=== PATIENT | male | born 1940 | race African-American/Black ===

== ENCOUNTER 2017-03-13 18:26 | Emergency (ER) | payer BC ==
[2017-03-13 18:35] VITALS: BP 121/57
--- NOTE | 2017-03-13 20:03 | UC ---
General HPI - HPI Summary HPI Summary: ONSET OF PROGRESSIVE FATIGUE OVER THE PAST 2 DAYS. ALSO HAS SOB, CHILLS AND "I JUST FEEL TERRIBLE". APPETITE HAS BEEN SIGNIFICANTLY DECREASED. IS C/O INTERMITTENT RIGHT SIDED ABDOMINAL PAIN. DENIES ANY CHANGE IN WEIGHT. NO ORTHOPNEA. - History of Current Complaint Chief Complaint: UCGeneralIllness Stated Complaint: TIRED,SOB,FINGERS CRAMPING Time Seen by Provider: 03/13/17 19:41 Hx Obtained From: Patient Onset/Duration: Gradual Onset, Lasting Days, Still Present Timing: Constant Onset Severity: Moderate Current Severity: Moderate Pain Intensity: 0 - Allergy/Home Medications Allergies/Adverse Reactions: Allergies Allergy/AdvReac Type Severity Reaction Status Date / Time Cephalexin [From Keflex] AdvReac Severe Nausea And Verified 03/13/17 18:35 Vomiting Home Medications: Home Medications Doxercalciferol CAP(NF) [Hectorol CAP(NF)] 0.5 mcg PO DAILY 03/13/17 [History Confirmed 03/13/17] Tamsulosin CAP* [Flomax CAP*] 0.4 mg PO DAILY 03/13/17 [History Confirmed ] Tizanidine HCl [Zanaflex] 2 mg PO BID PRN 03/13/17 [History Confirmed 03/13/17] PMH/Surg Hx/FS Hx/Imm Hx - Additional Past Medical History Additional PMH: ANEMIA Endocrine History: Diabetes Cardiovascular History: Hypertension, Congestive Heart Failure Respiratory History: COPD, Asthma Other History Of: Anticoagulant Therapy - Surgical History Surgical History: Yes Surgery Procedure, Year, and Place: ABDOMINAL HERNIA REPAIR, skull fracture in the . Aortic valve replacement September 2014 - Family History Known Family History: Positive: Cardiac Disease, Hypertension - Social History Alcohol Use: None Alcohol Amount: SOCIAL Substance Use Type: None, Other Substance Use Comment - Amount & Last Used: pt confused; current substance use is unknown, but no known history Smoking Status (MU): Light Every Day Tobacco Smoker Type: Cigars Amount Used/How Often: 1-2 cigarillos per day Length of Time of Smoking/Using Tobacco: 57 years Have You Smoked in the Last Year: Yes When Did the Patient Quit Smoking/Using Tobacco: 2014 Household Exposure Type: Cigarettes - Immunization History Most Recent Influenza Vaccination: 2014 Most Recent Tetanus Shot: 2013 Most Recent Pneumonia Vaccination: 2013 Review of Systems Constitutional: Chills, Fatigue Respiratory: Shortness Of Breath, Cough Cardiovascular: Negative Gastrointestinal: Abdominal Pain Genitourinary: Negative Musculoskeletal: Negative All Other Systems Reviewed And Are Negative: Yes Physical Exam Triage Information Reviewed: Yes Appearance: No Pain Distress, Well-Nourished, Other: - SEEMS FATIGUED Vital Signs: Initial Vital Signs Temp 98.9 F 03/13/17 18:32 Pulse 72 03/13/17 18:32 Resp 18 03/13/17 18:32 BP 121/57 03/13/17 18:32 Pulse Ox 97 03/13/17 18:32 Vital Signs Reviewed: Yes Eyes: Positive: Conjunctiva Clear ENT: Positive: Hearing grossly normal Neck: Positive: Supple Respiratory Exam: Normal Cardiovascular: Positive: Pulses Normal, Murmur:Sys:Grade _?_/ - 2/6 SYSTOLIC MURMUR Abdomen Description: Positive: Nontender, Soft. Negative: Guarding Musculoskeletal: Positive: No Edema Neurological: Positive: Alert Psychological: Positive: Age Appropriate Behavior Skin: Negative: rashes Diagnostics - EKG Cardiac Rate: NL - 61BPM Cardiac Rhythm: Sinus: Normal Ectopy: None ST Segment: Normal Course/Dx - Differential Dx - Multi-Symptom Provider Diagnoses: FATIGUE/SOB Discharge - Discharge Plan Condition: Stable Disposition: OTHER Discharge Disposition Comment: [place] [facility] [place] [place] Patient Education Materials: Dyspnea (ED), Fatigue (ED) Referrals: Romina Bolden MD [Primary Care Provider] - If Needed Additional Instructions: GO DIRECTLY TO THE ER FROM HERE FOR FURTHER EVALUATION.
== END 2017-03-13 20:26 ==
LOC: UCEAST 18:26
DX: R53.83 Other fatigue (principal); R06.02 Shortness of breath; E11.9 Type 2 diabetes mellitus without complications; I50.9 Heart failure, unspecified; I10 Essential (primary) hypertension; Z95.2 Presence of prosthetic heart valve; Z79.01 Long term (current) use of anticoagulants; J44.9 Chronic obstructive pulmonary disease, unspecified; Z88.1 Allergy status to other antibiotic agents; F17.210 Nicotine dependence, cigarettes, uncomplicated
CPT/HCPCS: 93005; 99212; G0463

== ENCOUNTER 2017-03-21 07:35 | Emergency (ER) | payer BC ==
[2017-03-21 08:11] VITALS: BP 134/66
--- NOTE | 2017-03-21 09:27 | UC ---
Rosemarie Núñez Rebecca, scribed for Noemí Avendaño MD on 03/21/17 at 0814 . Upper Extremity HPI - HPI Summary HPI Summary: Pt is a 76 y/o M who presents to [facility] unaccompanied with a CC of sudden onset R 2nd finger swelling. Sx began yesterday morning upon waking up, citing a possible spider bite. Reports he is having difficulty moving the finger secondary to swelling and pain which is currently ranked 9/10. Yesterday afternoon he soaked the finger in Epsom salt which improved sx, though the swelling returned this morning upon waking up. Additionally c/o chills. Denies CP, SOB, abdominal pain, N/V and dysuria. No problems with Sulfa medication. Pt reports he is right-handed. - History of Current Complaint Chief Complaint: UCUpperExtremity Stated Complaint: SWOLLEN FINGER Time Seen by Provider: 03/21/17 07:44 Hx Obtained From: Patient Onset/Duration: Lasting Days - Yesterday, Still Present Severity Currently: Severe Pain Intensity: 9 Pain Scale Used: 0-10 Numeric Location Of Pain: Is Discrete @ - Right 2nd finger Aggravating Factor(s): Nothing Alleviating Factor(s): Other: - Epsom salt soak Associated Signs And Symptoms: Positive: Swelling Related History: Dominant Hand Right - Allergies/Home Medications Allergies/Adverse Reactions: Allergies Allergy/AdvReac Type Severity Reaction Status Date / Time Cephalexin [From Keflex] AdvReac Severe Nausea And Verified 03/21/17 08:05 Vomiting PMH/Surg Hx/FS Hx/Imm Hx Endocrine History: Diabetes Cardiovascular History: Hypertension Respiratory History: COPD Other History Of: Anticoagulant Therapy - Surgical History Surgical History: Yes Surgery Procedure, Year, and Place: ABDOMINAL HERNIA REPAIR, skull fracture in the . Aortic valve replacement September 2014 - Family History Known Family History: Positive: Cardiac Disease, Hypertension Negative: Diabetes - Social History Alcohol Use: None Alcohol Amount: SOCIAL Substance Use Type: None, Other Substance Use Comment - Amount & Last Used: pt confused; current substance use is unknown, but no known history Smoking Status (MU): Light Every Day Tobacco Smoker Type: Cigars Amount Used/How Often: 1-2 cigarillos per day Length of Time of Smoking/Using Tobacco: 57 years Have You Smoked in the Last Year: Yes When Did the Patient Quit Smoking/Using Tobacco: 2014 Household Exposure Type: Cigarettes - Immunization History Most Recent Influenza Vaccination: 2014 Most Recent Tetanus Shot: 2013 Most Recent Pneumonia Vaccination: 2013 Review of Systems Constitutional: Chills Skin: Other - Right 2nd finger swelling and pain Eyes: Negative ENT: Negative Respiratory: Negative Cardiovascular: Negative Gastrointestinal: Negative Genitourinary: Negative Motor: Negative Neurovascular: Negative Musculoskeletal: Other: - Difficulty moving R 2nd finger secondary to swelling and pain Neurological: Negative Psychological: Negative All Other Systems Reviewed And Are Negative: Yes - Comments Additional Review of Systems Comments: NEGATIVE: CP, SOB, abdominal pain, N/V and dysuria Physical Exam Triage Information Reviewed: Yes Vital Signs: Initial Vital Signs Temp 98.4 F 03/21/17 08:08 Pulse 67 03/21/17 08:08 Resp 16 03/21/17 08:08 BP 134/66 03/21/17 08:08 Pulse Ox 99 03/21/17 08:08 Vital Signs Reviewed: Yes - Additional Comments Appearance: Well-appearing Eyes: Normal, Conjunctiva clear ENT: Normal ENT inspection. Dental: Normal Neck: Supple, non-tender, no lymphadenoatphy Lungs: Lungs clear, normal breath sounds, no respiratory distress, no accessory muscle use. Heart: RRR, murmur which he has known of, pulses normal. Abdomen: Nontender, soft. Musculoskeletal: The right proximal finger is mildly to moderately swollen and very tender with a slight amount of erythema. The finger is slightly warm to touch and he is able to move the finger. Sensation is intact and capillary refill is brisk. Neurological: Normal Psychiatric: Normal Skin: No open wound, bite errol or discharge. Upper Extremity Course/Dx - Course Course Of Treatment: Pt is a 76 y/o M who presents to [facility] unaccompanied with a CC of sudden onset R 2nd finger swelling. Sx began yesterday morning upon waking up, citing a possible spider bite. Reports he is having difficulty moving the finger secondary to swelling and pain which is currently ranked 9/ 10. Yesterday afternoon he soaked the finger in Epsom salt which improved sx, though the swelling returned this morning upon waking up. Additionally c/o chills. Denies CP, SOB, abdominal pain, N/V and dysuria. No problems with Sulfa medication. Pt reports he is right-handed. Pt will be D/C to home with Dx of cellulitis with Rx for Bactrim and a follow up with his PCP. He understands and agrees. Allergies noted. Elevated BP noted. - Differential Dx/Diagnosis Provider Diagnoses: 1. Cellulitis Discharge - Discharge Plan Condition: Stable Disposition: HOME Prescriptions: Sulfamethox/Trimethoprim DS* [Bactrim DS 800/160 TAB*] 1 tab PO BID #20 tab Patient Education Materials: Cellulitis (ED) Referrals: Romina Bolden MD [Primary Care Provider] - 2 Days The documentation as recorded by the Rosemarie camargo Rebecca accurately reflects the service I personally performed and the decisions made by , Noemí Avendaño MD.
== END 2017-03-21 09:25 | disposition home or self-care (01) ==
LOC: UCEAST 07:35
DX: L03.011 Cellulitis of right finger (principal); R68.83 Chills (without fever); E11.9 Type 2 diabetes mellitus without complications; I10 Essential (primary) hypertension; J44.9 Chronic obstructive pulmonary disease, unspecified; Z95.2 Presence of prosthetic heart valve; Z79.01 Long term (current) use of anticoagulants; Z88.1 Allergy status to other antibiotic agents; Z72.0 Tobacco use
CPT/HCPCS: 99212; G0463

== ENCOUNTER 2017-03-31 12:58 | Emergency (ER) | payer BC ==
[2017-03-31 13:12] VITALS: BP 129/55
--- NOTE | 2017-03-31 14:57 | RAD ---
HISTORY: Right index finger swelling and pain COMPARISONS: None VIEWS: 3, Frontal, lateral, and oblique views of the second digit of the right hand FINDINGS: BONE DENSITY: Normal. BONES: There is no displaced fracture. There is no appreciable erosion or periosteal reaction. JOINTS: There is no arthropathy. ALIGNMENT: There is no dislocation. SOFT TISSUES: There is soft tissue swelling centered at the PIP joint. OTHER FINDINGS: None. IMPRESSION: SOFT TISSUE SWELLING. NO ACUTE OSSEOUS INJURY. IF SYMPTOMS PERSIST, RECOMMEND REPEAT IMAGING.
--- NOTE | 2017-03-31 15:25 | UC ---
Progress - Progress Note Progress Note: XRAY SHOWS SOFT TISSUE SWELLING BUT NO ACUTE OSSEOUS INJURY. D/C PLAN PER DR. LENNIE RENTERIA, PREDNISONE, BLOOD WORK - OMKAR MEADOWS MD
[2017-03-31 18:36] LABS: Hematocrit 36 % (42-52); Hemoglobin 11.9 g/dl (14.0-18.0); Mean Corpuscular HGB Conc 33 g/dl (31-36); Mean Corpuscular Hemoglobin 29 pg (27-31); Mean Corpuscular Volume 89 fL (80-94); Mean Platelet Volume 7 um3 (7.4-10.4); Red Cell Distribution Width 15 % (10.5-15); White Blood Count 6.5 10^3/ul (3.5-10.8)
[2017-03-31 18:48] LABS: BUN/Creatinine Ratio 14.1 (8-20); C Reactive Protein 3.82 mg/L (< 5.00); Calcium 8.8 mg/dL (8.6-10.3); EGFR African American 15.6 (>60); EGFR Non-African American 12.1 (>60)
[2017-03-31 18:51] LABS: Potassium 6.3 mmol/L (3.5-5.0)
--- NOTE | 2017-03-31 19:07 | UC ---
Progress - Progress Note Progress Note: XRAY SHOWS SOFT TISSUE SWELLING BUT NO ACUTE OSSEOUS INJURY. D/C PLAN PER DR. LENNIE RENTERIA, PREDNISONE, BLOOD WORK - OMKAR MEADOWS MD 03/31/17 7:06 PM notify pt of critical lab value (panic value for K+) he should go to the ER to have blood retested Wong Gibbs MD
[2017-03-31 19:45] LABS: Erythrocyte Sed Rate 34 mm/Hr (0-40)
--- NOTE | 2017-04-07 08:25 | UC ---
Tj Núñez Nilda, scribed for Monika Jackson MD on 03/31/17 at 1445 . Skin Complaint HPI - HPI Summary HPI Summary: This patient is a 76 y.o. M presenting to [facility] with a chief complaint of skin irritation to right 2nd finger since 02/28/17. On 03/21/17 the patient was seen for cellulitis and was treated with a full course of Bactrim that he finished last night. He states that his symptoms have not resolved. He reports pain and swelling to the right 2nd finger that radiates up right arm, but denies purulence from finger. He rates the pain 8/10 in severity. Patient is unsure how symptoms occurred but notes that 1 week before cellulitis onset, he had gotten stung by a wasp in the webbing between the thumb and finger on the right hand. PMHx includes DM and sepsis. - History of Current Complaint Chief Complaint: UCSkin Time Seen by Provider: 03/31/17 13:47 Stated Complaint: SKIN ISSUE Hx Obtained From: Patient Onset/Duration: Gradual Onset, Lasting Weeks, Still Present Current Severity: Moderate Pain Intensity: 8 Pain Scale Used: 0-10 Numeric Location: Hand (Right) Character: Swelling, Painful Alleviating Factor(s): Nothing - Allergy/Home Medications Allergies/Adverse Reactions: Allergies Allergy/AdvReac Type Severity Reaction Status Date / Time Cephalexin [From Keflex] AdvReac Severe Nausea And Verified 03/31/17 20:46 Vomiting Review of Systems Respiratory: Negative Musculoskeletal: Other: - right 2nd finger swelling and pain that radiates up right arm; negative purulence All Other Systems Reviewed And Are Negative: Yes PMH/Surg Hx/FS Hx/Imm Hx Other History Of: Anticoagulant Therapy - Surgical History Surgical History: Yes Surgery Procedure, Year, and Place: ABDOMINAL HERNIA REPAIR, skull fracture in the . Aortic valve replacement September 2014 - Family History Known Family History: Positive: Cardiac Disease, Hypertension Negative: Diabetes - Social History Alcohol Use: None Alcohol Amount: SOCIAL Substance Use Type: None, Other Substance Use Comment - Amount & Last Used: pt confused; current substance use is unknown, but no known history Smoking Status (MU): Light Every Day Tobacco Smoker Type: Cigars Amount Used/How Often: 1-2 cigarillos per day Length of Time of Smoking/Using Tobacco: 57 years Have You Smoked in the Last Year: Yes When Did the Patient Quit Smoking/Using Tobacco: 2014 Household Exposure Type: Cigarettes - Immunization History Most Recent Influenza Vaccination: 2014 Most Recent Tetanus Shot: 2013 Most Recent Pneumonia Vaccination: 2013 Physical Exam Triage Information Reviewed: Yes Appearance: Well-Nourished Vital Signs: Initial Vital Signs Temp 97.9 F 03/31/17 13:06 Pulse 72 03/31/17 13:06 Resp 18 03/31/17 13:06 BP 129/55 03/31/17 13:06 Pulse Ox 99 03/31/17 13:06 Vital Signs Reviewed: Yes Eye Exam: Normal ENT Exam: Normal Respiratory Exam: Normal Respiratory: Positive: Other: - no dyspnea, no tachypnea, normal respiratory rate Cardiovascular Exam: Normal Cardiovascular: Positive: Other: - Heart rate regular, good general skin color, good capillary refill Abdominal Exam: Normal Abdomen Description: Positive: Nontender, No Organomegaly, Soft Bowel Sounds: Positive: Present Musculoskeletal: Positive: Strength Intact, Other: - Swollen at right PIP, Palmar area swelling that extends to distal 2nd NTP, no stinger visible. Patient can move hand in all directions through all extension and retraction movements are limited. Distal sensation to light touch present. Small amount of hemosiderosis. Cap refill less than 2 seconds. Neurological Exam: Normal Neurological: Positive: Other: - nonfocal, grossly intact Psychological Exam: Normal Psychological: Positive: Other: - conversing easily and appropriately Skin Exam: Normal Skin: Positive: Other - no visible or reported rash Course/Dx - Course Course Of Treatment: Will follow up, pending XRAY of hand (right index finger). s/o Dr. Li 14:30 - Diagnoses Provider Diagnoses: cellulitis R hand Discharge - Discharge Plan Condition: Stable Disposition: HOME Patient Education Materials: Cellulitis (ED), Swollen Joint (ED) Forms: *Work Release Referrals: Romina Bolden MD [Primary Care Provider] - Additional Instructions: Follow up Dr. Bolden ([place]) in 2 days. Seek medical attention for worse or new problems in the meantime. Xray finger today Blood work: cbc bmp sed rate crp Watch blood sugar closely, jace next 6 days. Check tetanus immunization status at your primary care physician office. The documentation as recorded by the Tj camargo Nilda accurately reflects the service I personally performed and the decisions made by me, Monika Jackson MD.
== END 2017-03-31 14:55 | disposition home or self-care (01) ==
LOC: UCEAST 12:58
DX: L03.113 Cellulitis of right upper limb (principal); Z95.2 Presence of prosthetic heart valve; Z79.01 Long term (current) use of anticoagulants; Z88.1 Allergy status to other antibiotic agents; Z72.0 Tobacco use
CPT/HCPCS: 36415; 73140; 80048; 85025; 85652; 86140; 99212; G0463

== ENCOUNTER 2017-03-31 20:38 | Emergency (ER) | payer BC ==
[2017-03-31 23:13] LABS: Hematocrit 36 % (42-52); Hemoglobin 11.9 g/dl (14.0-18.0); Mean Corpuscular HGB Conc 33 g/dl (31-36); Mean Corpuscular Hemoglobin 30 pg (27-31); Mean Corpuscular Volume 88 fL (80-94); Mean Platelet Volume 7 um3 (7.4-10.4); Red Blood Count 4.03 10^6/ul (4.0-5.4); Red Cell Distribution Width 15 % (10.5-15); White Blood Count 6.4 10^3/ul (3.5-10.8)
[2017-03-31 23:28] LABS: Albumin 3.9 g/dL (3.2-5.2); BUN/Creatinine Ratio 15.8 (8-20); Calcium 8.7 mg/dL (8.6-10.3); EGFR African American 16.6 (>60); EGFR Non-African American 12.9 (>60); Globulin 3.3 g/dL (2-4); Total Bilirubin 0.3 mg/dL (0.2-1.0); Total Protein 7.2 g/dL (6.4-8.9)
[2017-03-31 23:55] LABS: Potassium 5.7 mmol/L (3.5-5.0)
[2017-04-01] MEDS ORDERED: Sodium Polystyrene ORAL.SOL* 15 GM/60 ML BTL PO ONE (01:18)
--- NOTE | 2017-04-01 01:24 | ED ---
Parish Núñez Benjamin, scribed for Brendan Pringle MD on 04/01/17 at 0027 . Complex/Multi-Sys Presentation - HPI Summary HPI Summary: 76yo male comes to ED after being advised by PA at . Pt recently had a right index finger cellulitis from a bug bite, which pt took abx course given from , but right index finger pain and funny sensation continued so pt returned this afternoon. Pt got a call from to come to ED for abnormal blood results: BUN of 67, creatinine of 4.75, and potassium of 6.3. Pt is diabetic and has hx of kidney issue from DM. - History Of Current Complaint Chief Complaint: EDGeneral Time Seen by Provider: 04/01/17 00:14 Hx Obtained From: Patient Onset/Duration: Gradual Onset, Lasting Weeks, Still Present Timing: Constant Severity Currently: Mild Severity Initially: Mild Location: Pain At: - right index finger - Allergies/Home Medications Allergies/Adverse Reactions: Allergies Allergy/AdvReac Type Severity Reaction Status Date / Time Cephalexin [From Keflex] AdvReac Severe Nausea And Verified 03/31/17 20:46 Vomiting PMH/Surg Hx/FS Hx/Imm Hx Endocrine/Hematology History: Reports: Hx Anticoagulant Therapy, Hx Blood Transfusions, Hx Diabetes - type 2 Denies: Hx Thyroid Disease, Hx Unexplained Bleeding Cardiovascular History: Reports: Hx Congestive Heart Failure, Hx Coronary Artery Disease, Hx Hypercholesterolemia, Hx Hypertension, Hx Valvular Heart Disease - aortic valve replaced Denies: Hx Auto Implanted Cardiovert Defib, Hx Congenital Heart Disease, Hx Myocardial Infarction, Hx Pacemaker/ICD, Hx Syncope Comment Only: Other Cardiovascular Problems/Disorders - AORTIC STENOSIS Respiratory History: Reports: Hx Asthma, Hx Chronic Obstructive Pulmonary Disease (COPD), Hx Sleep Apnea Comment Only: Other Respiratory Problems/Disorders - SOB GI History: Denies: Hx Ulcer Comment Only: Other GI Disorders - HERNIA REPAIR History: Reports: Hx Benign Prostatic Hyperplasia, Hx Chronic Renal Failure - CKD stage 3, Hx Renal Disease - RENAL FUNCTION DUE TO DIABETES, Other Problems/Disorders - chronic renal insufficiency Denies: Hx Dialysis Musculoskeletal History: Reports: Hx Back Problems, Hx Gout, Other Musculoskeletal History - leg and foot cramps Sensory History: Reports: Hx Contacts or Glasses Denies: Hx Eye Injury, Hx Glaucoma, Hx Hearing Aid, Hx Hearing Problem Opthamlomology History: Reports: Hx Contacts or Glasses Denies: Hx Eye Injury, Hx Glaucoma Neurological History: Reports: Hx Transient Ischemic Attacks (TIA) Denies: Hx Dementia, Hx Developmental Delay, Hx Migraine, Hx Seizures, Hx Spinal Cord Injury Psychiatric History: Reports: Hx Anxiety Denies: Hx Attention Deficit Hyperactivity Disorder, Hx Eating Disorder, Hx Depression, Hx Panic Disorder, Hx Post Traumatic Stress Disorder, Hx Inpatient Treatment, Hx Community Mental Health Tx, Hx Schizophrenia, Hx Bipolar Disorder , Hx Suicide Attempt, Hx of Violent Episodes Against Others, Hx Substance Abuse , Other Psychiatric Issues/Disorders - Surgical History Surgery Procedure, Year, and Place: ABDOMINAL HERNIA REPAIR, skull fracture in the . Aortic valve replacement September 2014 Hx Anesthesia Reactions: No - Immunization History Date of Tetanus Vaccine: unknown Date of Influenza Vaccine: None Infectious Disease History: No Infectious Disease History: Denies: Hx Clostridium Difficile, Hx Hepatitis, Hx Human Immunodeficiency Virus (HIV), Hx of Known/Suspected MRSA, Hx Shingles, Hx Tuberculosis, Hx Known/ Suspected VRE, Hx Known/Suspected VRSA, History Other Infectious Disease, Traveled Outside the [place] in Last 30 Days - Family History Known Family History: Positive: Cardiac Disease, Hypertension Negative: Diabetes - Social History Alcohol Use: None Alcohol Amount: SOCIAL Substance Use Type: Reports: None, Other Substance Use Comment - Amount & Last Used: pt confused; current substance use is unknown, but no known history Hx Tobacco Use: Yes Smoking Status (MU): Light Every Day Tobacco Smoker Type: Cigars Amount Used/How Often: 1-2 cigarillos per day Length of Time of Smoking/Using Tobacco: 57 years Have You Smoked in the Last Year: Yes Review of Systems Constitutional: Negative Eyes: Negative ENT: Negative Cardiovascular: Negative Respiratory: Negative Gastrointestinal: Negative Genitourinary: Negative Musculoskeletal: Negative Skin: Negative Neurological: Negative Psychological: Normal All Other Systems Reviewed And Are Negative: Yes Physical Exam Triage Information Reviewed: Yes Vital Signs On Initial Exam: Initial Vitals Temp Pulse Resp BP Pulse Ox 97.4 F 68 16 140/59 99 03/31/17 20:40 03/31/17 20:40 03/31/17 20:40 03/31/17 20:40 03/31/17 20:40 Vital Signs Reviewed: Yes Appearance: Positive: Well-Appearing, No Pain Distress, Well-Nourished Skin: Positive: Warm, Skin Color Reflects Adequate Perfusion, Dry Head/Face: Positive: Normal Head/Face Inspection Eyes: Positive: EOMI, WILLY ENT: Positive: Normal ENT inspection Neck: Positive: Supple, Nontender Respiratory/Lung Sounds: Positive: Clear to Auscultation, Breath Sounds Present Cardiovascular: Positive: RRR, Pulses are Symmetrical in both Upper and Lower Extremities Abdomen Description: Positive: Nontender, Soft Bowel Sounds: Positive: Present Musculoskeletal: Positive: Strength/ROM Intact, Other - right index PIP pain and swelling Neurological: Positive: Sensory/Motor Intact, Alert, Oriented to Person Place, Time Psychiatric: Positive: Affect/Mood Appropriate Diagnostics - Vital Signs Vital Signs Temp Pulse Resp BP Pulse Ox 03/31/17 22:25 97.1 F 64 16 150/60 99 03/31/17 20:40 97.4 F 68 16 140/59 99 - Laboratory Lab Results: Lab Results 03/31/17 03/31/17 Range/Units 22:58 22:58 WBC 6.4 (3.5-10.8) 10^3/ul RBC 4.03 (4.0-5.4) 10^6/ul Hgb 11.9 L (14.0-18.0) g/dl Hct 36 L (42-52) % MCV 88 (80-94) fL MCH 30 (27-31) pg MCHC 33 (31-36) g/dl RDW 15 (10.5-15) % Plt Count 392 (150-450) 10^3/ul MPV 7 L (7.4-10.4) um3 Neut % (Auto) 60.2 (38-83) % Lymph % (Auto) 21.8 L (25-47) % [place] % (Auto) 9.9 H (1-9) % Eos % (Auto) 6.4 H (0-6) % Baso % (Auto) 1.7 (0-2) % Absolute Neuts (auto) 3.9 (1.5-7.7) 10^3/ul Absolute Lymphs (auto) 1.4 (1.0-4.8) 10^3/ul Absolute Monos (auto) 0.6 (0-0.8) 10^3/ul Absolute Eos (auto) 0.4 (0-0.6) 10^3/ul Absolute Basos (auto) 0.1 (0-0.2) 10^3/ul Absolute Nucleated RBC 0 10^3/ul Nucleated RBC % 0 Sodium 133 (133-145) mmol/L Potassium 5.7 H (3.5-5.0) mmol/L Chloride 107 (101-111) mmol/L Carbon Dioxide 19 L (22-32) mmol/L Anion Gap 7 (2-11) mmol/L BUN 71 H (6-24) mg/dL Creatinine 4.49 H (0.67-1.17) mg/dL Est GFR ( Amer) 16.6 (>60) Est GFR (Non-Af Amer) 12.9 (>60) BUN/Creatinine Ratio 15.8 (8-20) Glucose 109 H (70-100) mg/dL Calcium 8.7 (8.6-10.3) mg/dL Total Bilirubin 0.30 (0.2-1.0) mg/dL AST 11 L (13-39) U/L ALT 11 (7-52) U/L Alkaline Phosphatase 55 (34-104) U/L Total Protein 7.2 (6.4-8.9) g/dL Albumin 3.9 (3.2-5.2) g/dL Globulin 3.3 (2-4) g/dL Albumin/Globulin Ratio 1.2 (1-3) Result Diagrams: 03/31/17 22:58 03/31/17 22:58 Lab Statement: Any lab studies that have been ordered have been reviewed, and results considered in the medical decision making process. - EKG 0046. Cardiac Rate: NL - 64bpm EKG Rhythm: Sinus Rhythm EKG Interpretation: left atrial enlargement, NH interval of 221 EKG Comparison: No Significant Change - compared to 03/13/17 Complex Multi-Symp Course/Dx Course Of Treatment: Reviewed pts medication and allergy lists. High blood pressure noted. DISCUSSED RESULTS WITH PATIENT. EKG HAS NO CHANGE FROM LAST EKG. GIVEN KAYEXALATE 15 GMS IN THE ED. F/U WITH HIS DOCTOR TODAY. - Diagnoses Provider Diagnoses: Hyperkalemia, Chronic renal insufficiency Discharge - Discharge Plan Condition: Stable Disposition: HOME Patient Education Materials: Hyperkalemia (ED), Chronic Kidney Disease (ED) Referrals: Romina Bolden MD [Primary Care Provider] - Additional Instructions: FOLLOW UP WITH YOUR DOCTOR TODAY FOR YOUR ELEVATED POTASSIUM OF 5.7. YOU WERE GIVEN KAYEXALATE 15 GMS IN THE EMERGENCY DEPARTMENT. RETURN TO THE EMERGENCY DEPARTMENT FOR ANY WORSENING OF YOUR CONDITION OR QUESTIONS OR CONCERNS. The documentation as recorded by the Parish camargo Benjamin accurately reflects the service I personally performed and the decisions made by me, Brendan Pringle MD.
[2017-04-01 02:35] VITALS: BP 160/76
== END 2017-04-01 02:15 | disposition home or self-care (01) ==
LOC: ED 20:38
DX: N18.9 Chronic kidney disease, unspecified (principal); E87.5 Hyperkalemia; F17.210 Nicotine dependence, cigarettes, uncomplicated; Z79.01 Long term (current) use of anticoagulants
CPT/HCPCS: 36415; 80053; 85025; 93005; 99282; A9270-GY

== ENCOUNTER 2017-04-03 12:24 | Observation (INO) | payer BC ==
[2017-04-03 13:38] LABS: Hematocrit 36 % (42-52); Mean Corpuscular HGB Conc 33 g/dl (31-36); Mean Corpuscular Hemoglobin 29 pg (27-31); Mean Corpuscular Volume 89 fL (80-94); Mean Platelet Volume 8 um3 (7.4-10.4); Red Blood Count 4.08 10^6/ul (4.0-5.4); Red Cell Distribution Width 15 % (10.5-15); White Blood Count 9.9 10^3/ul (3.5-10.8)
[2017-04-03 13:54] LABS: Albumin 3.8 g/dL (3.2-5.2); BUN/Creatinine Ratio 17.7 (8-20); EGFR African American 28.4 (>60); EGFR Non-African American 22.1 (>60); Globulin 3.3 g/dL (2-4); Total Bilirubin 0.3 mg/dL (0.2-1.0); Total Protein 7.1 g/dL (6.4-8.9)
[2017-04-03 13:55] LABS: Troponin I 0.01 ng/mL (<0.04)
--- NOTE | 2017-04-03 13:58 | RAD ---
INDICATION: Chest pain. COMPARISON: Comparison is made with a prior chest x-ray study from September 24, 2015. TECHNIQUE: A portable view of the chest was obtained. FINDINGS: The patient is status post sternotomy. The heart appears to be within normal limits in size. The lungs are clear. No pleural effusion is seen. IMPRESSION: POSTSURGICAL CHANGES, NO EVIDENCE FOR ACUTE FINDING.
[2017-04-03 14:06] LABS: Potassium 7.2 mmol/L (3.5-5.0)
[2017-04-03] MEDS ORDERED: Sodium Polystyrene ORAL.SOL* 15 GM/60 ML BTL PO ONE (14:13)
[2017-04-03] MEDS ORDERED: hydrOXYzine HCL TAB* 25 MG PO PRN (14:49)
--- NOTE | 2017-04-03 15:06 | ED ---
Elliott Núñez Alfonso, scribed for Randy Bishop MD on 04/03/17 at 1258 . HPI Chest Pain - HPI Summary HPI Summary: This patient is a 76 year old M presenting to [facility] with a chief complaint of chest pain since 729 today. The patient rates the pain 7/10 in severity. Symptoms aggravated by sitting up. Symptoms alleviated by nothing. Patient reports upper abdominal pain, coughing, urinary frequency, and right sided drooling from the mouth (for some time). Patient denies diaphoresis, SOB, calf swelling, and N/V. - History of Current Complaint Chief Complaint: EDGeneral Time Seen by Provider: 04/03/17 12:56 Hx Obtained From: Patient Onset/Duration: Started Hours Ago - 729 today, Still Present Timing: Constant Current Severity: Moderate Pain Intensity: 7 Pain Scale Used: 0-10 Numeric Aggravating Factor(s): Other: - Sitting up Alleviating Factor(s): Nothing Associated Signs and Symptoms: Positive: Other: - upper abdominal pain, coughing , urinary frequency, and right sided drooling from the mouth (for some time). Patient denies diaphoresis, SOB, calf swelling, and N/V. - Additional Pertinent History Primary Care Physician: [id number] - Allergy/Home Medications Allergies/Adverse Reactions: Allergies Allergy/AdvReac Type Severity Reaction Status Date / Time Cephalexin [From Keflex] AdvReac Severe Nausea And Verified 03/31/17 20:46 Vomiting Home Medications: Home Medications Darifenacin (NF) [Enablex (NF)] 15 mg PO DAILY 04/03/17 [History Confirmed 04/03] Metoprolol Tartrate TAB* [Lopressor TAB*] 12.5 mg PO BID 04/03/17 [History Confirmed 04/03/17] Pravastatin (NF) [Pravachol (NF)] 20 mg PO DAILY 04/03/17 [History Confirmed ] hydrOXYzine HCL TAB* [Atarax 25 MG TAB*] 25 mg PO BEDTIME PRN 04/03/17 [History Confirmed 04/03/17] tiZANidine TAB* [Zanaflex TAB*] 1 - 2 mg PO BID PRN 04/03/17 [History Confirmed 04/03/17] PMH/Surg Hx/FS Hx/Imm Hx Endocrine/Hematology History: Reports: Hx Anticoagulant Therapy, Hx Blood Transfusions, Hx Diabetes - type 2 Denies: Hx Thyroid Disease, Hx Unexplained Bleeding Cardiovascular History: Reports: Hx Congestive Heart Failure, Hx Coronary Artery Disease, Hx Hypercholesterolemia, Hx Hypertension, Hx Valvular Heart Disease - aortic valve replaced Denies: Hx Auto Implanted Cardiovert Defib, Hx Congenital Heart Disease, Hx Myocardial Infarction, Hx Pacemaker/ICD, Hx Syncope Comment Only: Other Cardiovascular Problems/Disorders - AORTIC STENOSIS Respiratory History: Reports: Hx Asthma, Hx Chronic Obstructive Pulmonary Disease (COPD), Hx Sleep Apnea Comment Only: Other Respiratory Problems/Disorders - SOB GI History: Denies: Hx Ulcer Comment Only: Other GI Disorders - HERNIA REPAIR History: Reports: Hx Benign Prostatic Hyperplasia, Hx Chronic Renal Failure - CKD stage 3, Hx Renal Disease - RENAL FUNCTION DUE TO DIABETES, Other Problems/Disorders - chronic renal insufficiency Denies: Hx Dialysis Musculoskeletal History: Reports: Hx Back Problems, Hx Gout, Other Musculoskeletal History - leg and foot cramps Sensory History: Reports: Hx Contacts or Glasses Denies: Hx Eye Injury, Hx Glaucoma, Hx Hearing Aid, Hx Hearing Problem Opthamlomology History: Reports: Hx Contacts or Glasses Denies: Hx Eye Injury, Hx Glaucoma Neurological History: Reports: Hx Transient Ischemic Attacks (TIA) Denies: Hx Dementia, Hx Developmental Delay, Hx Migraine, Hx Seizures, Hx Spinal Cord Injury Psychiatric History: Reports: Hx Anxiety Denies: Hx Attention Deficit Hyperactivity Disorder, Hx Eating Disorder, Hx Depression, Hx Panic Disorder, Hx Post Traumatic Stress Disorder, Hx Inpatient Treatment, Hx Community Mental Health Tx, Hx Schizophrenia, Hx Bipolar Disorder , Hx Suicide Attempt, Hx of Violent Episodes Against Others, Hx Substance Abuse , Other Psychiatric Issues/Disorders - Surgical History Surgery Procedure, Year, and Place: ABDOMINAL HERNIA REPAIR, skull fracture in the . Aortic valve replacement September 2014 Hx Anesthesia Reactions: No - Immunization History Date of Tetanus Vaccine: unknown Date of Influenza Vaccine: None Infectious Disease History: No Infectious Disease History: Denies: Hx Clostridium Difficile, Hx Hepatitis, Hx Human Immunodeficiency Virus (HIV), Hx of Known/Suspected MRSA, Hx Shingles, Hx Tuberculosis, Hx Known/ Suspected VRE, Hx Known/Suspected VRSA, History Other Infectious Disease, Traveled Outside the [place] in Last 30 Days - Family History Known Family History: Positive: Cardiac Disease, Hypertension Negative: Diabetes - Social History Alcohol Use: None Alcohol Amount: SOCIAL Substance Use Type: Reports: None, Other Substance Use Comment - Amount & Last Used: pt confused; current substance use is unknown, but no known history Hx Tobacco Use: Yes Smoking Status (MU): Light Every Day Tobacco Smoker Type: Cigars Amount Used/How Often: 1-2 cigarillos per day Length of Time of Smoking/Using Tobacco: 57 years Have You Smoked in the Last Year: Yes Review of Systems Negative: Skin Diaphoresis Positive: Other - right sided drooling from the mouth (for some time) Positive: Chest Pain Positive: Cough. Negative: Shortness Of Breath Positive: Abdominal Pain. Negative: Vomiting, Nausea Positive: frequency Negative: Edema All Other Systems Reviewed And Are Negative: Yes Physical Exam Triage Information Reviewed: Yes Vital Signs On Initial Exam: Initial Vitals Temp Pulse Resp BP Pulse Ox 96.5 F 59 20 171/75 99 04/03/17 12:25 04/03/17 12:25 04/03/17 12:25 04/03/17 12:25 04/03/17 12:25 Vital Signs Reviewed: Yes Appearance: Positive: Well-Appearing, No Pain Distress Skin: Positive: Warm, Skin Color Reflects Adequate Perfusion, Dry, Other - Healed sternotomy scar Head/Face: Positive: Normal Head/Face Inspection Eyes: Positive: Normal ENT: Positive: Normal ENT inspection Neck: Positive: Supple, Nontender Cardiovascular: Positive: RRR, Other - Systolic ejection murmur Abdomen Description: Positive: Soft, Other: - Epigastric tenderness. Bowel Sounds: Positive: Present Musculoskeletal: Positive: Other - Xiphoid tenderness. Neurological: Positive: Normal, Sensory/Motor Intact, Alert, Oriented to Person Place, Time, CN Intact II-III Psychiatric: Positive: Normal, Affect/Mood Appropriate Diagnostics - Vital Signs Vital Signs Temp Pulse Resp BP Pulse Ox 04/03/17 12:25 96.5 F 59 20 171/75 99 - Laboratory Lab Results: Lab Results 04/03/17 04/03/17 Range/Units 13:21 13:21 WBC 9.9 (3.5-10.8) 10^3/ul RBC 4.08 (4.0-5.4) 10^6/ul Hgb 12.0 L (14.0-18.0) g/dl Hct 36 L (42-52) % MCV 89 (80-94) fL MCH 29 (27-31) pg MCHC 33 (31-36) g/dl RDW 15 (10.5-15) % Plt Count 371 (150-450) 10^3/ul MPV 8 (7.4-10.4) um3 Neut % (Auto) 89.4 H (38-83) % Lymph % (Auto) 6.3 L (25-47) % Kleberg % (Auto) 3.3 (1-9) % Eos % (Auto) 0.4 (0-6) % Baso % (Auto) 0.6 (0-2) % Absolute Neuts (auto) 8.8 H (1.5-7.7) 10^3/ul Absolute Lymphs (auto) 0.6 L (1.0-4.8) 10^3/ul Absolute Monos (auto) 0.3 (0-0.8) 10^3/ul Absolute Eos (auto) 0 (0-0.6) 10^3/ul Absolute Basos (auto) 0.1 (0-0.2) 10^3/ul Absolute Nucleated RBC 0 10^3/ul Nucleated RBC % 0 Sodium 132 L (133-145) mmol/L Potassium 7.2 H* D (3.5-5.0) mmol/L Chloride 108 (101-111) mmol/L Carbon Dioxide 21 L (22-32) mmol/L Anion Gap 3 (2-11) mmol/L BUN 50 H (6-24) mg/dL Creatinine 2.82 H (0.67-1.17) mg/dL Est GFR ( Amer) 28.4 (>60) Est GFR (Non-Af Amer) 22.1 (>60) BUN/Creatinine Ratio 17.7 (8-20) Glucose 168 H (70-100) mg/dL Calcium 9.0 (8.6-10.3) mg/dL Total Bilirubin 0.30 (0.2-1.0) mg/dL AST 14 (13-39) U/L ALT 16 (7-52) U/L Alkaline Phosphatase 52 (34-104) U/L Troponin I 0.01 (<0.04) ng/mL Total Protein 7.1 (6.4-8.9) g/dL Albumin 3.8 (3.2-5.2) g/dL Globulin 3.3 (2-4) g/dL Albumin/Globulin Ratio 1.2 (1-3) Result Diagrams: 04/03/17 13:21 04/03/17 13:21 Lab Statement: Any lab studies that have been ordered have been reviewed, and results considered in the medical decision making process. - Radiology CXR Radiology Interpretation Completed By: Radiologist - POSTSURGICAL CHANGES, NO EVIDENCE FOR ACUTE FINDING. ED physician has reviewed this radiology report and agrees. - EKG 1232 Cardiac Rate: Bradycardia - BPM 54 EKG Rhythm: Sinus Bradycardia EKG Interpretation: Left atrial enlargement Chest Pain Course/Dx - Course Course Of Treatment: Mr. Segura presented with what seemed to be a chest wall pain. His K+ was found to be quite high at 7.2. His ecg was OK. He was given Ca++ and Kayexelate and admitted to the ICU. - Diagnoses Provider Diagnoses: Hyperkalemia, Renal insufficiency - Provider Notifications Discussed Care Of Patient With: Megan Kohli Time Discussed With Above Provider: 14:12 Instructed by Provider To: Other - Consulted Dr. Kohli (hospitalist) who agrees to admit. Discharge - Discharge Plan Condition: Stable Disposition: ADMITTED TO [facility] The documentation as recorded by the Elliott camargo Alfonso accurately reflects the service I personally performed and the decisions made by me, Randy Bishop MD.
--- NOTE | 2017-04-03 15:12 | ADMNOTE ---
Subjective Date of Service: 04/03/17 Interval History: ADMISSION HISTORY AND PHYSICAL EXAM: Allergies Allergy/AdvReac Type Severity Reaction Status Date / Time Cephalexin [From Keflex] AdvReac Severe Nausea And Verified 03/31/17 20:46 Vomiting Home Medications Medication Instructions Recorded Confirmed Type Docusate CAP* [Colace Cap*] 100 mg PO BID PRN 08/02/12 04/03/17 History Furosemide TAB* [Lasix TAB*] 40 mg PO DAILY 08/02/12 04/03/17 History Finasteride TAB* [Proscar TAB*] 5 mg PO DAILY 09/21/13 04/03/17 History Aspirin EC Low Dose* [Ecotrin EC 81 mg PO DAILY 09/07/15 04/03/17 History Low Dose 81 MG*] Pantoprazole TAB (NF) [Protonix 40 mg PO DAILY 09/07/15 04/03/17 History TAB (NF)] Doxercalciferol CAP(NF) [Hectorol 0.5 mcg PO DAILY 03/13/17 04/03/17 History CAP(NF)] Tamsulosin CAP* [Flomax CAP*] 0.4 mg PO DAILY 03/13/17 04/03/17 History Sulfamethox/Trimethoprim DS* 1 tab PO BID #20 tab 03/21/17 04/03/17 Rx [Bactrim DS 800/160 TAB*] DOXYcycline CAP(*) [DOXYcycline 100 mg PO BID #14 cap 03/31/17 04/03/17 Rx 100MG CAP(*)] Nicotine PATCH 14 MG/24 HR* 14 mg TRANSDERM DAILY 03/31/17 04/03/17 History predniSONE TAB* [Deltasone TAB*] 10 mg PO DAILY #9 tab 03/31/17 04/03/17 Rx Darifenacin (NF) [Enablex (NF)] 15 mg PO DAILY 04/03/17 04/03/17 History Metoprolol Tartrate TAB* 12.5 mg PO BID 04/03/17 04/03/17 History [Lopressor TAB*] Pravastatin (NF) [Pravachol (NF)] 20 mg PO DAILY 04/03/17 04/03/17 History hydrOXYzine HCL TAB* [Atarax 25 MG 25 mg PO BEDTIME PRN 04/03/17 04/03/17 History TAB*] tiZANidine TAB* [Zanaflex TAB*] 1 - 2 mg PO BID PRN 04/03/17 04/03/17 History HPI: The patient sought care at an urgent care center last week due to a swollen, painful R index finger. He was later called to go to the ED because of the results of his blood tests. His K+ was 6.3 on 03/31. He was given Kayexatalte and the K+ fell below 6 and he was discharged home. He was to see a director of online merchandising but hasn't done this yet. This AM he awoke at 6:30 AM, had his AM meds. At 7: 30 he developed mid-sternal chest pain, no radiation, no assoc sx's. It is still present, worse with cough. Social History: Findings - Smoker. No alcohol abuse. 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 Lives alone. SDM is his friend Vaishali Watson in [place], Past Medical History: Findings - Cardiac stents, CKD, AVR, DM, HL Review of Systems - Measurements Intake and Output: Intake and Output Last 24 Hours 04/01/17 04/02/17 04/03/17 04/04/17 06:59 06:59 06:59 06:59 Weight 169 lb - Review of Systems Constitutional Symptoms: Negative: Weight Gain, Weight Loss, Weakness, Fatigue, Fever, Night Sweats, Unexplained Falls, Other Dermatology: Positive: Normal HEENT: Positive: Normal Eyes: Positive: Normal Thyroid: Positive: Normal Pulmonary: Positive: Cough Cardiology: Positive: Chest Pain Gastroenterology: Positive: Normal Genital - Urinary: Positive: Normal Musculoskeletal: Negative: Joint Pain, Joint Stiffness, Arthritis, Osteoporosis, Low Back Pain , Sciatica, Joint Deformities, Kyphoscoliosis, Other Endocrinology: Positive: Obesity, Diabetes Mellitus Hematologic/Lymphatic: Positive: Anemia Neurology: Positive: Change in Memory Psychiatry: Positive: Normal Allergic/Immunologic: Negative: Hx Anaphylaxis, Hx Angioedema, Hx Environmental, Hx Seasonal, Athsma, Hx HIV, Immunocompromise, Swollen Glands LymphNodes, Other Objective Active Medications: Aspirin (Aspirin Ec Low Dose*) 81 mg PO DAILY [facility] Atorvastatin Calcium (Lipitor*) 80 mg PO 1700 [facility] Finasteride (Proscar Tab*) 5 mg PO DAILY [facility] Furosemide (Lasix Tab*) 40 mg PO DAILY [facility] Guaifenesin/Dextromethorphan (Robitussin Dm*) 10 ml PO QID [facility] Heparin Sodium (Porcine) (Heparin Vial(*)) 5,000 units SUBCUT Q8HR [facility] Hydroxyzine HCl (Atarax Tab*) 25 mg PO BEDTIME PRN PRN Reason: ANXIETY Calcium Gluconate 1 gm/ Sodium (Chloride) 110 mls @ 110 mls/hr IVPB ED ONCE ONE Stop: 04/03/17 15:12 Last Admin: 04/03/17 14:35 Dose: 110 mls/hr Metoprolol Tartrate (Lopressor Tab*) 12.5 mg PO BID [facility] Nicotine (Nicotine Patch 21 Mg/24 Hr*) 1 patch TRANSDERM DAILY@0800 [facility] Pantoprazole Sodium (Protonix Tab (Nf)) 40 mg PO DAILY [facility] Tamsulosin HCl (Flomax Cap*) 0.4 mg PO DAILY [facility] Vital Signs 04/03/17 04/03/17 04/03/17 12:25 12:47 13:00 Temperature 96.5 F Pulse Rate 59 72 58 Respiratory 20 23 24 Rate Blood Pressure 171/75 (mmHg) O2 Sat by Pulse 99 98 98 Oximetry 04/03/17 04/03/17 04/03/17 13:29 14:00 15:01 Temperature Pulse Rate 57 49 Respiratory 17 19 Rate Blood Pressure 182/85 (mmHg) O2 Sat by Pulse 99 100 100 Oximetry Oxygen Devices in Use Now: Nasal Cannula Appearance: Alert, partly up on ED stretcher. In good spirits. Looks comfortable. Eyes: No Scleral Icterus Ears/Nose/Mouth/Throat: Clear Oropharnyx, Mucous Membranes Moist Neck: NL Appearance and Movements; NL JVP, No Thyroid Enlargement, Masses Respiratory: Symmetrical Chest Expansion and Respiratory Effort, Clear to Auscultation, Clear to Percussion Cardiovascular: NL Sounds; No Murmurs; No JVD, RRR, No Edema, - - marked tenderness anterior chest reproduces his pain Abdominal: NL Sounds; No Tenderness; No Distention, No Hepatosplenomegaly, - Extremities: No Edema, No Clubbing, Cyanosis, - Skin: No Rash or Ulcers, No Nodules or Sclerosis, - Neurological: Alert and Oriented x 3, NL Sensation Result Diagrams: 04/03/17 13:21 04/03/17 13:21 Assess/Plan/Problems-Billing Assessment: - Patient Problems (1) Chest pain Current Visit: Yes Status: Acute Code(s): R07.9 - CHEST PAIN, UNSPECIFIED SNOMED Code(s): 34915623 Comment: Clinically chest wall pain. He had a strong coughing spell during my visit which caused the same pain. Guaifenesin/dex ordered QID. Echo, repeat troponin pending. (2) CKD (chronic kidney disease) Current Visit: Yes Status: Acute Code(s): N18.9 - CHRONIC KIDNEY DISEASE, UNSPECIFIED SNOMED Code(s): 602479975 Comment: With hyperkalemia. He drank 30 gm Kayexalate in the ED. BMP in a few hrs. ICU monitoring. Nutrition consult requested for renal diet. BMP . (3) CAD (coronary artery disease) Current Visit: No Status: Acute Code(s): I25.10 - ATHSCL HEART DISEASE OF [place] CORONARY ARTERY W/O ANG PCTRS SNOMED Code(s): 61520500 Comment: S/P AVR and CABG. Continue ASA, BB. Change to high-dose atorvastatin. (4) Tobacco abuse Current Visit: Yes Status: Acute Code(s): Z72.0 - TOBACCO USE SNOMED Code( s): 864804793 Comment: Pt advised to quit smoking and avoid second hand smoke. 21 mg nicotine patch ordered. (5) Diabetes Current Visit: No Status: Chronic Priority: Low Code(s): E11.9 - TYPE 2 DIABETES MELLITUS WITHOUT COMPLICATIONS SNOMED Code(s): 23308830 Comment: FS glucose tid with Lispro coverage ordered. Pt states he is planning on making an appt to see Dr. Mancera.
[2017-04-03] MEDS ORDERED: Dextrose 50% Syringe 50 ML* 25 GM/50 ML SYRINGE IV PUSH PRN (15:19)
[2017-04-03 15:26] LABS: Uric Acid 8.8 mg/dL (4.4-7.6)
[2017-04-03] MEDS: Nicotine PATCH 21 MG/24 HR* PATCH TRANSDERM SCH (16:18)
[2017-04-03] MEDS: GuaiFENesin DM* 5 ML UDC PO SCH ×2 (16:21→20:39)
[2017-04-03] MEDS ORDERED: Insulin LISPRO* 1 UNITS UNIT SUBCUT SCH (17:00)
[2017-04-03] MEDS ORDERED: Atorvastatin* 80 MG TAB PO SCH (17:00)
--- NOTE | 2017-04-03 17:51 | ECHO ---
Patient: BHAVNA MANSFIELD [facility] Rec#: [id number] : 1940 Date: 04/03/2017 Age: 76y Height: 170.18 cm / 67.0 in Weight: 76.66 kg / 169.0 lbs Sex: M BSA: 1.88 Room#: [facility] Admit Date#: 04/03/2017 Type: Inpatient Referring: Silverio Tello MD Reading: Emily Domínguez MD Twister Frame Tender: Danielle Martinez RDCS CC: Romina Bolden MD Transthoracic Echocardiogram Indication: CP/ hyperkalemia BP: 171/75 HR: 52 Rhythm: Bradycardia Findings History: S/P AV replacement(porcine) 2015,DM,HTN,CHF,CKD,TIA,frmer smoker. Technical Comments: The study quality is good. Completed at 1616. Left Ventricle: The left ventricular chamber size is normal. Mild to moderate concentric left ventricular hypertrophy is observed. The estimated ejection fraction is 55-60%. Post surgical hypokinesis of the interventricular septum is observed consistent with valve replacement. Abnormal left ventricular diastolic function is observed. Left Atrium: The left atrium is moderately dilated. Right Ventricle: The right ventricular cavity size is normal. The right ventricular global systolic function is normal. The septum has abnormal paradoxical motion consistent with post-operative pressure. Right Atrium: The right atrial cavity size is normal. Aortic Valve: The highest aortic valve velocity was obtained with the standard probe from the A5C view. A porcine bio-prosthetic aortic valve is present. The prosthetic aortic valve leaflets are normal. The bio-prosthetic aortic valve appears to be functioning normally. Mitral Valve: The mitral valve leaflets are mildly thickened. There is mild to moderate mitral regurgitation. There is no evidence of mitral stenosis. Tricuspid Valve: The tricuspid valve leaflets are normal. There is mild tricuspid regurgitation. There is evidence of moderate pulmonary hypertension. There is no tricuspid stenosis. Pericardium: The pericardium appears normal. Aorta: There is no dilatation of the ascending aorta. There is no dilatation of the aortic arch. There is no dilation of the aortic root. Pulmonary Artery: The main pulmonary artery appears normal. Venous: The inferior vena cava appears normal in size. There is a greater than 50% respiratory change in the inferior vena cava dimension. Summary: There are changes noted when compared to the previous study done on 09/09/2015, now there is moderate PHTN instead of unable to estimate.TR is mild instead of trace then. Conclusions The left ventricular chamber size is normal. Mild to moderate concentric left ventricular hypertrophy is observed. The estimated ejection fraction is 55-60%. Post surgical hypokinesis of the interventricular septum is observed consistent with valve replacement. The left atrium is moderately dilated. A porcine bio-prosthetic aortic valve is present. The bio-prosthetic aortic valve appears to be functioning normally. There is mild to moderate mitral regurgitation. There is mild tricuspid regurgitation. There is evidence of moderate pulmonary hypertension. There are changes noted when compared to the previous study done on 09/09/2015, now there is moderate PHTN instead of unable to estimate.TR is mild instead of trace then. Measurements Name Value Normal Range RVIDd (AP) 2D 2.8 cm (0.9 - 2.6) RVDdMajor (2D) 4 cm (2.2 - 4.4) RAd ISD 4CH 4.6 cm (3.4 - 4.9) RA (A4C)W 4.4 cm (2.9 - 4.6) IVSd (2D) 1.6 cm (0.6 - 1) LVPWd (2D) 1.1 cm (0.6 - 1) LVIDd (2D) 3.8 cm (3.6 - 5.4) LVIDs (2D) 2.1 cm - LV FS (2D) 45 % (25 - 45) Aortic Annulus 1.6 cm (1.4 - 2.6) Ao root diameter (2D) 3.1 cm (2.1 - 3.5) Ascending Ao 2.8 cm (2.1 - 3.4) Aortic arch 2.3 cm (1.8 - 3.4) Descending Ao 0.9 cm - LA dimension (AP) 2D 4.3 cm (2.3 - 3.8) LAd ISD 4CH 5.1 cm (2.9 - 5.3) LA ISD 4CH W 3.8 cm (2.5 - 4.5) Name Value Normal Range LA ESV SP 4CH (A/L) 68 ml - LA ESV SP 2CH (A/L) 50 ml - LA ESV BP (A/L) 63 ml - LA ESV BP (A/L) index 33.63 ml/m2 - LA ESV SP 4CH (MOD) 61 ml - LA ESV SP 2CH (MOD) 47 ml - Name Value Normal Range MV E-wave Vmax 1 m/sec - MV deceleration time 275 msec - MV A-wave Vmax 1.3 m/sec - MV E:A ratio 0.81 ratio - LV septal e' Vmax 0.05 m/sec - LV lateral e' Vmax 0.1 m/sec - LV E:e' septal ratio 20 ratio - LV E:e' lateral ratio 10 ratio - Name Value Normal Range AV Vmax 3.1 m/sec - AV VTI 69.4 cm - AV peak gradient 37.71 mmHg - AV mean gradient 16.76 mmHg - LVOT diameter 1.7 cm - LVOT Vmax 1.7 m/sec - LVOT VTI 47.15 cm - LVOT peak gradient 10.94 mmHg - LVOT mean gradient 4.5 mmHg - KENDALL (continuity Vmax) 1.2 cm2 - K[place]ALL (continuity VTI) 1.5 cm2 - Name Value Normal Range TR Vmax 3.4 m/sec - TR peak gradient 45 mmHg - RAP 3 mmHg - RVSP 48 mmHg - IVC diameter 1.9 cm - Name Value Normal Range PV Vmax 1 m/sec - PV peak gradient 4.28 mmHg -
[2017-04-03 18:07] LABS: BUN/Creatinine Ratio 15.8 (8-20); EGFR African American 28.9 (>60); EGFR Non-African American 22.4 (>60)
[2017-04-03 18:10] LABS: Troponin I 0.02 ng/mL (<0.04)
[2017-04-03 18:14] LABS: Potassium 6.5 mmol/L (3.5-5.0)
[2017-04-03] MEDS: Metoprolol Tartrate TAB* 25 MG PO SCH (20:40)
[2017-04-03] MEDS ORDERED: Nicotine Patch Removal NOTE PATCH OFF SCH (21:00)
[2017-04-03] MEDS ORDERED: Insulin LISPRO* 1 UNITS UNIT SUBCUT ONE (21:03)
[2017-04-03] MEDS: Insulin LISPRO* 1 UNITS UNIT SUBCUT SCH (21:04)
[2017-04-03] MEDS: Heparin VIAL(*) 5000 UNITS/ML VIAL (FIVE THOUSAND) SUBCUT SCH (22:16)
[2017-04-03 22:24] LABS: Potassium 5.6 mmol/L (3.5-5.0)
[2017-04-04 05:28] LABS: BUN/Creatinine Ratio 16.4 (8-20); Calcium 8.4 mg/dL (8.6-10.3); EGFR African American 28.6 (>60); EGFR Non-African American 22.3 (>60)
[2017-04-04 05:30] LABS: Potassium 5.7 mmol/L (3.5-5.0)
[2017-04-04] MEDS: Heparin VIAL(*) 5000 UNITS/ML VIAL (FIVE THOUSAND) SUBCUT SCH (05:59)
[2017-04-04] MEDS: Insulin LISPRO* 1 UNITS UNIT SUBCUT SCH (07:35)
[2017-04-04] MEDS ORDERED: Finasteride TAB* 5 MG PO SCH (09:00)
[2017-04-04] MEDS ORDERED: Omeprazole CAP* 20 MG PO SCH (09:00)
[2017-04-04] MEDS ORDERED: Furosemide TAB* 40 MG PO SCH (09:00)
[2017-04-04] MEDS ORDERED: Tamsulosin CAP* 0.4 MG PO SCH (09:00)
[2017-04-04] MEDS ORDERED: Aspirin EC Low Dose* 81 MG TAB.EC PO SCH (09:00)
[2017-04-04] MEDS: Nicotine PATCH 21 MG/24 HR* PATCH TRANSDERM SCH (09:19)
[2017-04-04] MEDS: Metoprolol Tartrate TAB* 25 MG PO SCH (09:20)
[2017-04-04] MEDS: GuaiFENesin DM* 5 ML UDC PO SCH (09:20)
[2017-04-04] MEDS ORDERED: Sodium Polystyrene ORAL.SOL* 15 GM/60 ML BTL PO ONE (11:34)
--- NOTE | 2017-04-04 11:51 | PN ---
Progress Note - Progress Note Date of Service: 04/04/17 Note: Time spent on discharge 55 minutes.
[2017-04-04] MEDS ORDERED: Furosemide TAB* 20 MG ONE (11:52)
[2017-04-04 12:31] VITALS: BP 127/62
--- NOTE | 2017-04-05 00:17 | DS ---
CC: Dr. Bolden DISCHARGE SUMMARY: DATE OF ADMISSION: 04/03/17 DATE OF DISCHARGE: 04/04/17 HISTORY OF PRESENT ILLNESS: This 76-year-old man came to the emergency room because of chest pain. He had been to the urgent care center because of swollen and painful index finger. They did blood test and later another day they called him to go to the emergency room because of his high potassium , I believe it was 6.3. He was given Kayexalate and the potassium fell below 6 and he was discharge d home. Today, he actually came in because of chest pain starting about 7:30 in the morning, it las jeannie all day. On examination in the emergency room, he had marked chest wall tenderness. He had mike n when he had a coughing spell. He clearly has chest wall pain. He had serial troponin levels and an echocardiogram which are really unremarkable. He does have a porcine aortic valve replacement. The patient was given 30 g of Kayexalate in the emergency room. His potassium level initially was 7 .2, it was 5.7 on the morning of discharge. Following that, he received another 15 g of Kayexalate. He was given supply to take home for a month's supply. He can come back to the hospital pharmacy for refills, as many of the chain pharmacies do not carry Kayexalate solution at all, but only have the powder. He will take Kayexalate 15 g every Thursday, Thursday and Thursday. He will have a BMP on Thursday. He was given instruction by the deli cutter slicer and a renal diet. FINAL DIAGNOSES: 1. Stage 4 kidney disease with hyperkalemia. 2. Chest wall pain. 3. Coronary artery disease. 4. Tobacco abuse. 5. Diabetes. DISCHARGE MEDICATIONS: 1. Atorvastatin 80 mg daily at 5 p.m. 2. Nicotine patch 21 mg daily. 3. Kayexalate oral solution 15 g every Thursday, Thursday, and Thursday. 4. Furosemide 20 mg daily. 5. Docusate 100 mg daily p.r.n. 6. Finasteride 5 mg daily. 7. Aspirin 81 mg daily. 8. Pantoprazole 40 mg daily. 9. Tamsulosin 0.4 mg daily. 10. Hectorol 0.5 mcg daily. 11. Hydroxyzine 25 mg h.s. p.r.n. 12. Enablex 15 mg daily. 13. Metoprolol tartrate 12.5 mg b.i.d. 14. Tizanidine as prescribed. [id number]/[facility] #: [id number]
[2017-04-05] MEDS ORDERED: Furosemide TAB* 20 MG PO SCH (09:00)
== END 2017-04-04 12:25 | disposition home or self-care (01) ==
LOC: ED 12:24 → ICU 14:19 → INTOOBSV 14:19
PROVIDERS: ADMIT Internal Medicine; ATTEND Internal Medicine
DX: E87.5 Hyperkalemia (principal); N18.4 Chronic kidney disease, stage 4 (severe); R07.89 Other chest pain; I25.10 Atherosclerotic heart disease of native coronary artery without angina pectoris; R00.1 Bradycardia, unspecified; E11.9 Type 2 diabetes mellitus without complications; Z79.84 Long term (current) use of oral hypoglycemic drugs; Z72.0 Tobacco use; Z95.2 Presence of prosthetic heart valve; R10.10 Upper abdominal pain, unspecified; R05 Cough; R35.0 Frequency of micturition
CPT/HCPCS: 36415; 71010; 80048; 80051; 80053; 84484; 84550; 85025; 87641; 93005; 93306; 99285; A9270-GY; G0378; J0610; J1644

== ENCOUNTER 2017-05-10 20:44 | Emergency (ER) | payer BC ==
[2017-05-10 20:52] VITALS: BP 131/59
--- NOTE | 2017-05-10 21:00 | UC ---
Lower Extremity/Ankle HPI - HPI Summary HPI Summary: Pt presents with right great toe pain. Pain started this morning. He does have a history of gout and cellulitis and is very worried that this is cellulitis. He is diabetic, but denies trouble with his kidneys or CKD. He denies injury to his toe. He has not taken anything for pain. - History of Current Complaint Chief Complaint: UCLowerExtremity Stated Complaint: INFLAMED TOE Time Seen by Provider: 05/10/17 21:00 Hx Obtained From: Patient Onset/Duration: Sudden Onset Severity Initially: Moderate Severity Currently: Severe Pain Intensity: 8 Pain Scale Used: 0-10 Numeric Aggravating Factor(s): Standing, Ambulation - Allergies/Home Medications Allergies/Adverse Reactions: Allergies Allergy/AdvReac Type Severity Reaction Status Date / Time Cephalexin [From Keflex] AdvReac Severe Nausea And Verified 03/31/17 20:46 Vomiting PMH/Surg Hx/FS Hx/Imm Hx Previously Healthy: Yes Endocrine History: Diabetes, Dyslipidemia Cardiovascular History: Cardiac Disease, Hypertension Respiratory History: COPD Other History Of: Anticoagulant Therapy - Surgical History Surgical History: Yes Surgery Procedure, Year, and Place: ABDOMINAL HERNIA REPAIR, skull fracture in the . Aortic valve replacement September 2014 - Family History Known Family History: Positive: Cardiac Disease, Hypertension Negative: Diabetes - Social History Occupation: Employed Full-time Lives: With Family Alcohol Use: Rare Alcohol Amount: SOCIAL Substance Use Type: None Smoking Status (MU): Light Every Day Tobacco Smoker Type: Cigars Amount Used/How Often: 1-2 cigarillos per day Length of Time of Smoking/Using Tobacco: 57 years Have You Smoked in the Last Year: Yes When Did the Patient Quit Smoking/Using Tobacco: 2014 Household Exposure Type: Cigarettes - Immunization History Most Recent Influenza Vaccination: 2014 Most Recent Tetanus Shot: 2013 Most Recent Pneumonia Vaccination: 2013 Review of Systems Constitutional: Negative Skin: Negative Respiratory: Negative Cardiovascular: Negative Gastrointestinal: Negative Musculoskeletal: Other: - TTP right great toe Neurological: Negative Psychological: Negative All Other Systems Reviewed And Are Negative: Yes Physical Exam Triage Information Reviewed: Yes Appearance: Well-Appearing, Well-Nourished Vital Signs: Initial Vital Signs Temp 97.5 F 05/10/17 20:48 Pulse 66 05/10/17 20:48 Resp 18 05/10/17 20:48 BP 131/59 05/10/17 20:48 Pulse Ox 100 05/10/17 20:48 Vital Signs Reviewed: Yes Respiratory: Positive: Chest non-tender, Lungs clear, Normal breath sounds, No respiratory distress, No accessory muscle use Cardiovascular: Positive: RRR, No Murmur, Pulses Normal Musculoskeletal: Positive: Strength Intact, ROM Intact, No Edema, Other: - TTP over right great toe PIP and MCP. Neurological: Positive: Alert Psychological: Positive: Age Appropriate Behavior Skin: Positive: Other - No erythema, edema, or open sores on right foot or toe. Lower Extremity Course/Dx - Course Course Of Treatment: XR today negative for gout, AGE-APPROPRIATE DEGENERATIVE CHANGES. Inj of toradol 30mg. Tylenol alternating with ibuprofen for pain - no longer than 5 days in total of ibuprofen. - Differential Dx/Diagnosis Differential Diagnosis/HQI/PQRI: Cellulitis, Contusion, Fracture (Closed), Gout , Sprain, Strain Provider Diagnoses: Right great toe pain Discharge - Discharge Plan Condition: Stable Disposition: HOME Patient Education Materials: Osteoarthritis (ED), Gout (ED) Forms: *Work Release Referrals: Romina Bolden MD [Primary Care Provider] - Additional Instructions: 1) May take Ibuprofen OTC a total of 600mg every 6-8 hours as needed for pain, but do not take longer than 5 times. Alternate with tylenol daily. 2) If your pain increases or you develop redness or increased swelling - please call your PCP or go to the ED. If you develop a fever, SOB, chest pain, new or worsening symptoms - please call your PCP or go to the ED.
--- NOTE | 2017-05-10 21:49 | RAD ---
INDICATION: Inflammation and pain to the right great toe COMPARISON: Similar x-ray obtained March 02, 2016 TECHNIQUE: 3 views of the right foot were obtained. FINDINGS: The adequately corticated bones are properly aligned. Age appropriate degenerative change includes narrowing of the interphalangeal joints and mild sclerotic change at the great toe metatarsophalangeal joint. There is no destructive arthropathy associated with gout. No fracture, dislocation or focal bony abnormality is seen. IMPRESSION: AGE-APPROPRIATE DEGENERATIVE CHANGES DESCRIBED ABOVE. If the patient's symptoms persist, follow-up imaging is recommended.
[2017-05-10] MEDS ORDERED: Ketorolac INJ* 30 MG/ML 1 ML VIAL IM ONE (22:06)
== END 2017-05-10 22:30 | disposition home or self-care (01) ==
LOC: UCEAST 20:44
DX: M19.071 Primary osteoarthritis, right ankle and foot (principal); D11.9 Benign neoplasm of major salivary gland, unspecified
CPT/HCPCS: 96372; 99211; G0463; J1885

== ENCOUNTER 2017-05-13 15:05 | Emergency (ER) | payer BC ==
--- NOTE | 2017-05-13 16:26 | RAD ---
INDICATION: Right great toe injury COMPARISON: May 10, 2017 TECHNIQUE: AP, lateral, and oblique views were obtained. FINDINGS: There is no acute bony change. There is a small erosive change about the distal aspect of the proximal phalanx which may reflect gouty arthritis. There is interphalangeal osteophyte change. There is injury to the nailbed. IMPRESSION: NO ACUTE FRACTURE. 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
[2017-05-13] MEDS ORDERED: Dexamethasone TAB* 4 MG PO ONE (17:19)
[2017-05-13 18:00] VITALS: BP 146/83
--- NOTE | 2017-05-13 18:35 | UC ---
Lupillo Núñez Tiffany, scribed for Brendan Pringle MD on 05/13/17 at 1550 . Lower Extremity/Ankle HPI - HPI Summary HPI Summary: This patient is a 77 year old F presenting to [facility] with a chief complaint of right toe pain s/p a water bottle falling on his right foot yesterday. The patient rates the pain 8/10 in severity. Symptoms aggravated by nothing. Symptoms alleviated by nothing. Patient reports difficulty walking. He denies fever. He was at [facility] two days ago for the same right toe pain and was given a Toroidal shot then. HE requests another Toroidal shot today. - History of Current Complaint Chief Complaint: UCLowerExtremity Stated Complaint: TOE PAIN Hx Obtained From: Patient Onset/Duration: Lasting Days - Yesterday, Still Present Aggravating Factor(s): Nothing Alleviating Factor(s): Nothing - Allergies/Home Medications Allergies/Adverse Reactions: Allergies Allergy/AdvReac Type Severity Reaction Status Date / Time Cephalexin [From Keflex] AdvReac Severe Nausea And Verified 05/13/17 15:15 Vomiting Home Medications: Home Medications Pravastatin Sodium [Pravachol] 20 mg PO DAILY 05/13/17 [History Confirmed ] PMH/Surg Hx/FS Hx/Imm Hx Previously Healthy: No Endocrine History: Diabetes Other History Of: Anticoagulant Therapy - Surgical History Surgical History: Yes Surgery Procedure, Year, and Place: ABDOMINAL HERNIA REPAIR, skull fracture in the . Aortic valve replacement September 2014 - Family History Known Family History: Positive: Cardiac Disease, Hypertension Negative: Diabetes - Social History Alcohol Use: None Alcohol Amount: SOCIAL Substance Use Type: None Substance Use Comment - Amount & Last Used: pt confused; current substance use is unknown, but no known history Smoking Status (MU): Light Every Day Tobacco Smoker Type: Cigars Amount Used/How Often: 1-2 cigarillos per day Length of Time of Smoking/Using Tobacco: 57 years Have You Smoked in the Last Year: Yes When Did the Patient Quit Smoking/Using Tobacco: 2014 Household Exposure Type: Cigarettes - Immunization History Most Recent Influenza Vaccination: fall 2016 Most Recent Tetanus Shot: 2013 Most Recent Pneumonia Vaccination: 2013 Review of Systems Constitutional: Negative - Fever Musculoskeletal: Other: - Right toe pain All Other Systems Reviewed And Are Negative: Yes Physical Exam Triage Information Reviewed: Yes Vital Signs: Initial Vital Signs Temp 96.7 F 05/13/17 15:10 Pulse 79 05/13/17 15:10 Resp 18 05/13/17 15:10 BP 142/65 05/13/17 15:10 Pulse Ox 100 05/13/17 15:10 Vital Signs Reviewed: Yes - Additional Comments General: well-appearing, no pain distress Skin: warm, color reflects adequate perfusion, dry Head: normal Eyes: EOMI, WILLY ENT: normal Neck: supple, nontender Respiratory: CTA, breath sounds present Cardiovascular: RRR Abdomen: soft, nontender Bowel: present Musculoskeletal: Tender at first MTP on right foot, first MTP on right foot is tender to palpation, mild ecchymosis on first MTP on right foot, no couleur on first MTP on right foot, first MTP on right foot does not feel hot to touch, no obvious skin break on first MTP on right foot, athlete's foot on right foot Neurological: normal, sensory/motor intact, A&O x3 Psychological: affect/mood appropriate Diagnostics - Radiology Toe XRay Radiology Interpretation Completed By: Radiologist - NO ACUTE FRACTURE. 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 ED physician has reviewed this report and agrees Lower Extremity Course/Dx - Course Course Of Treatment: BP noted and advised to follow up with PCP. Allergies noted. Medications reviewed. MOST PROBABLY GOUT THAT HAS BEEN EXACERBATED BY TRAUMA. NO EVIDENCE OF INFECTION AT THIS TIME. RX DECADRON 4MG PO QD FOR 4 MORE DAYS. DUE TO KIDNEY INSUFFICIENCY, NO NSAIDS OR COLCHICINE. PATIENT WILL NEED TO KEEP TRACK OF BLOOD SUGARS. DISCUSSED IF HIS CONDITION WORSENS, HE WILL NEED TO GET SEEN IN THE ED. BLOOD WORK DRAWN CBC, CRP, CMP, URIC ACID. - Differential Dx/Diagnosis Provider Diagnoses: RIGHT GREAT TOE AND FIRST MTP PAIN Discharge - Discharge Plan Condition: Stable Disposition: HOME Prescriptions: Dexamethasone TAB* [Decadron TAB*] 4 mg PO DAILY #4 tab Patient Education Materials: Swollen Joint (ED) Referrals: Romina Bolden MD [Primary Care Provider] - Additional Instructions: FOLLOW UP WITH YOUR DOCTOR. THE PAIN IN YOUR FOOT IS MOST PROBABLY GOUT THAT HAS BEEN EXACERBATED BY A CONTUSION FROM RECENT TRAUMA. THE DECADRON IS A STEROID. WILL INCREASE YOUR BLOOD SUGAR. CHECK YOUR BLOOD SUGAR. RETURN TO THE EMERGENCY DEPARTMENT FOR ANY WORSENING OF YOUR CONDITION; PAIN, FEVER, SIGNS OF INFECTION OR QUESTIONS OR CONCERNS. The documentation as recorded by the Lupillo camargo Tiffany accurately reflects the service I personally performed and the decisions made by me, Brendan Pringle MD.
[2017-05-13 18:41] LABS: Hematocrit 34 % (42-52); Hemoglobin 11.2 g/dl (14.0-18.0); Mean Corpuscular HGB Conc 33 g/dl (31-36); Mean Corpuscular Hemoglobin 30 pg (27-31); Mean Corpuscular Volume 91 fL (80-94); Mean Platelet Volume 8 um3 (7.4-10.4); Red Blood Count 3.71 10^6/ul (4.0-5.4); Red Cell Distribution Width 17 % (10.5-15); White Blood Count 7.4 10^3/ul (3.5-10.8)
[2017-05-13 18:56] LABS: Albumin 3.9 g/dL (3.2-5.2); BUN/Creatinine Ratio 17.3 (8-20); C Reactive Protein 5.89 mg/L (< 5.00); Calcium 8.3 mg/dL (8.6-10.3); EGFR African American 36.6 (>60); EGFR Non-African American 28.4 (>60); Globulin 2.5 g/dL (2-4); Potassium 4.4 mmol/L (3.5-5.0); Total Bilirubin 0.5 mg/dL (0.2-1.0); Total Protein 6.4 g/dL (6.4-8.9)
[2017-05-13 22:39] LABS: Uric Acid 9.5 mg/dL (4.4-7.6)
--- NOTE | 2017-05-14 15:03 | UC ---
Progress - Progress Note Progress Note: Please call patient and inform him that his uric acid level is high and most likely his pain is related to a gouty attack. Follow up with primary care provider.
== END 2017-05-13 17:40 | disposition home or self-care (01) ==
LOC: UCEAST 15:05
DX: M79.674 Pain in right toe(s) (principal); M25.571 Pain in right ankle and joints of right foot; Z72.0 Tobacco use
CPT/HCPCS: 36415; 80053; 84550; 85025; 86140; 99212; G0463; J8540

== ENCOUNTER 2017-11-13 19:06 | Emergency (ER) | payer BC ==
[2017-11-13 19:33] VITALS: BP 111/88
--- NOTE | 2017-11-13 20:30 | RAD ---
INDICATION: Shortness of breath, cough. Cardiac disease. COPD. COMPARISON: April 03, 2017 TECHNIQUE: Dual energy PA and routine lateral views of the chest were obtained. REPORT: Elevated lung volumes with mild prominence of interstitial markings and upper lung zone rarefaction. Airspace consolidation at the RIGHT lower lung zone without volume loss concerning for pneumonia. Negative for pleural effusion or pneumothorax. Prosthetic aortic valve. Median sternotomy wires. Mild cardiomegaly. Unremarkable central pulmonary vasculature. IMPRESSION: The constellation of findings is most consistent with RIGHT middle lobe pneumonia superimposed on chronic obstructive pulmonary disease.
--- NOTE | 2017-11-13 20:45 | UC ---
Respiratory Complaint HPI - HPI Summary HPI Summary: 77 yo BM h/o COPD, asthma p/w severe cough with sputum, and sneezing fits x 5 days, not getting better, denies f/c did not try any OTC meds - History of Current Complaint Chief Complaint: UCRespiratory Stated Complaint: FEVER,COLD,COUGH Time Seen by Provider: 11/13/17 19:54 Hx Obtained From: Patient Onset/Duration: Lasting Days Severity Initially: Moderate Severity Currently: Severe Pain Intensity: 7 Character: Cough: Productive Aggravating Factors: Nothing Alleviating Factors: Nothing Associated Signs And Symptoms: Positive: Dyspnea, Wheezing Related History: Seasonal Allergies - Allergies/Home Medications Allergies/Adverse Reactions: Allergies Allergy/AdvReac Type Severity Reaction Status Date / Time cephalexin [From Keflex] Allergy N/V Verified 11/13/17 19:33 Home Medications: Home Medications Albuterol HFA INHALER* [Ventolin HFA Inhaler*] 11/13/17 [History Confirmed ] Ascorbic Acid TAB* [Vitamin C TAB*] 1,000 mg PO DAILY 11/13/17 [History Confirmed 11/13/17] Atorvastatin* [Lipitor 80 MG*] 1 tab PO DAILY 11/13/17 [History Confirmed ] Darifenacin Hydrobromide [Darifenacin ER] 15 mg PO 11/13/17 [History] Mirabegron (NF) [Myrbetriq (NF)] 11/13/17 [History Confirmed 11/13/17] Nicotine PATCH 21 MG/24 HR* 11/13/17 [History] Sildenafil Citrate [Viagra] 11/13/17 [History] PMH/Surg Hx/FS Hx/Imm Hx Previously Healthy: No Cardiovascular History: Cardiac Disease, Hypertension Respiratory History: COPD, Asthma Other History Of: Anticoagulant Therapy - Surgical History Surgical History: Yes Surgery Procedure, Year, and Place: ABDOMINAL HERNIA REPAIR, skull fracture in the . Aortic valve replacement September 2014 - Family History Known Family History: Positive: Cardiac Disease, Hypertension Negative: Diabetes - Social History Alcohol Use: None Alcohol Amount: SOCIAL Substance Use Type: None Substance Use Comment - Amount & Last Used: pt confused; current substance use is unknown, but no known history Smoking Status (MU): Current Every Day Smoker Type: Cigars Amount Used/How Often: 2-3 CIGARS/DAY Length of Time of Smoking/Using Tobacco: 57 years Have You Smoked in the Last Year: Yes When Did the Patient Quit Smoking/Using Tobacco: June. 2014 Household Exposure Type: Cigarettes - Immunization History Most Recent Influenza Vaccination: fall 2016 Most Recent Tetanus Shot: 2013 Most Recent Pneumonia Vaccination: 2013 Review of Systems Constitutional: Negative Skin: Negative Eyes: Negative ENT: Negative Respiratory: Shortness Of Breath, Cough, Other - sneezing Cardiovascular: Negative Gastrointestinal: Negative Genitourinary: Negative Motor: Negative Neurovascular: Negative Musculoskeletal: Negative Neurological: Negative Psychological: Negative All Other Systems Reviewed And Are Negative: Yes Physical Exam Triage Information Reviewed: Yes Appearance: Ill-Appearing, Obese Vital Signs: Initial Vital Signs Temp 36.7 C 11/13/17 19:29 Pulse 68 11/13/17 19:29 Resp 20 11/13/17 19:29 BP 111/88 11/13/17 19:29 Pulse Ox 96 11/13/17 19:29 Eye Exam: Normal ENT Exam: Normal Dental Exam: Normal Neck exam: Normal Neck: Positive: 1 Respiratory: Positive: Decreased breath sounds, Crackles Cardiovascular Exam: Normal Abdominal Exam: Normal Musculoskeletal Exam: Normal Neurological Exam: Normal Psychological Exam: Normal Skin Exam: Normal UC Diagnostic Evaluation - Laboratory O2 Sat by Pulse Oximetry: 96 Respiratory Course/Dx - Course Course Of Treatment: CXR- RML PNA in setting of COPD- Tx with ceftin 500 BID x 7days - Differential Dx/Diagnosis Provider Diagnoses: RML PNA Discharge - Sign-Out/Discharge Documenting (check all that apply): Discharge/Admit/Transfer - Discharge Plan Condition: Stable Disposition: HOME Patient Education Materials: Community Acquired Pneumonia (ED) Referrals: Romina Bolden MD [Primary Care Provider] - - Billing Disposition and Condition Condition: STABLE Disposition: HOME
[2017-11-13] MEDS ORDERED: GuaiFENesin DM* 5 ML UDC PO ONE (20:59)
[2017-11-13] MEDS ORDERED: Levofloxacin TAB* 250 MG PO ONE (20:59)
== END 2017-11-13 21:17 | disposition home or self-care (01) ==
LOC: UCEAST 19:06
DX: J18.9 Pneumonia, unspecified organism (principal); I10 Essential (primary) hypertension; Z88.1 Allergy status to other antibiotic agents; Z79.82 Long term (current) use of aspirin; F17.210 Nicotine dependence, cigarettes, uncomplicated
CPT/HCPCS: 71046; 99212; A9270-GY; G0463

== ENCOUNTER 2017-11-16 11:48 | Emergency (ER) | payer BC ==
[2017-11-16 12:02] VITALS: BP 122/69
--- NOTE | 2017-11-16 12:45 | RAD ---
HISTORY: Worsening shortness of breath, pneumonia COMPARISONS: November 13, 2017 VIEWS: 4: Frontal dual-energy and lateral views of the chest. FINDINGS: CARDIOMEDIASTINAL SILHOUETTE: The cardiomediastinal silhouette is normal. AIDA: The aida are normal. PLEURA: The costophrenic angles are sharp. No pleural abnormalities are noted. A prosthetic heart valve is noted. LUNG PARENCHYMA: There is hyperinflation. There is patchy alveolar opacification of the right middle lobe, improved from the previous examination. ABDOMEN: The upper abdomen is clear. There is no subphrenic gas. BONES AND SOFT TISSUES: The patient is status post median sternotomy. OTHER: None. IMPRESSION: PERSISTENT, BUT IMPROVED, AIRSPACE DISEASE OF THE RIGHT MIDDLE LOBE. RECOMMEND FOLLOW-UP UNTIL RESOLUTION TO EXCLUDE UNDERLYING PULMONARY PARENCHYMAL PATHOLOGY.
--- NOTE | 2017-11-16 13:23 | UC ---
Mikal Núñez Gabriel, scribed for Brendan Pringle MD on 11/16/17 at 1208 . Respiratory Complaint HPI - HPI Summary HPI Summary: This patient is a 77 year old M presenting to [facility] c/o PNA exacerbation. Pt was seen 3 days ago dx with PNA and claims it has been getting worse with abx not better. He would like another X-ray to see if his lungs are still problematic. The patient rates the pain 0/10 in severity. Patient reports cough , fatigue, nasal congestion, decreased appetite, and dry mucus membranes. - History of Current Complaint Chief Complaint: UCRespiratory Stated Complaint: RESP COMPLAINT Time Seen by Provider: 11/16/17 12:05 Hx Obtained From: Patient Onset/Duration: Lasting Days, Still Present Severity Initially: Mild Severity Currently: Moderate Pain Intensity: 0 Pain Scale Used: 0-10 Numeric Character: Cough: Productive Associated Signs And Symptoms: Positive: Nasal Congestion - Allergies/Home Medications Allergies/Adverse Reactions: Allergies Allergy/AdvReac Type Severity Reaction Status Date / Time cephalexin [From Keflex] Allergy N/V Verified 11/16/17 11:52 Home Medications: Home Medications Levofloxacin TAB* [Levaquin 750 MG TAB*] 1 tab PO DAILY 11/16/17 [History Confirmed 11/16/17] PMH/Surg Hx/FS Hx/Imm Hx Cardiovascular History: Cardiac Disease, Hypertension Respiratory History: COPD, Asthma, Pneumonia Other History Of: Anticoagulant Therapy - Surgical History Surgical History: Yes Surgery Procedure, Year, and Place: ABDOMINAL HERNIA REPAIR, skull fracture in the . Aortic valve replacement September 2014 - Family History Known Family History: Positive: Cardiac Disease, Hypertension Negative: Diabetes - Social History Lives: Alone Alcohol Use: None Alcohol Amount: SOCIAL Substance Use Type: None Substance Use Comment - Amount & Last Used: pt confused; current substance use is unknown, but no known history Smoking Status (MU): Light Every Day Tobacco Smoker Type: Cigars Amount Used/How Often: 2-3 CIGARS/DAY Length of Time of Smoking/Using Tobacco: 57 years Have You Smoked in the Last Year: Yes When Did the Patient Quit Smoking/Using Tobacco: 2014 Household Exposure Type: Cigarettes - Immunization History Most Recent Influenza Vaccination: fall 2016 Most Recent Tetanus Shot: 2013 Most Recent Pneumonia Vaccination: 2013 Review of Systems Constitutional: Fatigue, Other - decreased appetite ENT: Sinus Congestion, Other - dry mucus membranes Respiratory: Cough All Other Systems Reviewed And Are Negative: Yes Physical Exam - Summary Physical Exam Summary: General: well-appearing, no pain distress Skin: warm, color reflects adequate perfusion, dry Head: normal Eyes: EOMI, WILLY ENT: normal Neck: supple, nontender Respiratory: Rhonchi bilaterally on expiration Cardiovascular: RRR Abdomen: soft, nontender Bowel: present Musculoskeletal: normal, strength/ROM intact Neurological: sensory/motor intact, A&O x3 Psychological: affect/mood appropriate Triage Information Reviewed: Yes Vital Signs: Initial Vital Signs Temp 98.2 F 11/16/17 11:51 Pulse 65 11/16/17 11:51 Resp 20 11/16/17 11:51 BP 122/69 11/16/17 11:51 Pulse Ox 98 11/16/17 11:51 Vital Signs Reviewed: Yes UC Diagnostic Evaluation - Laboratory O2 Sat by Pulse Oximetry: 98 - Radiology Radiology Interpretation Completed By: Radiologist - PERSISTENT, BUT IMPROVED, AIRSPACE DISEASE OF THE RIGHT MIDDLE LOBE. RECOMMEND FOLLOW-UP. Dr. Pringle has reviewed this report. Respiratory Course/Dx - Course Course Of Treatment: DISCUSSED RESULTS WITH THE PATIENT. VSS. O2 SAT 98%. DISCUSSED USING HIS INHALERS, F/U PMD; GO TO THE EMERGENCY DEPARTMENT FOR WORSENING OF CONDITION. - Differential Dx/Diagnosis Provider Diagnoses: PNEUMONIA Discharge - Sign-Out/Discharge Documenting (check all that apply): Discharge/Admit/Transfer - Discharge Plan Condition: Stable Disposition: HOME Patient Education Materials: Pneumonia (ED) Referrals: Romina Bolden MD [Primary Care Provider] - Additional Instructions: FOLLOW UP WITH YOUR DOCTOR. USE YOUR INHALERS DIRECTED. CONTINUE THE ANTIBIOTIC. NASAL SPRAYS WITH THE STEROID TRIAMCINOLONE, SUCH NASACORT, CAN BE HELPFUL WITH A STUFFED UP NOSE. AVOID NASAL SPRAYS WITH NEOSYNEPHRINE THEY CAN CAUSE THE NASAL CONGESTION TO WORSEN. GO TO THE EMERGENCY DEPARTMENT FOR ANY WORSENING OF YOUR CONDITION OR QUESTIONS OR CONCERNS. - Billing Disposition and Condition Condition: STABLE Disposition: HOME The documentation as recorded by the Mikal camargo Gabriel accurately reflects the service I personally performed and the decisions made by me, Brendan Pringle MD.
[2017-11-16 14:08] LABS: ABS Basophils 0 10^3/ul (0-0.2); ABS Eosinophils 0.2 10^3/ul (0-0.6); ABS Monocytes 0.6 10^3/ul (0-0.8); ABS Neutrophils 3.4 10^3/ul (1.5-7.7); ABS Nucleated RBC 0 10^3/ul; Hematocrit 39 % (42-52); Hemoglobin 12.8 g/dl (14.0-18.0); Lymphocyte % 18.4 % (25-47); Mean Corpuscular HGB Conc 32 g/dl (31-36); Mean Corpuscular Hemoglobin 29 pg (27-31); Mean Corpuscular Volume 90 fL (80-94); Mean Platelet Volume 7.4 um3 (7.4-10.4); Nucleated Red Blood Cells % 0.1; Platelet Count 203 10^3/ul (150-450); Red Blood Count 4.39 10^6/ul (4.0-5.4); Red Cell Distribution Width 17 % (10.5-15); White Blood Count 5.2 10^3/ul (3.5-10.8)
--- NOTE | 2017-11-17 09:03 | UC ---
- Progress Note Progress Note: Reviewed blood work from yesterday as available. K+ 5.1, crp 18.40. Reviewed notes from yesterday. Recommend f/u PCP office today, if not then ED. RN will call PCP and pt. Discharge - Sign-Out/Discharge Documenting (check all that apply): Discharge/Admit/Transfer - Discharge Plan Condition: Stable Disposition: HOME Patient Education Materials: Pneumonia (ED) Referrals: Romina Bolden MD [Primary Care Provider] - Additional Instructions: FOLLOW UP WITH YOUR DOCTOR. USE YOUR INHALERS DIRECTED. CONTINUE THE ANTIBIOTIC. NASAL SPRAYS WITH THE STEROID TRIAMCINOLONE, SUCH NASACORT, CAN BE HELPFUL WITH A STUFFED UP NOSE. AVOID NASAL SPRAYS WITH NEOSYNEPHRINE THEY CAN CAUSE THE NASAL CONGESTION TO WORSEN. GO TO THE EMERGENCY DEPARTMENT FOR ANY WORSENING OF YOUR CONDITION OR QUESTIONS OR CONCERNS. - Billing Disposition and Condition Condition: STABLE Disposition: HOME
== END 2017-11-16 13:24 | disposition home or self-care (01) ==
LOC: UCEAST 11:48
DX: J18.9 Pneumonia, unspecified organism (principal); R09.81 Nasal congestion; I11.9 Hypertensive heart disease without heart failure; J44.9 Chronic obstructive pulmonary disease, unspecified; Z95.2 Presence of prosthetic heart valve; Z79.01 Long term (current) use of anticoagulants; Z88.1 Allergy status to other antibiotic agents; F17.210 Nicotine dependence, cigarettes, uncomplicated
CPT/HCPCS: 36415; 71046; 80053; 85025; 86140; 99212; G0463

== ENCOUNTER 2017-11-17 17:27 | Inpatient (IN) | payer MEDICARE, BC ==
[2017-11-17] MEDS ORDERED: Albuterol/Ipratropium NEB.SOL* Albuterol 2.5 MG/Ipratropium 0.5 MG 3 ML INH ONE (18:26)
[2017-11-17] MEDS ORDERED: predniSONE TAB* 20 MG PO ONE (18:27)
[2017-11-17 19:40] LABS: ABS Basophils 0 10^3/ul (0-0.2); ABS Eosinophils 0.2 10^3/ul (0-0.6); ABS Lymphocytes 0.9 10^3/ul (1.0-4.8); ABS Monocytes 0.6 10^3/ul (0-0.8); ABS Neutrophils 3.7 10^3/ul (1.5-7.7); ABS Nucleated RBC 0 10^3/ul; Eosinophil % 3.3 % (0-6); Hematocrit 35 % (42-52); Hemoglobin 11.9 g/dl (14.0-18.0); Lymphocyte % 16.7 % (25-47); Mean Corpuscular HGB Conc 34 g/dl (31-36); Mean Corpuscular Hemoglobin 30 pg (27-31); Mean Corpuscular Volume 88 fL (80-94); Mean Platelet Volume 7.9 um3 (7.4-10.4); Nucleated Red Blood Cells % 0; Platelet Count 226 10^3/ul (150-450); Red Blood Count 4.03 10^6/ul (4.0-5.4); Red Cell Distribution Width 17 % (10.5-15); White Blood Count 5.3 10^3/ul (3.5-10.8)
[2017-11-17 19:57] LABS: EGFR Non-African American 17.6 (>60)
--- NOTE | 2017-11-17 19:58 | RAD ---
HISTORY: Pneumonia, pulmonary symptoms worsening COMPARISONS: November 16, 2014 VIEWS: 4: Frontal dual-energy and lateral views of the chest. FINDINGS: CARDIOMEDIASTINAL SILHOUETTE: The cardiomediastinal silhouette is normal. A prosthetic heart valve is noted. AIDA: The aida are normal. PLEURA: The costophrenic angles are sharp. No pleural abnormalities are noted. LUNG PARENCHYMA: There is persistent patchy alveolar opacification of the right middle lobe. ABDOMEN: The upper abdomen is clear. There is no subphrenic gas. BONES AND SOFT TISSUES: The patient is status post median sternotomy. OTHER: None. IMPRESSION: PERSISTENT PATCHY CONSOLIDATION OF THE RIGHT MIDDLE LOBE, STABLE FROM NOVEMBER 16, 2017. RECOMMEND FOLLOW-UP UNTIL RESOLUTION TO EXCLUDE UNDERLYING PULMONARY PARENCHYMAL PATHOLOGY.
--- NOTE | 2017-11-17 22:16 | ED ---
I, Cyrus Ren, scribed for Belle Viera MD on 11/17/17 at 1903 . Progress - Progress Note Progress Note: This patient was signed out from Dr. Graham, pending disposition, awaiting CXR. CXR reveals PERSISTENT PATCHY CONSOLIDATION OF THE RIGHT MIDDLE LOBE, STABLE FROM NOVEMBER 16, 2017. RECOMMEND FOLLOW-UP UNTIL RESOLUTION TO EXCLUDE UNDERLYING PULMONARY PARENCHYMAL PATHOLOGY. ED physician has reviewed this radiology report. The patient has an O2 sat of 92% on room air. His fever is under control. He has taken levaquin for the past three days with no improvement. The patient has bilateral rhonchi on exam. The patients condition is fair and he will be admitted for COPD and PNA to Dr. Nesbitt. Course/Dx - Course Course Of Treatment: This patient was signed out from Dr. Graham, pending disposition, awaiting CXR. CXR reveals PERSISTENT PATCHY CONSOLIDATION OF THE RIGHT MIDDLE LOBE, STABLE FROM NOVEMBER 16, 2017. RECOMMEND FOLLOW-UP UNTIL RESOLUTION TO EXCLUDE UNDERLYING PULMONARY PARENCHYMAL PATHOLOGY. ED physician has reviewed this radiology report. The patient has an O2 sat of 92% on room air. His fever is under control. He has taken levaquin for the past three days with no improvement. The patient has bilateral rhonchi on exam. The patients condition is fair and he will be admitted for COPD and PNA to Dr. Nesbitt. - Diagnoses Provider Diagnoses: Pneumonia, COPD (chronic obstructive pulmonary disease) - Provider Notifications Discussed Care Of Patient With: Pillo Nesbitt Time Discussed With Above Provider: 21:52 Instructed by Provider To: Admit As Inpatient Discharge - Sign-Out/Discharge Documenting (check all that apply): Discharge/Admit/Transfer, Receiving Sign-Out Receiving patient FROM: Ruiz Graham - Discharge Plan Condition: Fair Disposition: ADMITTED TO [facility] Referrals: Romina Bolden MD [Primary Care Provider] - The documentation as recorded by the Mikal camargo Gabriel accurately reflects the service I personally performed and the decisions made by me, Belle Viera MD.
[2017-11-17] MEDS ORDERED: Piperacillin/Tazobac ADVAN(*) 3.375 GM in NS 0.9% 100 ML* 100 ML IVPB ONE (22:32)
[2017-11-17] MEDS ORDERED: Azithromycin IV(*) 500 MG in NS 0.9% 250 ML* 250 ML IVPB STA (22:34)
[2017-11-17] MEDS ORDERED: Piperacillin/Tazobac (*) 3.375 GM BAG ONE (22:41)
[2017-11-17] MEDS ORDERED: Spiriva Inhaler DEVICE* 1 EACH DEVICE SCH (23:45)
[2017-11-17] MEDS ORDERED: Acetaminophen TAB* 325 MG PO PRN (23:55)
[2017-11-17] MEDS ORDERED: Albuterol 2.5 MG/3 ML NEB.SOL* (0.083%) INH PRN (23:55)
[2017-11-17] MEDS ORDERED: Melatonin 3 MG TAB PO PRN (23:56)
[2017-11-17] MEDS ORDERED: Ondansetron ODT TAB* 4 MG PO PRN (23:59)
--- NOTE | 2017-11-18 00:03 | HP ---
H&P (Free Text) History and Physical: PCP: Randi Bolden MD Date/Time: 11/17/2017 2300 CC: advised by PCP to come to ED for abnormal blood work HPI: Mr Segura is a 77YO male HX DM2, HTN, HLD, s/p porcine AVR, CKD 4, diastolic HF, TIA, & COPD who reports nasal discharge for the past week for which he was seen at urgent care, diagnosed with pneumonia and prescribed levofloxacin which he has taken as prescribed for 3 doses. As his PCP couldn't see him w/i an acceptable time he followed up at urgent care for recheck wherein labs were abnormal and he was referred to his PCP who referred him [place] [facility] [place]. He is unclear as to what labs were abnormal, but review of records finds mild hyperKalemia of 5.1 & a creatinine increased from his baseline of ~ 2.5 to 3.0. On exam, he has scant end-expiratory wheezing & cough producing white phlegm. CXR shows persistent RML infiltrate. He reports constipation with no BM for ~1 week, no abdominal pain. PMedHx DM2 s/p porcine AVR diastolic HF COPD TIA CKD 4 HTN HLD GERD BPH Ambulatory Orders Finasteride TAB* [Proscar TAB*] 5 mg PO DAILY 09/21/13 Aspirin EC TAB* [Ecotrin EC Low Dose 81 MG*] 81 mg PO DAILY 09/07/15 Pantoprazole TAB (NF) [Protonix TAB (NF)] 40 mg PO DAILY 09/07/15 Metoprolol Tartrate TAB* [Lopressor TAB*] 25 mg PO BID 04/03/17 Furosemide TAB* [Lasix TAB*] 20 mg PO DAILY tab 04/04/17 Atorvastatin* [Lipitor 80 MG*] 1 tab PO DAILY 11/13/17 Darifenacin Hydrobromide [Darifenacin ER] 15 mg PO DAILY 11/13/17 Sildenafil (NF) [Viagra (NF)] 25 mg PO DAILY PRN 11/17/17 Tamsulosin CAP* [Flomax CAP*] 0.4 mg PO DAILY 11/17/17 tiZANidine TAB* [Zanaflex TAB*] 2 mg PO BID 11/17/17 Allergies cephalexin [From Keflex] Allergy (Verified 11/16/17 11:52) N/V PSurgHx porcine AVR 2015 planned OU cataract extractions in December SocHx: 3 cigars daily, no alcohol, no recreational drugs; single, lives alone, 1 daughter who lives in [place]; full code status - needs follow up FamHx: reviewed, non-contributory ROS: as above, otherwise reviewed and all were negative vitals: Vital Signs Temp 37.1 C 11/17/17 17:50 Pulse 69 11/17/17 21:35 Resp 23 11/17/17 21:35 BP 114/65 11/17/17 21:35 Pulse Ox 93 11/17/17 21:35 Intake & Output 11/16/17 11/17/17 11/17/17 23:59 11:59 23:59 Intake Total 100 Balance 100 Weight 74.843 kg Intake: IV Fluids 100 Constitutional: NAD, normally developed, overweight male HEENM: atraumatic; sclera/conjunctiva: anicteric/clear; hearing: clinically intact; oropharynx: Neck: soft tissue: non-tender; thyroid: normal Pulmonary: diminished bilaterally w/ scant end-expiratory wheeze & prolonged expiratory phase, fair aeration, no accessory muscle use CV: RR/RR, normal S1S2, no carotid bruit, no jugular venous distention, 2+ B DP/ PT, no edema Abdominal: soft, non-distended, non-tender, no rebound/guarding/rigidity, normoactive bowel sounds, no hepatosplenomegaly or masses, no costovertebral angle tenderness Musculoskeletal: general: grossly intact, non-tender Integumental: normal appearance and texture of exposed skin Psychiatric orientation: AA&O to PPS affect: calm mood: cooperative eye contact: good content: reliable responses: timely insight: fair Testing: Lab Results 11/17/17 11/17/17 11/17/17 Range/Units 19:29 19:29 19:29 WBC 5.3 (3.5-10.8) 10^3/ul RBC 4.03 (4.0-5.4) 10^6/ul Hgb 11.9 L (14.0-18.0) g/dl Hct 35 L (42-52) % MCV 88 (80-94) fL MCH 30 (27-31) pg MCHC 34 (31-36) g/dl RDW 17 H (10.5-15) % Plt Count 226 (150-450) 10^3/ul MPV 7.9 (7.4-10.4) um3 Neut % (Auto) 68.9 (38-83) % Lymph % (Auto) 16.7 L (25-47) % [place] % (Auto) 10.4 H (0-7) % Eos % (Auto) 3.3 (0-6) % Baso % (Auto) 0.7 (0-2) % Absolute Neuts (auto) 3.7 (1.5-7.7) 10^3/ul Absolute Lymphs (auto) 0.9 L (1.0-4.8) 10^3/ul Absolute Monos (auto) 0.6 (0-0.8) 10^3/ul Absolute Eos (auto) 0.2 (0-0.6) 10^3/ul Absolute Basos (auto) 0 (0-0.2) 10^3/ul Absolute Nucleated RBC 0 10^3/ul Nucleated RBC % 0 Sodium 138 L (139-145) mmol/L Potassium 4.9 (3.5-5.0) mmol/L Chloride 109 (101-111) mmol/L Carbon Dioxide 22 (22-32) mmol/L Anion Gap 7 (2-11) mmol/L BUN 53 H (6-24) mg/dL Creatinine 3.42 H (0.67-1.17) mg/dL Est GFR ( Amer) 22.7 (>60) Est GFR (Non-Af Amer) 17.6 (>60) BUN/Creatinine Ratio 15.5 (8-20) Glucose 87 (70-100) mg/dL Lactic Acid 1.2 (0.5-2.0) mmol/L Calcium 8.7 (8.6-10.3) mg/dL Total Bilirubin 0.50 (0.2-1.0) mg/dL AST 16 (13-39) U/L ALT 16 (7-52) U/L Alkaline Phosphatase 76 (34-104) U/L Total Creatine Kinase 131 (10-223) U/L Troponin I 0.03 (<0.04) ng/mL C-Reactive Protein 10.09 H (< 5.00) mg/L Total Protein 6.7 (6.4-8.9) g/dL Albumin 3.6 (3.2-5.2) g/dL Globulin 3.1 (2-4) g/dL Albumin/Globulin Ratio 1.2 (1-3) ECG, personally reviewed: NSR rate 61, no ischemia CXR, personally reviewed: IMPRESSION: PERSISTENT PATCHY CONSOLIDATION OF THE RIGHT MIDDLE LOBE, STABLE FROM NOVEMBER 16, 2017. RECOMMEND FOLLOW-UP UNTIL RESOLUTION TO EXCLUDE UNDERLYING PULMONARY PARENCHYMAL PATHOLOGY. Impression: 77M HX DM2, HTN, HLD, s/p porcine AVR, CKD 4, diastolic HF, TIA, & COPD presenting with RML pneumonia and COPD exacerbation DIAGNOSIS & PLAN Primary COPD exacerbation : albuterol, mometasone/formoterol, tiotropium, & prednisone burst/taper : supplemental oxygen : smoking cessation encouraged, moderate motivation : supportive care RML CAP : IV azithromycin & piperacillin/tazobactam given in ED : will continue with azithromycin & ceftriaxone : blood & sputum CXs : IVFs : check S pneumo & Legionella urine antigens constipation : MOM 30cc Q4H x2 tonight : docusate Secondary DM2 : check A1c : consistent carb diet : ACHS glucometry w/ correctional insulin HX s/p porcine AVR : no acute issues HX diastolic HF : hold furosemide for now : strict I&Os : daily weights TIA : continue aspirin CKD 4 : periodic monitoring HTN : continue metoprolol HLD : continue atorvastatin BPH : continue finasteride, tamsulosin, & darifenacin GERD : continue pantoprazole Admission Rational: inpatient for IVFs & IV ABX in patient at risk of rapid deterioration, inappropriate for outpatient setting DVTp: SCDs & heparin SQ Code Status: full HCP: daughterLoy
[2017-11-18 01:02] LABS: ABS Basophils 0 10^3/ul (0-0.2); ABS Eosinophils 0 10^3/ul (0-0.6); ABS Lymphocytes 0.3 10^3/ul (1.0-4.8); ABS Monocytes 0.1 10^3/ul (0-0.8); ABS Neutrophils 4.5 10^3/ul (1.5-7.7); ABS Nucleated RBC 0 10^3/ul; Eosinophil % 0.5 % (0-6); Hematocrit 35 % (42-52); Hemoglobin 11.4 g/dl (14.0-18.0); Lymphocyte % 6.1 % (25-47); Mean Corpuscular HGB Conc 33 g/dl (31-36); Mean Corpuscular Hemoglobin 29 pg (27-31); Mean Corpuscular Volume 89 fL (80-94); Nucleated Red Blood Cells % 0; Platelet Count 213 10^3/ul (150-450); Red Blood Count 3.87 10^6/ul (4.0-5.4); Red Cell Distribution Width 17 % (10.5-15); White Blood Count 4.9 10^3/ul (3.5-10.8)
[2017-11-18 01:10] LABS: INR 1.07 (0.77-1.02)
[2017-11-18 01:20] LABS: EGFR Non-African American 17.7 (>60)
[2017-11-18] MEDS: Magnesium Hydroxide LIQ* 30 ML UDC PO SCH ×2 (01:26→05:34)
[2017-11-18] MEDS: NS 0.9% 1000 ML* 1,000 ML IV SCH ×2 (01:26→15:39)
[2017-11-18] MEDS: Nicotine PATCH 7 MG/24 HR* PATCH TRANSDERM SCH ×2 (01:26→09:05)
[2017-11-18] MEDS: Albuterol 2.5 MG/3 ML NEB.SOL* (0.083%) INH SCH ×4 (01:34→19:43)
[2017-11-18] MEDS: Heparin VIAL(*) 5000 UNITS/ML VIAL (FIVE THOUSAND) SUBCUT SCH ×3 (05:34→22:05)
[2017-11-18] MEDS ORDERED: cefTRIAXone VIAL(*) 1,000 MG in NS 0.9% 50 ML* 50 ML IVPB SCH (06:00)
[2017-11-18 07:04] LABS: ABS Basophils 0 10^3/ul (0-0.2); ABS Eosinophils 0 10^3/ul (0-0.6); ABS Lymphocytes 0.3 10^3/ul (1.0-4.8); ABS Monocytes 0.1 10^3/ul (0-0.8); ABS Neutrophils 3.5 10^3/ul (1.5-7.7); ABS Nucleated RBC 0 10^3/ul; Eosinophil % 0.2 % (0-6); Hematocrit 33 % (42-52); Hemoglobin 11.3 g/dl (14.0-18.0); Lymphocyte % 8.6 % (25-47); Mean Corpuscular HGB Conc 34 g/dl (31-36); Mean Corpuscular Hemoglobin 30 pg (27-31); Mean Corpuscular Volume 88 fL (80-94); Mean Platelet Volume 8.3 um3 (7.4-10.4); Nucleated Red Blood Cells % 0; Platelet Count 228 10^3/ul (150-450); Red Blood Count 3.81 10^6/ul (4.0-5.4); Red Cell Distribution Width 17 % (10.5-15)
[2017-11-18 07:25] LABS: EGFR Non-African American 18.1 (>60)
[2017-11-18] MEDS: Tiotropium CAP.INH* CAP.INH/18 MCG (USE ORDER SET !) INH SCH (07:58)
[2017-11-18] MEDS: Mometasone/Formoter 200/5 MDI INH SCH ×2 (07:58→19:43)
[2017-11-18] MEDS: tiZANidine TAB* 2 MG PO SCH ×2 (09:06→22:05)
[2017-11-18] MEDS: Docusate CAP* 100 MG PO SCH ×2 (09:06→23:25)
[2017-11-18] MEDS: Atorvastatin* 80 MG TAB PO SCH (09:06)
[2017-11-18] MEDS: Metoprolol Tartrate TAB* 25 MG PO SCH ×2 (09:07→22:05)
[2017-11-18] MEDS: Tamsulosin CAP* 0.4 MG PO SCH (09:08)
[2017-11-18] MEDS: Finasteride TAB* 5 MG PO SCH (09:08)
[2017-11-18] MEDS: Insulin LISPRO* 1 UNITS UNIT SUBCUT SCH ×4 (09:09→22:05)
[2017-11-18] MEDS: Aspirin EC TAB* 81 MG TAB.EC PO SCH (09:09)
[2017-11-18] MEDS: Omeprazole CAP* 20 MG PO SCH (09:09)
[2017-11-18 09:46] LABS: Urine Appearance Clear; Urine Blood Negative (Negative); Urine Color Yellow; Urine Ketones Negative (Negative); Urine Protein 2+(100 mg/dL) (Negative); Urine Specific Gravity 1.016 (1.010-1.030); Urine Urobilinogen Negative (Negative)
[2017-11-18] MEDS: DARIFENACIN 15 MG PO SCH (10:03)
[2017-11-18] MEDS ORDERED: predniSONE TAB* 20 MG PO SCH (18:00)
[2017-11-18] MEDS ORDERED: Levofloxacin 750 MG IVPREMIX(* 750 MG/150 ML BAG IVPB SCH (19:00)
--- NOTE | 2017-11-18 19:00 | PN ---
Hospitalist Progress Note Date of Service: 11/18/17 Pt seen and examined. Meds and labs reviewed. ROS: Denied BEY/dizziness, F/C, N/V, CP, SOB, increased cough, sputum production , abd pain, diarrhea, constipation, dysuria, myalgias, arthralgias, throat pain , and new skin lesions. The rest of the 14 point ROS are unremarkable. PHYSICAL EXAM: GEN APPEARANCE: Awake, not in acute distress HEENT: NC/AT, PERRLA, moist oral mucosa, (-) throat erythema NECK: Soft, supple, (-) cervical LAD, (-)JVD HEART: S1S2 WNL, RRR, No MRG CHEST: CTA, BL, GAE, No W/R/R ABD: Soft, ND/NT, NABS 4x Q EXT: No C/C/E SKIN: Warm to touch PSYCH: No active psychosis, hallucinations, depression, SI/HI ASSESSMENT AND PLAN: #COPD exacerbation likely due to CAP: -Received Zosyn x1 and currently on Azithromycin -Given lack of gram neg coverage, will change Azithromycin to Levaquinpt allergic to Cephalosporins but only nausea and vomiting as reaction #Constipation: -Continue Colace and will continue watchful waiting #DM: -Continue Insulin SS #DVTp: -Continue Heparin SQ #Dispo: -Will continue to follow cultures
[2017-11-18] MEDS ORDERED: Azithromycin IV(*) 250 MG in D5W 250 ML BAG* 250 ML IVPB SCH (22:00)
[2017-11-18] MEDS ORDERED: Azithromycin IV(*) 500 MG in NS 0.9% 250 ML* 250 ML IVPB SCH (22:00)
[2017-11-18] MEDS ORDERED: Azithromycin IV(*) 250 MG in NS 0.9% 250 ML* 250 ML IVPB SCH (22:10)
[2017-11-19] MEDS: Albuterol 2.5 MG/3 ML NEB.SOL* (0.083%) INH SCH ×3 (01:18→13:31)
[2017-11-19] MEDS: Heparin VIAL(*) 5000 UNITS/ML VIAL (FIVE THOUSAND) SUBCUT SCH ×2 (05:44→14:52)
[2017-11-19] MEDS ORDERED: cefTRIAXone(*) 1 GM in NS 0.9% 50 ML* 50 ML IVPB SCH (06:00)
[2017-11-19 06:07] LABS: ABS Basophils 0 10^3/ul (0-0.2); ABS Eosinophils 0 10^3/ul (0-0.6); ABS Lymphocytes 0.3 10^3/ul (1.0-4.8); ABS Monocytes 0.1 10^3/ul (0-0.8); ABS Neutrophils 5.9 10^3/ul (1.5-7.7); ABS Nucleated RBC 0 10^3/ul; Eosinophil % 0 % (0-6); Hematocrit 31 % (42-52); Hemoglobin 10.2 g/dl (14.0-18.0); Lymphocyte % 4.3 % (25-47); Mean Corpuscular HGB Conc 33 g/dl (31-36); Mean Corpuscular Hemoglobin 30 pg (27-31); Mean Corpuscular Volume 89 fL (80-94); Mean Platelet Volume 8.1 um3 (7.4-10.4); Nucleated Red Blood Cells % 0; Platelet Count 193 10^3/ul (150-450); Red Blood Count 3.46 10^6/ul (4.0-5.4); Red Cell Distribution Width 17 % (10.5-15); White Blood Count 6.4 10^3/ul (3.5-10.8)
[2017-11-19 06:30] LABS: EGFR Non-African American 25.8 (>60)
[2017-11-19] MEDS: Mometasone/Formoter 200/5 MDI INH SCH (07:36)
[2017-11-19] MEDS: NS 0.9% 1000 ML* 1,000 ML IV SCH (07:57)
[2017-11-19] MEDS: Tiotropium CAP.INH* CAP.INH/18 MCG (USE ORDER SET !) INH SCH (08:25)
--- NOTE | 2017-11-19 08:52 | ED ---
Lupillo Núñez Tiffany, scribed for Ruiz Graham on 11/17/17 at 1831 . Respiratory - HPI Summary HPI Summary: 77 y/o M referred to [facility] by PMD presents with pneumonia diagnosed 2 days ago. Symptoms aggravated and alleviated by nothing. Reports cough with phlegm. Denies weakness, shortness of breath, chest pain, abdominal pain, bilateral leg edema. Has been taking antibiotics. Pt's lab results from today showed elevated sodium and CRP. - History of Current Complaint Chief Complaint: EDGeneral Stated Complaint: ABN LABS Time Seen by Provider: 11/17/17 18:19 Hx Obtained From: Patient Onset/Duration: Lasting Days - 2 days, Still Present, Worse Since - today Aggravating Factor(s): Nothing Alleviating Factor(s): Nothing Associated Signs and Symptoms: Negative - weakness, shortness of breath, chest pain, abdominal pain, bilateral leg edema. - Allergy/Home Medications Allergies/Adverse Reactions: Allergies Allergy/AdvReac Type Severity Reaction Status Date / Time cephalexin [From Keflex] Allergy N/V Verified 11/16/17 11:52 PMH/Surg Hx/FS Hx/Imm Hx Previously Healthy: No Endocrine/Hematology History: Reports: Hx Anticoagulant Therapy, Hx Blood Transfusions, Hx Diabetes - type 2 dm Denies: Hx Thyroid Disease, Hx Unexplained Bleeding Cardiovascular History: Reports: Hx Congestive Heart Failure, Hx Coronary Artery Disease, Hx Hypercholesterolemia, Hx Hypertension, Hx Valvular Heart Disease - aortic valve replacement Denies: Hx Auto Implanted Cardiovert Defib, Hx Congenital Heart Disease, Hx Myocardial Infarction, Hx Pacemaker/ICD, Hx Syncope Comment Only: Other Cardiovascular Problems/Disorders - AORTIC STENOSIS Respiratory History: Reports: Hx Asthma, Hx Chronic Obstructive Pulmonary Disease (COPD), Hx Sleep Apnea Comment Only: Other Respiratory Problems/Disorders - SOB GI History: Denies: Hx Ulcer Comment Only: Other GI Disorders - HERNIA REPAIR History: Reports: Hx Benign Prostatic Hyperplasia, Hx Chronic Renal Failure - CKD stage 3, Hx Renal Disease - RENAL FUNCTION DUE TO DIABETES, Other Problems/Disorders - chronic renal insufficiency Denies: Hx Dialysis Musculoskeletal History: Reports: Hx Back Problems, Hx Gout, Other Musculoskeletal History - leg and foot cramps Denies: Hx Arthritis, Hx Osteoporosis Sensory History: Reports: Hx Contacts or Glasses Denies: Hx Eye Injury, Hx Glaucoma, Hx Hearing Aid, Hx Hearing Problem Opthamlomology History: Reports: Hx Contacts or Glasses Denies: Hx Eye Injury, Hx Glaucoma Neurological History: Reports: Hx Transient Ischemic Attacks (TIA) Denies: Hx Dementia, Hx Developmental Delay, Hx Migraine, Hx Seizures, Hx Spinal Cord Injury Psychiatric History: Reports: Hx Anxiety Denies: Hx Attention Deficit Hyperactivity Disorder, Hx Eating Disorder, Hx Depression, Hx Panic Disorder, Hx Post Traumatic Stress Disorder, Hx Inpatient Treatment, Hx Community Mental Health Tx, Hx Schizophrenia, Hx Bipolar Disorder , Hx Suicide Attempt, Hx of Violent Episodes Against Others, Hx Substance Abuse , Other Psychiatric Issues/Disorders - Surgical History Surgery Procedure, Year, and Place: ABDOMINAL HERNIA REPAIR, skull fracture in the . Aortic valve replacement September 2014 Hx Anesthesia Reactions: No - Immunization History Date of Tetanus Vaccine: unknown Date of Influenza Vaccine: None Infectious Disease History: No Infectious Disease History: Denies: Hx Clostridium Difficile, Hx Hepatitis, Hx Human Immunodeficiency Virus (HIV), Hx of Known/Suspected MRSA, Hx Shingles, Hx Tuberculosis, Hx Known/ Suspected VRE, Hx Known/Suspected VRSA, History Other Infectious Disease, Traveled Outside the [place] in Last 30 Days - Family History Known Family History: Positive: Cardiac Disease, Hypertension Negative: Diabetes - Social History Alcohol Amount: SOCIAL Hx Substance Use: No Substance Use Type: Reports: None Substance Use Comment - Amount & Last Used: pt confused; current substance use is unknown, but no known history Hx Tobacco Use: Yes Smoking Status (MU): Light Every Day Tobacco Smoker Type: Cigars Amount Used/How Often: 2-3 CIGARS/DAY Length of Time of Smoking/Using Tobacco: 57 years Have You Smoked in the Last Year: Yes Review of Systems Negative: Chest Pain Positive: Cough - with phlegm, Other - pneumonia diagnosed 2 days ago. Negative : Shortness Of Breath Negative: Abdominal Pain Negative: Edema - bilateral leg Negative: Weakness All Other Systems Reviewed And Are Negative: Yes Physical Exam - Summary Physical Exam Summary: Appearance: Well appearing, no pain distress Skin: warm, dry, reflects adequate perfusion Head/face: normal Eyes: EOMI, WILLY ENT: normal Neck: supple, non-tender Respiratory: occasional rhonchi Cardiovascular: RRR, pulses symmetrical Abdomen: non-tender, soft Bowel: present Musculoskeletal: normal, strength/ROM intact Neuro: normal, sensory motor intact, A&Ox3 Triage Information Reviewed: Yes Vital Signs On Initial Exam: Initial Vitals Temp Pulse Resp BP Pulse Ox 98.7 F 62 16 105/62 98 11/17/17 17:50 11/17/17 17:50 11/17/17 17:50 11/17/17 17:50 11/17/17 17:50 Vital Signs Reviewed: Yes Diagnostics - Vital Signs Vital Signs Temp Pulse Resp BP Pulse Ox 11/17/17 17:50 98.7 F 62 16 105/62 98 - Laboratory Lab Statement: Any lab studies that have been ordered have been reviewed, and results considered in the medical decision making process. - EKG 18:39 Cardiac Rate: NL - 61 BPM EKG Rhythm: Sinus Rhythm EKG Interpretation: No acute changes Disposition - Course Course Of Treatment: 77 y/o M referred to [facility] by PMD presents with pneumonia diagnosed 2 days ago. Pt will be signed out to Dr. Viera, awaiting imaging results. - Diagnoses Provider Diagnoses: Pneumonia, Weakness Discharge - Sign-Out/Discharge Documenting (check all that apply): Sign-Out Patient Signing out patient TO: Belle Viera - Discharge Plan Referrals: Romina Bolden MD [Primary Care Provider] - The documentation as recorded by the Lupillo camargo Tiffany accurately reflects the service I personally performed and the decisions made by , Ruiz Graham.
[2017-11-19] MEDS ORDERED: Dextrose 50% Syringe 50 ML* 25 GM/50 ML SYRINGE IV PUSH PRN ×3 (09:43→12:26)
[2017-11-19] MEDS ORDERED: Insulin LISPRO* 1 UNITS UNIT SUBCUT STA ×2 (10:18→12:26)
[2017-11-19] MEDS ORDERED: Insulin LISPRO* 1 UNITS UNIT SUBCUT ONE (10:22)
[2017-11-19] MEDS: Omeprazole CAP* 20 MG PO SCH (10:26)
[2017-11-19] MEDS: Atorvastatin* 80 MG TAB PO SCH (10:26)
[2017-11-19] MEDS: Metoprolol Tartrate TAB* 25 MG PO SCH (10:26)
[2017-11-19] MEDS: Aspirin EC TAB* 81 MG TAB.EC PO SCH (10:26)
[2017-11-19] MEDS: tiZANidine TAB* 2 MG PO SCH (10:26)
[2017-11-19] MEDS: Tamsulosin CAP* 0.4 MG PO SCH (10:27)
[2017-11-19] MEDS: Finasteride TAB* 5 MG PO SCH (10:27)
[2017-11-19] MEDS: Docusate CAP* 100 MG PO SCH (10:36)
[2017-11-19] MEDS: DARIFENACIN 15 MG PO SCH (10:41)
[2017-11-19] MEDS: Insulin LISPRO* 1 UNITS UNIT SUBCUT SCH (10:46)
[2017-11-19 11:23] VITALS: BP 185/77
[2017-11-19] MEDS ORDERED: Insulin ASPART (NF) 100 UNIT/ML VIAL SUBCUT SCH (11:30)
[2017-11-19] MEDS ORDERED: Insulin LISPRO* 1 UNITS UNIT SUBCUT SCH (11:30)
[2017-11-19] MEDS: Nicotine PATCH 7 MG/24 HR* PATCH TRANSDERM SCH (12:46)
--- NOTE | 2017-11-19 15:22 | PN ---
Work Excuse - Work Note Work Note: The above employee has been evaluated on 11/19/17. The physician has instructed the employee concerning further work as described below. Mr. Segura was admitted to our facility on 11/17/17 and has been seen and evaluated prior to his discharge on 11/19/17. He should be able to resume his responsibilities for work on 11/23/17. Work Status: [] Peng Gerber MD [id number]
--- NOTE | 2017-11-20 18:53 | DS ---
CC: Dr. Nesbitt; Dr. Ruiz Graham; Dr. Romina Bolden DISCHARGE SUMMARY: DATE OF ADMISSION: DATE OF DISCHARGE: 11/19/17 DISCHARGE DIAGNOSES: As follows: 1. Chronic obstructive pulmonary disease exacerbation likely secondary to community-acquired pneumonia. 2. Constipation. 3. Diabetes mellitus. DISCHARGE MEDICATIONS: As follows: 1. Doxycycline 100 mg p.o. b.i.d. for 7 more days. 2. Aspirin 81 mg p.o. daily. 3. Atorvastatin 80 mg p.o. daily. 4. Darifenacin hydrobromide 15 mg p.o. daily. 5. Finasteride 5 mg p.o. daily. 6. Melatonin 3 mg p.o. q.h.s. 7. Metoprolol 25 mg p.o. b.i.d. 8. Pantoprazole 40 mg p.o. daily. 9. Tamsulosin 0.4 mg p.o. daily. 10. Tizanidine 2 mg p.o. b.i.d. 11. Colace 200 mg p.o. daily. 12. Lasix 20 mg p.o. daily. 13. Melatonin 3 mg p.o. daily. 14. Mometasone/formoterol 2 puffs inhalation b.i.d. 15. Nicotine patch 1 patch transdermal daily. 16. Prednisone taper for 14 days. 17. Sildenafil 25 mg p.o. daily. 18. Spiriva 1 inhalation daily. HISTORY OF PRESENT ILLNESS/HOSPITAL COURSE: The patient is a 77-year-old - [place] gentleman with history of diabetes mellitus type 2, hypertension, aortic stenosis status post porcine AVR and CKD 4, who presented on 11/17/17 at the advice of his PCP to present to the ED for abnormal blood work. More specifically, he reported that he had some nasal discharge for the past week and was seen at the urgent care and diagnosed to have pneumonia and was prescribed Levaquin for 3 days. His PCP however could not see him at that time within an acceptable time and he followed up at urgent care to recheck laboratories and they were found to be abnormal and was referred back to his PCP , who referred him to [facility] [place] ED. In the ED, he was diagnosed with COPD exacerbation due to his pneumonia and the patient was placed on Rocephin and azithromycin and he was found to be negative for both Legionella as well as Strep pneumo antigen and 2 days of blood cultures were found to be negative and had been clinically improved. He was then transitioned to oral doxycycline for 7 more days to complete a ten day treatment therapy, as well as prednisone rapid taper. He had been advised to follow up with PCP within 3 days post discharge and to take medications as prescribed and to contact hospital for care connect if there are problems or issues that will need to be addressed prior to his scheduled visit with his PCP. He also was found to have mildly increased systolic blood pressure on discharge. However, it is not consistent with his previous data. He had been advised to follow up with his PCP to see if these medications will need to be adjusted if his blood pressure is consistently elevated from previous baseline. PHYSICAL EXAMINATION: Shows the most recent vital signs of records with blood pressure of 153/65, saturating at 100%, 69 beats per minute, 18 per minute respiratory rate. General Appearance: The patient is awake, not in acute distress. HEENT: Normocephalic, atraumatic. PERRLA. Extraocular muscles intact. Negative for icterus. Moist oral mucosa. Negative for throat erythema. Neck is soft, supple with no cervical lymphadenopathy. No JVD. Heart: S1, S2 within normal limits. Regular rate and rhythm. No murmurs, rubs , or gallops. Chest: Clear to auscultation bilaterally. Good air entry. No wheezes, rales, or rhonchi. Abdomen is soft, nondistended, nontender. Normoactive bowel sounds x4. Extremities: No cyanosis, clubbing, or edema. Psychiatric: No active psychosis, depression, suicidal or homicidal ideations. Skin: Warm to touch. TIME SPENT: The total time spent evaluating the patient, reviewing pertinent data and appropriate documentation is greater than 30 minutes. [id number]/[facility] #: [id number] [facility]
== END 2017-11-19 16:45 | disposition home or self-care (01) | DRG 140 ==
LOC: ED 17:27 → MEDTELE 23:09
PROVIDERS: ADMIT Hospitalist; ATTEND Student in an Organized Health Care Education/Training Program
DX: J44.1 Chronic obstructive pulmonary disease with (acute) exacerbation (principal); J18.9 Pneumonia, unspecified organism; I13.0 Hypertensive heart and chronic kidney disease with heart failure and stage 1 through stage 4 chronic kidney disease, or unspecified chronic kidney disease; I50.32 Chronic diastolic (congestive) heart failure; N18.4 Chronic kidney disease, stage 4 (severe); J44.0 Chronic obstructive pulmonary disease with (acute) lower respiratory infection; I25.10 Atherosclerotic heart disease of native coronary artery without angina pectoris; G47.30 Sleep apnea, unspecified; N40.0 Benign prostatic hyperplasia without lower urinary tract symptoms; N18.3 Chronic kidney disease, stage 3 (moderate); E11.22 Type 2 diabetes mellitus with diabetic chronic kidney disease; F41.9 Anxiety disorder, unspecified; F17.290 Nicotine dependence, other tobacco product, uncomplicated; K21.9 Gastro-esophageal reflux disease without esophagitis; E11.36 Type 2 diabetes mellitus with diabetic cataract; K59.00 Constipation, unspecified; M10.9 Gout, unspecified; E66.3 Overweight; Z88.1 Allergy status to other antibiotic agents; Z86.73 Personal history of transient ischemic attack (TIA), and cerebral infarction without residual deficits; Z82.49 Family history of ischemic heart disease and other diseases of the circulatory system; Z79.82 Long term (current) use of aspirin; Z95.3 Presence of xenogenic heart valve; Z68.25 Body mass index [BMI] 25.0-25.9, adult
CPT/HCPCS: 36415; 71046; 80048; 80053; 81003; 81015; 82550; 82565; 82947; 83605; 83735; 84484; 84520; 85025; 85610; 85730; 86140; 87040; 87086; 87899; 93005; 94640; 99285; 99406; A9270-GY; J0456; J0696; J1644; J2543; J7512

== ENCOUNTER 2018-01-31 17:15 | Emergency (ER) | payer BC, MEDICARE ==
[2018-01-31 17:36] VITALS: BP 155/81
--- NOTE | 2018-01-31 17:44 | UC ---
Lower Extremity/Ankle HPI - HPI Summary HPI Summary: 77 yo male presents with LEFT knee pain, swelling, and redness that began 2 weeks ago and is getting progressively worse. This morning he woke up b/l MTP pain. He has a hx of gout here. Denies injury, fever, or chills. He is ambulatory, but does have significant pain. He has not taken anything OTC for his pain. - History of Current Complaint Chief Complaint: UCLowerExtremity Stated Complaint: L KNEE, R TOE COMPLAINT Time Seen by Provider: 01/31/18 17:43 Hx Obtained From: Patient Onset/Duration: Sudden Onset Severity Initially: Severe Severity Currently: Severe Pain Intensity: 10 Pain Scale Used: 0-10 Numeric Aggravating Factor(s): Standing, Ambulation Able to Bear Weight: Yes - Allergies/Home Medications Allergies/Adverse Reactions: Allergies Allergy/AdvReac Type Severity Reaction Status Date / Time cephalexin [From Keflex] AdvReac N/V Verified 01/31/18 17:36 PMH/Surg Hx/FS Hx/Imm Hx - Additional Past Medical History Additional PMH: CKD Aortic valve replacement CHF BPH Endocrine History: Diabetes Cardiovascular History: Hypertension Other History Of: Anticoagulant Therapy - Surgical History Surgical History: Yes Surgery Procedure, Year, and Place: ABDOMINAL HERNIA REPAIR, skull fracture in the . Aortic valve replacement September 2014 - Family History Known Family History: Positive: Cardiac Disease, Hypertension Negative: Diabetes - Social History Occupation: Retired Lives: Alone Alcohol Use: None Alcohol Amount: SOCIAL Substance Use Type: None Substance Use Comment - Amount & Last Used: pt confused; current substance use is unknown, but no known history Smoking Status (MU): Light Every Day Tobacco Smoker Type: Cigars Amount Used/How Often: 2-3 CIGARS/DAY Length of Time of Smoking/Using Tobacco: 57 years Have You Smoked in the Last Year: Yes When Did the Patient Quit Smoking/Using Tobacco: 2014 Household Exposure Type: Cigarettes - Immunization History Most Recent Influenza Vaccination: fall 2016 Most Recent Tetanus Shot: 2013 Most Recent Pneumonia Vaccination: 2013 Review of Systems Constitutional: Negative Skin: Negative Respiratory: Negative Cardiovascular: Negative Neurovascular: Negative Musculoskeletal: Other: - Left knee pain. b/l MTP pain Neurological: Negative Psychological: Negative All Other Systems Reviewed And Are Negative: Yes Physical Exam - Summary Physical Exam Summary: GENERAL: NAD. WDWN. No pain distress. SKIN: No rashes, sores, lesions, or open wounds. NECK: Supple. Nontender. No lymphadenopathy. CHEST: No accessory muscle use. Breathing comfortably and in no distress. CV: Pulses intact PT and DP. Brisk cap refill. MSK: B/L First MTP severe TTP. Mild edema. No erythema or open wounds. LEFT KNEE : Mild edema and overlying erythema. Mildly TTP. FROM. Strength 5/5. NEURO: Alert. Sensations intact and symmetric B/L LEs PSYCH: Age appropriate behavior. Triage Information Reviewed: Yes Vital Signs: Initial Vital Signs Temp 98.6 F 01/31/18 17:32 Pulse 80 01/31/18 17:32 Resp 22 01/31/18 17:32 BP 155/81 01/31/18 17:32 Pulse Ox 99 01/31/18 17:32 Vital Signs Reviewed: Yes Lower Extremity Course/Dx - Course Course Of Treatment: XR: left knee: IMPRESSION: SOFT TISSUE SWELLING. Suspect gout. Rx for prednisone and advised to f/u with podiatry and his PCP regarding his toenails and left knee pain. - Differential Dx/Diagnosis Provider Diagnoses: Gout b/l first MTP. Left knee pain Discharge - Sign-Out/Discharge Documenting (check all that apply): Patient Departure - Discharge Plan Condition: Stable Disposition: HOME Prescriptions: predniSONE TAB* [Deltasone 20 MG TAB*] 20 mg PO BID #12 tab Patient Education Materials: Gout (ED) Referrals: Romina Bolden MD [Primary Care Provider] - Sam Ellison DPM [Doctor of Podiatric Medicine] - As Soon As Possible Additional Instructions: If you develop a fever, shortness of breath, chest pain, new or worsening symptoms - please call your PCP or go to the ED. Your blood pressure was high at todays visit. Please see your primary provider within 4 weeks for recheck and re-evaluation. 1) Please follow up with Podiatry as soon as possible 2) If your left knee pain worsens - please see your PCP as soon as possible - Billing Disposition and Condition Condition: STABLE Disposition: Home
--- NOTE | 2018-01-31 18:36 | RAD ---
INDICATION: Left knee pain, redness and swelling. TECHNIQUE: 4 views of the left knee were obtained. FINDINGS: There is anterior soft tissue swelling. The bones are in normal alignment. No joint effusion or fracture is seen. Joint spaces appear maintained. There are several surgical clips which project over the soft tissues along the posterior medial aspect of the knee. IMPRESSION: SOFT TISSUE SWELLING.
[2018-01-31] MEDS ORDERED: predniSONE TAB* 20 MG PO ONE (18:57)
== END 2018-01-31 19:23 | disposition home or self-care (01) ==
LOC: UCEAST 17:15
DX: M25.562 Pain in left knee (principal); M10.9 Gout, unspecified; F17.210 Nicotine dependence, cigarettes, uncomplicated; E11.9 Type 2 diabetes mellitus without complications; I10 Essential (primary) hypertension; Z79.01 Long term (current) use of anticoagulants
CPT/HCPCS: 99211; G0463; J7512

== ENCOUNTER 2018-03-03 12:15 | Emergency (ER) | payer BC ==
[2018-03-03 13:41] LABS: ABS Basophils 0.1 10^3/ul (0-0.2); ABS Eosinophils 0.1 10^3/ul (0-0.6); ABS Monocytes 0.9 10^3/ul (0-0.8); ABS Neutrophils 4.9 10^3/ul (1.5-7.7); ABS Nucleated RBC 0 10^3/ul; Eosinophil % 1.7 % (0-6); Hematocrit 34 % (42-52); Hemoglobin 11.4 g/dl (14.0-18.0); Lymphocyte % 14.6 % (25-47); Mean Corpuscular HGB Conc 34 g/dl (31-36); Mean Corpuscular Hemoglobin 29 pg (27-31); Mean Corpuscular Volume 86 fL (80-94); Nucleated Red Blood Cells % 0; Platelet Count 235 10^3/ul (150-450); Red Blood Count 3.89 10^6/ul (4.00-5.40); Red Cell Distribution Width 16 % (10.5-15); White Blood Count 7.1 10^3/ul (3.5-10.8)
[2018-03-03 14:06] LABS: EGFR Non-African American 26.3 (>60)
[2018-03-03 15:24] VITALS: BP 137/56
--- NOTE | 2018-03-03 17:14 | ED ---
Complex/Multi-Sys Presentation - HPI Summary HPI Summary: This patient is a 77 year old M presenting to [facility] with a chief complaint of lethargy since 02/18/18. He endorses severe frequency, urinating every 10 minutes , fatigue, intermittent pain with urination, chills, HTN, rhinorrhea, waxing and waning pedal edema, decreased appetite, and constipation. He denies abd pain , back pain, and chest congestion/pain. PMHx BPH, CHF, and DM. SHx umbilical hernia repair. - History Of Current Complaint Chief Complaint: EDUrogenitalProblems Time Seen by Provider: 03/03/18 16:28 Hx Obtained From: Patient Onset/Duration: Gradual Onset, Lasting Weeks, Still Present Timing: Constant, Weeks Severity Currently: Mild Severity Initially: Mild Location: Negative Associated Signs And Symptoms: Positive: Weakness, Edema, Dysuria, Decreased Oral Intake, Other - constipation, rhinorrhea, urgency, chills, and hypertension.. Negative: Chest Pain, Abdominal Pain, Back Pain, Fever - Allergies/Home Medications Allergies/Adverse Reactions: Allergies Allergy/AdvReac Type Severity Reaction Status Date / Time cephalexin [From Keflex] AdvReac N/V Verified 01/31/18 17:36 Home Medications: Home Medications Mirabegron (NF) [Myrbetriq (NF)] 25 mg PO DAILY 03/03/18 [History Confirmed 06/08] PMH/Surg Hx/FS Hx/Imm Hx Endocrine/Hematology History: Reports: Hx Anticoagulant Therapy, Hx Blood Transfusions, Hx Diabetes - type 2 dm Denies: Hx Thyroid Disease, Hx Unexplained Bleeding Cardiovascular History: Reports: Hx Congestive Heart Failure, Hx Coronary Artery Disease, Hx Hypercholesterolemia, Hx Hypertension, Hx Valvular Heart Disease - aortic valve replacement Denies: Hx Auto Implanted Cardiovert Defib, Hx Congenital Heart Disease, Hx Myocardial Infarction, Hx Pacemaker/ICD, Hx Syncope Comment Only: Other Cardiovascular Problems/Disorders - AORTIC STENOSIS Respiratory History: Reports: Hx Asthma, Hx Chronic Obstructive Pulmonary Disease (COPD), Hx Sleep Apnea Comment Only: Other Respiratory Problems/Disorders - SOB GI History: Denies: Hx Ulcer Comment Only: Other GI Disorders - HERNIA REPAIR History: Reports: Hx Benign Prostatic Hyperplasia, Hx Chronic Renal Failure - CKD stage 3, Hx Renal Disease - RENAL FUNCTION DUE TO DIABETES, Other Problems/Disorders - chronic renal insufficiency Denies: Hx Dialysis Musculoskeletal History: Reports: Hx Back Problems, Hx Gout, Other Musculoskeletal History - leg and foot cramps Denies: Hx Arthritis, Hx Osteoporosis Sensory History: Reports: Hx Contacts or Glasses Denies: Hx Eye Injury, Hx Glaucoma, Hx Deafness, Hx Hearing Aid, Hx Hearing Problem Opthamlomology History: Reports: Hx Contacts or Glasses Denies: Hx Eye Injury, Hx Glaucoma EENT History: Denies: Hx Deafness Neurological History: Reports: Hx Transient Ischemic Attacks (TIA) Denies: Hx Dementia, Hx Developmental Delay, Hx Migraine, Hx Seizures, Hx Spinal Cord Injury Psychiatric History: Reports: Hx Anxiety Denies: Hx Attention Deficit Hyperactivity Disorder, Hx Eating Disorder, Hx Depression, Hx Panic Disorder, Hx Post Traumatic Stress Disorder, Hx Inpatient Treatment, Hx Community Mental Health Tx, Hx Schizophrenia, Hx Bipolar Disorder , Hx Suicide Attempt, Hx of Violent Episodes Against Others, Hx Substance Abuse , Other Psychiatric Issues/Disorders - Surgical History Surgery Procedure, Year, and Place: ABDOMINAL HERNIA REPAIR, skull fracture in the . Aortic valve replacement September 2014 Hx Anesthesia Reactions: No - Immunization History Date of Tetanus Vaccine: unknown Date of Influenza Vaccine: None Infectious Disease History: No Infectious Disease History: Denies: Hx Clostridium Difficile, Hx Hepatitis, Hx Human Immunodeficiency Virus (HIV), Hx of Known/Suspected MRSA, Hx Shingles, Hx Tuberculosis, Hx Known/ Suspected VRE, Hx Known/Suspected VRSA, History Other Infectious Disease, Traveled Outside the [place] in Last 30 Days - Family History Known Family History: Positive: Cardiac Disease, Hypertension Negative: Diabetes - Social History Occupation: Employed Full-time Lives: Alone Alcohol Use: None Alcohol Amount: SOCIAL Hx Substance Use: No Substance Use Type: Reports: None Substance Use Comment - Amount & Last Used: pt confused; current substance use is unknown, but no known history Hx Tobacco Use: Yes Smoking Status (MU): Light Every Day Tobacco Smoker Type: Cigars Amount Used/How Often: 2-3 CIGARS/DAY Length of Time of Smoking/Using Tobacco: 57 years Have You Smoked in the Last Year: Yes Review of Systems Positive: Chills, Fatigue, Other - lethargy. Negative: Fever Positive: Nasal Discharge Negative: Chest Pain Positive: Other - constipation, decreased appetite.. Negative: Abdominal Pain Positive: dysuria, frequency, pain Positive: Edema. Negative: Myalgia - back pain Positive: Weakness All Other Systems Reviewed And Are Negative: Yes Physical Exam - Summary Physical Exam Summary: General: well-appearing, no pain distress Skin: warm, color reflects adequate perfusion, dry Head: normal Eyes: EOMI, WILLY ENT: normal Neck: supple, non-tender Respiratory: CTA, breath sounds present Cardiovascular: RRR Abdomen: soft, non-tender Bowel: present Musculoskeletal: normal, strength/ROM intact Neurological: sensory/motor intact, A&O x3 Psychological: affect/mood appropriate Triage Information Reviewed: Yes Vital Signs On Initial Exam: Initial Vitals Temp Pulse Resp BP Pulse Ox 99.4 F 73 12 157/74 98 03/03/18 12:17 03/03/18 12:17 03/03/18 12:17 03/03/18 12:17 03/03/18 12:17 Vital Signs Reviewed: Yes Diagnostics - Vital Signs Vital Signs Temp Pulse Resp BP Pulse Ox 03/03/18 15:23 97.9 F 69 19 137/56 03/03/18 12:17 99.4 F 73 12 157/74 98 - Laboratory Lab Results: Lab Results 03/03/18 03/03/18 03/03/18 Range/Units 13:24 13:24 13:24 WBC 7.1 (3.5-10.8) 10^3/ul RBC 3.89 L (4.00-5.40) 10^6/ul Hgb 11.4 L (14.0-18.0) g/dl Hct 34 L (42-52) % MCV 86 (80-94) fL MCH 29 (27-31) pg MCHC 34 (31-36) g/dl RDW 16 H (10.5-15) % Plt Count 235 (150-450) 10^3/ul MPV 8.0 (7.4-10.4) um3 Neut % (Auto) 69.7 (38-83) % Lymph % (Auto) 14.6 L (25-47) % [place] % (Auto) 13.1 H (0-7) % Eos % (Auto) 1.7 (0-6) % Baso % (Auto) 0.9 (0-2) % Absolute Neuts (auto) 4.9 (1.5-7.7) 10^3/ul Absolute Lymphs (auto) 1.0 (1.0-4.8) 10^3/ul Absolute Monos (auto) 0.9 H (0-0.8) 10^3/ul Absolute Eos (auto) 0.1 (0-0.6) 10^3/ul Absolute Basos (auto) 0.1 (0-0.2) 10^3/ul Absolute Nucleated RBC 0 10^3/ul Nucleated RBC % 0 Sodium 131 L (135-145) mmol/L Potassium 4.0 (3.5-5.0) mmol/L Chloride 104 (101-111) mmol/L Carbon Dioxide 21 L (22-32) mmol/L Anion Gap 6 (2-11) mmol/L BUN 36 H (6-24) mg/dL Creatinine 2.42 H (0.67-1.17) mg/dL Est GFR ( Amer) 31.8 (>60) Est GFR (Non-Af Amer) 26.3 (>60) BUN/Creatinine Ratio 14.9 (8-20) Glucose 187 H (70-100) mg/dL Lactic Acid 0.7 (0.5-2.0) mmol/L Calcium 8.0 L (8.6-10.3) mg/dL Magnesium 1.7 L (1.9-2.7) mg/dL Total Bilirubin 0.70 (0.2-1.0) mg/dL AST 12 L (13-39) U/L ALT 11 (7-52) U/L Alkaline Phosphatase 52 (34-104) U/L Troponin I 0.03 (<0.04) ng/mL Total Protein 6.3 L (6.4-8.9) g/dL Albumin 3.5 (3.2-5.2) g/dL Globulin 2.8 (2-4) g/dL Albumin/Globulin Ratio 1.3 (1-3) TSH 0.83 (0.34-5.60) mcIU/mL Result Diagrams: 03/03/18 13:24 03/03/18 13:24 Lab Statement: Any lab studies that have been ordered have been reviewed, and results considered in the medical decision making process. - Ultrasound No standard instances Ultrasound Interpretation: Positive (See Comments) Ultrasound Interpretation Completed By: Radiologist - 1. There is increased and abnormal enlargement of the prostate gland which is also irregular in contour currently measuring 68 cc and previously measuring 22 cc volume. There is increasing mass effect upon the base of the urinary bladder. 2. Prevoid urinary bladder volume is 195 cc and post void residual volume is [address] Pringle has reviewed this report. - EKG 1434 Cardiac Rate: NL - 69 EKG Rhythm: Sinus Rhythm Ectopy: None EKG Interpretation: Concave up ST elevation in anterior leads EKG Comparison: No Significant Change - from 11/17/17 Re-Evaluation - Re-Evaluation First Eval Re-Evaluation Time: 21:10 Change: Unchanged Comment: Discussed results, pt is doing well. Complex Multi-Symp Course/Dx Course Of Treatment: DISCUSSED RESULTS WITH THE PATIENT. DISCUSSED STARTING ABX FOR POSSIBLE PROSTATE INFECTION; THE PATIENT PREFERS TO NOT START ABX AT THIS TIME. THE PATIENT IS ON FLOMAX. THE PATIENT RECENTLY STOPPED TAKING PREDNISONE WHICH MAY BE THE CAUSE OF THE FATIGUE. F/U PMD; RECHECK SOONER IF WORSE. - Diagnoses Provider Diagnoses: Fatigue, Urinary frequency, BPH (benign prostatic hyperplasia) Discharge - Sign-Out/Discharge Documenting (check all that apply): Patient Departure - discharge - Discharge Plan Condition: Stable Disposition: HOME Patient Education Materials: Benign Prostatic Hypertrophy (ED), Fatigue (ED), Urinary Urgency and Frequency (DC) Forms: *Work Release Referrals: Romina Bolden MD [Primary Care Provider] - Additional Instructions: FOLLOW UP WITH YOUR DOCTOR. GET RECHECKED FOR ANY WORSENING OF YOUR CONDITION OR QUESTIONS OR CONCERNS. - Billing Disposition and Condition Condition: STABLE Disposition: Home - Attestation Statements Document Initiated by Clive: Yes Documenting Scribe: Pan Barber Provider For Whom Clive is Documenting (Include Credential): Dr. Brendan Pringle MD Scribe Attestation: I, Pan Barber scribed for Dr. Brendan Pringle MD on 03/03/18 at 2151. Scribe Documentation Reviewed: Yes Provider Attestation: The documentation as recorded by the Pan camargo accurately reflects the service I personally performed and the decisions made by me, Dr. Brendan Pringle MD
[2018-03-03 20:43] LABS: Urine Appearance Clear; Urine Blood Negative (Negative); Urine Color Yellow; Urine Ketones Negative (Negative); Urine Protein 2+(100 mg/dL) (Negative); Urine Red Blood Cell Trace(0-2/hpf) (Absent); Urine Specific Gravity 1.012 (1.010-1.030); Urine Urobilinogen Positive (Negative); Urine White Blood Cell Trace(0-5/hpf) (Absent)
--- NOTE | 2018-03-03 20:56 | RAD ---
EXAM: US Retroperitoneal Complete, Renal CLINICAL HISTORY: 77 years old, male; Signs and symptoms; Other: Urinary frequency; Additional info: Urinary difficulties, HX bph, eval for retention TECHNIQUE: Real-time ultrasound of the retroperitoneum (complete) with image documentation. COMPARISON: RENAL BLAD US RENAL AND BLADDER 09/11/2015 1:01 PM FINDINGS: Right kidney: There is increased size of simple appearing cyst of the right kidney currently measuring a maximum of 5.8 cm and previously measured a maximum of 4.9 cm. No right renal calculi or hydronephrosis. Left kidney: There appears to be a new simple cyst in the superior pole of the left kidney measuring maximum of 1.5 cm. No left hydronephrosis or visible calculi. Bladder: There is increased and abnormal enlargement of the prostate gland which is also irregular in contour currently measuring 68 cc and previously measuring 22 cc volume. There is increasing mass effect upon the base of the urinary bladder. Prevoid urinary bladder volume is 195 cc and post void residual volume is 130 cc. Bilateral ureteral jets were demonstrated. The urinary bladder appears otherwise unremarkable. IMPRESSION: 1. There is increased and abnormal enlargement of the prostate gland which is also irregular in contour currently measuring 68 cc and previously measuring 22 cc volume. There is increasing mass effect upon the base of the urinary bladder. 2. Prevoid urinary bladder volume is 195 cc and post void residual volume is 130 cc.
== END 2018-03-03 22:07 | disposition home or self-care (01) ==
LOC: ED 12:15
DX: R53.83 Other fatigue (principal); N40.1 Benign prostatic hyperplasia with lower urinary tract symptoms; R35.0 Frequency of micturition; Z95.2 Presence of prosthetic heart valve; Z79.01 Long term (current) use of anticoagulants; Z88.1 Allergy status to other antibiotic agents; F17.210 Nicotine dependence, cigarettes, uncomplicated
CPT/HCPCS: 36415; 76770; 80053; 81003; 81015; 83605; 83735; 84443; 84484; 85025; 87086; 93005; 99283

== ENCOUNTER 2018-03-27 12:52 | Emergency (ER) | payer SELFPAY ==
[2018-03-27 13:02] VITALS: BP 150/80
[2018-03-27] MEDS ORDERED: Acetaminophen TAB* 325 MG PO ONE (13:23)
--- NOTE | 2018-03-27 14:14 | UC ---
Lower Extremity/Ankle HPI - HPI Summary HPI Summary: 77 year old male presents stating he tripped over some boxes at work yesterday and fell landing directly on his left knee. Complains of pain, redness, and swelling over the left knee cap. Pain is worse with ambulating, weight bearing, or movement. Denies numbness or tingling. - History of Current Complaint Chief Complaint: UCLowerExtremity Stated Complaint: KNEE PAIN Time Seen by Provider: 03/27/18 13:55 Hx Obtained From: Patient Onset/Duration: Sudden Onset Severity Initially: Moderate Severity Currently: Moderate Pain Intensity: 9 Aggravating Factor(s): Standing, Ambulation Alleviating Factor(s): Rest Able to Bear Weight: Yes Related History: Occupational Injury Legs: 1 - Erythema, swelling, increased warmth, and tenderness over left knee cap. - Allergies/Home Medications Allergies/Adverse Reactions: Allergies Allergy/AdvReac Type Severity Reaction Status Date / Time cephalexin [From Keflex] AdvReac N/V Verified 01/31/18 17:36 PMH/Surg Hx/FS Hx/Imm Hx Endocrine History: Diabetes, Dyslipidemia Cardiovascular History: Cardiac Disease, Hypertension, Congestive Heart Failure Respiratory History: COPD Other Respiratory History: SATHISH GI/ History: Renal Disease Other GI/ History: Overactive bladder Psychological History: Depression Other History Of: Anticoagulant Therapy - Surgical History Surgical History: Yes Surgery Procedure, Year, and Place: ABDOMINAL HERNIA REPAIR, skull fracture in the . Aortic valve replacement September 2014 - Family History Known Family History: Positive: Cardiac Disease, Hypertension Negative: Diabetes - Social History Occupation: Employed Full-time Lives: Alone Alcohol Use: None Alcohol Amount: SOCIAL Substance Use Type: None Substance Use Comment - Amount & Last Used: pt confused; current substance use is unknown, but no known history Smoking Status (MU): Light Every Day Tobacco Smoker Type: Cigars Amount Used/How Often: 2-3 CIGARS/DAY Length of Time of Smoking/Using Tobacco: 57 years Have You Smoked in the Last Year: Yes When Did the Patient Quit Smoking/Using Tobacco: 2014 Household Exposure Type: Cigarettes - Immunization History Most Recent Influenza Vaccination: fall 2016 Most Recent Tetanus Shot: 2013 Most Recent Pneumonia Vaccination: 2013 Review of Systems Constitutional: Negative Skin: Other - Erythema over left knee cap Respiratory: Negative Cardiovascular: Negative Gastrointestinal: Negative Motor: Negative Neurovascular: Negative Musculoskeletal: Arthralgia - See HPI Is Patient Immunocompromised?: No All Other Systems Reviewed And Are Negative: Yes Physical Exam Triage Information Reviewed: Yes Appearance: Ill-Appearing - Chronically, Pain Distress - Appears to be in mild- moderate discomfort Vital Signs: Initial Vital Signs Temp 97.8 F 03/27/18 12:56 Pulse 83 03/27/18 12:56 Resp 18 03/27/18 12:56 BP 150/80 03/27/18 12:56 Pulse Ox 98 03/27/18 12:56 Vital Signs Reviewed: Yes Respiratory: Positive: No respiratory distress Cardiovascular: Positive: Pulses Normal, Brisk Capillary Refill Musculoskeletal: Positive: ROM Limited @ - Left knee d/t pain, Edema @ - Over left knee cap, Other: - Signicant tenderness left medial and over left patella Neurological: Positive: Alert Skin: Positive: Other - Area over left patella with significant erythema and swelling. Diagnostics - Radiology No standard instances Xray Interpretation: No Acute Changes Radiology Interpretation Completed By: Radiologist - Order Information: KNEE LEFT 4+ VWS Accession Number: [id number] CPT: 44839 Indication: LEFT knee pain post fall Comparison: January 31, 2018 Technique: LEFT knee: AP, tunnel, crosstable lateral, sunrise views. Report: Mild medial joint compartment joint space narrowing and mild irregularity at the subchondral bone at the medial facet of the undersurface of the patella. Negative for joint effusion, fracture , or malalignment. Moderately severe anterior soft tissue swelling. Superior popliteal fossa vascular clips. IMPRESSION: #. Negative for effusion or fracture. #. Mild osteoarthritis. #. Anterior soft tissue swelling. Lower Extremity Course/Dx - Course Course Of Treatment: 77 year old male with left knee pain s/p trip and fall at work. Exam remarkable for prepatellar eythema, swelling, and tenderness. X-ray negative for fracture. Patient lives alone and appeared to be in significant discomfort with ambulation. Will provide him a short course of narcotic pain medication and follow up with orthopedic surgery. Patient verbalizes understanding and agrees with POC. - Differential Dx/Diagnosis Differential Diagnosis/HQI/PQRI: Bursitis, Contusion, Fracture (Closed), Sprain Provider Diagnoses: Traumatic prepatellar burstits Discharge - Sign-Out/Discharge Documenting (check all that apply): Patient Departure All imaging exams completed and their final reports reviewed: Yes - Discharge Plan Condition: Stable Disposition: HOME Prescriptions: HYDROcodone/ACETAMIN 5-325 MG* [[place] 5-325 TAB*] 1 tab PO Q6H PRN #20 tab MDD 4 PRN Reason: Pain Patient Education Materials: Knee Bursitis (ED) Forms: *Work Release Referrals: Romina Bolden MD [Primary Care Provider] - Gabriela Mladonado MD [Medical Doctor] - 5 Days (Call for appointment.) Additional Instructions: Your Xray of the knee performed in the clinic today was negative for any fracture. I suspect that you have a condition called prepatellar bursitis, swelling of the fluid-filled sac that sits in front of your knee cap. Rest the knee as much as possible. You may walk and bear weight as tolerated. Apply ice to the effected area for 15-20 minutes 3-4 times a day. Keep the leg elevated while sitting to help reduce swelling. Use hydrocodone-acteaminophen 5 mg-325 mg 1 tablet every 6 hours as needed for pain. Follow up with orthopedic surgery within the next 5 days. Please call for appointment. Seek immediate medical attention in the emergency room if you develop fever greater than 100.5 F, have increased pain that is not managed with the pain medication, increased swelling, or you develop any numbness or tingling in the foot or toes. - Billing Disposition and Condition Condition: STABLE Disposition: Home - Attestation Statements Provider Attestation: Per institutional requirements, I have reviewed the chart, however, I was not consulted specifically or made aware of this patient by the midlevel provider. I did not personally evaluate, interact with , or disposition this patient.
--- NOTE | 2018-03-27 14:25 | RAD ---
Indication: LEFT knee pain post fall Comparison: January 31, 2018 Technique: LEFT knee: AP, tunnel, crosstable lateral, sunrise views. Report: Mild medial joint compartment joint space narrowing and mild irregularity at the subchondral bone at the medial facet of the undersurface of the patella. Negative for joint effusion, fracture, or malalignment. Moderately severe anterior soft tissue swelling. Superior popliteal fossa vascular clips. IMPRESSION: #. Negative for effusion or fracture. #. Mild osteoarthritis. #. Anterior soft tissue swelling.
== END 2018-03-27 14:56 | disposition home or self-care (01) ==
LOC: UCEAST 12:52
DX: M70.42 Prepatellar bursitis, left knee (principal); M70.41 Prepatellar bursitis, right knee
CPT/HCPCS: 99212; A9270-GY; G0463

== ENCOUNTER 2018-06-14 18:52 | Emergency (ER) | payer BC, MEDICARE ==
--- NOTE | 2018-06-14 19:21 | ED ---
Respiratory - HPI Summary HPI Summary: 78 yo BM with MMP, asthma p/w URI sx of nasal congestion, cough with white sputum, wheezing at night with mild SOB x 2 weeks, not improving. Denies f/c - History of Current Complaint Chief Complaint: UCRespiratory Stated Complaint: COUGH Time Seen by Provider: 06/14/18 18:56 Hx Obtained From: Patient Onset/Duration: Lasting Days Initial Severity: Moderate Current Severity: Moderate Pain Intensity: 0 Character: Wheezing Sputum Amount: Moderate Sputum Color: White Aggravating Factor(s): Nothing Alleviating Factor(s): Nothing Associated Signs and Symptoms: Negative - Allergy/Home Medications Allergies/Adverse Reactions: Allergies Allergy/AdvReac Type Severity Reaction Status Date / Time cephalexin [From Keflex] AdvReac N/V Verified 06/14/18 18:58 PMH/Surg Hx/FS Hx/Imm Hx Previously Healthy: Yes Endocrine/Hematology History: Reports: Hx Anticoagulant Therapy, Hx Blood Transfusions, Hx Diabetes - type 2 dm Denies: Hx Thyroid Disease, Hx Unexplained Bleeding Cardiovascular History: Reports: Hx Congestive Heart Failure, Hx Coronary Artery Disease, Hx Hypercholesterolemia, Hx Hypertension, Hx Valvular Heart Disease - aortic valve replacement Denies: Hx Auto Implanted Cardiovert Defib, Hx Congenital Heart Disease, Hx Myocardial Infarction, Hx Pacemaker/ICD, Hx Syncope Comment Only: Other Cardiovascular Problems/Disorders - AORTIC STENOSIS Respiratory History: Reports: Hx Asthma, Hx Chronic Obstructive Pulmonary Disease (COPD), Hx Sleep Apnea Comment Only: Other Respiratory Problems/Disorders - SOB GI History: Denies: Hx Ulcer Comment Only: Other GI Disorders - HERNIA REPAIR History: Reports: Hx Benign Prostatic Hyperplasia, Hx Chronic Renal Failure - CKD stage 3, Hx Renal Disease - RENAL FUNCTION DUE TO DIABETES, Other Problems/Disorders - chronic renal insufficiency Denies: Hx Dialysis Musculoskeletal History: Reports: Hx Back Problems, Hx Gout, Other Musculoskeletal History - leg and foot cramps Denies: Hx Arthritis, Hx Osteoporosis Sensory History: Reports: Hx Contacts or Glasses Denies: Hx Eye Injury, Hx Glaucoma, Hx Deafness, Hx Hearing Aid, Hx Hearing Problem Opthamlomology History: Reports: Hx Contacts or Glasses Denies: Hx Eye Injury, Hx Glaucoma Neurological History: Reports: Hx Transient Ischemic Attacks (TIA) Denies: Hx Dementia, Hx Developmental Delay, Hx Migraine, Hx Seizures, Hx Spinal Cord Injury Psychiatric History: Reports: Hx Anxiety Denies: Hx Attention Deficit Hyperactivity Disorder, Hx Eating Disorder, Hx Depression, Hx Panic Disorder, Hx Post Traumatic Stress Disorder, Hx Inpatient Treatment, Hx Community Mental Health Tx, Hx Schizophrenia, Hx Bipolar Disorder , Hx Suicide Attempt, Hx of Violent Episodes Against Others, Hx Substance Abuse , Other Psychiatric Issues/Disorders - Surgical History Surgery Procedure, Year, and Place: ABDOMINAL HERNIA REPAIR, skull fracture in the . Aortic valve replacement September 2014 Hx Anesthesia Reactions: No - Immunization History Date of Tetanus Vaccine: unknown Date of Influenza Vaccine: None Infectious Disease History: No Infectious Disease History: Denies: Hx Clostridium Difficile, Hx Hepatitis, Hx Human Immunodeficiency Virus (HIV), Hx of Known/Suspected MRSA, Hx Shingles, Hx Tuberculosis, Hx Known/ Suspected VRE, Hx Known/Suspected VRSA, History Other Infectious Disease, Traveled Outside the [place] in Last 30 Days - Family History Known Family History: Positive: Cardiac Disease, Hypertension Negative: Diabetes - Social History Alcohol Use: None Alcohol Amount: SOCIAL Hx Substance Use: No Substance Use Type: Reports: None Substance Use Comment - Amount & Last Used: pt confused; current substance use is unknown, but no known history Hx Tobacco Use: Yes Smoking Status (MU): Light Every Day Tobacco Smoker Type: Cigars Amount Used/How Often: 1 CIGARS/DAY Length of Time of Smoking/Using Tobacco: 57 years Have You Smoked in the Last Year: Yes Review of Systems Constitutional: Negative Eyes: Negative ENT: Negative Cardiovascular: Negative Positive: Shortness Of Breath, Cough Gastrointestinal: Negative Genitourinary: Negative Musculoskeletal: Negative Skin: Negative Neurological: Negative Psychological: Normal All Other Systems Reviewed And Are Negative: Yes Physical Exam - Summary Physical Exam Summary: Vital Signs Reviewed: Yes General: fatigue Skin: Positive: Warm Head/Face: Positive: Normal Head/Face Inspection Eyes: Positive: Normal ENT: Positive: Normal ENT inspection Neck: Positive: Supple Respiratory/Lung Sounds: Positive: Clear to Auscultation Cardiovascular: Positive: Normal, RRR, S1, S2 Abdomen Description: Positive: Nontender Musculoskeletal: Positive: Normal Neurological: Positive: Normal Psychiatric: Positive: Normal, Affect/Mood Appropriate Triage Information Reviewed: Yes Vital Signs On Initial Exam: Initial Vitals Temp Pulse Resp BP Pulse Ox 37.1 C 65 18 154/79 97 06/14/18 19:00 06/14/18 19:00 06/14/18 19:00 06/14/18 19:00 06/14/18 19:00 Vital Signs Reviewed: Yes Diagnostics - Vital Signs Vital Signs Temp Pulse Resp BP Pulse Ox 06/14/18 19:00 37.1 C 65 18 154/79 97 - Laboratory Lab Statement: Any lab studies that have been ordered have been reviewed, and results considered in the medical decision making process. Disposition - Course Assessment/Plan: URI with cough - CXR reveals increased density in RLL and right perihilar region. after coming back from XR pt c/o of increasing chills, SOB and fatigue. VS redone-SBP 160, O2 sat fluctuates fom high 80's to 94-96% when not inspiring deeply. When advised to go to ED given his current sx and co- morbidities having no one at home to take care of him but pt declines to go to ER. Administered duoneb, Prednisone 20mg and started on azithromycin 500mg in UC. Rest of prednisone to be finished- 20mg po qd x 4 more days and Azithromycin 250mg po qd x 4 more days. Albuterol 2 puffs q6hrs INH as needed. Advised to GO TO ED IF in spite of on meds pt feels worse. - Diagnoses Provider Diagnoses: URI (upper respiratory infection), Bronchitis, Bronchopneumonia Discharge - Sign-Out/Discharge Documenting (check all that apply): Patient Departure All imaging exams completed and their final reports reviewed: Yes - Discharge Plan Condition: Stable Disposition: HOME Patient Education Materials: Asthma (ED), Acute Bronchitis (ED), Wheezing (ED) Referrals: Romina Bolden MD [Primary Care Provider] - Additional Instructions: Take rest of medication as directed GO TO ED if symptoms worsen - Billing Disposition and Condition Condition: STABLE Disposition: Home
[2018-06-14] MEDS ORDERED: Albuterol/Ipratropium NEB.SOL* Albuterol 2.5 MG/Ipratropium 0.5 MG 3 ML ONE (20:05)
[2018-06-14] MEDS ORDERED: predniSONE TAB* 20 MG PO ONE ×2 (20:14→20:18)
[2018-06-14] MEDS ORDERED: Albuterol/Ipratropium NEB.SOL* Albuterol 2.5 MG/Ipratropium 0.5 MG 3 ML INH ONE (20:14)
[2018-06-14] MEDS ORDERED: Azithromycin TAB* 250 MG PO ONE ×2 (20:15)
[2018-06-14 20:55] VITALS: BP 160/86
[2018-06-14] MEDS ORDERED: guaiFENesin LIQ* 100 MG/5 ML UDC PO ONE ×2 (21:00→21:15)
[2018-06-14] MEDS ORDERED: Albuterol HFA INHALER* 8 gm MDI INH ONE (21:06)
== END 2018-06-14 21:40 | disposition home or self-care (01) ==
LOC: UCEAST 18:52
DX: J06.9 Acute upper respiratory infection, unspecified (principal); J40 Bronchitis, not specified as acute or chronic; J18.0 Bronchopneumonia, unspecified organism; E11.9 Type 2 diabetes mellitus without complications; I11.0 Hypertensive heart disease with heart failure; I50.9 Heart failure, unspecified; I25.10 Atherosclerotic heart disease of native coronary artery without angina pectoris; J44.9 Chronic obstructive pulmonary disease, unspecified; J45.909 Unspecified asthma, uncomplicated; F17.210 Nicotine dependence, cigarettes, uncomplicated; Z88.1 Allergy status to other antibiotic agents
CPT/HCPCS: 71046; 99213; A9270-GY; G0463; J7512

== ENCOUNTER 2018-08-24 08:12 | Emergency (ER) | payer BC, MEDICARE ==
[2018-08-24 08:29] VITALS: BP 161/66
--- NOTE | 2018-08-24 09:28 | UC ---
Throat Pain/Nasal [place] HPI - HPI Summary HPI Summary: 4 days progressive sinus pressure, drainage, fullness. Pt has used OTC vicks nasal spray yesterday with little improvement. ears popping +PND no fever, chills + fatigue mild sore throat medications reviewed this visit - History of Current Complaint Chief Complaint: UCGeneralIllness Stated Complaint: SINUS ISSUE Time Seen by Provider: 08/24/18 09:22 Hx Obtained From: Patient Pain Intensity: 5 - Allergies/Home Medications Allergies/Adverse Reactions: Allergies Allergy/AdvReac Type Severity Reaction Status Date / Time cephalexin [From Keflex] AdvReac N/V Verified 08/24/18 08:30 PMH/Surg Hx/FS Hx/Imm Hx Previously Healthy: Yes Cardiovascular History: Hypertension Other History Of: Anticoagulant Therapy - Surgical History Surgical History: Yes Surgery Procedure, Year, and Place: ABDOMINAL HERNIA REPAIR, skull fracture in the . Aortic valve replacement September 2014 - Family History Known Family History: Positive: Cardiac Disease, Hypertension Negative: Diabetes - Social History Occupation: Employed Part-time Lives: With Family Alcohol Use: None Alcohol Amount: SOCIAL Substance Use Type: None Substance Use Comment - Amount & Last Used: pt confused; current substance use is unknown, but no known history Smoking Status (MU): Light Every Day Tobacco Smoker Type: Cigars Amount Used/How Often: 1 CIGARS/DAY Length of Time of Smoking/Using Tobacco: 57 years Have You Smoked in the Last Year: Yes When Did the Patient Quit Smoking/Using Tobacco: June. 2014 Household Exposure Type: Cigarettes - Immunization History Most Recent Influenza Vaccination: fall 2016 Most Recent Tetanus Shot: 2013 Most Recent Pneumonia Vaccination: 2013 Review of Systems All Other Systems Reviewed And Are Negative: Yes Constitutional: Positive: Fatigue ENT: Positive: Ear Ache, Nasal Discharge, Sinus Congestion, Sinus Pain/ Tenderness Is Patient Immunocompromised?: No Physical Exam - Summary Physical Exam Summary: Vital Signs Reviewed: Yes A+Ox3, no distress Eyes: Conjunctiva Clear, WILLY. EOM intact and full ENT: Hearing grossly normal TM x 2 visualized - slight fluid right ear, turbinates inflammed and boggy, + PND, + TTP max sinuses L>Rmmoist, uvula midline, no exudate, no erythema Neck: Positive: Supple Respiratory: Positive: No respiratory distress, No accessory muscle use + CTA throughout no w/r Cardiovascular: RRR nl s1, s2 no m/r CBT <2 sec abd soft + BS nt/nd no guarding, no distension Musculoskeletal Exam: GARG x 4 without difficulty Strength Intact, ROM Intact Neurological: Positive: Alert, + sensation throughout Psychological: Positive: Normal Response To Family Skin: Positive: no rash, no ecchymosis Triage Information Reviewed: Yes Vital Signs: Initial Vital Signs Temp 97.6 F 08/24/18 08:25 Pulse 71 08/24/18 08:25 Resp 18 08/24/18 08:25 BP 161/66 08/24/18 08:25 Pulse Ox 97 08/24/18 08:25 Throat Pain/Nasal Course/Dx - Course Course Of Treatment: Pt with progressive sinus congestion, frontal headache. exam c/w rhinosinusitis. cautioned phenylepherine spray. flonase. abx. hydrate. humify air. work note - Differential Dx/Diagnosis Provider Diagnosis: Rhinosinusitis Discharge - Sign-Out/Discharge Documenting (check all that apply): Patient Departure All imaging exams completed and their final reports reviewed: No Studies - Discharge Plan Condition: Stable Disposition: HOME Prescriptions: DOXYcycline CAP(*) [DOXYcycline 100MG CAP(*)] 100 mg PO BID #14 cap Fluticasone NASAL SPRAY 50MCG* [Flonase NASAL SPRAY 50MCG*] 2 spray BOTH NARES DAILY #1 btl Patient Education Materials: Rhinosinusitis (ED) Forms: *Work Release Referrals: Romina Bolden MD [Primary Care Provider] - Additional Instructions: - Stay well hydrated. Drink plenty of non-alcoholic, non-caffinated beverages. Take Tylenol 6-8 hours for pain or fever. Take with food. Do NOT take for more than 4-5 days. - These infections are spread by secretions - do NOT share eating or drinking utensils - clean items you share with other people such as cell phones, computer mouse, TV remote, computer tablets,etc. Once you have been antibiotics for 2 days, change your toothbrush and your pillowcase. - get plenty of restful sleep - humidify the air in the room where you sleep - boil water, run a hot steam shower, vaporizer, cups of water by heat register - okay to take over the counter decongestant and cough medication - use prescription nasal spray as prescribed - do not use the over counter nasal spray for more than 3 days in a row - contact your doctor or return with questions or concerns - Billing Disposition and Condition Condition: STABLE Disposition: Home
== END 2018-08-24 09:55 | disposition home or self-care (01) ==
LOC: UCEAST 08:12
DX: J32.9 Chronic sinusitis, unspecified (principal); Z95.2 Presence of prosthetic heart valve; Z79.01 Long term (current) use of anticoagulants; Z88.1 Allergy status to other antibiotic agents; F17.290 Nicotine dependence, other tobacco product, uncomplicated
CPT/HCPCS: 99212; G0463

== ENCOUNTER 2018-09-15 18:05 | Observation (INO) | payer BC ==
[~2018-09-15 18:05] MED LIST: Mouth Piece, Nicotine* 1 EACH CARTRIDGE INH ONE
--- NOTE | 2018-09-15 18:51 | ED ---
HPI Chest Pain - HPI Summary HPI Summary: A 78 y/o male presents to [facility] with a chief complaint of having an episode of chest pain when driving home from work today. He reports that this pain lasted for a little over a minute. At triage he rated his pain as a 0/10 in severity. The patient denies having nausea, dizziness, sweating, abdominal pain, or swelling of his legs. He denies EtOH use, but claims that he smokes cigars. He has a Hx of COPD and CHF. He had an aortic valve replacement in 2014 in [place] and followed up with Dr. Bell. He denies having a stress test done recently. Vital signs while in room HR: 68 bpm, O2 Sat: 97, BP: 161/80 - History of Current Complaint Chief Complaint: EDChestPainROMI Time Seen by Provider: 09/15/18 18:40 Hx Obtained From: Patient Onset/Duration: Started Minutes Ago Timing: Intermittent, Lasting Minutes Initial Severity: Severe Current Severity: None Pain Intensity: 0 Pain Scale Used: 0-10 Numeric Chest Pain Location: Diffuse Chest Pain Radiates: No Character: Other: - severe Aggravating Factor(s): Nothing Alleviating Factor(s): Nothing Associated Signs and Symptoms: Negative: Dizziness, Swelling, Fever, Nausea, Cough, Abdominal Pain, Calf Pain/Swelling - Additional Pertinent History Primary Care Physician: [id number] - Allergy/Home Medications Allergies/Adverse Reactions: Allergies Allergy/AdvReac Type Severity Reaction Status Date / Time cephalexin [From Keflex] AdvReac N/V Verified 09/15/18 18:23 Home Medications: Home Medications Nicotine [Nicotrol Ns] 10 mg BOTH NARES DAILY 09/15/18 [History Confirmed ] Tadalafil (NF) [Adcirca (NF)] 20 mg PO DAILY 09/15/18 [History Confirmed ] amLODIPine TAB* [Norvasc 5 mg TAB*] 10 mg PO DAILY 09/15/18 [History Confirmed 09/15/18] PMH/Surg Hx/FS Hx/Imm Hx Endocrine/Hematology History: Reports: Hx Anticoagulant Therapy, Hx Blood Transfusions, Hx Diabetes - type 2 dm Denies: Hx Thyroid Disease, Hx Unexplained Bleeding Cardiovascular History: Reports: Hx Congestive Heart Failure, Hx Coronary Artery Disease, Hx Hypercholesterolemia, Hx Hypertension, Hx Valvular Heart Disease - aortic valve replacement Denies: Hx Auto Implanted Cardiovert Defib, Hx Congenital Heart Disease, Hx Myocardial Infarction, Hx Pacemaker/ICD, Hx Syncope Comment Only: Other Cardiovascular Problems/Disorders - AORTIC STENOSIS Respiratory History: Reports: Hx Asthma, Hx Chronic Obstructive Pulmonary Disease (COPD), Hx Sleep Apnea Comment Only: Other Respiratory Problems/Disorders - SOB GI History: Denies: Hx Ulcer Comment Only: Other GI Disorders - HERNIA REPAIR History: Reports: Hx Benign Prostatic Hyperplasia, Hx Chronic Renal Failure - CKD stage 3, Hx Renal Disease - RENAL FUNCTION DUE TO DIABETES, Other Problems/Disorders - chronic renal insufficiency Denies: Hx Dialysis Musculoskeletal History: Reports: Hx Back Problems, Hx Gout, Other Musculoskeletal History - leg and foot cramps Denies: Hx Arthritis, Hx Osteoporosis Sensory History: Reports: Hx Contacts or Glasses Denies: Hx Eye Injury, Hx Glaucoma, Hx Deafness, Hx Hearing Aid, Hx Hearing Problem Opthamlomology History: Reports: Hx Contacts or Glasses Denies: Hx Eye Injury, Hx Glaucoma Neurological History: Reports: Hx Transient Ischemic Attacks (TIA) Denies: Hx Dementia, Hx Developmental Delay, Hx Migraine, Hx Seizures, Hx Spinal Cord Injury Psychiatric History: Reports: Hx Anxiety Denies: Hx Attention Deficit Hyperactivity Disorder, Hx Eating Disorder, Hx Depression, Hx Panic Disorder, Hx Post Traumatic Stress Disorder, Hx Inpatient Treatment, Hx Community Mental Health Tx, Hx Schizophrenia, Hx Bipolar Disorder , Hx Suicide Attempt, Hx of Violent Episodes Against Others, Hx Substance Abuse , Other Psychiatric Issues/Disorders - Surgical History Surgery Procedure, Year, and Place: ABDOMINAL HERNIA REPAIR, skull fracture in the . Aortic valve replacement September 2014 Hx Anesthesia Reactions: No - Immunization History Date of Tetanus Vaccine: unknown Date of Influenza Vaccine: None Infectious Disease History: No Infectious Disease History: Denies: Hx Clostridium Difficile, Hx Hepatitis, Hx Human Immunodeficiency Virus (HIV), Hx of Known/Suspected MRSA, Hx Shingles, Hx Tuberculosis, Hx Known/ Suspected VRE, Hx Known/Suspected VRSA, History Other Infectious Disease, Traveled Outside the [place] in Last 30 Days - Family History Known Family History: Positive: Cardiac Disease, Hypertension Negative: Diabetes - Social History Alcohol Use: None Alcohol Amount: SOCIAL Hx Substance Use: No Substance Use Type: Reports: None Substance Use Comment - Amount & Last Used: pt confused; current substance use is unknown, but no known history Hx Tobacco Use: Yes Smoking Status (MU): Light Every Day Tobacco Smoker Type: Cigars Amount Used/How Often: 1 CIGARS/DAY Length of Time of Smoking/Using Tobacco: 57 years Have You Smoked in the Last Year: Yes Review of Systems Negative: Fever, Skin Diaphoresis 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: Shortness Of Breath Negative: Abdominal Pain, Nausea Negative: Edema Neurological: Negative - dizziness All Other Systems Reviewed And Are Negative: Yes Physical Exam - Summary Physical Exam Summary: Appearance: Well appearing, no pain distress Skin: warm, dry, reflects adequate perfusion Head/face: normal Eyes: EOMI, WILLY ENT: normal Neck: supple, non-tender Respiratory: bilateral wheezing Cardiovascular: RRR, pulses symmetrical Abdomen: non-tender, soft Musculoskeletal: normal, strength/ROM intact Neuro: normal, sensory motor intact, A&Ox3 Triage Information Reviewed: Yes Vital Signs On Initial Exam: Initial Vitals Temp Pulse Resp BP Pulse Ox 98.6 F 69 16 168/89 97 09/15/18 18:18 09/15/18 18:18 09/15/18 18:18 09/15/18 18:18 09/15/18 18:18 Vital Signs Reviewed: Yes Diagnostics - Vital Signs Vital Signs Temp Pulse Resp BP Pulse Ox 09/15/18 18:18 98.6 F 69 16 168/89 97 - Laboratory Result Diagrams: 09/15/18 19:42 09/15/18 19:42 Lab Statement: Any lab studies that have been ordered have been reviewed, and results considered in the medical decision making process. - Radiology CXR Radiology Interpretation Completed By: ED Physician Summary of Radiographic Findings: No acute process. Pending official imaging report. - EKG 18:30 Cardiac Rate: NL - 70 bpm EKG Rhythm: Sinus Rhythm Summary of EKG Findings: Normal sinus rhythm at 70 bpm, no acute changes Chest Pain Course/Dx - Course Course Of Treatment: A 78 y/o male presents to [facility] with a chief complaint of having an episode of chest pain when driving home from work today. He reports that this pain lasted for a little over a minute. The physical exam revealed bilateral wheezing. EKG at 18:30 showed normal sinus rhythm at 70 bpm, no acute changes. CXR was negative. In the ED course the patient was given Duoneb INH, Aspirin PO and Solu-Medrol IV. Bloodwork and chemistries obtained. Case discussed with Dr. Geiger, hospitalist, who accepted the patient for admission. The patient is agreeable with this plan. - Chest Pain Differential Diagnosis/HQI/PQRI: Acute [place], Angina, Chest Wall, Lower Respiratory Infection - Diagnoses Provider Diagnoses: Chest pain, rule out acute myocardial infarction, COPD exacerbation - Provider Notifications Discussed Care Of Patient With: Florencia Geiger Time Discussed With Above Provider: 20:26 Instructed by Provider To: Admit As Inpatient Discharge - Sign-Out/Discharge Documenting (check all that apply): Patient Departure - admit Patient Received Moderate/Deep Sedation with Procedure: No - Discharge Plan Condition: Fair Disposition: ADMITTED TO [facility] Referrals: Romina Bolden MD [Primary Care Provider] - - Billing Disposition and Condition Condition: FAIR Disposition: Admitted to [facility] - Attestation Statements Document Initiated by Clive: Yes Documenting Scribe: Luis Enrique Bright Provider For Whom Scribe is Documenting (Include Credential): Ruiz Graham MD Scribe Attestation: ILuis Enrique, scribed for Ruiz Graham MD on 09/15/18 at 2040. Scribe Documentation Reviewed: Yes Provider Attestation: The documentation as recorded by the Luis Enrique camargo accurately reflects the service I personally performed and the decisions made by Ruiz jim MD Status of Scribe Document: Viewed
[2018-09-15] MEDS ORDERED: methylPREDNISolone 125 MG* 2 ML VIAL IV ONE (18:54)
[2018-09-15] MEDS ORDERED: Albuterol/Ipratropium NEB.SOL* Albuterol 2.5 MG/Ipratropium 0.5 MG 3 ML INH ONE (18:54)
[2018-09-15] MEDS ORDERED: Aspirin 81 mg CHEW TAB* 81 MG TAB.CHEW PO ONE (18:54)
[2018-09-15 19:49] LABS: ABS Basophils 0.1 10^3/ul (0-0.2); ABS Eosinophils 0.2 10^3/ul (0-0.6); ABS Lymphocytes 2.7 10^3/ul (1.0-4.8); ABS Monocytes 0.7 10^3/ul (0-0.8); ABS Neutrophils 4.3 10^3/ul (1.5-7.7); ABS Nucleated RBC 0 10^3/ul; Eosinophil % 3.1 %; Hematocrit 34 % (36-46); Hemoglobin 11.3 g/dL (14.0-18.0); Lymphocyte % 33.6 %; Mean Corpuscular HGB Conc 34 g/dL (31-36); Mean Corpuscular Hemoglobin 30 pg (27-31); Mean Corpuscular Volume 90 fL (80-94); Mean Platelet Volume 6.7 fL (7.4-10.4); Nucleated Red Blood Cells % 0.1; Platelet Count 259 10^3/uL (150-450); Red Blood Count 3.75 10^6 /uL (4.18-5.48); Red Cell Distribution Width 18 % (10.5-15)
[2018-09-15 19:58] LABS: Activated Partial Thrombo Time 32.9 seconds (26.0-36.3); INR 0.91 (0.77-1.02)
[2018-09-15 20:07] LABS: Albumin 3.8 g/dL (3.2-5.2); Albumin/Globulin Ratio 1.4 (1-3); BUN/Creatinine Ratio 11.9 (8-20); Calcium 8.3 mg/dL (8.6-10.3); EGFR African American 30.3 (>60); Globulin 2.7 g/dL (2-4); Total Bilirubin 0.4 mg/dL (0.2-1.0); Total Protein 6.5 g/dL (6.4-8.9)
[2018-09-15 20:09] LABS: Troponin I 0.01 ng/mL (<0.04)
[2018-09-15] MEDS ORDERED: tiZANidine TAB* 2 MG PO PRN (20:51)
[2018-09-15] MEDS ORDERED: Dextrose 50% Syringe 50 ML* 25 GM/50 ML SYRINGE IV PUSH PRN (21:06)
[2018-09-15] MEDS ORDERED: Acetaminophen TAB* 325 MG PO PRN (21:11)
[2018-09-15] MEDS ORDERED: hydrALAZINE IV* 20 MG/ML VIAL IV SLOW PU PRN (21:39)
[2018-09-15] MEDS: Heparin VIAL(*) 5000 UNITS/ML VIAL (FIVE THOUSAND) SUBCUT SCH (22:27)
--- NOTE | 2018-09-15 23:37 | HP ---
CC: Dr. Bolden; Dr. Bell HISTORY AND PHYSICAL: DATE OF ADMISSION: 09/15/18 TIME OF EVALUATION: 8:50 p.m. PRIMARY CARE PROVIDER: Dr. Bolden. FICTION AND NONFICTION PROSE WRITER: Dr. Bell. CHIEF COMPLAINT: Chest pain. HISTORY OF PRESENT ILLNESS: Mr. Galvin is a 78-year-old gentleman with past medical history of coron ryan artery disease; status post CABG, aortic stenosis; status post aortic valve replacement, hyperlip idemia, diastolic CHF, type 2 diabetes, CKD stage 4, anemia of renal disease, hypertension, TIA who p resented to the emergency room with complaints of chest pain. The patient states he was in his usual state of health and he was driving when he experienced sudden onset of right-sided chest pain that he rates at 8/10 lasting for a minute. He states that he cannot characterize the pain, but it was very intense; albeit, brief, but he was concerned because of his h istory of heart surgery, the reason why he came to the emergency room for further evaluation. He states he never had chest pain like this before and it was only one episode. He has been chest pa in free since then. He denies shortness of breath, but as per ED nurse's note, he was a little short of breath and wheezy when he got to the emergency room. He denies nausea, vomiting, diaphoresis, dizziness, lightheadedness, diarrhea, or urinary complaints. PAST MEDICAL HISTORY: 1. Coronary artery disease, status post CABG with reversed SVG/RCA, with aortic valve replacement wi th Xavier Magna pericardial valve in September [address] Walsh at [facility]. The pat ient follows with Dr. Bell. 2. Hypertension. 3. Hyperlipidemia. 4. BPH. 5. CKD stage 4. 6. COPD. 7. TIA. 8. Prior history of alcoholism. 9. Anemia of renal disease. PAST SURGICAL HISTORY: 1. Status post CABG and AVR in 2014 as above. 2. Status post cataract surgeries. MEDICATIONS: 1. Amlodipine 10 mg p.o. daily. 2. Aspirin 81 mg p.o. daily. 3. Atorvastatin 80 mg p.o. daily. 4. Darifenacin 15 mg p.o. daily. 5. Fluticasone nasal spray 50 mcg, 2 sprays to both nares daily. 6. Mirabegron 25 mg p.o. daily. 7. Nicotine spray 10 mg to both nares daily. 8. Tadalafil 20 mg p.o. daily. 9. Tizanidine 2 mg p.o. b.i.d. as needed for cramping and muscle spasms. ALLERGIES: With CEPHALEXIN, the patient had nausea and vomiting. FAMILY HISTORY: Father had emphysema and mother had liver disease. SOCIAL HISTORY: The patient is a smoker of 1 to 2 cigars a day. He quit cigarettes in 2014. There is a mention of alcoholism on his record, but the patient has stopped drinking since 2016. No histor y of drug use. 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 Surrogate decision maker is his Loy sales, phone number is [phone]. REVIEW OF SYSTEMS: A 14-point review of systems was performed and all the pertinent negatives and po sitives are as in the HPI. PHYSICAL EXAMINATION GENERAL: The patient is a pleasant elderly gentleman, sitting up on the ED stretcher, in no acute di stress. VITAL SIGNS: Temperature 98.6, heart rate is 81, respiratory rate is 16, oxygen saturation is 100% o n room air, blood pressure is 161/80. HEENT: Pupils are equal. Moist mucous membranes. CHEST: Breath sounds bilaterally with no added sounds. CVS: Normal S1 and S2. Regular rate and rhythm with a systolic murmur. ABDOMEN: Soft. Bowel sounds are present. EXTREMITIES: There is trace pretibial edema. NEUROLOGIC: He is alert and oriented x3. Able to move all 4 extremities. DIAGNOSTIC STUDIES/LAB DATA: The patient had a CBC that showed a WBC of 8, hemoglobin of 11.3, jovi tocrit of 34, platelets of 259, 52% neutrophils. INR is 0.91, APTT is 32.9. Chemistry showed a sodi um of 138, potassium of 5, chloride of 111, bicarb of 21, BUN of 30, creatinine of 2.5, glucose of 96 , calcium of 8.3. LFTs were normal. First troponin was 0.01. BNP is 136. EKG done on 09/15/18 at 6:30 p.m. shows sinus rhythm with a first-degree heart block. No ST-T change s. No significant change when compared to his prior EKG from February 2018. Chest x-ray was not yet officially read, but to my read, it shows no acute pulmonary disease, only si gns of prior sternotomy. ASSESSMENT AND PLAN: Mr. Segura is a 78-year-old male with a past medical history of coronary arter y disease, aortic stenosis; status post coronary artery bypass grafting and aortic valve replacement, hypertension, hyperlipidemia, chronic obstructive pulmonary disease, type 2 diabetes, chronic kidney disease stage 4, prior transient ischemic attack who presented to the emergency room after 1 brief e pisode of severe right-sided chest pain. 1. Chest pain. The patient has no history of recent traveling or other risk factors for pulmonary e mbolism. I am going to check a D-dimer. With his cardiac history, he will be admitted to telemetry. We will check serial troponins. He will have an echocardiogram and if acute coronary syndrome is r uled out, he will undergo an exercise nuclear stress test. At this time, the patient denies chest pa in or shortness of breath. We are going to continue his aspirin and atorvastatin. As per Dr. Sara honeycutt's last note, his beta dejah was discontinued due to erectile dysfunction. 2. Hypertension. His blood pressure is on the higher side at this time. I will continue his amlodi pine and he will have hydralazine as needed if his systolic blood pressure goes above 180. 3. Type 2 diabetes. The patient is off medications. He will be on a consistent carb diet and we wi ll check fingersticks with lispro sliding scale. 4. DVT prophylaxis. The patient has a score of 3 on DVT Prophylaxis Risk Assessment Guide and he wi ll be started on subcutaneous heparin. 5. Code status is full. TIME SPENT: Approximately 50 minutes were spent in patient interview, medical records review, and ph ysical examination to complete the admission. More than half this time was spent [id number] with t zahira patient in coordination of care. [id number]/[facility] #: [id number]
[2018-09-15] MEDS ORDERED: Nicotine Inhaler* 10 MG AMP INH PRN (23:39)
[2018-09-15] MEDS ORDERED: Mouth Piece, Nicotine* 1 EACH CARTRIDGE INH ONE (23:56)
[2018-09-16] MEDS: Heparin VIAL(*) 5000 UNITS/ML VIAL (FIVE THOUSAND) SUBCUT SCH ×2 (06:07→14:13)
[2018-09-16] MEDS ORDERED: DARIFENACIN 15 MG PO SCH (09:00)
[2018-09-16] MEDS ORDERED: Mirabegron (NF) 25 MG TAB PO SCH (09:00)
[2018-09-16] MEDS ORDERED: TADALAFIL 20 MG PO SCH (09:00)
[2018-09-16] MEDS ORDERED: Fluticasone NASAL SPRAY 50MCG* 16 gm SPRAY BTL BOTH NARES SCH (09:00)
[2018-09-16] MEDS ORDERED: Atorvastatin* 80 MG TAB PO SCH (09:00)
[2018-09-16] MEDS ORDERED: amLODIPine TAB* 5 MG PO SCH (09:00)
[2018-09-16] MEDS ORDERED: Aspirin EC TAB* 81 MG TAB.EC PO SCH (09:00)
[2018-09-16] MEDS ORDERED: NICOTINE BOTH NARES SCH (09:00)
[2018-09-16] MEDS: Insulin LISPRO* 1 UNITS UNIT SUBCUT SCH ×2 (09:40→13:56)
[2018-09-16] MEDS ORDERED: Regadenoson* 0.4 MG/5 ML SYRINGE ONE (10:46)
[2018-09-16 12:54] VITALS: BP 164/76
--- NOTE | 2018-09-16 14:41 | ECHO ---
Patient: BHAVNA MANSFIELD [facility] Rec#: [id number] : 1940 Date: 09/16/2018 Age: 78y Height: 170 cm / 66.9 in Weight: 73 kg / 160.9 lbs Sex: M BSA: 1.84 Room#: [facility] Admit Date#: 09/15/2018 Type: Inpatient Referring: Florencia Wilkerson MD Reading: Mykel Arndt DO Framer: Sheeba Valerio RDCS CC: Ambika Bell MD CC: Romina Bolden MD Transthoracic Echocardiogram Indication: Chest Pain BP: 159/65 HR: 66 Rhythm: NSR Findings History: CAD, CABG, AVR (porcine) Xavier Magna pericardial valve, HLD, DM, HTN, diastolic CHF, TIA, smoker (cigars), CKD. Technical Comments: The study quality is fair. Completed at 1430. Left Ventricle: The left ventricular chamber size is normal. Moderate concentric left ventricular hypertrophy is observed. Global left ventricular wall motion and contractility are within normal limits. There is normal left ventricular systolic function. The estimated ejection fraction is greater than 65%. Ventricular septal wall motion has a post-operative appearance. Abnormal left ventricular diastolic function is observed. Left Atrium: The left atrium is moderately dilated. Right Ventricle: Moderator Band present. The right ventricle is mildly dilated. The right ventricular global systolic function is normal. Right Atrium: The right atrium is mildly dilated. Aortic Valve: The mean gradient of the aortic valve is 19 mmHg. Dimensionless index is 0.44 and doppler profile is triangular and early peaking. Echo 03/2017 mean gradient was 16.8 mmHg A porcine bio-prosthetic aortic valve is present. The prosthetic aortic valve leaflets are normal. The bio-prosthetic aortic valve appears to be functioning normally. Mitral Valve: There is mitral annular calcification. The mitral valve leaflets are mildly thickened. There is mild mitral regurgitation. There is no evidence of mitral stenosis. Tricuspid Valve: The tricuspid valve leaflets are normal. There is mild tricuspid regurgitation. No pulmonary hypertension is noted. There is no tricuspid stenosis. Pulmonic Valve: The pulmonic valve appears normal. There is a trace pulmonic regurgitation. There is no pulmonic stenosis. Pericardium: There is no significant pericardial effusion. Aorta: There is mild dilatation of the ascending aorta. There is no dilatation of the aortic arch. The aortic root is normal in size. Pulmonary Artery: The main pulmonary artery appears normal. Venous: The inferior vena cava appears normal in size. There is a greater than 50% respiratory change in the inferior vena cava dimension. Conclusions The left ventricular chamber size is normal. Moderate concentric left ventricular hypertrophy is observed. There is normal left ventricular systolic function. The estimated ejection fraction is 65-70% Ventricular septal wall motion has a post-operative appearance, otherwise global left ventricular wall motion and contractility are within normal limits. The left atrium is moderately dilated. The right ventricle is mildly dilated. The right ventricular global systolic function is normal. The bio-prosthetic aortic valve appears to be functioning normally. There is mild dilatation of the ascending aorta. Compared to prior study from 03/2017, ascending aorta previously measured normal Measurements Name Value Normal Range RVIDd (AP) 2D 2.9 cm (0.9 - 2.6) RVDdMajor (2D) 4.7 cm (2.2 - 4.4) RAd ISD 4CH 5.2 cm (3.4 - 4.9) RA (A4C)W 5 cm (2.9 - 4.6) IVSd (2D) 1.5 cm (0.6 - 1) LVPWd (2D) 1.5 cm (0.6 - 1) LVIDd (2D) 4.1 cm (3.6 - 5.4) LVIDs (2D) 2.8 cm - LV FS (2D) 33 % (25 - 45) Aortic Annulus 2.3 cm (1.4 - 2.6) Ao root diameter (2D) 3.1 cm (2.1 - 3.5) Ascending Ao 4.1 cm (2.1 - 3.4) Aortic arch 2.4 cm (1.8 - 3.4) LA dimension (AP) 2D 5 cm (2.3 - 3.8) LAd ISD 4CH 5.2 cm (2.9 - 5.3) LA ISD 4CH W 5.1 cm (2.5 - 4.5) Name Value Normal Range MV E-wave Vmax 0.9 m/sec - MV deceleration time 310 msec - MV A-wave Vmax 1.3 m/sec - MV E:A ratio 0.7 ratio - LV septal e' Vmax 0.04 m/sec - LV lateral e' Vmax 0.06 m/sec - LV E:e' septal ratio 22.5 ratio - LV E:e' lateral ratio 15 ratio - Name Value Normal Range AV Vmax 3.5 m/sec - AV VTI 68 cm - AV peak gradient 48 mmHg - AV mean gradient 19 mmHg - LVOT diameter 2 cm - LVOT Vmax 1.2 m/sec - LVOT VTI 30 cm - LVOT peak gradient 6 mmHg - LVOT mean gradient 4 mmHg - DOI (VTI) 0.44 ratio - KENDALL (continuity Vmax) 1.1 cm2 - KENDALL (continuity VTI) 1.4 cm2 - MICHAEL Vmax 0.7 m/sec - Name Value Normal Range TV Vmax 1.9 m/sec - IVC diameter 1.9 cm - Name Value Normal Range PV Vmax 1.6 m/sec - PV peak gradient 11 mmHg -
--- NOTE | 2018-09-16 22:59 | DS ---
CC: Dr. Florencia Solis; Dr. Silverio Tello; Dr. Ruiz Graham; Dr. Romina Bolden * DISCHARGE SUMMARY: DATE OF ADMISSION: DATE OF DISCHARGE: 09/16/18 DISCHARGE CONDITION: Stable. DISCHARGE DISPOSITION: Home. DISCHARGE DIAGNOSES: Are as follows: 1. Atypical chest pain, right sided, myocardial infarction and pulmonary embolism ruled out. 2. Hypertension, history of, uncontrolled; lisinopril added to new regimen. 3. Diabetes, history of. DISCHARGE MEDICATIONS: Are as follows: 1. Tylenol 650 mg p.o. q. 6 p.r.n. 2. Amlodipine 10 mg p.o. daily. 3. Aspirin 81 mg p.o. daily. 4. Atorvastatin 80 mg p.o. daily. 5. Darifenacin hydrobromide 15 mg p.o. daily. 6. Fluticasone nasal spray 2 sprays both nares daily. 7. Mirabegron 25 mg p.o. daily. 8. Nicotine spray 10 mg to both nares daily. 9. Tadalafil 20 mg p.o. daily. 10. Tizanidine 2 mg p.o. b.i.d. 11. Lisinopril 40 mg p.o. daily. HISTORY OF PRESENT ILLNESS/HOSPITAL COURSE: The patient is a 78-year-old -[place] gentleman with past medical history of CAD status post CABG, aortic stenosis status post aortic valve replacement and hyperlipidemia who presented on 09/15/18 for chest pain where he mentioned that he was in his usual state of health when he suddenly experienced his chief complaint and he rated this as 8/10 lasting a minute; however, patient was unable to characterize his pain, but mentioned that it was very intense. He was admitted for chest pain observation and had been ruled out for both venous thromboembolism with a normal D-dimer along with ACS being ruled out with negative troponins x3. He underwent a Lexiscan stress test, which suggests the low risk probability with noted septal dyskinesia and small fixed defect of the lateral wall that was suggestive of previous infarct. Again, this was clarified with patient and nothing new was found. 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 The patient had been advised to follow up and/or call his PCP within 3 days post discharge and that if his symptoms resume or develop new ones or feel unwell for any reason to call his PCP first. If his PCP cannot entertain him due to scheduling issues alone, he was advised to call [facility] if the issue is considered nonemergent. He was once again informed that his stress test was found to be low risk and only showed an old infarct/heart attack. He was advised to call my office regarding any questions, concerns, or further clarifications regarding his discharge plans and/or prescriptions and to take his medications as prescribed. REVIEW OF SYSTEMS: The patient currently denies any headaches, dizziness, fevers, chills, nausea, vomiting, chest pain, shortness of breath, increased cough and/or sputum production, abdominal pain, diarrhea, constipation, pain and /or increased frequency in urination, myalgias, arthralgias, throat pain, or new skin lesions. The rest of the 14-point review of systems are otherwise unremarkable. PHYSICAL EXAMINATION: Reveals the most recent vitals signs of records with blood pressure of 164/76, 74 beats per minute heart rate, 16 per minute respiratory rate, saturating of 98% room air, 98.3 degrees Fahrenheit. General Appearance: The patient is awake, alert, and oriented x3, not in any acute distress. HEENT: Normocephalic, atraumatic. PERRLA. Extraocular muscles intact. Negative for icterus. Moist oral mucosa. Negative throat erythema. Neck is soft, supple with no cervical lymphadenopathy. No JVD. Heart: S1, S2 within normal limits. Regular rate and rhythm. No murmurs, rubs, or gallops. Chest: Clear to auscultation bilaterally. Good air entry. No wheezes, rales, or rhonchi. Abdomen is soft, nondistended, nontender. Normoactive bowel sounds x4 quadrants. Extremities: No cyanosis, clubbing, or edema. Psychiatric: No active psychosis, depression, suicidal or homicidal ideation. Skin is warm to touch. TIME SPENT: The total time spent evaluating the patient, reviewing pertinent data, and appropriate documentation is 40 minutes. [id number]/[facility] #: [id number] IGNACIO
== END 2018-09-16 16:30 | disposition home or self-care (01) ==
LOC: ED 18:05 → MEDTELE 20:48
PROVIDERS: ADMIT Internal Medicine; ATTEND Student in an Organized Health Care Education/Training Program
DX: R07.89 Other chest pain (principal); I10 Essential (primary) hypertension; E11.9 Type 2 diabetes mellitus without complications; Z79.82 Long term (current) use of aspirin; I25.10 Atherosclerotic heart disease of native coronary artery without angina pectoris; E78.5 Hyperlipidemia, unspecified; N40.0 Benign prostatic hyperplasia without lower urinary tract symptoms; N18.4 Chronic kidney disease, stage 4 (severe); J44.9 Chronic obstructive pulmonary disease, unspecified; Z86.73 Personal history of transient ischemic attack (TIA), and cerebral infarction without residual deficits; Z79.01 Long term (current) use of anticoagulants; F17.210 Nicotine dependence, cigarettes, uncomplicated
CPT/HCPCS: 36415; 71045; 78452; 80053; 83880; 84484; 85025; 85379; 85610; 85660; 85730; 93005; 93017; 93306; 96372; 99284; A9270-GY; A9502; G0378; J1644; J2785; J2930

== ENCOUNTER 2018-11-24 08:18 | Emergency (ER) | payer BC ==
[2018-11-24 08:30] VITALS: BP 119/59
--- NOTE | 2018-11-24 09:16 | UC ---
Respiratory Complaint HPI - HPI Summary HPI Summary: PATIENT REPORTS COUGH, NASAL CONGESTION AND FATIGUE FOR SEVERAL WEEKS. OCCASIONALLY FEELS WHEEZY. NO FEVER, NAUSEA/VOMITING. STATES HE HAS A HARD TIME BREATHING/SLEEPING AT NIGHT DUE TO HIS NASAL CONGESTION. SMOKES 2-3 CIGARS PER DAY AND STATES HE IS READY TO QUIT. IS REQUESTING NICOTROL NASAL SPRAY. ADMITS HE HAS A HISTORY OF SEASONAL ALLERGIES. IS NOT TAKING ANY ALLERGY MEDICATION. - History of Current Complaint Chief Complaint: UCRespiratory Stated Complaint: SINUS ISSUE Time Seen by Provider: 11/24/18 09:03 Hx Obtained From: Patient Onset/Duration: Gradual Onset, Lasting Weeks, Still Present Timing: Constant Severity Initially: Moderate Severity Currently: Moderate Pain Intensity: 0 Pain Scale Used: 0-10 Numeric Character: Cough: Nonproductive Aggravating Factors: Nothing Alleviating Factors: Nothing Associated Signs And Symptoms: Positive: Wheezing, URI, Nasal Congestion. Negative: Dyspnea, Fever, Chills - Allergies/Home Medications Allergies/Adverse Reactions: Allergies Allergy/AdvReac Type Severity Reaction Status Date / Time cephalexin [From Keflex] AdvReac N/V Verified 11/24/18 08:31 PMH/Surg Hx/FS Hx/Imm Hx Endocrine History: Diabetes Cardiovascular History: Hypertension Respiratory History: COPD, Asthma Other History Of: Anticoagulant Therapy - Surgical History Surgical History: Yes Surgery Procedure, Year, and Place: ABDOMINAL HERNIA REPAIR, skull fracture in the . Aortic valve replacement September 2014 - Family History Known Family History: Positive: Cardiac Disease, Hypertension Negative: Diabetes - Social History Alcohol Use: None Alcohol Amount: SOCIAL Substance Use Type: None Substance Use Comment - Amount & Last Used: pt confused; current substance use is unknown, but no known history Smoking Status (MU): Light Every Day Tobacco Smoker Type: Cigars Amount Used/How Often: 1-2 CIGARS/DAY Length of Time of Smoking/Using Tobacco: 57 years Have You Smoked in the Last Year: Yes When Did the Patient Quit Smoking/Using Tobacco: 2014 Household Exposure Type: Cigars - Immunization History Most Recent Influenza Vaccination: fall 2016 Most Recent Tetanus Shot: 2013 Most Recent Pneumonia Vaccination: 2013 Review of Systems All Other Systems Reviewed And Are Negative: Yes Constitutional: Positive: Fatigue ENT: Positive: Nasal Discharge, Sinus Congestion Respiratory: Positive: Cough. Negative: Shortness Of Breath Cardiovascular: Positive: Negative Gastrointestinal: Positive: Negative Physical Exam Triage Information Reviewed: Yes Appearance: Well-Appearing, No Pain Distress, Well-Nourished Vital Signs: Initial Vital Signs Temp 98.5 F 11/24/18 08:25 Pulse 57 11/24/18 08:25 Resp 16 11/24/18 08:25 BP 119/59 11/24/18 08:25 Pulse Ox 97 11/24/18 08:25 Vital Signs Reviewed: Yes Eyes: Positive: Conjunctiva Clear ENT: Positive: Hearing grossly normal, Pharynx normal, TMs normal Neck: Positive: Supple, Nontender, No Lymphadenopathy Respiratory Exam: Normal Cardiovascular: Positive: RRR, Murmur:Sys:Grade _?_/ - 2/6 Abdomen Description: Positive: Soft Musculoskeletal: Positive: No Edema Neurological: Positive: Alert Psychological: Positive: Age Appropriate Behavior Skin: Negative: Rashes Respiratory Course/Dx - Course Course Of Treatment: PATIENT'S URI SYMPTOMS ARE LIKELY VIRALLY/ALLERGIC MEDIATED. GIVEN HIS HISTORY OF COPD AND LONG-STANDING SYMPTOMS WILL GO AHEAD AND COVER WITH AN ANTIBIOTIC. HAVE ALSO RECOMMENDED PATIENT TAKE AN OTC ANTIHISTAMINE AND USE FLONASE DAILY. PREDNISONE WILL HELP WITH AIRWAY INFLAMMATION. PATIENT STATES HE IS READY TO QUIT SMOKING. IS REQUESTING NICOTROL NASAL SPRAY. I HAVE ADVISED HIM TO HOLD OFF ON FILLING THIS PRESCRIPTION UNTIL HIS URI SYMPTOMS HAVE IMPROVED AND HIS NASAL CONGESTION IS BETTER. I HAVE ALSO STRESSED TO THE PATIENT THE IMPORTANCE OF STOPPING SMOKING WHEN HE INITIATES THE NASAL SPRAY. - Differential Dx/Diagnosis Provider Diagnosis: Acute URI, Nicotine dependence with current use Discharge - Sign-Out/Discharge Documenting (check all that apply): Patient Departure All imaging exams completed and their final reports reviewed: No Studies - Discharge Plan Condition: Stable Disposition: HOME Prescriptions: Albuterol HFA INHALER* [Ventolin HFA Inhaler*] 2 puff INH Q4H PRN #1 mdi PRN Reason: Shortness Of Breath Azithromycin 500 mg PO DAILY #5 tab Fluticasone NASAL SPRAY 50MCG* [Flonase NASAL SPRAY 50MCG*] 2 spray BOTH NARES DAILY #1 btl Nicotine [Nicotrol NS 10 MG/ML NASAL SPRAY] 10 mg NASAL .SEE DIRECTIONS PRN #1 spr PRN Reason: Cravings predniSONE TAB* [Deltasone TAB*] 50 mg PO DAILY #5 tab Patient Education Materials: Nicotine (Into the nose), How to Stop Smoking (ED) , Upper Respiratory Infection (ED) Referrals: Romina Bolden MD [Primary Care Provider] - 2 Weeks Additional Instructions: YOUR SYMPTOMS MAY BE VIRALLY MEDIATED BUT GIVEN THE LENGTH OF TIME YOU HAVE BEEN ILL WE WILL COVER YOU WITH ANTIBIOTICS. IF YOU START THE MEDICINE BE SURE TO TAKE IT FOR THE FULL COURSE. REST, HYDRATE, OTC MEDS NEEDED. WILL ALSO TREAT WITH PREDNISONE TO HELP WITH AIRWAY INFLAMMATION. ALBUTEROL INHALER REFILLED. SEEK FOLLOW-UP WITH YOUR PCP IF YOU ARE NOT IMPROVING OVER THE NEXT 1- 2 WEEKS. TAKING OTC ANTIHISTAMINE SUCH CLARITIN DAILY AND USE FLONASE 2 SPRAYS IN EACH NOSTRIL BEFORE BED TO COVER FOR ANY ALLERGIC COMPONENT. NICOTROL NASAL SPRAY PRESCRIBED PER YOUR REQUEST. BE AWARE THAT YOU MUST QUIT SMOKING ENTIRELY WHEN YOU START USING THIS NASAL SPRAY. I RECOMMEND HOLDING OFF ON INITIATING THIS TREATMENT UNTIL YOUR NASAL CONGESTION HAS RESOLVED AND YOU'RE NOT REQUIRING THE USE OF FLONASE NIGHTLY. READ THE ATTACHED INFORMATION SHEET ON NICOTROL NASAL SPRAY. DO NOT EXCEED THE RECOMMENDED DAILY DOSAGE. FOLLOW-UP WITH YOUR PRIMARY CARE PHYSICIAN TO MONITOR YOUR PROGRESS. - Billing Disposition and Condition Condition: STABLE Disposition: Home
== END 2018-11-24 09:38 | disposition home or self-care (01) ==
LOC: UCEAST 08:18
DX: J06.9 Acute upper respiratory infection, unspecified (principal); F17.290 Nicotine dependence, other tobacco product, uncomplicated; R53.83 Other fatigue; E11.9 Type 2 diabetes mellitus without complications; I10 Essential (primary) hypertension; J44.9 Chronic obstructive pulmonary disease, unspecified; Z79.01 Long term (current) use of anticoagulants; Z88.8 Allergy status to other drugs, medicaments and biological substances
CPT/HCPCS: 99212; G0463

== ENCOUNTER 2019-02-02 18:24 | Inpatient (IN) | payer BC ==
--- OUTSIDE RECORDS SUMMARY | 2019-02-02 18:52 | XMS REPORT | Summary of Care ---
:1940 Author Organization [facility] Address 1 [facility] JAQUAN Chaidez [address] Care Team Providers Name Role Phone Romina Bolden MD Primary Care Provider Marcela Donnelly MD Primary Staff Counsel/Recreational Counselor Reason for Visit Reason Comments Check Up follow on diabetes Encounter Details Date Type Department Care Team Description 02/02/2019 Office Visit [facility] Yuan, Essential hypertension, benign (Primary Dx); Practice Romina Kaur MD Anemia, unspecified type; [address] Type 2 diabetes mellitus with stage 4 chronic kidney disease, without long- term current use of insulin ([facility]); [place], [place] [id number] [place] [id number] Chronic obstructive pulmonary disease, unspecified COPD type ([facility]); [phone] Hypertension, unspecified type; Orthostatic hypotension; Weight loss; Insomnia, unspecified type; Hyperkalemia Allergies Active Allergy Reactions Severity Noted Date Comments Diego Inhibitors Other 12/09/2017 Elevated potassium CKD Keflex GI Reaction 07/24/2011 Losartan Other 12/09/2017 Elevated potassium, chronic kidney disease Nsaids Other 04/13/2018 CKD documented as of this encounter (statuses as of 02/02/2019) Medications Medication Sig Dispensed Refills Start End Date Status Date Aspirin 81 MG Oral Take 1 Tab by 0 Active Tab EC mouth DAILY. Blood Glucose by Does not 1 Kit 0 Active Monitoring Suppl apply route. 5 (BLOOD GLUCOSE 1. METER) Does not Brand:[email or web address] apply Kit e Insulinx 2. Dx:E11.9 3. Insulin dependent 4. Test Blood Glucose 4 time(s) A DAY ----before meals & at bedtime Doxercalciferol Take by 0 Active (HECTOROL) 0.5 MCG mouth. Oral Cap albuterol HFA Take 2 Puffs 1 Inhaler 1 Active (VENTOLIN) 108 (90 by inhalation 7 Base) MCG/ACT EVERY SIX Inhalation Aero HOURS SolnIndications: NEEDED Chronic obstructive (wheezing). pulmonary disease, unspecified COPD type (HCC) FREESTYLE INSULINX USE 100 Each 11 Active TEST In Vitro Strip DIRECTED THREE 8 TIMES A DAY Brinzolamide-Brimoni Place 1 Drop 0 Active dine (SIMBRINZA) to the 8 1-0.2 % Ophthalmic external eye Suspension THREE TIMES DAILY. Left eye bimatoprost Place 1 Drop 0 Active (LUMIGAN) 0.03 % in both eyes 8 Ophthalmic Solution EVERY BEDTIME. 1 drop both eyes acetaminophen Take 500 mg by 0 Active (TYLENOL) 500 MG mouth EVERY Oral Tab SIX HOURS NEEDED for Pain. tiotropium (SPIRIVA Take 18 mcg by 0 Active HANDIHALER) 18 MCG inhalation Inhalation Cap DAILY. Cyanocobalamin Place 1 Tab 30 Tab 0 Active (VITAMIN B-12) 1000 under tongue 8 MCG Sublingual SL DAILY. TabIndications: Malaise and fatigue loratadine Take 1 Tab by 30 Tab 0 Active (CLARITIN,ALAVERT) mouth EVERY 8 10 MG Oral OTHER DAY. TabIndications: COPD with acute bronchitis ([facility]) Tadalafil (CIALIS) Take 1 Tab by 10 Tab 1 Active 20 MG Oral mouth 8 TabIndications: NEEDED (sex Erectile activity). dysfunction, unspecified erectile dysfunction type Tizanidine 2 MG Oral Take 2 mg by 30 Tab 5 Active TabIndications: mouth EVERY 9 Muscle spasm BEDTIME NEEDED (muscle cramps). Darifenacin Take 1 Tab by 30 Tab 3 Active Hydrobromide 15 MG mouth DAILY. 9 Oral TABLET SR 24 HR Nicotine NASAL spray [place] 1 [place] 40 mL 3 Active 10 mg/mL 10 MG/ML in nose FOUR 9 Nasal TIMES DAILY SolutionIndications: NEEDED Smoker (smoking). Tiotropium Take 2 INHL by 1 Inhaler 5 Active [place]-Olodaterol inhalation 9 (STIOLTO RESPIMAT) DAILY. 2.5-2.5 MCG/ACT Inhalation Aero Soln atorvastatin TAKE ONE 30 Tab 5 Active (LIPITOR) 80 MG Oral TABLET BY 9 TabIndications: MOUTH ONCE Mixed hyperlipidemia DAILY Mirabegron ER 50 MG Take 50 mg by 60 Tab 3 Active Oral TABLET SR 24 HR mouth DAILY. 9 finasteride TAKE ONE 90 Tab 1 Active (PROSCAR) 5 MG Oral TABLET BY 9 TabIndications: MOUTH ONCE Benign nodular DAILY prostatic hyperplasia without lower urinary tract symptoms Polyvinyl Place to the 0 Active Alcohol-Povidone external eye. (REFRESH OP) metoprolol Take 12.5 mg 0 Active (LOPRESSOR) 25 MG by mouth TWICE Oral Tab DAILY. amLodipine (NORVASC) Take 1 Tab by 90 Tab 1 Active 5 MG Oral mouth DAILY. 9 TabIndications: New lower dose Essential hypertension, benign furosemide (LASIX) Take 1 Tab by 30 Tab 5 Active 20 MG Oral mouth DAILY 9 TabIndications: NEEDED (leg Essential swelling). hypertension, benign lisinopril Take 1 Tab by 30 Tab 3 Active (PRINIVIL, ZESTRIL) mouth DAILY. 9 20 MG Oral New lower dose TabIndications: Essential hypertension, benign polyethylene glycol Take 17 g by 1 Bottle 5 02/03/20 Discontinued (MIRALAX) Oral mouth DAILY 8 19 PowderIndications: NEEDED Constipation, (constipation) unspecified . constipation type amLodipine (NORVASC) Take 1 Tab by 30 Tab 5 02/03/20 Discontinued 10 MG Oral mouth DAILY. 9 19 (Dose TabIndications: Adjustment) Essential hypertension, benign furosemide (LASIX) Take 1 Tab by 30 Tab 5 02/03/20 Discontinued 20 MG Oral mouth DAILY. 9 19 (Dose TabIndications: Adjustment) Essential hypertension, benign lisinopril Take 1 Tab by 30 Tab 5 02/03/20 Discontinued (PRINIVIL, ZESTRIL) mouth DAILY. 9 19 (Dose 40 MG Oral Adjustment) TabIndications: Essential hypertension, benign hydrOXYzine pamoate Take 25 mg by 0 02/03/20 Discontinued (VISTARIL) 25 MG mouth EVERY 19 (Side Effect) Oral Cap BEDTIME NEEDED. documented as of this encounter (statuses as of 02/02/2019) Active Problems Problem Noted Date Type 2 diabetes mellitus with stage 4 chronic kidney disease, without 2018 long-term current use of insulin Trochanteric bursitis of both hips 09/17/2017 Hip pain, bilateral 08/07/2017 Coronary artery disease involving [place] coronary artery of [place] heart 01/15 without angina pectoris Type 2 diabetes mellitus with stage 4 chronic kidney disease 01/16/2016 Gross hematuria 08/03/2015 Elevated prostate specific antigen (PSA) 08/03/2015 CAD (coronary artery disease) 11/07/2014 Overview: CABG September 2014 Hx of CABG 06/22/2014 Overview: 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 General patient education discussion including: obesity-related excess mortality, weight loss link to reduction of risk factors for cardiac and other diseases, importance of long- term maintenance treatment in weight loss COPD (chronic obstructive pulmonary disease) 11/28/2011 Chronic renal insufficiency 10/03/2011 Overview: Dr aliza ulloa Essential hypertension, benign 07/24/2011 Benign prostatic hyperplasia with urinary obstruction 07/24/2011 Overview: Urology MD David Davis and Dr Mily Ulloa Prescription enablex and flomax Type 2 diabetes mellitus with renal manifestations 07/24/2011 Overview: lantus insulin at bedtime 30 units begun 2010 Leg cramps 07/24/2011 Tobacco use disorder 07/24/2011 Overview: 1 pack per day began age 18 Cut down to 7 cigarettes daily 10/01 Quit smoking briefly 05/2012 Aortic stenosis Overview: Bioprosthetic AVR and CABG September 2014, Dr. Catrachito Casas at [facility] in [place] S/P AVR (aortic valve replacement) HTN (hypertension) Gout Sleep apnea Overview: never followed up on sleep study, agrees to set this up today 01/16/16 documented as of this encounter (statuses as of 02/02/2019) Resolved Problems Problem Noted Date Resolved Date Septicemia due to Enterobacter species 11/13/2017 07/01/2018 Type 2 diabetes mellitus with stage 4 chronic kidney 09/11/2016 03/12/2018 disease, with long-term current use of insulin Hyperkalemia 10/31/2011 07/31/2017 Overview: Due to renal disease Potassium Level 5.8-6 2011 Diabetes mellitus 03/12/2018 documented as of this encounter (statuses as of 02/02/2019) Immunizations Name Administration Dates Next Due Depo Medrol (40mg) 07/20/2015 Influenza (IM) Preservative Free 06/06/2013, 04/12/2012 Influenza Vaccine High Dose 05/04/2018, 03/24/2017, 04/07/2016, 03/06/2014 PNEUMOCOCCAL POLYSACCHARIDE VACCINE 03/06/2014 Pneumococcal Conjugate(13 Valent) 05/19/2017 documented as of this encounter Social History Tobacco Use Types Packs/Day Years Used Date Current Some Day Smoker Cigars 2 45 Quit: 06/22/2017 Smokeless Tobacco: Never Used Alcohol Use Drinks/Week oz/Week Comments No Sex Assigned at Date Recorded Not on file Job Start Date Occupation Industry Not on file Not on file Not on file Travel History Travel Start Travel End No recent travel history available. documented as of this encounter Last Filed Vital Signs Vital Sign Reading Time Taken Comments Blood Pressure 100/48 02/02/2019 9:57 AM EDT Pulse 59 02/02/2019 9:57 AM EDT Temperature - - Respiratory Rate - - Oxygen Saturation 99% 02/02/2019 9:57 AM EDT Inhaled Oxygen Concentration - - Weight 73 kg (161 lb) 02/02/2019 9:57 AM EDT Height 170.2 cm (5' 7") 02/02/2019 9:57 AM EDT Body Mass Index 25.22 02/02/2019 9:57 AM EDT documented in this encounter Patient Instructions Patient InstructionsRomina Bolden MD - 02/02/2019 9:40 AM EDTYour BP is too low and potassium is too high. Stop hydrozyzine Decrease amlodipine to 5 mg daily Decrease Lisinopril to 20 mg daily. Decrease furosemide to 20 mg daily ONLY if needed for edema or fluid build up. Please do laboratory tests today. Follow up in 3-4 weeks. documented in this encounter Progress Notes Romina Bolden MD - 02/02/2019 9:40 AM EDT Nursing Notes: Ange Dorado LPN 02/02/2019 10:07 AM Signed Chief Complaint Patient presents with Check Up follow on diabetes Chief Complaint: Kamar Seugra is a 78-y.o. male who presents for "not feeling well". History of Present Illness/ROS: Patient presents for not feeling well. He thought it as his diabetes follow up, but he did that last month. He is still confused about his medications and brought them all in today for our review. His BP has been low, has intermittent diarrhea, feels more fatigued. Home be is 90/50 at times. He brought his medications and has metoprolol from Dr Bell 12.5 mg bid and Lisionpril 40 mg dailyfrom the ER. His BP is now too low, potassium high Plan last visit on 01/05/19: we called [facility] and Urgent care resumed his lisinopril a few months ago. Current laboratory tests are while on that med. BP is controlled. Continue current medications. Repeat laboratory tests in [address] lung screen was Ordered. Encouraged to Keep pulmonology appointment tomorrow (which he cancelled, rescheduled for 02/24/19) He never saw the [place] jewelry coater. He does not want to see Dr Guerrero in [place], nor Dr Minor in [place]. He never saw neurology as ordered last Fall. Saw eye doctor 2 days ago.: glaucoma, no retinopathy Review of Systems - General ROS: positive for - fatigue and weight loss negative for - chills, fever or night sweats ENT ROS: negative for - nasal congestion Respiratory ROS: negative for - cough, hemoptysis or shortness of breath Cardiovascular ROS: no chest pain or dyspnea on exertion negative for - edema Gastrointestinal ROS: no abdominal pain, change in bowel habits, or black or bloody stools Genito-Urinary ROS: has overactive bladder, wants to cut back on furosemide. Lab Results Component Value Date GLYCO 5.8 (H) 01/03/2019 GLYCO 5.5 08/11/2018 GLYCO 7.5 (H) 03/12/2018 Lab Results Component Value Date NA 140 01/03/2019 K 5.3 (H) 01/03/2019 CL 109 (H) 01/03/2019 CO2 24 01/03/2019 GLUCOSE 101 (H) 01/03/2019 BUN 43 (H) 01/03/2019 CREATININE 2.5 (H) 01/03/2019 CALCIUM 8.4 01/03/2019 TP 7.0 01/03/2019 ALBUMIN 4.0 01/03/2019 AST 44 01/03/2019 ALT 31 01/03/2019 ALK 77 01/03/2019 TBILI 0.6 01/03/2019 EGFR 31 01/03/2019 Lab Results Component Value Date TSH 1.35 06/26/2016 Lab Results Component Value Date CHOL 90 01/03/2019 TRIG 71 01/03/2019 HDL 37 (L) 01/03/2019 LDL 39 01/03/2019 LDLHDLRATIO 1.0 01/03/2019 CHOLHDLRATIO 2.4 01/03/2019 Past Medical History: Diagnosis Date Aortic stenosis BPH (benign prostatic hyperplasia) sees Dr. Grimes CAD (coronary artery disease) Chronic kidney disease (CKD) stage G4/A1, severely decreased glomerular filtration rate (GFR)between 15-29 mL/min/1.73 square meter and albuminuria creatinine ratio less than 30 mg/g (HCC) Coronary artery disease Dr. Bell. 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 [place] Current Outpatient Medications: acetaminophen (TYLENOL) 500 MG Oral Tab, Take 500 mg by mouth EVERY SIX HOURS NEEDED for Pain., Disp: , Rfl: albuterol HFA (VENTOLIN) 108 (90 Base) MCG/ACT Inhalation Aero Soln, Take 2 Puffs by inhalation EVERY SIX HOURS NEEDED (wheezing)., Disp: 1 Inhaler, Rfl: 1 amLodipine (NORVASC) 5 MG Oral Tab, Take 1 Tab by mouth DAILY. New lower dose, Disp: 90 Tab,Rfl: 1 Aspirin 81 MG Oral Tab EC, Take 1 Tab by mouth DAILY., Disp: , Rfl: atorvastatin (LIPITOR) 80 MG Oral Tab, TAKE ONE TABLET BY MOUTH ONCE DAILY, Disp: 30 Tab, Rfl: 5 bimatoprost (LUMIGAN) 0.03 % Ophthalmic Solution, Place 1 Drop in both eyes EVERY BEDTIME. 1drop both eyes, Disp: , Rfl: 0 Blood Glucose Monitoring Suppl (BLOOD GLUCOSE METER) Does not apply Kit , by Does not apply route. 1. Brand:Freestyle Insulinx 2. Dx:E11.9 3. Insulin dependent 4. Test Blood Glucose 4 time(s) A DAY ----before meals & at bedtime, Disp: 1 Kit, Rfl: 0 Brinzolamide-Brimonidine (SIMBRINZA) 1-0.2 % Ophthalmic Suspension, Place 1 Drop to the external eye THREE TIMES DAILY. Left eye, Disp: , Rfl: 0 Cyanocobalamin (VITAMIN B-12) 1000 MCG Sublingual SL Tab, Place 1 Tab under tongue DAILY., Disp: 30 Tab, Rfl: 0 Darifenacin Hydrobromide 15 MG Oral TABLET SR 24 HR, Take 1 Tab by mouth DAILY., Disp: 30 Tab, Rfl: 3 Doxercalciferol (HECTOROL) 0.5 MCG Oral Cap, Take by mouth., Disp: , Rfl: finasteride (PROSCAR) 5 MG Oral Tab, TAKE ONE TABLET BY MOUTH ONCE DAILY , Disp: 90 Tab, Rfl:1 FREESTYLE INSULINX TEST In Vitro Strip, USE DIRECTED THREE TIMES A DAY, Disp: 100 Each, Rfl: 11 furosemide (LASIX) 20 MG Oral Tab, Take 1 Tab by mouth DAILY NEEDED ( leg swelling)., Disp: 30 Tab, Rfl: 5 lisinopril (PRINIVIL, ZESTRIL) 20 MG Oral Tab, Take 1 Tab by mouth DAILY. New lower dose, Disp: 30 Tab, Rfl: 3 loratadine (CLARITIN,ALAVERT) 10 MG Oral Tab, Take 1 Tab by mouth EVERY OTHER DAY., Disp: 30Tab, Rfl: 0 metoprolol (LOPRESSOR) 25 MG Oral Tab, Take 12.5 mg by mouth TWICE DAILY., Disp: , Rfl: Mirabegron ER 50 MG Oral TABLET SR 24 HR, Take 50 mg by mouth DAILY., Disp: 60 Tab, Rfl: 3 Nicotine NASAL spray 10 mg/mL 10 MG/ML Nasal Solution, [place] 1 [place] in nose FOUR TIMES DAILY NEEDED (smoking)., Disp: 40 mL, Rfl: 3 Polyvinyl Alcohol-Povidone (REFRESH OP), Place to the external eye., Disp: , Rfl: Tadalafil (CIALIS) 20 MG Oral Tab, Take 1 Tab by mouth NEEDED (sex activity)., Disp: 10 Tab, Rfl: 1 tiotropium (SPIRIVA HANDIHALER) 18 MCG Inhalation Cap, Take 18 mcg by inhalation DAILY., Disp: , Rfl: Tiotropium [place]-Olodaterol (STIOLTO RESPIMAT) 2.5-2.5 MCG/ACT Inhalation Aero Soln, Take 2 INHL by inhalation DAILY., Disp: 1 Inhaler, Rfl: 5 Tizanidine 2 MG Oral Tab, Take 2 mg by mouth EVERY BEDTIME NEEDED ( muscle cramps)., Disp:30 Tab, Rfl: 5 Allergies Allergen Reactions Diego Inhibitors Other Elevated potassium CKD Keflex GI Reaction Losartan Other Elevated potassium, chronic kidney disease Nsaids Other CKD Social History Socioeconomic History Marital status: Single Spouse name: Not on file Number of children: Not on file Years of education: Not on file Highest education level: Not on file Occupational History Not on file Social Needs Financial resource strain: Not on file Food insecurity: Worry: Not on file Inability: Not on file Transportation needs: Medical: Not on file Non-medical: Not on file Tobacco Use Smoking status: Current Some Day Smoker Packs/day: 2.00 Years: 45.00 Pack years: 90.00 Types: Cigars Last attempt to quit: 06/22/2017 Years since quittin.6 Smokeless tobacco: Never Used Substance and Sexual Activity Alcohol use: No Drug use: No Sexual activity: Yes Partners: Female Lifestyle Physical activity: Days per week: Not on file Minutes per session: Not on file Stress: Not on file Relationships Social connections: Talks on phone: Not on file Gets together: Not on file Attends amish service: Not on file Active member of club or organization: Not on file Attends meetings of clubs or organizations: Not on file Relationship status: Not on file Intimate partner violence: Fear of current or ex partner: Not on file Emotionally abused: Not on file Physically abused: Not on file Forced sexual activity: Not on file Other Topics Concern Back Care Not Asked Bike Helmet Not Asked Blood Transfusions Not Asked Caffeine Concern No Exercise No Hobby Hazards Not Asked International Travel Not Asked Service Not Asked Occupational Exposure Not Asked Seat Belt Not Asked Self-Exams Not Asked Sleep Concern Not Asked Special Diet No Stress Concern No Weight Concern Yes Social History Narrative Lives in [facility],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 History reviewed. No pertinent family history. PHYSICAL EXAMINATION: BP 100/48 (BP Location: Right arm, Patient Position: Sitting) | Pulse 59 | Ht 5' 7" (1.702 m) | Wt 161 lb (73 kg) | SpO2 99% | BMI 25.22 kg/m Physical Examination: General appearance - alert, well appearing, and in no distress Mental status - alert, oriented to person, place, and time, normal mood, behavior, speech, dress, motor activity, and thought processes Eyes - pupils equal and reactive, extraocular eye movements intact, sclera anicteric Ears - bilateral TM's and external ear canals normal Throat: No erythema Neck - supple, no cervical or supraclavicular adenopathy, carotids upstroke normal bilaterally, no bruits, thyroid exam: thyroid is normal in size without nodules or tenderness, no neck masses palpated. Chest/Lungs - clear to auscultation, no wheezes, rales or rhonchi, symmetric air entry, good aeration Heart - normal rate, regular rhythm, normal S1, S2, no murmurs, rubs, clicks or gallops Abdomen - soft, non tender on palpation, nondistended, no masses or hepatosplenomegaly, bowel soundsnormal, normal to percussion, no guarding or rebound. No costervertebral angle tenderness Neurological - alert, oriented, normal speech, no gross focal findings or movement disorder noted Extremities - dorsalis pedis pulses normal, no pedal edema, no clubbing or cyanosis ASSESSMENT/PLAN: ICD-9-CM ICD-10-CM 1. Essential hypertension, benign 401.1 I10 amLodipine (NORVASC) 5 MG Oral Tab furosemide (LASIX) 20 MG Oral Tab lisinopril (PRINIVIL, ZESTRIL) 20 MG Oral Tab BASIC METABOLIC PANEL BASIC METABOLIC PANEL 2. Anemia, unspecified type 285.9 D64.9 CBC WITH DIFFERENTIAL CBC WITH DIFFERENTIAL 3. Type 2 diabetes mellitus with stage 4 chronic kidney disease, without long- term current use of insulin ([facility]) 250.40 E11.22 585.4 N18.4 4. Chronic obstructive pulmonary disease, unspecified COPD type ([facility]) 496 J44.9 5. Hypertension, unspecified type 401.9 I10 6. Orthostatic hypotension 458.0 I95.1 7. Weight loss 783.21 R63.4 THYROID STIMULATING HORMONE THYROID STIMULATING HORMONE 8. Insomnia, unspecified type 780.52 G47.00 9. Hyperkalemia 276.7 E87.5 Patient Instructions Your BP is too low and potassium is too high. Stop hydrozyzine Decrease amlodipine to 5 mg daily Decrease Lisinopril to 20 mg daily. Decrease furosemide to 20 mg daily ONLY if needed for edema or fluid build up. Please do laboratory tests today. Follow up in 3-4 weeks. Author: Romina Bolden MD 02/02/2019 12:44 documented in this encounter Plan of Treatment Date Type Specialty Care Team Description 02/24/2019 Office Visit Pulmonary Jaswinder Calles MD [address] [place] [address] [phone] 03/09/2019 Office Visit Family Practice Romina Bolden MD [address] [place] [address] [phone] Name Type Priority Associated Diagnoses Date/Time BASIC METABOLIC PANEL Lab Routine Essential hypertension, 02/02/2019 10:34 AM benign EDT CBC WITH DIFFERENTIAL Lab Routine Anemia, unspecified type 02/02/2019 10: 34 AM EDT THYROID STIMULATING Lab Routine Weight loss 02/02/2019 10:34 AM HORMONE EDT Name Type Priority Associated Diagnoses Order Schedule BASIC METABOLIC PANEL Lab Routine Essential hypertension, Expected: 2018 benign (Approximate), Expires: 02/03/2020 CBC WITH DIFFERENTIAL Lab Routine Anemia, unspecified type Expected: 2018 (Approximate), Expires: 02/03/2020 THYROID STIMULATING Lab Routine Weight loss Expected: 02/02/2019 HORMONE (Approximate), Expires: 02/03/2020 Health Maintenance Due Date Last Done Comments ZOSTER IMMUNIZATION SERIES 1992 (1 of 2) FALL RISK ASSESSMENT 2007 INFLUENZA VACCINE (#1) 2019 05/04/2018, 03/24/2017, 04/07/2016, Additional history exists HEMOGLOBIN A1C 07/06/2019 01/03/2019, 08/11/2018, 03/12/2018, Additional history exists DEPRESSION SCREENING 07/23/2019 07/23/2018 FOOT EXAM 07/23/2019 07/23/2018, 07/23/2018, 07/23/2018, Additional history exists LUNG CANCER SCREENING 01/12/2020 01/11/2019, 01/11/2019, 01/05/2019, Additional history exists Diabetic Eye Exam 09/23/2020 09/23/2018, 04/05/2018, 11/11/2017, Additional history exists HIV SCREENING Completed 10/15/2015 PNEUMOCOCCAL 65+YRS Completed 05/19/2017, 03/06/2014 HPV IMMUNIZATION SERIES Aged Out No longer eligible based on patient's age to complete this topic MENINGOCOCCAL VACCINE IMM Aged Out No longer eligible based on patient's age to complete this topic documented as of this encounter Goals Goal Patient Goal Associated Recent Patient-Stated? Author Type Problems Progress Blood Pressure Blood 100/48 No Yuan, < 140/90 Pressure (02/02/2019 Romina Kaur, 9:57 AM EDTBrennen GARCIA Note: This is an individualized treatment (blood pressure) goal for Kamar Segura: Displayed above (on the left) is your goal for blood pressure control. Your most recent blood pressure is also shown above, on the right. You should try to achieve blood pressures that are lower than your goal listed above (on the left). Smoking Cessation COPD No Romina Bolden MD Note: This is an individualized treatment (COPD) goal for Kamar Segura: Quit smoking immediately! Your provider has information and resources that may help you to quit. Glycohemoglobin A1c < 7.0 Diabetes 5.8 (01/03/2019 3:45 No CannariatoRomina MD Note: This is an individualized treatment (diabetes control, HgbA1C) goal for Kamar Segura: Displayed above is your progress towards your HgbA1C goal. Your goal is shown above (on the left); your most recent HgbA1C is shown on the right. Note that lower numbers are better. Keep immunizations current Lifestyle No Romina Bolden MD Note: This is an individualized lifestyle goal for Kamar Segura: Please be sure to keep up-to-date on recommended immunizations. For example, this would include a yearly influenza vaccine. Immunization status can be seen by looking at the Health Maintenance sections of your e[facility], Plan of Care, and any After Visit Summaries. Take all prescribed medications as Self-management No Romina Bolden MD directed Note: This is an individualized self-management goal for Kamar Segura: Please take all prescribed medications as directed. 1. Do not skip doses. If you cannot afford your medications, talk with your doctor. 2. Use a pill reminder system such as a pill box if needed. Your pharmacist can help you with this. 3. Contact your Pharmacy 5 days before your medication runs out. If you cannot take your medications for any reasons, talk with your doctor. 4. Please bring all of your medication bottles and inhalers (or a list of all your medications/inhalers) with you to every visit. Potential barriers to meeting all of your care plan goals will continue to be addressed on an ongoing basis. documented as of this encounter Results Not on filedocumented in this encounter Visit Diagnoses Diagnosis Essential hypertension, benign - Primary Anemia, unspecified type Type 2 diabetes mellitus with stage 4 chronic kidney disease, without long-term current use of insulin (HCC) Chronic obstructive pulmonary disease, unspecified COPD type (HCC) Hypertension, unspecified type Orthostatic hypotension Weight loss Loss of weight Insomnia, unspecified type Hyperkalemia Hyperpotassemia documented in this encounter Insurance Payer Benefit Plan / Subscriber ID Effective Dates Phone Address Type Group [employer]ARA [employer] xxxxxxxxxxxx [address] (Work) [place] [address] documented as of this encounter
[2019-02-02 19:33] LABS: ABS Basophils 0.1 10^3/ul (0-0.2); ABS Eosinophils 0.1 10^3/ul (0-0.6); ABS Lymphocytes 1.2 10^3/ul (1.0-4.8); ABS Monocytes 0.7 10^3/ul (0-0.8); ABS Neutrophils 5.6 10^3/ul (1.5-7.7); Eosinophil % 1.4 %; Hematocrit 38 % (42-52); Hemoglobin 12.8 g/dL (14.0-18.0); Mean Corpuscular HGB Conc 33 g/dL (31-36); Mean Corpuscular Hemoglobin 30 pg (27-31); Mean Corpuscular Volume 90 fL (80-94); Mean Platelet Volume 8.3 fL (7.4-10.4); Platelet Count 243 10^3/uL (150-450); Red Blood Count 4.25 10^6 /uL (4.18-5.48); Red Cell Distribution Width 16 % (10-15); White Blood Count 7.6 10^3/uL (3.5-10.8)
--- NOTE | 2019-02-02 19:51 | ED ---
Complex/Multi-Sys Presentation - HPI Summary HPI Summary: The patient is a 78 y/o F presenting to [facility] with chief complaint of elevated kidney lab work today. He reports that he was outside grilling when his PCP Dr. Bolden called him to tell him that he had elevated kidney blood work, which was taken today at a follow-up visit for HTN, for which he takes Lisinopril. He states that he hasnt been feeling well as hes been more lethargic than usual, and hes been experiencing diarrhea for the last 2-3 days, which he believes is secondary to eating peanuts. He denies any nausea, vomiting, CP, or SOB. He also notes that hes been having difficulty with his memory which is unlike him. He is not currently in any pain. His Lisinopril dosage was reduced today, but he hasnt had any other recent medication changes. PMHx: DM, angina, CHF, CAD, HLD, HTN, IL, aortic valve replacement, asthma, COPD, chronic renal failure , TIA, anxiety. FHx: cardiac disease, HTN. Light every day cigar smoker, no EtOH , no substance use. - History Of Current Complaint Chief Complaint: EDGeneral Time Seen by Provider: 02/02/19 19:33 Hx Obtained From: Patient Onset/Duration: Other - known today per PCP for kidney lab elevations, diarrhea for 2-3 days Severity Currently: Moderate Location: Negative Aggravating Factor(s): peanuts could be causing diarrhea, no other aggravating factors Alleviating Factor(s): nothing Associated Signs And Symptoms: Positive: Diarrhea - last 2-3 days, Other - lethargy, difficulty with memory. Negative: SOB, Chest Pain, Nausea, Vomiting Related History: Similar Episode/Diagnosed As: - chronic renal failure, CHF, CAD , HLD, HTN, COPD, DM - Allergies/Home Medications Allergies/Adverse Reactions: Allergies Allergy/AdvReac Type Severity Reaction Status Date / Time cephalexin [From Keflex] AdvReac N/V Verified 02/02/19 23:52 Home Medications: Home Medications Finasteride TAB* [Proscar TAB*] 5 mg PO DAILY 02/02/19 [History Confirmed ] PMH/Surg Hx/FS Hx/Imm Hx Endocrine/Hematology History: Reports: Hx Anticoagulant Therapy, Hx Blood Transfusions, Hx Diabetes - type 2 dm Denies: Hx Thyroid Disease, Hx Unexplained Bleeding Cardiovascular History: Reports: Hx Angina, Hx Congestive Heart Failure, Hx Coronary Artery Disease, Hx Hypercholesterolemia, Hx Hypertension, Hx Myocardial Infarction, Hx Valvular Heart Disease - aortic valve replacement, Other Cardiovascular Problems/Disorders - AORTIC STENOSIS Denies: Hx Auto Implanted Cardiovert Defib, Hx Congenital Heart Disease, Hx Pacemaker/ICD, Hx Syncope Respiratory History: Reports: Hx Asthma, Hx Chronic Obstructive Pulmonary Disease (COPD), Hx Sleep Apnea - pt states he doesn't wear CPAP anymore Comment Only: Other Respiratory Problems/Disorders - SOB GI History: Denies: Hx Ulcer Comment Only: Other GI Disorders - HERNIA REPAIR History: Reports: Hx Benign Prostatic Hyperplasia, Hx Chronic Renal Failure - CKD stage 3, Hx Renal Disease - RENAL FUNCTION DUE TO DIABETES, Other Problems/Disorders - chronic renal insufficiency Denies: Hx Dialysis Musculoskeletal History: Reports: Hx Back Problems, Hx Gout, Other Musculoskeletal History - leg and foot cramps Denies: Hx Arthritis, Hx Osteoporosis Sensory History: Denies: Hx Contacts or Glasses, Hx Eye Injury, Hx Glaucoma, Hx Deafness, Hx Hearing Aid, Hx Hearing Problem Opthamlomology History: Denies: Hx Contacts or Glasses, Hx Eye Injury, Hx Glaucoma Neurological History: Reports: Hx Transient Ischemic Attacks (TIA) Denies: Hx Dementia, Hx Developmental Delay, Hx Migraine, Hx Seizures, Hx Spinal Cord Injury Psychiatric History: Reports: Hx Anxiety Denies: Hx Attention Deficit Hyperactivity Disorder, Hx Eating Disorder, Hx Depression, Hx Panic Disorder, Hx Post Traumatic Stress Disorder, Hx Inpatient Treatment, Hx Community Mental Health Tx, Hx Schizophrenia, Hx Bipolar Disorder , Hx Suicide Attempt, Hx of Violent Episodes Against Others, Hx Substance Abuse , Other Psychiatric Issues/Disorders - Surgical History Surgical History: Yes Surgery Procedure, Year, and Place: ABDOMINAL HERNIA REPAIR, skull fracture in the . Aortic valve replacement September 2014 Hx Anesthesia Reactions: No - Immunization History Date of Tetanus Vaccine: unknown Date of Influenza Vaccine: None Infectious Disease History: No Infectious Disease History: Denies: Hx Clostridium Difficile, Hx Hepatitis, Hx Human Immunodeficiency Virus (HIV), Hx of Known/Suspected MRSA, Hx Shingles, Hx Tuberculosis, Hx Known/ Suspected VRE, Hx Known/Suspected VRSA, History Other Infectious Disease, Traveled Outside the [place] in Last 30 Days - Family History Known Family History: Positive: Cardiac Disease, Hypertension Negative: Diabetes - Social History Alcohol Use: None Alcohol Amount: SOCIAL Hx Substance Use: No Substance Use Type: Reports: None Hx Tobacco Use: Yes Smoking Status (MU): Light Every Day Tobacco Smoker Type: Cigars Amount Used/How Often: 1-2 CIGARS/DAY Length of Time of Smoking/Using Tobacco: 57 years Have You Smoked in the Last Year: Yes Review of Systems Positive: Other - lethargic Negative: Chest Pain Negative: Shortness Of Breath Positive: Diarrhea. Negative: Vomiting, Nausea Neurological: Other - difficulty with memory All Other Systems Reviewed And Are Negative: Yes Physical Exam - Summary Physical Exam Summary: Appearance: Well-appearing, Well-nourished, lying in bed comfortably Skin: Warm, dry, no obvious rash Eyes: sclera anicteric, no conjunctival pallor ENT: mucous membranes moist, pharynx appears normal Neck: Supple, nontender Respiratory: Clear to auscultation, no signs of respiratory distress Cardiovascular: Normal S1, S2. No murmurs. Normal distal pulses in tibial and radial bilaterally. Abdomen: Soft, nontender, normal active bowel sounds present Musculoskeletal: Normal, Strength/ROM Intact Neurological: A&Ox3, awake and alert, mentation is normal, speech is fluent and appropriate Psychiatric: affect is normal, does not appear anxious or depressed Triage Information Reviewed: Yes Vital Signs On Initial Exam: Initial Vitals Temp Pulse Resp BP Pulse Ox 98.4 F 69 16 89/59 96 02/02/19 18:29 02/02/19 18:29 02/02/19 18:29 02/02/19 18:29 02/02/19 18:29 Vital Signs Reviewed: Yes Diagnostics - Vital Signs Vital Signs Temp Pulse Resp BP Pulse Ox 02/02/19 18:29 98.4 F 69 16 89/59 96 - Laboratory Lab Results: Lab Results 02/02/19 Range/Units 19:24 WBC 7.6 (3.5-10.8) 10^3/uL RBC 4.25 (4.18-5.48) 10^6 /uL Hgb 12.8 L (14.0-18.0) g/dL Hct 38 L (42-52) % MCV 90 (80-94) fL MCH 30 (27-31) pg MCHC 33 (31-36) g/dL RDW 16 H (10-15) % Plt Count 243 (150-450) 10^3/uL MPV 8.3 (7.4-10.4) fL Neut % (Auto) 72.8 % Lymph % (Auto) 16.0 % Dewey % (Auto) 9.0 % Eos % (Auto) 1.4 % Baso % (Auto) 0.8 % Absolute Neuts (auto) 5.6 (1.5-7.7) 10^3/ul Absolute Lymphs (auto) 1.2 (1.0-4.8) 10^3/ul Absolute Monos (auto) 0.7 (0-0.8) 10^3/ul Absolute Eos (auto) 0.1 (0-0.6) 10^3/ul Absolute Basos (auto) 0.1 (0-0.2) 10^3/ul Absolute Nucleated RBC 0.0 10^3/ul Nucleated RBC % 0.0 Result Diagrams: 02/04/19 06:03 02/06/19 04:45 Lab Statement: Any lab studies that have been ordered have been reviewed, and results considered in the medical decision making process. - EKG 1947 Cardiac Rate: NL - 66 bpm EKG Rhythm: Sinus Rhythm Summary of EKG Findings: NSR at 66 bpm. Prominent T waves possible secondary to elevated K+ of 7.3. QRS directional. No STEMI. 2202 Cardiac Rate: NL - 83 bpm EKG Rhythm: Sinus Rhythm Summary of EKG Findings: NSR at 83 bpm. Improved T waves. No STEMI. Re-Evaluation - Re-Evaluation First Eval Re-Evaluation Time: 22:45 Change: Improved Comment: Pt's K+ has dropped to 5.7 and EKG changes have improved markedly. Case reviewed with Dr. Guerrero again, pt is not in need of emergenty dialysis and can be managed here for now. Complex Multi-Symp Course/Dx Course Of Treatment: Edel is a 78 y/o M with concern for elevated kidney labs per PCP Dr. Bolden from blood work taken today. Additionally c/o lethargy, diarrhea for 2-3 days, difficulty with memory. Denies nausea, vomiting , CP, or SOB. Reduction in Lisinopril dosage today without any other recent medication changes. PMHx: chronic kidney failure, CHF, CAD, HLD, HTN, IL, COPD, DM. Upon physical exam, the patient exhibits no acute abnormalities. Blood work reveals Hgb of 12.8, potassium of 7.3, BUN of 57, and creatinine of 4.37. In the ED course, the patient was administered fluids, Insulin, Dextrose, Calcium Gluconate, and Patiromer. EKG at 1947 reveals NSR at 66 bpm. Prominent T waves possible secondary to elevated K+ of 7.3, QRS directional. I discussed the patients case with Dr. Garza, hospitalist, and he recommends speaking with nephrology first. I discussed the case with Dr. Guerrero from nephrology, and he suggests transfer to [facility] for dialysis if the patients blood work doesnt improve in the next few hours. Repeat EKG at 2202 shows NSR at 83 bpm and improvement in T wave changes. Repeat potassium has decreased to 5.7. Glucose has decreased to 48 from 96. After repeat labs and EKG, I discussed the case with Dr. Guerrero again, and since the patient has improved, he agrees that the patient can be admitted rather than transferred. He also recommends another dose of Patiromer and Zanaflex. Dr. Garza accepts the patient for admission. Patient understands and agrees with this plan. - Diagnoses Provider Diagnoses: Hyperkalemia, Acute kidney injury - Physician Notifications Discussed Care Of Patient With: Manuelito Garza - hospitalist Time Discussed With Above Provider: 20:03 Instructed by Provider To: Other - Dr. Garza suggests speaking with nephrology. At 2119, Dr. Guerrero from nephrology recommends transfer to [facility] for dialysis treatment if the patients blood work doesnt improve. After patients repeat blood work was done, Dr. Guerrero states that the patient can be admitted instead of transferred, reported at 2225. Dr. Garza accepts the patient for admission at 2300. - Critical Care Time Critical Care Time: 30-74 min - 45 minutes Discharge - Sign-Out/Discharge Documenting (check all that apply): Patient Departure - Patient is accepted for admission by Dr. Garza. Patient Received Moderate/Deep Sedation with Procedure: No - Discharge Plan Condition: Good Disposition: ADMITTED TO [facility] - Billing Disposition and Condition Condition: GOOD Disposition: Admitted to [facility] - Attestation Statements Document Initiated by Donalde: Yes Documenting Scribe: Gillian Neumann Provider For Whom Scribe is Documenting (Include Credential): Dr. Randy French MD Scribe Attestation: I, Gillian Neumann, scribed for Dr. Randy French MD on 02/07/19 at 0137. Scribe Documentation Reviewed: Yes Provider Attestation: The documentation as recorded by the simónibe, Gillian Neumann accurately reflects the service I personally performed and the decisions made by me, Dr. Randy French MD Status of Scribe Document: Viewed
[2019-02-02 19:52] LABS: Albumin 4.4 g/dL (3.2-5.2); Albumin/Globulin Ratio 1.6 (1-3); Calcium 9.6 mg/dL (8.6-10.3); EGFR Non-African American 13.2 (>60); Globulin 2.8 g/dL (2-4); Total Bilirubin 0.6 mg/dL (0.2-1.0); Total Protein 7.2 g/dL (6.4-8.9)
[2019-02-02 19:56] LABS: Potassium 7.3 mmol/L (3.5-5.0)
[2019-02-02] MEDS ORDERED: Insulin REGULAR(*) 1 UNITS UNIT IV PUSH ONE (19:57)
[2019-02-02] MEDS ORDERED: NS 0.9% 1000 ML** 1,000 ML IV ONE (19:57)
[2019-02-02] MEDS ORDERED: Calcium Gluconate INJ* 2 GM in NS 0.9% 100 ML* 100 ML IVPB ONE (19:58)
[2019-02-02] MEDS ORDERED: Dextrose 50% VIAL 50 ml IV ONE ×2 (19:58→23:00)
[2019-02-02] MEDS ORDERED: Patiromer POWDER* 8.4 GM PAK PO SCH (20:00)
[2019-02-02] MEDS ORDERED: NS 0.9% 100 ML* 100 ML ONE (20:04)
[2019-02-02 22:02] LABS: BUN/Creatinine Ratio 13.8 (8-20); Calcium 9.4 mg/dL (8.6-10.3); EGFR African American 17.8 (>60); EGFR Non-African American 14.7 (>60)
[2019-02-02 22:05] LABS: Potassium 5.7 mmol/L (3.5-5.0)
[2019-02-02] MEDS ORDERED: Dextrose 50% VIAL 50 ml ONE (22:09)
[2019-02-02] MEDS ORDERED: tiZANidine TAB* 2 MG PO ONE ×2 (22:30→23:23)
[2019-02-03] MEDS: Patiromer POWDER* 8.4 GM PAK PO ONE ×2 (00:07→00:34)
[2019-02-03] MEDS ORDERED: tiZANidine TAB* 2 MG PO PRN (00:16)
[2019-02-03] MEDS ORDERED: Albuterol/Ipratropium NEB.SOL* Albuterol 2.5 MG/Ipratropium 0.5 MG 3 ML INH PRN (00:45)
[2019-02-03] MEDS: NS 0.9% 1000 ML** 1,000 ML IV SCH ×2 (01:28→15:24)
[2019-02-03] MEDS: Sodium Bicarbonate (ANTACID)* 650 MG TAB PO SCH ×4 (01:32→21:49)
--- NOTE | 2019-02-03 02:41 | HP ---
CC: Dr. Bolden; Dr. Guerrero * HISTORY AND PHYSICAL: DATE OF ADMISSION: 02/03/19 PRIMARY CARE PHYSICIAN: Dr. Bolden. CAREER EDUCATION TEACHER: Dr. Bell. CHIEF COMPLAINT: Sent by primary for abnormal labs. HISTORY OF PRESENT ILLNESS: This is a 78-year-old male with past medical history of coronary artery disease, status post coronary bypass grafting with aortic valve replacement with porcine aortic valve in September 2014, history of hypertension, diabetes, dyslipidemia, benign prostatic hypertrophy, chronic kidney disease, stage 4, COPD, TIA in 2014, here due to abnormal renal function. The patient stated that he was in his usual state of health up until to the last two days for which he was having consistent diarrhea, increased urination, so he went to see his primary, who ordered some labs and was told to come to the ER as his kidney functions were abnormal. In the ER, the lab was noted to have elevated potassium to up to 7.3 and initially was to be transferred for emergent dialysis, however, after he received some patiromer and D50 and insulin, his potassium did improve to 5.[address] Guerrero was okay with admitting to the hospital and following up with another lab in the morning. The patient otherwise offers no complaints other than the watery diarrhea, he has been having for the last 2 days. No other fever, chills. No chest pain, no shortness of breath, no dizziness, no lightheadedness. He did have some on and off cramping in his legs, which he has all the time and he takes some muscle relaxers for that. The patient otherwise denies any urinary burning sensation, pain with urination, any lower extremity edema, or any shortness of breath. PAST MEDICAL HISTORY: 1. As mentioned coronary artery disease, status post coronary artery bypass graft with reverse SVG-RCA, aortic valve replacement with porcine aortic valve done in September [address] Walsh at [facility] and the patient follows with Dr. Bell, as his prop sawyer. 2. History of hypertension. 3. History of dyslipidemia. 4. History of diabetes type 2, currently not taking any diabetic medication. 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 He was on insulin in the past. 5. History of COPD, not on any oxygen. 6. History of TIA in 2014. 7. History of alcoholism, has been clean since 2016. 8. Anemia of chronic disease. PAST SURGICAL HISTORY: As mentioned, coronary bypass grafting and aortic valve replacement in 2015 and status post bilateral cataract surgery. HOME MEDICATIONS: The patient is currently on: 1. Lisinopril 40 mg oral daily. 2. Darifenacin extended release 15 mg oral daily. 3. Myrbetriq 50 mg oral daily. 4. Finasteride 5 mg oral daily. 5. Atorvastatin 80 mg oral daily. 6. Zanaflex 2 g p.o. b.i.d. p.r.n. 7. Amlodipine 10 mg oral daily. 8. Furosemide 20 mg oral daily. ALLERGIES: The patient is allergic to CEPHALEXIN, which causes nausea, vomiting. He also had hay fever as a child, but that has resolved. FAMILY HISTORY: Father at age 39 with alcoholism. Mother in her 50s with emphysema. SOCIAL HISTORY: The patient smokes about 1 to 2 cigars a day, quit cigarettes in 2014 and previously he used to drink heavy alcohol, but cut that down as well to 20. He denies any other history of drug use. 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 He is otherwise full code. His daughter Loy Hou and his female friend Vaishali Watson are both his medical decisions maker if he gets altered. REVIEW OF SYSTEMS: A 14-point review of systems did not reveal any new information other than what is mentioned in the HPI. PHYSICAL EXAMINATION GENERAL: The patient is awake, alert, and oriented x3. Did not appear to be in any acute distress. VITAL SIGNS: In the ER, BP was noted to be 140/75, heart rate 90, respiration rate on 19, temperature documented at 98.4. HEAD AND NECK: Atraumatic and normocephalic. Bilateral pupils are reactive. Oral mucosa is moist. Neck is supple. No jugular venous distention. LUNGS: Clear to auscultation bilaterally. No wheezes, rhonchi, or rales. HEART; S1, S2. Regular rate and rhythm. ABDOMEN: Soft, nontender, nondistended. EXTREMITIES: No cyanosis, clubbing, or edema. DIAGNOSTIC STUDIES/LAB DATA: CBC shows mild anemia with hemoglobin of 12.8, hematocrit of 38. Initial comprehensive metabolic panel shows significant hyperkalemia with potassium of 7.3, BUN elevated at 57, creatinine elevated at 4.37. Repeat levels suggest potassium improved to 5.7. BUN was still 55, creatinine improved to 4.0. Urinalysis is still pending. EKG, initial EKG showed sinus rhythm with very peaked T waves on the lateral leads consistent with his hyperkalemia. Repeat EKG shows peaking of the T wave has decreased in altitude as compared to the previous EKG. The older EKG from August of 2018, the T waves were similar size as the repeat EKG. IMPRESSION: This is a 78-year-old gentleman with a history of chronic kidney disease, stage 3, here due to worsening renal function and hyperkalemia likely secondary to the recent diarrhea he was having. ASSESSMENT: 1. Acute on chronic kidney disease with hyperkalemia. The patient already given patiromer along with D50 and insulin and calcium gluconate to stabilize cardiac membranes. We will monitor for now and we will add additional patiromer as needed. We will also sodium bicarbonate, which should also help lower the potassium and improve renal function. Given his history of congestive heart failure, I would start with only a gentle hydration with normal saline at only 75 cc an hour and also we will follow up urinalysis and urine electrolytes and follow up with Dr. Guerrero regarding further renal testing and caring. 2. History of hypertension, we will hold blood pressure medications as his current blood pressure was in the low normal. 3. Diarrhea. If patient has returned diarrhea, we will consider testing to rule out any infectious etiology. 4. History of type 2 diabetes, currently not on any medication. We will check an A1c with the morning labs. 5. History of coronary disease. We will hold aspirin in light of his kidney injury and we will consider restarting if okay with Nephrology. 6. History of hyperlipidemia, restart home medications. 7. History benign prostatic hyperplasia and overactive bladder. We will consider restarting home medications if okay with Nephrology. 8. History of chronic obstructive pulmonary disease, not on any nebulizers. We will only add p.r.n. nebs, if the patient develops any shortness of breath or any wheezing. 9. Possible missing home medications. The patient is not sure about his diabetic medications. At first he said he was on insulin then he was stopped and he says maybe there was some oral medication but this is not clear on the home medication list. We will try to get the list from the PCP and adjust his home medications accordingly. 10. History of aortic valve replacement, otherwise stable. 11. History of transient ischemic attack. 12. Deep vein thrombosis prophylaxis with subcu heparin. [id number]/[facility] #: [id number] IGNACIO
[2019-02-03] MEDS: Heparin VIAL(*) 5000 UNITS/ML VIAL (FIVE THOUSAND) SUBCUT SCH ×3 (05:18→21:50)
[2019-02-03 08:02] LABS: ABS Eosinophils 0.2 10^3/ul (0-0.6); ABS Lymphocytes 1.2 10^3/ul (1.0-4.8); ABS Monocytes 0.6 10^3/ul (0-0.8); ABS Neutrophils 3.8 10^3/ul (1.5-7.7); Eosinophil % 3.7 %; Hematocrit 34 % (42-52); Hemoglobin 11.5 g/dL (14.0-18.0); Lymphocyte % 19.9 %; Mean Corpuscular HGB Conc 34 g/dL (31-36); Mean Corpuscular Hemoglobin 30 pg (27-31); Mean Corpuscular Volume 90 fL (80-94); Platelet Count 183 10^3/uL (150-450); Red Blood Count 3.78 10^6 /uL (4.18-5.48); Red Cell Distribution Width 16 % (10-15); White Blood Count 5.8 10^3/uL (3.5-10.8)
[2019-02-03 08:22] LABS: BUN/Creatinine Ratio 14.8 (8-20); Calcium 8.2 mg/dL (8.6-10.3); EGFR African American 20.2 (>60); EGFR Non-African American 16.7 (>60)
[2019-02-03 08:42] LABS: Potassium 6.2 mmol/L (3.5-5.0)
[2019-02-03] MEDS ORDERED: Atorvastatin* 80 MG TAB PO SCH (09:00)
[2019-02-03] MEDS ORDERED: Mirabegron (NF) 25 MG TAB PO SCH (09:00)
[2019-02-03] MEDS: Patiromer POWDER* 8.4 GM PAK PO SCH ×2 (09:11→11:10)
[2019-02-03] MEDS: Castor Oil (Pharmaceutic Aid)* 118 ML BTL PO SCH ×2 (11:08→14:09)
[2019-02-03] MEDS: Finasteride TAB* 5 MG PO SCH (11:45)
[2019-02-03 13:51] LABS: BUN/Creatinine Ratio 14.7 (8-20); Calcium 8.8 mg/dL (8.6-10.3); EGFR African American 21.3 (>60); EGFR Non-African American 17.6 (>60)
[2019-02-03] MEDS ORDERED: Castor Oil (Pharmaceutic Aid)* 118 ML BTL PO ONE (14:00)
[2019-02-03 14:11] LABS: Urine Appearance Clear; Urine Bilirubin Negative (Negative); Urine Blood Negative (Negative); Urine Color Yellow; Urine Glucose Negative (Negative); Urine Ketones Negative (Negative); Urine Nitrite Negative (Negative); Urine Protein Negative (Negative); Urine Specific Gravity 1.011 (1.010-1.030); Urine Urobilinogen Negative (Negative)
[2019-02-03 14:13] LABS: Urine Potassium Concentration 34.1 mmol/L
--- NOTE | 2019-02-03 14:40 | PN ---
Subjective Date of Service: 02/03/19 Interval History: 78 y/o M with history of CKD STAGE 3, dm, htn, CAD, BPH, COPD, TIA,SATHISH presented for concern for elevated creatinine and hyperkalemia which was reported by his PCP with whom he was following up. He had 2 days of diarrhea; total 4 episodes, loose watery which he thinks is a result of eating peanuts but no vomiting, fever and nausea. No hx of fall, trauma or any injury. No any change in medication other than his usual medication. No hx of chronic NSAID use. Reports muscle cramping which has been present for years. Reports of memory changes which he thinks is because of age. Now he doesnot have any complaint. His potassium was 6.2 this morning; Dr. Guerrero consulted and he suggested patiromer as he had no acute ekg changes. Patiromer given. [place] oil was ordered as per Dr. Guerrero suggestion. Repeat Potassium was 6.0 at 1400. No any bowel movement yet. Objective Active Medications: Albuterol/Ipratropium (Duoneb (Albuterol 2.5 Mg/Ipratropium 0.5 Mg)) 1 neb INH Q6H PRN PRN Reason: SOB/WHEEZING Atorvastatin Calcium (Lipitor*) 80 mg PO 1700 [facility] [place] Oil ([place] Oil (Pharmaceutic Aid)*) 30 ml PO Q4H [facility] Stop: 02/03/19 14:36 Last Admin: 02/03/19 14:09 Dose: 30 ml Finasteride (Proscar Tab*) 5 mg PO DAILY [facility] Last Admin: 02/03/19 11:45 Dose: 5 mg Heparin Sodium (Porcine) (Heparin Vial(*)) 5,000 units SUBCUT Q8HR [facility] Last Admin: 02/03/19 14:09 Dose: 5,000 units Sodium Chloride (Ns 0.9% 1000 Ml) 1,000 mls @ 75 mls/hr IV PER RATE [facility] Last Admin: 02/03/19 01:28 Dose: 75 mls/hr Nicotine (Nicotine Patch 21 Mg/24 Hr*) 1 patch TRANSDERM DAILY [facility] Patiromer (Veltassa Powder*) 8.4 gm PO 1200 [facility] Last Admin: 02/03/19 11:10 Dose: Not Given Pharmacy Profile Note (Nicotine Patch Removal Note*) 1 note PATCH OFF 2100 [place] Sodium Bicarbonate (Sodium Bicarbonate (Antacid)*) 1,300 mg PO TID [facility] Last Admin: 02/03/19 14:09 Dose: Not Given Tizanidine HCl (Zanaflex Tab*) 2 mg PO BID PRN PRN Reason: CRAMPING Vital Signs - 8 hr 02/03/19 02/03/19 02/03/19 07:15 08:00 11:15 Temperature 98.9 F 98.3 F Pulse Rate 71 66 Respiratory 20 18 18 Rate Blood Pressure 129/61 146/60 (mmHg) O2 Sat by Pulse 96 97 Oximetry Oxygen Devices in Use Now: None Exam: Patient is lying on a bed. No any acute distress. HEENT: Normal Lungs: Normal vesicular sound heard. Heart: S1/S2 heard; Murmur present on upper sternal border Abdomen: Soft, nondistended and nontender Extremities: Normal Neuro: Alert, conscious and oriented. CN intact. Moving all four extremity Result Diagrams: 02/03/19 07:15 02/03/19 13:26 Additional Lab and Data: Lab Results 02/02/19 Range/Units 19:24 WBC 7.6 (3.5-10.8) 10^3/uL RBC 4.25 (4.18-5.48) 10^6 /uL Hgb 12.8 L (14.0-18.0) g/dL Hct 38 L (42-52) % MCV 90 (80-94) fL MCH 30 (27-31) pg MCHC 33 (31-36) g/dL RDW 16 H (10-15) % Plt Count 243 (150-450) 10^3/uL MPV 8.3 (7.4-10.4) fL Neut % (Auto) 72.8 % Lymph % (Auto) 16.0 % [place] % (Auto) 9.0 % Eos % (Auto) 1.4 % Baso % (Auto) 0.8 % Absolute Neuts (auto) 5.6 (1.5-7.7) 10^3/ul Absolute Lymphs (auto) 1.2 (1.0-4.8) 10^3/ul Absolute Monos (auto) 0.7 (0-0.8) 10^3/ul Absolute Eos (auto) 0.1 (0-0.6) 10^3/ul Absolute Basos (auto) 0.1 (0-0.2) 10^3/ul Absolute Nucleated RBC 0.0 10^3/ul Nucleated RBC % 0.0 Assess/Plan/Problems-Billing Assessment: 78 y/o M with PMH of CKD stage 3, DM,HTN, CAD, AV replacement, TIA, SATHISH presented with abnormal creatinine and hyperkalemia. Treated with IVF and calcium gluc, insulin, dextrose, patriomer. No any bowel movement yet. - Patient Problems (1) Hyperkalemia Current Visit: Yes Status: Acute Code(s): E87.5 - HYPERKALEMIA SNOMED Code (s): 89716641 Comment: on presentation potassium was 7.3: calcium gluconate, insulin, dextrose, patiromer given. May be due to kidney injury or due to increased intake. Now potassium is 6. insulin with dextrose ordered. Treating with Patiromer as per nephrology consultation. Continue to monitor on telemetry and BMP. [place] oil given. (2) Acute on chronic renal failure Current Visit: Yes Status: Acute Code(s): N17.9 - ACUTE KIDNEY FAILURE, UNSPECIFIED; N18.9 - CHRONIC KIDNEY DISEASE, UNSPECIFIED SNOMED Code(s): 084193175 Comment: Baseline creatinine around 2. On presentation it was 4.37. May be prerenal. IVF given. NOw 3.57 Lisinoril on hold. Gentle hydration. Monitor creatinine. (3) HTN (hypertension) Current Visit: No Status: Acute Code(s): I10 - ESSENTIAL (PRIMARY) HYPERTENSION SNOMED Code(s): 16831550 Comment: Put on hold. Continue amlodipine as usual from tomorrow. (4) Diabetes Current Visit: No Status: Chronic Priority: Low Code(s): E11.9 - TYPE 2 DIABETES MELLITUS WITHOUT COMPLICATIONS SNOMED Code(s): 89284316 Comment: Says he d/c insulin 3 years ago as per his welding specialist consultation. HbA1C is 5.6 Eager to try kari. health promotion educator consultation ordered. (5) Hyperlipidemia Current Visit: Yes Status: Acute Code(s): E78.5 - HYPERLIPIDEMIA, UNSPECIFIED SNOMED Code(s): 97221723 Comment: On atorvastatin (6) BPH (benign prostatic hypertrophy) Current Visit: No Status: Chronic Priority: Low Code(s): N40.0 - BENIGN PROSTATIC HYPERPLASIA WITHOUT LOWER URINRY TRACT SYMP SNOMED Code(s): 092156666 Comment: On finasteride. (7) DVT prophylaxis Current Visit: No Status: Acute Priority: Medium Code(s): KRV2128 - SNOMED Code(s): 435825905 Comment: On heparin sc Status and Disposition: Inpatient; Nephrology following Attestation Documenting Resident: Rhiannon Supervising Physician: Garrison Attending/Supervising Physician Comment: Agree with plan as outlined in note here. Acute on chronic kidney failure complicated by hyperkalemia Loose stools for several days LIC[employer]ED [employer] likely contributing to EDILSON. Improving with fluids supportive of pre renal etiology Potassium remained high this evening. Another dose of insulin/D50 followed by 4 hours D10 at 50cc/hr and q4 FSG to prevent hypoglycemia then repeat BMP for potassium check Renal diet and counseled on low potassium diet included less peanuts Attestation: This service has been performed in part by a resident under the direction of a teaching physician.Garrison Núñez, performed the service, or was physically present during the critical, or johnson portions of the service, furnished by the resident. I participated in the management of the patient.
[2019-02-03] MEDS: Nicotine PATCH 21 MG/24 HR* PATCH TRANSDERM SCH (15:25)
[2019-02-03] MEDS ORDERED: Polyethylene Glycol 3350* 17 GM PACKET PO PRN (16:20)
[2019-02-03] MEDS: Atorvastatin* 80 MG TAB PO SCH (16:50)
[2019-02-03] MEDS ORDERED: Insulin REGULAR(*) 1 UNITS UNIT IV ONE (16:59)
[2019-02-03] MEDS ORDERED: Dextrose 50% VIAL 50 ml IV ONE (17:02)
[2019-02-03] MEDS ORDERED: Dextrose 50% VIAL 50 ml IV PUSH ONE (18:34)
[2019-02-03] MEDS ORDERED: D10W 250 ML BAG* 250 ML IV SCH (19:00)
[2019-02-03 20:35] LABS: BUN/Creatinine Ratio 15.8 (8-20); Calcium 8.3 mg/dL (8.6-10.3); EGFR African American 23.8 (>60); EGFR Non-African American 19.7 (>60)
[2019-02-03 20:51] LABS: Potassium 5.7 mmol/L (3.5-5.0)
[2019-02-03] MEDS: Nicotine Patch Removal NOTE PATCH OFF SCH (21:51)
[2019-02-04] MEDS: Heparin VIAL(*) 5000 UNITS/ML VIAL (FIVE THOUSAND) SUBCUT SCH ×3 (06:03→21:35)
[2019-02-04] MEDS: NS 0.9% 1000 ML** 1,000 ML IV SCH (06:03)
[2019-02-04 06:39] LABS: ABS Eosinophils 0.2 10^3/ul (0-0.6); ABS Lymphocytes 1.1 10^3/ul (1.0-4.8); ABS Monocytes 0.5 10^3/ul (0-0.8); ABS Neutrophils 3.5 10^3/ul (1.5-7.7); Eosinophil % 4.1 %; Hematocrit 32 % (42-52); Hemoglobin 11.1 g/dL (14.0-18.0); Lymphocyte % 20.6 %; Mean Corpuscular HGB Conc 35 g/dL (31-36); Mean Corpuscular Hemoglobin 31 pg (27-31); Mean Corpuscular Volume 90 fL (80-94); Mean Platelet Volume 8.2 fL (7.4-10.4); Nucleated Red Blood Cells % 0.1; Platelet Count 169 10^3/uL (150-450); Red Blood Count 3.56 10^6 /uL (4.18-5.48); Red Cell Distribution Width 16 % (10-15); White Blood Count 5.3 10^3/uL (3.5-10.8)
[2019-02-04 06:58] LABS: BUN/Creatinine Ratio 15.8 (8-20); Calcium 7.7 mg/dL (8.6-10.3); EGFR African American 25.5 (>60); EGFR Non-African American 21.1 (>60)
[2019-02-04 07:00] LABS: Potassium 5.3 mmol/L (3.5-5.0)
--- NOTE | 2019-02-04 07:20 | CONS ---
NEPHROLOGY CONSULTATION REPORT: DATE OF CONSULT: HISTORY OF PRESENT ILLNESS: Mr. Segura is a 78-year-old gentleman with a complex past medical histo ry. He has a history of chronic renal insufficiency, which is felt to be stage 4. He has a history of coronary artery disease and is status post coronary artery bypass grafting. 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 He presented because of worseni ng renal function and hyperkalemia. He had seen his primary care doctor and was sent to the emergenc y room, where he was found to be severely hyperkalemic. He had been having diarrhea for a few days p rior to admission. He blames this on eating peanuts. He apparently would take an entire bottle of d ry roasted peanuts and pour them into his mouth directly from the bottle. He was eating a great deal of these for days prior to coming to the hospital. He had noticed in the past that the peanuts caus ed him to have diarrhea. He denied chest pain, shortness of breath, orthopnea, orthostasis. He had had some muscle cramping. He has had occasional episodes of nausea and minimal vomiting. PAST MEDICAL HISTORY: His previous medical history is significant for hypertension, hyperlipidemia, chronic obstructive pulmonary disease. He has a history of cerebrovascular disease with a TIA in the past. He has an old history of alcoholism and he has the anemia of chronic renal diseases. MEDICATIONS: His medications at the time of admission included: 1. Lisinopril 40 mg daily. 2. Darifenacin extended release 15 mg daily. 3. Myrbetriq 50 mg daily. 4. Finasteride 5 mg daily. 5. Atorvastatin 80 mg daily. 6. Zanaflex 2 mg b.i.d. p.r.n. 7. Amlodipine 10 mg daily. 8. Furosemide 20 mg daily. ALLERGIES: He is allergic to CEPHALEXIN. FAMILY HISTORY: Significant in that his father as a result of alcoholism. His mother from emphysema. SOCIAL HISTORY: He smokes 1 to 2 cigars per day. He quit smoking cigarettes in 2014. REVIEW OF SYSTEMS: His review of systems, while grossly positive, is really related to the previous and present medical illness. PHYSICAL EXAM: He is an elderly black gentleman who appears to be quite comfortable. Blood pressure is 131/61, pulse of 66, respirations are 18. He is anicteric. His extraocular muscles are intact. His mucous membranes are moist. The neck revealed no jugular venous distention that I can see. Ther e were no nodes in the neck. The chest was clear. The heart revealed a regular rhythm. There was a grade 2/6 systolic murmur, which I heard best in the left upper sternal border. The abdomen was soft and nontender. Bowel sounds were positive. Bones, joints, extremities showed no cyanosis, clubbing , or edema. DIAGNOSTIC STUDIES/LAB DATA: A review of his laboratory studies revealed a white count of 5.8, hemog lobin of 11.5, hematocrit of 34. Sodium of 136, potassium 6.0, total CO2 of 22, chloride 111. His p otassium on presentation was 7.3. His BUN is 50, creatinine 3.41. His creatinine on presentation wa s 4.37. Calcium 8.3, magnesium 1.7. His glucose was 167. Urinalysis has not yet been performed; ho wever, he has been voiding. IMPRESSION: 1. Hyperkalemia. 2. Puvpe-vw-ambsuis renal insufficiency. 3. Diabetes mellitus type 2. 4. Coronary artery disease. 5. Status post aortic valve replacement. DISCUSSION: Ordinarily with diarrhea one would expect to see hypokalemia instead of hyperkalemia. H owever, I think he became prone to be dehydrated and reduced his renal function at a time when his po tassium intake in the form of peanuts was quite high. He has received a couple of doses of patiromer . In addition, he has received glucose and insulin to try to shift his potassium intracellularly. Un fortunately, he has not moved his bowels yet. I think he ought to get some castor oil and perhaps ev en some MiraLAX to assist passing the patiromer to bring his potassium back down. Obviously, he need s to be instructed on a 2 g potassium diet. He is able to eat and drink at the present time and as a result, I do not see a lot of the need for intravenous hydration. As soon as his potassium is at a reasonable level, I think he could be discharged back to the care of his primary sustainability consultant, Dr. Sa sammi Minor, in [place]. [id number]/[facility] #: [id number]
[2019-02-04] MEDS: Nicotine PATCH 21 MG/24 HR* PATCH TRANSDERM SCH (10:16)
[2019-02-04] MEDS: Sodium Bicarbonate (ANTACID)* 650 MG TAB PO SCH ×3 (10:17→21:35)
[2019-02-04] MEDS: Finasteride TAB* 5 MG PO SCH (10:17)
[2019-02-04] MEDS: Patiromer POWDER* 8.4 GM PAK PO SCH (13:17)
[2019-02-04] MEDS: Atorvastatin* 80 MG TAB PO SCH (17:01)
--- NOTE | 2019-02-04 17:15 | PN ---
Subjective Date of Service: 02/04/19 Interval History: Patient doesnot have any complaint. Had 3 bowel movement yesterday. On renal diet. Objective Active Medications: Albuterol/Ipratropium (Duoneb (Albuterol 2.5 Mg/Ipratropium 0.5 Mg)) 1 neb INH Q6H PRN PRN Reason: SOB/WHEEZING Atorvastatin Calcium (Lipitor*) 80 mg PO 1700 [facility] Last Admin: 02/04/19 17:01 Dose: 80 mg Finasteride (Proscar Tab*) 5 mg PO DAILY [facility] Last Admin: 02/04/19 10:17 Dose: 5 mg Heparin Sodium (Porcine) (Heparin Vial(*)) 5,000 units SUBCUT Q8HR [facility] Last Admin: 02/04/19 13:32 Dose: 5,000 units Sodium Chloride (Ns 0.9% 1000 Ml) 1,000 mls @ 75 mls/hr IV PER RATE [facility] Last Admin: 02/04/19 06:03 Dose: 75 mls/hr Nicotine (Nicotine Patch 21 Mg/24 Hr*) 1 patch TRANSDERM DAILY [facility] Last Admin: 02/04/19 10:16 Dose: Not Given Patiromer (Veltassa Powder*) 8.4 gm PO 1200 [facility] Last Admin: 02/04/19 13:17 Dose: 8.4 gm Pharmacy Profile Note (Nicotine Patch Removal Note*) 1 note PATCH OFF 2100 [facility] Last Admin: 02/03/19 21:51 Dose: 1 note Polyethylene Glycol/Electrolytes (Miralax*) 17 gm PO DAILY PRN PRN Reason: CONSTIPATION Sodium Bicarbonate (Sodium Bicarbonate (Antacid)*) 1,300 mg PO TID [facility] Last Admin: 02/04/19 13:32 Dose: 1,300 mg Tizanidine HCl (Zanaflex Tab*) 2 mg PO BID PRN PRN Reason: CRAMPING Vital Signs - 8 hr 02/04/19 15:21 Temperature 97.6 F Pulse Rate 64 Respiratory 16 Rate Blood Pressure 145/69 (mmHg) O2 Sat by Pulse 100 Oximetry Oxygen Devices in Use Now: None Exam: Patient is lying on a bed. No any acute distress. HEENT: Normal Lungs: Normal vesicular sound heard. Heart: S1/S2 heard; Murmur present on upper sternal border Abdomen: Soft, nondistended and nontender Extremities: Normal Neuro: Alert, conscious and oriented. CN intact. Moving all four extremity Result Diagrams: 02/04/19 06:03 02/04/19 06:03 Additional Lab and Data: Lab Results 02/02/19 Range/Units 19:24 WBC 7.6 (3.5-10.8) 10^3/uL RBC 4.25 (4.18-5.48) 10^6 /uL Hgb 12.8 L (14.0-18.0) g/dL Hct 38 L (42-52) % MCV 90 (80-94) fL MCH 30 (27-31) pg MCHC 33 (31-36) g/dL RDW 16 H (10-15) % Plt Count 243 (150-450) 10^3/uL MPV 8.3 (7.4-10.4) fL Neut % (Auto) 72.8 % Lymph % (Auto) 16.0 % [place] % (Auto) 9.0 % Eos % (Auto) 1.4 % Baso % (Auto) 0.8 % Absolute Neuts (auto) 5.6 (1.5-7.7) 10^3/ul Absolute Lymphs (auto) 1.2 (1.0-4.8) 10^3/ul Absolute Monos (auto) 0.7 (0-0.8) 10^3/ul Absolute Eos (auto) 0.1 (0-0.6) 10^3/ul Absolute Basos (auto) 0.1 (0-0.2) 10^3/ul Absolute Nucleated RBC 0.0 10^3/ul Nucleated RBC % 0.0 Assess/Plan/Problems-Billing Assessment: 78 y/o M with PMH of CKD stage 3, DM,HTN, CAD, AV replacement, TIA, SATHISH presented with abnormal creatinine and hyperkalemia. Treated with IVF and calcium gluc, insulin, dextrose, patriomer. 3 BM yesterday evening. Potassium decreasing. - Patient Problems (1) Hyperkalemia Current Visit: Yes Status: Acute Code(s): E87.5 - HYPERKALEMIA SNOMED Code (s): 11378883 Comment: on presentation potassium was 7.3: calcium gluconate, insulin, dextrose, patiromer given. May be due to kidney injury or due to increased intake. Now potassium is 5.2 Treating with Patiromer as per nephrology consultation. Continue to monitor on telemetry and BMP. [place] oil given. (2) Acute on chronic renal failure Current Visit: Yes Status: Acute Code(s): N17.9 - ACUTE KIDNEY FAILURE, UNSPECIFIED; N18.9 - CHRONIC KIDNEY DISEASE, UNSPECIFIED SNOMED Code(s): 053886060 Comment: Baseline creatinine around 2. On presentation it was 4.37. May be prerenal. IVF given. NOw 2.92 Lisinoril on hold. Gentle hydration. Monitor creatinine. (3) HTN (hypertension) Current Visit: No Status: Acute Code(s): I10 - ESSENTIAL (PRIMARY) HYPERTENSION SNOMED Code(s): 70212611 Comment: Put on hold. Continue amlodipine as usual from tomorrow. (4) Diabetes Current Visit: No Status: Chronic Priority: Low Code(s): E11.9 - TYPE 2 DIABETES MELLITUS WITHOUT COMPLICATIONS SNOMED Code(s): 27616312 Comment: Says he d/c insulin 3 years ago as per his sock ironer consultation. HbA1C is 5.6 Eager to try kari. agricultural extension educator consultation ordered. (5) Hyperlipidemia Current Visit: Yes Status: Acute Code(s): E78.5 - HYPERLIPIDEMIA, UNSPECIFIED SNOMED Code(s): 91019271 Comment: On atorvastatin (6) BPH (benign prostatic hypertrophy) Current Visit: No Status: Chronic Priority: Low Code(s): N40.0 - BENIGN PROSTATIC HYPERPLASIA WITHOUT LOWER URINRY TRACT SYMP SNOMED Code(s): 925952839 Comment: On finasteride. (7) DVT prophylaxis Current Visit: No Status: Acute Priority: Medium Code(s): THE4605 - SNOMED Code(s): 946285527 Comment: On heparin sc Status and Disposition: Inpatient; Nephrology following Attending: Cortez Ji Attestation Documenting Resident: Ivette Jurado Supervising Physician: Cortez Ji Attending/Supervising Physician Comment: EDILSON in setting of loose stools as well as poor PO intake. Drinks less than 1 bottle of water per day Encouraged better PO intake and less peanut intake Kidney fxn improving with IVF Potassium check in AM Attestation: This service has been performed in part by a resident under the direction of a teaching physician.I, Cortez Ji, performed the service, or was physically present during the critical, or johnson portions of the service, furnished by the resident. I participated in the management of the patient.
[2019-02-04] MEDS: Nicotine Patch Removal NOTE PATCH OFF SCH (19:17)
[2019-02-05] MEDS: Heparin VIAL(*) 5000 UNITS/ML VIAL (FIVE THOUSAND) SUBCUT SCH ×3 (06:15→21:49)
[2019-02-05 06:25] LABS: BUN/Creatinine Ratio 19.3 (8-20); Calcium 8.3 mg/dL (8.6-10.3); EGFR African American 29.3 (>60); EGFR Non-African American 24.2 (>60)
[2019-02-05 06:36] LABS: Potassium 5.7 mmol/L (3.5-5.0)
[2019-02-05] MEDS ORDERED: Patiromer POWDER* 8.4 GM PAK PO SCH (07:30)
[2019-02-05] MEDS: Polyethylene Glycol 3350* 17 GM PACKET PO SCH (11:52)
[2019-02-05] MEDS: amLODIPine TAB* 5 MG PO SCH (11:53)
[2019-02-05] MEDS: Finasteride TAB* 5 MG PO SCH (11:53)
[2019-02-05] MEDS: Nicotine PATCH 21 MG/24 HR* PATCH TRANSDERM SCH (11:53)
[2019-02-05] MEDS: Sodium Bicarbonate (ANTACID)* 650 MG TAB PO SCH ×3 (11:54→21:49)
[2019-02-05 16:45] LABS: BUN/Creatinine Ratio 19.7 (8-20); Blood Urea Nitrogen 46 mg/dL (6-24); CO2 Carbon Dioxide 17 mmol/L (22-32); Calcium 8.9 mg/dL (8.6-10.3); EGFR African American 33.1 (>60); EGFR Non-African American 27.4 (>60); Glucose 78 mg/dL (70-100); Sodium 138 mmol/L (135-145)
--- NOTE | 2019-02-05 16:45 | PN ---
Subjective Date of Service: 02/05/19 Interval History: No any complaint. wants to go home. No BM yesterday. 1 BM today at around noon. Ate salmon in dinner. K is 5.7. Increased frequency of patiromer and gave miralax. recheck K at 1600. Objective Active Medications: Albuterol/Ipratropium (Duoneb (Albuterol 2.5 Mg/Ipratropium 0.5 Mg)) 1 neb INH Q6H PRN PRN Reason: SOB/WHEEZING Amlodipine Besylate (Norvasc Tab*) 10 mg PO DAILY [facility] Last Admin: 02/05/19 11:53 Dose: 10 mg Atorvastatin Calcium (Lipitor*) 80 mg PO BEDTIME [facility] Finasteride (Proscar Tab*) 5 mg PO DAILY [facility] Last Admin: 02/05/19 11:53 Dose: 5 mg Heparin Sodium (Porcine) (Heparin Vial(*)) 5,000 units SUBCUT Q8HR [facility] Last Admin: 02/05/19 13:50 Dose: 5,000 units Sodium Chloride (Ns 0.9% 1000 Ml) 1,000 mls @ 75 mls/hr IV PER RATE [facility] Last Admin: 02/04/19 06:03 Dose: 75 mls/hr Nicotine (Nicotine Patch 21 Mg/24 Hr*) 1 patch TRANSDERM DAILY [facility] Last Admin: 02/05/19 11:53 Dose: Not Given Patiromer (Veltassa Powder*) 8.4 gm PO Q12HR@0600,1800 [facility] Pharmacy Profile Note (Nicotine Patch Removal Note*) 1 note PATCH OFF 2100 [facility] Last Admin: 02/04/19 19:17 Dose: Not Given Polyethylene Glycol/Electrolytes (Miralax*) 17 gm PO DAILY [facility] Last Admin: 02/05/19 11:52 Dose: 17 gm Sodium Bicarbonate (Sodium Bicarbonate (Antacid)*) 1,300 mg PO TID [facility] Last Admin: 02/05/19 13:50 Dose: 1,300 mg Tizanidine HCl (Zanaflex Tab*) 2 mg PO BID PRN PRN Reason: CRAMPING Vital Signs - 8 hr 02/05/19 02/05/19 11:12 15:09 Temperature 97.9 F 97.9 F Pulse Rate 70 68 Respiratory 18 18 Rate Blood Pressure 166/69 152/75 (mmHg) O2 Sat by Pulse 100 99 Oximetry Oxygen Devices in Use Now: None Exam: Patient is lying on a bed. No any acute distress. HEENT: Normal Lungs: Normal vesicular sound heard. Heart: S1/S2 heard; Murmur present on upper sternal border Abdomen: Soft, nondistended and nontender. Normal bowel movement. Extremities: Normal Neuro: Alert, conscious and oriented. CN intact. Moving all four extremity Result Diagrams: 02/04/19 06:03 02/05/19 16:22 Additional Lab and Data: Lab Results 02/02/19 Range/Units 19:24 WBC 7.6 (3.5-10.8) 10^3/uL RBC 4.25 (4.18-5.48) 10^6 /uL Hgb 12.8 L (14.0-18.0) g/dL Hct 38 L (42-52) % MCV 90 (80-94) fL MCH 30 (27-31) pg MCHC 33 (31-36) g/dL RDW 16 H (10-15) % Plt Count 243 (150-450) 10^3/uL MPV 8.3 (7.4-10.4) fL Neut % (Auto) 72.8 % Lymph % (Auto) 16.0 % [place] % (Auto) 9.0 % Eos % (Auto) 1.4 % Baso % (Auto) 0.8 % Absolute Neuts (auto) 5.6 (1.5-7.7) 10^3/ul Absolute Lymphs (auto) 1.2 (1.0-4.8) 10^3/ul Absolute Monos (auto) 0.7 (0-0.8) 10^3/ul Absolute Eos (auto) 0.1 (0-0.6) 10^3/ul Absolute Basos (auto) 0.1 (0-0.2) 10^3/ul Absolute Nucleated RBC 0.0 10^3/ul Nucleated RBC % 0.0 Assess/Plan/Problems-Billing Assessment: 78 y/o M with PMH of CKD stage 3, DM,HTN, CAD, AV replacement, TIA, SATHISH presented with abnormal creatinine and hyperkalemia. Treated with IVF and calcium gluc, insulin, dextrose, patriomer. Potassium 5.7 today may be because of no BM causing increased gastic absorption. - Patient Problems (1) Hyperkalemia Current Visit: Yes Status: Acute Code(s): E87.5 - HYPERKALEMIA SNOMED Code (s): 71530933 Comment: on presentation potassium was 7.3: calcium gluconate, insulin, dextrose, patiromer given. May be due to kidney injury or due to increased intake. today potassium 5.7 Patiromer frequency increased. Recheck BMP at 1600 Miralax given. (2) Acute on chronic renal failure Current Visit: Yes Status: Acute Code(s): N17.9 - ACUTE KIDNEY FAILURE, UNSPECIFIED; N18.9 - CHRONIC KIDNEY DISEASE, UNSPECIFIED SNOMED Code(s): 783423813 Comment: Baseline creatinine around 2. On presentation it was 4.37. May be prerenal. IVF given. NOw 2.5 Lisinoril on hold. Gentle hydration. Monitor creatinine. (3) HTN (hypertension) Current Visit: No Status: Acute Code(s): I10 - ESSENTIAL (PRIMARY) HYPERTENSION SNOMED Code(s): 29517519 Comment: Lisinopril on hold Continue Amlodipine 10 mg daily (4) Diabetes Current Visit: No Status: Chronic Priority: Low Code(s): E11.9 - TYPE 2 DIABETES MELLITUS WITHOUT COMPLICATIONS SNOMED Code(s): 27637800 Comment: Says he d/c insulin 3 years ago as per his c d stripper consultation. HbA1C is 5.6 Eager to try krai. hospice educator consultation ordered. (5) Hyperlipidemia Current Visit: Yes Status: Acute Code(s): E78.5 - HYPERLIPIDEMIA, UNSPECIFIED SNOMED Code(s): 24792221 Comment: On atorvastatin (6) BPH (benign prostatic hypertrophy) Current Visit: No Status: Chronic Priority: Low Code(s): N40.0 - BENIGN PROSTATIC HYPERPLASIA WITHOUT LOWER URINRY TRACT SYMP SNOMED Code(s): 888270845 Comment: On finasteride. (7) DVT prophylaxis Current Visit: No Status: Acute Priority: Medium Code(s): NBT4773 - SNOMED Code(s): 007437375 Comment: On heparin sc Status and Disposition: Inpatient; Nephrology following Attending: Cortez Ji Attestation Documenting Resident: Ivette Jurado Supervising Physician: Cortez Ji Attending/Supervising Physician Comment: Agree with plan as outlined in Dr. Jurado's note from today unless indicated here Potassium up today despite improving creatinine Notable for 2 servings of [place] for dinner last night - note sent to nutrition to limit K (in addition to renal diet) Increase patiromer Repeat BMP hemolysed this evening c/w IVF recheck now and again in AM Attestation: This service has been performed in part by a resident under the direction of a teaching physician.I, Cortez Ji, performed the service, or was physically present during the critical, or johnson portions of the service, furnished by the resident. I participated in the management of the patient.
[2019-02-05 16:47] LABS: Anion Gap 7 mmol/L (2-11); Chloride 114 mmol/L (101-111)
[2019-02-05] MEDS: Patiromer POWDER* 8.4 GM PAK PO SCH (19:08)
[2019-02-05] MEDS ORDERED: Atorvastatin* 80 MG TAB PO SCH (21:00)
[2019-02-05] MEDS: Nicotine Patch Removal NOTE PATCH OFF SCH (23:31)
[2019-02-06 05:35] LABS: BUN/Creatinine Ratio 19.3 (8-20); Calcium 8.3 mg/dL (8.6-10.3); EGFR African American 35.8 (>60); EGFR Non-African American 29.6 (>60)
[2019-02-06 05:40] LABS: Potassium 5.2 mmol/L (3.5-5.0)
[2019-02-06] MEDS: Heparin VIAL(*) 5000 UNITS/ML VIAL (FIVE THOUSAND) SUBCUT SCH (05:46)
[2019-02-06] MEDS: Patiromer POWDER* 8.4 GM PAK PO SCH (05:46)
[2019-02-06] MEDS: Nicotine PATCH 21 MG/24 HR* PATCH TRANSDERM SCH (08:03)
[2019-02-06] MEDS: amLODIPine TAB* 5 MG PO SCH (08:03)
[2019-02-06] MEDS: Finasteride TAB* 5 MG PO SCH (08:03)
[2019-02-06] MEDS: Sodium Bicarbonate (ANTACID)* 650 MG TAB PO SCH (08:03)
[2019-02-06] MEDS: Polyethylene Glycol 3350* 17 GM PACKET PO SCH (08:03)
[2019-02-06] MEDS ORDERED: Magnesium CITRATE* 300 ML BTL PO ONE (08:13)
[2019-02-06 08:59] VITALS: BP 156/67
--- NOTE | 2019-02-06 11:14 | DS ---
CC: Dr. Bolden* DISCHARGE SUMMARY: DATE OF ADMISSION: 02/03/19 DATE OF DISCHARGE: 02/06/19 PRIMARY CARE PROVIDER: Dr. Bolden. DISPOSITION ON DISCHARGE: Home. CONDITION ON DISCHARGE: Good. PRIMARY DIAGNOSES: 1. Hyperkalemia, peak potassium 7.3. 2. Acute on chronic kidney failure, presenting creatinine 4.37. 3. Hypoglycemia in the setting of insulin administration. SECONDARY DIAGNOSES: Include: 1. Metabolic acidosis. 2. History of coronary artery disease, status post coronary artery bypass graft. 3. Hypertension. 4. Dyslipidemia. 5. Type 2 diabetes, currently diet controlled. 6. Chronic obstructive pulmonary disease, not on home oxygen. 7. History of transient ischemic attack. 8. History of alcoholism, currently in remission. 9. Anemia. 10. Tobacco abuse. 11. History of aortic valve replacement in 2014. PERTINENT LABORATORY DATA: Potassium on presentation 7.3, on discharge 5.2. Creatinine on presentation 4.37, on discharge 2.18. Hemoglobin A1c is 5.6. HISTORY OF PRESENT ILLNESS AND HOSPITAL COURSE: This is a 78-year-old man with past medical history as outlined in the history of present of illness on the day of admission, presented to the hospital after routine lab checks found with hyperkalemia and worsening acute on chronic kidney failure. In the emergency room, hyperkalemia as noted above, potassium was 7.3 associated with peak T waves on EKG, although no other clinical findings. He was treated urgently with calcium, insulin, and fluids dosed with patiromer, which is a potassium binder. In the setting of his initial dose of insulin to treat his hyperkalemia , he developed hypoglycemia to 48. The etiology of his hyperkalemia was thought to be in the setting of renal failure as well as concomitant intake of high potassium foods including "mouth fulls of peanuts." Of note, the patient indicated he drinks very little water daily, less than one 12 ounce bottle. He also indicates he had several days of loose stools prior to presentation, however, was notably constipated during the course of our hospital stay. It was quite difficult to facilitate bowel movements during the hospital stay, which is necessary for the effectiveness of the patiromer as potassium dropped slowly. For this reason, he will be discharged on several additional days of patiromer with followup BMP for potassium check on 02/09/19 with results to be copied to Dr. Bolden. Additionally, in the setting of his acute on chronic kidney injury in the setting of dehydration, his furosemide was discontinued. Additionally, his lisinopril was discontinued in the setting of hyperkalemia. His heart rate at rest is in the 60s. I have added hydrochlorothiazide the lowest dose for hypertension, on the day of discharge 156/51. The patient additionally had questions about whether he should continue metoprolol. Of note, we did not have this as active medication and review of records from Dr. Bell from January 2018 indicated that she had agreed with him stopping this medication at the time secondary to his concerns for erectile dysfunction, which is still his primary concern at this time. In followup, please; 1. Review BMP ordered for 02/09/19 for potassium level as well as kidney function. If potassium level is normalized, please discontinue patiromer , otherwise continue. Can consider continuing longer than 5 days, for which I have prescribed this patient. 2. At followup, evaluate volume status. Please note again that furosemide was discontinued and hydrochlorothiazide was started. 3. Blood pressure evaluation secondary to changes as indicated above. 4. Continue to career counselor smoking cessation, which the patient is currently contemplative for cessation. 5. No other specific labs or vitals that need followup. Reasons to return to the hospital including but not limited to recurrent or worsening symptoms including weakness, paresthesias, chest pain, shortness of breath, nausea, vomiting, lightheadedness, loss of consciousness or near loss of consciousness, inability to obtain or tolerate medications, or constipation while on patiromer over the next week were discussed with the patient and he acknowledged understanding. TIME SPENT: Greater than 45 minutes was spent on the discharge of this patient , greater than half was spent [id number] with the patient. [id number]/[id number] #: [id number]
== END 2019-02-06 10:08 | disposition home or self-care (01) | DRG 425 ==
LOC: ED 18:24 → MEDTELE 02-03 00:12
PROVIDERS: ADMIT Internal Medicine; ATTEND Internal Medicine
DX: E87.5 Hyperkalemia (principal); N18.4 Chronic kidney disease, stage 4 (severe); N17.9 Acute kidney failure, unspecified; E11.22 Type 2 diabetes mellitus with diabetic chronic kidney disease; 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 chronic kidney disease with stage 1 through stage 4 chronic kidney disease, or unspecified chronic kidney disease; E11.649 Type 2 diabetes mellitus with hypoglycemia without coma; E87.2 Acidosis; D63.1 Anemia in chronic kidney disease; I25.10 Atherosclerotic heart disease of native coronary artery without angina pectoris; E78.5 Hyperlipidemia, unspecified; J44.9 Chronic obstructive pulmonary disease, unspecified; F10.21 Alcohol dependence, in remission; K59.00 Constipation, unspecified; R19.7 Diarrhea, unspecified; N40.0 Benign prostatic hyperplasia without lower urinary tract symptoms; Z86.73 Personal history of transient ischemic attack (TIA), and cerebral infarction without residual deficits; Z95.1 Presence of aortocoronary bypass graft; Z95.3 Presence of xenogenic heart valve; Z79.899 Other long term (current) drug therapy; Z88.8 Allergy status to other drugs, medicaments and biological substances; Z81.1 Family history of alcohol abuse and dependence; Z82.5 Family history of asthma and other chronic lower respiratory diseases; Z87.891 Personal history of nicotine dependence
CPT/HCPCS: 36415; 80048; 80053; 81003; 82436; 83036; 84133; 84300; 85025; 93005; 99284; A9270-GY; J0610; J1644

== ENCOUNTER 2019-02-24 13:41 | Inpatient (IN) | payer BC, MEDICARE ==
--- OUTSIDE RECORDS SUMMARY | 2019-02-24 14:00 | XMS REPORT | Summary of Care ---
:1940 Author Organization [facility] Address [address] [facility] [place] [address] Care Team Providers Name Role Phone Romina Bolden MD Primary Care Provider Marcela Donnelly MD Primary Residential Sales/Manager Instrumentation Reason for Visit Reason Comments Hospital Follow Up Encounter Details Date Type Department Care Team Description 02/14/2019 Office Visit [facility] discharge follow -up (Primary Dx); Practice Romina Kaur MD Hyperkalemia; [address] Acute renal failure superimposed on stage 4 chronic kidney disease, unspecified acute renal failure type ([facility]); [place] [address] [place] [address] Essential hypertension, benign; [phone] Type 2 diabetes mellitus with stage 4 chronic kidney disease, without long- term current use of insulin ([facility]) Allergies Active Allergy Reactions Severity Noted Date Comments Diego Inhibitors Other 12/09/2017 Elevated potassium CKD Keflex GI Reaction 07/24/2011 Lisinopril Other 02/14/2019 Very high potassium Losartan Other 12/09/2017 Elevated potassium, chronic kidney disease Nsaids Other 04/13/2018 CKD documented as of this encounter (statuses as of 02/14/2019) Medications Medication Sig Dispensed Refills Start End Status Date Date Aspirin 81 MG Oral Tab Take 1 Tab by 0 Active EC mouth DAILY. Blood Glucose by Does not 1 Kit 0 04/25/20 Active Monitoring Suppl (BLOOD apply route. 15 GLUCOSE METER) Does not 1. apply Kit Brand:Freestyl e Insulinx 2. Dx:E11.9 3. Insulin dependent 4. Test Blood Glucose 4 time(s) A DAY ----before meals & at bedtime Doxercalciferol Take by 0 Active (HECTOROL) 0.5 MCG Oral mouth. Cap albuterol HFA Take 2 Puffs 1 Inhaler 1 05/29/20 Active (VENTOLIN) 108 (90 by inhalation 17 Base) MCG/ACT EVERY SIX Inhalation Aero HOURS SolnIndications: NEEDED Chronic obstructive (wheezing). pulmonary disease, unspecified COPD type ([facility]) FREESTYLE INSULINX TEST USE 100 Each 11 09/26/19 Active In Vitro Strip DIRECTED THREE 18 TIMES A DAY Brinzolamide-Brimonidin Place 1 Drop 0 11/25/19 Active e (SIMBRINZA) 1-0.2 % to the 18 Ophthalmic Suspension external eye THREE TIMES DAILY. Left eye bimatoprost (LUMIGAN) Place 1 Drop 0 11/25/19 Active 0.03 % Ophthalmic in both eyes 18 Solution EVERY BEDTIME. 1 drop both eyes tiotropium (SPIRIVA Take 18 mcg by 0 Active HANDIHALER) 18 MCG inhalation Inhalation Cap DAILY. Cyanocobalamin (VITAMIN Place 1 Tab 30 Tab 0 03/12/20 Active B-12) 1000 MCG under tongue 18 Sublingual SL DAILY. TabIndications: Malaise and fatigue loratadine Take 1 Tab by 30 Tab 0 04/13/20 Active (CLARITIN,ALAVERT) 10 mouth EVERY 18 MG Oral TabIndications: OTHER DAY. COPD with acute bronchitis ([facility]) Tadalafil (CIALIS) 20 Take 1 Tab by 10 Tab 1 05/18/20 Active MG Oral TabIndications: mouth 18 Erectile dysfunction, NEEDED (sex unspecified erectile activity). dysfunction type Tizanidine 2 MG Oral Take 2 mg by 30 Tab 5 07/13/19 Active TabIndications: Muscle mouth EVERY 19 spasm BEDTIME NEEDED (muscle cramps). Darifenacin Take 1 Tab by 30 Tab 3 07/16/19 Active Hydrobromide 15 MG Oral mouth DAILY. 19 TABLET SR 24 HR Nicotine NASAL spray 10 Gaston 1 Gaston 40 mL 3 08/27/19 Active mg/mL 10 MG/ML Nasal in nose FOUR 19 SolutionIndications: TIMES DAILY Smoker NEEDED (smoking). Tiotropium Take 2 INHL by 1 Inhaler 5 08/27/19 Active Elwin-Olodaterol inhalation 19 (STIOLTO RESPIMAT) DAILY. 2.5-2.5 MCG/ACT Inhalation Aero Soln atorvastatin (LIPITOR) TAKE ONE 30 Tab 5 10/26/19 Active 80 MG Oral TABLET BY 19 TabIndications: Mixed MOUTH ONCE hyperlipidemia DAILY Mirabegron ER 50 MG Take 50 mg by 60 Tab 3 11/12/19 Active Oral TABLET SR 24 HR mouth DAILY. 19 finasteride (PROSCAR) 5 TAKE ONE 90 Tab 1 01/11/20 Active MG Oral TabIndications: TABLET BY 19 Benign nodular MOUTH ONCE prostatic hyperplasia DAILY without lower urinary tract symptoms Polyvinyl Place to the 0 Active Alcohol-Povidone external eye. (REFRESH OP) amLodipine (NORVASC) 5 Take 1 Tab by 90 Tab 1 02/03/20 Active MG Oral TabIndications: mouth DAILY. 19 Essential hypertension, New lower dose benign patiromer (VELTASSA) Take 8.4 g by 0 Active 8.4 g Oral Pack mouth DAILY NEEDED (hyperkalemia) . Polyethylene Glycol Take 17 g by 0 Active 3350 (MIRALAX PO) mouth DAILY NEEDED (constipation) . hydrochlorothiazide Take 1 Cap by 30 Cap 3 02/15/20 Active (HCTZ, ORETIC) 12.5 MG mouth DAILY. 19 Oral CapIndications: Essential hypertension, benign acetaminophen (TYLENOL) Take 500 mg by 0 Discontinued 500 MG Oral Tab mouth EVERY 019 (Therapy SIX HOURS Completed) NEEDED for Pain. metoprolol (LOPRESSOR) Take 12.5 mg 0 Discontinued 25 MG Oral Tab by mouth TWICE 019 (Provider DAILY. Discontinued) furosemide (LASIX) 20 Take 1 Tab by 30 Tab 5 02/03/20 Discontinued MG Oral TabIndications: mouth DAILY 19 019 (Provider Essential hypertension, NEEDED (leg Discontinued) benign swelling). lisinopril (PRINIVIL, Take 1 Tab by 30 Tab 3 02/03/20 Discontinued ZESTRIL) 20 MG Oral mouth DAILY. 19 019 (Provider TabIndications: New lower dose Discontinued) Essential hypertension, benign hydrochlorothiazide Take 12.5 mg 0 Discontinued (HCTZ, ORETIC) 12.5 MG by mouth 019 (Reorder) Oral Cap DAILY. documented as of this encounter (statuses as of 02/14/2019) Active Problems Problem Noted Date Type 2 diabetes mellitus with stage 4 chronic kidney disease, without 2018 long-term current use of insulin Trochanteric bursitis of both hips 09/17/2017 Hip pain, bilateral 08/07/2017 Coronary artery disease involving cahto coronary artery of cahto heart 01/15 without angina pectoris Type 2 diabetes mellitus with stage 4 chronic kidney disease 01/16/2016 Gross hematuria 08/03/2015 Elevated prostate specific antigen (PSA) 08/03/2015 CAD (coronary artery disease) 11/07/2014 Overview: CABG September 2014 Hx of CABG 06/22/2014 Overview: Dr.Lynn Bell is his acute care occupational therapist Obesity, unspecified 06/10/2012 Overview: BMI 31 This [...] CABG September 2014, Dr. Catrachito Casas at [facility] in [place] S/P AVR (aortic valve replacement) HTN (hypertension) Gout Sleep apnea Overview: never followed up on sleep study, agrees to set this up today 01/16/16 documented as of this encounter (statuses as of 02/14/2019) Resolved Problems Problem Noted Date Resolved Date Septicemia due to Enterobacter species 11/13/2017 07/01/2018 Type 2 diabetes mellitus with stage 4 chronic kidney 09/11/2016 03/12/2018 disease, with long-term current use of insulin Hyperkalemia 10/31/2011 07/31/2017 Overview: Due to renal disease Potassium Level 5.8-6 2011 Diabetes mellitus 03/12/2018 documented as of this encounter (statuses as of 02/14/2019) Immunizations Name Administration Dates Next Due Depo [...] Sign Reading Time Taken Comments Blood Pressure 128/70 02/14/2019 11:33 AM EDT Pulse 57 02/14/2019 11:33 AM EDT Temperature - - Respiratory Rate - - Oxygen Saturation 99% 02/14/2019 11:33 AM EDT Inhaled Oxygen Concentration - - Weight 74.8 kg (165 lb) 02/14/2019 11:33 AM EDT Height 170.2 cm (5' 7") 02/14/2019 11:33 AM EDT Body Mass Index 25.84 02/14/2019 11:33 AM EDT documented in this encounter Patient Instructions Patient InstructionsRomina Bolden MD - 02/14/2019 11:20 AM EDT Due to your kidney disease, do not take more than 1 tizanidine daily. B12 1000 mcg daily can help memory in some cases, so you can continue this. I sent in a refill of the HCTZ started by the hospital. Wait for today's lab results prior to filling. We will call you with the results. Please avoid high potassium foods, drink plenty of water. Continue your current medications. I ordered you potassium level and kidney function laboratory tests today and will notify you of the results. Patient Education Low Potassium Diet About this topic Potassium is a mineral found in many foods. You can find it in whole grains, fruits, and vegetables.It is also found in milk, dried beans, and peas. Potassium helps to keep blood pressure normal. It also helps muscles, like the heart, to work the right way. Potassium stops too much calcium from beinglost through your urine. General You need to know how much potassium is in the food you eat. Read the food labels with care. They will show you how much potassium is in a serving. Reading the labels will help you make healthy food choices. Be sure to follow your doctor's orders about how much potassium you are to eat. What will the results be? Your doctor is ordering a special diet for you. This will help control your health problem. Your potassium levels will be in a normal range. What changes to diet are needed? You will have to watch how much potassium is in the foods you eat. Your doctor will talk to you about the right amount of potassium for you. When is this diet used? This diet is used when your potassium level is high. What foods are good to eat? Low Potassium Foods (Eating more than one of serving of these foods can make it a high-potassium food.) Low Potassium Fruits Apple ? 1 medium Lemon Apple juice ? 1/2 cup (120 mL) [place] Applesauce ? 1/2 cup (120 mL) Mandarin oranges ? 1/2 cup (120 grams) Apricots, canned in juice ? 1/2 cup (120 mL) Peaches Fresh ? 1 small Canned ? 1/2 cup (120 grams) Blackberries Pears Fresh ? 1 small Canned ? 1/2 cup (120 grams) Blueberries ? 1 cup (240 grams) Pineapple ? 1/2 cup (120 grams) Cherries ? 10 cherries Pineapple juice ? 1/2 cup (120 mL) Cranberries ? 1/2 cup (120 grams) Plums ?1 whole Fruit cocktail ? 1/2 cup (120 grams) Raspberries ? 1/2 cup (120 mL) Grapes ? 1/2 cup (120 grams) Strawberries Grape juice ? 1 cup (240 mL) [place] ? 1 whole Grapefruit ? 1/2 whole Watermelon ? limit to 1 cup (240 grams) ?Low Potassium Vegetables (1 serving is 1/2 cup or 120 grams) Bee sprouts Mixed vegetables Asparagus ? 6 tong Mushrooms, fresh Beans, green Okra Beets, canned Onions Cabbage, green and red Parsley Carrots, cooked Peas, green Cauliflower Peppers [place] Fresh ? 1/2 ear Frozen ? 1/2 cup (120 grams) Radish [place] Summer squash Eggplant Turnips Endive Water chestnuts, canned Leached potatoes* Watercress Lettuce *Leached potatoes have less potassium. To make them, first peel and slice the potatoes. Then boil them in unsalted water. After cooking, let the potatoes sit in the water for at least 2 hours. Then drain, rinse, and drain the potatoes again. Low Potassium Meat Orozco Luncheon meats Beef Poultry Chicken Pork Fish Sausage Ham [place] Low Potassium Other Foods and Drinks Rice Cream Cheese Cream cheese Eggs Gravy Ice cream or sherbert Margarine Jello Ketchup, mustard, mayonnaise Cereal, not bran Pickles Noodles Nondairy creamer Pasta Nondairy whipped topping Bread and bread products (not whole grains) Salad dressing (if less than 25 mg potassium per serving) Cake ? afia, yellow Sour cream Sudanese, muffins, Indian muffins Whipped cream Tortillas, pitas Herbs and spices Waffles, pancakes Cooking oil Crackers Johnny-aid [place] chips Lemonade Pretzels Limeade Pies without chocolate or high-potassium foods Horseradish Cookies without nuts or chocolate Vinegar (balsamic, cider, or herbal) Tea ? limit to 16 ounces (480 mL) Soft drinks Coffee ? limit to 8 ounces (240 mL) Black tea (within limit set) Butter Tea (green or herbal) What foods should be limited or avoided? High Potassium Foods High Potassium Fruits Apricots Kiwi Avocado [place] Banana Nectarine Cantaloupe [place] Star Dates [place] North Star juice Dried fruits Papaya Figs, dried Pomegranate Grape juice Pomegranate juice Grapefruit Prunes Grapefruit juice Prune juice Honeydew Raisins High Potassium Vegetables [place] Ranchettes squash [place]abi Artichoke Lentils Bamboo shoots Legumes Baked beans Galdamez beans or wax beans Fraser squash Mushrooms, canned Beets, fresh then boiled Parsnips Black beans Potatoes, white and sweet [place] sprouts Pumpkin Turkish cabbage Refried beans Carrots, raw Rutabagas Celery Spinach, cooked [place] Squash ? acorn, winter or zucchini Dried beans and peas Tomatoes, tomato products Greens, except kale Turnip greens Taylor squash Vegetable juices Kale High Potassium Other Foods and Drinks Yogurt Amaretto Chocolate Flavored instant coffees Milk Specialty coffees such as cappuccino, latte, and mocha Nutritional supplements Molasses Miso Sugar (brown) Nuts and seeds Buttermilk Peanut butter Chocolate milk Tofu Eggnog Bran or granola cereal Evaporated milk Desserts with dried fruits, nuts, or chocolate (unless approved by dietitian) Hot cocoa Ice cream (unless made with allowed milk servings) Low-sodium milk Pudding (unless made with allowed milk servings) Malted milk Salad dressing (if more than 25 mg potassium per serving) Milkshakes Salt substitute Milk Salt free broth Soy milk Where can I learn more? National Kidney Foundation https://www.kidney.org/atoz/content/potassium National Kidney Foundation, [place] http://www.kidney.org.uk/help/qhpnfnz-jcetgboyxde-cwlm-the-nkf-/medical-info- factsheets-potassium/ Last Reviewed Date 2016-04-14 Consumer Information Use and Disclaimer This information is not specific medical advice and does not replace information you receive from your health care provider. This is only a brief summary of general information. It does NOT include allinformation about conditions, illnesses, injuries, tests, procedures, treatments, therapies, discharge instructions or life-style choices that may apply to you. You must talk with your health care provider for complete information about your health and treatment options. This information should not beused to decide whether or not to accept your health care providers advice, instructions or recommendations. Only your health care provider has the knowledge and training to provide advice that isright for you. Copyright Copyright 2018 [employer] and its affiliates and/or licensors. All rights reserved. documented in this encounter Progress Notes Romina Bolden MD - 02/14/2019 11:20 AM EDT Nursing Notes: Dorado AngeINDIANA 02/14/2019 11:44 AM Signed Chief Complaint Patient presents with Hospital Follow Up Patient has questions on if he should continue the b12 and what is max dose on tizanidine that he could take Chief Complaint: Hospital Follow up HPI: TCM Statement. Review of the hospitalization: I am seeing for transition of care following hospitalization at [facility]. The date of discharge was: 02/03-02/06/19 The discharge diagnosis was Hyperkalemia, acute on chronic renal failure with Cr 4.47, hypoglycemiawith insulin, metabolic acidosis, CAD, Hypertension, Diabetes, COPD Potassium on presentation 7.3, on discharge 5.2, creatinine on presentation 4.37 and on discharge 2.18 A1c is 5.6 EKG had peaked T waves. Hyperkalemia was treated urgently with IV calcium, insulin, fluids, po Patiromer potassium binder. He became hypoglycemic to 48 with the insulin.. He was discharged on several more days of Patriomer and BMP was ordered for 02/09. Furosemide and lisinopril were discontinued, as was metoprolol per Dr Bell for His ED concerns, HCTZ was added for hypertension. He is only taking amlodipine 5 mg daily. He often has leg camps at night. He is not taking the Patiromer, stating it tastes horrible He says he has diarrhea, hospital says he has constipation. He did take the miralax. He did not do his repeat laboratory tests on 02/09/19, so we will do today stat. He has an appointment with Dr Guerrero coming up but is not sure when I reviewed the discharge summary, discharge instructions, and pertinent additional documentation obtained during hospitalization. I reconciled the medications. I also reviewed the Transition of Care documentation done by staff. The tests that were not available at the time of discharge were reviewed. Additional tests which are not yet available include: BMP 02/09/19 Since hospitalization has patient improved? Yes, feels better but the high potassium scared him. Current patient concerns: Diet to limit potassium Patient Active Problem List Diagnosis Essential hypertension, benign Benign prostatic hyperplasia with urinary obstruction Type 2 diabetes mellitus with renal manifestations ([facility]) Leg cramps Tobacco use disorder Chronic renal insufficiency COPD (chronic obstructive pulmonary disease) ([facility]) Obesity, unspecified Aortic stenosis CAD (coronary artery disease) Gross hematuria Elevated prostate specific antigen (PSA) Coronary artery disease involving cahto coronary artery of cahto heart without angina pectoris Type 2 diabetes mellitus with stage 4 chronic kidney disease ([facility]) Hip pain, bilateral Trochanteric bursitis of both hips S/P AVR (aortic valve replacement) Hx of CABG HTN (hypertension) Gout Sleep apnea Type 2 diabetes mellitus with stage 4 chronic kidney disease, without long-term current use of insulin ([facility]) Past Medical History: Diagnosis Date Aortic stenosis BPH (benign prostatic hyperplasia) sees Dr. Grimes CAD (coronary artery disease) Chronic kidney disease (CKD) stage G4/A1, severely decreased glomerular filtration rate (GFR)between 15-29 mL/min/1.73 square meter and albuminuria creatinine ratio less than 30 mg/g ([facility]) Coronary artery disease Dr. Bell. h/o CHF 2014 Diabetes mellitus (HCC) Gout HTN (hypertension) Hx of CABG 2014 Dr.Lynn Bell is his acute care occupational therapist S/P AVR (aortic valve replacement) Sleep apnea never followed up on sleep study, agrees to set this up today 01/16/16 VHD (valvular heart disease) 2014 aortic valve replacement, equine Past Surgical History: Procedure Laterality Date CARDIAC CATH 03/26/12 IN [facility] AORTIC VALVE OPN ALLOGRAFT VALVE FREEHAND 10/04/2014 Porcine valve, Dr. Walsh, [facility] [place] Current Outpatient Medications: albuterol HFA (VENTOLIN) 108 (90 Base) MCG/ACT [...] A DAY, Disp: 100 Each, Rfl: 11 hydrochlorothiazide (HCTZ, ORETIC) 12.5 MG Oral Cap, Take 1 Cap by mouth DAILY., Disp: 30 Cap, Rfl: 3 loratadine (CLARITIN,ALAVERT) 10 MG Oral Tab, Take 1 Tab by mouth EVERY OTHER DAY., Disp: 30Tab, Rfl: 0 Mirabegron ER 50 MG Oral TABLET SR 24 HR, Take 50 mg by mouth DAILY., Disp: 60 Tab, Rfl: 3 Nicotine NASAL spray 10 mg/mL 10 MG/ML Nasal Solution, Gaston 1 Gaston in nose FOUR TIMES DAILY NEEDED (smoking)., Disp: 40 mL, Rfl: 3 patiromer (VELTASSA) 8.4 g Oral Pack, Take 8.4 g by mouth DAILY NEEDED (hyperkalemia)., Disp: , Rfl: Polyethylene Glycol 3350 (MIRALAX PO), Take 17 g by mouth DAILY NEEDED (constipation)., Disp: , Rfl: Polyvinyl Alcohol-Povidone (REFRESH OP), Place to the external eye., Disp: , Rfl: Tadalafil (CIALIS) 20 MG Oral Tab, Take 1 Tab by mouth NEEDED (sex activity)., Disp: 10 Tab, Rfl: 1 tiotropium (SPIRIVA HANDIHALER) 18 MCG Inhalation Cap, Take 18 mcg by inhalation DAILY., Disp: , Rfl: Tiotropium Elwin-Olodaterol (STIOLTO RESPIMAT) 2.5-2.5 MCG/ACT Inhalation Aero Soln, Take 2 INHL by inhalation DAILY., Disp: 1 Inhaler, Rfl: 5 Tizanidine 2 MG Oral Tab, Take 2 mg by mouth EVERY BEDTIME NEEDED ( muscle cramps)., Disp:30 Tab, Rfl: 5 Allergies Allergen Reactions Diego Inhibitors Other Elevated potassium CKD Keflex GI Reaction Lisinopril Other Very high potassium Losartan Other Elevated potassium, chronic kidney disease [...] file Gets together: Not on file Attends quaker service: Not on file Active member of [...] Concern Yes Social History Narrative Lives in [facility] [facility],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 History reviewed. No pertinent family history. Health Maintenance Topic Date Due ZOSTER IMMUNIZATION SERIES (1 of 2) 1992 INFLUENZA VACCINE (1) 02/20/2019 HEMOGLOBIN A1C 07/06/2019 DEPRESSION SCREENING 07/23/2019 FOOT EXAM 07/23/2019 LUNG CANCER SCREENING 01/12/2020 FALL RISK ASSESSMENT 02/15/2020 Diabetic Eye Exam 09/23/2020 HIV SCREENING Completed PNEUMOCOCCAL 65+YRS Completed HPV IMMUNIZATION SERIES Aged Out MENINGOCOCCAL VACCINE IMM Aged Out Review of Systems Constitution: Negative for chills, decreased appetite and fever. HENT: Negative for congestion. Eyes: Negative for visual disturbance. Cardiovascular: Negative for chest pain, dyspnea on exertion, leg swelling and palpitations. Respiratory: Negative for cough, shortness of breath and wheezing. Gastrointestinal: Positive for diarrhea. Negative for abdominal pain, constipation, hematochezia, melena, nausea and vomiting. Genitourinary: Negative for dysuria. Neurological: Negative for focal weakness and headaches. Exam: BP 128/70 (BP Location: Right arm, Patient Position: Sitting) | Pulse 57 | Ht 5' 7" (1.702 m) | Wt 165 lb (74.8 kg) | SpO2 99% | BMI 25.84 kg/m Physical Exam Constitutional: He is oriented to person, place, and time. He appears well- developed and well-nourished. No distress. HENT: Head: Normocephalic. Eyes: Conjunctivae are normal. Neck: Normal range of motion. Neck supple. No JVD present. Carotids 2/2 without bruit bilateraly Cardiovascular: Normal rate, regular rhythm and normal heart sounds. No murmur heard. Pulmonary/Chest: Effort normal and breath sounds normal. No respiratory distress. He has no wheezes.He has no rales. Abdominal: Soft. Bowel sounds are normal. He exhibits no distension. There is no tenderness. There is no rebound and no guarding. Musculoskeletal: He exhibits no edema. Lymphadenopathy: He has no cervical adenopathy. Neurological: He is alert and oriented to person, place, and time. Skin: Skin is dry. He is not diaphoretic. Psychiatric: He has a normal mood and affect. His behavior is normal. ASSESSMENT/PLAN: ICD-9-CM ICD-10-CM 1. Hospital discharge follow-up V67.59 Z09 2. Hyperkalemia 276.7 E87.5 MAGNESIUM LEVEL BASIC METABOLIC PANEL MAGNESIUM LEVEL BASIC METABOLIC PANEL CANCELED: BASIC METABOLIC PANEL 3. Acute renal failure superimposed on stage 4 chronic kidney disease, unspecified acute renal failure type ([facility]) 584.9 N17.9 CANCELED: BASIC METABOLIC PANEL 585.4 N18.4 4. Essential hypertension, benign 401.1 I10 hydrochlorothiazide (HCTZ, ORETIC) 12.5 MG Oral Cap 5. Type 2 diabetes mellitus with stage 4 chronic kidney disease, without long- term current use of insulin ([facility]) 250.40 E11.22 585.4 N18.4 Coordination of care. - Additional testing related to hospitilization was requested today: yes See orders. I confirmed the patient's understanding of the diagnosis and plan of care. Specific education that was provided today: Patient Instructions Due to your kidney disease, do not take more than 1 tizanidine daily. B12 1000 mcg daily can help memory in some cases, so you can continue this. I sent in a refill of the HCTZ started by the hospital. Wait for today's lab results prior to filling. We will call you with the results. Please avoid high potassium foods, drink plenty of water. Continue your current medications. I ordered you potassium level and kidney function laboratory tests today and will notify you of the results. Patient Education Low Potassium Diet About this topic Potassium is a mineral found in many foods. You can find it in whole grains, fruits, and vegetables.It is also found in milk, dried beans, and peas. Potassium helps to keep blood pressure normal. It also helps muscles, like the heart, to work the right way. Potassium stops too much calcium from beinglost through your urine. General You need to know how much potassium is in the food you eat. Read the food labels with care. They will show you how much potassium is in a serving. Reading the labels will help you make healthy food choices. Be sure to follow your doctor's orders about how much potassium you are to eat. What will the results be? Your doctor is ordering a special diet for you. This will help control your health problem. Your potassium levels will be in a normal range. What changes to diet are needed? You will have to watch how much potassium is in the foods you eat. Your doctor will talk to you about the right amount of potassium for you. When is this diet used? This diet is used when your potassium level is high. What foods are good to eat? Low Potassium Foods (Eating more than one of serving of these foods can make it a high-potassium food.) Low Potassium Fruits Apple ? 1 medium Lemon Apple juice ? 1/2 cup (120 mL) [place] Applesauce ? 1/2 cup (120 mL) Mandarin oranges ? 1/2 cup (120 grams) Apricots, canned in juice ? 1/2 cup (120 mL) Peaches Fresh ? 1 small Canned ? 1/2 cup (120 grams) Blackberries Pears Fresh ? 1 small Canned ? 1/2 cup (120 grams) Blueberries ? 1 cup (240 grams) Pineapple ? 1/2 cup (120 grams) Cherries ? 10 cherries Pineapple juice ? 1/2 cup (120 mL) Cranberries ? 1/2 cup (120 grams) Plums ?1 whole Fruit cocktail ? 1/2 cup (120 grams) Raspberries ? 1/2 cup (120 mL) Grapes ? 1/2 cup (120 grams) Strawberries Grape juice ? 1 cup (240 mL) [place] ? 1 whole Grapefruit ? 1/2 whole Watermelon ? limit to 1 cup (240 grams) ?Low Potassium Vegetables (1 serving is 1/2 cup or 120 grams) Bee sprouts Mixed vegetables Asparagus ? 6 tong Mushrooms, fresh Beans, green Okra Beets, canned Onions Cabbage, green and red Parsley Carrots, cooked Peas, green Cauliflower Peppers [place] Fresh ? 1/2 ear Frozen ? 1/2 cup (120 grams) Radish [place] Summer squash Eggplant Turnips Endive Water chestnuts, canned Leached potatoes* Watercress Lettuce *Leached potatoes have less potassium. To make them, first peel and slice the potatoes. Then boil them in unsalted water. After cooking, let the potatoes sit in the water for at least 2 hours. Then drain, rinse, and drain the potatoes again. Low Potassium Meat Orozco Luncheon meats Beef Poultry Chicken Pork Fish Sausage Ham [place] Low Potassium Other Foods and Drinks Rice Cream Cheese Cream cheese Eggs Gravy Ice cream or sherbert Margarine Jello Ketchup, mustard, mayonnaise Cereal, not bran Pickles Noodles Nondairy creamer Pasta Nondairy whipped topping Bread and bread products (not whole grains) Salad dressing (if less than 25 mg potassium per serving) Cake ? afia, yellow Sour cream Sudanese, muffins, Indian muffins Whipped cream Tortillas, pitas Herbs and spices Waffles, pancakes Cooking oil Crackers Johnny-aid [place] chips Lemonade Pretzels [place]imeade Pies without chocolate or high-potassium foods Horseradish Cookies without nuts or chocolate Vinegar (balsamic, cider, or herbal) Tea ? limit to 16 ounces (480 mL) Soft drinks Coffee ? limit to 8 ounces (240 mL) Black tea (within limit set) Butter Tea (green or herbal) What foods should be limited or avoided? High Potassium Foods High Potassium Fruits Apricots Kiwi Avocado [place] Banana Nectarine Cantaloupe [place] Dates [place] juice Dried fruits Papaya Figs, dried Pomegranate Grape juice Pomegranate juice Grapefruit Prunes Grapefruit juice Prune juice Honeydew Raisins High Potassium Vegetables [place]on Ranche[place] squash [place] Artichoke Lentils Bamboo shoots Legumes Baked beans Galdamez beans or wax beans [place] squash Mushrooms, canned Beets, fresh then boiled Parsnips Black beans Potatoes, white and sweet [place] sprouts Pumpkin Turkish cabbage Refried beans Carrots, raw Rutabagas Celery Spinach, cooked [place] Squash ? acorn, winter or zucchini Dried beans and peas Tomatoes, tomato products Greens, except kale Turnip greens Taylor squash Vegetable juices Kale High Potassium Other Foods and Drinks Yogurt Amaretto Chocolate Flavored instant coffees Milk Specialty coffees such as cappuccino, latte, and mocha Nutritional supplements Molasses Miso Sugar (brown) Nuts and seeds Buttermilk Peanut butter Chocolate milk Tofu Eggnog Bran or granola cereal Evaporated milk Desserts with dried fruits, nuts, or chocolate (unless approved by dietitian) Hot cocoa Ice cream (unless made with allowed milk servings) Low-sodium milk Pudding (unless made with allowed milk servings) Malted milk Salad dressing (if more than 25 mg potassium per serving) Milkshakes Salt substitute Milk Salt free broth Soy milk Where can I learn more? National Kidney Foundation https://www.kidney.org/atoz/content/potassium National Kidney Foundation, [place] http://www.kidney.org.uk/help/ilrykcv-yqqyxcnawij-fxab-the-nkf-/medical-info- factsheets-potassium/ Last Reviewed Date 2016-04-14 Consumer Information Use and Disclaimer This information is not specific medical advice and does not replace information you receive from your health care provider. This is only a brief summary of general information. It does NOT include allinformation about conditions, illnesses, injuries, tests, procedures, treatments, therapies, discharge instructions or life-style choices that may apply to you. You must talk with your health care provider for complete information about your health and treatment options. This information should not beused to decide whether or not to accept your health care providers advice, instructions or recommendations. Only your health care provider has the knowledge and training to provide advice that isright for you. Copyright Copyright 2018 [employer] and its affiliates and/or licensors. All rights reserved. Author: Romina Bolden MD 02/14/2019 12:09 documented in this encounter Plan of Treatment Date Type Specialty Care Team Description 02/24/2019 Office Visit Pulmonary Jaswinder Calles MD [address] [place] [address] 03/09/2019 Office Visit Family Practice Romina Bolden MD [address] [place] [address] [phone] Name Type Priority Associated Diagnoses Date/Time MAGNESIUM LEVEL Lab Routine Hyperkalemia 02/14/2019 12:09 PM EDT BASIC METABOLIC PANEL Lab STAT Hyperkalemia 02/14/2019 12:09 PM EDT Name Type Priority Associated Diagnoses Order Schedule MAGNESIUM LEVEL Lab Routine Hyperkalemia Expected: 02/14/2019 (Approximate), Expires: 02/15/2020 BASIC METABOLIC PANEL Lab STAT Hyperkalemia Expected: 02/14/2019 (Approximate), Expires: 02/15/2020 Health Maintenance Due Date Last Done Comments ZOSTER IMMUNIZATION SERIES 1992 (1 of 2) INFLUENZA VACCINE (#1) 2019 05/04/2018, 03/24/2017, 04/07/2016, Additional history exists HEMOGLOBIN A1C 07/06/2019 01/03/2019, 08/11/2018, 03/12/2018, Additional history exists DEPRESSION SCREENING 07/23/2019 07/23/2018 FOOT EXAM 07/23/2019 07/23/2018, 07/23/2018, 07/23/2018, Additional history exists LUNG CANCER SCREENING 01/12/2020 01/11/2019, 01/11/2019, 01/05/2019, Additional history exists FALL RISK ASSESSMENT 02/15/2020 02/14/2019, 02/14/2019 Diabetic Eye Exam 09/23/2020 09/23/2018, 04/05/2018, 11/11/2017, [...] Author Type Problems Progress Blood Pressure Blood 128/70 No Yuan, < 140/90 Pressure (02/14/2019 Romina Kaur, 11:33 AM EDT) Note: This is an individualized treatment (blood [...] < 7.0 Diabetes 5.8 (01/03/2019 3:45 No Romina Bolden EDTBrennen Kaur MD Note: This is an individualized treatment [...] filedocumented in this encounter Visit Diagnoses Diagnosis Hospital discharge follow-up - Primary Other follow-up examination Hyperkalemia Hyperpotassemia Acute renal failure superimposed on stage 4 chronic kidney disease, unspecified acute renal failure type (HCC) Essential hypertension, benign Type 2 diabetes mellitus with stage 4 chronic kidney disease, without long-term current use of insulin (HCC) documented in this encounter Insurance Payer Benefit Plan / Subscriber ID Effective Dates Phone Address Type Group [employer] xxxxxxxxxxxx 2016-Present [employer] [place] (Work) [place] [address] documented as of this encounter
[2019-02-24 14:15] LABS: ABS Basophils 0.1 10^3/ul (0-0.2); ABS Eosinophils 0.1 10^3/ul (0-0.6); ABS Lymphocytes 0.9 10^3/ul (1.0-4.8); ABS Monocytes 0.9 10^3/ul (0-0.8); ABS Neutrophils 14.4 10^3/ul (1.5-7.7); Eosinophil % 0.4 %; Hematocrit 35 % (42-52); Hemoglobin 11.6 g/dL (14.0-18.0); Lymphocyte % 5.4 %; Mean Corpuscular HGB Conc 34 g/dL (31-36); Mean Corpuscular Hemoglobin 30 pg (27-31); Mean Corpuscular Volume 89 fL (80-94); Mean Platelet Volume 7.7 fL (7.4-10.4); Platelet Count 251 10^3/uL (150-450); Red Blood Count 3.88 10^6 /uL (4.18-5.48); Red Cell Distribution Width 16 % (10-15); White Blood Count 16.3 10^3/uL (3.5-10.8)
[2019-02-24 14:33] LABS: Albumin 4.1 g/dL (3.2-5.2); Albumin/Globulin Ratio 1.6 (1-3); BUN/Creatinine Ratio 17.1 (8-20); C Reactive Protein 55.62 mg/L (<8.01); Calcium 8.7 mg/dL (8.6-10.3); EGFR African American 23.3 (>60); EGFR Non-African American 19.3 (>60); Globulin 2.6 g/dL (2-4); Total Bilirubin 0.7 mg/dL (0.2-1.0); Total Protein 6.7 g/dL (6.4-8.9)
[2019-02-24 14:41] LABS: Potassium 5.5 mmol/L (3.5-5.0)
[2019-02-24] MEDS ORDERED: Acetaminophen TAB* 325 MG PO ONE (16:03)
[2019-02-24] MEDS ORDERED: NS 0.9% 1000 ML** 1,000 ML IV ONE (16:06)
--- NOTE | 2019-02-24 16:42 | ED ---
GI/ HPI - HPI Summary HPI Summary: Patient is a 78 on male who presents emergency department for fever and dysuria times one day. Patient notes that he is having urinary urgency and incontinence. Patient also notes ongoing productive cough. Patient also believes there was blood in his stool today. Patient with recent admission for had hyperkalemia and acute kidney injury. Patient denies chest pain, shortness breath, abdominal pain, vomiting or diarrhea. Symptoms are moderate in severity. No current modifying factors. - History of Current Complaint Chief Complaint: EDUrogenitalProblems Time Seen by Provider: 02/24/19 15:47 Stated Complaint: INCONTINANCE/BLOOD IN STOOL PER PT Hx Obtained From: Patient Pain Intensity: 0 - Additional Pertinent History Primary Care Physician: [id number] - Allergy/Home Medications Allergies/Adverse Reactions: Allergies Allergy/AdvReac Type Severity Reaction Status Date / Time cephalexin [From Keflex] AdvReac N/V Verified 02/24/19 17:00 Home Medications: Home Medications Magnesium Oxide [Magnesium] 250 mg PO DAILY 02/24/19 [History Confirmed 02/24/19 ] PMH/Surg Hx/FS Hx/Imm Hx Previously Healthy: Yes Endocrine/Hematology History: Reports: Hx Anticoagulant Therapy, Hx Blood Transfusions, Hx Diabetes - type 2 dm Denies: Hx Thyroid Disease, Hx Unexplained Bleeding Cardiovascular History: Reports: Hx Angina, Hx Congestive Heart Failure, Hx Coronary Artery Disease, Hx Hypercholesterolemia, Hx Hypertension, Hx Myocardial Infarction, Hx Valvular Heart Disease - aortic valve replacement, Other Cardiovascular Problems/Disorders - AORTIC STENOSIS Denies: Hx Auto Implanted Cardiovert Defib, Hx Congenital Heart Disease, Hx Pacemaker/ICD, Hx Syncope Respiratory History: Reports: Hx Asthma, Hx Chronic Obstructive Pulmonary Disease (COPD), Hx Sleep Apnea - pt states he doesn't wear CPAP anymore Comment Only: Other Respiratory Problems/Disorders - SOB GI History: Denies: Hx Ulcer Comment Only: Other GI Disorders - HERNIA REPAIR History: Reports: Hx Benign Prostatic Hyperplasia, Hx Chronic Renal Failure - CKD stage 3, Hx Renal Disease - RENAL FUNCTION DUE TO DIABETES, Other Problems/Disorders - chronic renal insufficiency Denies: Hx Dialysis Musculoskeletal History: Reports: Hx Back Problems, Hx Gout, Other Musculoskeletal History - leg and foot cramps Denies: Hx Arthritis, Hx Osteoporosis Sensory History: Denies: Hx Contacts or Glasses, Hx Eye Injury, Hx Glaucoma, Hx Deafness, Hx Hearing Aid, Hx Hearing Problem Opthamlomology History: Denies: Hx Contacts or Glasses, Hx Eye Injury, Hx Glaucoma Neurological History: Reports: Hx Transient Ischemic Attacks (TIA) Denies: Hx Dementia, Hx Developmental Delay, Hx Migraine, Hx Seizures, Hx Spinal Cord Injury Psychiatric History: Reports: Hx Anxiety Denies: Hx Attention Deficit Hyperactivity Disorder, Hx Eating Disorder, Hx Depression, Hx Panic Disorder, Hx Post Traumatic Stress Disorder, Hx Inpatient Treatment, Hx Community Mental Health Tx, Hx Schizophrenia, Hx Bipolar Disorder , Hx Suicide Attempt, Hx of Violent Episodes Against Others, Hx Substance Abuse , Other Psychiatric Issues/Disorders - Surgical History Surgery Procedure, Year, and Place: ABDOMINAL HERNIA REPAIR, skull fracture in the . Aortic valve replacement September 2014 Hx Anesthesia Reactions: No - Immunization History Date of Tetanus Vaccine: unknown Date of Influenza Vaccine: None Infectious Disease History: No Infectious Disease History: Denies: Hx Clostridium Difficile, Hx Hepatitis, Hx Human Immunodeficiency Virus (HIV), Hx of Known/Suspected MRSA, Hx Shingles, Hx Tuberculosis, Hx Known/ Suspected VRE, Hx Known/Suspected VRSA, History Other Infectious Disease, Traveled Outside the [place] in Last 30 Days - Family History Known Family History: Positive: Cardiac Disease, Hypertension, Non-Contributory Negative: Diabetes - Social History Occupation: Employed Part-time Lives: With Family Alcohol Use: None Alcohol Amount: SOCIAL Hx Substance Use: No Substance Use Type: Reports: None Substance Use Comment - Amount & Last Used: pt confused; current substance use is unknown, but no known history Hx Tobacco Use: Yes Smoking Status (MU): Light Every Day Tobacco Smoker Type: Cigars Amount Used/How Often: 1-2 CIGARS/DAY Length of Time of Smoking/Using Tobacco: 57 years Have You Smoked in the Last Year: Yes Review of Systems Positive: Fever, Chills ENT: Negative Cardiovascular: Negative Respiratory: Negative Gastrointestinal: Negative Positive: dysuria Positive: Myalgia Skin: Negative Neurological: Negative All Other Systems Reviewed And Are Negative: Yes Physical Exam Triage Information Reviewed: Yes Vital Signs On Initial Exam: Initial Vitals Temp Pulse Resp BP Pulse Ox 100.2 F 79 18 123/63 97 02/24/19 13:46 02/24/19 13:46 02/24/19 13:46 02/24/19 13:46 02/24/19 13:46 Vital Signs Reviewed: Yes Appearance: Positive: Pain Distress - Pt. lying in bed shaking. Appears to feel unwell but nontoxic . Skin: Positive: Warm, Dry Head/Face: Positive: Normal Head/Face Inspection Eyes: Positive: Normal, EOMI Neck: Positive: Supple Respiratory/Lung Sounds: Positive: Clear to Auscultation, Breath Sounds Present Cardiovascular: Positive: Normal, RRR, Murmur Abdomen Description: Positive: Nontender, Soft, CVA Tenderness (R) Musculoskeletal: Positive: Normal, Strength/ROM Intact Neurological: Positive: Normal, CN Intact II-III Psychiatric: Positive: Affect/Mood Appropriate Diagnostics - Vital Signs Vital Signs Temp Pulse Resp BP Pulse Ox 02/24/19 16:08 86 146/78 97 02/24/19 13:46 100.2 F 79 18 123/63 97 - Laboratory Lab Results: Lab Results 02/24/19 02/24/19 02/24/19 Range/Units 14:02 14:02 14:02 WBC 16.3 H (3.5-10.8) 10^3/uL RBC 3.88 L (4.18-5.48) 10^6 /uL Hgb 11.6 L (14.0-18.0) g/dL Hct 35 L (42-52) % MCV 89 (80-94) fL MCH 30 (27-31) pg MCHC 34 (31-36) g/dL RDW 16 H (10-15) % Plt Count 251 (150-450) 10^3/uL MPV 7.7 (7.4-10.4) fL Neut % (Auto) 88.2 % Lymph % (Auto) 5.4 % [place] % (Auto) 5.4 % Eos % (Auto) 0.4 % Baso % (Auto) 0.6 % Absolute Neuts (auto) 14.4 H (1.5-7.7) 10^3/ul Absolute Lymphs (auto) 0.9 L (1.0-4.8) 10^3/ul Absolute Monos (auto) 0.9 H (0-0.8) 10^3/ul Absolute Eos (auto) 0.1 (0-0.6) 10^3/ul Absolute Basos (auto) 0.1 (0-0.2) 10^3/ul Absolute Nucleated RBC 0.0 10^3/ul Nucleated RBC % 0.0 Sodium 134 L (135-145) mmol/L Potassium 5.5 H (3.5-5.0) mmol/L Chloride 110 (101-111) mmol/L Carbon Dioxide 18 L (22-32) mmol/L Anion Gap 6 (2-11) mmol/L BUN 54 H (6-24) mg/dL Creatinine 3.16 H (0.67-1.17) mg/dL Est GFR ( Amer) 23.3 (>60) Est GFR (Non-Af Amer) 19.3 (>60) BUN/Creatinine Ratio 17.1 (8-20) Glucose 155 H (70-100) mg/dL Lactic Acid 1.3 (0.5-2.0) mmol/L Calcium 8.7 (8.6-10.3) mg/dL Total Bilirubin 0.70 (0.2-1.0) mg/dL AST 16 (13-39) U/L ALT 12 (7-52) U/L Alkaline Phosphatase 63 (34-104) U/L C-Reactive Protein 55.62 H (<8.01) mg/L Total Protein 6.7 (6.4-8.9) g/dL Albumin 4.1 (3.2-5.2) g/dL Globulin 2.6 (2-4) g/dL Albumin/Globulin Ratio 1.6 (1-3) Result Diagrams: 02/24/19 14:02 02/24/19 14:02 Lab Statement: Any lab studies that have been ordered have been reviewed, and results considered in the medical decision making process. GIGU Course/Dx - Course Course Of Treatment: Pt. with low grade fever and urinary sxs. Pt. started on IV fluids. Pt. had labs in [facility] that show a leukocytosis of 16k. Chronic renal disease and k of 5.5. No ECG changes. Pt. c/o muscle spasms and request his home muscle relaxer of tizanidine which was ordered. Pt. does have right CVA tenderness, will obtain CT to r/o urolithiasis. U/A nitrate positive. IV rocephin given. ECG done at 1635 shows a sinsu rhythm of 86bpm, normal axis, no ST elevation or depression. Pt. will be signed out to Jarred David, PAC pending CT results. Pt. will need admitted for UTI and SIRS. Case discussed with Dr. Geiger and she would like to wait for CT read before admission. - Diagnoses Differential Diagnoses - Male: Renal Calculi, Urinary Tract Infection Provider Diagnoses: UTI (urinary tract infection), SIRS (systemic inflammatory response syndrome) Discharge ED - Sign-Out/Discharge Documenting (check all that apply): Sign-Out Patient Signing out patient TO: Jarred Hernandez Patient Received Moderate/Deep Sedation with Procedure: No - Discharge Plan Condition: Stable Disposition: ADMITTED TO [facility] Referrals: Romina Bolden MD [Primary Care Provider] - - Billing Disposition and Condition Condition: STABLE Disposition: Admitted to [facility]
[2019-02-24] MEDS ORDERED: tiZANidine TAB* 2 MG PO ONE (17:07)
[2019-02-24] MEDS ORDERED: cefTRIAXone(*) 1 GM in NS 0.9% 50 ML* 50 ML IVPB ONE (17:09)
[2019-02-24 17:33] LABS: Urine Appearance Cloudy; Urine Bacteria Absent (Absent); Urine Bilirubin Negative (Negative); Urine Blood 3+ (Negative); Urine Color Yellow; Urine Glucose Negative (Negative); Urine Ketones Negative (Negative); Urine Nitrite Positive (Negative); Urine Protein 2+(100 mg/dL) (Negative); Urine Red Blood Cell 3+(>10/hpf) (Absent); Urine Specific Gravity 1.011 (1.010-1.030); Urine Squamous Epithelial Cell Present (Absent); Urine Urobilinogen Negative (Negative); Urine White Blood Cell 3+(>20/hpf) (Absent)
--- NOTE | 2019-02-24 18:16 | ADMNOTE ---
Subjective Date of Service: 02/24/19 Interval History: ADMISSION HISTORY AND PHYSICAL EXAM: Allergies Allergy/AdvReac Type Severity Reaction Status Date / Time cephalexin [From Keflex] AdvReac N/V Verified 02/24/19 17:00 Home Medications Medication Instructions Recorded Confirmed Type Atorvastatin* [Lipitor 80 MG*] 80 mg PO DAILY 11/13/17 02/24/19 History Darifenacin Hydrobromide 15 mg PO DAILY 11/13/17 02/24/19 History [Darifenacin ER] tiZANidine TAB* [Zanaflex TAB*] 2 mg PO BID PRN 11/17/17 02/24/19 History Mirabegron (NF) [Myrbetriq (NF)] 50 mg PO DAILY 03/03/18 02/24/19 History amLODIPine TAB* [Norvasc 5 mg TAB*] 10 mg PO DAILY 09/15/18 02/24/19 History Finasteride TAB* [Proscar TAB*] 5 mg PO DAILY 02/02/19 02/24/19 History Patiromer POWDER* [Veltassa 8.4 gm PO DAILY #5 aneta 02/06/19 02/24/19 Rx POWDER*] Polyethylene Glycol 3350* 17 gm PO DAILY PRN #30 packet 02/06/19 02/24/19 Rx [Miralax*] hydroCHLOROthiazide 12.5 mg PO DAILY #30 capsule 02/06/19 02/24/19 Rx [Hydrochlorothiazide] Magnesium Oxide [Magnesium] 250 mg PO DAILY 02/24/19 02/24/19 History HPI: The patient c/o dysuria and frequency for several days. Poor appetite. Took all his meds. Denies sweats, chills, did not take his temp at home. Family History: Findings - Father of alcoholism age 39, mother of emphysema age 59. Social History: Findings - Smokes cigars. Former alcoholic. SDM is his girlfriend Vaishali Watson. 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 Past Medical History: Findings - Porcine AVR with CABG 2014, BL cataract surgery. Review of Systems - Measurements Intake and Output: Intake and Output Last 24 Hours 02/22/19 02/23/19 02/24/19 02/25/19 06:59 06:59 06:59 06:59 Weight 162 lb - Review of Systems Constitutional Symptoms: Negative: Weight Gain, Weight Loss, Weakness, Fatigue, Fever, Night Sweats, Unexplained Falls, Other Dermatology: Negative: Normal, Rash, Skin Lesions, Cancer, Skin Lumps, Other HEENT: Negative: Normal, Change in Hearing, Vertigo, Dental Problems, Tinnitus, Sinus Problem, Other Eyes: Negative: Normal, Change in Vision, Double Vision, Eye Pain, Glaucoma, Cataract, Contacts or Glasses, Other Thyroid: Negative: Normal, Goiter, Thyroid Nodule, Cold Intolerance, Heat Intolerance , Sweatiness, Tremor, Frequent Defecation, Constipation, Palpitations, Primary Hypothyroidism, Primary Hyperthyroidism, Weight Loss, Weight Gain, Change in Skin/Hair, Change in Menstruation, Radiation Exposure, Other Pulmonary: Positive: Cough - A little more cough than usual, not productive. Cardiology: Positive: Normal Gastroenterology: Positive: Anorexia Genital - Urinary: Positive: Dysuria, Other - frequency Musculoskeletal: Positive: Joint Pain Endocrinology: Positive: Diabetes Mellitus Hematologic/Lymphatic: Positive: Anemia Neurology: Positive: Normal Psychiatry: Positive: Normal Allergic/Immunologic: Negative: Hx Anaphylaxis, Hx Angioedema, Hx Environmental, Hx Seasonal, Asthma, Hx HIV, Immunocompromise, Swollen Glands LymphNodes, Other Objective Vital Signs - 8 hr 02/24/19 02/24/19 02/24/19 13:46 16:08 16:38 Temperature 100.2 F Pulse Rate 79 86 86 Respiratory 18 Rate Blood Pressure 123/63 146/78 134/74 (mmHg) O2 Sat by Pulse 97 97 97 Oximetry Oxygen Devices in Use Now: None Appearance: Alert, partly up in bed. In fair spirits, looks weak/fatigued but otherwise comfortable. Eyes: No Scleral Icterus Ears/Nose/Mouth/Throat: Clear Oropharnyx, Mucous Membranes Moist Neck: NL Appearance and Movements; NL JVP, No Thyroid Enlargement, Masses Respiratory: Symmetrical Chest Expansion and Respiratory Effort, Clear to Auscultation, Clear to Percussion Cardiovascular: RRR - 1-2/6 systolic murmur across precordium, No Edema, - Abdominal: NL Sounds; No Tenderness; No Distention, No Hepatosplenomegaly, - Extremities: No Edema, No Clubbing, Cyanosis, - Skin: No Rash or Ulcers, No Nodules or Sclerosis, - Neurological: Alert and Oriented x 3, NL Sensation Result Diagrams: 02/24/19 14:02 02/24/19 14:02 Additional Lab and Data: Lab Results 02/24/19 02/24/19 02/24/19 Range/Units 14:02 14:02 14:02 WBC 16.3 H (3.5-10.8) 10^3/uL RBC 3.88 L (4.18-5.48) 10^6 /uL Hgb 11.6 L (14.0-18.0) g/dL Hct 35 L (42-52) % MCV 89 (80-94) fL MCH 30 (27-31) pg MCHC 34 (31-36) g/dL RDW 16 H (10-15) % Plt Count 251 (150-450) 10^3/uL MPV 7.7 (7.4-10.4) fL Neut % (Auto) 88.2 % Lymph % (Auto) 5.4 % [place] % (Auto) 5.4 % Eos % (Auto) 0.4 % Baso % (Auto) 0.6 % Absolute Neuts (auto) 14.4 H (1.5-7.7) 10^3/ul Absolute Lymphs (auto) 0.9 L (1.0-4.8) 10^3/ul Absolute Monos (auto) 0.9 H (0-0.8) 10^3/ul Absolute Eos (auto) 0.1 (0-0.6) 10^3/ul Absolute Basos (auto) 0.1 (0-0.2) 10^3/ul Absolute Nucleated RBC 0.0 10^3/ul Nucleated RBC % 0.0 Sodium 134 L (135-145) mmol/L Potassium 5.5 H (3.5-5.0) mmol/L Chloride 110 (101-111) mmol/L Carbon Dioxide 18 L (22-32) mmol/L Anion Gap 6 (2-11) mmol/L BUN 54 H (6-24) mg/dL Creatinine 3.16 H (0.67-1.17) mg/dL Est GFR ( Amer) 23.3 (>60) Est GFR (Non-Af Amer) 19.3 (>60) BUN/Creatinine Ratio 17.1 (8-20) Glucose 155 H (70-100) mg/dL Lactic Acid 1.3 (0.5-2.0) mmol/L Calcium 8.7 (8.6-10.3) mg/dL Total Bilirubin 0.70 (0.2-1.0) mg/dL AST 16 (13-39) U/L ALT 12 (7-52) U/L Alkaline Phosphatase 63 (34-104) U/L C-Reactive Protein 55.62 H (<8.01) mg/L Total Protein 6.7 (6.4-8.9) g/dL Albumin 4.1 (3.2-5.2) g/dL Globulin 2.6 (2-4) g/dL Albumin/Globulin Ratio 1.6 (1-3) Assess/Plan/Problems-Billing Assessment: - Patient Problems (1) UTI (urinary tract infection) Current Visit: Yes Status: Acute Comment: Continue ceftriaxone pending C&S results. CT abd/pelvis report pending. If there is any uncertainty about how well he empties his bladder, would do bladder scan. I note patient was on 2 meds that could cause urinary retention. (2) Acute on chronic renal failure Current Visit: No Status: Acute Code(s): N17.9 - ACUTE KIDNEY FAILURE, UNSPECIFIED; N18.9 - CHRONIC KIDNEY DISEASE, UNSPECIFIED SNOMED Code(s): 858205238 Comment: Patiromer daily, start in ED. IV fluids at 150 ml/hr ordered to start in ED. BMP 02/25. Nutrition consult for renal diet. (3) Tobacco abuse Current Visit: No Status: Acute Code(s): Z72.0 - TOBACCO USE SNOMED Code(s ): 338845317 Comment: Pt advised to quit smoking and avoid second hand smoke. 14 mg nicotine patch ordered. Pt states he only smoke cigars. (4) CAD (coronary artery disease) Current Visit: No Status: Acute Code(s): I25.10 - ATHSCL HEART DISEASE OF [place] CORONARY ARTERY W/O ANG PCTRS SNOMED Code(s): 18859301 Comment: S/P AVR and CABG. Continue ASA, atorvastatin. (5) H/O aortic valve replacement Current Visit: No Status: Chronic Priority: Medium Code(s): Z95.2 - PRESENCE OF PROSTHETIC HEART VALVE SNOMED Code(s): 0306465031706 Comment: Porcine valve. Echo OK 09/16/18.
[2019-02-24 18:58] LABS: Magnesium 1.6 mg/dL (1.9-2.7)
[2019-02-24] MEDS ORDERED: Patiromer POWDER* 8.4 GM PAK PO ONE (19:00)
[2019-02-24] MEDS: NS 0.9% 1000 ML** 1,000 ML IV SCH (20:28)
[2019-02-24] MEDS: Nicotine PATCH 14 MG/24 HR* PATCH TRANSDERM SCH (20:30)
[2019-02-24] MEDS: Nicotine Patch Removal NOTE PATCH OFF SCH (23:15)
[2019-02-25] MEDS: NS 0.9% 1000 ML** 1,000 ML IV SCH ×2 (02:41→12:34)
[2019-02-25] MEDS ORDERED: Acetaminophen TAB* 325 MG PO PRN (05:07)
[2019-02-25 06:50] LABS: Calcium 7.8 mg/dL (8.6-10.3)
[2019-02-25 06:53] LABS: Potassium 5.3 mmol/L (3.5-5.0)
[2019-02-25 06:56] LABS: EGFR African American 25.9 (>60); EGFR Non-African American 21.4 (>60)
[2019-02-25] MEDS: Finasteride TAB* 5 MG PO SCH (08:18)
[2019-02-25] MEDS: Atorvastatin* 80 MG TAB PO SCH (08:18)
[2019-02-25] MEDS: Nicotine PATCH 14 MG/24 HR* PATCH TRANSDERM SCH (08:18)
[2019-02-25] MEDS: Aspirin 81 mg CHEW TAB* 81 MG TAB.CHEW PO SCH (08:18)
[2019-02-25] MEDS: amLODIPine TAB* 5 MG PO SCH (08:18)
[2019-02-25] MEDS: Patiromer POWDER* 8.4 GM PAK PO SCH (08:20)
--- NOTE | 2019-02-25 14:48 | PN ---
Subjective Date of Service: 02/25/19 Interval History: Patient continues to feel poorly similar to when admitted. Patient continues to have dysuria. Patient denies F/C, N/V, abdominal pain, diarrhea, CP, SOB. Family History: Findings - Father of alcoholism age 39, mother of emphysema age 59. Social History: Findings - Smokes cigars. Former alcoholic. SDM is his girlfriend Vaishali Watson. 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 Past Medical History: Findings - Porcine AVR with CABG 2014, BL cataract surgery. Objective Active Medications: Acetaminophen (Tylenol Tab*) 650 mg PO Q6H PRN PRN Reason: TEMP > 100.4 Amlodipine Besylate (Norvasc Tab*) 10 mg PO DAILY [facility] Last Admin: 02/25/19 08:18 Dose: 10 mg Aspirin (Aspirin 81 Mg Chew Tab*) 81 mg PO DAILY [facility] Last Admin: 02/25/19 08:18 Dose: 81 mg Atorvastatin Calcium (Lipitor*) 80 mg PO DAILY [facility] Last Admin: 02/25/19 08:18 Dose: 80 mg Finasteride (Proscar Tab*) 5 mg PO DAILY [facility] Last Admin: 02/25/19 08:18 Dose: 5 mg Ceftriaxone Sodium 1 gm/ (Sodium Chloride) 50 mls @ 100 mls/hr IVPB Q24H [facility] Sodium Chloride (Ns 0.9% 1000 Ml) 1,000 mls @ 75 mls/hr IV PER RATE [facility] Last Admin: 02/25/19 12:34 Dose: 75 mls/hr Nicotine (Nicotine Patch 14 Mg/24 Hr*) 1 patch TRANSDERM DAILY [facility] Last Admin: 02/25/19 08:18 Dose: 1 patch Patiromer (Veltassa Powder*) 8.4 gm PO DAILY [facility] Last Admin: 02/25/19 08:20 Dose: 8.4 gm Pharmacy Profile Note (Nicotine Patch Removal Note*) 1 note PATCH OFF 2100 [facility] Last Admin: 02/24/19 23:15 Dose: Not Given Polyethylene Glycol/Electrolytes (Miralax*) 17 gm PO DAILY PRN PRN Reason: CONSTIPATION Vital Signs - 8 hr 02/25/19 02/25/19 07:15 11:15 Temperature 99 F 96.9 F Pulse Rate 82 75 Respiratory 33 31 Rate Blood Pressure 131/52 108/39 (mmHg) O2 Sat by Pulse 98 100 Oximetry Oxygen Devices in Use Now: None Appearance: Patient is a 78yo male who appears stated age and is sitting in the bed in NAD. Eyes: No Scleral Icterus, PERRLA Ears/Nose/Mouth/Throat: NL Teeth, Lips, Gums, Clear Oropharnyx, Mucous Membranes Moist Neck: NL Appearance and Movements; NL JVP, Trachea Midline Respiratory: Symmetrical Chest Expansion and Respiratory Effort, Clear to Auscultation Cardiovascular: NL Sounds; No Murmurs; No JVD, RRR, No Edema Abdominal: NL Sounds; No Tenderness; No Distention, No Hepatosplenomegaly Lymphatic: No Cervical Adenopathy Extremities: No Edema, No Clubbing, Cyanosis Skin: No Rash or Ulcers, No Nodules or Sclerosis Neurological: Alert and Oriented x 3, NL Sensation, NL Muscle Strength and Tone , - - CN II-XII intact. Result Diagrams: 02/24/19 14:02 02/25/19 06:23 Additional Lab and Data: Lab Results Assess/Plan/Problems-Billing Assessment: Patient is a 78yo male with a PMH for CKD, CAD, DM, COPD, here with UTI and is not improving currently on treatment pending urine culture. - Patient Problems (1) UTI (urinary tract infection) Current Visit: Yes Status: Acute Comment: - Continue ceftriaxone pending C&S results. CT abd/pelvis consistent with pyelonephritis - No symptoms of retention, patient adamantly refuses any bladder catheterization. (2) Acute on chronic renal failure Current Visit: No Status: Acute Code(s): N17.9 - ACUTE KIDNEY FAILURE, UNSPECIFIED; N18.9 - CHRONIC KIDNEY DISEASE, UNSPECIFIED SNOMED Code(s): 120381731 Comment: - Improvement, decrease fluids - Monitor. (3) Anemia Current Visit: No Status: Acute Priority: Medium Onset Date: 07/18/14 Code(s): D64.9 - ANEMIA, UNSPECIFIED SNOMED Code(s): 375127427 Comment: - AOCD, possibly with renal insufficiency component, will not repeat Iron studies at this time. - Monitor outpatient with nephrology - At baseline (4) CAD (coronary artery disease) Current Visit: No Status: Acute Code(s): I25.10 - ATHSCL HEART DISEASE OF [place] CORONARY ARTERY W/O ANG PCTRS SNOMED Code(s): 81011901 Comment: - S/P AVR and CABG. Continue ASA, atorvastatin. - No signs of ACS (5) COPD (chronic obstructive pulmonary disease) Current Visit: No Status: Acute Code(s): J44.9 - CHRONIC OBSTRUCTIVE PULMONARY DISEASE, UNSPECIFIED SNOMED Code(s): 11029577 Comment: - Not in exacerbation (6) Diastolic CHF Current Visit: No Status: Acute Code(s): I50.30 - UNSPECIFIED DIASTOLIC ( CONGESTIVE) HEART FAILURE SNOMED Code(s): 637194681 Comment: not in exacerbation, cont daily weights Lasix restarted on 09/10/15 Cont statin and metoprolol (7) HTN (hypertension) Current Visit: No Status: Acute Code(s): I10 - ESSENTIAL (PRIMARY) HYPERTENSION SNOMED Code(s): 12813641 Comment: Lisinopril on hold Continue Amlodipine 10 mg daily (8) Hyperkalemia Current Visit: No Status: Acute Code(s): E87.5 - HYPERKALEMIA SNOMED Code( s): 72604063 Comment: on presentation potassium was 7.3: calcium gluconate, insulin, dextrose, patiromer given. May be due to kidney injury or due to increased intake. today potassium 5.7 Patiromer frequency increased. Recheck BMP at 1600 Miralax given. (9) Diabetes Current Visit: No Status: Chronic Priority: Low Code(s): E11.9 - TYPE 2 DIABETES MELLITUS WITHOUT COMPLICATIONS SNOMED Code(s): 82641026 Comment: - Not on meds, Recent A1c of 5.6 (10) DVT prophylaxis Current Visit: No Status: Acute Priority: Medium Code(s): XAM0905 - SNOMED Code(s): 880026687 Comment: - Heparin SubQ Status and Disposition: Inpatient pending urine culture.
[2019-02-25 15:12] LABS: Urine Appearance Cloudy; Urine Bacteria Absent (Absent); Urine Bilirubin Negative (Negative); Urine Blood 2+ (Negative); Urine Color Yellow; Urine Glucose Negative (Negative); Urine Ketones Negative (Negative); Urine Nitrite Negative (Negative); Urine Protein 1+(30 mg/dL) (Negative); Urine Red Blood Cell Trace(0-2/hpf) (Absent); Urine Squamous Epithelial Cell Present (Absent); Urine Urobilinogen Negative (Negative); Urine White Blood Cell 3+(>20/hpf) (Absent)
[2019-02-25] MEDS: cefTRIAXone(*) 1 GM in NS 0.9% 50 ML* 50 ML IVPB SCH (17:18)
[2019-02-25] MEDS: Nicotine Patch Removal NOTE PATCH OFF SCH (20:26)
[2019-02-26] MEDS: NS 0.9% 1000 ML** 1,000 ML IV SCH (02:21)
[2019-02-26] MEDS: Polyethylene Glycol 3350* 17 GM PACKET PO PRN (06:51)
[2019-02-26 08:13] LABS: ABS Eosinophils 0.1 10^3/ul (0-0.6); ABS Lymphocytes 0.4 10^3/ul (1.0-4.8); ABS Monocytes 0.5 10^3/ul (0-0.8); ABS Neutrophils 8.7 10^3/ul (1.5-7.7); Eosinophil % 0.6 %; Hematocrit 29 % (42-52); Hemoglobin 9.8 g/dL (14.0-18.0); Lymphocyte % 3.7 %; Mean Corpuscular HGB Conc 34 g/dL (31-36); Mean Corpuscular Hemoglobin 30 pg (27-31); Mean Corpuscular Volume 89 fL (80-94); Mean Platelet Volume 8.9 fL (7.4-10.4); Nucleated Red Blood Cells % 0.1; Platelet Count 160 10^3/uL (150-450); Red Blood Count 3.24 10^6 /uL (4.18-5.48); Red Cell Distribution Width 16 % (10-15); White Blood Count 9.7 10^3/uL (3.5-10.8)
[2019-02-26 08:30] LABS: BUN/Creatinine Ratio 16.2 (8-20); Calcium 7.8 mg/dL (8.6-10.3); EGFR African American 27.8 (>60); Magnesium 1.4 mg/dL (1.9-2.7); Potassium 4.3 mmol/L (3.5-5.0)
[2019-02-26] MEDS ORDERED: Magnesium Sulfate IV* 3 GM in NS 0.9% 100 ML* 100 ML IVPB ONE (08:40)
[2019-02-26] MEDS: Atorvastatin* 80 MG TAB PO SCH (08:57)
[2019-02-26] MEDS: amLODIPine TAB* 5 MG PO SCH (08:57)
[2019-02-26] MEDS: Finasteride TAB* 5 MG PO SCH (08:57)
[2019-02-26] MEDS: Senna TAB 8.6 mg* TAB PO PRN (08:57)
[2019-02-26] MEDS: Nicotine PATCH 14 MG/24 HR* PATCH TRANSDERM SCH (08:57)
[2019-02-26] MEDS: Aspirin 81 mg CHEW TAB* 81 MG TAB.CHEW PO SCH (08:57)
[2019-02-26] MEDS: Magnesium Hydroxide LIQ* 30 ML UDC PO PRN ×2 (08:57→17:51)
[2019-02-26] MEDS: Patiromer POWDER* 8.4 GM PAK PO SCH (08:59)
--- NOTE | 2019-02-26 15:02 | PN ---
Subjective Date of Service: 02/26/19 Interval History: Patient is feeling poorly today. Patient has little energy. Patient complains of increased LUTS. Patient feels often as if his bladder doesn't empty. Patient denies F/C, N/V, abdominal pain, diarrhea, CP, SOB. Patient's dysuria is improving. Family History: Findings - Father of alcoholism age 39, mother of emphysema age 59. Social History: Findings - Smokes cigars. Former alcoholic. SDM is his girlfriend Vaishali Watson. 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 Past Medical History: Findings - Porcine AVR with CABG 2014, BL cataract surgery. Objective Active Medications: Acetaminophen (Tylenol Tab*) 650 mg PO Q6H PRN PRN Reason: TEMP > 100.4 Last Admin: 02/25/19 20:24 Dose: 650 mg Amlodipine Besylate (Norvasc Tab*) 10 mg PO DAILY [facility] Last Admin: 02/26/19 08:57 Dose: 10 mg Aspirin (Aspirin 81 Mg Chew Tab*) 81 mg PO DAILY [facility] Last Admin: 02/26/19 08:57 Dose: 81 mg Atorvastatin Calcium (Lipitor*) 80 mg PO DAILY [facility] Last Admin: 02/26/19 08:57 Dose: 80 mg Finasteride (Proscar Tab*) 5 mg PO DAILY [facility] Last Admin: 02/26/19 08:57 Dose: 5 mg Ceftriaxone Sodium 1 gm/ (Sodium Chloride) 50 mls @ 100 mls/hr IVPB Q24H [facility] Last Admin: 02/25/19 17:18 Dose: 100 mls/hr Sodium Chloride (Ns 0.9% 1000 Ml) 1,000 mls @ 75 mls/hr IV PER RATE [facility] Last Admin: 02/26/19 02:21 Dose: 75 mls/hr Magnesium Hydroxide (Milk Of Magnesia Liq*) 30 ml PO Q4H PRN PRN Reason: CONSTIPATION Last Admin: 02/26/19 08:57 Dose: 30 ml Nicotine (Nicotine Patch 14 Mg/24 Hr*) 1 patch TRANSDERM DAILY [facility] Last Admin: 02/26/19 08:57 Dose: 1 patch Pharmacy Profile Note (Nicotine Patch Removal Note*) 1 note PATCH OFF 2100 [facility] Last Admin: 02/25/19 20:26 Dose: 1 note Polyethylene Glycol/Electrolytes (Miralax*) 17 gm PO DAILY PRN PRN Reason: CONSTIPATION Last Admin: 02/26/19 06:51 Dose: 17 gm Senna (Senokot 8.6 Mg Tab*) 1 tab PO DAILY PRN PRN Reason: CONSTIPATION Last Admin: 02/26/19 08:57 Dose: 1 tab Vital Signs - 8 hr 02/26/19 02/26/19 02/26/19 07:15 08:00 11:27 Temperature 98.7 F 98.3 F Pulse Rate 82 75 Respiratory 20 20 18 Rate Blood Pressure 141/49 137/52 (mmHg) O2 Sat by Pulse 98 96 Oximetry Oxygen Devices in Use Now: None Appearance: Patient is a 78yo male who appears stated age and is sitting in the bed in NAD. Eyes: No Scleral Icterus, PERRLA Ears/Nose/Mouth/Throat: NL Teeth, Lips, Gums, Clear Oropharnyx, Mucous Membranes Moist Neck: NL Appearance and Movements; NL JVP, Trachea Midline Respiratory: Symmetrical Chest Expansion and Respiratory Effort, Clear to Auscultation Cardiovascular: NL Sounds; No Murmurs; No JVD, RRR, No Edema Abdominal: NL Sounds; No Tenderness; No Distention, No Hepatosplenomegaly, - - No suprapubic or CVA tenderness. Lymphatic: No Cervical Adenopathy Extremities: No Edema, No Clubbing, Cyanosis Skin: No Rash or Ulcers, No Nodules or Sclerosis Neurological: Alert and Oriented x 3, NL Sensation, NL Muscle Strength and Tone , - - CN II-XII intact. Result Diagrams: 02/26/19 07:10 02/26/19 07:10 Additional Lab and Data: Lab Results Microbiology and Other Data: Microbiology 02/24/19 23:47 Aerobic Blood Culture - Preliminary Blood Venous No Growth Day 1 Anaerobic Blood Culture - Preliminary No Growth Day 1 02/24/19 23:47 Aerobic Blood Culture - Preliminary Blood Venous No Growth Day 1 Anaerobic Blood Culture - Preliminary No Growth Day 1 02/24/19 17:15 Urine Culture - Preliminary Urine Enterobacter Cloacae Assess/Plan/Problems-Billing Assessment: Patient is a 78yo male with a PMH for CKD, CAD, DM, COPD, here with UTI and is not improving currently on treatment pending urine culture. - Patient Problems (1) UTI (urinary tract infection) Current Visit: Yes Status: Acute Comment: - Continue ceftriaxone pending C&S results. CT abd/pelvis consistent with pyelonephritis - No symptoms of retention, patient adamantly refuses any bladder catheterization. - PVR consistently low with frequent urination, follow up urology outpatient. (2) Acute on chronic renal failure Current Visit: No Status: Acute Code(s): N17.9 - ACUTE KIDNEY FAILURE, UNSPECIFIED; N18.9 - CHRONIC KIDNEY DISEASE, UNSPECIFIED SNOMED Code(s): 153798927 Comment: - Improvement, stop fluids - Monitor. - Stop patiromer and monitor potassium. (3) Anemia Current Visit: No Status: Acute Priority: Medium Onset Date: 07/18/14 Code(s): D64.9 - ANEMIA, UNSPECIFIED SNOMED Code(s): 315529724 Comment: - AOCD, possibly with renal insufficiency component, will not repeat Iron studies at this time. - Monitor outpatient with nephrology - At baseline (4) CAD (coronary artery disease) Current Visit: No Status: Acute Code(s): I25.10 - ATHSCL HEART DISEASE OF [place] CORONARY ARTERY W/O ANG PCTRS SNOMED Code(s): 71007143 Comment: - S/P AVR and CABG. Continue ASA, atorvastatin. - No signs of ACS (5) COPD (chronic obstructive pulmonary disease) Current Visit: No Status: Acute Code(s): J44.9 - CHRONIC OBSTRUCTIVE PULMONARY DISEASE, UNSPECIFIED SNOMED Code(s): 45387602 Comment: - Not in exacerbation (6) Diastolic CHF Current Visit: No Status: Acute Code(s): I50.30 - UNSPECIFIED DIASTOLIC ( CONGESTIVE) HEART FAILURE SNOMED Code(s): 960134442 Comment: - Not in exacerbation, cont daily weights - Cont statin and metoprolol (7) HTN (hypertension) Current Visit: No Status: Acute Code(s): I10 - ESSENTIAL (PRIMARY) HYPERTENSION SNOMED Code(s): 48409039 Comment: - Lisinopril on hold - Continue Amlodipine 10 mg daily (8) Hyperkalemia Current Visit: No Status: Acute Code(s): E87.5 - HYPERKALEMIA SNOMED Code( s): 67176507 Comment: - Potassium 5.5 on admission, responded to fluids and patiromer - Stop patiromer and trend. - Repeat BMP in AM. - Renal diet (9) Diabetes Current Visit: No Status: Chronic Priority: Low Code(s): E11.9 - TYPE 2 DIABETES MELLITUS WITHOUT COMPLICATIONS SNOMED Code(s): 24231804 Comment: - Not on meds, Recent A1c of 5.6 (10) DVT prophylaxis Current Visit: No Status: Acute Priority: Medium Code(s): UGA9192 - SNOMED Code(s): 028464970 Comment: - Heparin SubQ Status and Disposition: Inpatient, likely D/C tomorrow after urine culture.
[2019-02-26] MEDS: cefTRIAXone(*) 1 GM in NS 0.9% 50 ML* 50 ML IVPB SCH (16:41)
[2019-02-26] MEDS ORDERED: Glycerin ADULT SUPP PR PRN (18:32)
[2019-02-26] MEDS: Nicotine Patch Removal NOTE PATCH OFF SCH (21:40)
[2019-02-27 08:04] LABS: BUN/Creatinine Ratio 13.4 (8-20); Calcium 7.9 mg/dL (8.6-10.3); EGFR Non-African American 24.8 (>60); Magnesium 2.1 mg/dL (1.9-2.7); Potassium 4.9 mmol/L (3.5-5.0)
[2019-02-27] MEDS: amLODIPine TAB* 5 MG PO SCH (09:06)
[2019-02-27] MEDS: Senna TAB 8.6 mg* TAB PO PRN (09:06)
[2019-02-27] MEDS: Atorvastatin* 80 MG TAB PO SCH (09:06)
[2019-02-27] MEDS: Aspirin 81 mg CHEW TAB* 81 MG TAB.CHEW PO SCH (09:06)
[2019-02-27] MEDS: Magnesium Hydroxide LIQ* 30 ML UDC PO PRN (09:07)
[2019-02-27] MEDS: Finasteride TAB* 5 MG PO SCH (09:07)
[2019-02-27] MEDS: Nicotine PATCH 14 MG/24 HR* PATCH TRANSDERM SCH (09:07)
[2019-02-27] MEDS: Polyethylene Glycol 3350* 17 GM PACKET PO PRN (09:07)
[2019-02-27 13:53] LABS: Hematocrit 31 % (42-52)
[2019-02-27 15:43] VITALS: BP 131/52
--- NOTE | 2019-02-28 01:13 | DS ---
CC: Dr. Romina Bolden * DISCHARGE SUMMARY: DATE OF ADMISSION: 02/24/19 DATE OF DISCHARGE: 02/27/19 PRIMARY CARE PROVIDER: Dr. Romina Bolden. MY ATTENDING WHILE IN THE HOSPITAL: Dr. Cortez Ji.* (DICTATED BY JAQUAN CASANOVA) PRIMARY DISCHARGE DIAGNOSES: 1. Urinary tract infection, possible pyelonephritis. 2. Hyperkalemia. 3. Anemia. 4. Acute kidney injury. SECONDARY DISCHARGE DIAGNOSES: 1. Chronic kidney disease. 2. Benign prostatic hypertrophy. 3. History of coronary artery disease, status post coronary artery bypass graft. 4. Hypertension. 5. Hyperlipidemia. 6. Type 2 diabetes mellitus. 7. Chronic obstructive pulmonary disease. 8. Transient ischemic attack. 9. History of aortic valve replacement. 10. Tobacco abuse. STUDIES DONE WHILE IN THE HOSPITAL: Chest x-ray from 02/24/19, read as no active cardiopulmonary disease. Pelvis CT from 02/24/19, read as small nonobstructive renal calcification. No hydronephrosis or ureteral stone. Renal cyst, largest in the right kidney at 6 cm. Infiltration of the perirenal fat, maybe related to previous or current inflammation, infection or previous obstruction. This is nonspecific currently. Incomplete dissection versus underlying inflammation, infection or other infiltrative pathology with wall thickening at the neck of the urinary bladder. No panniculitis. No other acute disease seen on non-enhanced study. MEDICATIONS AT DISCHARGE: 1. Lipitor 80 mg p.o. daily. 2. Darifenacin 15 mg p.o. daily. 3. Tizanidine 2 mg p.o. b.i.d. as needed. 4. Myrbetriq 50 mg p.o. daily. 5. Norvasc 10 mg p.o. daily. 6. Finasteride 5 mg p.o. daily. 7. Hydrochlorothiazide 12.5 mg p.o. daily. 8. Patiromer 8.4 g p.o. every other day. 9. MiraLAX 17 g p.o. daily as needed. 10. Magnesium oxide 250 mg p.o. daily. 11. Cefuroxime 250 mg p.o. b.i.d. x8. New Medications at Discharge: Cefuroxime and patiromer every other day. Medications Discontinued at Discharge: Veltassa daily. HOSPITAL COURSE: This is a brief summary of the patient's presentation. For more details, please see the admission notes from Dr. Con Tello on . In brief, the patient is a 78-year-old male with a past medical history significant for the above, who presented to the emergency department with urinary frequency, feeling poorly, and poor appetite, and came to the emergency department. The patient, in the emergency department, was found to have a urinalysis with concordant positive nitrite and 3+ leukocyte esterase, and elevated CRP, elevated white blood cell count. The patient, however, lacked temperature, hypotension, hypoxia or tachypnea. The patient was started on ceftriaxone and improved greatly. The patient had bladder scan with minimal postvoid residuals. The patient's urine culture grew Enterobacter. The patient 's blood cultures were negative. The patient was started on fluids. The patient initially had a creatinine of 3.16, from his baseline of around 2.5, and this improved with fluids. The patient's potassium was initially 5.5 and decreased with Veltassa and fluids, but when these were stopped, it began to rise again. The patient felt better over the course of his hospitalization. The patient felt essentially back to his normal self on 02/27/19, except for being constipated. The patient was given a bowel regimen, had a small bowel movement. The patient was stable enough for discharge on 02/27/19. PHYSICAL EXAMINATION ON THE DAY OF DISCHARGE: General: The patient is a 78- year- old male, who appears his stated age, sitting comfortably on the bed, in no acute distress. Vital Signs: At the time of discharge, temperature 97.5, pulse rate 70, respiratory rate 20, oxygen saturation 99% on room air, blood pressure 131/52. HEENT: Head: Normocephalic, atraumatic. Sclerae anicteric. No conjunctival injection. Nasal mucosa is moist. Oral mucosa is moist. No pharyngeal erythema, discharge or exudate. Neck: Supple, nontender. No lymphadenopathy. No carotid bruits auscultated. No JVD. Cardiac: Regular rate and rhythm. Grade 2/6 systolic ejection murmur, heard best at the right upper sternal border. No adventitious lung sounds. Pulses 2+ in the bilateral dorsalis pedis, posterior tibialis, and radial areas. No bilateral lower extremity edema noted. Respiratory: Clear to auscultation bilaterally. No wheezes, rales or rhonchi. Good air exchange bilaterally. Abdomen: Soft, nontender, nondistended. Bowel sounds present and normoactive in all 4 quadrants. No hepatosplenomegaly. No abdominal bruits auscultated. Genitourinary: No suprapubic or CVA tenderness. Skin: Clean, dry, and intact. No rashes. Neuro: Cranial nerves II through XII intact. No focal deficits. Alert and oriented x3. Psychiatric: Pleasant and cooperative. DISCHARGE PLAN BY PROBLEM: 1. Urinary tract infection due to Enterobacter cloacae: The patient received 3 doses of ceftriaxone in the hospital. The patient will be continued on 4 more days of Ceftin 250 mg twice daily due to his renal function. The patient is not retaining urine. The patient will continue on his finasteride and his Myrbetriq. The patient will follow up with his urologist within 1 month for urologic management and to assess again for retention and possible need for intervention, particularly if the patient continues to have infections. The patient's white blood cell count has resolved and is showing no signs of systemic inflammatory response. 2. [id number]-[id number] kidney disease: The patient's renal function is essentially normal. However, he does continue to have a tendency for high potassium. The patient will be started on patiromer as above. The patient should follow up with his primary care provider within 1 week for repeat BMP. The patient should avoid potassium in his diet and will be given materials to this effect. 3. Anemia: The patient's anemia is at baseline. This is likely related to his chronic kidney disease and possibly underlying iron deficiency. This should be evaluated through his funeral service apprentice with consideration for IV iron and EPO injections. 4. Hyperkalemia: Treatment as above. The patient's potassium is 4.9 on the day of discharge. 5. Coronary artery disease: Continue secondary prevention. 6. Diabetes mellitus type 2: Continue diet control. The patient's hemoglobin A1c was not checked in the hospital. 7. Chronic obstructive pulmonary disease: Continue inhalers as needed. Smoking cessation has been encouraged. 8. Hypertension: Continue amlodipine and hydrochlorothiazide. 9. Benign prostatic hypertrophy: Continue finasteride and mirabegron. DISPOSITION: To home. CONDITION: Stable. TIME SPENT: Approximately 60 minutes were spent on the discharge of this patient, 30 of which were spent [id number] with the patient, obtaining history and physical, and discussing treatment plan. JAQUAN CASANOVA [id number]/CPS #: [id number]
[2019-03-01] MEDS ORDERED: Patiromer POWDER* 8.4 GM PAK PO SCH (09:00)
== END 2019-02-27 16:45 | disposition home or self-care (01) | DRG 463 ==
LOC: ED 13:41 → MED 18:24
PROVIDERS: ADMIT Internal Medicine; ATTEND Internal Medicine
DX: N39.0 Urinary tract infection, site not specified (principal); N17.9 Acute kidney failure, unspecified; I13.0 Hypertensive heart and chronic kidney disease with heart failure and stage 1 through stage 4 chronic kidney disease, or unspecified chronic kidney disease; I50.30 Unspecified diastolic (congestive) heart failure; J44.9 Chronic obstructive pulmonary disease, unspecified; E87.5 Hyperkalemia; E11.22 Type 2 diabetes mellitus with diabetic chronic kidney disease; B96.89 Other specified bacterial agents as the cause of diseases classified elsewhere; D63.1 Anemia in chronic kidney disease; D64.9 Anemia, unspecified; N20.0 Calculus of kidney; N40.0 Benign prostatic hyperplasia without lower urinary tract symptoms; E78.5 Hyperlipidemia, unspecified; I25.10 Atherosclerotic heart disease of native coronary artery without angina pectoris; K59.00 Constipation, unspecified; N18.9 Chronic kidney disease, unspecified; F17.290 Nicotine dependence, other tobacco product, uncomplicated; F10.21 Alcohol dependence, in remission; Z95.1 Presence of aortocoronary bypass graft; Z95.2 Presence of prosthetic heart valve; Z88.8 Allergy status to other drugs, medicaments and biological substances; Z79.899 Other long term (current) drug therapy; Z81.1 Family history of alcohol abuse and dependence; Z82.5 Family history of asthma and other chronic lower respiratory diseases
CPT/HCPCS: 36415; 71045; 74176; 80048; 80053; 81003; 81015; 83605; 83735; 85014; 85018; 85025; 86140; 87040; 87077; 87086; 87186; 93005; 99284; A9270-GY; J0696; J3475

== ENCOUNTER 2019-03-08 01:53 | Inpatient (IN) | payer BC, MEDICARE ==
--- OUTSIDE RECORDS SUMMARY | 2019-03-08 02:05 | XMS REPORT | Summary of Care ---
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 Assisted Living Reason for Visit Reason Comments Hospital Follow Up Encounter Details Date Type Department Care Team Description 03/07/2019 Office Visit [facility] discharge follow -up (Primary Dx); Practice Romina Kaur MD CKD (chronic kidney disease), stage IV ([facility]); [address] [facility] Hyperkalemia; [place] [address] [place] [address] Acute cystitis without hematuria; [phone] Type 2 diabetes mellitus with stage 4 chronic kidney disease, with long-term current use of insulin ([facility]); Essential hypertension, benign; Chronic obstructive pulmonary disease, unspecified COPD type ([facility]); Fatigue, unspecified type; Anemia due to stage 4 chronic kidney disease ([facility]) Allergies Active Allergy Reactions Severity Noted Date Comments Diego Inhibitors Other 12/09/2017 Elevated potassium CKD Keflex GI Reaction 07/24/2011 Lisinopril Other 02/14/2019 Very high potassium Losartan Other 12/09/2017 Elevated potassium, chronic kidney disease Nsaids Other 04/13/2018 CKD documented as of this encounter (statuses as of 03/07/2019) Medications Medication Sig Dispensed Refills Start Date End Date Status Aspirin 81 MG Oral Tab EC Take 1 Tab by 0 Active mouth DAILY. Blood Glucose Monitoring by Does not 1 Kit 0 04/25/2015 Active Suppl (BLOOD GLUCOSE apply route. 1. METER) Does not apply Kit Brand:Freestyle Insulinx 2. Dx:E11.9 3. Insulin dependent 4. Test Blood Glucose 4 time(s) A DAY ----before meals & at bedtime Doxercalciferol Take by mouth. 0 Active (HECTOROL) 0.5 MCG Oral Cap albuterol HFA (VENTOLIN) Take 2 Puffs by 1 Inhaler 1 05/29/2017 Active 108 (90 Base) MCG/ACT inhalation EVERY Inhalation Aero SIX HOURS SolnIndications: Chronic NEEDED obstructive pulmonary (wheezing). disease, unspecified COPD type ([facility]) FREESTYLE INSULINX TEST USE DIRECTED 100 Each 11 09/25/2017 Active In Vitro Strip THREE TIMES A DAY Brinzolamide-Brimonidine Place 1 Drop to 0 11/24/2017 Active (SIMBRINZA) 1-0.2 % the external eye Ophthalmic Suspension THREE TIMES DAILY. Left eye bimatoprost (LUMIGAN) Place 1 Drop in 0 11/24/2017 Active 0.03 % Ophthalmic both eyes EVERY Solution BEDTIME. 1 drop both eyes tiotropium (SPIRIVA Take 18 mcg by 0 Active HANDIHALER) 18 MCG inhalation Inhalation Cap DAILY. Cyanocobalamin (VITAMIN Place 1 Tab 30 Tab 0 03/12/2018 Active B-12) 1000 MCG Sublingual under tongue SL TabIndications: DAILY. Malaise and fatigue loratadine Take 1 Tab by 30 Tab 0 04/13/2018 Active (CLARITIN,ALAVERT) 10 MG mouth EVERY Oral TabIndications: COPD OTHER DAY. with acute bronchitis ([facility]) Tadalafil (CIALIS) 20 MG Take 1 Tab by 10 Tab 1 05/18/2018 Active Oral TabIndications: mouth NEEDED Erectile dysfunction, (sex activity). unspecified erectile dysfunction type Tizanidine 2 MG Oral Take 2 mg by 30 Tab 5 07/13/2018 Active TabIndications: Muscle mouth EVERY spasm BEDTIME NEEDED (muscle cramps). Nicotine NASAL spray 10 Corona 1 Corona in 40 mL 3 08/26/2018 Active mg/mL 10 MG/ML Nasal nose FOUR TIMES SolutionIndications: DAILY NEEDED Smoker (smoking). Tiotropium Take 2 INHL by 1 Inhaler 5 08/26/2018 Active Wilmer-Olodaterol inhalation (STIOLTO RESPIMAT) DAILY. 2.5-2.5 MCG/ACT Inhalation Aero Soln atorvastatin (LIPITOR) 80 TAKE ONE TABLET 30 Tab 5 10/25/2018 Active MG Oral TabIndications: BY MOUTH ONCE Mixed hyperlipidemia DAILY Mirabegron ER 50 MG Oral Take 50 mg by 60 Tab 3 11/11/2018 Active TABLET SR 24 HR mouth DAILY. finasteride (PROSCAR) 5 TAKE ONE TABLET 90 Tab 1 01/10/2019 Active MG Oral TabIndications: BY MOUTH ONCE Benign nodular prostatic DAILY hyperplasia without lower urinary tract symptoms Polyvinyl Place to the 0 Active Alcohol-Povidone (REFRESH external eye. OP) amLodipine (NORVASC) 5 MG Take 1 Tab by 90 Tab 1 02/02/2019 Active Oral TabIndications: mouth DAILY. New Essential hypertension, lower dose benign patiromer (VELTASSA) 8.4 Take 8.4 g by 0 Active g Oral Pack mouth DAILY NEEDED (hyperkalemia). Polyethylene Glycol 3350 Take 17 g by 0 Active (MIRALAX PO) mouth DAILY NEEDED (constipation). hydrochlorothiazide Take 1 Cap by 30 Cap 3 02/14/2019 Active (HCTZ, ORETIC) 12.5 MG mouth DAILY. Oral CapIndications: Essential hypertension, benign Magnesium 250 MG Oral Take 1 Tab by 90 Tab 3 02/15/2019 Active TabIndications: Low mouth DAILY. magnesium level Darifenacin Hydrobromide TAKE ONE TABLET 30 Tab 3 02/17/2019 Active 15 MG Oral TABLET SR 24 BY MOUTH ONCE HR DAILY documented as of this encounter (statuses as of 03/07/2019) Active Problems Problem Noted Date Type 2 diabetes mellitus with stage 4 chronic kidney disease, without 2018 long-term current use of insulin Trochanteric bursitis of both hips 09/17/2017 Hip pain, bilateral 08/07/2017 Coronary artery disease involving [place] coronary artery of [place] heart 01/15 without angina pectoris Type 2 diabetes mellitus with stage 4 chronic kidney disease 01/16/2016 Gross hematuria 08/03/2015 Elevated prostate specific antigen (PSA) 08/03/2015 CAD (coronary artery disease) 11/07/2014 Overview: CABG September 2014 Hx of CABG 06/22/2014 Overview: Dr.Lynn Bell is his administrative assistant data entry Obesity, unspecified 06/10/2012 Overview: BMI 31 This [...] CABG September 2014, Dr. Catrachito Casas at [facility] in [place] S/P AVR (aortic valve replacement) HTN (hypertension) Gout Sleep apnea Overview: never followed up on sleep study, agrees to set this up today 01/16/16 documented as of this encounter (statuses as of 03/07/2019) Resolved Problems Problem Noted Date Resolved Date Septicemia due to Enterobacter species 11/13/2017 07/01/2018 Type 2 diabetes mellitus with stage 4 chronic kidney 09/11/2016 03/12/2018 disease, with long-term current use of insulin Hyperkalemia 10/31/2011 07/31/2017 Overview: Due to renal disease Potassium Level 5.8-6 2011 Diabetes mellitus 03/12/2018 documented as of this encounter (statuses as of 03/07/2019) Immunizations Name Administration Dates Next Due Depo [...] Sign Reading Time Taken Comments Blood Pressure 110/58 03/07/2019 1:03 PM EDT Pulse 48 03/07/2019 1:03 PM EDT Temperature 37.3 03/07/2019 1:03 PM EDT C (99.2 F) Respiratory Rate - - Oxygen Saturation 95% 03/07/2019 1:03 PM EDT Inhaled Oxygen Concentration - - Weight 71.7 kg (158 lb) 03/07/2019 1:03 PM EDT Height 170.2 cm (5' 7") 03/07/2019 1:03 PM EDT Body Mass Index 24.75 03/07/2019 1:03 PM EDT documented in this encounter Patient Instructions Patient InstructionsRomina Bolden MD - 03/07/2019 11:20 AM EDTYou were very tired and unsteady today but have not eaten all day. We gave you two cans of juice, which helped. I ordered laboratory tests today and will send you the results. I am glad you are seeing the electroplating laborer: Please keep your follow up with him. No med changes were made today. I gave you a work note to be out today and tomorrow. documented in this encounter Progress Notes Romina Bolden MD - 03/07/2019 11:20 AM EDT Nursing Notes: Ange Dorado LPN 03/07/2019 1:11 PM Signed Chief Complaint Patient presents with Hospital Follow Up Daily Release And Dupe Printer: SMA Merlene Resin Maker: Dr Bell Carbon Coating Machine Operator: Dr Calles. Urologist: Dr Cordova. Chief Complaint: Hospital Follow up HPI: TCM Statement. Review of the hospitalization: I am seeing for transition of care following hospitalization at [facility] The date of discharge was: 02/24-02/27/19 The discharge diagnosis was Urinary tract infection, hyperkalemia, anemia, EDILSON. I reviewed the discharge summary, discharge instructions, and pertinent additional documentation obtained during hospitalization. I reconciled the medications. I also reviewed the Transition of Care documentation done by staff. The tests that were not available at the time of discharge were reviewed. Additional tests which are not yet available include: none Renal CT 02/24/19: Small non-obstructing renal calcification, no hydronephrosis or ureteral stone, renal cyst, right, 6 cm, inflammation of the perirenal fat, incomplete dissection or inflammation of the urinary bladder. New medications on discharge: ceruroxime 250 mg bid x 4 more days, and patriomer qod (Valt[place]) Urine culture grew E. Coli, BC negative. creatinien 09/04, potassium 5.5 on admission potassium improved with Valt[place] and fluids. It started to rise after it was discontinued. Anemia was felt due to his chronic kidney disease and iron def., it was recommended he see his electroplating laborer. Discharge H/H was Discharge creatinine 2.54, potassium 4.[address] Joan Friend, electroplating laborer, today at [facility]. He ordered repeat laboratory tests and started discussing dialysis. Since hospitalization has patient improved? He is not sure. He had one episode of diarrhea this am. In the hospital he was constipated. Current patient concerns: Unsteady on his feet, had to walk a long way to find his kidney doctor when he got here. He was fine when he went to his other appointment earlier today, but now feels exhausted. He has not eaten today, so wonders if his sugar is low. We gave him 2 cans of juice. He felt better. His glucose was 113 on fingerstick. He asked about having repeat laboratory tests today Patient Active Problem List Diagnosis Essential hypertension, benign Benign prostatic hyperplasia with urinary obstruction Type 2 diabetes mellitus with renal manifestations (HCC) Leg cramps Tobacco use disorder Chronic renal insufficiency COPD (chronic obstructive pulmonary disease) (HCC) Obesity, unspecified Aortic stenosis CAD (coronary artery disease) Gross hematuria Elevated prostate specific antigen (PSA) Coronary artery disease involving [place] coronary artery of [place] heart without angina pectoris Type 2 diabetes mellitus with stage 4 chronic kidney disease (HCC) Hip pain, bilateral Trochanteric bursitis of both hips S/P AVR (aortic valve replacement) Hx of CABG HTN (hypertension) Gout Sleep apnea Type 2 diabetes mellitus with stage 4 chronic kidney disease, without long-term current use of insulin (HCC) Past Medical History: Diagnosis Date Aortic stenosis [...] of CABG 2014 Dr.Lynn Bell is his administrative assistant data entry S/P AVR (aortic valve replacement) Sleep apnea never followed up on sleep study, agrees to set this up today 01/16/16 VHD (valvular heart disease) 2015 aortic valve replacement, equine Past Surgical History: Procedure Laterality Date CARDIAC CATH 03/26/12 GA RPLCMT AORTIC VALVE OPN ALLOGRAFT VALVE FREEHAND 10/04/2014 Porcine valve, Dr. Walsh, [facility] [place] Current Outpatient Medications: albuterol HFA (VENTOLIN) 108 [...] 15 MG Oral TABLET SR 24 HR, TAKE ONE TABLET BY MOUTH ONCE DAILY, Disp: 30 Tab, Rfl: 3 Doxercalciferol (HECTOROL) [...] EVERY OTHER DAY., Disp: 30Tab, Rfl: 0 Magnesium 250 MG Oral Tab, Take 1 Tab by mouth DAILY., Disp: 90 Tab, Rfl : 3 Mirabegron ER 50 MG Oral TABLET SR 24 HR, Take 50 mg by mouth DAILY., Disp: 60 Tab, Rfl: 3 Nicotine NASAL spray 10 mg/mL 10 MG/ML Nasal Solution, Corona 1 Corona in nose FOUR TIMES DAILY NEEDED (smoking)., [...] by inhalation DAILY., Disp: , Rfl: Tiotropium Wilmer-Olodaterol (STIOLTO RESPIMAT) 2.5-2.5 MCG/ACT Inhalation Aero Soln, [...] Last attempt to quit: 06/22/2017 Years since quittin.7 Smokeless tobacco: Never Used Substance and Sexual Activity Alcohol use: No Drug use: No Sexual activity: Yes Partners: Female Lifestyle Physical activity: Days per week: Not on file Minutes per session: Not on file Stress: Not on file Relationships Social connections: Talks on phone: Not on file Gets together: Not on file Attends yazidi service: Not on file Active member of [...] Concern Yes Social History Narrative Lives in 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 In the hospital he was constipated negative for - abdominal pain, blood in stools or melena Genito-Urinary ROS: negative for - dysuria Neurological ROS: negative for - syncope, headache Exam: BP 110/58 (BP Location: Right arm, Patient Position: Sitting) | Pulse (!) 48 | Temp 99.2 F (37.3 C) (Tympanic) | Ht 5' 7" (1.702 m) | Wt 158 lb ( 71.7 kg) | SpO2 95% | BMI 24.75 kg/m Physical Exam Physical Examination: General appearance - alert, well appearing, and in no distress Mental status - alert, oriented to person, place, and time, normal mood, behavior, speech, dress, motor activity, and thought processes Eyes - pupils equal and reactive, extraocular eye movements intact, sclera anicteric Ears - bilateral TM's and external ear canals normal Neck - supple, no cervical or supraclavicular [...] clubbing or cyanosis ASSESSMENT/PLAN: ICD-9-CM ICD-10-CM 1. Hospital discharge follow-up V67.59 Z09 2. CKD (chronic kidney disease), stage IV ([facility]) 585.4 N18.4 BASIC METABOLIC PANEL BASIC METABOLIC PANEL 3. Hyperkalemia 276.7 E87.5 4. Acute cystitis without hematuria 595.0 N30.00 5. Type 2 diabetes mellitus with stage 4 chronic kidney disease, with long-term current use of insulin ([facility]) 250.40 E11.22 ACCU-CHECK GLUCOSE (AMB POCT) 585.4 N18.4 V58.67 Z79.4 6. Essential hypertension, benign 401.1 I10 7. Chronic obstructive pulmonary disease, unspecified COPD type ([facility]) 496 J44.9 8. Fatigue, unspecified type 780.79 R53.83 9. Anemia due to stage 4 chronic kidney disease ([facility]) 285.21 N18.4 CBC NO DIFFERENTIAL 585.4 D63.1 CBC NO DIFFERENTIAL FS glucose: 113 Coordination of care. - I am satisfied that appropriate referrals are in place to deal with the problems identified during hospitalization, and that the patient has adequate community resources and support in place. I confirmed the patient's understanding of the diagnosis and plan of care. Specific education that was provided today: Patient Instructions You were very tired and unsteady today but have not eaten all day. We gave you two cans of juice, which helped. I ordered laboratory tests today and will send you the results. I am glad you are seeing the electroplating laborer: Please keep your follow up with him. No med changes were made today. I gave you a work note to be out today and tomorrow. Author: Romina Bolden MD 03/07/2019 14:00 documented in this encounter Plan of Treatment Date Type Specialty Care Team Description 03/28/2019 Office Visit Family Practice Romina Bolden MD [address] [place] [address] [phone] 06/09/2019 Office Visit Pulmonary Jaswinder Calles MD [address] [place] [address] Name Type Priority Associated Diagnoses Date/Time BASIC METABOLIC PANEL Lab Routine CKD (chronic kidney 03/07/2019 2:03 PM EDT disease), stage IV (HCC) CBC NO DIFFERENTIAL Lab Routine Anemia due to stage 4 03/07/2019 2:03 PM EDT chronic kidney disease (HCC) Name Type Priority Associated Diagnoses Order Schedule BASIC METABOLIC PANEL Lab Routine CKD (chronic kidney Expected: 03/07/2019 disease), stage IV (HCC) (Approximate), Expires: 03/07/2020 CBC NO DIFFERENTIAL Lab Routine Anemia due to stage 4 Expected: 03/07/2019 chronic kidney disease (Approximate), (HCC) Expires: 03/07/2020 ACCU-CHECK GLUCOSE (AMB POCT Routine Type 2 diabetes mellitus Ordered: POCT) with stage 4 chronic kidney disease, with long-term current use of insulin (HCC) Health Maintenance Due Date Last Done Comments [...] Author Type Problems Progress Blood Pressure Blood 110/58 No [place], < 140/90 Pressure (03/07/2019 Romina Kaur, 1:03 PM EDT) Note: This is an individualized treatment [...] Diabetes 5.8 (01/03/2019 3:45 No Romina Bolden PM EDTBrennen Kaur MD Note: This is an individualized treatment (diabetes control, HgbA1C) goal for Kamar Segura: Displayed above is your progress towards your HgbA1C goal. Your goal is shown above (on the left); your most recent HgbA1C is shown on the right. Note that lower numbers are better. Keep immunizations current Lifestyle Romina Smith MD Note: This is an individualized lifestyle [...] discharge follow-up - Primary Other follow-up examination CKD (chronic kidney disease), stage IV (HCC) Chronic kidney disease, Stage IV (severe) Hyperkalemia Hyperpotassemia Acute cystitis without hematuria Acute cystitis Type 2 diabetes mellitus with stage 4 chronic kidney disease, with long-term current use of insulin (HCC) Essential hypertension, benign Chronic obstructive pulmonary disease, unspecified COPD type (HCC) Fatigue, unspecified type Anemia due to stage 4 chronic kidney disease (HCC) documented in this encounter Insurance Payer Benefit Plan / Subscriber ID Effective Dates Phone Address Type Group LARA MOOREBS xxxxxxxxxxxx 2016-Present [employer] ([place]) [place] [address] documented as of this encounter
--- NOTE | 2019-03-08 03:31 | ED ---
Complex/Multi-Sys Presentation - HPI Summary HPI Summary: Patient is a 78 y/o M presenting to [facility] for evaluation of high levels of potassium. He states that he was seen at [facility] for a routine follow- up. Patient was called about his elevated levels and instructed to come to ED. He reports no Sx. PMHx of diabetes, LVH, and stage 4 kidney failure. Patient is not on dialysis. On triage, pain is denied, nothing is noted to aggravate/ alleviate Sx. Home medications and allergies are reviewed. - History Of Current Complaint Chief Complaint: EDGeneral Time Seen by Provider: 03/08/19 03:21 Hx Obtained From: Patient Onset/Duration: Lasting Days - high potassium from labs yesterday Timing: Days - high potassium from labs yesterday Severity Currently: None Location: Negative Aggravating Factor(s): nothing Alleviating Factor(s): nothing Associated Signs And Symptoms: Positive: Other - high potassium from labs yesterday; no pain, no other Sx - Allergies/Home Medications Allergies/Adverse Reactions: Allergies Allergy/AdvReac Type Severity Reaction Status Date / Time cephalexin [From Keflex] AdvReac N/V Verified 03/08/19 01:57 Home Medications: Home Medications Aspirin [Aspirin EC] 81 mg PO DAILY 03/08/19 [History Confirmed 03/08/19] PMH/Surg Hx/FS Hx/Imm Hx Endocrine/Hematology History: Reports: Hx Anticoagulant Therapy, Hx Blood Transfusions, Hx Diabetes Denies: Hx Thyroid Disease, Hx Unexplained Bleeding Cardiovascular History: Reports: Hx Angina, Hx Congestive Heart Failure, Hx Coronary Artery Disease, Hx Hypercholesterolemia, Hx Hypertension, Hx Myocardial Infarction, Hx Valvular Heart Disease - aortic valve replacement, Other Cardiovascular Problems/Disorders - AORTIC STENOSIS Denies: Hx Auto Implanted Cardiovert Defib, Hx Congenital Heart Disease, Hx Pacemaker/ICD, Hx Syncope Respiratory History: Reports: Hx Asthma, Hx Chronic Obstructive Pulmonary Disease (COPD), Hx Sleep Apnea - pt states he doesn't wear CPAP anymore Comment Only: Other Respiratory Problems/Disorders - SOB GI History: Denies: Hx Ulcer Comment Only: Other GI Disorders - HERNIA REPAIR History: Reports: Hx Benign Prostatic Hyperplasia, Hx Chronic Renal Failure - CKD stage 3, Hx Renal Disease - RENAL FUNCTION DUE TO DIABETES, Other Problems/Disorders - chronic renal insufficiency Denies: Hx Dialysis Musculoskeletal History: Reports: Hx Back Problems, Hx Gout, Other Musculoskeletal History - leg and foot cramps Denies: Hx Arthritis, Hx Osteoporosis Sensory History: Reports: Hx Contacts or Glasses Denies: Hx Cataracts, Hx Eye Injury, Hx Glaucoma, Hx Deafness, Hx Hearing Aid , Hx Hearing Problem Opthamlomology History: Reports: Hx Contacts or Glasses Denies: Hx Cataracts, Hx Eye Injury, Hx Glaucoma Neurological History: Reports: Hx Transient Ischemic Attacks (TIA) Denies: Hx Dementia, Hx Developmental Delay, Hx Migraine, Hx Seizures, Hx Spinal Cord Injury Psychiatric History: Reports: Hx Anxiety Denies: Hx Attention Deficit Hyperactivity Disorder, Hx Eating Disorder, Hx Depression, Hx Panic Disorder, Hx Post Traumatic Stress Disorder, Hx Inpatient Treatment, Hx Community Mental Health Tx, Hx Schizophrenia, Hx Bipolar Disorder , Hx Suicide Attempt, Hx of Violent Episodes Against Others, Hx Substance Abuse , Other Psychiatric Issues/Disorders - Surgical History Surgery Procedure, Year, and Place: ABDOMINAL HERNIA REPAIR, skull fracture in the . Aortic valve replacement September 2014 Hx Anesthesia Reactions: No - Immunization History Date of Tetanus Vaccine: unknown Date of Influenza Vaccine: None Infectious Disease History: No Infectious Disease History: Denies: Hx Clostridium Difficile, Hx Hepatitis, Hx Human Immunodeficiency Virus (HIV), Hx of Known/Suspected MRSA, Hx Shingles, Hx Tuberculosis, Hx Known/ Suspected VRE, Hx Known/Suspected VRSA, History Other Infectious Disease, Traveled Outside the [place] in Last 30 Days - Family History Known Family History: Positive: Cardiac Disease, Hypertension Negative: Diabetes - Social History Alcohol Use: None Alcohol Amount: SOCIAL Hx Substance Use: No Substance Use Type: Reports: None Substance Use Comment - Amount & Last Used: pt confused; current substance use is unknown, but no known history Hx Tobacco Use: Yes Smoking Status (MU): Light Every Day Tobacco Smoker Type: Cigars Amount Used/How Often: 1-2 CIGARS/DAY Length of Time of Smoking/Using Tobacco: 57 years Have You Smoked in the Last Year: Yes Review of Systems Constitutional: Other - high potassium from labs yesterday Negative: Fever Negative: Myalgia All Other Systems Reviewed And Are Negative: Yes Physical Exam - Summary Physical Exam Summary: Appearance: Well-appearing, Well-nourished, lying in bed comfortably Skin: Warm, dry, no obvious rash Eyes: sclera anicteric, no conjunctival pallor ENT: mucous membranes moist, pharynx appears normal Neck: Supple, nontender Respiratory: Clear to auscultation, no signs of respiratory distress Cardiovascular: Normal S1, S2. No murmurs. Normal distal pulses in tibial and radial bilaterally. Abdomen: Soft, nontender, normal active bowel sounds present Musculoskeletal: Normal, Strength/ROM Intact Neurological: A&Ox3, awake and alert, mentation is normal, speech is fluent and appropriate Psychiatric: affect is normal, does not appear anxious or depressed Triage Information Reviewed: Yes Vital Signs On Initial Exam: Initial Vitals Temp Pulse Resp BP Pulse Ox 98.7 F 75 20 150/71 100 03/08/19 01:55 03/08/19 01:55 03/08/19 01:55 03/08/19 01:55 03/08/19 01:55 Vital Signs Reviewed: Yes Diagnostics - Vital Signs Vital Signs Temp Pulse Resp BP Pulse Ox 03/08/19 01:55 98.7 F 75 20 150/71 100 - Laboratory Result Diagrams: 03/11/19 02:52 03/11/19 02:59 Lab Statement: Any lab studies that have been ordered have been reviewed, and results considered in the medical decision making process. - EKG 0336 Cardiac Rate: NL - rate of 67 BPM EKG Rhythm: Sinus Rhythm Summary of EKG Findings: EKG showed NSR with rate of 67 BPM, wild T wave prominence relative to prior tracing, but QRS normal and J point elevation is stable. ED physician reviewed and interpreted this EKG. Re-Evaluation - Re-Evaluation First Eval Re-Evaluation Time: 05:38 Comment: Nurse reported that the patient had developed hives around IV site. Patient was given bendaryl 50 mg SLOW PUSH. Calcium infusion discontinued. Complex Multi-Symp Course/Dx Course Of Treatment: Patient is a 78 y/o M presenting to [facility] for evaluation of high levels of potassium. He states that he was seen at [facility] for a routine follow-up. Patient was called about his elevated levels and instructed to come to ED. He reports no Sx. PMHx of diabetes, LVH, and stage 4 kidney failure. Patient is not on dialysis. EKG showed NSR with rate of 67 BPM, wild T wave prominence relative to prior tracing, but QRS normal and J point elevation is stable. Bloodwork was obtained. Potassium was 7.Other abnormal values include WBC 12.7, RBC 3.57, Hgb 10.5 Hct 32, RDW 16, MPV 6.9, absolute neuts 9.9, absolute monos 1, carbon dioxide 21, BUN 40, creatinine 3.79. During ED course, patient received fluids, 10 units of insulin IV, dextrose 50 ml IV. He was started on calcium gluconate as well. However, nurse later reported that the patient had developed hives around IV site. He was given bendaryl 50 mg SLOW PUSH. Calcium infusion discontinued. Patient's case was discussed with Dr. Garza, Dr. Garza accepts for admission. - Diagnoses Provider Diagnoses: Hyperkalemia - Physician Notifications Discussed Care Of Patient With: Manuelito Garza Time Discussed With Above Provider: 04:53 Instructed by Provider To: Other - Patient's case was discussed with Dr. Garza, Dr. Garza accepts for admission. - Critical Care Time Critical Care Time: 30-74 min Discharge ED - Sign-Out/Discharge Documenting (check all that apply): Patient Departure - admit Patient Received Moderate/Deep Sedation with Procedure: No - Discharge Plan Condition: Fair Disposition: ADMITTED TO [facility] - Billing Disposition and Condition Condition: FAIR Disposition: Admitted to [facility] - Attestation Statements Document Initiated by Clive: Yes Documenting Rosa Elenaibsue: SARAH TERRELL Provider For Whom Clive is Documenting (Include Credential): CHINYERE LEON MD Scribe Attestation: SARAH Núñez, scribed for CHINYERE LEON MD on 03/12/19 at 0628. Scribe Documentation Reviewed: Yes Provider Attestation: The documentation as recorded by the SARAH camargo accurately reflects the service I personally performed and the decisions made by in, CHINYERE LEON MD Status of Scribe Document: Viewed
[2019-03-08 03:52] LABS: ABS Basophils 0.1 10^3/ul (0-0.2); ABS Eosinophils 0.2 10^3/ul (0-0.6); ABS Lymphocytes 1.5 10^3/ul (1.0-4.8); ABS Neutrophils 9.9 10^3/ul (1.5-7.7); Eosinophil % 1.4 %; Hematocrit 32 % (42-52); Hemoglobin 10.5 g/dL (14.0-18.0); Lymphocyte % 11.5 %; Mean Corpuscular HGB Conc 33 g/dL (31-36); Mean Corpuscular Hemoglobin 30 pg (27-31); Mean Corpuscular Volume 89 fL (80-94); Mean Platelet Volume 6.9 fL (7.4-10.4); Platelet Count 435 10^3/uL (150-450); Red Blood Count 3.57 10^6 /uL (4.18-5.48); Red Cell Distribution Width 16 % (10-15); White Blood Count 12.7 10^3/uL (3.5-10.8)
[2019-03-08 04:07] LABS: Albumin/Globulin Ratio 1.2 (1-3); BUN/Creatinine Ratio 10.6 (8-20); Calcium 8.7 mg/dL (8.6-10.3); EGFR African American 18.9 (>60); EGFR Non-African American 15.6 (>60); Globulin 3.3 g/dL (2-4); Total Bilirubin 0.5 mg/dL (0.2-1.0); Total Protein 7.3 g/dL (6.4-8.9)
[2019-03-08] MEDS ORDERED: NS 0.9% 1000 ML** 2,000 ML IV ONE (04:16)
[2019-03-08] MEDS ORDERED: Insulin REGULAR(*) 1 UNITS UNIT IV PUSH ONE (04:16)
[2019-03-08] MEDS ORDERED: Calcium Gluconate INJ* 2 GM in NS 0.9% 100 ML* 100 ML IVPB ONE (04:17)
[2019-03-08] MEDS ORDERED: Dextrose 50% Syringe 50 ML* 25 GM/50 ML SYRINGE IV PUSH ONE (04:34)
[2019-03-08] MEDS ORDERED: Dextrose 50% VIAL 50 ml ONE (04:34)
[2019-03-08] MEDS: Patiromer POWDER* 8.4 GM PAK PO SCH ×2 (04:37→09:28)
[2019-03-08] MEDS ORDERED: Dextrose 50% VIAL 50 ml IV ONE (05:00)
[2019-03-08] MEDS ORDERED: diPHENhydraMINE IV* 50 MG/ML 1 ml VIAL (BENADRYL) SLOW PUSH ONE (05:18)
[2019-03-08 07:31] LABS: Urine Appearance Turbid; Urine Bacteria Absent (Absent); Urine Bilirubin Negative (Negative); Urine Blood 1+ (Negative); Urine Color Yellow; Urine Glucose Negative (Negative); Urine Ketones Negative (Negative); Urine Nitrite Negative (Negative); Urine Protein 2+(100 mg/dL) (Negative); Urine Red Blood Cell 1+(3-5/hpf) (Absent); Urine Specific Gravity 1.008 (1.010-1.030); Urine Urobilinogen Negative (Negative); Urine White Blood Cell 3+(>20/hpf) (Absent)
[2019-03-08 08:18] LABS: BUN/Creatinine Ratio 10.7 (8-20); Calcium 8.9 mg/dL (8.6-10.3); EGFR African American 21.7 (>60); EGFR Non-African American 17.9 (>60)
[2019-03-08 08:20] LABS: Potassium 5.6 mmol/L (3.5-5.0)
[2019-03-08] MEDS ORDERED: tiZANidine TAB* 2 MG PO PRN (09:31)
[2019-03-08] MEDS ORDERED: Acetaminophen TAB* 325 MG PO PRN (09:34)
--- NOTE | 2019-03-08 15:53 | HP ---
CC: Dr. Bolden; Dr. Joan Friend * HISTORY AND PHYSICAL: DATE OF ADMISSION: 03/08/19 TIME OF EVALUATION: 9:15 a.m. PRIMARY CARE PROVIDER: Dr. Bolden. TRAY CASTING MACHINE OPERATOR: Dr. Joan Friend. CHIEF COMPLAINT: "They told me to come in." HISTORY OF PRESENT ILLNESS: Mr. Segura is a 78-year-old male with a past medical history of coronary artery disease, status post CABG, status post aortic valve replacement, hypertension, hyperlipidemia, BPH, irritable bladder, CKD stage 4, COPD, TIA, anemia of renal disease, prior history of alcoholism, recent admission for hyperkalemia, there was told by his primary care provider to come to the emergency room due to hyperkalemia. The patient was admitted to [facility] on 02/03/19 for similar reasons. At that point , his potassium was up to 7.3. He was admitted, GEOFF inhibitors were discontinued and patiromer was prescribed. He presented once again on 02/24/19 with acute on chronic renal failure, urinary tract infection and hyperkalemia. He was discharged home on 02/27/19 on patiromer every other day and the time of discharge, his potassium was 4.9. The patient states he went to see Dr. Friend yesterday and blood test had been ordered that he had done at [facility]. Last night, he was called and told that his potassium was elevated and that he needed to come to the emergency room. In emergency room, his repeat potassium is 7.0. The patient states that he has not committed any dietary indiscretion. On his prior admissions, he was educated about a low potassium diet and he states that he has been following the recommendations. He is also not on an GEOFF inhibitor and also not taking anti-inflammatories. Furosemide had been discontinued on his admission in January and he had been switched to hydrochlorothiazide. He was asymptomatic. He denied chest pain, palpitations, nausea, vomiting, shortness of breath, fever. He has nocturia and urinary urgency, but states that this is unchanged from his usual. On his prior admission in January, his urine culture grew Enterobacter greater than 100,000 colonies and he was treated with antibiotics, but states that his urinary symptoms are chronic and unchanged. The patient was discharged on cefuroxime. PAST MEDICAL HISTORY: 1. Coronary artery disease, status post CABG with reversed SVG to the RCA with aortic valve replacement with Xavier Magna pericardial valve in September [address] Casas at [facility]. He follows with Dr. Bell as outpatient. 2. Hypertension. 3. Hyperlipidemia. 4. BPH. 5. CKD stage 4 to 5. 6. COPD. 7. TIA. 8. Prior history of alcoholism. 9. Anemia of renal disease. 10. Admissions for hyperkalemia as described above. PAST SURGICAL HISTORY: 1. Status post CABG and AVR in 2015. 2. Status post cataract surgeries. MEDICATION LIST: 1. Amlodipine 10 mg p.o. daily. 2. Aspirin 81 mg p.o. daily. 3. Atorvastatin 80 mg p.o. daily. 4. Darifenacin 15 mg p.o. daily. 5. Finasteride 5 mg p.o. daily. 6. Hydrochlorothiazide 12.5 mg p.o. daily. 7. Magnesium oxide 250 mg p.o. daily. 8. Myrbetriq 50 mg p.o. daily. 9. Patiromer 8.4 g p.o. every other day. 10. Tizanidine 2 mg p.o. b.i.d. as needed for lower extremity pain. ALLERGIES: With CEPHALEXIN, the patient had nausea and vomiting. FAMILY HISTORY: Father at age 39 from alcoholism. Mother in her 50s with emphysema. SOCIAL HISTORY: He smokes 1 to 2 cigars a day, quit cigarettes in 2014. Denies current drug use or alcohol use. 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 Surrogate decision maker is his daughter, Loy Erickson, phone number . REVIEW OF SYSTEMS: A 14-point review of systems was performed and all the pertinent negatives and positive findings are in the HPI. PHYSICAL EXAMINATION GENERAL: The patient is an elderly gentleman, lying in the ED stretcher, in no acute distress. VITAL SIGNS: Temperature 98.7, heart rate 73, respiratory rate is 21, oxygen saturation 96% on room air, blood pressure is 156/61. HEENT: Pupils are equal, status post cataract surgery. CHEST: Breath sounds bilaterally with no added sounds. CVS: Normal S1, S2. Regular rate and rhythm with a systolic murmur. ABDOMEN: Soft, nontender. Bowel sounds present. EXTREMITIES: No edema. NEURO: He is alert and oriented x3. Able to move all 4 extremities. DIAGNOSTIC STUDIES/LAB DATA: The patient had a CBC that showed a WBC of 12.7, hemoglobin of 10.5, hematocrit of 32, platelets of 135,000 with 78% neutrophils. Chemistry showed a sodium of 136, potassium 7, chloride of 110, bicarb of 21, BUN of 40, creatinine of 3.79, glucose of 97, calcium is 8.7. LFTs were normal. Urinalysis showed 2+ protein, 1+ blood, 3+ LE, 3+ wbc's, 1+ rbc's. EKG done on 03/08/19 at 3:36 a.m. showed sinus rhythm at 67 beats per minute with no acute ischemic changes, signs of LVH and peaked T-waves on the anterior leads. Repeat EKG done at 8:52 showed improvement of the peaked T-waves. ASSESSMENT AND PLAN: Mr. Segura is a 78-year-old male with a past medical history of coronary artery disease, status post coronary artery bypass grafting ; status post aortic valve replacement; hypertension; hyperlipidemia; benign prostatic hyperplasia; chronic kidney disease stage 4; chronic obstructive pulmonary disease; transient ischemic attack; prior history of alcoholism; anemia of renal disease; recent admission for hyperkalemia that was referred to the emergency room for another episode of hyperkalemia. 1. Hyperkalemia. The patient is asymptomatic. His initial EKG showed peaked T - waves, but this is now resolved. It is unclear to me what provoked this episode at this time. He is not on medications that will cause hyperkalemia and he states that he is compliant with a renal diet at this point and also compliant with patiromer every other day, but despite all those measures, his potassium was once again 7 barely a week out from discharge. His renal function is worse now with a creatinine of 3.79 from 2.5 on his discharge. There was some question of the patient taking meloxicam, but he states that he is not taking this medication any longer and denies taking any other over-the- counter anti-inflammatory drugs. He was seen by Dr. Friend yesterday and the plan was to reconcile his medications and monitor the patient. The patient states that he was referred for dialysis education, but he is not interested in dialysis at this time. Nephrology consultation was requested with Dr. Guerrero to try and see what would be the best plan of care at this point. I believe we should increase his patiromer to daily, but Dr. Guerrero may have other recommendations to try and keep his potassium at a normal level. 2. Chronic kidney disease stage 4 to 5. The patient's GFR today is 18.9 and he is aware that he should start to be educated and make plans about dialysis and continue to follow with Dr. Friend. He does not appear to be dehydrated at this time and denies using NSAIDs, so this may represent just progression of disease. 3. Diarrhea. I suspect this is likely secondary to patiromer use. We will send stool workup including stool culture and stool for occult blood, but this appears to be a chronic issue for this patient with diarrhea on and off and now worsened with patiromer and antibiotic use, so he may have irritable bowel syndrome in combination with his irritable bladder syndrome. In any case, his diarrhea can be further worked up as outpatient by Dr. Bolden. 4. Abnormal urinalysis. The patient's UA shows 2+ protein, 1+ blood, 3+ LE, 3 + wbc's and this is likely associated with his renal disease. He just completed a course of cephalosporin treatment for a urinary tract infection and we will not start antibiotics at this time. We will follow up his urine culture. If the urine culture is persistently positive, he may need further workup for prostatitis including urology consultation. 5. Hypertension is controlled. We will continue amlodipine and hydrochlorothiazide. 6. Coronary artery disease, stable. We will continue aspirin and atorvastatin. 7. Irritable bladder/benign prostatic hyperplasia. Continue darifenacin, finasteride and Myrbetriq. 8. DVT prophylaxis. The patient has a score of 3 on the DVT Prophylaxis Risk Assessment Guide and he will be started on Lovenox, adjusted for his renal function. 9. Code status is full. TIME SPENT: Approximately 50 minutes were spent with patient interview, medical records review, physical examination to complete this admission; more than half of this time was spent [id number] with the patient and coordination of care. [id number]/[facility] #: [id number] IGNACIO
[2019-03-08 16:25] LABS: BUN/Creatinine Ratio 10.4 (8-20); Calcium 7.9 mg/dL (8.6-10.3); EGFR African American 21.8 (>60)
[2019-03-08] MEDS ORDERED: SODIUM BICARBONATE IV SCH (18:00)
[2019-03-08] MEDS ORDERED: D5W IV SCH (18:00)
[2019-03-08] MEDS ORDERED: 1/2 NS IV SCH (18:00)
--- NOTE | 2019-03-08 20:26 | PN ---
PROGRESS NOTE: DATE OF SERVICE: 03/08/19 HISTORY: Mr. Segura had been seen by me on a previous admission this month. In addition, he was seen in the office by my partner, Dr. Friend, just yesterday. According to Dr. Friend, Mr. Segura had been taking Mobic at that point and he had that stopped. According to Dr. Solis, apparently, the Mobic had been stopped a few days prior to this. He had not been eating well and he did have some diarrhea and it is noted that his weight has actually gone down about 3 kg since his hospitalization about a month ago. At the present time, he feels fine. He denies lightheadedness, dizziness, chest pain, shortness of breath, nausea, or vomiting. There is no more diarrhea. PHYSICAL EXAMINATION: He is afebrile. His blood pressure is 151/79, respirations 21, pulse 79. He is anicteric. His extraocular muscles are intact. Mucous membranes are moist. The chest is clear. The heart revealed a regular rhythm. I did not hear any murmurs. The abdomen is soft and nontender. I felt there was trace edema. LABORATORY DATA: A review of his laboratory studies reveals a white count of 12.7, hemoglobin 10.5. Sodium 135, potassium 5.6, total CO2 of 17, chloride 111 , BUN 36, creatinine of 3.36. IMPRESSION AND PLAN: Type 4 renal tubular acidosis. This would be quite common in this setting and his acidosis should be buffered. That will typically handle the hyperkalemia that is simultaneous with that. His renal function is worse than it had been. His baseline creatinine was 2.4 on . His creatinine has come down somewhat since admission. It was 3.79 in the emergency room and 3.36 this morning. I think the likely thing is that he became somewhat dehydrated and that together with the use of nonsteroidal anti- inflammatory agents worsened his renal function and worsened his type 4 renal tubular acidosis. Obviously, I would continue to withhold anti-inflammatories. GEOFF inhibition is problematic in this setting. Obviously, we should allow his renal function to come into steady state before reevaluating his renal function and deciding whether to prepare him for renal replacement therapy at some point. [id number]/[facility] #: [id number] [facility]
[2019-03-09 00:10] LABS: BUN/Creatinine Ratio 10.8 (8-20); Calcium 7.9 mg/dL (8.6-10.3); EGFR African American 22.6 (>60); EGFR Non-African American 18.7 (>60)
[2019-03-09 00:18] LABS: Potassium 5.6 mmol/L (3.5-5.0)
[2019-03-09] MEDS: D5W IV SCH ×2 (05:28→16:25)
[2019-03-09] MEDS: 1/2 NS IV SCH ×2 (05:28→16:25)
[2019-03-09] MEDS: SODIUM BICARBONATE IV SCH ×2 (05:28→16:25)
[2019-03-09 06:05] LABS: BUN/Creatinine Ratio 11.1 (8-20); Calcium 7.8 mg/dL (8.6-10.3); EGFR African American 24.1 (>60); EGFR Non-African American 19.9 (>60); Potassium 5.4 mmol/L (3.5-5.0)
[2019-03-09] MEDS ORDERED: Hydrochlorothiazide TAB* 25 MG PO SCH (09:00)
[2019-03-09] MEDS: NFT: Mirabegron (NF) 25 MG TAB PO SCH (09:00)
[2019-03-09] MEDS: Patiromer POWDER* 8.4 GM PAK PO SCH (09:00)
[2019-03-09] MEDS: Aspirin EC TAB* 81 MG TAB.EC PO SCH (09:02)
[2019-03-09] MEDS: DARIFENACIN 15 MG PO SCH (09:02)
[2019-03-09] MEDS: Finasteride TAB* 5 MG PO SCH (09:02)
[2019-03-09] MEDS: amLODIPine TAB* 5 MG PO SCH (09:02)
[2019-03-09] MEDS: Atorvastatin* 80 MG TAB PO SCH (09:02)
[2019-03-09] MEDS: Enoxaparin(*) 30 MG/0.3 ML SYR SUBCUT SCH (09:03)
--- NOTE | 2019-03-09 16:16 | PN ---
Subjective Date of Service: 03/09/19 Interval History: Denies any complaints K improved from 7 to 5.4 Objective Active Medications: Acetaminophen (Tylenol Tab*) 650 mg PO Q6H PRN PRN Reason: MILD PAIN or TEMP > 100.4 Amlodipine Besylate (Norvasc Tab*) 10 mg PO DAILY [facility] Last Admin: 03/09/19 09:02 Dose: 10 mg Aspirin (Aspirin Ec Tab*) 81 mg PO DAILY [facility] Last Admin: 03/09/19 09:02 Dose: 81 mg Atorvastatin Calcium (Lipitor*) 80 mg PO DAILY [facility] Last Admin: 03/09/19 09:02 Dose: 80 mg Darifenacin (Enablex (Nf)) 15 mg PO DAILY [facility]; Protocol Last Admin: 03/09/19 09:02 Dose: 15 mg Enoxaparin Sodium (Lovenox(*)) 30 mg SUBCUT DAILY [facility] Last Admin: 03/09/19 09:03 Dose: 30 mg Finasteride (Proscar Tab*) 5 mg PO DAILY [facility] Last Admin: 03/09/19 09:02 Dose: 5 mg Sodium Chloride (Ns 0.9% 1000 Ml) 1,000 mls @ 75 mls/hr IV PER RATE [facility] Mirabegron (Myrbetriq (Nf)) 50 mg PO DAILY [facility] Last Admin: 03/09/19 09:00 Dose: Not Given Patiromer (Veltassa Powder*) 8.4 gm PO DAILY [facility] Last Admin: 03/09/19 09:00 Dose: 8.4 gm Sodium Bicarbonate (Sodium Bicarbonate (Antacid)*) 1,300 mg PO TID [facility] Tizanidine HCl (Zanaflex Tab*) 2 mg PO BID PRN PRN Reason: CRAMPING Vital Signs - 8 hr 03/09/19 11:47 Temperature 99.8 F Pulse Rate 77 Respiratory 20 Rate Blood Pressure 138/55 (mmHg) O2 Sat by Pulse 99 Oximetry Oxygen Devices in Use Now: None Eyes: No Scleral Icterus Ears/Nose/Mouth/Throat: NL Teeth, Lips, Gums Neck: NL Appearance and Movements; NL JVP Respiratory: Symmetrical Chest Expansion and Respiratory Effort Cardiovascular: NL Sounds; No Murmurs; No JVD Extremities: No Edema Neurological: Alert and Oriented x 3 Result Diagrams: 03/08/19 03:37 03/09/19 05:05 Microbiology and Other Data: Microbiology 03/08/19 07:11 Urine Culture - Preliminary Urine Gram Negative Bacilli 03/08/19 12:56 Nasal Screen MRSA (PCR) - Final Nasal Mrsa Not Detected Assess/Plan/Problems-Billing Assessment: - Patient Problems (1) Hyperkalemia Current Visit: Yes Status: Acute Code(s): E87.5 - HYPERKALEMIA SNOMED Code (s): 83334143 Comment: K improved from 7 to 5.4 Continue Valtessa 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 recent nsaid use on bicarb drip and will switch to po bicarb (2) Acute kidney injury superimposed on CKD Current Visit: Yes Status: Acute Code(s): N17.9 - ACUTE KIDNEY FAILURE, UNSPECIFIED; N18.9 - CHRONIC KIDNEY DISEASE, UNSPECIFIED SNOMED Code(s): 73704224 Comment: Improving baseline ckd will continue ivf today ns 75cc/hr follows with dr stephens nephrology (3) Metabolic acidosis Current Visit: Yes Status: Acute Code(s): E87.2 - ACIDOSIS SNOMED Code(s) : 92110160 Comment: type 4 rta sodium bicarbonate 1300 mg tid will stop bicarb drip (4) Hypomagnesemia Current Visit: Yes Status: Acute Code(s): E83.42 - HYPOMAGNESEMIA SNOMED Code(s): 623898040 Comment: check mg in am
[2019-03-09] MEDS: NS 0.9% 1000 ML** 1,000 ML IV SCH (20:50)
[2019-03-09] MEDS: Sodium Bicarbonate (ANTACID)* 650 MG TAB PO SCH (20:51)
[2019-03-10 07:29] LABS: ABS Basophils 0.1 10^3/ul (0-0.2); ABS Eosinophils 0.2 10^3/ul (0-0.6); ABS Lymphocytes 1.2 10^3/ul (1.0-4.8); ABS Monocytes 0.7 10^3/ul (0-0.8); Eosinophil % 3.2 %; Hematocrit 28 % (42-52); Hemoglobin 9.3 g/dL (14.0-18.0); Lymphocyte % 16.8 %; Mean Corpuscular HGB Conc 34 g/dL (31-36); Mean Corpuscular Hemoglobin 30 pg (27-31); Mean Corpuscular Volume 87 fL (80-94); Platelet Count 338 10^3/uL (150-450); Red Blood Count 3.15 10^6 /uL (4.18-5.48); Red Cell Distribution Width 16 % (10-15); White Blood Count 7.2 10^3/uL (3.5-10.8)
[2019-03-10 07:48] LABS: BUN/Creatinine Ratio 11.2 (8-20); Calcium 8.1 mg/dL (8.6-10.3); EGFR African American 27.2 (>60); EGFR Non-African American 22.5 (>60); Magnesium 1.6 mg/dL (1.9-2.7)
[2019-03-10 07:51] LABS: Potassium 5.1 mmol/L (3.5-5.0)
[2019-03-10] MEDS: Atorvastatin* 80 MG TAB PO SCH (09:10)
[2019-03-10] MEDS: DARIFENACIN 15 MG PO SCH (09:10)
[2019-03-10] MEDS: Sodium Bicarbonate (ANTACID)* 650 MG TAB PO SCH ×3 (09:10→21:12)
[2019-03-10] MEDS: Patiromer POWDER* 8.4 GM PAK PO SCH (09:10)
[2019-03-10] MEDS: Finasteride TAB* 5 MG PO SCH (09:10)
[2019-03-10] MEDS: amLODIPine TAB* 5 MG PO SCH (09:10)
[2019-03-10] MEDS: Aspirin EC TAB* 81 MG TAB.EC PO SCH (09:10)
[2019-03-10] MEDS: Enoxaparin(*) 30 MG/0.3 ML SYR SUBCUT SCH (09:12)
[2019-03-10] MEDS: NFT: Mirabegron (NF) 25 MG TAB PO SCH (09:15)
[2019-03-10] MEDS: NS 0.9% 1000 ML** 1,000 ML IV SCH (10:39)
[2019-03-10] MEDS ORDERED: Magnesium Sulfate 2 GM IV* 2 GM/50 ML BAG IVPB ONE (15:28)
--- NOTE | 2019-03-10 15:34 | PN ---
Subjective Date of Service: 03/10/19 Interval History: Improving.More lucid today Objective Active Medications: Acetaminophen (Tylenol Tab*) 650 mg PO Q6H PRN PRN Reason: MILD PAIN or TEMP > 100.4 Amlodipine Besylate (Norvasc Tab*) 10 mg PO DAILY [facility] Last Admin: 03/10/19 09:10 Dose: 10 mg Aspirin (Aspirin Ec Tab*) 81 mg PO DAILY [facility] Last Admin: 03/10/19 09:10 Dose: 81 mg Atorvastatin Calcium (Lipitor*) 80 mg PO DAILY [facility] Last Admin: 03/10/19 09:10 Dose: 80 mg Darifenacin (Enablex (Nf)) 15 mg PO DAILY [facility]; Protocol Last Admin: 03/10/19 09:10 Dose: 15 mg Enoxaparin Sodium (Lovenox(*)) 30 mg SUBCUT DAILY [facility] Last Admin: 03/10/19 09:12 Dose: 30 mg Finasteride (Proscar Tab*) 5 mg PO DAILY [facility] Last Admin: 03/10/19 09:10 Dose: 5 mg Sodium Chloride (Ns 0.9% 1000 Ml) 1,000 mls @ 75 mls/hr IV PER RATE [facility] Last Admin: 03/10/19 10:39 Dose: 75 mls/hr Magnesium Sulfate (Magnesium Sulfate 2 Gm Iv*) 2 gm in 50 mls @ 50 mls/hr IVPB ONCE ONE Stop: 03/10/19 16:27 Mirabegron (Myrbetriq (Nf)) 50 mg PO DAILY [facility] Last Admin: 03/10/19 09:15 Dose: Not Given Patiromer (Veltassa Powder*) 8.4 gm PO DAILY [facility] Last Admin: 03/10/19 09:10 Dose: 8.4 gm Sodium Bicarbonate (Sodium Bicarbonate (Antacid)*) 1,300 mg PO TID [facility] Last Admin: 03/10/19 14:30 Dose: 1,300 mg Tizanidine HCl (Zanaflex Tab*) 2 mg PO BID PRN PRN Reason: CRAMPING Vital Signs - 8 hr 03/10/19 03/10/19 03/10/19 07:56 07:57 12:00 Temperature 98.1 F 97.7 F Pulse Rate 65 74 Respiratory 20 20 18 Rate Blood Pressure 150/65 145/70 (mmHg) O2 Sat by Pulse 99 100 Oximetry 09/19/19 15:21 Temperature 98.0 F Pulse Rate 72 Respiratory 16 Rate Blood Pressure 134/41 (mmHg) O2 Sat by Pulse 97 Oximetry Oxygen Devices in Use Now: None Eyes: No Scleral Icterus Ears/Nose/Mouth/Throat: NL Teeth, Lips, Gums Neck: NL Appearance and Movements; NL JVP Respiratory: Symmetrical Chest Expansion and Respiratory Effort, Clear to Auscultation Cardiovascular: NL Sounds; No Murmurs; No JVD Abdominal: NL Sounds; No Tenderness; No Distention Extremities: No Edema Neurological: Alert and Oriented x 3 Result Diagrams: 03/10/19 06:44 03/10/19 06:44 Microbiology and Other Data: Microbiology 03/08/19 07:11 Urine Culture - Preliminary Urine Gram Negative Bacilli 03/08/19 12:56 Nasal Screen MRSA (PCR) - Final Nasal Mrsa Not Detected Assess/Plan/Problems-Billing Assessment: - Patient Problems (1) Hyperkalemia Current Visit: Yes Status: Acute Code(s): E87.5 - HYPERKALEMIA SNOMED Code (s): 33129345 Comment: K improved from 7 to 5.1 Continue Valtessa 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 recent nsaid use on bicarb drip and switched to po bicarb (2) Acute kidney injury superimposed on CKD Current Visit: Yes Status: Acute Code(s): N17.9 - ACUTE KIDNEY FAILURE, UNSPECIFIED; N18.9 - CHRONIC KIDNEY DISEASE, UNSPECIFIED SNOMED Code(s): 45395854 Comment: Improving baseline ckd will continue ivf today ns 75cc/hr follows with dr stephens nephrology (3) Metabolic acidosis Current Visit: Yes Status: Acute Code(s): E87.2 - ACIDOSIS SNOMED Code(s) : 36004636 Comment: type 4 rta sodium bicarbonate 1300 mg tid will stop bicarb drip (4) Hypomagnesemia Current Visit: Yes Status: Acute Code(s): E83.42 - HYPOMAGNESEMIA SNOMED Code(s): 439039062 Comment: will give 2g mg (5) BPH (benign prostatic hyperplasia) Current Visit: Yes Status: Acute Code(s): N40.0 - BENIGN PROSTATIC HYPERPLASIA WITHOUT LOWER URINRY TRACT SYMP SNOMED Code(s): 997826228 Comment: Enlarged prostate Obstruction can lead to worsening renal failure Pt says he does not have a urologist but is on multiple meds at home Will need urology f/u on discharge
[2019-03-11] MEDS: NS 0.9% 1000 ML** 1,000 ML IV SCH (02:12)
[2019-03-11 03:44] LABS: ABS Basophils 0.1 10^3/ul (0-0.2); ABS Eosinophils 0.2 10^3/ul (0-0.6); ABS Lymphocytes 1.2 10^3/ul (1.0-4.8); ABS Monocytes 0.9 10^3/ul (0-0.8); ABS Neutrophils 6.8 10^3/ul (1.5-7.7); Eosinophil % 2.6 %; Hematocrit 25 % (42-52); Hemoglobin 8.3 g/dL (14.0-18.0); Lymphocyte % 12.9 %; Mean Corpuscular HGB Conc 34 g/dL (31-36); Mean Corpuscular Hemoglobin 30 pg (27-31); Mean Corpuscular Volume 88 fL (80-94); Mean Platelet Volume 6.5 fL (7.4-10.4); Platelet Count 300 10^3/uL (150-450); Red Blood Count 2.81 10^6 /uL (4.18-5.48); Red Cell Distribution Width 16 % (10-15); White Blood Count 9.2 10^3/uL (3.5-10.8)
[2019-03-11 03:52] LABS: Albumin 3.1 g/dL (3.2-5.2); Albumin/Globulin Ratio 1.2 (1-3); BUN/Creatinine Ratio 13.2 (8-20); Calcium 7.7 mg/dL (8.6-10.3); EGFR African American 28.5 (>60); EGFR Non-African American 23.6 (>60); Globulin 2.6 g/dL (2-4); Potassium 4.9 mmol/L (3.5-5.0); Total Bilirubin 0.4 mg/dL (0.2-1.0); Total Protein 5.7 g/dL (6.4-8.9)
[2019-03-11 04:03] LABS: Urine Appearance Turbid; Urine Bacteria 1+ (Absent); Urine Bilirubin Negative (Negative); Urine Blood 1+ (Negative); Urine Color Yellow; Urine Glucose Negative (Negative); Urine Ketones Negative (Negative); Urine Nitrite Negative (Negative); Urine Protein 1+(30 mg/dL) (Negative); Urine Red Blood Cell 3+(>10/hpf) (Absent); Urine Specific Gravity 1.008 (1.010-1.030); Urine Urobilinogen Negative (Negative); Urine White Blood Cell 3+(>20/hpf) (Absent)
[2019-03-11] MEDS: Patiromer POWDER* 8.4 GM PAK PO SCH (09:03)
[2019-03-11] MEDS: DARIFENACIN 15 MG PO SCH (09:04)
[2019-03-11] MEDS: amLODIPine TAB* 5 MG PO SCH (09:05)
[2019-03-11] MEDS: Finasteride TAB* 5 MG PO SCH (09:05)
[2019-03-11] MEDS: Atorvastatin* 80 MG TAB PO SCH (09:05)
[2019-03-11] MEDS: Aspirin EC TAB* 81 MG TAB.EC PO SCH (09:05)
[2019-03-11] MEDS: Enoxaparin(*) 30 MG/0.3 ML SYR SUBCUT SCH (09:08)
[2019-03-11] MEDS: NFT: Mirabegron (NF) 25 MG TAB PO SCH (09:14)
[2019-03-11] MEDS: Sodium Bicarbonate (ANTACID)* 650 MG TAB PO SCH ×3 (09:14→21:57)
[2019-03-11 14:07] LABS: Urine Appearance Cloudy; Urine Bacteria 1+ (Absent); Urine Bilirubin Negative (Negative); Urine Blood 1+ (Negative); Urine Color Yellow; Urine Glucose Negative (Negative); Urine Ketones Negative (Negative); Urine Nitrite Negative (Negative); Urine Protein 1+(30 mg/dL) (Negative); Urine Red Blood Cell 2+(6-10/hpf) (Absent); Urine Specific Gravity 1.009 (1.010-1.030); Urine Squamous Epithelial Cell Present (Absent); Urine Urobilinogen Negative (Negative); Urine White Blood Cell 3+(>20/hpf) (Absent)
--- NOTE | 2019-03-11 15:50 | PN ---
Subjective Date of Service: 03/11/19 Interval History: confused on and off.otherwise doing well.improving k and renal fx Objective Active Medications: Acetaminophen (Tylenol Tab*) 650 mg PO Q6H PRN PRN Reason: MILD PAIN or TEMP > 100.4 Amlodipine Besylate (Norvasc Tab*) 10 mg PO DAILY [facility] Last Admin: 03/11/19 09:05 Dose: 10 mg Aspirin (Aspirin Ec Tab*) 81 mg PO DAILY [facility] Last Admin: 03/11/19 09:05 Dose: 81 mg Atorvastatin Calcium (Lipitor*) 80 mg PO DAILY [facility] Last Admin: 03/11/19 09:05 Dose: 80 mg Darifenacin (Enablex (Nf)) 15 mg PO DAILY [facility]; Protocol Last Admin: 03/11/19 09:04 Dose: 15 mg Enoxaparin Sodium (Lovenox(*)) 30 mg SUBCUT DAILY [facility] Last Admin: 03/11/19 09:08 Dose: 30 mg Finasteride (Proscar Tab*) 5 mg PO DAILY [facility] Last Admin: 03/11/19 09:05 Dose: 5 mg Ceftriaxone Sodium 1 gm/ (Sodium Chloride) 50 mls @ 100 mls/hr IVPB Q24H [facility] Mirabegron (Myrbetriq (Nf)) 50 mg PO DAILY [facility] Last Admin: 03/11/19 09:14 Dose: Not Given Patiromer (Veltassa Powder*) 8.4 gm PO DAILY [facility] Last Admin: 03/11/19 09:03 Dose: 8.4 gm Sodium Bicarbonate (Sodium Bicarbonate (Antacid)*) 1,300 mg PO TID [facility] Last Admin: 03/11/19 13:13 Dose: 1,300 mg Tizanidine HCl (Zanaflex Tab*) 2 mg PO BID PRN PRN Reason: CRAMPING Vital Signs - 8 hr 03/11/19 03/11/19 08:00 12:00 Temperature 98.9 F 97.8 F Pulse Rate 65 69 Respiratory 20 20 Rate Blood Pressure 139/58 144/64 (mmHg) O2 Sat by Pulse 100 99 Oximetry Oxygen Devices in Use Now: None Eyes: No Scleral Icterus Ears/Nose/Mouth/Throat: NL Teeth, Lips, Gums Neck: NL Appearance and Movements; NL JVP Respiratory: Symmetrical Chest Expansion and Respiratory Effort Cardiovascular: NL Sounds; No Murmurs; No JVD Extremities: No Edema Skin: No Rash or Ulcers Neurological: Alert and Oriented x 3 Result Diagrams: 03/11/19 02:52 03/11/19 02:59 Microbiology and Other Data: Microbiology 03/08/19 07:11 Urine Culture - Preliminary Urine Gram Negative Bacilli 03/08/19 12:56 Nasal Screen MRSA (PCR) - Final Nasal Mrsa Not Detected Assess/Plan/Problems-Billing Assessment: - Patient Problems (1) Hyperkalemia Current Visit: Yes Status: Acute Code(s): E87.5 - HYPERKALEMIA SNOMED Code (s): 71106323 Comment: K improved from 7 to 4.9 Continue Valtessa 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 recent nsaid use on bicarb drip and switched to po bicarb (2) Acute kidney injury superimposed on CKD Current Visit: Yes Status: Acute Code(s): N17.9 - ACUTE KIDNEY FAILURE, UNSPECIFIED; N18.9 - CHRONIC KIDNEY DISEASE, UNSPECIFIED SNOMED Code(s): 12628862 Comment: Improving baseline ckd stop ivf follows with dr stephens nephrology (3) Metabolic acidosis Current Visit: Yes Status: Acute Code(s): E87.2 - ACIDOSIS SNOMED Code(s) : 55633677 Comment: type 4 rta sodium bicarbonate 1300 mg tid off bicarb drip (4) Hypomagnesemia Current Visit: Yes Status: Acute Code(s): E83.42 - HYPOMAGNESEMIA SNOMED Code(s): 293057897 Comment: will give 2g mg (5) BPH (benign prostatic hyperplasia) Current Visit: Yes Status: Acute Code(s): N40.0 - BENIGN PROSTATIC HYPERPLASIA WITHOUT LOWER URINRY TRACT SYMP SNOMED Code(s): 023885998 Comment: Enlarged prostate Obstruction can lead to worsening renal failure Pt says he does not have a urologist but is on multiple meds at home Will need urology f/u on discharge (6) UTI (urinary tract infection) Current Visit: Yes Status: Acute Comment: uti with delirium and confusion will treat with ceftriaxone
[2019-03-11] MEDS ORDERED: cefTRIAXone(*) 1 GM in NS 0.9% 50 ML* 50 ML IVPB SCH (16:00)
[2019-03-12 07:30] LABS: ABS Basophils 0.1 10^3/ul (0-0.2); ABS Eosinophils 0.2 10^3/ul (0-0.6); ABS Lymphocytes 0.9 10^3/ul (1.0-4.8); ABS Monocytes 0.7 10^3/ul (0-0.8); ABS Neutrophils 6.3 10^3/ul (1.5-7.7); Eosinophil % 2.5 %; Hematocrit 25 % (42-52); Hemoglobin 8.6 g/dL (14.0-18.0); Lymphocyte % 11.5 %; Mean Corpuscular HGB Conc 35 g/dL (31-36); Mean Corpuscular Hemoglobin 30 pg (27-31); Mean Corpuscular Volume 88 fL (80-94); Mean Platelet Volume 6.9 fL (7.4-10.4); Platelet Count 310 10^3/uL (150-450); Red Blood Count 2.85 10^6 /uL (4.18-5.48); Red Cell Distribution Width 16 % (10-15); White Blood Count 8.2 10^3/uL (3.5-10.8)
[2019-03-12 07:46] LABS: BUN/Creatinine Ratio 16.1 (8-20); EGFR African American 31.7 (>60); EGFR Non-African American 26.2 (>60); Potassium 4.7 mmol/L (3.5-5.0)
[2019-03-12] MEDS: amLODIPine TAB* 5 MG PO SCH (10:17)
[2019-03-12] MEDS: Sodium Bicarbonate (ANTACID)* 650 MG TAB PO SCH ×3 (10:17→21:38)
[2019-03-12] MEDS: Atorvastatin* 80 MG TAB PO SCH (10:17)
[2019-03-12] MEDS: Aspirin EC TAB* 81 MG TAB.EC PO SCH (10:17)
[2019-03-12] MEDS: Finasteride TAB* 5 MG PO SCH (10:18)
[2019-03-12] MEDS: DARIFENACIN 15 MG PO SCH (10:19)
[2019-03-12] MEDS: Patiromer POWDER* 8.4 GM PAK PO SCH (10:21)
[2019-03-12] MEDS: Enoxaparin(*) 30 MG/0.3 ML SYR SUBCUT SCH (10:24)
[2019-03-12] MEDS: NFT: Mirabegron (NF) 25 MG TAB PO SCH (10:26)
[2019-03-12] MEDS: Cefepime 1 GM in Dextrose(*) 1 GM/50 ML BAG IV SCH (13:13)
--- NOTE | 2019-03-12 13:36 | PN ---
Subjective Date of Service: 03/12/19 Interval History: Reports confusion is a little better Objective Active Medications: Acetaminophen (Tylenol Tab*) 650 mg PO Q6H PRN PRN Reason: MILD PAIN or TEMP > 100.4 Amlodipine Besylate (Norvasc Tab*) 10 mg PO DAILY [facility] Last Admin: 03/12/19 10:17 Dose: 10 mg Aspirin (Aspirin Ec Tab*) 81 mg PO DAILY [facility] Last Admin: 03/12/19 10:17 Dose: 81 mg Atorvastatin Calcium (Lipitor*) 80 mg PO DAILY [facility] Last Admin: 03/12/19 10:17 Dose: 80 mg Darifenacin (Enablex (Nf)) 15 mg PO DAILY [facility]; Protocol Last Admin: 03/12/19 10:19 Dose: 15 mg Enoxaparin Sodium (Lovenox(*)) 30 mg SUBCUT DAILY [facility] Last Admin: 03/12/19 10:24 Dose: 30 mg Finasteride (Proscar Tab*) 5 mg PO DAILY [facility] Last Admin: 03/12/19 10:18 Dose: 5 mg Cefepime HCl (Maxipime 1 Gm In Dextrose Duplex (*)) 1 gm in 50 mls @ 100 mls/ hr IV Q12H [facility] Last Admin: 03/12/19 13:13 Dose: 100 mls/hr Mirabegron (Myrbetriq (Nf)) 50 mg PO DAILY [facility] Last Admin: 03/12/19 10:26 Dose: Not Given Patiromer (Veltassa Powder*) 8.4 gm PO DAILY [facility] Last Admin: 03/12/19 10:21 Dose: 8.4 gm Sodium Bicarbonate (Sodium Bicarbonate (Antacid)*) 1,300 mg PO TID [facility] Last Admin: 03/12/19 10:17 Dose: 1,300 mg Tizanidine HCl (Zanaflex Tab*) 2 mg PO BID PRN PRN Reason: CRAMPING Vital Signs - 8 hr 03/12/19 08:00 Respiratory 20 Rate Oxygen Devices in Use Now: None Eyes: No Scleral Icterus Ears/Nose/Mouth/Throat: NL Teeth, Lips, Gums Neck: NL Appearance and Movements; NL JVP Respiratory: Symmetrical Chest Expansion and Respiratory Effort, Clear to Auscultation Cardiovascular: NL Sounds; No Murmurs; No JVD, RRR Abdominal: NL Sounds; No Tenderness; No Distention Extremities: No Edema Skin: No Rash or Ulcers Neurological: Alert and Oriented x 3 Result Diagrams: 03/12/19 07:14 03/12/19 07:14 Microbiology and Other Data: Microbiology 03/08/19 07:11 Urine Culture - Preliminary Urine Gram Negative Bacilli 03/08/19 12:56 Nasal Screen MRSA (PCR) - Final Nasal Mrsa Not Detected Assess/Plan/Problems-Billing Assessment: - Patient Problems (1) Hyperkalemia Current Visit: Yes Status: Acute Code(s): E87.5 - HYPERKALEMIA SNOMED Code (s): 56929420 Comment: K improved from 7 to 4.7 Continue Valtessa Likely from acute on chronic renal failure and type 4 RTA ? recent nsaid use on bicarb drip and switched to po bicarb He has been on Veltassa everyday here. Can decide if he should be on Veltessa everyday or every other day on discharge based on K trends next couple of days now that his kidney fx has improved to baseline (2) Acute kidney injury superimposed on CKD Current Visit: Yes Status: Acute Code(s): N17.9 - ACUTE KIDNEY FAILURE, UNSPECIFIED; N18.9 - CHRONIC KIDNEY DISEASE, UNSPECIFIED SNOMED Code(s): 22938271 Comment: Improving baseline ckd follows with dr stephens nephrology Prerenal and UTI Needs nephrology follow up for labs and visit in 1-2 weeks post discharge with Dr Stephens Will benefit from Urology f/u as an outpt. Sig BPH, thickened bladder wall on prior CT.No bladder mass on ultrasound.Follows with Dr Grimes and needs f/u on discharge with Katarina Fuentes a w/u to determine etilogy.24h urine for protein/cr, spep,upep,kappa lambda light chains, DANIELE in progress. F/u workup and f/u with Dr Stephens (3) Metabolic acidosis Current Visit: Yes Status: Acute Code(s): E87.2 - ACIDOSIS SNOMED Code(s) : 16713364 Comment: type 4 rta sodium bicarbonate 1300 mg tid off bicarb drip continue on discharge (4) Hypomagnesemia Current Visit: Yes Status: Acute Code(s): E83.42 - HYPOMAGNESEMIA SNOMED Code(s): 765715279 Comment: replaced (5) BPH (benign prostatic hyperplasia) Current Visit: Yes Status: Acute Code(s): N40.0 - BENIGN PROSTATIC HYPERPLASIA WITHOUT LOWER URINRY TRACT SYMP SNOMED Code(s): 263824803 Comment: Enlarged prostate See above Will need urology f/u on discharge (6) UTI (urinary tract infection) Current Visit: Yes Status: Acute Comment: uti with delirium and confusion Renal fx was getting better and K but pt sig confused.Is delirious and is good at one time and does not know where he is the next.Checked for UTI and noted to be growing Enterobacter.Started on Ceftriaxone yesterday but resistant to ceftriaxone. Will switch to Cefepime Lives alone and I worry that he would not take his antibiotic at home if he is confused In light of this, will keep in hospital till confusion clears in 1-2 days and consider d/c on Thursday or Thursday. Pt agreeable to this
[2019-03-12 13:51] LABS: Urine Creatinine Concentration 46.44 mg/dL
[2019-03-12 14:00] LABS: Urine TP Concentration 83 mg/dL
[2019-03-12 15:14] LABS: Kappa Free Light Chain 11.4 mg/dL; Lambda Free Light Chain 4.08 mg/dL
[2019-03-13] MEDS: Cefepime 1 GM in Dextrose(*) 1 GM/50 ML BAG IV SCH ×2 (00:19→12:04)
[2019-03-13 07:01] LABS: ABS Basophils 0.1 10^3/ul (0-0.2); ABS Eosinophils 0.2 10^3/ul (0-0.6); ABS Lymphocytes 1.1 10^3/ul (1.0-4.8); ABS Monocytes 0.6 10^3/ul (0-0.8); ABS Neutrophils 4.3 10^3/ul (1.5-7.7); Eosinophil % 2.9 %; Hematocrit 24 % (42-52); Hemoglobin 8.5 g/dL (14.0-18.0); Lymphocyte % 16.9 %; Mean Corpuscular HGB Conc 36 g/dL (31-36); Mean Corpuscular Hemoglobin 31 pg (27-31); Mean Corpuscular Volume 87 fL (80-94); Mean Platelet Volume 7.4 fL (7.4-10.4); Platelet Count 286 10^3/uL (150-450); Red Blood Count 2.75 10^6 /uL (4.18-5.48); Red Cell Distribution Width 16 % (10-15); White Blood Count 6.2 10^3/uL (3.5-10.8)
[2019-03-13 07:15] LABS: BUN/Creatinine Ratio 17.6 (8-20); Calcium 7.9 mg/dL (8.6-10.3); EGFR African American 29.1 (>60); Potassium 4.8 mmol/L (3.5-5.0)
[2019-03-13] MEDS: Aspirin EC TAB* 81 MG TAB.EC PO SCH (08:46)
[2019-03-13] MEDS: DARIFENACIN 15 MG PO SCH (08:46)
[2019-03-13] MEDS: Atorvastatin* 80 MG TAB PO SCH (08:46)
[2019-03-13] MEDS: Sodium Bicarbonate (ANTACID)* 650 MG TAB PO SCH (08:46)
[2019-03-13] MEDS: Patiromer POWDER* 8.4 GM PAK PO SCH (08:47)
[2019-03-13] MEDS: Finasteride TAB* 5 MG PO SCH (08:47)
[2019-03-13] MEDS: amLODIPine TAB* 5 MG PO SCH (08:47)
[2019-03-13] MEDS: NFT: Mirabegron (NF) 25 MG TAB PO SCH (08:50)
[2019-03-13] MEDS: Enoxaparin(*) 30 MG/0.3 ML SYR SUBCUT SCH (10:35)
[2019-03-13 17:34] VITALS: BP 136/58
--- NOTE | 2019-03-14 14:31 | DS ---
CC: Dr. Bolden; Dr. Joan Friend; Dr. Osorio Grimes * DISCHARGE SUMMARY: DATE OF ADMISSION: 03/08/19 DATE OF DISCHARGE: 03/13/19 PRIMARY CARE PROVIDER: Dr. Bolden. MY ATTENDING WHILE IN THE HOSPITAL: Dr. Nuha Post.* (DICTATED BY JAQUAN CASANOVA) OUTPATIENT GRANITE POLISHER APPRENTICE: Dr. Joan Friend. OUTPATIENT UROLOGIST: Dr. Osorio Grimes. PRIMARY DISCHARGE DIAGNOSES: 1. Acute kidney injury, now resolved. 2. Hyperkalemia, potassium initially of 7. 3. Urinary tract infection due to resistant Enterobacter cloacae. SECONDARY DISCHARGE DIAGNOSES: 1. Chronic kidney disease. 2. Coronary artery disease, status post CABG. 3. Hypertension. 4. Hyperlipidemia. 5. Chronic obstructive pulmonary disease. 6. History of transient ischemic attack. 7. Anemia. STUDIES DONE WHILE IN THE HOSPITAL: Bladder ultrasound on 03/11/19 read as large prostate projecting into the bladder base, similar prior study, measuring 20 cc in volume, no hydronephrosis, postvoid residual of [address] read as there has been no change from 08/27/18, no interval intracranial process identified. Minimal chronic ischemic white matter change and mild atrophy. MEDICATIONS AT DISCHARGE: 1. Atorvastatin 80 mg p.o. daily. 2. Darifenacin 15 mg p.o. daily. 3. Tizanidine 2 mg p.o. b.i.d. as needed. 4. Mirabegron 50 mg p.o. daily. 5. Amlodipine 10 mg p.o. daily. 6. Finasteride 5 mg p.o. daily. 7. Magnesium oxide 250 mg p.o. daily. 8. Aspirin 81 mg p.o. daily. 9. Tylenol 650 mg p.o. q.6 hours as needed. 10. Patiromer 8.4 g daily. 11. Sodium bicarbonate 1300 mg p.o. t.i.d. 12. Doxycycline 100 mg p.o. b.i.d. x13. 13. Tamsulosin 0.4 mg p.o. daily. Medications discontinued at discharge: 1. Hydrochlorothiazide 12.5 mg p.o. daily. 2. Patiromer 8.4 g p.o. every other day. New medications at discharge: 1. Tylenol. 2. Patiromer. 3. Sodium bicarbonate. 4. Doxycycline. 5. Tamsulosin. HOSPITAL COURSE: This is a brief summary of the patient's presentation. For more details, please see the history and physical from Dr. Florencia Solis on . In brief, the patient is a 78-year-old male with past medical history significant for the above, who was recently admitted to this hospital twice within the past 2 months, both times acute on chronic renal failure and hyperkalemia. The patient most recently was treated as well for a urinary tract infection related to Enterobacter cloacae, which at that time was noted to be susceptible to third generation cephalosporins. The patient had urinary frequency and feeling of incomplete emptying before coming to the hospital and had routine lab work through his outpatient road cleaner, which showed a potassium of 7.0 and he was instructed to come to the emergency department. The patient was admitted to the hospital, started on ceftriaxone again for presumed urinary tract infection, seen in consultation by Dr. 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 The patient was started on buffering. He was given fluids. He was also taking NSAIDs before his admission. These were stopped. His creatinine improved with fluids and buffering. The patient was started on patiromer daily and his potassium declined from a high of 7 down to 4.8 on day of discharge. The patient continued to complain of hesitancy with urination. The patient states he was seen by his urologist soon before his admission and there were no medication changes at that time. The patient's urine culture grew Enterobacter cloacae, which at this point was resistant to ceftriaxone. The patient was switched to cefepime on 03/11/19. The patient had a repeat urine culture, which showed the same Enterobacter cloacae complex of again in high numbers. The patient initially had white blood cell count, which declined to normal. The patient's carbon dioxide level improved slightly during his hospitalization with sodium bicarbonate. The patient had some altered mental status during his hospitalization, which improved by the day of his discharge. The patient was stable enough for discharge on 03/13/19. PHYSICAL EXAM ON THE DAY OF DISCHARGE: General: The patient is a 78-year-old male, who appears stated age and sitting comfortably in the bed, in no acute distress. Vital Signs: At the time of discharge, temperature 98.0, pulse rate 65, respiratory rate 20, oxygen saturation 98% on room air, blood pressure 136/ 58. HEENT: Head: Normocephalic, atraumatic. Sclerae anicteric. No conjunctival injection. Nasal mucosa moist. Oral mucosa moist. No pharyngeal erythema, discharge, or exudate. Neck: Supple, nontender. No lymphadenopathy. No carotid bruits auscultated. No JVD. Cardiac: Regular rate and rhythm. No clicks, murmurs, gallops, or rubs. Pulses are 2+ in the bilateral dorsalis pedis, posterior tibialis, and radial areas. Respiratory: Clear to auscultation bilaterally. No wheezes, rales, or rhonchi. Good air exchange bilaterally. Abdomen: Soft, nontender, nondistended. Bowel sounds present and normoactive in all 4 quadrants. No hepatosplenomegaly. No abdominal bruits auscultated. No hepatojugular reflux. Genitourinary: No suprapubic or CVA tenderness. Skin: Clean, dry, and intact. No rash. Neuro: Cranial nerves II through XII intact. No focal deficits. Alert and oriented x3. Psychiatric: Pleasant and cooperative. DISCHARGE PLAN BY PROBLEM: 1. Acute kidney injury, hyperkalemia. The patient's renal function has improved at this time. The patient should avoid NSAIDs, GEOFF inhibitors. The patient has been instructed to have a low potassium diet, which he states he has been adhering to at home. The patient has been started on tamsulosin, as there was some concern that he is retaining urine. The patient is on darifenacin and mirabegron for overactive bladder. These may be contributing to the patient's possible retention, but he was disinclined to stop them without first consulting his urologist. The patient should have close followup with his urologist, Dr. Osorio Grimes, as well as with his road cleaner, Dr. Friedn. The patient's creatinine has at this point returned to his baseline. The patient's potassium is within normal range. The patient will be continued on patiromer daily and has close followup with his primary care provider within 1 week of a repeat BMP at that time and followup with his road cleaner within 1 month. Continue the patient's sodium bicarbonate 1300 mg p.o. t.i.d., but decrease for buffering his acidosis and his hyperkalemia. 2. Urinary tract infection. The patient has urinary tract infection caused by Enterobacter cloacae, which is at this point recurrent. The patient is improving on cefepime to which it is resistant; however, due to concern for inducible cephalosporin resistance, we will switch the patient to doxycycline to which bacterium is susceptible to complete a 7 day course of correct antibiotic treatment starting on the 03/11/19. The patient's bacterium is also susceptible to Levaquin and Bactrim, though given the patient's renal function and hyperkalemia, these were not deemed to be good choices. 3. Coronary artery disease. The patient had no signs of acute coronary syndrome while in the hospital. 4. Hypertension. Continue the patient's amlodipine. The patient is currently normotensive. We held patient's hydrochlorothiazide due to dehydration on admission. This may be resumed at the discretion of his primary care provider or his road cleaner. 5. History of TIA. Continue his statin and aspirin as above. 6. COPD. The patient is on no medications. The patient does not have exacerbation. 7. BPH. Continue tamsulosin as above. 8. Hyperlipidemia. Continue Lipitor. CONDITION: Stable. DISPOSITION: Home. TIME SPENT: Approximately 60 minutes was spent on the discharge of this patient , 30 of which was spent [id number] with the patient obtaining history and physical and discussing treatment plan. JAQUAN CASANOVA [id number]/SANDRINE #: [id number] IGNACIO
[2019-03-16 15:11] LABS: Albumin 2.8 g/dL (3.4-4.7); Albumin/Globulin Ratio 1.05; Gamma Globulin 0.9 g/dL (0.6-1.6); Total Protein(PEP) 5.4 g/dL (6.3 - 7.9)
[2019-03-17 13:00] LABS: Albumin 52 %; Gamma Globulin 11 %; Total Protein(PEP) Urine 57 mg/dL
== END 2019-03-13 12:00 | disposition home or self-care (01) | DRG 425 ==
LOC: ED 01:53 → MEDTELE 09:18 → OBSVTOIN 10:00
PROVIDERS: ADMIT Internal Medicine; ATTEND Internal Medicine
DX: E87.5 Hyperkalemia (principal); N17.9 Acute kidney failure, unspecified; N18.5 Chronic kidney disease, stage 5; I12.0 Hypertensive chronic kidney disease with stage 5 chronic kidney disease or end stage renal disease; N39.0 Urinary tract infection, site not specified; E87.2 Acidosis; E11.22 Type 2 diabetes mellitus with diabetic chronic kidney disease; J44.9 Chronic obstructive pulmonary disease, unspecified; N25.89 Other disorders resulting from impaired renal tubular function; E83.42 Hypomagnesemia; D63.1 Anemia in chronic kidney disease; B96.89 Other specified bacterial agents as the cause of diseases classified elsewhere; I25.10 Atherosclerotic heart disease of native coronary artery without angina pectoris; N32.89 Other specified disorders of bladder; E78.5 Hyperlipidemia, unspecified; N32.81 Overactive bladder; N40.0 Benign prostatic hyperplasia without lower urinary tract symptoms; F17.290 Nicotine dependence, other tobacco product, uncomplicated; F10.21 Alcohol dependence, in remission; Z16.39 Resistance to other specified antimicrobial drug; Z95.2 Presence of prosthetic heart valve; Z95.1 Presence of aortocoronary bypass graft; Z86.73 Personal history of transient ischemic attack (TIA), and cerebral infarction without residual deficits; Z79.82 Long term (current) use of aspirin; Z79.899 Other long term (current) drug therapy; Z88.8 Allergy status to other drugs, medicaments and biological substances; Z81.1 Family history of alcohol abuse and dependence; Z82.5 Family history of asthma and other chronic lower respiratory diseases
CPT/HCPCS: 36415; 70450; 76770; 80048; 80053; 81003; 81015; 82140; 82570; 83735; 83883; 84155; 84156; 84165; 84166; 85025; 86038; 86334; 86335; 87077; 87086; 87186; 87641; 93005; 99285; A9270-GY; G8978-GP-CH; G8979-GP-CH; G8980-GP-CH; J0610; J0692; J0696; J1200; J1650; J3475

== ENCOUNTER 2019-06-04 11:21 | Emergency (ER) | payer BC ==
--- OUTSIDE RECORDS SUMMARY | 2019-06-04 11:26 | XMS REPORT | Summary of Care ---
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 Reason for Visit Reason Comments Follow Up would like to file for disability Finger Pain swollen painfull been treated and still persists Urinary Frequency also incontence Encounter Details Date Type Department Care Team Description 04/27/2019 Office Visit Krishna Bolden, Type 2 diabetes mellitus with stage 4 chronic kidney disease, with long-term current use of insulin ([facility] ) (Primary Dx); Practice Romina Kaur MD Pain of finger of right hand; [address] [facility] Gout of right hand, unspecified cause, unspecified chronicity; [address] [address] Essential hypertension, benign; [phone] Type 2 diabetes mellitus with stage 4 chronic kidney disease, without long- term current use of insulin ([facility]) Allergies Active Allergy Reactions Severity Noted Date Comments Diego Inhibitors Other 12/09/2017 Elevated potassium CKD Keflex GI Reaction 07/24/2011 Lisinopril Other 02/14/2019 Very high potassium Losartan Other 12/09/2017 Elevated potassium, chronic kidney disease Nsaids Other 04/13/2018 CKD documented as of this encounter (statuses as of 04/27/2019) Medications Medication Sig Dispensed Refills Start Date [...] obstructive pulmonary (wheezing). disease, unspecified COPD type (HCC) FREESTYLE INSULINX TEST USE DIRECTED 100 Each [...] TabIndications: COPD OTHER DAY. with acute bronchitis (HCC) Tiotropium Take 2 INHL by 1 Inhaler 5 08/26/2018 Active [place]-Olodaterol inhalation (STIOLTO RESPIMAT) DAILY. 2.5-2.5 MCG/ACT Inhalation Aero Soln atorvastatin (LIPITOR) 80 TAKE ONE TABLET 30 Tab 5 10/25/2018 Active MG Oral TabIndications: BY MOUTH ONCE Mixed hyperlipidemia DAILY finasteride (PROSCAR) 5 TAKE ONE TABLET 90 [...] SR 24 BY MOUTH ONCE HR DAILY sodium bicarbonate 650 MG Take 1,300 mg by 0 Active Oral Tab mouth THREE TIMES DAILY. Tizanidine 2 MG Oral Take 2 mg by 30 Tab 5 03/19/2019 Active TabIndications: Muscle mouth EVERY spasm BEDTIME NEEDED (muscle cramps). Tamsulosin HCl (FLOMAX) Take 0.4 mg by 0 Active 0.4 MG Oral Cap mouth DAILY. fluticasone (FLONASE [place] 2 Sprays 1 Bottle 3 03/28/2019 Active ALLERGY RELIEF) 50 in nose DAILY. MCG/ACT Nasal SuspensionIndications: Allergic rhinitis, unspecified seasonality, unspecified trigger Mirabegron ER 50 MG Oral Take 50 mg by 30 Tab 3 04/02/2019 Active TABLET SR 24 HR mouth DAILY. Colchicine 0.6 MG Oral Take 0.6 mg by 30 Cap 0 04/27/2019 Active CapIndications: Gout of mouth DAILY. right hand, unspecified cause, unspecified chronicity documented as of this encounter (statuses as of 04/27/2019) Active Problems Problem Noted Date Type 2 diabetes mellitus with stage 4 chronic kidney disease, without 2018 long-term current use of insulin Trochanteric bursitis of both hips 09/17/2017 Hip pain, bilateral 08/07/2017 Coronary artery disease involving [place] coronary artery of [place] heart 01/15 without angina pectoris Type 2 diabetes mellitus with stage 4 chronic kidney disease 01/16/2016 Gross hematuria 08/03/2015 Elevated prostate specific antigen (PSA) 08/03/2015 CAD (coronary artery disease) 11/07/2014 Overview: CABG September 2014 Hx of CABG 06/22/2014 Overview: Dr.Lynn Bell is his cadd operator Obesity, unspecified 06/10/2012 Overview: BMI 31 This [...] CABG September 2014, Dr. Catrachito Casas at [facility] in [place] S/P AVR (aortic valve replacement) HTN (hypertension) Gout Sleep apnea Overview: never followed up on sleep study, agrees to set this up today 01/16/16 documented as of this encounter (statuses as of 04/27/2019) Resolved Problems Problem Noted Date Resolved Date Septicemia due to Enterobacter species 11/13/2017 07/01/2018 Type 2 diabetes mellitus with stage 4 chronic kidney 09/11/2016 03/12/2018 disease, with long-term current use of insulin Hyperkalemia 10/31/2011 07/31/2017 Overview: Due to renal disease Potassium Level 5.8-6 2011 Diabetes mellitus 03/12/2018 documented as of this encounter (statuses as of 04/27/2019) Immunizations Name Administration Dates Next Due Depo Medrol (40mg) 07/20/2015 Influenza (IM) Preservative Free 06/06/2013, 04/12/2012 Influenza Vaccine 65 Yrs + 03/28/2019 Influenza Vaccine High Dose 05/04/2018, 03/24/2017, 04/07/2016, [...] Sign Reading Time Taken Comments Blood Pressure 110/68 04/27/2019 3:40 PM EST Pulse 63 04/27/2019 3:40 PM EST Temperature 37.2 04/27/2019 3:40 PM EST C (98.9 F) Respiratory Rate - - Oxygen Saturation 98% 04/27/2019 3:40 PM EST Inhaled Oxygen Concentration - - Weight 70.5 kg (155 lb 6.4 oz) 04/27/2019 3:40 PM EST Height 170.2 cm (5' 7") 04/27/2019 3:40 PM EST Body Mass Index 24.34 04/27/2019 3:40 PM EST documented in this encounter Patient Instructions Patient InstructionsRomina Bolden MD - 04/27/2019 3:00 PM ROBIN ordered laboratory tests today and will send you results I refilled your colchine. Follow up with Dr Mack for your finger swelling. Follow in another office visit to discuss your other issues. documented in this encounter Progress Notes Romina Bolden MD - 04/27/2019 3:00 PM EST There are no exam notes on file for this visit. Chief Complaint: Kamar Segura is a 78-y.o. male who presents for gout of his hand He as since followed up with orthopedics. History of Present Illness/ROS: Patient has a painful right index finger He has seen Dr Mack and was given colchicine, needs a refill. He was also given an antibiotic, now completed: doxycycline ER report reviewed: Xray shows soft tissue swelling, no osteomyelitis, but has chronic subchondral cystic change proximally He is back at work He reports he is out of leave/sick time. He plans to retire. Given this he asked about disability detention again I declined as we did this in the past several times and he changed his mind. He also came 30 minutes after his appointment time, no not time to discuss disability today Review of Systems - General ROS: negative for - chills or fever Respiratory ROS: no cough, shortness of breath, or wheezing Cardiovascular ROS: no chest pain or dyspnea on exertion Lab Results Component Value Date GLYCO 5.5 03/16/2019 GLYCO 5.8 (H) 01/03/2019 GLYCO 5.5 08/11/2018 Lab Results Component Value Date NA 139 03/16/2019 K 4.5 03/16/2019 CL 109 (H) 03/16/2019 CO2 20 (L) 03/16/2019 GLUCOSE 131 (H) 03/16/2019 BUN 46 (H) 03/16/2019 CREATININE 2.4 (H) 03/16/2019 CALCIUM 8.7 03/16/2019 TP 7.0 01/03/2019 ALBUMIN 4.0 01/03/2019 AST 44 01/03/2019 ALT 31 01/03/2019 ALK 77 01/03/2019 TBILI 0.6 01/03/2019 EGFR 32 03/16/2019 Lab Results Component Value Date WBC 9.49 (H) 03/07/2019 HGB 10.3 (L) 03/07/2019 HCT 33.5 (L) 03/07/2019 PLAT 405 (H) 03/07/2019 XR FOOT MIN 3 VIEWS LEFT (STANDARD) Narrative: Procedure(s): XR FOOT MIN 3 VIEWS LEFT (STANDARD) Date of service: 04/04/2019 8:43 AM Provided clinical information: 78 years, Male, "L foot lump" Additional History: Nodule of skin of left foot. Swelling over top of metatarsals. Procedure and materials: Standard protocol. TECHNIQUE: 3 views of the left foot performed. Comparison studies: MRI left foot 03/01/2014. Observations: See impression. Impression: Left foot: 1. Soft tissue swelling at the dorsum of the foot most pronounced at the MTP region. 2. Negative for acute fracture or dislocation. 3. Degenerative change first MTP joint with mild to moderate joint space narrowing and somewhat prominent subchondral cystic change at the metatarsal head with some mild articular surface undulation. Enthesopathic change with calcification adjacent to base of proximal phalanx medially/plantar medially. 4. Enthesopathic changes at dorsal tarsal region and medial malleolus. Small ossification distal Achilles tendon with adjacent mild calcaneal spurring. Urgency: IMPORTANT. This report contains IMPORTANT results which require clinical attention. Recommendation: No specific imaging recommendation. Signed by Adi Rooney on 04/09/2019 9:11 AM Past Medical History: Diagnosis Date Aortic stenosis [...] of CABG 2014 Dr.Lynn Bell is his cadd operator S/P AVR (aortic valve replacement) Sleep apnea never followed up on sleep study, agrees to set this up today 01/16/16 VHD (valvular heart disease) 2015 aortic valve replacement, equine Past Surgical History: Procedure Laterality Date CARDIAC CATH 03/26/12 [place] RPLCMT AORTIC VALVE OPN ALLOGRAFT VALVE FREEHAND 10/04/2014 Porcine valve, Dr. Walsh, [facility] Current Outpatient Medications: albuterol HFA (VENTOLIN) 108 [...] DAILY. Left eye, Disp: , Rfl: 0 Colchicine 0.6 MG Oral Cap, Take 0.6 mg by mouth DAILY., Disp: 30 Cap, Rfl: 0 Cyanocobalamin (VITAMIN B-12) 1000 MCG [...] ONCE DAILY , Disp: 90 Tab, Rfl:1 fluticasone (FLONASE ALLERGY RELIEF) 50 MCG/ACT Nasal Suspension, [place] 2 Sprays in nose DAILY., Disp: 1 Bottle, Rfl: 3 FREESTYLE INSULINX TEST In Vitro Strip, USE [...] Take 50 mg by mouth DAILY., Disp: 30 Tab, Rfl: 3 patiromer (VELTASSA) 8.4 g Oral Pack, Take 8.4 g by mouth DAILY NEEDED (hyperkalemia)., Disp: , Rfl: Polyethylene Glycol 3350 (MIRALAX PO), Take 17 g by mouth DAILY NEEDED (constipation)., Disp: , Rfl: Polyvinyl Alcohol-Povidone (REFRESH OP), Place to the external eye., Disp: , Rfl: sodium bicarbonate 650 MG Oral Tab, Take 1,300 mg by mouth THREE TIMES DAILY., Disp: , Rfl: Tamsulosin HCl (FLOMAX) 0.4 MG Oral Cap, Take 0.4 mg by mouth DAILY., Disp: , Rfl: tiotropium (SPIRIVA HANDIHALER) 18 MCG Inhalation Cap, Take 18 mcg by inhalation DAILY., Disp: , Rfl: Tiotropium [place]-Olodaterol (STIOLTO RESPIMAT) 2.5-2.5 MCG/ACT Inhalation Aero Soln, [...] Last attempt to quit: 06/22/2017 Years since quittin.8 Smokeless tobacco: Never Used Substance and Sexual Activity Alcohol use: No Drug use: No Sexual activity: Yes Partners: Female Lifestyle Physical activity: Days per week: Not on file Minutes per session: Not on file Stress: Not on file Relationships Social connections: Talks on phone: Not on file Gets together: Not on file Attends islam service: Not on file Active member of [...] Concern Yes Social History Narrative Lives in [facility],works at [email or web address]- 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 No family history on file. PHYSICAL EXAMINATION: BP 110/68 (BP Location: Right arm, Patient Position: Sitting) | Pulse 63 | Temp 98.9 F (37.2 C) | Ht 5' 7" (1.702 m) | Wt 155 lb 6.4 oz (70.5 kg ) | SpO2 98% | BMI 24.34 kg/m Physical Examination: General appearance - alert, well appearing, and in no distress Mental status - alert, oriented to person, place, and time, normal mood, behavior, speech, dress, motor activity, and thought processes Eyes - pupils equal sclera anicteric Neck - supple, no cervical or supraclavicular [...] no pedal edema, no clubbing or cyanosis Right index finger PIP joint is swollen, tender but not hot or red. ASSESSMENT/PLAN: ICD-9-CM ICD-10-CM 1. Type 2 diabetes mellitus with stage 4 chronic kidney disease, with long-term current use of insulin (HCC) 250.40 E11.22 MICROALBUMIN, RANDOM URINE W/ CREATININE 585.4 N18.4 MICROALBUMIN, RANDOM URINE W/ CREATININE V58.67 Z79.4 BASIC METABOLIC PANEL 2. Pain of finger of right hand 729.5 M79.644 CBC WITH DIFFERENTIAL ANTI NUCLEAR ANTIBODY RHEUMATOID FACTOR SEDIMENTATION RATE 3. Gout of right hand, unspecified cause, unspecified chronicity 274.00 M10.9 Colchicine 0.6 MG OralCap URIC ACID 4. Essential hypertension, benign 401.1 I10 5. Type 2 diabetes mellitus with stage 4 chronic kidney disease, without long- term current use of insulin (HCC) 250.40 E11.22 BASIC METABOLIC PANEL 585.4 N18.4 colchicine refilled He stopped allopurinol in the past at his request. Laboratory tests ordered Follow up 3-4 weeks, sooner prn Follow up with Dr Mack for the finger pain Patient Instructions I ordered laboratory tests today and will send you results I refilled your colchine. Follow up with Dr Mack for your finger swelling. Follow in another office visit to discuss your other issues. Author: Romina Bolden MD 04/27/2019 16:50 documented in this encounter Plan of Treatment Date Type Specialty Care Team Description 04/28/2019 Lab Internal Medicine 05/25/2019 Office Visit [facility] Romina Bolden MD [address] [place] [address] 06/09/2019 Office Visit Pulmonary Jaswinder Calles MD [address] [place] [address] [phone] Name Type Priority Associated Diagnoses Date/Time MICROALBUMIN, RANDOM Lab Routine Type 2 diabetes mellitus 04/27/2019 3:56 PM EST URINE W/ CREATININE with stage 4 chronic kidney disease, with long-term current use of insulin (HCC) Name Type Priority Associated Diagnoses Order Schedule MICROALBUMIN, RANDOM URINE Lab Routine Type 2 diabetes mellitus Expected: 04/27/2019 W/ CREATININE with stage 4 chronic (Approximate), kidney disease, with Expires: 10/24/2019 long-term current use of insulin (HCC) CBC WITH DIFFERENTIAL Lab Routine Pain of finger of right Expected: 2018 hand (Approximate), Expires: 04/27/2020 URIC ACID Lab Routine Gout of right hand, Expected: 04/27/2019 unspecified cause, (Approximate), unspecified chronicity Expires: 04/27/2020 BASIC METABOLIC PANEL Lab Routine Type 2 diabetes mellitus Expected: 2018 with stage 4 chronic (Approximate), kidney disease, with Expires: 04/27/2020 long-term current use of insulin (HCC) Type 2 diabetes mellitus with stage 4 chronic kidney disease, without long-term current use of insulin (HCC) ANTI NUCLEAR ANTIBODY Lab Routine Pain of finger of right Expected: 2018 hand (Approximate), Expires: 04/27/2020 RHEUMATOID FACTOR Lab Routine Pain of finger of right Expected: 04/27/2019 hand (Approximate), Expires: 04/27/2020 SEDIMENTATION RATE Lab Routine Pain of finger of right Expected: 04/27/2019 hand (Approximate), Expires: 04/27/2020 Health Maintenance Due Date Last Done Comments ZOSTER IMMUNIZATION SERIES 1992 (1 of 2) DEPRESSION SCREENING 07/23/2019 07/23/2018 FOOT EXAM 07/23/2019 07/23/2018, 07/23/2018, 07/23/2018, Additional history exists HEMOGLOBIN A1C 09/14/2019 03/16/2019, 01/03/2019, 08/11/2018, Additional history exists Diabetic Eye Exam 09/24/2019 09/23/2018, 04/05/2018, 11/11/2017, Additional history exists LUNG CANCER SCREENING 01/12/2020 01/11/2019, 01/11/2019, 01/05/2019, Additional history exists FALL RISK ASSESSMENT 02/15/2020 02/14/2019, 02/14/2019 HIV SCREENING Completed 10/15/2015 PNEUMOCOCCAL 65+YRS Completed 05/19/2017, 03/06/2014 INFLUENZA VACCINE Completed 03/28/2019, 05/04/2018, 03/24/2017, Additional history exists HPV IMMUNIZATION SERIES Aged Out No longer eligible based on patient's age to complete this topic MENINGOCOCCAL VACCINE IMM Aged Out No longer eligible based on patient's age to complete this topic documented as of this encounter Goals Goal Patient Goal Associated Recent Patient-Stated? Author Type Problems Progress Blood Pressure Blood 110/68 No Yuan, < 140/90 Pressure (04/27/2019 Romina Kaur, 3:40 PM EST) Note: This is an individualized treatment (blood [...] to quit. Glycohemoglobin A1c < 7.0 Diabetes 5.5 (03/16/2019 11:46 No Romina Bolden AM, MD Note: This is an individualized treatment [...] filedocumented in this encounter Visit Diagnoses Diagnosis Type 2 diabetes mellitus with stage 4 chronic kidney disease, with long-term current use of insulin (HCC) - Primary Pain of finger of right hand Pain in limb Gout of right hand, unspecified cause, unspecified chronicity Essential hypertension, benign Type 2 diabetes mellitus with stage 4 chronic kidney disease, without long-term current use of insulin (HCC) documented in this encounter Insurance Payer Benefit Plan / Subscriber ID Effective Dates Phone Address Type Group LARA MOOREBS xxxxxxxxxxxx 2016-Present [employer] ([place]) [place] [address] documented as of this encounter
--- OUTSIDE RECORDS SUMMARY | 2019-06-04 11:26 | XMS REPORT | Continuity of Care Document ---
:1940 External Reference #:[id number] Author Name JASMEET Sepulveda (transmitted by agent of provider aDphne Muhammad) Address [address] [place] [id number] Care Team Providers Name Role Phone Mikaela Torres MD - Care Team Information It Security Architect [phone] Endocrinology, Diabetes & Metabolism Romina Bolden MD - Care Team Information It Security Architect [phone] Family Medicine Problems Active Problems Provider Date Chest pain JAQUAN Montemayor Onset: 09/16/2013 Dyspnea JAQUAN Montemayor Onset: 09/16/2013 Aortic valve disorder JAQUAN Montemayor Onset: 09/16/2013 Transient cerebral ischemia Ambika Bell M.D. Onset: 11/04/2013 Aphasia Ambika Bell M.D. Onset: 11/04/2013 Essential hypertension Luis Enrique Liu M.D., [facility], Onset: 02/08/2014 [facility] Postoperative Wound Closure Encounter Luis Enrique Liu M.D., [facility], Onset: 2013 [facility] Anemia Ambika Bell M.D. Onset: 05/30/2014 Renal failure syndrome Ambika Bell M.D. Onset: 05/30/2014 Type 2 diabetes mellitus Ambika Bell M.D. Onset: 05/30/2014 Coronary arteriosclerosis Ambika Bell M.D. Onset: 05/30/2014 Congestive heart failure Ambika Bell M.D. Onset: 07/28/2014 Heart valve replacement Ambika Bell M.D. Onset: 11/21/2014 Arteriosclerosis of arterial coronary Ambika Bell M.D. Onset: 02/23/2015 artery bypass graft Arteriosclerosis of coronary artery Ambika Bell M.D. Onset: 05/25/2015 bypass graft Tobacco user Ambika Bell M.D. Onset: 12/18/2015 Pure hypercholesterolemia Ambika Bell M.D. Onset: 01/23/2017 Low back pain Gabriela Maldonado M.D. Onset: 04/12/2018 Benign essential hypertension Onset: 05/12/2011 Hyperkalemia Onset: 05/12/2011 Social History Type Date Description Comments Sex Unknown Tobacco Use Start: Unknown 10/04/14 pt quit smoking, but currently uses a nicotine cartridge. Tobacco Use Start: Unknown Former Cigarette Smoker End: Unknown Smoking Status Reviewed: 04/18/19 Former Cigarette Smoker ETOH Use Denies alcohol use Tobacco Use Start: Unknown Patient is a current 1-2 cigars a day smoker, smokes every day Recreational Drug Use Denies Drug Use Exercise Type/Frequency Exercises sporadically Allergies, Adverse Reactions, Alerts Active Allergies Reaction Severity Comments Date Keflex Nausea and Vomiting 03/31/2012 Medications Active Medications SIG Qnty Indications Ordering Date Provider Colchicine Take 2 tabs po 10tabs Radha Mack, 04/18/2019 0.6mg Tablets now, then 1 tab M.D. po one hour later. Then, take one tab po daily until symptoms subside Amlodipine Besylate 10 mg by mouth 90tabs I12.9 Mohammad A. 03/25/2019 10mg daily at bedtime MD Ronna Tablets Ferrous Sulfate 1 tab by mouth 90tabs I12.9 Mohammad A. 03/25/2019 325(65Fe) everyother day MD Ronna mg Tablets Aspirin Ec Low Dose 1 by mouth every 90tabs Ambika Bell, 02/08/[address] Tablets [address] Flomax 1 tab by mouth 60caps Gregg 05/12/2011 0.4mg Capsules every day MD Heber Pulmicort Flexhaler 1 puff bid Gregg 05/12/2011 MD Heber 180mcg/Act Aerosol Vitamin B-12 2 tabs by mouth Unknown Natural every day 500mcg Tablets Sodium Bicarbonate 2 tasb by mouth Unknown 650mg three times a day Tablets SM Magnesium Oxide 1 by mouth every Unknown 250mg day Tablets Myrbetriq ( Has bottle but Sasha Caceres 25mg Tablets ER has not been Martir spears 24HR taking) Atorvastatin Calcium 1 tablet po daily Cannariato, 80mg Roimna Tapia, Tablets Amlodipine Besylate 1 by mouth every Unknown 10mg day Tablets Tizanidine HCL daily prn Cannariato, 2mg Romina Tapia, Tablets Doxercalciferol daily Teodoro Minor MD 0.5mcg Capsules Nicotine Polacrilex Cannariato, 2mg Romina Tapia Gum Viagrdary prn Unknown 100mg Tablets Finasteride 1 tab po daily Unknown 5mg Tablets Cpap W/ Oxygen qhs ( has but Unknown Device does not use ) Pantoprazole Sodium 1 by mouth every 90tabs Unknown 40mg day Tablets DR Tamsulosin HCL 1 by mouth every 90caps Unknown 0.4mg day ( Not been Capsules taking) Enablex 1 tab po every Unknown 15mg Tablets ER day 24HR Immunizations CPT Code Status Date Vaccine Lot # [id number] Given 05/20/2010 Pneumonia Vaccine 39976 Given 05/20/2010 Fluzone High Dose 70014 Given 04/09/2009 Tetanus And Diptheria (Td) For Adult Use Preservative Free 30566 Given 04/09/2009 Administration Swine Flu Shot Vital Signs Date Vital Result Comment 04/18/2019 10:48am Height 67 inches 5'7" Weight 159.50 lb Heart Rate 74 /min BP Systolic 128 mmHg BP Diastolic 70 mmHg Respiratory Rate 12 /min Pain Level 0 BMI (Body Mass Index) 25.0 kg/m2 03/25/2019 8:22am Height 67 inches 5'7" Weight 159.00 lb Heart Rate 74 /min BP Systolic Sitting 144 mmHg L arm BP Diastolic Sitting 70 mmHg L arm BMI (Body Mass Index) 24.9 kg/m2 Results Test Date Facility Test Result H/L Range Note Neph Routine 03/23/2019 [facility] Total Protein 92 mg/dL [address] [place] [address] [phone] Creatinine Random Urine 152.26 mg/dL CBC Auto 03/23/2019 [facility] White Blood 6.0 10^3/uL Normal 3.5-10.[address] [place] [address] [phone] Red Blood Count 2.89 10^6/uL Low 4.18-5.48 Hemoglobin 8.7 g/dL Low 14.0-18.0 Hematocrit 26 % Low 42-52 Mean Corpuscular Volume 89 fL Normal 80-94 Mean Corpuscular Hemoglobin 30 pg Normal 27-31 Mean Corpuscular HGB Conc 34 g/dL Normal 31-36 Red Cell Distribution Width 18 % High 10-15 Platelet Count 198 10^3/uL Normal 150-450 Mean Platelet Volume 7.4 fL Normal 7.4-10.4 Abs Neutrophils 4.0 10^3/uL Normal 1.5-7.7 Abs Lymphocytes 1.2 10^3/uL Normal 1.0-4.8 Abs Monocytes 0.5 10^3/uL Normal 0-0.8 Abs Eosinophils 0.3 10^3/uL Normal 0-0.6 Abs Basophils 0.1 10^3/uL Normal 0-0.2 Abs Nucleated RBC 0.0 10^3/uL Granulocyte % 66.8 % Lymphocyte % 19.5 % Monocyte % 7.6 % Eosinophil % 5.3 % Basophil % 0.8 % Nucleated Red Blood Cells % 0.0 Basic Metabolic 03/23/2019 [facility] Sodium 139 mmol/L Normal 135-[address] [place] [address] [phone] Potassium 4.8 mmol/L Normal 3.5-5.0 Chloride 108 mmol/L Normal 101-111 Co2 Carbon Dioxide 23 mmol/L Normal 22-32 Anion Gap 8 mmol/L Normal 2-11 Glucose 135 mg/dL High 70-100 Blood Urea Nitrogen 51 mg/dL High 6-24 Creatinine 2.71 mg/dL High 0.67-1.17 BUN/Creatinine Ratio 18.8 Normal 8-20 Calcium 8.3 mg/dL Low 8.6-10.3 Egfr Non- 23.0 >60 Egfr 27.8 >60 1 Urinalysis Profile 03/23/2019 [facility] Urine Color Yellow [address] [place] [address] [phone] Urine Appearance Clear Urine Specific [place] 1.014 Normal 1.010-1.030 Urine pH 5.0 Normal 5-9 Urine Urobilinogen Negative Negative Urine Ketones Negative Negative Urine Protein 2+(100 mg/dL) Abnormal Negative Urine Leukocytes Negative Negative Urine Blood Negative Negative Urine Nitrite Negative Negative Urine Bilirubin Negative Negative Urine Glucose Negative Negative Urine White Blood Cell Trace(0-5/hpf) Absent Urine Red Blood Cell Trace(0-2/hpf) Absent Urine Bacteria Absent Absent Urine Squamous Epithelial Cell Present Abnormal Absent Urine Hyaline Casts Present Abnormal Absent Urine Culture And 03/23/2019 [facility] Urine Culture SEE RESULT [address] [place] [address] [phone] 1 Because ethnic data is not always readily available, this report includes an eGFR for both -Americans and non- Americans. The National Kidney Disease Education Program (NKDEP) does not endorse the use of the MDRD equation for patients that are not between the ages of 18 and 70, are , have extremes of body size, muscle mass, or nutritional status, or are non- or non-. According to the National Kidney Foundation, irrespective of diagnosis, the stage of the disease is based on the level of kidney function: Stage Description GFR(mL/min/1.73 m(2)) 1 Kidney damage with normal or decreased GFR 90 2 Kidney damage with mild decrease in GFR 60-89 3 Moderate decrease in GFR 30-59 4 Severe decrease in GFR 15-29 5 Kidney failure <15 (or dialysis) 2 SEE RESULT BELOW Name: BHAVNA SEGURA : [address]: Joan Friend MD Acct: [id number] Unit: [id number] AGE: 78 Location: [facility] Re03/23/19 SEX: M Status: REG REF SPEC: [id number] MARCE: 03/23/19 [facility] DR: Joan Friend MD REQ: [id number] RECD: 03/23/19 STATUS: EDGAR EATON DR: Romina Bolden MD _ SOURCE: URINE SPDESC: ORDERED: Urine Culture Procedure Result Reported Site Urine Culture Final 03/24/19- 1615 ML No Growth (<1,000 CFU/mL) * ML - Main Lab . END OF REPORT DEPARTMENT OF PATHOLOGY, [address] [place] [address] Jurgen Mcdonnell M.D. Director [facility] # [id number] Procedures Description No Information Available Medical Devices Description No Information Available Encounters Type Date Location Provider Dx Diagnosis Office Visit 03/25/2019 [facility] Joan A. 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 chronic 8:30a MD Ronna kidney disease w stg 1-4/unsp chr kdny N18.4 Chronic kidney disease, stage 4 (severe) E87.5 Hyperkalemia D64.9 Anemia, unspecified E78.5 Hyperlipidemia, unspecified I10 Essential (primary) hypertension Office Visit 03/13/2019 9:33a [facility] Brendan Blaine, E87.5 Hyperkalemia Assoc,pc [place] Hospitalists B95.2 Enterococcus as the cause of diseases classified elsewhere N39.0 Urinary tract infection, site not specified N18.9 Chronic kidney disease, unspecified I25.10 Athscl heart disease of [place] coronary artery w/o ang pctrs I10 Essential (primary) hypertension E78.5 Hyperlipidemia, unspecified J44.9 Chronic obstructive pulmonary disease, unspecified D64.9 Anemia, unspecified Z86.73 Prsnl hx of TIA (TIA), and cereb infrc w/o resid deficits Office Visit 03/12/2019 9:33a [facility] E87.5 Hyperkalemia Assoc,john Baker MD Hospitalists N17.9 Acute kidney failure, unspecified N18.9 Chronic kidney disease, unspecified E87.2 Acidosis E83.42 Hypomagnesemia N40.1 Benign prostatic hyperplasia with lower urinary tract symp N39.0 Urinary tract infection, site not specified Office Visit 03/11/2019 9:28a [facility] E87.5 Hyperkalemia Assoc,john Baker MD Hospitalists N17.9 Acute kidney failure, unspecified N18.9 Chronic kidney disease, unspecified E87.2 Acidosis E83.42 Hypomagnesemia N40.1 Benign prostatic hyperplasia with lower urinary tract symp N39.0 Urinary tract infection, site not specified Office Visit 03/10/2019 9:28a [facility] E87.5 Hyperkalemia Assoc,john Baker MD Hospitalists N17.9 Acute kidney failure, unspecified N18.9 Chronic kidney disease, unspecified E87.2 Acidosis E83.42 Hypomagnesemia N40.0 Benign prostatic hyperplasia without lower urinry tract symp [facility] Ass[facility],pc MD Samuel Hospitalists N17.9 Acute kidney failure, unspecified N18.9 Chronic kidney disease, unspecified E87.2 Acidosis E83.42 Hypomagnesemia Office Visit 03/08/2019 9:23a [facility] Florencia Geiger, E87.5 Hyperkalemia Assoc,john Mcmahan Hospitalists N18.4 Chronic kidney disease, stage 4 (severe) R19.7 Diarrhea, unspecified R82.90 Unspecified abnormal findings in urine I10 Essential (primary) hypertension I25.10 Athscl heart disease of [place] coronary artery w/o ang pctrs N40.1 Benign prostatic hyperplasia with lower urinary tract symp Office Visit 03/07/2019 10:30a [facility] Joan Cruz N18.4 Chronic kidney MD Ronna disease, stage 4 (severe) 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 chronic kidney disease w stg 1-4/unsp chr kdny E87.5 Hyperkalemia E11.9 Type 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 complications J44.9 Chronic obstructive pulmonary disease, unspecified I50.30 Unspecified diastolic (congestive) heart failure I10 Essential (primary) hypertension Office Visit 02/27/2019 9:16a [facility] Brendan N39.0 Urinary tract Assoc,JAQUAN Hazel infection, site Hospitalists not specified E87.5 Hyperkalemia D64.9 Anemia, unspecified N17.9 Acute kidney failure, unspecified N18.9 Chronic kidney disease, unspecified N40.1 Benign prostatic hyperplasia with lower urinary tract symp I10 Essential (primary) hypertension E78.5 Hyperlipidemia, unspecified E11.9 Type 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 complications J44.9 Chronic obstructive pulmonary disease, unspecified Office Visit 02/26/2019 9:16a [facility] Brendan N39.0 Urinary tract Assoc,JAQUAN Hazel infection, site Hospitalists not specified N17.9 Acute kidney failure, unspecified N18.9 Chronic kidney disease, unspecified D64.9 Anemia, unspecified I25.10 Athscl heart disease of [place] coronary artery w/o ang pctrs I50.30 Unspecified diastolic (congestive) heart failure I10 Essential (primary) hypertension E87.5 Hyperkalemia E11.9 Type 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 complications Office Visit 02/25/2019 9:15a [facility] N39.0 Urinary tract Assoc,JAQUAN Hazel infection, site Hospitalists not specified N17.9 Acute kidney failure, unspecified N18.9 Chronic kidney disease, unspecified D64.9 Anemia, unspecified I25.10 Athscl heart disease of [place] coronary artery w/o [facility] pctrs J44.9 Chronic obstructive pulmonary disease, unspecified I50.30 Unspecified diastolic (congestive) heart failure I10 Essential (primary) hypertension E87.5 Hyperkalemia E11.9 Type 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 complications Office Visit 02/[facility]2019 [facility] N[facility] Urinary tract Assoc,john Tello M.D. infection, site Hospitalists not specified N17.9 Acute kidney failure, unspecified N18.3 Chronic kidney disease, stage 3 (moderate) I25.10 Athscl heart disease of [place] coronary artery w/o ang pctrs Z72.0 Tobacco use Z95.2 Presence of prosthetic heart valve Office Visit 02/06/2019 9:29a [facility], E87.5 Hyperkalemia Assocjohn M.D. Hospitalists N17.9 Acute kidney failure, unspecified E16.2 Hypoglycemia, unspecified E87.2 Acidosis I10 Essential (primary) hypertension E78.5 Hyperlipidemia, unspecified E11.9 Type 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 complications J44.9 Chronic obstructive pulmonary disease, unspecified D64.9 Anemia, unspecified Office Visit 02/05/2019 9:28a [facility], E87.5 Hyperkalemia Assocjohn M.D. Hospitalists N17.9 Acute kidney failure, unspecified N18.3 Chronic kidney disease, stage 3 (moderate) I10 Essential (primary) hypertension E11.9 Type 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 complications E78.5 Hyperlipidemia, unspecified N40.0 Benign prostatic hyperplasia without lower urinry tract symp Office Visit 02/04/2019 9:28a [facility], E87.5 Hyperkalemia Assocjohn M.D. Hospitalists N17.9 Acute kidney failure, unspecified N18.3 Chronic kidney disease, stage 3 (moderate) I10 Essential (primary) hypertension E11.9 Type 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 complications E78.5 Hyperlipidemia, unspecified N40.0 Benign prostatic hyperplasia without lower urinry tract symp Office Visit 02/03/2019 9:27a [facility] Megan Kohli, N18.3 Chronic kidney Assoc,john Mcmahan disease, stage 3 Hospitalists (moderate) E87.5 Hyperkalemia R19.7 Diarrhea, unspecified Z86.79 Personal history of other diseases of the circulatory system Z86.39 Personal history of endo, nutritional and metabolic disease Z87.09 Personal history of other diseases of the respiratory system Assessments Date Code Description Provider 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, right hand Dee Grant, RPA-C 03/25/2019 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 chronic kidney disease with Joan Friend MD stage 1 through stage 4 chronic kidney disease, or unspecified chronic kidney disease 03/25/2019 N18.4 Chronic kidney disease, stage 4 (severe) Joan Friend MD 03/25/2019 E87.5 Hyperkalemia Joan Friend MD 03/25/2019 D64.9 Anemia, unspecified Joan Friend MD 03/25/2019 E78.5 Hyperlipidemia, unspecified Joan Friend MD 03/25/2019 I10 Essential (primary) hypertension Joan Friend MD 03/13/2019 E87.5 Hyperkalemia JAQUAN Patel 03/13/2019 B95.2 Enterococcus as the cause of diseases JAQUAN Patel classified elsewhere 03/13/2019 N39.0 Urinary tract infection, site not specified JAQUAN Patel 03/13/2019 N18.9 Chronic kidney disease, unspecified JAQUAN Patel 03/13/2019 I25.10 Atherosclerotic heart disease of [place] JAQUAN Patel coronary artery without angina pectoris 03/13/2019 I10 Essential (primary) hypertension JAQUAN Patel 03/13/2019 E78.5 Hyperlipidemia, viniciusified JAQUAN Patel 03/13/2019 J44.9 Chronic obstructive pulmonary disease, JAQUAN Patel unspecified 03/13/2019 D64.9 Anemia, unspecified JAQUAN Patel 03/13/2019 Z86.73 Personal history of transient ischemic Brendan Blaine, [place] attack (TIA), and cerebral infarction without residual deficits 03/12/2019 E87.5 Hyperkalemia Juanita Baker MD 03/12/2019 N17.9 Acute kidney failure, unspecified Juanita Baker MD 03/12/2019 N18.9 Chronic kidney disease, unspecified Juanita Baker MD 03/12/2019 E87.2 Acidosis Juanita Baker MD 03/12/2019 E83.42 Hypomagnesemia Juanita Baker MD 03/12/2019 N40.1 Benign prostatic hyperplasia with lower Juanita Baker MD urinary tract symptoms 03/12/2019 N39.0 Urinary tract infection, site not specified Juanita Baker MD 03/11/2019 E87.5 Hyperkalemia Juanita Baker MD 03/11/2019 N17.9 Acute kidney failure, unspecified Jaunita Baker MD 03/11/2019 N18.9 Chronic kidney disease, unspecified Juanita Baker MD 03/11/2019 E87.2 Acidosis Juanita Baker MD 03/11/2019 E83.42 Hypomagnesemia Juanita Baker MD 03/11/2019 N40.1 Benign prostatic hyperplasia with lower Juanita Baker MD urinary tract symptoms 03/11/2019 N39.0 Urinary tract infection, site not specified Juanita Baker MD 03/10/2019 E87.5 Hyperkalemia Juanita Baker MD 03/10/2019 N17.9 Acute kidney failure, unspecified Juanita Baker MD 03/10/2019 N18.9 Chronic kidney disease, unspecified Juanita Baker MD 03/10/2019 E87.2 Acidosis Juanita Baker MD 03/10/2019 E83.42 Hypomagnjeremiasmia Juanita Baker MD 03/10/2019 N40.0 Benign prostatic hyperplasia without lower Juanita Baker MD urinary tract symptoms 03/09/2019 E87.5 Hyperkalemia Juanita Baker MD 03/09/2019 N17.9 Acute kidney failure, unspecified Juanita Baker MD 03/09/2019 N18.9 Chronic kidney disease, unspecified Juanita Baker MD 03/09/2019 E87.2 Acidosis Juanita Baker MD 03/09/2019 E83.42 Hypomagnesemia Juanita Baker MD 03/08/2019 E87.5 Hyperkalemia Florencia Geiger M.D. 03/08/2019 N18.4 Chronic kidney disease, stage 4 (severe) Florencia Geiger M.D. 03/08/2019 R19.7 Diarrhea, unspecified Florencia Geiger M.D. 03/08/2019 R82.90 Unspecified abnormal findings in urine Florencia Geiger M.D. 03/08/2019 I10 Essential (primary) hypertension Florencia Geiger M.D. 03/08/2019 I25.10 Atherosclerotic heart disease of [place] Florencia Geiger M.D. coronary artery without angina pectoris 03/08/2019 N40.1 Benign prostatic hyperplasia with lower Florencia Geiger M.D. urinary tract symptoms 03/07/2019 N18.4 Chronic kidney disease, stage 4 (severe) Joan Friend MD 03/07/2019 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 chronic kidney disease with Joan Friend MD stage 1 through stage 4 chronic kidney disease, or unspecified chronic kidney disease 03/07/2019 E87.5 Hyperkalemia Joan Friend MD 03/07/2019 E11.9 Type 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 Joan Friend MD complications 03/07/2019 J44.9 Chronic obstructive pulmonary disease, Joan Friend MD unspecified 03/07/2019 I50.30 Unspecified diastolic (congestive) heart Joan Friend MD failure 03/07/2019 I10 Essential (primary) hypertension Joan Friend MD 02/27/2019 N39.0 Urinary tract infection, site not specified JAQUAN Patel 02/27/2019 E87.5 Hyperkalemia JAQUAN Patel 02/27/2019 D64.9 Anemia, unspecified JAQUAN Patel 02/27/2019 N17.9 Acute kidney failure, unspecified Brendan Blaine, [place] 02/27/2019 N18.9 Chronic kidney disease, unspecified Brendan [place], [place] 02/27/2019 N40.1 Benign prostatic hyperplasia with lower Brendan [place], [place] urinary tract symptoms 02/27/2019 I10 Essential (primary) hypertension Brendan [place], [place] 02/27/2019 E78.5 Hyperlipidemia, unspecified Brendan [place], [place] 02/27/2019 E11.9 Type 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 Brendan [place], [place] complications 02/27/2019 J44.9 Chronic obstructive pulmonary disease, Brendan [place], [place] unspecified 02/26/2019 N39.0 Urinary tract infection, site not specified Brendan [place] , [place] 02/26/2019 N17.9 Acute kidney failure, unspecified Brendan [place], [place] 02/26/2019 N18.9 Chronic kidney disease, unspecified Brendan [place], [place] 02/26/2019 D64.9 Anemia, unspecified Brendan [place], [place] 02/26/2019 I25.10 Atherosclerotic heart disease of [place] Brendan Valladares PA coronary artery without angina pectoris 02/26/2019 I50.30 Unspecified diastolic (congestive) heart Brendan [place]ada[place], [place] failure 02/26/2019 I10 Essential (primary) hypertension Brendan [place], [place] 02/26/2019 E87.5 Hyperkalemia Brendan [place], [place] 02/26/2019 E11.9 Type 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 Brendan [place], [place] complications 02/25/2019 N39.0 Urinary tract infection, site not specified Brendan [place] , [place] 02/25/2019 N17.9 Acute kidney failure, unspecified Brendan [place], [place] 02/25/2019 N18.9 Chronic kidney disease, unspecified Brendan Bl[place], [place] 02/25/2019 D64.9 Anemia, unspecified Brendan Bl[place], [place] 02/25/2019 I25.10 Atherosclerotic heart disease of [place] Brendan Vallada[place], [place] coronary artery without angina pectoris 02/25/2019 J44.9 Chronic obstructive pulmonary disease, Brendan Blaine, [place] unspecified 02/25/2019 I50.30 Unspecified diastolic (congestive) heart Brendan [place]ada[place], [place] failure 02/25/2019 I10 Essential (primary) hypertension Brendan [place]ada[place], [place] 02/25/2019 E87.5 Hyperkalemia Brendan [place], [place] 02/25/2019 E11.9 Type 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 JAQUAN Patel complications 02/24/2019 N39.0 Urinary tract infection, site not specified Silverio Tello M.D. 02/24/2019 N17.9 Acute kidney failure, unspecified Silverio Tello M.D. 02/24/2019 N18.3 Chronic kidney disease, stage 3 (moderate) Silverio Tello M.D. 02/24/2019 I25.10 Atherosclerotic heart disease of [place] Silverio Tello M.D. coronary artery without angina pectoris 02/24/2019 Z72.0 Tobacco use Silverio Tello M.D. 02/24/2019 Z95.2 Presence of prosthetic heart valve Silverio Tello M.D. 02/06/2019 E87.5 Hyperkalemia Cortez Ji M.D. 02/06/2019 N17.9 Acute kidney failure, unspecified Cortez Ji M.D. 02/06/2019 E16.2 Hypoglycemia, unspecified Cortez Ji M.D. 02/06/2019 E87.2 Acidosis Cortez Ji M.D. 02/06/2019 I10 Essential (primary) hypertension Cortez Ji M.D. 02/06/2019 E78.5 Hyperlipidemia, unspecified Cortez Ji M.D. 02/06/2019 E11.9 Type 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 Cortez Ji M.D. complications 02/06/2019 J44.9 Chronic obstructive pulmonary disease, Cortez Ji M.D. unspecified 02/06/2019 D64.9 Anemia, unspecified Cortez Ji M.D. 02/05/2019 E87.5 Hyperkalemia Cortez Ji M.D. 02/05/2019 N17.9 Acute kidney failure, unspecified Cortez Ji M.D. 02/05/2019 N18.3 Chronic kidney disease, stage 3 (moderate) Cortez Ji M.D. 02/05/2019 I10 Essential (primary) hypertension Cortez Ji M.D. 02/05/2019 E11.9 Type 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 Cortez Ji M.D. complications 02/05/2019 E78.5 Hyperlipidemia, unspecified Cortez Ji M.D. 02/05/2019 N40.0 Benign prostatic hyperplasia without lower Cortez Ji M.D. urinary tract symptoms 02/04/2019 E87.5 Hyperkalemia Cortez Ji M.D. 02/04/2019 N17.9 Acute kidney failure, unspecified Cortez Ji M.D. 02/04/2019 N18.3 Chronic kidney disease, stage 3 (moderate) Cortez Ji M.D. 02/04/2019 I10 Essential (primary) hypertension Cortez Ji M.D. 02/04/2019 E11.9 Type 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 Cortez Ji M.D. complications 02/04/2019 E78.5 Hyperlipidemia, unspecified Cortez Ji M.D. 02/04/2019 N40.0 Benign prostatic hyperplasia without lower Cortez Ji M.D. urinary tract symptoms 02/03/2019 N18.3 Chronic kidney disease, stage 3 (moderate) Megan Kohli M.D. 02/03/2019 E87.5 Hyperkalemia Megan Kohli M.D. 02/03/2019 R19.7 Diarrhea, unspecified Megan Kohli M.D. 02/03/2019 Z86.79 Personal history of other diseases of the Megan Kohli M.D. circulatory system 02/03/2019 Z86.39 Personal history of other endocrine, Megan Kohli M.D. nutritional and metabolic disease 02/03/2019 Z87.09 Personal history of other diseases of the Megan Kohli M.D. respiratory system Plan of Treatment Future Appointment(s):04/25/2019 3:00 pm - Radha Mack M.D. at [facility] at Gmfwep3305/03/2019 3:30 pm - Joan Friend MD at [facility] Dngrwwfuhv36/28/2019 - Dee Grant [facility]-C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, right handFollow up:Follow up: 1 week Functional Status Description No Information Available Mental Status Description No Information Available Referrals Description No Information Available
--- OUTSIDE RECORDS SUMMARY | 2019-06-04 11:26 | XMS REPORT | Continuity of Care Document ---
:1940 External Reference #:[id number] Author Name Radha Mack M.D. (transmitted by agent of provider Daphne Muhammad) Address [address] [place] [address] [place] [address] Care Team Providers Name Role Phone Mikaela Torres MD - Care Team Information Integrated Campaign Manager [phone] Endocrinology, Diabetes & Metabolism Romina Bolden MD - Care Team Information Integrated Campaign Manager Family Medicine Problems Active Problems Provider Date Chest pain JAQUAN Montemayor Onset: 09/16/2013 Dyspnea JAQUAN Montemayor Onset: 09/16/2013 Aortic valve disorder JAQUAN Montemayor Onset: 09/16/2013 Transient cerebral ischemia Ambika Bell M.D. Onset: 11/04/2013 Aphasia Ambika Bell M.D. Onset: 11/04/2013 Essential hypertension Luis Enrique Liu M.D., [facility], Onset: 02/08/2014 [facility] Postoperative Wound Closure Encounter Luis Enrique Liu M.D., [facility], Onset: 2013 [facility] Anemia Ambika Bell M.D. Onset: 05/30/2014 Renal [...] Cigarette Smoker End: Unknown Smoking Status Reviewed: 05/04/19 Former Cigarette Smoker ETOH Use Denies alcohol use Tobacco Use Start: Unknown Patient is a current 1-2 cigars a day smoker, smokes every day Recreational Drug Use Denies Drug Use Exercise Type/Frequency Exercises sporadically Allergies, Adverse Reactions, Alerts Active Allergies Reaction Severity Comments Date Keflex Nausea and Vomiting 03/31/2012 Medications Active Medications SIG Qnty Indications Ordering Date Provider Amlodipine Besylate 10 mg by mouth 90tabs I12.9 [facility] AMassimo 03/25/2019 10mg daily at bedtime MD Ronna Tablets Ferrous Sulfate 1 tab by mouth 90tabs I12.9 Mohammad A. 03/25/2019 325(65Fe) everyother day MD Ronna mg Tablets Aspirin Ec Low Dose 1 by mouth every 90tabs Ambika Bell, 02/08/2019 81mg day M.D. Tablets Flomax 1 tab by mouth 60caps Gregg 05/12/2011 0.4mg Capsules every day MD Heber Enablex 1 tab po every Unknown 15mg Tablets ER day 24HR Tamsulosin HCL 1 by mouth every 90caps Unknown 0.4mg day Capsules Pantoprazole Sodium 1 by mouth every 90tabs Unknown 40mg day Tablets Cpap W/ Oxygen qhs ( has but Unknown Device does not use ) Finasteride 1 tab po daily Unknown 5mg Tablets Doxercalciferol daily Teodoro Minor MD 0.5mcg Capsules Tizanidine HCL daily prn Cannariato, 2mg Romina Tapia, Tablets Amlodipine Besylate 1 by mouth every Unknown 10mg day Tablets Atorvastatin Calcium 1 tablet po daily Cannariato, 80mg Romina Tapia Tablets SM Magnesium Oxide 1 by mouth every Unknown 250mg day Tablets Vitamin B-12 2 tabs by mouth Unknown Natural every day 500mcg Tablets History Medications Colchicine Take 2 tabs po 10tabs Radha Mack, 04/18/2019 - 0.6mg now, then 1 tab po M.D. 04/19/2019 Tablets one hour later. Then, take one tab po daily until symptoms subside Immunizations CPT Code Status Date Vaccine Lot # [id number] Given 05/20/2010 Pneumonia Vaccine [id number] Given 05/20/2010 Fluzone High Dose 89995 Given 04/09/2009 Tetanus And Diptheria (Td) For Adult Use Preservative Free 78899 Given 04/09/2009 Administration Swine Flu Shot Vital Signs Date Vital Result Comment 05/04/2019 4:10pm Height 67 inches 5'7" Weight 160.00 lb Heart Rate 64 /min BP Systolic 110 mmHg BP Diastolic 64 mmHg Respiratory Rate 18 /min Body Temperature 97.6 F Pain Level 0 BMI (Body Mass Index) 25.1 kg/m2 04/20/2019 1:12pm Height 67 inches 5'7" Weight 153.00 lb Heart Rate 84 /min BP Systolic 128 mmHg BP Diastolic 74 mmHg BMI (Body Mass Index) 24.0 kg/m2 Results Test Acquired Date Facility Test Result H/L Range Note Laboratory test 04/20/2019 [facility] Hemoglobin A1c 4.5 % Normal 4.0-5.[address] (Glyco HGB) [place] [address] [phone] Neph Routine 03/23/2019 [facility] Total Protein 92 mg/dL [address] [place] [place] [address] [phone] Creatinine Random Urine 152.26 mg/dL CBC Auto 03/23/2019 [facility] White Blood 6.0 10^3/uL Normal 3.5-10.[address] [place] [address] [phone] Red Blood Count 2.89 10^6/uL Low 4.18-5.48 [...] Blood Cells % 0.0 Basic Metabolic 03/23/2019 [facility] Sodium 139 mmol/L Normal 135-145 Panel [facility] [place] [address] [phone] Potassium 4.8 mmol/L Normal 3.5-5.0 Chloride 108 mmol/L Normal 101-111 Co2 Carbon Dioxide 23 mmol/L Normal 22-32 Anion Gap 8 mmol/L Normal 2-11 Glucose 135 mg/dL High 70-100 Blood Urea Nitrogen 51 mg/dL High 6-24 Creatinine 2.71 mg/dL High 0.67-1.17 BUN/Creatinine Ratio 18.8 Normal 8-20 Calcium 8.3 mg/dL Low 8.6-10.3 Egfr Non- 23.0 >60 Egfr 27.8 >60 2 Urinalysis Profile 03/23/2019 [facility] Urine Color Yellow [address] [place] [address] [phone] Urine Appearance Clear Urine Specific [place] 1.014 Normal 1.010-1.030 Urine pH 5.0 Normal [...] Present Abnormal Absent Urine Culture And 03/23/2019 [facility] Urine Culture SEE RESULT [address] [place] [address] [phone] 1 Therapeutic target for the treatment of diabetes mellitus patients is <7% HBA1C, and in selective patients <6.0%. Please refer to [place] [employer] diabetic care guidelines for further information. 2 Because ethnic data is not always readily [...] 15-29 5 Kidney failure <15 (or dialysis) 3 SEE RESULT BELOW Name: BHAVNA SEGURA : [address]: Joan Friend MD Acct: [id number] Unit: [id number] AGE: 78 Location: [facility] Re03/23/19 SEX: M Status: REG REF SPEC: [id number] MARCE: 03/23/[address] [facility] [address]: Joan Firend MD REQ: [id number] RECD: 03/23/19 STATUS: EDGAR EATON DR: Romina Bolden MD _ SOURCE: URINE SPDESC: ORDERED: Urine Culture Procedure Result Reported Site Urine Culture Final 03/24/19- 1615 ML No Growth (<1,000 CFU/mL) * ML - Main Lab . END OF REPORT DEPARTMENT OF PATHOLOGY, [address] [place] [address] Jurgen Mcdonnell M.D. 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 8:30a MD Ronna chronic kidney disease w stg 1-4/unsp chr kdny N18.4 Chronic kidney disease, stage 4 (severe) E87.5 Hyperkalemia D64.9 Anemia, unspecified E78.5 Hyperlipidemia, unspecified I10 Essential (primary) hypertension Office Visit 03/13/2019 9:33a [facility] Brendan Valladares, E87.5 Hyperkalemia Assoc,john PA Hospitalists B95.2 Enterococcus as the cause of diseases classified elsewhere N39.0 Urinary tract infection, site not specified N18.9 Chronic kidney disease, unspecified I25.10 Athscl heart disease of [place] coronary artery w/o ang pctrs I10 Essential (primary) hypertension E78.5 Hyperlipidemia, unspecified J44.9 Chronic obstructive pulmonary disease, unspecified D64.9 Anemia, unspecified Z86.73 Prsnl hx of TIA (TIA), and cereb infrc w/o resid deficits Office Visit 03/12/2019 9:33a [facility] E87.5 Hyperkalemia Asshortencia,john Baker MD Hospitalists N17.9 Acute kidney failure, unspecified N18.9 Chronic kidney disease, unspecified E87.2 Acidosis E83.42 Hypomagnesemia N40.1 Benign prostatic hyperplasia with lower urinary tract symp N39.0 Urinary tract infection, site not specified Office Visit 03/11/2019 9:28a [facility] E87.5 Hyperkalemia Assjohn burnett MD Hospitalists N17.9 Acute kidney failure, unspecified N18.9 Chronic kidney disease, unspecified E87.2 Acidosis E83.42 Hypomagnesemia N40.1 Benign prostatic hyperplasia with lower urinary tract symp N39.0 Urinary tract infection, site not specified Office Visit 03/10/2019 9:28a [facility] E87.5 Hyperkalemia Asshortencia,john Baker MD Hospitalists N17.9 Acute kidney failure, unspecified N18.9 Chronic kidney disease, unspecified E87.2 Acidosis E83.42 Hypomagnesemia N40.0 Benign prostatic hyperplasia without lower urinry tract symp Office Visit 03/09/2019 9:27a [facility] Juanita E87.5 Hyperkalemia Assoc,pc MD Samuel Hospitalists N17.9 Acute kidney failure, unspecified N18.9 Chronic kidney disease, unspecified E87.2 Acidosis E83.42 Hypomagnesemia Office Visit 03/08/2019 9:23a [facility] Florencia Geiger, E87.5 Hyperkalemia Assoc,john Mcmahan Hospitalists N18.4 Chronic kidney disease, stage 4 (severe) R19.7 Diarrhea, unspecified R82.90 Unspecified abnormal findings in urine I10 Essential (primary) hypertension I25.10 Athscl heart disease of [place] coronary artery w/o ang pctrs N40.1 Benign prostatic hyperplasia with lower urinary tract symp Office Visit 03/07/2019 10:30a [facility] Nephrology Joan Cruz N18.4 Chronic kidney MD Ronna disease, stage 4 (severe) 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 chronic kidney disease w stg 1-4/unsp chr kdny E87.5 Hyperkalemia E11.9 Type 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 complications J44.9 Chronic obstructive pulmonary disease, unspecified I50.30 Unspecified diastolic (congestive) heart failure I10 Essential (primary) hypertension Office Visit 02/27/2019 9:16a [facility] Brendan N39.0 Urinary tract Assoc,pc JAQUAN Valladares infection, site Hospitalists not specified E87.5 Hyperkalemia D64.9 Anemia, unspecified N17.9 Acute kidney failure, unspecified N18.9 Chronic kidney disease, unspecified N40.1 Benign prostatic hyperplasia with lower urinary tract symp I10 Essential (primary) hypertension E78.5 Hyperlipidemia, unspecified E11.9 Type 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 complications J44.9 Chronic obstructive pulmonary disease, unspecified Office Visit 02/26/2019 9:16a [facility] Brendan N39.0 Urinary tract Assoc,JAQUAN Hazel infection, site Hospitalists not specified N17.9 Acute kidney failure, unspecified N18.9 Chronic kidney disease, unspecified D64.9 Anemia, unspecified I25.10 Athscl heart disease of [place] coronary artery w/o ang pctrs I50.30 Unspecified diastolic (congestive) heart failure I10 Essential (primary) hypertension E87.5 Hyperkalemia E11.9 Type 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 complications Office Visit 02/25/2019 9:15a [facility] Brendan N39.0 Urinary tract Assoc,JAQUAN Hazel infection, site Hospitalists not specified N17.9 Acute kidney failure, unspecified N18.9 Chronic kidney disease, unspecified D64.9 Anemia, unspecified I25.10 Athscl heart disease of [place] coronary artery w/o ang pctrs J44.9 Chronic obstructive pulmonary disease, unspecified I50.30 Unspecified diastolic (congestive) heart failure I10 Essential (primary) hypertension E87.5 Hyperkalemia E11.9 Type 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 complications [facility] Assoc,john Tello M.D. infection, site Hospitalists not specified N17.9 Acute kidney failure, unspecified N18.3 Chronic kidney disease, stage 3 (moderate) I25.10 Athscl heart disease of [place] coronary artery w/o ang pctrs Z72.0 Tobacco use Z95.2 Presence of prosthetic heart valve Office Visit 02/06/2019 9:29a [facility], E87.5 Hyperkalemia Assocjohn M.D. Hospitalists N17.9 Acute kidney failure, unspecified E16.2 Hypoglycemia, unspecified E87.2 Acidosis I10 Essential (primary) hypertension E78.5 Hyperlipidemia, unspecified E11.9 Type 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 complications J44.9 Chronic obstructive pulmonary disease, unspecified D64.9 Anemia, unspecified Office Visit 02/05/2019 9:28a [facility], E87.5 Hyperkalemia Assocjohn M.D. Hospitalists N17.9 Acute kidney failure, unspecified N18.3 Chronic kidney disease, stage 3 (moderate) I10 Essential (primary) hypertension E11.9 Type 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 complications E78.5 Hyperlipidemia, unspecified N40.0 Benign prostatic hyperplasia without lower urinry tract symp Office Visit 02/04/2019 9:28a [facility], E87.5 Hyperkalemia Assocjohn M.D. Hospitalists N17.9 Acute kidney failure, unspecified N18.3 Chronic kidney disease, stage 3 (moderate) I10 Essential (primary) hypertension E11.9 Type 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 complications E78.5 Hyperlipidemia, unspecified N40.0 Benign prostatic hyperplasia without lower urinry tract symp Office Visit 02/03/2019 9:27a [facility] Megan Kohli, N18.3 Chronic kidney Assoc,john Mcmahan disease, stage 3 Hospitalists (moderate) E87.5 Hyperkalemia R19.7 Diarrhea, unspecified Z86.79 Personal history of other diseases of the circulatory system Z86.39 Personal history of endo, nutritional and metabolic disease Z87.09 Personal history of other diseases of the respiratory system Assessments Date Code Description Provider 04/20/2019 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, right hand Dee Grant, KAYLEE-C 03/25/2019 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 chronic kidney disease with Joan Friend MD stage 1 through stage 4 chronic kidney disease, or unspecified chronic kidney disease 03/25/2019 N18.4 Chronic kidney disease, stage 4 (severe) Joan Friend MD 03/25/2019 E87.5 Hyperkalemia Joan Friend MD 03/25/2019 D64.9 Anemia, unspecified Joan Friend MD 03/25/2019 E78.5 Hyperlipidemia, viniciusified Joan Friend MD 03/25/2019 I10 Essential (primary) hypertension Joan Friend MD 03/13/2019 E87.5 Hyperkalemia JAQUAN Patel 03/13/2019 B95.2 Enterococcus as the cause of diseases JAQUAN Patel classified elsewhere 03/13/2019 N39.0 Urinary tract infection, site not specified JAQUAN Patel 03/13/2019 N18.9 Chronic kidney disease, unspecified JAQUAN Patel 03/13/2019 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 03/13/2019 I10 Essential (primary) hypertension JAQUAN Patel 03/13/2019 E78.5 Hyperlipidemia, unspecified JAQUAN Patel 03/13/2019 J44.9 Chronic obstructive pulmonary disease, JAQUAN Patel unspecified 03/13/2019 D64.9 Anemia, unspecified JAQUAN Patel 03/13/2019 Z86.73 Personal history of transient ischemic Brendan Valladares, [place] attack (TIA), and cerebral infarction without [...] MD 03/11/2019 N17.9 Acute kidney failure, unspecified Juanita Baker MD 03/11/2019 N18.9 Chronic kidney disease, unspecified Juanita Baker MD 03/11/2019 E87.2 Acidosis Juanita Baker MD 03/11/2019 E83.42 Hypomagnjeremiasmia Juanita Baker MD 03/11/2019 N40.1 Benign prostatic [...] M.D. 03/08/2019 I25.10 Atherosclerotic heart disease of [place] Florencia Geiger M.D. coronary artery without angina [...] complications 03/07/2019 J44.9 Chronic obstructive pulmonary disease, Jaon Friend MD unspecified 03/07/2019 I50.30 Unspecified diastolic (congestive) heart Joan Friend MD failure 03/07/2019 I10 Essential (primary) hypertension Joan Friend MD 02/27/2019 N39.0 Urinary tract infection, site not specified JAQUAN Patel 02/27/2019 E87.5 Hyperkalemia Brendan [place] 02/27/2019 D64.9 Anemia, unspecified Brendan [place], [place] 02/27/2019 N17.9 Acute kidney failure, unspecified Brendan [place], [place] 02/27/2019 N18.9 Chronic kidney disease, unspecified Brendan [place], [place] 02/27/2019 N40.1 Benign prostatic hyperplasia with lower Brendan [place], [place] urinary tract symptoms 02/27/2019 I10 Essential (primary) hypertension Brendan [place], [place] 02/27/2019 E78.5 Hyperlipidemia, unspecified Brendan [place], [place] 02/27/2019 E11.9 Type 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 Brendan [place], [place] complications 02/27/2019 J44.9 Chronic obstructive pulmonary disease, Brendan [place], [place] unspecified 02/26/2019 N39.0 Urinary tract infection, site not specified Brendan [place] , [place] 02/26/2019 N17.9 Acute kidney failure, unspecified Brendan [place], [place] 02/26/2019 N18.9 Chronic kidney disease, unspecified Brendan [place], [place] 02/26/2019 D64.9 Anemia, unspecified Brendan [place], [place] 02/26/2019 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[place], [place] coronary artery without angina pectoris 02/26/2019 I50.30 Unspecified diastolic (congestive) heart Brendan [place], [place] failure 02/26/2019 I10 Essential (primary) hypertension Brendan [place], [place] 02/26/2019 E87.5 Hyperkalemia Brendan [place], [place] 02/26/2019 E11.9 Type 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 Brendan [place], [place] complications 02/25/2019 N39.0 Urinary tract infection, site not specified Brendan [place] , [place] 02/25/2019 N17.9 Acute kidney failure, unspecified Brendan [place], [place] 02/25/2019 N18.9 Chronic kidney disease, unspecified Brendan [place], [place] 02/25/2019 D64.9 Anemia, unspecified Brendan [place], [place] 02/25/2019 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 02/24/2019 N17.9 Acute kidney failure, unspecified Silverio Tello M.D. 02/24/2019 N18.3 Chronic kidney disease, stage 3 (moderate) Silverio Tello M.D. 02/24/2019 I25.10 Atherosclerotic heart disease of [place] Silverio Tello M.D. coronary artery without angina [...] hypertension Cortez Ji M.D. 02/06/2019 E78.5 Hyperlipidemia, viniciusified Cortez Ji M.D. 02/06/2019 E11.9 Type 2 [...] Kohli M.D. respiratory system Plan of Treatment No Information Available Functional Status Description No Information Available Mental Status Description No Information Available Referrals Description No Information Available
--- OUTSIDE RECORDS SUMMARY | 2019-06-04 11:26 | XMS REPORT | Continuity of Care Document ---
:1940 External Reference #:[id number] Author Name Radha Mack M.D. (transmitted by agent of provider Nela Samayoa) Address [address] 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 Onset: 11/04/2013 Aphasia Ambika Bell M.D. Onset: 11/04/2013 Essential hypertension Luis Enrique Liu M.D., [facility], Onset: 02/08/2014 [facility] Postoperative Wound Closure Encounter Luis Enrique Liu M.D., [facility], Onset: 2013 [facility] Anemia Ambika Bell M.D. Onset: 05/30/2014 [...] Cigarette Smoker End: Unknown Smoking Status Reviewed: 04/20/19 Former Cigarette Smoker ETOH Use Denies alcohol [...] 1 tablet po daily Cannariato, 80mg Romina Tapia, Tablets Amlodipine Besylate 1 by mouth every Unknown 10mg day Tablets Tizanidine HCL daily prn Cannariato, 2mg Romina Tapia, Tablets Doxercalciferol daily Teodoro Minor MD 0.5mcg Capsules Nicotine Polacrilex Cannariato, 2mg Romina Tapia, Gum Viagra prn Unknown 100mg Tablets Finasteride 1 tab po daily Unknown 5mg Tablets Cpap W/ Oxygen qhs ( has but Unknown Device does not use ) Pantoprazole Sodium 1 by mouth every 90tabs Unknown 40mg day Tablets Tamsulosin HCL 1 by mouth every 90caps Unknown 0.4mg day ( Not been Capsules taking) Enablex 1 tab po every Unknown 15mg Tablets ER day 24HR History Medications Colchicine Take 2 tabs po 10tabs Radha Mack, 04/18/2019 - 0.6mg now, then 1 tab po M.D. 04/19/2019 Tablets one hour later. Then, take one tab po daily until symptoms subside Immunizations CPT Code Status Date Vaccine Lot # [id number] Given 05/20/2010 Pneumonia Vaccine [id number] Given 05/20/2010 Fluzone High Dose 62194 Given 04/09/2009 Tetanus And Diptheria (Td) For Adult Use Preservative Free 65845 Given 04/09/2009 Administration Swine Flu Shot Vital Signs Date Vital Result Comment 04/20/2019 1:12pm Height 67 inches 5'7" Weight 153.00 lb Heart Rate 84 /min BP Systolic 128 mmHg BP Diastolic 74 mmHg BMI (Body Mass Index) 24.0 kg/m2 04/18/2019 10:48am Height 67 inches 5'7" Weight 159.50 lb Heart Rate 74 /min BP Systolic 128 mmHg BP Diastolic 70 mmHg Respiratory Rate 12 /min Pain Level 0 BMI (Body Mass Index) 25.0 kg/m2 Results Test Acquired Date Facility Test Result H/L Range Note Neph Routine 03/23/2019 [facility] Total Protein 92 mg/dL [address] [place] [address] [phone] Creatinine Random Urine 152.26 mg/dL CBC Auto 03/23/2019 [facility] White Blood 6.0 10^3/uL Normal 3.5-10.[address] [place] [address] [phone] Red Blood Count 2.89 10^6/uL Low 4.18-5.48 [...] Blood Cells % 0.0 Basic Metabolic 03/23/2019 [facility] Sodium 139 mmol/L Normal 135-[address] [place] [address] [phone] Potassium 4.8 mmol/L Normal 3.5-5.0 Chloride 108 mmol/L Normal 101-111 Co2 Carbon Dioxide 23 mmol/L Normal 22-32 Anion Gap 8 mmol/L Normal 2-11 Glucose 135 mg/dL High 70-100 Blood Urea Nitrogen 51 mg/dL High 6-24 Creatinine 2.71 mg/dL High 0.67-1.17 BUN/Creatinine Ratio 18.8 Normal 8-20 Calcium 8.3 mg/dL Low 8.6-10.3 Egfr Non- 23.0 >60 Egfr 27.8 >60 1 Urinalysis Profile 03/23/2019 [facility] Urine Color Yellow [address] [place] [address] [phone] Urine Appearance Clear Urine Specific [place] 1.014 Normal 1.010-1.030 Urine pH 5.0 Normal [...] Present Abnormal Absent Urine Culture And 03/23/2019 [facility] Urine Culture SEE RESULT [address] [place] [address] [phone] 1 Because ethnic data is not always [...] [address]: Joan Friend MD Acct: [id number] Unit: [id number] AGE: 78 Location: [facility] Re03/23/19 SEX: M Status: REG REF SPEC: [id number] MARCE: 03/23/[address] [facility] [address]: Joan Friend MD REQ: [id number] RECD: 03/23/19 STATUS: EDGAR DIAZ DR: Romina Bolden MD _ SOURCE: URINE SPDESC: ORDERED: Urine Culture Procedure Result Reported Site Urine Culture Final 03/24/19- 1615 ML No Growth (<1,000 CFU/mL) * ML - Main Lab . END OF REPORT DEPARTMENT OF PATHOLOGY, [address] [place] [address] Jurgen Mcdonnell M.D. Director [facility] # [id number] Procedures Description No Information Available Medical Devices Description No Information Available Encounters Type Date Location Provider Dx Diagnosis Office Visit 03/25/2019 [facility] Joan Villegas. 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 chronic 8:30a MD Ronna kidney disease w stg 1-4/unsp chr kdny N18.4 Chronic kidney disease, stage 4 (severe) E87.5 Hyperkalemia D64.9 Anemia, unspecified E78.5 Hyperlipidemia, unspecified I10 Essential (primary) hypertension Office Visit 03/13/2019 9:33a [facility] Brendan Blaine, E87.5 Hyperkalemia Assoc,pc [place] Hospitalists B95.2 Enterococcus as the cause of diseases classified elsewhere N39.0 Urinary tract infection, site not specified N18.9 Chronic kidney disease, unspecified I25.10 Athscl heart disease of [place] coronary artery w/o ang pctrs I10 Essential (primary) hypertension E78.5 Hyperlipidemia, unspecified J44.9 Chronic obstructive pulmonary disease, unspecified D64.9 Anemia, unspecified Z86.73 Prsnl hx of TIA (TIA), and cereb infrc w/o resid deficits Office Visit 03/12/2019 9:33a [facility] E87.5 Hyperkalemia Asshortencia,john Baker MD Hospitalists N17.9 Acute kidney failure, unspecified N18.9 Chronic kidney disease, unspecified E87.2 Acidosis E83.42 Hypomagnesemia N40.1 Benign prostatic hyperplasia with lower urinary tract symp N39.0 Urinary tract infection, site not specified Office Visit 03/11/2019 9:28a [facility] E87.5 Hyperkalemia Assjohn burnett MD Hospitalists N17.9 Acute kidney failure, unspecified N18.9 Chronic kidney disease, unspecified E87.2 Acidosis E83.42 Hypomagnesemia N40.1 Benign prostatic hyperplasia with lower urinary tract symp N39.0 Urinary tract infection, site not specified Office Visit 03/10/2019 9:28a [facility] E87.5 Hyperkalemia Asshortencia,john Baker MD Hospitalists N17.9 Acute kidney failure, unspecified N18.9 Chronic kidney disease, unspecified E87.2 Acidosis E83.42 Hypomagnesemia N40.0 Benign prostatic hyperplasia without lower urinry tract symp Office Visit 03/09/2019 9:27a [facility] Juanita E87.5 Hyperkalemia Assoc,pc MD Samuel Hospitalists N17.9 Acute kidney failure, unspecified N18.9 Chronic kidney disease, unspecified E87.2 Acidosis E83.42 Hypomagnesemia Office Visit 03/08/2019 9:23a [facility] Florencia Geiger, E87.5 Hyperkalemia Assoc,john Mcmahan Hospitalists N18.4 Chronic kidney disease, stage 4 (severe) R19.7 Diarrhea, unspecified R82.90 Unspecified abnormal findings in urine I10 Essential (primary) hypertension I25.10 Athscl heart disease of [place] coronary artery w/o ang pctrs N40.1 Benign prostatic hyperplasia with lower urinary tract symp Office Visit 03/07/2019 10:30a [facility] Joan Cruz N18.4 Chronic kidney MD Ronna disease, stage 4 (severe) 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 chronic kidney disease w stg 1-4/unsp chr kdny E87.5 Hyperkalemia E11.9 Type 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 complications J44.9 Chronic obstructive pulmonary disease, unspecified I50.30 Unspecified diastolic (congestive) heart failure I10 Essential (primary) hypertension Office Visit 02/27/2019 9:16a [facility] Brendan N39.0 Urinary tract Assoc,pc JAQUAN Valladares infection, site Hospitalists not specified E87.5 Hyperkalemia D64.9 Anemia, unspecified N17.9 Acute kidney failure, unspecified N18.9 Chronic kidney disease, unspecified N40.1 Benign prostatic hyperplasia with lower urinary tract symp I10 Essential (primary) hypertension E78.5 Hyperlipidemia, unspecified E11.9 Type 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 complications J44.9 Chronic obstructive pulmonary disease, unspecified Office Visit 02/26/2019 9:16a [facility] Brendan N39.0 Urinary tract Assoc,JAQUAN Hazel infection, site Hospitalists not specified N17.9 Acute kidney failure, unspecified N18.9 Chronic kidney disease, unspecified D64.9 Anemia, unspecified I25.10 Athscl heart disease of [place] coronary artery w/o ang pctrs I50.30 Unspecified diastolic (congestive) heart failure I10 Essential (primary) hypertension E87.5 Hyperkalemia E11.9 Type 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 complications Office Visit 02/25/2019 9:15a [facility] Brendan N39.0 Urinary tract Assoc,JAQUAN Hazel infection, site Hospitalists not specified N17.9 Acute kidney failure, unspecified N18.9 Chronic kidney disease, unspecified D64.9 Anemia, unspecified I25.10 Athscl heart disease of [place] coronary artery w/o ang pctrs J44.9 Chronic obstructive pulmonary disease, unspecified I50.30 Unspecified diastolic (congestive) heart failure I10 Essential (primary) hypertension E87.5 Hyperkalemia E11.9 Type 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 complications Office Visit 02/24/2019 9[facility] N[facility] Urinary [facility] Assoc,john Tello M.D. infection, site Hospitalists not specified N17.9 Acute kidney failure, unspecified N18.3 Chronic kidney disease, stage 3 (moderate) I25.10 Athscl heart disease of [place] coronary artery w/o ang pctrs Z72.0 Tobacco use Z95.2 Presence of prosthetic heart valve Office Visit 02/06/2019 9:29a [facility], E87.5 Hyperkalemia Assocjohn M.D. Hospitalists N17.9 Acute kidney failure, unspecified E16.2 Hypoglycemia, unspecified E87.2 Acidosis I10 Essential (primary) hypertension E78.5 Hyperlipidemia, unspecified E11.9 Type 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 complications J44.9 Chronic obstructive pulmonary disease, unspecified D64.9 Anemia, unspecified Office Visit 02/05/2019 9:28a [facility], E87.5 Hyperkalemia Assocjohn M.D. Hospitalists N17.9 Acute kidney failure, unspecified N18.3 Chronic kidney disease, stage 3 (moderate) I10 Essential (primary) hypertension E11.9 Type 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 complications E78.5 Hyperlipidemia, unspecified N40.0 Benign prostatic hyperplasia without lower urinry tract symp Office Visit 02/04/2019 9:28a [facility], E87.5 Hyperkalemia Assjohn burnett M.D. 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 03/08/2019 I25.10 Atherosclerotic heart disease of [place] Florencia Geiger M.D. coronary artery without angina [...] specified JAQUAN Patel 02/27/2019 E87.5 Hyperkalemia Brendan [place], [place] 02/27/2019 D64.9 Anemia, unspecified Brendan Blaine, [place] 02/27/2019 N17.9 Acute kidney failure, unspecified Brendan Austin, [place] 02/27/2019 N18.9 Chronic kidney disease, unspecified Brendan Austin, [place] 02/27/2019 N40.1 Benign prostatic hyperplasia with lower Brendan Austin, [place] urinary tract symptoms 02/27/2019 I10 Essential (primary) hypertension Brendan Austin, [place] 02/27/2019 E78.5 Hyperlipidemia, unspecified Brendan Blaine, [place] 02/27/2019 E11.9 Type 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 Brendan Blaine, [place] complications 02/27/2019 J44.9 Chronic obstructive pulmonary disease, Brendan Austin, [place] unspecified 02/26/2019 N39.0 Urinary tract infection, site not specified Brendan Blaine , [place] 02/26/2019 N17.9 Acute kidney failure, unspecified Brendan Austin, [place] 02/26/2019 N18.9 Chronic kidney disease, unspecified Brendan Blaine, [place] 02/26/2019 D64.9 Anemia, unspecified Brendan Austin, [place] 02/26/2019 I25.10 Atherosclerotic heart disease of [place] Brendan Austin, [place] coronary artery without angina pectoris 02/26/2019 I50.30 Unspecified diastolic (congestive) heart Brendan Manciniber, [place] failure 02/26/2019 I10 Essential (primary) hypertension Brendan Austin, [place] 02/26/2019 E87.5 Hyperkalemia Brendan Austin, [place] 02/26/2019 E11.9 Type 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 Brendan Blaine, [place] complications 02/25/2019 N39.0 Urinary tract infection, site not specified Brendan Blaine , [place] 02/25/2019 N17.9 Acute kidney failure, unspecified Brendan Blaine, [place] 02/25/2019 N18.9 Chronic kidney disease, unspecified Brendan Austin, [place] 02/25/2019 D64.9 Anemia, unspecified Brendan Blaine, [place] 02/25/2019 I25.10 Atherosclerotic heart disease of [place] Brendan Manciniber, [place] coronary artery without angina pectoris 02/25/2019 J44.9 Chronic obstructive pulmonary disease, Brendan Austin, [place] unspecified 02/25/2019 I50.30 Unspecified diastolic (congestive) heart Brendan Manciniber, [place] failure 02/25/2019 I10 Essential (primary) hypertension JAQUAN Patel 02/25/2019 E87.5 Hyperkalemia JAQUAN Patel 02/25/2019 E11.9 Type 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 JAQUAN Patel complications 02/24/2019 N39.0 Urinary tract infection, site not specified Silverio Tello M.D. 02/24/2019 N17.9 Acute kidney failure, unspecified Silverio Tello M.D. 02/24/2019 N18.3 Chronic kidney disease, stage 3 (moderate) Silverio Tello M.D. 02/24/2019 I25.10 Atherosclerotic heart disease of [place] Silverio Tello M.D. coronary artery without angina [...] Cortez Ji M.D. complications 02/05/2019 E78.5 Hyperlipidemia, viniciusified Cortez Ji M.D. 02/05/2019 N40.0 Benign prostatic [...] M.D. respiratory system Plan of Treatment Future Appointment(s):05/04/2019 3:00 pm - Radha Mack M.D. at [facility]05/03/2019 3:30 pm - Joan Friend MD at [facility]/30/2019 - Radha Mack M.D.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, right handNew Labs:Hemoglobin A1c (Glyco HGB), Ordered: 04/20/19Follow up:Follow up: 2 weeks Functional Status Description No Information Available Mental Status Description No Information Available Referrals Description No Information Available
[2019-06-04 11:36] VITALS: BP 121/67
--- NOTE | 2019-06-04 12:01 | UC ---
UC General HPI - HPI Summary HPI Summary: patient started experiencing diarrhea 5 days ago, described as watery and brown. denies travel, now foods, new meds or recent illness no close contacts with same symps. has a good appetite but doesn't want to eat because it causes diarrhea. denies abdominal pain or dysuria he has tried no treatment - History of Current Complaint Chief Complaint: UCGI Stated Complaint: DIARRHEA Time Seen by Provider: 06/04/19 11:44 Hx Obtained From: Patient Onset/Duration: Gradual Onset Onset Severity: Mild Current Severity: Moderate Pain Intensity: 8 Associated Signs & Symptoms: Positive: Diarrhea. Negative: Abdominal Pain, Back Pain, Chest Pain, Fever, Nausea, Vomiting - Allergy/Home Medications Allergies/Adverse Reactions: Allergies Allergy/AdvReac Type Severity Reaction Status Date / Time cephalexin [From Keflex] AdvReac N/V Verified 06/04/19 11:36 Home Medications: Home Medications Colchicine [Mitigare] 1 tab PO DAILY 06/04/19 [History Confirmed 06/04/19] Ferrous Sulfate TAB* 1 tab PO DAILY 06/04/19 [History Confirmed 06/04/19] hydroCHLOROthiazide [Hydrochlorothiazide] 1 dose PO DAILY 06/04/19 [History Confirmed 06/04/19] PMH/Surg Hx/FS Hx/Imm Hx Previously Healthy: Yes Endocrine History: Dyslipidemia Cardiovascular History: Cardiac Disease, Hypertension GI/ History: Other - BPH Other History Of: Anticoagulant Therapy - Surgical History Surgical History: Yes Surgery Procedure, Year, and Place: ABDOMINAL HERNIA REPAIR, skull fracture in the . Aortic valve replacement September. heart transplant - Family History Known Family History: Positive: Cardiac Disease, Hypertension Negative: Diabetes - Social History Occupation: Retired Lives: Alone Alcohol Use: None Alcohol Amount: SOCIAL Substance Use Type: None Substance Use Comment - Amount & Last Used: pt confused; current substance use is unknown, but no known history Smoking Status (MU): Light Every Day Tobacco Smoker Type: Cigars Amount Used/How Often: 1-2 CIGARS/DAY Length of Time of Smoking/Using Tobacco: 57 years Have You Smoked in the Last Year: Yes When Did the Patient Quit Smoking/Using Tobacco: 2014 Household Exposure Type: Cigars Cessation Counseling: Patient Advised to Stop - Immunization History Most Recent Influenza Vaccination: 05/04/2018 Most Recent Tetanus Shot: 2013 Most Recent Pneumonia Vaccination: 05/04/2018 Review of Systems All Other Systems Reviewed And Are Negative: Yes Constitutional: Positive: Negative. Negative: Fever, Chills Skin: Positive: Negative Respiratory: Positive: Negative Cardiovascular: Positive: Negative Gastrointestinal: Positive: Diarrhea Genitourinary: Positive: Negative. Negative: Hematuria, Frequency Neurological: Positive: Negative Psychological: Positive: Negative Is Patient Immunocompromised?: No Physical Exam Triage Information Reviewed: Yes Appearance: Well-Appearing, No Pain Distress, Well-Nourished Vital Signs: Initial Vital Signs Temp 99.3 F 06/04/19 11:30 Pulse 63 06/04/19 11:30 Resp 18 06/04/19 11:30 BP 121/67 06/04/19 11:30 Pulse Ox 100 06/04/19 11:30 Vital Signs Reviewed: Yes Respiratory Exam: Normal Respiratory: Positive: Lungs clear Cardiovascular Exam: Normal Cardiovascular: Positive: RRR Abdominal Exam: Normal Abdomen Description: Positive: Nontender, No Organomegaly, Soft. Negative: CVA Tenderness (R), CVA Tenderness (L), Distended, Guarding Bowel Sounds: Positive: Present Neurological Exam: Normal Neurological: Positive: Alert Psychological Exam: Normal Skin Exam: Normal Skin: Negative: Rashes Course/Dx - Course Course Of Treatment: Patient refuses stool sample for occult blood and culture. Patient given the option to collect stool at home and bring it back if he prefers, but he refuses this too. he requests advice on OTC meds to help diarrhea. I discussed with patient that immodium is not recommended until stool testing done incase he has acute infection that may worsen with retained stool - Differential Dx - Multi-Symptom Differential Diagnoses: Urinary Tract Infection, Other - dehydration, diarrhea, diverticulitis, appendicitis - Diagnoses Provider Diagnosis: Diarrhea Discharge ED - Sign-Out/Discharge Documenting (check all that apply): Patient Departure All imaging exams completed and their final reports reviewed: No Studies - Discharge Plan Condition: Good Disposition: HOME Patient Education Materials: Acute Diarrhea (ED) Referrals: Romina Bolden MD [Primary Care Provider] - 2 Days (if no better) Additional Instructions: try over the counter Kaopectate as directed also try eating white rice and bananas make sure you drink plenty of fluids Please return if you change your mind about collecting a stool sample for testing also: report to emergency room if your symptoms worsen at any time - Billing Disposition and Condition Condition: GOOD Disposition: Home
== END 2019-06-04 12:10 | disposition home or self-care (01) ==
LOC: UCEAST 11:21
DX: R19.7 Diarrhea, unspecified (principal); I10 Essential (primary) hypertension; F17.290 Nicotine dependence, other tobacco product, uncomplicated; Z88.1 Allergy status to other antibiotic agents; Z79.899 Other long term (current) drug therapy
CPT/HCPCS: 99211; G0463

== ENCOUNTER 2019-06-10 21:14 | Inpatient (IN) | payer BC ==
--- NOTE | 2019-06-10 21:29 | ED ---
Neurological HPI - HPI Summary HPI Summary: This patient is a 79 year old male presenting to [facility] with a chief complaint of seizures. He states he had a seizure for 30-40 seconds with a short post- ictal period. The seizure was a full body grand mal. EMS states this was his first seizure. He has been experiencing diarrhea for a week. He reports palpitations earlier today. He has a Hx of chronic renal failure, MO, TIA. He states he has a clonic jerk on his right side that started today. - History of Current Complaint Stated Complaint: SEIZURE PER EMS Time Seen by Provider: 06/10/19 21:23 Hx Obtained From: Patient Onset/Duration: Started hours ago, Started weeks ago - Additional Pertinent History Primary Care Physician: [id number] - Allergy/Home Medications Allergies/Adverse Reactions: Allergies Allergy/AdvReac Type Severity Reaction Status Date / Time cephalexin [From Keflex] AdvReac N/V Verified 06/04/19 11:36 PMH/Surg Hx/FS Hx/Imm Hx Endocrine/Hematology History: Reports: Hx Anticoagulant Therapy, Hx Blood Transfusions, Hx Diabetes Denies: Hx Thyroid Disease, Hx Unexplained Bleeding Cardiovascular History: Reports: Hx Angina, Hx Congestive Heart Failure, Hx Coronary Artery Disease, Hx Hypercholesterolemia, Hx Hypertension, Hx Myocardial Infarction, Hx Valvular Heart Disease - aortic valve replacement, Other Cardiovascular Problems/Disorders - AORTIC STENOSIS Denies: Hx Auto Implanted Cardiovert Defib, Hx Congenital Heart Disease, Hx Pacemaker/ICD, Hx Syncope Respiratory History: Reports: Hx Asthma, Hx Chronic Obstructive Pulmonary Disease (COPD), Hx Sleep Apnea - pt states he doesn't wear CPAP anymore Comment Only: Other Respiratory Problems/Disorders - SOB GI History: Denies: Hx Ulcer Comment Only: Other GI Disorders - HERNIA REPAIR History: Reports: Hx Benign Prostatic Hyperplasia, Hx Chronic Renal Failure - CKD stage 3, Hx Renal Disease - RENAL FUNCTION DUE TO DIABETES, Other Problems/Disorders - chronic renal insufficiency Denies: Hx Dialysis Musculoskeletal History: Reports: Hx Back Problems, Hx Gout, Other Musculoskeletal History - leg and foot cramps Denies: Hx Arthritis, Hx Osteoporosis Sensory History: Reports: Hx Contacts or Glasses Denies: Hx Cataracts, Hx Eye Injury, Hx Glaucoma, Hx Deafness, Hx Hearing Aid , Hx Hearing Problem Opthamlomology History: Reports: Hx Contacts or Glasses Denies: Hx Cataracts, Hx Eye Injury, Hx Glaucoma Neurological History: Reports: Hx Transient Ischemic Attacks (TIA) Denies: Hx Dementia, Hx Developmental Delay, Hx Migraine, Hx Seizures, Hx Spinal Cord Injury Psychiatric History: Reports: Hx Anxiety Denies: Hx Attention Deficit Hyperactivity Disorder, Hx Eating Disorder, Hx Depression, Hx Panic Disorder, Hx Post Traumatic Stress Disorder, Hx Inpatient Treatment, Hx Community Mental Health Tx, Hx Schizophrenia, Hx Bipolar Disorder , Hx Suicide Attempt, Hx of Violent Episodes Against Others, Hx Substance Abuse , Other Psychiatric Issues/Disorders - Surgical History Surgery Procedure, Year, and Place: ABDOMINAL HERNIA REPAIR, skull fracture in the . Aortic valve replacement September. heart transplant Hx Anesthesia Reactions: No - Immunization History Date of Tetanus Vaccine: unknown Date of Influenza Vaccine: None Infectious Disease History: Denies: Hx Clostridium Difficile, Hx Hepatitis, Hx Human Immunodeficiency Virus (HIV), Hx of Known/Suspected MRSA, Hx Shingles, Hx Tuberculosis, Hx Known/ Suspected VRE, Hx Known/Suspected VRSA, History Other Infectious Disease - Family History Known Family History: Positive: Cardiac Disease, Hypertension Negative: Diabetes - Social History Alcohol Use: None Alcohol Amount: SOCIAL Hx Substance Use: No Substance Use Type: Reports: None Substance Use Comment - Amount & Last Used: pt confused; current substance use is unknown, but no known history Hx Tobacco Use: Yes Smoking Status (MU): Light Every Day Tobacco Smoker Type: Cigars Amount Used/How Often: 1-2 CIGARS/DAY Length of Time of Smoking/Using Tobacco: 57 years Have You Smoked in the Last Year: Yes Review of Systems Positive: Palpitations Positive: Diarrhea Neurological: Other - Seizure, monoclonic jerk All Other Systems Reviewed And Are Negative: Yes Physical Exam - Summary Physical Exam Summary: Constitutional: Well-developed, Well-nourished, Alert. (-) Distressed Skin: Warm, Dry HENT: Normocephalic; Atraumatic. Tongue bite along the right lateral aspect. Eyes: Conjunctiva normal Neck: Musculoskeletal ROM normal neck. (-) JVD, (-) Stridor, (-) Tracheal deviation Cardio: Rhythm regular, rate normal, Heart sounds normal; Intact distal pulses; The pedal pulses are 2+ and symmetric. Radial pulses are 2+ and symmetric. (-) Murmur Pulmonary/Chest wall: Effort normal. (-) Respiratory distress, (-) Wheezes, (-) Rales Abd: Soft, (-) tenderness, (-) Distension, (-) Guarding, (-) Rebound Musculoskeletal: (-) Edema Lymph: (-) Cervical adenopathy Neuro: Alert, Oriented x3. Strength normal, Cranial nerves II-XII are grossly intact. (-) Dysmetria, (-) Nystagmus, (-) Ataxia by finger to nose testing, (-) Sensory deficit. Intermittent clonic episodes. No focal deficits. Psych: Mood and affect Normal Triage Information Reviewed: Yes Vital Signs Reviewed: Yes Procedures - Sedation Patient Received Moderate/Deep Sedation with Procedure: No Diagnostics - Laboratory Result Diagrams: 06/11/19 02:13 06/11/19 02:13 Lab Statement: Any lab studies that have been ordered have been reviewed, and results considered in the medical decision making process. - EKG No standard instances Cardiac Rate: NL EKG Rhythm: Sinus Rhythm ST Segment: Normal Ectopy: None Re-Evaluation - Re-Evaluation First Eval Re-Evaluation Time: 00:50 Change: Unchanged Comment: Lab reveals low calcium levels at 6.3. I gave him 2g calcium and IV fluids. Course/Dx - Course Course Of Treatment: This patient is a 79 year old male presenting to [facility] with a chief complaint of seizures. Patient will be signed out to Dr. Lund at shift change 2200 pending work-up. - Diagnoses Provider Diagnoses: Seizure, Dehydration, Diarrhea, Hypocalcemia Discharge ED - Sign-Out/Discharge Documenting (check all that apply): Sign-Out Patient Signing out patient TO: Cindy Lund - At shift change 2200 pending work-up - Discharge Plan Condition: Stable Disposition: ADMITTED TO [facility] - Billing Disposition and Condition Condition: STABLE Disposition: Admitted to [facility] - Attestation Statements Document Initiated by Scribe: Yes Documenting Scribe: Cortez Chino Provider For Whom Scribe is Documenting (Include Credential): Rashaad Jones DO Scribe Attestation: Cortez Núñez scribed for Rashaad Jones DO on 06/11/19 at 1025. Scribe Documentation Reviewed: Yes Provider Attestation: The documentation as recorded by the Cortez camargo accurately reflects the service I personally performed and the decisions made by , Rashaad Jones DO Status of Scribe Document: Viewed
[2019-06-10] MEDS ORDERED: NS 0.9% 1000 ML** 1,000 ML IV ONE ×2 (21:30→22:12)
[2019-06-10] MEDS ORDERED: LORazepam INJ* 2 MG/ML 1 ML VIAL IV PUSH ONE (21:44)
[2019-06-10] MEDS ORDERED: Lorazepam PYXIS KEY PRN (21:44)
[2019-06-10 21:50] LABS: ABS Basophils 0.1 10^3/ul (0-0.2); ABS Eosinophils 0.2 10^3/ul (0-0.6); ABS Monocytes 0.6 10^3/ul (0-0.8); ABS Neutrophils 4.4 10^3/ul (1.5-7.7); Eosinophil % 3.4 %; Hematocrit 29 % (42-52); Hemoglobin 9.5 g/dL (14.0-18.0); Lymphocyte % 16.6 %; Mean Corpuscular HGB Conc 33 g/dL (31-36); Mean Corpuscular Hemoglobin 29 pg (27-31); Mean Corpuscular Volume 88 fL (80-94); Platelet Count 190 10^3/uL (150-450); Red Blood Count 3.23 10^6 /uL (4.18-5.48); Red Cell Distribution Width 17 % (10-15); White Blood Count 6.2 10^3/uL (3.5-10.8)
[2019-06-10] MEDS ORDERED: Lorazepam PYXIS KEY ONE (21:50)
[2019-06-10 21:55] LABS: INR 1.06 (0.82-1.09)
[2019-06-10 22:06] LABS: Albumin 3.8 g/dL (3.2-5.2); Albumin/Globulin Ratio 1.4 (1-3); BUN/Creatinine Ratio 12.2 (8-20); Calcium 6.5 mg/dL (8.6-10.3); EGFR African American 7.9 (>60); EGFR Non-African American 6.5 (>60); Globulin 2.7 g/dL (2-4); Magnesium 1.5 mg/dL (1.9-2.7); Total Bilirubin 0.4 mg/dL (0.2-1.0); Total Protein 6.5 g/dL (6.4-8.9)
[2019-06-10 22:15] LABS: Potassium 5.6 mmol/L (3.5-5.0)
--- NOTE | 2019-06-10 22:35 | ED ---
Progress - Progress Note Progress Note: Patient is a sign out from Dr. Jones to Dr. Lund at end of shift at 2200 on 06/10/19, pending work up and disposition. Re-Evaluation - Re-Evaluation First Eval Re-Evaluation Time: 00:50 Change: Unchanged Comment: Lab reveals low calcium levels at 6.3. I gave him 2g calcium and IV fluids. Course/Dx - Course Course Of Treatment: This patient is a 79 year old male presenting to [facility] with a chief complaint of seizures. Patient will be signed out to Dr. Lund at shift change 2200 pending work-up. - Diagnoses Provider Diagnoses: Seizure, Dehydration, Diarrhea, Hypocalcemia - Provider Notifications Discussed Care Of Patient With: Divina Hastings - Hospitalist Time Discussed With Above Provider: 00:49 Instructed by Provider To: Admit As Inpatient - Dr. Hastings accepts this patient for admission. Admit/Transition Orders Completed By ED Provider: Yes Discharge ED - Sign-Out/Discharge Documenting (check all that apply): Patient Departure - admit, Receiving Sign- Out Receiving patient FROM: Chandan Jones - Patient is a sign out from Dr. oJnes to Dr. Lund at end of shift at 2200 on 06/10/19 - Discharge Plan Condition: Stable Disposition: ADMITTED TO [facility] - Billing Disposition and Condition Condition: STABLE Disposition: Admitted to [facility] - Attestation Statements Document Initiated by Scribe: Yes Documenting Scribe: Vignesh Orozco Provider For Whom Clive is Documenting (Include Credential): Cindy Lund MD. Scribe Attestation: I, don Mccrayed for Cindy Lund MD. on 06/14/19 at 2001. Scribe Documentation Reviewed: Yes Provider Attestation: The documentation as recorded by the simónibeVignesh accurately reflects the service I personally performed and the decisions made by me, Cindy Lund MD. Status of Scribe Document: Viewed
--- OUTSIDE RECORDS SUMMARY | 2019-06-10 22:52 | XMS REPORT | Summary of Care ---
:1940 Author Organization [facility] Address [address] [facility] [place] [address] Care Team Providers Name Role Phone Romina Bolden MD Primary Care Provider Marcela Donnelly MD Primary Healthcare Marketer/Solar Installation Manager Reason for Visit Reason Comments Diarrhea c/o increase diarrhea for over a week, denies any discomfort or cramping. Not eating as well. 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 Muscle spasm [address] [facility] [address] [place], [place] [id number] [place] [address] [phone] Allergies Active Allergy Reactions Severity Noted Date Comments Diego Inhibitors Other 12/09/2017 Elevated potassium CKD Keflex GI Reaction 07/24/2011 Lisinopril Other 02/14/2019 Very high potassium Losartan Other 12/09/2017 Elevated potassium, chronic kidney disease Nsaids Other 04/13/2018 CKD documented as of this encounter (statuses as of 06/10/2019) Medications Medication Sig Dispensed Refills Start End [...] COPD type (HCC) FREESTYLE INSULINX TEST USE 100 Each 11 [...] TabIndications: OTHER DAY. COPD with acute bronchitis (HCC) Tiotropium Take 2 INHL by 1 Inhaler 5 08/27/19 Active [place]-Olodaterol inhalation 19 (STIOLTO RESPIMAT) DAILY. 2.5-2.5 MCG/ACT Inhalation Aero Soln atorvastatin (LIPITOR) TAKE ONE 30 Tab 5 10/26/19 Active 80 MG Oral TABLET BY 19 TabIndications: Mixed MOUTH ONCE hyperlipidemia DAILY finasteride (PROSCAR) 5 TAKE ONE 90 Tab [...] DAILY. 19 Oral CapIndications: Essential hypertension, benign Magnesium 250 MG Oral Take 1 Tab by 90 Tab 3 02/16/20 Active TabIndications: Low mouth DAILY. 19 magnesium level Darifenacin TAKE ONE 30 Tab 3 02/18/20 Active Hydrobromide 15 MG Oral TABLET BY 19 TABLET SR 24 HR MOUTH ONCE DAILY sodium bicarbonate 650 Take 1,300 mg 0 Active MG Oral Tab by mouth THREE TIMES DAILY. Tamsulosin HCl (FLOMAX) Take 0.4 mg by 0 Active 0.4 MG Oral Cap mouth DAILY. fluticasone (FLONASE Kane 2 Sprays 1 Bottle 3 03/28/20 Active ALLERGY RELIEF) 50 in nose DAILY. 19 MCG/ACT Nasal SuspensionIndications: Allergic rhinitis, unspecified seasonality, unspecified trigger Mirabegron ER 50 MG Take 50 mg by 30 Tab 3 04/02/20 Active Oral TABLET SR 24 HR mouth DAILY. 19 Colchicine 0.6 MG Oral Take 0.6 mg by 30 Cap 0 04/27/20 Active CapIndications: Gout of mouth DAILY. 19 right hand, unspecified cause, unspecified chronicity Tizanidine 2 MG Oral Take 2 mg by 30 Tab 1 06/10/20 Active TabIndications: Muscle mouth EVERY 19 spasm BEDTIME NEEDED (muscle cramps). Tizanidine 2 MG Oral Take 2 mg by 30 Tab 5 03/19/20 Discontinued TabIndications: Muscle mouth EVERY 19 019 (Reorder) spasm BEDTIME NEEDED (muscle cramps). documented as of this encounter (statuses as of 06/10/2019) Active Problems Problem Noted Date Type 2 diabetes mellitus with stage 4 chronic kidney disease, without 2018 long-term current use of insulin Trochanteric bursitis of both hips 09/17/2017 Hip pain, bilateral 08/07/2017 Coronary artery disease involving [place] coronary artery of [place] heart 01/15 without angina pectoris Type 2 diabetes mellitus with stage 4 chronic kidney disease 01/16/2016 Gross hematuria 08/03/2015 Elevated prostate specific antigen (PSA) 08/03/2015 CAD (coronary artery disease) 11/07/2014 Overview: CABG September 2014 Hx of CABG 06/22/2014 Overview: Dr.Lynn Bell is his gunner's mate m Obesity, unspecified 06/10/2012 Overview: BMI 31 This [...] CABG September 2014, [facility]. Catrachito Casas at [facility] in [place] S/P AVR (aortic valve replacement) HTN (hypertension) Gout Sleep apnea Overview: never followed up on sleep study, agrees to set this up today 01/16/16 documented as of this encounter (statuses as of 06/10/2019) Resolved Problems Problem Noted Date Resolved Date Septicemia due to Enterobacter species 11/13/2017 07/01/2018 Type 2 diabetes mellitus with stage 4 chronic kidney 09/11/2016 03/12/2018 disease, with long-term current use of insulin Hyperkalemia 10/31/2011 07/31/2017 Overview: Due to renal disease Potassium Level 5.8-6 2011 Diabetes mellitus 03/12/2018 documented as of this encounter (statuses as of 06/10/2019) Immunizations Name Administration Dates Next Due Influenza (IM) Preservative Free 06/06/2013, 04/12/2012 Influenza [...] Sign Reading Time Taken Comments Blood Pressure 137/78 06/10/2019 8:11 AM EST Pulse 76 06/10/2019 8:11 AM EST Temperature 36.4 06/10/2019 8:11 AM EST C (97.5 F) Respiratory Rate - - Oxygen Saturation 99% 06/10/2019 8:11 AM EST Inhaled Oxygen Concentration - - Weight 75.8 kg (167 lb) 06/10/2019 8:11 AM EST Height 170.2 cm (5' 7") 06/10/2019 8:11 AM EST Body Mass Index 26.16 06/10/2019 8:11 AM EST documented in this encounter Patient Instructions Patient InstructionsYumiko Osman FNP - 06/10/2019 8:20 AM ESTCan try Metamucil daily to slow bowel Avoid caffeine Schedule appointment with Dr Bolden documented in this encounter Progress Notes Yumiko Osman FNP - 06/10/2019 8:20 AM EST PATIENT: Kamar Segura : 1940 DATE OF SERVICE: 06/10/2019 CHIEF COMPLAINT: Chief Complaint Patient presents with Diarrhea c/o increase diarrhea for over a week, denies any discomfort or cramping. Not eating as well. Medication Refill pending Subjective HISTORY OF PRESENT ILLNESS: Kamar Segura is a 79-y.o. male. HPI Diarrhea for past week - used Kaopectate daily. Having diarrhea only in AM. No abdominal pain, no wtloss. Needs refill of muscle relaxer - takes at bedtime Past Medical History: Diagnosis Date Aortic stenosis [...] of CABG 2014 Dr.Lynn Bell is his gunner's mate m S/P AVR (aortic valve replacement) Sleep apnea never followed up on sleep study, agrees to set this up today 01/16/16 VHD (valvular heart disease) 2014 aortic valve replacement, equine No family history on file. Current Outpatient Medications Medication Sig albuterol HFA (VENTOLIN) 108 (90 Base) MCG/ACT Inhalation Aero Soln Take 2 Puffs by inhalation EVERY SIX HOURS NEEDED (wheezing). amLodipine (NORVASC) 5 MG Oral Tab Take 1 Tab by mouth DAILY. New lower dose Aspirin 81 MG Oral Tab EC Take 1 Tab by mouth DAILY. atorvastatin (LIPITOR) 80 MG Oral Tab TAKE ONE TABLET BY MOUTH ONCE DAILY bimatoprost (LUMIGAN) 0.03 % Ophthalmic Solution Place 1 Drop in both eyes EVERY BEDTIME. 1 drop both eyes Blood Glucose Monitoring Suppl (BLOOD GLUCOSE METER) Does not apply Kit by Does not apply route. 1. Brand:Freestyle Insulinx 2. Dx:E11.9 3. Insulin dependent 4. Test Blood Glucose 4 time(s) A DAY ----before meals & at bedtime Brinzolamide-Brimonidine (SIMBRINZA) 1-0.2 % Ophthalmic Suspension Place 1 Drop to the external eye THREE TIMES DAILY. Left eye Colchicine 0.6 MG Oral Cap Take 0.6 mg by mouth DAILY. Cyanocobalamin (VITAMIN B-12) [address] Tab [address] 1 Tab under tongue DAILY. Darifenacin Hydrobromide 15 MG Oral TABLET SR 24 HR TAKE ONE TABLET BY MOUTH ONCE DAILY Doxercalciferol (HECTOROL) 0.5 MCG Oral Cap Take by mouth. finasteride (PROSCAR) 5 MG Oral Tab TAKE ONE TABLET BY MOUTH ONCE DAILY fluticasone (FLONASE ALLERGY RELIEF) 50 MCG/ACT Nasal Suspension Kane 2 Sprays in nose DAILY. FREESTYLE INSULINX TEST In Vitro Strip USE DIRECTED THREE TIMES A DAY hydrochlorothiazide (HCTZ, ORETIC) 12.5 MG Oral Cap Take 1 Cap by mouth DAILY. loratadine (CLARITIN,ALAVERT) 10 MG Oral Tab Take 1 Tab by mouth EVERY OTHER DAY. Magnesium 250 MG Oral Tab Take 1 Tab by mouth DAILY. Mirabegron ER 50 MG Oral TABLET SR 24 HR Take 50 mg by mouth DAILY. patiromer (VELTASSA) 8.4 g Oral Pack Take 8.4 g by mouth DAILY NEEDED (hyperkalemia). Polyethylene Glycol 3350 (MIRALAX PO) Take 17 g by mouth DAILY NEEDED (constipation). Polyvinyl Alcohol-Povidone (REFRESH OP) Place to the external eye. sodium bicarbonate 650 MG Oral Tab Take 1,300 mg by mouth THREE TIMES DAILY. Tamsulosin HCl (FLOMAX) 0.4 MG Oral Cap Take 0.4 mg by mouth DAILY. tiotropium (SPIRIVA HANDIHALER) 18 MCG Inhalation Cap Take 18 mcg by inhalation DAILY. Tiotropium [place]-Olodaterol (STIOLTO RESPIMAT) 2.5-2.5 MCG/ACT Inhalation Aero Soln Take 2 INHL by inhalation DAILY. Tizanidine 2 MG Oral Tab Take 2 mg by mouth EVERY BEDTIME NEEDED ( muscle cramps). No current facility-administered medications for this visit. Allergies Allergen Reactions Diego Inhibitors Other Elevated [...] Financial resource strain: Not on file Food insecurity Worry: Not on file Inability: Not on file Transportation needs Medical: Not on file Non-medical: Not on file Tobacco Use Smoking status: Current Some Day Smoker Packs/day: 2.00 Years: 45.00 Pack years: 90.00 Types: Cigars Last attempt to quit: 06/22/2017 Years since quittin.9 Smokeless tobacco: Never Used Substance and Sexual Activity Alcohol use: No Drug use: No Sexual activity: Yes Partners: Female Lifestyle Physical activity Days per week: Not on file Minutes per session: Not on file Stress: Not on file Relationships Social connections Talks on phone: Not on file Gets together: Not on file Attends baptist service: Not on file Active member of club or organization: Not on file Attends meetings of clubs or organizations: Not on file Relationship status: Not on file Intimate partner violence Fear of current or ex partner: Not [...] History Narrative Lives in [facility],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 REVIEW OF SYSTEMS: Review of Systems Constitutional: Negative for chills, fever and malaise/fatigue. Gastrointestinal: Positive for diarrhea. Negative for abdominal pain, blood in stool, constipation, nausea and vomiting. Musculoskeletal: Positive for myalgias. Objective PHYSICAL EXAM: VITALS: BP 137/78 | Pulse 76 | Temp 97.5 F (36.4 C) | Ht 5' 7" ( 1.702 m) | Wt 167 lb (75.8 kg) | SpO2 99% | BMI 26.16 kg/m Body mass index is 26.16 kg/m. Physical Exam Vitals signs and nursing note reviewed. Constitutional: Appearance: He is obese. He is not diaphoretic. Comments: Pt drinking coffee with creamer in exam room HENT: Head: Normocephalic and atraumatic. Nose: Nose normal. Mouth/Throat: Mouth: Mucous membranes are moist. Pharynx: Oropharynx is clear. Eyes: Conjunctiva/sclera: Conjunctivae normal. Pupils: Pupils are equal, round, and reactive to light. Neck: Musculoskeletal: Normal range of motion. No neck rigidity. Cardiovascular: Rate and Rhythm: Normal rate and regular rhythm. Pulmonary: Effort: Pulmonary effort is normal. Breath sounds: Normal breath sounds. Abdominal: General: Bowel sounds are increased. There is no distension. Palpations: Abdomen is soft. Tenderness: There is no abdominal tenderness. There is no guarding or rebound. Lymphadenopathy: Cervical: No cervical adenopathy. Skin: General: Skin is warm and dry. Capillary Refill: Capillary refill takes 2 to 3 seconds. Coloration: Skin is not pale. Neurological: Mental Status: He is alert and oriented to person, place, and time. Cranial Nerves: Cranial nerves are intact. Comments: Slow gait Psychiatric: Behavior: Behavior is cooperative. ASSESSMENT / IMPRESSION: ICD-9-CM ICD-10-CM 1. Bowel trouble 569.9 K63.9 2. Muscle spasm 728.85 M62.838 Tizanidine 2 MG Oral Tab Plan Can try Metamucil daily to slow bowel Avoid caffeine Schedule appointment with Dr Bolden Rx sent to pharmacy Author: JONO Estrada 06/10/2019 08:29 documented in this encounter Plan of Treatment Date Type Specialty Care Team Description 06/13/2019 Office Visit Family Practice Romina Bolden MD [address] [place] [address] [phone] Health Maintenance Due Date Last Done Comments DTaP/Tdap/Td Vaccines (1 - 1953 Tdap) ZOSTER IMMUNIZATION SERIES 1992 (1 of 2) DEPRESSION SCREENING 07/23/2019 07/23/2018 FOOT EXAM 07/23/2019 07/23/2018, 07/23/2018, 07/23/2018, Additional history exists HEMOGLOBIN A1C 09/14/2019 03/16/2019, 01/03/2019, 08/11/2018, Additional history exists LUNG CANCER SCREENING 01/12/2020 01/11/2019, 01/11/2019, 01/05/2019, Additional history exists FALL RISK ASSESSMENT 02/15/2020 02/14/2019, 02/14/2019 Diabetic Eye Exam 09/23/2020 09/23/2018, 09/23/2018, 04/05/2018, Additional history exists HIV SCREENING Completed 10/15/2015 PNEUMOCOCCAL 65+YRS Completed 05/19/2017, 03/06/2014 INFLUENZA VACCINE Completed 03/28/2019, 05/04/2018, 03/24/2017, Additional history exists HEPATITIS A IMMUNIZATION Aged Out No longer eligible SERIES based on patient's age to complete this topic HPV IMMUNIZATION SERIES Aged Out No longer eligible based on patient's age to complete this topic MENINGOCOCCAL VACCINE IMM Aged Out No longer eligible based on patient's age to complete this topic documented as of this encounter Goals Goal Patient Goal Associated Recent Patient-Stated? Author Type Problems Progress Blood Pressure Blood 137/78 No Yuan, < 140/90 Pressure (06/10/2019 Romina Kaur, 8:11 AM ESTBrennen GARCIA Note: This is an individualized treatment [...] is an individualized lifestyle goal for Kamar Segrua: Please be sure to keep up-to-date on [...] filedocumented in this encounter Visit Diagnoses Diagnosis Muscle spasm Spasm of muscle Bowel trouble Unspecified disorder of intestine documented in this encounter Insurance Payer Benefit Plan / Subscriber ID Effective Dates Phone Address Type Group LARA GOODMAN xxxxxxxxxxxx 2016-Present [employer] Guarant[employer] Name Account Type Relation to Date of Phone Billing Patient Address Kamar Segura Personal/Family 1940 479/ [address] (Home) [address] [phone] [place] [address] (Work) documented as of this encounter
[2019-06-10 23:04] LABS: Urine Appearance Clear; Urine Bilirubin Negative (Negative); Urine Blood 1+ (Negative); Urine Color Straw; Urine Glucose Negative (Negative); Urine Ketones Negative (Negative); Urine Nitrite Negative (Negative); Urine Protein 1+(30 mg/dL) (Negative); Urine Urobilinogen Negative (Negative)
[2019-06-10 23:18] LABS: Urine Bacteria Absent (Absent); Urine Red Blood Cell 1+(3-5/hpf) (Absent); Urine Squamous Epithelial Cell Present (Absent); Urine White Blood Cell Trace(0-5/hpf) (Absent)
[2019-06-11] MEDS ORDERED: CALCIUM GLUCONATE* 1 GM/10 ML VIAL (in Pyxis) IVPB ONE (00:45)
[2019-06-11] MEDS ORDERED: Calcium Gluconate INJ* 2 GM in NS 0.9% 100 ML* 100 ML IV ONE (01:00)
[2019-06-11] MEDS ORDERED: Magnesium Sulfate 2 GM IV* 2 GM/50 ML BAG IVPB ONE (01:57)
[2019-06-11] MEDS ORDERED: NS 0.9% IVPB ONE (02:20)
[2019-06-11] MEDS ORDERED: Calcium Gluconate INJ* 2 GM in NS 0.9% 100 ML* 100 ML IVPB ONE (02:20)
[2019-06-11] MEDS ORDERED: CALCIUM GLUCONATE IVPB ONE (02:20)
[2019-06-11 02:22] LABS: Hematocrit 26 % (42-52); Hemoglobin 8.8 g/dL (14.0-18.0); Mean Corpuscular HGB Conc 34 g/dL (31-36); Mean Corpuscular Hemoglobin 30 pg (27-31); Mean Corpuscular Volume 90 fL (80-94); Mean Platelet Volume 7.5 fL (7.4-10.4); Platelet Count 176 10^3/uL (150-450); Red Blood Count 2.91 10^6 /uL (4.18-5.48); Red Cell Distribution Width 17 % (10-15); White Blood Count 6.5 10^3/uL (3.5-10.8)
[2019-06-11 02:57] LABS: BUN/Creatinine Ratio 11.9 (8-20); EGFR African American 8.5 (>60); Potassium 4.9 mmol/L (3.5-5.0)
[2019-06-11 02:59] LABS: Calcium 6.3 mg/dL (8.6-10.3)
[2019-06-11] MEDS: NS 0.9% 1000 ML** 1,000 ML IV SCH ×2 (04:20→12:05)
--- NOTE | 2019-06-11 04:26 | ADMNOTE ---
Subjective Interval History: this is H/P 79 yo male with hx of CKD who came in with new seizures. Pt has been having diarrhea all week. Today he started experiencing random jerking movement of his EXTs with tremors. He maintained consciousness while his whole body started shaking for what he says was approx 30 secs. He called the EMS. En route to the ED, He had another tonic clonic seizures. No more since. Pt is post-ictal now but able to have a conversation and recalls a little bit what happened. His vitals are stable. He received 1 mg of ativan in the ED. His initial labs show acute renal failure and severe hypocalcemia. No neurological complaints. He was given multiple boluses of fluids and started voiding. He refused a stanley. Family History: Unchanged from Admission Social History: Unchanged from Admission Past Medical History: Unchanged from Admission Review of Systems - Measurements Intake and Output: Intake and Output Last 24 Hours 06/08/19 06/09/19 06/10/19 06/11/19 06:59 06:59 06:59 06:59 Intake Total 2100 Output Total 325 Balance 1775 Weight 165 lb Intake: IV Fluids 2100 Output: Urine 325 - Review of Systems Constitutional Symptoms: Positive: Fatigue Negative: Weight Gain, Weight Loss, Weakness, Fever, Night Sweats, Unexplained Falls, Other Dermatology: Negative: Normal, Rash, Skin Lesions, Cancer, Skin Lumps, Other HEENT: Negative: Normal, Change in Hearing, Vertigo, Dental Problems, Tinnitus, Sinus Problem, Other Eyes: Negative: Normal, Change in Vision, Double Vision, Eye Pain, Glaucoma, Cataract, Contacts or Glasses, Other Thyroid: Negative: Normal, Goiter, Thyroid Nodule, Cold Intolerance, Heat Intolerance , Sweatiness, Tremor, Frequent Defecation, Constipation, Palpitations, Primary Hypothyroidism, Primary Hyperthyroidism, Weight Loss, Weight Gain, Change in Skin/Hair, Change in Menstruation, Radiation Exposure, Other Pulmonary: Negative: Normal, Cough, Sputum, Hemoptysis, Wheezing, Respiratory Distress, Shortness of Breath, COPD, Asthma, Exercise Intolerance, Home Oxygen, Other Cardiology: Negative: Normal, Chest Pain, Shortness of Breath, Palpitations, Swelling of Ankles, Peripheral Vascular Dis, Edema, Faintness, Syncope, Claudication, Proximal NocturnalDyspnea, Orthopnoea, Other Gastroenterology: Positive: Nausea, Vomiting, Diarrhea, Change in Bowel Habits Negative: Normal, Abdominal Pain, Anorexia, Indigestion, Difficulty Swallowing, Heartburn, Constipation, Blood in Stools, Haematemesis, Melena, Other Genital - Urinary: Negative: Normal, Dysuria, Hematuria, Polyuria, Nocturia, Other Endocrinology: Negative: Normal, Thyroid Problems, Adrenal Problems, Gonadal Problems, Family Hx Endocrine Disorders, Obesity, Diabetes Mellitus, Hyperglycemia, Hx Hypoglycemia, Diabetic Foot Ulcers, Calluses, Hirsutism, Menstrual Abnormalities , Polydipsia, Polyuria, Gonadal Problems, Gynecomastia, Pituitary disease, Other Hematologic/Lymphatic: Negative: Anemia, Easy Bruising, Hx Leukemia, Hx Lymphoma, Use of Anticoagulant, Use of Antiplatelet Drugs, Other Neurology: Negative: Normal, Headache, Migraines, Change in Vision, Diplopia, Dizziness , Change in Balancing, Change in Coordination, Change in Memory, Change in Speech, Change in Sphincter Function, Change in Walking, Numbness\Paresthesiae, Unexplained Weakness, Hx of Stroke\TIA, Hx of Seizures, Other Psychiatry: Negative: Normal, Depression, Anxiety, Depressed Mood, Anhedonia, Sexual Dysfunction, Weight Change, Guilt Feelings, Tearfulness, Unusual Fatigue, Unusual Anxiety, Suicidal Ideation, Hypomania, Eating Disorders, Other Objective Active Medications: Amlodipine Besylate (Norvasc Tab*) 10 mg PO DAILY REPLACED BY [facility] Aspirin (Aspirin Ec Tab*) 81 mg PO DAILY REPLACED BY [facility] Atorvastatin Calcium (Lipitor*) 80 mg PO DAILY REPLACED BY [facility] Ferrous Sulfate (Ferrous Sulfate Tab*) 325 mg PO DAILY REPLACED BY [facility] Finasteride (Proscar Tab*) 5 mg PO DAILY REPLACED BY [facility] Sodium Chloride (Ns 0.9% 1000 Ml) 1,000 mls @ 125 mls/hr IV Q8H REPLACED BY [facility] Miscellaneous (Ativan Pyxis Owen) 1 ea N/A .ATIVAN IV OWEN PRN PRN Reason: PYXIS OWEN Tamsulosin HCl (Flomax Cap*) 0.4 mg PO DAILY REPLACED BY [facility] Vital Signs - 8 hr 06/10/19 06/10/19 06/10/19 21:17 21:18 21:23 Temperature 98.2 F Pulse Rate 80 78 75 Respiratory 16 29 26 Rate Blood Pressure 168/100 168/100 (mmHg) O2 Sat by Pulse 99 98 98 Oximetry 06/10/19 06/10/19 06/10/19 21:48 21:52 22:06 Temperature Pulse Rate 72 97 Respiratory 22 21 25 Rate Blood Pressure 157/82 (mmHg) O2 Sat by Pulse 98 87 Oximetry 06/10/19 06/10/19 06/10/19 22:18 22:48 23:00 Temperature Pulse Rate 76 79 82 Respiratory 21 21 24 Rate Blood Pressure 150/72 156/73 (mmHg) O2 Sat by Pulse 96 95 98 Oximetry 06/10/19 06/10/19 06/10/19 23:17 23:20 23:47 Temperature Pulse Rate 79 79 78 Respiratory 16 16 16 Rate Blood Pressure 170/67 158/68 (mmHg) O2 Sat by Pulse 93 93 93 Oximetry 06/11/19 06/11/19 06/11/19 00:00 00:18 00:48 Temperature Pulse Rate 78 86 76 Respiratory 15 23 24 Rate Blood Pressure 183/95 151/97 (mmHg) O2 Sat by Pulse 89 93 95 Oximetry 06/11/19 06/11/19 06/11/19 01:00 01:48 02:00 Temperature Pulse Rate 77 72 72 Respiratory 22 21 19 Rate Blood Pressure 141/91 (mmHg) O2 Sat by Pulse 96 96 94 Oximetry 06/11/19 06/11/19 06/11/19 02:17 02:51 03:00 Temperature Pulse Rate 73 71 72 Respiratory 18 20 17 Rate Blood Pressure 156/82 170/72 (mmHg) O2 Sat by Pulse 95 97 94 Oximetry 06/11/19 06/11/19 06/11/19 03:09 03:10 03:48 Temperature 97.5 F Pulse Rate 73 74 73 Respiratory 19 16 18 Rate Blood Pressure 152/73 152/73 141/72 (mmHg) O2 Sat by Pulse 96 95 96 Oximetry 06/11/19 04:00 Temperature Pulse Rate 74 Respiratory 16 Rate Blood Pressure (mmHg) O2 Sat by Pulse 95 Oximetry Oxygen Devices in Use Now: None Eyes: No Scleral Icterus, PERRLA Ears/Nose/Mouth/Throat: NL Teeth, Lips, Gums, Mucous Membranes Moist Neck: NL Appearance and Movements; NL JVP, Trachea Midline Respiratory: Symmetrical Chest Expansion and Respiratory Effort, Clear to Auscultation Cardiovascular: NL Sounds; No Murmurs; No JVD, No Edema Abdominal: NL Sounds; No Tenderness; No Distention Lymphatic: No Cervical Adenopathy Skin: No Rash or Ulcers Neurological: Alert and Oriented x 3, NL Muscle Strength and Tone - delayed reaction to following commands. Pt with jerky movements of his upper EXTs , - Result Diagrams: 06/11/19 02:13 06/11/19 02:13 Assess/Plan/Problems-Billing Assessment: - Patient Problems (1) New onset seizure without head trauma Current Visit: Yes Status: Acute Code(s): R56.9 - UNSPECIFIED CONVULSIONS SNOMED Code(s): 03106585 Comment: pt had diarrhea for 1 week and now with tonic clonic seizures X2 CT head normal, no focal deficits, no trauma Likely from electrolytes abnormalities, speficially hypocalcemia Calcium gluconate 2g now, followed with a drip, repeat Ionized calcium Q6H until normal with intermittent replacements mag replaced PTH is high. EEG ordered (2) Acute renal failure Current Visit: No Status: Acute Comment: due to dehydration from diarrhea IVF, patient is making urine. (3) BPH (benign prostatic hyperplasia) Current Visit: No Status: Acute Code(s): N40.0 - BENIGN PROSTATIC HYPERPLASIA WITHOUT LOWER URINRY TRACT SYMP SNOMED Code(s): 640179435 Comment: he has an Enlarged prostate, no retention, post voidals are good resume flomax and proscar (4) CAD (coronary artery disease) Current Visit: No Status: Acute Code(s): I25.10 - ATHSCL HEART DISEASE OF [place] CORONARY ARTERY W/O ANG PCTRS SNOMED Code(s): 17030576 Comment: - S/P AVR and CABG. Continue ASA, atorvastatin. (5) Diastolic CHF Current Visit: No Status: Acute Code(s): I50.30 - UNSPECIFIED DIASTOLIC ( CONGESTIVE) HEART FAILURE SNOMED Code(s): 894010545 Comment: - Not in exacerbation - Cont statin and metoprolol (6) HTN (hypertension) Current Visit: No Status: Acute Code(s): I10 - ESSENTIAL (PRIMARY) HYPERTENSION SNOMED Code(s): 81078590 Comment: cont norvasc, holding HCTZ because of the dehydration (7) Tobacco abuse Current Visit: No Status: Acute Code(s): Z72.0 - TOBACCO USE SNOMED Code(s ): 761002035 Comment: Pt advised to quit smoking and avoid second hand smoke (8) Diabetes Current Visit: No Status: Chronic Priority: Low Code(s): E11.9 - TYPE 2 DIABETES MELLITUS WITHOUT COMPLICATIONS SNOMED Code(s): 13914971 Comment: - Not on meds (9) Hypocalcemia Current Visit: Yes Status: Acute Code(s): E83.51 - HYPOCALCEMIA SNOMED Code(s): 4940899 (10) DVT prophylaxis Current Visit: No Status: Acute Priority: Medium Code(s): HAG0494 - SNOMED Code(s): 286464219 Comment: Heparin SubQ (11) Full code status Current Visit: Yes Status: Acute Code(s): Z78.9 - OTHER SPECIFIED HEALTH STATUS SNOMED Code(s): 268548060
[2019-06-11] MEDS ORDERED: amLODIPine TAB* 5 MG PO SCH (09:00)
[2019-06-11] MEDS ORDERED: Aspirin EC TAB* 81 MG TAB.EC PO SCH (09:00)
[2019-06-11] MEDS ORDERED: Atorvastatin* 80 MG TAB PO SCH (09:00)
[2019-06-11] MEDS ORDERED: Ferrous Sulfate TAB* 325 MG PO SCH (09:00)
[2019-06-11] MEDS ORDERED: Finasteride TAB* 5 MG PO SCH (09:00)
[2019-06-11] MEDS ORDERED: Tamsulosin CAP* 0.4 MG PO SCH (09:00)
[2019-06-11 10:48] LABS: BUN/Creatinine Ratio 12.3 (8-20); EGFR African American 8.7 (>60); EGFR Non-African American 7.2 (>60); Phosphorus 6.6 mg/dL (2.5-5.0)
[2019-06-11] MEDS ORDERED: Patiromer POWDER* 8.4 GM PAK PO SCH (13:00)
[2019-06-11 13:09] VITALS: BP 142/86
--- NOTE | 2019-06-11 15:56 | TRS ---
Amended report to enter cosigning physician. CC: Dr. Luis Enrique Arndt; Dr. Romina Bolden; Dr. Friend, Nephrology* TRANSFER SUMMARY: DATE OF ADMISSION: 06/11/19 DATE OF TRANSFER: 06/11/19 ATTENDING FOR THIS ADMISSION: Dr. Luis Enrique Arndt, ICU cocoa butter filter operator* (dictated by Prashanth Hermosillo, [place]). PRIMARY CARE PROVIDER: Dr. Romina Bolden. HOSPITAL COURSE: Please refer to admitting H and P, but in short, Mr. Segura is a 79-year-old male patient with a history of CKD and BPH who arrived in the emergency department with a complaint of new onset seizures. The patient states he started experiencing some random jerking movements in his upper extremities and felt very tremulous. He states that he did not lose consciousness during this time. There was no incontinence of bowel or bladder. He was able to call EMS services to transport him to the emergency department. On his way into the ED, this rhythmic shaking and tremor-like behavior was witnessed by EMS services in the back of the ambulance. He was given a milligram of Ativan. He did appear to be postictal in the emergency department, but was hemodynamically stable. His laboratories at the time of admission were quite deranged. He does appear to be chronically anemic. His H and H were 9.5 and 29. BUN was 90, creatinine was 7.57 with a GFR of 7.0, calcium was 6.3 and ionized calcium was 0.87. PTH was 558.2. Upon further discussion with the patient, he did note that he had been having episodes of diarrhea all week, which seemed similar in presentation to an episode that he had earlier this year in February. At that hospitalization, he was diagnosed with a type 4 renal tubular acidosis. At this time, with the doubling of his creatinine to almost 8 and then repeat lab values this morning showing the potassium now elevated at 6 and a creatinine on a repeat at 7.40, the patient does not appear to be making any progress. It should also be noted in his medical history that the patient does have severe BPH and was supposed to be following up with Urology as an outpatient after his last admission. There may be also component of some obstructive uropathy; however, his postvoid residuals have been 0 to less than 50, so the patient does appear to be emptying his bladder and making urine at this time. However, his overall presentation I suspect that the patient does need acute nephrology services which are not available at our facility today or this weekend. Also in terms of the doubling of his creatinine to almost 8, we do not have emergent dialysis this weekend either nor do we have urology services as well. After discussing this case with the patient and also with Dr. Arndt, the attending cocoa butter filter operator, we came to the conclusion that it would be safer for the patient to be transferred to a facility that has these services available. Treatment that the patient has received at this time, calcium repletion with calcium gluconate total of 6 g, magnesium sulfate total of 2 g, 4 L of IV normal saline, and patiromer 8.4 g. The patient was also scheduled to have an EEG that has not been completed yet because of his seizure activity; however, I expect this will not be completed before the patient leaves our facility. He did have a CT of the brain given the seizure activity that imaging does not show any acute intracranial abnormality. TRANSFER DIAGNOSES: 1. New onset seizures, likely secondary to metabolic derangement and electrolyte abnormalities, specifically hypocalcemia. 2. Acute on chronic renal failure secondary to type 4 renal tubular acidosis and dehydration. 3. Benign prostatic hypertrophy. 4. History of coronary artery disease, status post coronary artery bypass grafting and aortic valve replacement. 5. History of diastolic heart failure with preserved ejection fraction. 6. History of hypertension. 7. History of tobacco abuse. 8. Diabetes mellitus type 2. 9. Hypocalcemia. 10. Hyperkalemia. HOME MEDICATIONS: Include: 1. Zanaflex 2 mg p.o. b.i.d. 2. Hydrochlorothiazide 25 mg p.o. daily. 3. Amlodipine 10 mg p.o. daily. 4. Flomax 0.4 mg daily. 5. Patiromer powder 8.4 g p.o. daily. 6. Myrbetriq 50 mg p.o. daily. 7. Magnesium oxide 250 mg p.o. daily. 8. Proscar 5 mg p.o. daily. 9. Ferrous sulfate 325 mg 1 tablet p.o. daily. 10. Darifenacin 50 mg p.o. daily. 11. Colchicine 1 tab p.o. daily. 12. Atorvastatin 80 mg p.o. daily. 13. Aspirin 81 mg daily. The patient will be transported on normal saline at 125 mL/hour. DIAGNOSTIC STUDIES/LAB DATA: Repeat laboratories from today WBCs 6.5, RBCs 2.91 , hemoglobin 8.8, hematocrit 26, platelets 176. Sodium 138, potassium 6.0, chloride 114, CO2 of 15, anion gap 9, BUN 91, creatinine 7.40, GFR 8.7, BUN/ creatinine ratio of 12.3, glucose 74. Hemoglobin A1c 5.2. Calcium 7.0, ionized calcium 0.93, phosphorous 6.6, magnesium 2.0. Total bilirubin 0.40, AST 16, ALT 12, alk phos 65. Total creatine kinase 375. Total protein 6.5, albumin 3.8, globulin 2.7, albumin/globulin ratio 1.4. PTH of 558.2. Imaging: CT of the brain shows no acute intracranial abnormality and he has been regular sinus on telemetry, although he is tremulous and it has been difficult to get a clean tracing on his telemetry. At times, it does appear to be AFib, but he has no history of AFib at this time. Please see this morning's H&P for ROS and Physical Exam. DISPOSITION: The patient will be discharged to [facility] in [place], [place]. Accepting physician is Dr. Teddy Ventura, critical care attending. Bed number is pending. He will go to the ICU. He will be transported via ALS services. The patient is stable for transport. TIME SPENT ON TRANSFER: Sixty minutes critical time spent. PRASHANTH HERMOSILLO NP [id number]/[facility] #: [id number] IGNACIO
== END 2019-06-11 15:40 | disposition short-term general hospital (02) | DRG 53 ==
LOC: ED 21:14 → ICU 06-11 01:50
PROVIDERS: ADMIT Student in an Organized Health Care Education/Training Program; ATTEND Internal Medicine
DX: G40.89 Other seizures (principal); I13.0 Hypertensive heart and chronic kidney disease with heart failure and stage 1 through stage 4 chronic kidney disease, or unspecified chronic kidney disease; I50.32 Chronic diastolic (congestive) heart failure; N17.9 Acute kidney failure, unspecified; N18.4 Chronic kidney disease, stage 4 (severe); Z94.1 Heart transplant status; E11.22 Type 2 diabetes mellitus with diabetic chronic kidney disease; E78.00 Pure hypercholesterolemia, unspecified; J44.9 Chronic obstructive pulmonary disease, unspecified; G47.30 Sleep apnea, unspecified; N40.0 Benign prostatic hyperplasia without lower urinary tract symptoms; M10.9 Gout, unspecified; F41.9 Anxiety disorder, unspecified; F17.210 Nicotine dependence, cigarettes, uncomplicated; E86.0 Dehydration; E83.51 Hypocalcemia; D64.9 Anemia, unspecified; R19.7 Diarrhea, unspecified; E87.5 Hyperkalemia; N13.9 Obstructive and reflux uropathy, unspecified; N25.89 Other disorders resulting from impaired renal tubular function; Z88.1 Allergy status to other antibiotic agents; Z86.73 Personal history of transient ischemic attack (TIA), and cerebral infarction without residual deficits; I25.2 Old myocardial infarction; Z95.2 Presence of prosthetic heart valve; Z79.82 Long term (current) use of aspirin; Z79.899 Other long term (current) drug therapy
CPT/HCPCS: 36415; 70450; 80048; 80053; 81003; 81015; 82330; 82550; 83036; 83605; 83735; 83970; 84100; 85025; 85027; 85610; 87086; 87641; 93005; 99285; A9270-GY; J0610; J2060; J3475

== ENCOUNTER 2019-06-23 15:15 | Emergency (ER) | payer BC, MEDICARE ==
[2019-06-23 15:40] VITALS: BP 148/52
--- NOTE | 2019-06-23 16:14 | UC ---
UC General HPI - HPI Summary HPI Summary: 79-year-old male comes in with a chief complaint of shortness of breath. Patient has chronic kidney disease. States he's been short of breath since June [id number]. Patient was admitted to [facility] after a colonoscopy where they found polyps and he had intestinal bleeding. Patient reports she's had a long history of kidney disease. He is not on dialysis. He does have some rhinorrhea. He can't tell me whether or not the rhinorrhea is the cause of the shortness of breath. - History of Current Complaint Chief Complaint: UCGeneralIllness Stated Complaint: KIDNEY ISSUES, TROUBLE BREATHING, SWOLLEN EXTREMIT Time Seen by Provider: 06/23/19 15:38 Pain Intensity: 5 - Allergy/Home Medications Allergies/Adverse Reactions: Allergies Allergy/AdvReac Type Severity Reaction Status Date / Time cephalexin [From Keflex] AdvReac N/V Verified 06/23/19 16:09 PMH/Surg Hx/FS Hx/Imm Hx Previously Healthy: Yes - CHRONIC KIDNEY DISEASE,BPH Cardiovascular History: Hypertension Other History Of: Anticoagulant Therapy - Surgical History Surgical History: Yes Surgery Procedure, Year, and Place: ABDOMINAL HERNIA REPAIR, skull fracture in the . Aortic valve replacement September. heart transplant - Family History Known Family History: Positive: Cardiac Disease, Hypertension Negative: Diabetes - Social History Alcohol Use: None Alcohol Amount: SOCIAL Substance Use Type: None Substance Use Comment - Amount & Last Used: pt confused; current substance use is unknown, but no known history Smoking Status (MU): Light Every Day Tobacco Smoker Type: Cigars Amount Used/How Often: 1-2 CIGARS/DAY Length of Time of Smoking/Using Tobacco: 57 years Have You Smoked in the Last Year: Yes When Did the Patient Quit Smoking/Using Tobacco: 2014 Household Exposure Type: Cigars - Immunization History Most Recent Influenza Vaccination: 05/10 Most Recent Tetanus Shot: 2013 Most Recent Pneumonia Vaccination: 05/04/2018 Review of Systems All Other Systems Reviewed And Are Negative: Yes Constitutional: Positive: Other - SEE HPI Skin: Positive: Negative Eyes: Positive: Negative ENT: Positive: Sinus Congestion Respiratory: Positive: Shortness Of Breath Cardiovascular: Positive: Negative Gastrointestinal: Positive: Negative Motor: Positive: Negative Neurovascular: Positive: Negative Musculoskeletal: Positive: Negative Neurological: Positive: Negative Psychological: Positive: Negative Is Patient Immunocompromised?: No Physical Exam Triage Information Reviewed: Yes Appearance: No Pain Distress, Well-Nourished Vital Signs: Initial Vital Signs Temp 99 F 06/23/19 15:35 Pulse 73 06/23/19 15:35 Resp 18 06/23/19 15:35 BP 148/52 06/23/19 15:35 Pulse Ox 97 06/23/19 15:35 Vital Signs Reviewed: Yes Eye Exam: Normal Eyes: Positive: Conjunctiva Clear Neck: Positive: Supple Respiratory: Positive: Lungs clear, Normal breath sounds, No respiratory distress Cardiovascular: Positive: RRR Musculoskeletal: Positive: Strength Intact, Edema @ - 2+ B/L PITTING Neurological: Positive: Alert Psychological: Positive: Age Appropriate Behavior Skin Exam: Normal Course/Dx - Course Course Of Treatment: With the patient being short of breath and with a history of chronic kidney disease and is not being able to get lab work back right away I recommended further evaluation emergency department now. Patient's going by POV to the emergency department. - Diagnoses Provider Diagnosis: Shortness of breath, CKD (chronic kidney disease) Discharge ED - Sign-Out/Discharge Documenting (check all that apply): Patient Departure All imaging exams completed and their final reports reviewed: No Studies - Discharge Plan Condition: Stable Disposition: HOME-RECOMMEND TO ED Patient Education Materials: Chronic Kidney Disease (ED), Shortness of Breath ( ED) Referrals: Romina Bolden MD [Primary Care Provider] - Additional Instructions: GO DIRECTLY TO THE EMERGENCY DEPARTMENT FOR FURTHER EVALUATION OF YOUR SHORTNESS OF BREATH AND CHRONIC KIDNEY DISEASE. - Billing Disposition and Condition Condition: STABLE Disposition: Home-Recommend to ED
== END 2019-06-23 16:33 | disposition home health service (06) ==
LOC: UCEAST 15:15
DX: N18.9 Chronic kidney disease, unspecified (principal); R06.02 Shortness of breath; I10 Essential (primary) hypertension; F17.210 Nicotine dependence, cigarettes, uncomplicated; Z88.1 Allergy status to other antibiotic agents
CPT/HCPCS: 99212; G0463

== ENCOUNTER 2019-06-29 12:24 | Emergency (ER) | payer BC ==
--- NOTE | 2019-06-29 12:35 | ED ---
Lower Extremity - HPI Summary HPI Summary: This patient is a 79 year old male with a history of renal failure presenting to [facility] with a chief complaint of infection in his right great toe and his right index finger since 3 days ago. He has a Hx of gout. He also has psychiatric complaints of depression, anxiety, and apathy. He denies SI and HI. He reports chills. - History of Current Complaint Stated Complaint: INFECTED TOE AND FINGER PER EMS Hx Obtained From: Patient Onset/Duration: Days Timing: Lasting Days - Allergies/Home Medications Allergies/Adverse Reactions: Allergies Allergy/AdvReac Type Severity Reaction Status Date / Time cephalexin [From Keflex] AdvReac N/V Verified 06/23/19 16:09 Home Medications: Home Medications Albuterol HFA INHALER* [Ventolin HFA Inhaler*] 2 puff INH Q6H PRN 06/29/19 [ History Confirmed 06/29/19] Bimatoprost 0.03% Opth Soln 1 drop BOTH EYES BEDTIME 06/29/19 [History Confirmed 06/29/19] Brinzolamid/Brimonidin OPH(NF) [Simbrinza OPH.SUSP(NF)] 1 drop LEFT EYE TID 02/08 [History Confirmed 06/29/19] Cyanocobalamin TAB* [Vitamin B12 TAB*] 1,000 mcg SL DAILY 06/29/19 [History Confirmed 06/29/19] Ergocalciferol CAP* [Drisdol CAP*] 50,000 unit PO Q7D 06/29/19 [History Confirmed 06/29/19] Fluticasone NASAL SPRAY 50MCG* [Flonase NASAL SPRAY 50MCG*] 2 spray BOTH NARES DAILY 06/29/19 [History Confirmed 06/29/19] Furosemide TAB* [Lasix TAB*] 120 mg PO BID 06/29/19 [History Confirmed 06/29/19] Isosorbide Mononitrate [Isosorbide Mononitrate ER] 30 mg PO DAILY 06/29/19 [ History Confirmed 06/29/19] LoraTADine TAB(NF) [Claritin 10 MG TAB(NF)] 10 mg PO EVERY OTHER DAY 06/29/19 [ History Confirmed 06/29/19] Nicotine PATCH 7 MG/24 HR* 1 patch TRANSDERM DAILY 06/29/19 [History Confirmed 06/29/19] Pantoprazole TAB * [Protonix TAB*] 40 mg PO DAILY 06/29/19 [History Confirmed ] Polyethylene Glycol 3350* [Miralax*] 17 gm PO DAILY PRN 06/29/19 [History Confirmed 06/29/19] Sodium Bicarbonate (ANTACID)* 1,300 mg PO TID 06/29/19 [History Confirmed ] Tiotropium Brom/Olodaterol [Stiolto Respimat Inh [place] (60 puff)] 2 puff INH DAILY 06/29/19 [History Confirmed 06/29/19] Tiotropium CAPSULE (NF) [Spiriva CAPSULE (NF)] 1 cap.inh INH DAILY 06/29/19 [ History Confirmed 06/29/19] guaiFENesin [Guaifenesin] 200 mg PO QID 06/29/19 [History Confirmed 06/29/19] hydrALAZINE TAB* [Apresoline TAB*] 25 mg PO TID 06/29/19 [History Confirmed 02/08] PMH/Surg Hx/FS Hx/Imm Hx Endocrine/Hematology History: Reports: Hx Anticoagulant Therapy, Hx Blood Transfusions, Hx Diabetes Denies: Hx Thyroid Disease, Hx Unexplained Bleeding Cardiovascular History: Reports: Hx Angina, Hx Congestive Heart Failure, Hx Coronary Artery Disease, Hx Hypercholesterolemia, Hx Hypertension, Hx Myocardial Infarction, Hx Valvular Heart Disease - aortic valve replacement, Other Cardiovascular Problems/Disorders - AORTIC STENOSIS Denies: Hx Auto Implanted Cardiovert Defib, Hx Congenital Heart Disease, Hx Pacemaker/ICD, Hx Peripheral Vascular Disease, Hx Syncope Respiratory History: Reports: Hx Asthma, Hx Chronic Obstructive Pulmonary Disease (COPD), Hx Sleep Apnea - pt states he doesn't wear CPAP anymore Comment Only: Other Respiratory Problems/Disorders - SOB GI History: Denies: Hx Ulcer Comment Only: Other GI Disorders - HERNIA REPAIR History: Reports: Hx Benign Prostatic Hyperplasia, Hx Chronic Renal Failure - CKD stage 3, Hx Renal Disease - RENAL FUNCTION DUE TO DIABETES, Other Problems/Disorders - chronic renal insufficiency Denies: Hx Dialysis Musculoskeletal History: Reports: Hx Back Problems, Hx Gout, Other Musculoskeletal History - leg and foot cramps Denies: Hx Arthritis, Hx Osteoporosis Sensory History: Reports: Hx Contacts or Glasses Denies: Hx Cataracts, Hx Eye Injury, Hx Glaucoma, Hx Deafness, Hx Hearing Aid , Hx Hearing Problem Opthamlomology History: Reports: Hx Contacts or Glasses Denies: Hx Cataracts, Hx Eye Injury, Hx Glaucoma Neurological History: Reports: Hx Transient Ischemic Attacks (TIA) Denies: Hx Dementia, Hx Developmental Delay, Hx Headaches, Hx Migraine, Hx Seizures, Hx Spinal Cord Injury Psychiatric History: Reports: Hx Anxiety Denies: Hx Attention Deficit Hyperactivity Disorder, Hx Eating Disorder, Hx Depression, Hx Panic Disorder, Hx Post Traumatic Stress Disorder, Hx Inpatient Treatment, Hx Community Mental Health Tx, Hx Schizophrenia, Hx Bipolar Disorder , Hx Suicide Attempt, Hx of Violent Episodes Against Others, Hx Substance Abuse , Other Psychiatric Issues/Disorders - Surgical History Surgery Procedure, Year, and Place: ABDOMINAL HERNIA REPAIR, skull fracture in the . Aortic valve replacement September. heart transplant Hx Anesthesia Reactions: No - Immunization History Date of Tetanus Vaccine: unknown Date of Influenza Vaccine: None Infectious Disease History: Denies: Hx Clostridium Difficile, Hx Hepatitis, Hx Human Immunodeficiency Virus (HIV), Hx of Known/Suspected MRSA, Hx Shingles, Hx Tuberculosis, Hx Known/ Suspected VRE, Hx Known/Suspected VRSA, History Other Infectious Disease - Family History Known Family History: Positive: Cardiac Disease, Hypertension Negative: Diabetes - Social History Alcohol Use: None Alcohol Amount: SOCIAL Hx Substance Use: No Substance Use Type: Reports: None Substance Use Comment - Amount & Last Used: pt confused; current substance use is unknown, but no known history Hx Tobacco Use: Yes Smoking Status (MU): Light Every Day Tobacco Smoker Type: Cigars Amount Used/How Often: 1-2 CIGARS/DAY Length of Time of Smoking/Using Tobacco: 57 years Have You Smoked in the Last Year: Yes Review of Systems Positive: Chills Positive: Other - Pain in his finger and toe Positive: Anxious, Depressed, Other - Apathy, denies SI and HI All Other Systems Reviewed And Are Negative: Yes Physical Exam - Summary Physical Exam Summary: Constitutional: Well-developed, Well-nourished, Alert. (-) Distressed Skin: Warm, Dry HENT: Normocephalic; Atraumatic Eyes: Conjunctiva normal Neck: Musculoskeletal ROM normal neck. (-) JVD, (-) Stridor, (-) Tracheal deviation Cardio: Rhythm regular, rate normal, Heart sounds normal; Intact distal pulses; Radial pulses are 2+ and symmetric. (-) Murmur Pulmonary/Chest wall: Effort normal. (-) Respiratory distress, (-) Wheezes, (-) Rales Abd: Soft, (-) tenderness, (-) Distension, (-) Guarding, (-) Rebound Musculoskeletal: Right 2nd finger is swollen from the MCP joint to the PIP joint. Limited ROM he cannot bend his finger. Some sensitivity in the right great toe but no swelling. Lymph: (-) Cervical adenopathy Neuro: Alert, Oriented x3 Psych: Mood and affect Normal Triage Information Reviewed: Yes Vital Signs Reviewed: Yes Procedures - Sedation Patient Received Moderate/Deep Sedation with Procedure: No Diagnostics - Laboratory Result Diagrams: 06/29/19 13:07 06/29/19 13:07 Lab Statement: Any lab studies that have been ordered have been reviewed, and results considered in the medical decision making process. - Radiology Finger XR Radiology Interpretation Completed By: Radiologist Summary of Radiographic Findings: Degenerative changes of the proximal interphalangeal joint. Subarticular lytic lesion is noted may represent gout or degenerative change. ED Provider has reviewed this report. Toe Right Great XR Radiology Interpretation Completed By: Radiologist Summary of Radiographic Findings: Mild erosive change in the distal and medially of the distal first metacarpal. ED provider has reviewed this report. - EKG 1 Summary of EKG Findings: QTC is 495, CA is 197, QRSD is 92. Possible U waves in the lateral leads, no ischemic changes. ED Physician has reviewed and interpeted this EKG. Lower Extremity Course/Dx - Course Course Of Treatment: Patient is here with feeling of apathy and what appears to be gout. Patient has swelling in his index finger on his hand was able to range his finger. Patient has a history of gout. [facility] Patient's fundi have hypomagnesemia and hypocalcemia. Patient was given 2 g of IV magnesium and 1 g of IV calcium. Patient's supervisor plastics was called and they recommended discharge with patient picking up the prescription he was prescribed yesterday for calcium. Patient has a appointment with his supervisor plastics within the next week for follow-up. 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 Patient was told to take Tylenol for his gout pain. - Diagnoses Provider Diagnoses: Chronic kidney disease, Hypocalcemia, Hypomagnesemia, Gout - Physician Notifications Discussed Care Of Patient With: Joan Friend - PCP Time Discussed With Above Provider: 14:34 - Current numbers are not abnormal for him, can be discharged and F/U in 2 days. Discharge ED - Sign-Out/Discharge Documenting (check all that apply): Patient Departure - Discharge - Discharge Plan Condition: Stable Disposition: HOME Patient Education Materials: Gout (ED) Referrals: Joan Friend MD [Medical Doctor] - Additional Instructions: Follow up with Dr. Friend. Come back if you cannot breathe, if you are confused at all chest pain. 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 Take tylenol for pain over the counter. - Billing Disposition and Condition Condition: STABLE Disposition: Home - Attestation Statements Document Initiated by Clive: Yes Documenting Scribe: Cortez Chino Provider For Whom Clive is Documenting (Include Credential): Scott Rogers MD Scribe Attestation: Cortez Núñez, scribed for Scott Rogers MD on 06/29/19 at 1635. Scribe Documentation Reviewed: Yes Provider Attestation: The documentation as recorded by the Cortez camargo accurately reflects the service I personally performed and the decisions made by me, Scott Rogers MD Status of Scribsue Document: Viewed
[2019-06-29 13:14] LABS: ABS Basophils 0.1 10^3/ul (0-0.2); ABS Eosinophils 0.1 10^3/ul (0-0.6); ABS Lymphocytes 0.6 10^3/ul (1.0-4.8); ABS Monocytes 0.7 10^3/ul (0-0.8); ABS Neutrophils 5.5 10^3/ul (1.5-7.7); Eosinophil % 1.9 %; Hematocrit 25 % (42-52); Hemoglobin 8.7 g/dL (14.0-18.0); Lymphocyte % 8.9 %; Mean Corpuscular HGB Conc 34 g/dL (31-36); Mean Corpuscular Hemoglobin 31 pg (27-31); Mean Corpuscular Volume 89 fL (80-94); Mean Platelet Volume 7.3 fL (7.4-10.4); Platelet Count 161 10^3/uL (150-450); Red Blood Count 2.85 10^6 /uL (4.18-5.48); Red Cell Distribution Width 17 % (10-15); White Blood Count 7.1 10^3/uL (3.5-10.8)
[2019-06-29 13:40] LABS: Albumin 3.3 g/dL (3.2-5.2); Albumin/Globulin Ratio 1.3 (1-3); BUN/Creatinine Ratio 8.9 (8-20); EGFR African American 11.7 (>60); EGFR Non-African American 9.6 (>60); Globulin 2.5 g/dL (2-4); Magnesium 1.4 mg/dL (1.9-2.7); Potassium 3.5 mmol/L (3.5-5.0); Total Bilirubin 0.7 mg/dL (0.2-1.0); Total Protein 5.8 g/dL (6.4-8.9)
[2019-06-29 13:45] LABS: Calcium 6.1 mg/dL (8.6-10.3); Troponin I 0.04 ng/mL (<0.03)
[2019-06-29] MEDS ORDERED: Magnesium Sulfate 2 GM IV* 2 GM/50 ML BAG IVPB ONE (13:50)
[2019-06-29] MEDS ORDERED: Calcium Gluconate INJ* 1 GM in NS 0.9% 100 ML* 100 ML IVPB ONE (13:51)
[2019-06-29] MEDS ORDERED: Acetaminophen TAB* 325 MG PO ONE (15:02)
[2019-06-29 17:01] VITALS: BP 140/72
[2019-06-29] MEDS ORDERED: Calcium Carbonate TAB* 1250 MG (CALCIUM 500 MG) PO SCH (21:00)
== END 2019-06-29 16:59 | disposition home or self-care (01) ==
LOC: ED 12:24
DX: M10.9 Gout, unspecified (principal); E83.51 Hypocalcemia; E83.42 Hypomagnesemia; E11.22 Type 2 diabetes mellitus with diabetic chronic kidney disease; I13.0 Hypertensive heart and chronic kidney disease with heart failure and stage 1 through stage 4 chronic kidney disease, or unspecified chronic kidney disease; N18.3 Chronic kidney disease, stage 3 (moderate); I50.9 Heart failure, unspecified; I25.10 Atherosclerotic heart disease of native coronary artery without angina pectoris; E78.00 Pure hypercholesterolemia, unspecified; I25.2 Old myocardial infarction; J44.9 Chronic obstructive pulmonary disease, unspecified; N40.0 Benign prostatic hyperplasia without lower urinary tract symptoms; F41.9 Anxiety disorder, unspecified; F17.290 Nicotine dependence, other tobacco product, uncomplicated; Z95.2 Presence of prosthetic heart valve; Z86.73 Personal history of transient ischemic attack (TIA), and cerebral infarction without residual deficits; Z79.82 Long term (current) use of aspirin; Z79.899 Other long term (current) drug therapy; Z88.1 Allergy status to other antibiotic agents
CPT/HCPCS: 36415; 73140; 80053; 83735; 83880; 84484; 85025; 93005; 96365; 96366; 96367; 99283; A9270-GY; J0610; J3475

== ENCOUNTER 2019-06-30 12:39 | Emergency (ER) | payer BC ==
--- OUTSIDE RECORDS SUMMARY | 2019-06-30 13:54 | XMS REPORT | Summary of Care ---
:1940 Author Organization [facility] Address [address] [address] Care Team Providers Name Role Phone Romina Bolden MD Primary Care Provider Marcela Donnelly MD Primary Rails Developer/Vb Developer Reason for Referral MRI/CAT/PET Scan (Routine) Status Reason Specialty Diagnoses / Procedures Referred By Referred To Contact Contact Authorized Diagnoses Renal cyst, left Yuan, Procedures US RETROPERITONEAL COMPLETE MD [address] [address] Refer to Department Only (Routine) Status Reason Specialty Diagnoses / Referred By Referred To Procedures Contact Contact Pending Review UROLOGY Diagnoses Prostatism Romina Bolden MD [place] [address] Scheduling Instructions Please indicate side affected in the diagnosis. Refer to Department Only (Routine) Status Reason Specialty Diagnoses / Referred By Referred To Procedures Contact Contact Pending Review NEUROLOGY Diagnoses Memory deficit Romina Bolden MD [address] [place] [address] Reason for Visit Reason Comments Transitional Care Management d/c 05/11 from [facility] Other concerned about kidneys, frequent urination, no incontinence, feels helpless Memory Loss flucuates, forgettful at times, feels helpless, kind of lost, general feeling of "apathy" Other Colonoscopy results Encounter Details Date Type Department Care Team Description 06/27/2019 [facility] Visit [facility] (Primary Dx); Practice Romina Kaur MD Prostatism; [address] Memory deficit; [place] [address] [place] [address] CKD (chronic kidney disease), stage V ([facility]); [phone] Anemia due to GI blood loss; Bladder wall thickening; Renal cyst, left; Dementia associated with 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 ([facility]); Cough; Chronic obstructive pulmonary disease, unspecified COPD type ([facility]) Allergies Active Allergy Reactions Severity Noted Date Comments Diego Inhibitors Other 12/09/2017 Elevated potassium CKD Keflex GI Reaction 07/24/2011 Lisinopril Other 02/14/2019 Very high potassium Losartan Other 12/09/2017 Elevated potassium, chronic kidney disease Nsaids Other 04/13/2018 CKD documented as of this encounter (statuses as of 06/27/2019) Medications Medication Sig Dispensed Refills Start Date End Date Status Aspirin 81 MG Oral Tab Take 1 Tab by 0 Active EC mouth DAILY. Blood Glucose by Does not apply 1 Kit 0 04/25/2015 Active Monitoring Suppl route. 1. (BLOOD GLUCOSE METER) Brand:[employer] Does not apply Kit Insulinx 2. Dx:E11.9 3. Insulin dependent 4. Test Blood Glucose 4 time(s) A DAY ----before meals & at bedtime albuterol HFA Take 2 Puffs by 1 Inhaler 1 05/29/2017 Active (VENTOLIN) 108 (90 inhalation EVERY Base) MCG/ACT SIX HOURS Inhalation Aero NEEDED (wheezing). SolnIndications: Chronic obstructive pulmonary disease, unspecified COPD type ([facility]) FREESTYLE INSULINX USE DIRECTED 100 Each 11 09/25/2017 Active TEST In Vitro Strip THREE TIMES A DAY Brinzolamide-Brimonidi Place 1 Drop to 0 11/24/2017 Active ne (SIMBRINZA) 1-0.2 % the external eye Ophthalmic Suspension THREE TIMES DAILY. Left eye bimatoprost (LUMIGAN) Place 1 Drop in 0 11/24/2017 Active 0.03 % Ophthalmic both eyes EVERY Solution BEDTIME. 1 drop both eyes tiotropium (SPIRIVA Take 18 mcg by 0 Active HANDIHALER) 18 MCG inhalation DAILY. Inhalation Cap Cyanocobalamin Place 1 Tab under 30 Tab 0 03/12/2018 Active (VITAMIN B-12) 1000 tongue DAILY. MCG Sublingual SL TabIndications: Malaise and fatigue loratadine Take 1 Tab by 30 Tab 0 04/13/2018 Active (CLARITIN,ALAVERT) 10 mouth EVERY OTHER MG Oral DAY. TabIndications: COPD with acute bronchitis (HCC) Tiotropium Take 2 INHL by 1 Inhaler 5 08/26/2018 Active [place]-Olodaterol inhalation DAILY. (STIOLTO RESPIMAT) 2.5-2.5 MCG/ACT Inhalation Aero Soln atorvastatin (LIPITOR) TAKE ONE TABLET BY 30 Tab 5 10/25/2018 Active 80 MG Oral MOUTH ONCE DAILY TabIndications: Mixed hyperlipidemia finasteride (PROSCAR) TAKE ONE TABLET BY 90 Tab 1 01/10/2019 Active 5 MG Oral MOUTH ONCE DAILY TabIndications: Benign nodular prostatic hyperplasia without lower urinary tract symptoms amLodipine (NORVASC) 5 Take 1 Tab by 90 Tab 1 02/02/2019 Active MG Oral mouth DAILY. New TabIndications: lower dose Essential hypertension, benign patiromer (VELTASSA) Take 8.4 g by 0 Active 8.4 g Oral Pack mouth DAILY NEEDED (hyperkalemia). Polyethylene Glycol Take 17 g by mouth 0 Active 3350 (MIRALAX PO) DAILY NEEDED (constipation). Magnesium 250 MG Oral Take 1 Tab by 90 Tab 3 02/15/2019 Active TabIndications: Low mouth DAILY. magnesium level Darifenacin TAKE ONE TABLET BY 30 Tab 3 02/17/2019 Active Hydrobromide 15 MG MOUTH ONCE DAILY Oral TABLET SR 24 HR sodium bicarbonate 650 Take 1,300 mg by 0 Active MG Oral Tab mouth THREE TIMES DAILY. Tamsulosin HCl Take 0.4 mg by 0 Active (FLOMAX) 0.4 MG Oral mouth DAILY. Cap fluticasone (FLONASE [place] 2 Sprays in 1 Bottle 3 03/28/2019 Active ALLERGY RELIEF) 50 nose DAILY. MCG/ACT Nasal SuspensionIndications: Allergic rhinitis, unspecified seasonality, unspecified trigger Mirabegron ER 50 MG Take 50 mg by 30 Tab 3 04/02/2019 Active Oral TABLET SR 24 HR mouth DAILY. Tizanidine 2 MG Oral Take 2 mg by mouth 30 Tab 1 06/10/2019 Active TabIndications: Muscle EVERY BEDTIME spasm NEEDED (muscle cramps). ergocalciferol Take 1 Cap by 5 Cap 0 06/26/2019 Active (DRISDOL, CALCIFEROL, mouth EVERY 7 VITAMIN D) 1.25 MG DAYS. (01544 UT) Oral Cap furosemide (LASIX) 40 Take 3 Tabs by 30 Tab 0 06/22/2019 Active MG Oral Tab mouth TWICE DAILY. guaifenesin Take 1 Tab by 84 Tab 0 06/22/2019 Active (ORGANIDIN-NR) 200 MG mouth FOUR TIMES Oral Tab DAILY. hydrALAZINE Take 1 Tab by 120 Tab 0 06/22/2019 Active (APRESOLINE) 25 MG mouth THREE TIMES Oral Tab DAILY. isosorbide MONOnitrate Take 1 Tab by 30 Tab 0 06/23/2019 Active (IMDUR) 30 MG Oral mouth DAILY. TABLET SR [address] 1 Patch onto 30 Patch 0 06/23/2019 Active patch-daily (NICODERM) skin DAILY. 7 MG/24HR Transdermal PATCH 24 HR pantoprazole Take 1 Tab by 30 Tab 3 06/23/2019 Active (PROTONIX) 40 MG Oral mouth DAILY. Tab EC documented as of this encounter (statuses as of 06/27/2019) Active Problems Problem Noted Date Dementia associated with other underlying disease without behavioral 2019 disturbance Renal cyst, left 06/27/2019 CKD (chronic kidney disease), stage V 06/27/2019 Prostatism 06/27/2019 EDILSON (acute kidney injury) 06/11/2019 Seizure 06/11/2019 Type 2 diabetes mellitus with stage 4 chronic kidney disease, without 2018 long-term current use of insulin Trochanteric bursitis of both hips 09/17/2017 Hip pain, bilateral 08/07/2017 Coronary artery disease involving [place] coronary artery of [place] heart 01/15 without angina pectoris Type 2 diabetes mellitus with stage 4 chronic kidney disease 01/16/2016 Gross hematuria 08/03/2015 Elevated prostate specific antigen (PSA) 08/03/2015 CAD (coronary artery disease) 11/07/2014 Overview: CABG September 2014 Hx of CABG 06/22/2014 Overview: Dr.Lynn Bell is his climatology professor Obesity, unspecified 06/10/2012 Overview: BMI 31 This [...] CABG September 2014, Dr. Catrachito Casas at [facility] in [place] S/P AVR (aortic valve replacement) HTN (hypertension) Gout Sleep apnea Overview: never followed up on sleep study, agrees to set this up today 01/16/16 documented as of this encounter (statuses as of 06/27/2019) Resolved Problems Problem Noted Date Resolved Date Septicemia due to Enterobacter species 11/13/2017 07/01/2018 Type 2 diabetes mellitus with stage 4 chronic kidney 09/11/2016 03/12/2018 disease, with long-term current use of insulin Hyperkalemia 10/31/2011 07/31/2017 Overview: Due to renal disease Potassium Level 5.8-6 2011 Diabetes mellitus 03/12/2018 documented as of this encounter (statuses as of 06/27/2019) Immunizations Name Administration Dates Next Due Influenza [...] Used Alcohol Use Drinks/Week oz/Week Comments No Social Isolation Answer Date Recorded In a typical week, how many times do you Once a week 06/13/2019 talk on the phone with family, friends, or neighbors? How often do you get together with friends Once a week 06/13/2019 or relatives? How often do you attend mandaeism or evangelical More than 4 times per year 2018 services? Do you belong to any clubs or organizations Yes 06/13/2019 such as mandaeism groups, unions, fraternal or athletic groups, or school groups? How often do you attend meetings of the More than 4 times per year 06/13/2019 clubs or organizations you belong to? Are you now , , , 06/13/2019 , never or living with a partner? Physical Activity Answer Date Recorded On average, how many days per week do you engage in moderate to 5 days 2018 strenuous exercise (like walking fast, running, jogging, dancing, swimming, biking, or other activities that cause a light or heavy sweat)? On average, how many minutes do you engage in exercise at this 30 min 2018 level? Stress Answer Date Recorded Do you feel stress - tense, restless, nervous, or Only a little 06/13/2019 anxious, or unable to sleep at night because your mind is troubled all the time - these days? Financial Resource Strain Answer Date Recorded How hard is it for you to pay for the very basics like Not hard at all 2018 food, housing, medical care, and heating? Intimate Partner Violence Answer Date Recorded Within the last year, have you been afraid of your partner or No 06/13/2019 ex-partner? Within the last year, have you been humiliated or emotionally No 06/13/2019 abused in other ways by your partner or ex-partner? Within the last year, have you been kicked, hit, slapped, or No 06/13/2019 otherwise physically hurt by your partner or ex-partner? Within the last year, have you been raped or forced to have any No 06/13/2019 kind of sexual activity by your partner or ex-partner? Food Insecurity Answer Date Recorded Within the past 12 months, you worried that your food would Never true 2018 run out before you got money to buy more. Within the past 12 months, the food you bought just didn't Never true 2018 last and you didn't have money to get more. Transportation Needs Answer Date Recorded In the past 12 months, has lack of transportation kept you from No 06/13/2019 medical appointments or from getting medications? In the past 12 months, has lack of transportation kept you from No 06/13/2019 meetings, work, or getting things needed for daily living? Sex Assigned at Date Recorded Not on file Job Start Date Occupation Industry Not on file Not on file Not on file Travel History Travel Start Travel End No recent travel history available. documented as of this encounter Last Filed Vital Signs Vital Sign Reading Time Taken Comments Blood Pressure 152/78 06/27/2019 11:20 AM EST Pulse 66 06/27/2019 11:20 AM EST Temperature 37.9 06/27/2019 11:20 AM C (100.2 EST F) Respiratory Rate 20 06/27/2019 11:20 AM EST Oxygen Saturation 96% 06/27/2019 11:20 AM EST Inhaled Oxygen Concentration - - Weight 73.9 kg (162 lb 14.4 oz) 06/27/2019 11:20 AM EST Height 170.2 cm (5' 7") 06/27/2019 11:20 AM EST Body Mass Index 25.51 06/27/2019 11:20 AM EST documented in this encounter Patient Instructions Patient InstructionsRomina Bolden MD - 06/27/2019 11:20 AM ESTYou have some dementia so I recommend you stop working, permanently. I gave you a letter to give to your employer. You then need to meet with HR at work regarding if you are eligible for disability vs fpc pension. You need to follow up closely with Dr Friend for your kidney's. We called his office today and they were worried when you left Thursday. They were not otherwise planning to readmit you to the hospital. They want to see you again today at 1:30: Please go right there from here: Dr Friend. I am referring you to Dr Grimes, urologist in [place] I am referring you to Neurology for your memory, in [place]. You need to take their calls and write down the appointment they give you. Please call the visiting nurses back so they can come out to your house, check you, and help you with your many medications. I ordered a kidney ultrasound to follow up on a complex left renal cyst found on CT when you were [facility]/ Please do a chest xray today since you have a mild cough and low grade temp of 100.1. It appears better than when you were at [facility] but if the radiologist feels there is an infection,we will call you and start an antibiotic. If you have more problems urinating, fevers, chills, problems breathing, then go to [facility] ER. documented in this encounter Progress Notes Romina Bolden MD - 06/27/2019 11:20 AM EST Nursing Notes: Nitza Moya LPN 06/27/2019 11:36 AM Signed Chief Complaint Patient presents with Transitional Care Management d/c 05/11 from [facility] Other concerned about kidneys, frequent urination, no incontinence, feels helpless Memory Loss flucuates, forgettful at times, feels helpless, kind of lost, general feeling of "apathy" Other Colonoscopy results Urologist: Dr Mayers Computer Repair Engineer: Dr Ji Tactical Air Defense Controller: Dr Bell Chief Complaint: Hospital Follow up HPI: TCM Statement. Review of the hospitalization: I am seeing for transition of care following hospitalization at [facility]. He also went to [facility] ER 06/23/19 for dyspnea, was treated and released. He saw his community health promoter, Dr Friend 06/24/19: Potassium that day was 3.4, BUN 78., Crea 5.86, H/H 8.7/25, urine culture negative The date of discharge was: 06/11/19-06/22/2019 from [facility]. The discharge diagnosis was: EDILSON over chronic kidney disease due to diarrhea, seizure, hypertension, acute blood loss anemia, COPD exacerbation, abnormal electrolytes/hyperkalemia. I reviewed the discharge summary, discharge instructions, and pertinent additional documentation obtained during hospitalization. I reconciled the medications. I also reviewed the Transition of Care documentation done by staff. He was "admitted in ICU with a EDILSON and Creatinine of 7.8 and metabolic acidosis with a bicarb of 15and lactic acid 1.7. Patient also had an episode of tonic-clonic seizure for admission to ICU." Consultants: Nephrology for EDILSON Imaging ruled out obstruction. He was prescribed Furosemide total of 120 mg daily. Neurology for tonic-clonic seizure: CT head: NAD EEG: Negative Neurology felt the seizure as from his metabolic abnormalities. Gastroenterology was consulted for acute blood loss anemia. Colonoscopy showed non-bleeding cecal AVM's which were treated, and 2 polyps New medications on discharge: Ergocalciferol 50K units q7days Furosemide 40 m tabs bid Hydralazine 25 mg tid Isosorbide 30 mg daily guaifenasin 200 mg qid Nicotine patch 7 mg Discontinued medications: Colchicine Hectorol HCTZ Home health services were ordered on discharge. He reports they have only just called him today. Studies in hospital: XR CHEST 1 VIEW Final Result Bilateral patchy opacities, interlobular septal prominence, and left pleural effusion would most commonly represent pulmonary edema. Multifocal pneumonia could also appear this way in the appropriate clinical setting. Signed by Jayy Orellana MD, MFA on 06/14/2019 10:42 AM XR CHEST 1 VIEW Final Result No definite acute findings. Signed by Akash Beach on 06/11/2019 8:[address] ABDOMEN PELVIS WITHOUT IV CONTRAST Final Result 1. No evidence for acute obstructive uropathy. Diffuse bladder wall thickening noted which can be seen with chronic bladder outlet obstruction given the nodular prostate versus cystitis. 2. Low-attenuation lesion arising from the left kidney noted which is favored as a complex cyst, but follow-up suggested to better exclude a solid neoplasm with consideration for ultrasound or MRI. Otherwise follow up to show stability in about 6 months. 3. Small pleural effusions. Signed by Akash Beach on 06/11/2019 8:26 PM The tests that were not available at the time of discharge were reviewed. Additional tests which are not yet available include: Pathology reports are in: FINAL DIAGNOSIS 1. Stomach, biopsy: -Antral and fundic type gastric mucosa with reactive gastropathy. -No Helicobacter organisms on H/E stain. -No dysplasia or malignancy. 2. Colon, ascending, biopsy: -Tubular adenoma. 3. Colon, transverse, biopsy: -Hyperplastic polyp. Colonoscopy 06/21/19: Impression: - The examined portion of the ileum was normal. - Non-bleeding internal hemorrhoids. - Diverticulosis in the sigmoid colon. - Two 4 to 6 mm polyps in the transverse colon and in the ascending colon, removed with a cold snare. Resected and retrieved. - A single non-bleeding colonic angioectasia. Treated with argon plasma coagulation (APC) . Clip was placed. - The examination was otherwise normal. Recommendation: - Advance diet as tolerated. - Continue present medications. - No aspirin, ibuprofen, naproxen, or other non-steroidal anti-inflammatory drugs for 10 days after polyp removal. - Await pathology results. - Repeat colonoscopy (date not yet determined) for surveillance based on pathology results. - Return sooner if symptoms occur. Polyps can be missed. - No MRI Studies for 30 days. EGD 06/21/19: Impression: - Normal examined duodenum. - Gastritis. Biopsied. - Z-line regular, 40 cm from the incisors. Recommendation: - Return patient to hospital [facility] for ongoing care. - Advance diet as tolerated. - Continue present medications. - Await pathology results. - No aspirin, ibuprofen, naproxen, or other non-steroidal anti-inflammatory drugs for 2 weeks. Results for BHAVNA SEGURA ( ) as of 06/24/2019 20:35 Ref. Range 06/18/2019 04:27 06/19/2019 04:57 06/20/2019 05:04 06/21/2019 05:40 06/22/2019 05:25 WBC COUNT Latest Ref Range: 4.23 - 9.07 K/uL 12.06 (H) 12.60 (H) 16.32 (H) 12.15 (H) 8.86 RBC Latest Ref Range: 4.30 - 5.89 M/UL 2.34 (L) 2.94 (L) 2.78 (L) 3.29 (L) 3.28 (L) Hemoglobin Latest Ref Range: 13.7 - 17.5 g/dL 6.9 (LL) 8.7 (L) 8.2 (L) 9.4 (L) 9.6 (L) Hematocrit Latest Ref Range: 40.1 - 51.0 % 21.3 (LL) 26.5 (L) 24.8 (L) 30.5 (L) 29.6 (L) Platelet Count Latest Ref Range: 163 - 337 K/uL 218 285 281 220 164 RDW Latest Ref Range: 11.6 - 14.4 % 16.1 (H) 15.7 (H) 15.9 (H) 16.0 (H) 16.2 (H) MCV Latest Ref Range: 79.0 - 92.2 FL 91.0 90.1 89.2 92.7 (H) 90.2 MCH Latest Ref Range: 25.7 - 32.2 PG 29.5 29.6 29.5 28.6 29.3 MCHC Latest Ref Range: 32.3 - 36.5 g/dL 32.4 32.8 33.1 30.8 (L) 32.4 MPV Latest Ref Range: 9.4 - 12.4 FL 11.2 11.9 11.5 11.3 12.9 (H) Results for BHAVNA SEGURA ( ) as of 06/24/2019 20:35 Ref. Range 06/20/2019 05:04 06/21/2019 05:40 06/22/2019 05:25 Sodium Latest Ref Range: 134 - 145 mmol/L 138 139 137 Potassium Latest Ref Range: 3.5 - 5.1 mmol/L 3.5 3.7 3.5 Chloride Latest Ref Range: 98 - 107 mmol/L 102 99 101 CO2 Latest Ref Range: 22 - 30 mmol/L 26 27 27 Glucose (Lab) Latest Ref Range: 70 - 99 mg/dl 136 (H) 93 121 (H) BUN Latest Ref Range: 9 - 20 mg/dl 113 (H) 108 (H) 100 (H) Creatinine Latest Ref Range: 0.8 - 1.5 mg/dl 6.4 (H) 6.3 (H) 6.1 (H) eGFR Latest Ref Range: See Interpretation Below ml/min/1.73ml Sq 10 10 11 Calcium Latest Ref Range: 8.3 - 10.1 mg/dl 7.1 (L) 7.4 (L) 6.8 (L) Anion Gap Latest Ref Range: 3 - 11 mmol/L 10 13 (H) 9 A/G Ratio Latest Ref Range: 0.8 - 2.0 ratio 1.2 1.2 1.1 BUN/Creatinine Ratio Latest Ref Range: 6 - 22 RATIO 18 17 16 Magnesium Latest Ref Range: 1.6 - 2.3 MG/DL 1.4 (L) 1.5 (L) 1.9 Protein,Total Latest Ref Range: 6.3 - 8.2 g/dl 5.4 (L) 5.9 (L) 5.4 (L) Albumin Latest Ref Range: 3.5 - 5.0 g/dl 2.9 (L) 3.2 (L) 2.8 (L) ALKALINE PHOSPHATASE Latest Ref Range: 40 - 150 U/L 46 54 42 AST Latest Ref Range: 17 - 59 U/L 27 35 50 ALT Latest Ref Range: 21 - 72 U/L 55 61 56 Total Bilirubin Latest Ref Range: 0.0 - 1.1 MG/DL 0.5 0.7 0.7 MAGNESIUM LEVEL Order: [id number] Status: Final result Visible to patient: No ([facility]) Ref Range & Units 2d ago 3d ago Magnesium 1.6 - 2.3 MG/DL 1.9 1.5Low ABO/RH Type B NEG Antibody Screen Interp NEG Resulting Agency GCBB Transfused 1 unit pRBC 06/18/19. Contains abnormal data VITAMIN D 25 HYDROXY (LEAL) Order: [id number] Status: Final result Visible to patient: No [facility] Ref Range & Units 12d ago Vitamin D 25 HYDROXY 32.0 - 100.0 ng/ml <12.8Low Results for BHAVNA SEGURA ( ) as of 06/24/2019 20:35 Ref. Range 06/11/2019 18:36 06/12/2019 01:25 PROLACTIN Latest Ref Range: 3.7 - 17.9 ng/ml 10.7 Pth Intact Latest Ref Range: 10.0 - 73.0 pg/ml 492.8 (H) Results for BHAVNA SEGURA ( ) as of 06/24/2019 20:35 Ref. Range 06/11/2019 19:48 Ph Latest Ref Range: 7.35 - 7.45 7.25 (L) PCO2 Latest Ref Range: 35 - 44 mmHg 33 (L) PO2 Latest Ref Range: 67 - 95 mmHg 70 % Saturation Latest Ref Range: 92.0 - 98.0 % 90.2 (L) Base Excess Latest Ref Range: -2 - 2 mmol/L -12 (L) ABG Conditions Unknown Room Air Since hospitalization has patient improved? He is aware his memory is slipping. Current patient concerns: memory and kidney concerns. He does not know what medications he is or is not taking on med review. His community health promoter's office called worried about his memory, to the point that they called Adult Protective Thursday after seeing him. He has to urinate frequently, every 1-2 hours. Has a mild cough. Visiting nurses called him today Patient Active Problem List Diagnosis Essential hypertension, benign Benign prostatic hyperplasia with urinary obstruction Type 2 diabetes mellitus with renal manifestations ([facility]) Leg cramps Tobacco use disorder Chronic renal insufficiency COPD (chronic obstructive pulmonary disease) (HCC) Obesity, unspecified Aortic stenosis CAD (coronary artery disease) Gross hematuria Elevated prostate specific antigen (PSA) Coronary artery disease involving [place] coronary artery of [place] heart without angina pectoris Type 2 diabetes mellitus with stage 4 chronic kidney disease ([facility]) Hip pain, bilateral Trochanteric bursitis of both hips S/P AVR (aortic valve replacement) Hx of CABG HTN (hypertension) Gout Sleep apnea Type 2 diabetes mellitus with stage 4 chronic kidney disease, without long-term current use of insulin ([facility]) EDILSON (acute kidney injury) ([facility]) Seizure ([facility]) Dementia associated with 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 ([facility]) Renal cyst, left CKD (chronic kidney disease), stage V ([facility]) Prostatism Past Medical History: Diagnosis Date Aortic stenosis BPH (benign prostatic hyperplasia) sees Dr. Grimes CAD (coronary artery disease) Chronic kidney disease (CKD) stage G4/A1, severely decreased glomerular filtration rate (GFR)between 15-29 mL/min/1.73 square meter and albuminuria creatinine ratio less than 30 mg/g ([facility]) Coronary artery disease Dr. Bell. h/o CHF 2014 Diabetes mellitus (HCC) Gout HTN (hypertension) Hx of CABG 2014 Dr.Lynn Bell is his climatology professor S/P AVR (aortic valve replacement) Sleep apnea never followed up on sleep study, agrees to set this up today 01/16/16 VHD (valvular heart disease) 2015 aortic valve replacement, equine Past Surgical History: Procedure Laterality Date CARDIAC CATH 03/26/12 COLONOSCOPY N/A 06/21/2019 Procedure: COLONOSCOPY; Surgeon: Jaida Daniels MD; Location: [facility] MAIN OR EGD N/A 06/21/2019 Procedure: ENDOSCOPY UPPER GI; Surgeon: Jaida Daniels MD; Location: [facility] MAIN OR CO RPLCMT AORTIC VALVE OPN ALLOGRAFT VALVE FREEHAND 10/04/2014 Porcine valve, [facility] [place] [facility] Medications as of 06/27/2019 Medication Sig Dispense Refill albuterol HFA (VENTOLIN) 108 (90 Base) MCG/ACT Inhalation Aero Soln Take 2 Puffs by inhalation EVERY SIX HOURS NEEDED (wheezing). 1 Inhaler 1 amLodipine (NORVASC) 5 MG Oral Tab Take 1 Tab by mouth DAILY. New lower dose 90 Tab 1 Aspirin 81 MG Oral Tab EC Take 1 Tab by mouth DAILY. atorvastatin (LIPITOR) 80 MG Oral Tab TAKE ONE TABLET BY MOUTH ONCE DAILY 30 Tab 5 bimatoprost (LUMIGAN) 0.03 % Ophthalmic Solution Place 1 Drop in both eyes EVERY BEDTIME. 1 drop both eyes 0 Blood Glucose Monitoring Suppl (BLOOD GLUCOSE METER) Does not apply Kit by Does not apply route. 1. Brand:Freestyle Insulinx 2. Dx:E11.9 3. Insulin dependent 4. Test Blood Glucose 4 time(s) A DAY ----before meals & at bedtime 1 Kit 0 Brinzolamide-Brimonidine (SIMBRINZA) 1-0.2 % Ophthalmic Suspension Place 1 Drop to the external eye THREE TIMES DAILY. Left eye 0 Cyanocobalamin (VITAMIN B-12) 1000 [address] Tab [address] 1 Tab under tongue DAILY. 30 Tab 0 Darifenacin Hydrobromide 15 MG Oral TABLET SR 24 HR TAKE ONE TABLET BY MOUTH ONCE DAILY 30 Tab 3 [START ON 06/26/2019] ergocalciferol (DRISDOL, CALCIFEROL, VITAMIN D) 1.25 MG (42764 UT) Oral Cap Take 1 Cap by mouth EVERY 7 DAYS. 5 Cap 0 finasteride (PROSCAR) 5 MG Oral Tab TAKE ONE TABLET BY MOUTH ONCE DAILY 90 Tab 1 fluticasone (FLONASE ALLERGY RELIEF) 50 MCG/ACT Nasal Suspension [place] 2 Sprays in nose DAILY. 1 Bottle 3 FREESTYLE INSULINX TEST In Vitro Strip USE DIRECTED THREE TIMES A DAY 100 Each 11 furosemide (LASIX) 40 MG Oral Tab Take 3 Tabs by mouth TWICE DAILY. 30 Tab 0 guaifenesin (ORGANIDIN-NR) 200 MG Oral Tab Take 1 Tab by mouth FOUR TIMES DAILY. 84 Tab 0 hydrALAZINE (APRESOLINE) 25 MG Oral Tab Take 1 Tab by mouth THREE TIMES DAILY. 120 Tab 0 isosorbide MONOnitrate (IMDUR) 30 MG Oral TABLET SR 24 HR Take 1 Tab by mouth DAILY. 30 Tab 0 loratadine (CLARITIN,ALAVERT) 10 MG Oral Tab Take 1 Tab by mouth EVERY OTHER DAY. 30 Tab 0 Magnesium 250 MG Oral Tab Take 1 Tab by mouth DAILY. 90 Tab 3 Mirabegron ER 50 MG Oral TABLET SR 24 HR Take 50 mg by mouth DAILY. 30 Tab 3 nicotine transdermal patch-daily (NICODERM) 7 MG/24HR Transdermal PATCH [address] 1 Patch onto skin DAILY. 30 Patch 0 pantoprazole (PROTONIX) 40 MG Oral Tab EC Take 1 Tab by mouth DAILY. 30 Tab 3 patiromer (VELTASSA) 8.4 g Oral Pack Take 8.4 g by mouth DAILY NEEDED (hyperkalemia). Polyethylene Glycol 3350 (MIRALAX PO) Take 17 g by mouth DAILY NEEDED (constipation). sodium bicarbonate 650 MG Oral Tab Take 1,300 mg by mouth THREE TIMES DAILY. Tamsulosin HCl (FLOMAX) 0.4 MG Oral Cap Take 0.4 mg by mouth DAILY. tiotropium (SPIRIVA HANDIHALER) 18 MCG Inhalation Cap Take 18 mcg by inhalation DAILY. Tiotropium [place]-Olodaterol (STIOLTO RESPIMAT) 2.5-2.5 MCG/ACT Inhalation Aero Soln Take 2 INHL by inhalation DAILY. 1 Inhaler 5 Tizanidine 2 MG Oral Tab Take 2 mg by mouth EVERY BEDTIME NEEDED ( muscle cramps). 30 Tab 1 No current facility-administered medications on file as of 06/27/2019. Allergies Allergen Reactions Diego Inhibitors Other Elevated [...] file Social Needs Financial resource strain: Not hard at all Food insecurity Worry: Never true Inability: Never true Transportation needs Medical: No Non-medical: No Tobacco Use Smoking status: Current Some Day Smoker Packs/day: 2.00 Years: 45.00 Pack years: 90.00 Types: Cigars Last attempt to quit: 06/22/2017 Years since quittin.0 Smokeless tobacco: Never Used Substance and Sexual Activity Alcohol use: No Drug use: No Sexual activity: Yes Partners: Female Lifestyle Physical activity Days per week: 5 days Minutes per session: 30 min Stress: Only a little Relationships Social connections Talks on phone: Once a week Gets together: Once a week Attends evangelical service: More than 4 times per year Active member of club or organization: Yes Attends meetings of clubs or organizations: More than 4 times per year Relationship status: Intimate partner violence Fear of current or ex partner: No Emotionally abused: No Physically abused: No Forced sexual activity: No Other Topics Concern Back Care Not Asked Bike Helmet Not Asked Blood Transfusions Not Asked Caffeine Concern No Exercise No Hobby Hazards Not Asked International Travel Not Asked Service Not Asked Occupational Exposure Not Asked Seat Belt Not Asked Self-Exams Not Asked Sleep Concern Not Asked Special Diet No Stress Concern No Weight Concern Yes Social History Narrative Lives in [facility],works at [employer]- 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 History reviewed. No pertinent family history. Health Maintenance Topic Date Due DTaP/Tdap/Td Vaccines (1 - Tdap) 1951 ZOSTER IMMUNIZATION SERIES (1 of 2) 1992 FOOT EXAM 07/23/2019 HEMOGLOBIN A1C 09/14/2019 LUNG CANCER SCREENING 01/12/2020 FALL RISK ASSESSMENT 02/15/2020 DEPRESSION SCREENING 06/27/2020 Diabetic Eye Exam 09/23/2020 HIV SCREENING Completed INFLUENZA VACCINE Completed PNEUMOCOCCAL 65+YRS Completed HEPATITIS A IMMUNIZATION SERIES Aged Out HPV IMMUNIZATION SERIES Aged Out MENINGOCOCCAL VACCINE IMM Aged Out ROS Review of Systems - General ROS: negative for - chills or fever,but he says he just feels a bit off ENT ROS: negative for - headaches, nasal congestion, visual changes Respiratory ROS: negative for - hemoptysis or shortness of breath, denies a cough but has a raspy cough here in the office. Cardiovascular ROS: negative for - chest pain, dyspnea on exertion, Palpitations; He has a lot of ankle edema. Gastrointestinal ROS: no abdominal pain, black or bloody stools, but still has soft stools. Genito-Urinary ROS: no dysuria, but has some hesitancy and frequent urination. Neuro: denies headache, focal weakness, numbness, He admits to memory problems. Exam: BP (!) 152/78 (BP Location: Left arm, Patient Position: Sitting) | Pulse 66 | Temp 100.2 F (37.9 C) (Tympanic) | Resp 20 | Ht 5' 7" (1.702 m) | Wt 162 lb 14.4 oz (73.9 kg) | SpO2 96% | BMI 25.51 kg/m Physical Exam Physical Examination: General appearance - alert, well appearing, and in no distress Mental status - alert, oriented to person, place, and time, normal mood, behavior, speech, dress, motor activity, and thought processes Eyes - pupils equal and reactive, extraocular eye movements intact, sclera anicteric Ears - bilateral TM's and external ear canals normal Throat: no erythema Neck - supple, no cervical or supraclavicular adenopathy, carotids upstroke normal bilaterally, no bruits, thyroid exam: thyroid is normal in size without nodules or tenderness, no neck masses palpated. Chest/Lungs - no wheezes, or rhonchi, but has mild right upper lobe rales, symmetric air entry, good aeration Heart - normal rate, regular rhythm, normal S1, S2, 3/6 sysolic murmurs heard best right upper sternal border, no rubs, clicks or gallops Abdomen - soft, non tender on palpation, nondistended, no masses or hepatosplenomegaly, bowel soundsnormal, normal to percussion, no guarding or rebound. No costervertebral angle tenderness Neurological - alert, oriented, normal speech, no gross focal findings or movement disorder noted Extremities - dorsalis pedis pulses normal, 1+ bilateral pedal edema to just above the ankle, no clubbing or cyanosis Memory six item cognitive screen: Score is 3 out of a possible 6 Clock drawing: Good, normal. ASSESSMENT/PLAN: ICD-9-CM ICD-10-CM 1. Hospital discharge follow-up V67.59 Z09 2. Prostatism 600.90 N40.0 REFER TO UROLOGY 3. Memory deficit 780.93 R41.3 REFER TO NEUROLOGY 4. CKD (chronic kidney disease), stage V (HCC) 585.5 N18.5 5. Anemia due to GI blood loss 280.0 D50.0 6. Bladder wall thickening 596.89 N32.89 7. Renal cyst, left 753.10 N28.1 US RETROPERITONEAL COMPLETE 8. 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 Cough 786.2 R05 XR CHEST 2 VIEW PA AND LATERAL (STANDARD) 10. Chronic obstructive pulmonary disease, unspecified COPD type ([facility]) 496 J44.9 Coordination of care. - Additional testing related to hospitilization was requested today: yes See orders. I viewed his chest xray and it is much improved from his chest xray of . We will see what the radiologist reading says. I confirmed the patient's understanding of the diagnosis and plan of care. We called his community health promoter and they will see him today. I will refer him to another urologist and to neurology. I gave him a letter go stop working, permanent disability, for multiple medical problems and early dementia. He did appear safe to go home, understood our discussion. We also spoke with his girlfriend Vaishali in [place] on the phone about all of the above. I have encouraged him to be closer to friends and family so they can help him with care, consider adult apartments for help as well. Follow up 3 weeks. Specific education that was provided today: Patient Instructions You have some dementia so I recommend you stop working, permanently. I gave you a letter to give to your employer. You then need to meet with HR at work regarding if you are eligible for disability vs [employer] pension. You need to follow up closely with Dr Friend for your kidney's. We called his office today and they were worried when you left Thursday. They were not otherwise planning to readmit you to the hospital. They want to see you again today at 1:30: Please go right there from here: Dr Friend. I am referring you to Dr Grimes, urologist in [place] I am referring you to Neurology for your memory, in [place]. You need to take their calls and write down the appointment they give you. Please call the visiting nurses back so they can come out to your house, check you, and help you with your many medications. I ordered a kidney ultrasound to follow up on a complex left renal cyst found on CT when you were [facility]/ Please do a chest xray today since you have a mild cough and low grade temp of 100.1. It appears better than when you were at [facility] but if the radiologist feels there is an infection,we will call you and start an antibiotic. If you have more problems urinating, fevers, chills, problems breathing, then go to [facility] ER. Author: Romina Bolden MD 06/27/2019 12:47 documented in this encounter Plan of Treatment Date Type Specialty Care Team Description 07/18/2019 Office Visit Family Practice Romina Bolden MD [address] [place] [address] [phone] Name Type Priority Associated Diagnoses Date/Time XR CHEST 2 VIEW PA AND Imaging Routine Cough 06/27/2019 12:13 PM EST LATERAL (STANDARD) Name Type Priority Associated Diagnoses Order Schedule US RETROPERITONEAL COMPLETE Imaging Routine Renal cyst, left Expected: 06/27/2019, Expires: 06/26/2020 XR CHEST 2 VIEW PA AND Imaging Routine Cough Expected: LATERAL (STANDARD) 06/27/2019, Expires: 06/26/2020 Name Type Priority Associated Diagnoses Order Schedule REFER TO NEUROLOGY Referral Routine Memory deficit Expected: 06/27/2019, Expires: 06/27/2020 REFER TO UROLOGY Referral Routine Prostatism Expected: 06/27/2019, Expires: 06/27/2020 Health Maintenance Due Date Last Done Comments DTaP/Tdap/Td Vaccines (1 - 1951 Tdap) ZOSTER IMMUNIZATION SERIES 1992 (1 of 2) FOOT EXAM 07/23/2019 07/23/2018, 07/23/2018, 07/23/2018, Additional history exists HEMOGLOBIN A1C 09/14/2019 03/16/2019, 01/03/2019, 08/11/2018, Additional history exists LUNG CANCER SCREENING 01/12/2020 01/11/2019, 01/11/2019, 01/05/2019, Additional history exists FALL RISK ASSESSMENT 02/15/2020 02/14/2019, 02/14/2019 DEPRESSION SCREENING 06/27/2020 06/27/2019, 06/27/2019 Diabetic Eye Exam 09/23/2020 09/23/2018, 09/23/2018, 04/05/2018, [...] Author Type Problems Progress Blood Pressure Blood 152/78 No Yuan, < 140/90 Pressure (06/27/2019 Romina Kaur, 11:20 AM EST) Note: This is an individualized treatment (blood pressure) goal for Bhavna Segura: Displayed above (on the left) is your goal for blood pressure control. Your most recent blood pressure is also shown above, on the right. You should try to achieve blood pressures that are lower than your goal listed above (on the left). Smoking Cessation COPD No Romina Bolden MD Note: This is an individualized treatment (COPD) goal for Bhavna Segura: Quit smoking immediately! Your provider has information and resources that may help you to quit. Glycohemoglobin A1c < 7.0 Diabetes 5.5 (03/16/2019 11:46 No Romina Bolden AM, EDTBrennen Kaur MD Note: This is an individualized treatment (diabetes control, HgbA1C) goal for Bhavna Segura: Displayed above is your progress towards your HgbA1C goal. Your goal is shown above (on the left); your most recent HgbA1C is shown on the right. Note that lower numbers are better. Keep immunizations current Lifestyle No Romina Bolden MD Note: This is an individualized lifestyle goal for Bhavna Segura: Please be sure to keep up-to-date on recommended immunizations. For example, this would include a yearly influenza vaccine. Immunization status can be seen by looking at the Health Maintenance sections of your e[facility], Plan of Care, and any After Visit Summaries. Take all prescribed medications as Self-management No Romina Bolden MD directed Note: This is an individualized self-management goal for Bhavna Segura: Please take all prescribed medications as [...] ongoing basis. documented as of this encounter Implants Implanted Type Area Rubber Goods Tester Device Shelf Model / Identifier Expiration Date Serial / Lot Resolution 350 Clip N/A: Colon 03/22/2022 [id number] / Implanted: Qty: 1 on 06/21/2019 by Jaida Daniels MD at [facility] / [id number] Description:Charged by GI documented as of this encounter Results Not on filedocumented in this encounter Visit Diagnoses Diagnosis Prostatism Unspecified hyperplasia of prostate without urinary obstruction and other lower urinary tract symptoms (LUTS) Memory deficit Memory loss CKD (chronic kidney disease), stage V (HCC) Chronic kidney disease, Stage V Anemia due to GI blood loss Iron deficiency anemia secondary to blood loss (chronic) Bladder wall thickening Other specified disorders of bladder Renal cyst, 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 (HCC) Cough Chronic obstructive pulmonary disease, unspecified COPD type (HCC) Hospital discharge follow-up Other follow-up examination documented in this encounter Insurance Payer Benefit Plan / Subscriber ID Effective Dates Phone Address Type Group [employer] xxxxxxxxxxxx 2016-Present [employer] Guarant[employer] Name Account Type Relation to Date of Phone Billing Patient Address Bhavna Segura Personal/Family 1940 [address] (Home) [phone] [place] [address] (Work) documented as of this encounter Advance Directives Code Status Date Activated Date Inactivated Comments Full Code 06/11/2019 5:57 PM Does the patient have decision making capacity? Yes Order was discussed with: Patient I discussed all options and patient/surrogate requested and agreed to: Full Code
--- OUTSIDE RECORDS SUMMARY | 2019-06-30 13:54 | XMS REPORT | Continuity of Care Document ---
:1940 External Reference #:[id number] Author Name Joan Friend MD (transmitted by agent of provider Yarely Islas) Address [address] [place] [address] Care Team Providers Name Role Phone Mikaela Torres MD - Care Team Information Process Trainer [phone] Endocrinology, Diabetes & Metabolism Romina Bolden MD - Care Team Information Process Trainer Family Medicine Problems Active Problems Provider Date Chest pain JAQUAN Montemayor Onset: 09/16/2013 Dyspnea JAQUAN Montemayor Onset: 09/16/2013 Aortic valve disorder JAQUAN Montemayor Onset: 09/16/2013 Transient cerebral ischemia Ambika Bell M.D. Onset: 11/04/2013 Aphasia Ambika Bell M.D. Onset: 11/04/2013 Essential hypertension Luis Enrique Liu M.D., [facility], Onset: 02/08/2014 [facility] Postoperative Wound Closure Encounter Luis Enrique Liu M.D., [facility], Onset: 2013 [facility] Anemia Ambika Bell M.D. Onset: 05/30/2014 Renal [...] Cigarette Smoker End: Unknown Smoking Status Reviewed: 06/27/19 Former Cigarette Smoker ETOH Use Denies alcohol use Tobacco Use Start: Unknown Patient is a current 1-2 cigars a day smoker, smokes every day Recreational Drug Use Denies Drug Use Exercise Type/Frequency Exercises sporadically Allergies, Adverse Reactions, Alerts Active Allergies Reaction Severity Comments Date Keflex Nausea and Vomiting 03/31/2012 Medications Active Medications SIG Qnty Indications Ordering Date Provider Calcium Acetate (Phos 1 capsule by 180caps N18.5 Mohammad A. 06/27/2019 Binder) mouth three times MD Ronna 667mg Capsules daily after meals Amlodipine Besylate 10 mg by mouth 90tabs [...] 05/12/2011 0.4mg Capsules every day MD Heber Vitamin B-12 2 tabs by mouth Unknown Natural every day 500mcg Tablets SM Magnesium Oxide 1 by mouth every Unknown 250mg day Tablets Atorvastatin Calcium 1 tablet po daily Cannariato, 80mg Aron Sue MD Amlodipine Besylate 1 by mouth every Unknown 10mg day Tablets Tizanidine HCL daily prn Cannariato, 2mg Romina Tapia, Tablets Doxercalciferol daily Teodoro Minor MD 0.5mcg Capsules Finasteride 1 tab po daily Unknown 5mg Tablets Cpap W/ Oxygen qhs ( has but Unknown Device does not use ) Pantoprazole Sodium 1 by mouth every 90tabs Unknown 40mg day Tablets Tamsulosin HCL 1 by mouth every 90caps Unknown 0.4mg day Capsules Enablex 1 tab po every Unknown 15mg Tablets ER day 24HR History Medications Colchicine Take 2 tabs po 10tabs Radha Mack, 04/18/2019 - 0.6mg now, then 1 tab po M.D. 04/19/2019 Tablets one hour later. Then, take one tab po daily until symptoms subside Immunizations CPT Code Status Date Vaccine Lot # [id number] Given 05/20/2010 Pneumonia Vaccine 67544 Given 05/20/2010 Fluzone High Dose 26041 Given 04/09/2009 Tetanus And Diptheria (Td) For Adult Use Preservative Free 22753 Given 04/09/2009 Administration Swine Flu Shot Vital Signs Date Vital Result Comment 06/27/2019 1:37pm Height 67 inches 5'7" Weight 163.00 lb Heart Rate 71 /min BP Systolic Sitting 143 mmHg L arm BP Diastolic Sitting 65 mmHg L arm O2 % BldC Oximetry 97 % BMI (Body Mass Index) 25.5 kg/m2 05/04/2019 4:10pm Height 67 inches 5'7" Weight 160.00 lb Heart Rate 64 /min BP Systolic 110 mmHg BP Diastolic 64 mmHg Respiratory Rate 18 /min Body Temperature 97.6 F Pain Level 0 BMI (Body Mass Index) 25.1 kg/m2 Results Test Acquired Date Facility Test Result H/L Range Note Neph Routine 06/24/2019 [facility] Total Protein 76 mg/dL [address] [place] [address] [phone] Creatinine Random Urine 85.77 mg/dL 2 CBC Auto 06/24/2019 [facility] White Blood 8.3 10^3/uL Normal 3.5-10.[address] [place] [address] [phone] Red Blood Count 2.85 10^6/uL Low 4.18-5.48 Hemoglobin 8.7 g/dL Low 14.0-18.0 Hematocrit 25 % Low 42-52 Mean Corpuscular Volume 89 fL Normal 80-94 Mean Corpuscular Hemoglobin 31 pg Normal 27-31 Mean Corpuscular HGB Conc 34 g/dL Normal 31-36 Red Cell Distribution Width 17 % High 10-15 Platelet Count 194 10^3/uL Normal 150-450 Mean Platelet Volume 7.4 fL Normal 7.4-10.4 Abs Neutrophils 6.3 10^3/uL Normal 1.5-7.7 Abs Lymphocytes 0.6 10^3/uL Low 1.0-4.8 Abs Monocytes 1.2 10^3/uL High 0-0.8 Abs Eosinophils 0.2 10^3/uL Normal 0-0.6 Abs Basophils 0.0 10^3/uL Normal 0-0.2 Abs Nucleated RBC 0.0 10^3/uL Granulocyte % 76.2 % Lymphocyte % 6.8 % Monocyte % 14.3 % Eosinophil % 2.4 % Basophil % 0.3 % Nucleated Red Blood Cells % 0.1 Basic Metabolic 06/24/2019 [facility] Sodium 141 mmol/L Normal 135-145 Panel [address] [place] [address] [phone] Potassium 3.4 mmol/L Low 3.5-5.0 Chloride 104 mmol/L Normal 101-111 Co2 Carbon Dioxide 27 mmol/L Normal 22-32 Anion Gap 10 mmol/L Normal 2-11 Glucose 148 mg/dL High 70-100 Blood Urea Nitrogen 78 mg/dL High 6-24 Creatinine 5.86 mg/dL High 0.67-1.17 BUN/Creatinine Ratio 13.3 Normal 8-20 Calcium 6.9 mg/dL Low 8.6-10.3 Egfr Non- 9.4 >60 Egfr 11.4 >60 3 Urinalysis Profile 06/24/2019 [facility] Urine Color Yellow [address] [place] [address] [phone] Urine Appearance Clear Urine Specific [place] 1.010 Normal 1.010-1.030 Urine pH 8.0 Normal 5-9 Urine Urobilinogen Negative Negative Urine Ketones Negative Negative Urine Protein 2+(100 mg/dL) Abnormal Negative Urine Leukocytes 1+ Abnormal Negative Urine Blood 1+ Abnormal Negative Urine Nitrite Negative Negative Urine Bilirubin Negative Negative Urine Glucose Negative Negative Urine White Blood Cell 2+(11-20/hpf) Abnormal Absent Urine Red Blood Cell Trace(0-2/hpf) Absent Urine Bacteria Absent Absent Urine Squamous Epithelial Cell Present Abnormal Absent Urine Culture And 06/24/2019 [facility] Urine Culture SEE RESULT [address] [place] [address] [phone] Laboratory test 04/20/2019 [facility] Hemoglobin A1c 4.5 % Normal 4.0- [address] (Glyco HGB) 5.6 [place] [address] [phone] Neph Routine 03/23/2019 [facility] Total Protein 92 mg/dL [address] [place] [address] [phone] Creatinine Random Urine 152.26 mg/dL Urine Culture And 03/23/2019 [facility] Urine SEE RESULT [address] [address] [phone] CBC Auto Diff 03/23/2019 [facility] White Blood 6.0 10^3/uL Normal 3.5-[address] Count 0.8 [place], [place] [id number] [phone] Red Blood Count 2.89 10^6/uL Low 4.18-5.48 [...] % Nucleated Red Blood Cells % 0.0 Urinalysis Profile 03/23/2019 [facility] Urine Color Yellow [address] [place] [address] [phone] Urine Appearance Clear Urine Specific [place] 1.014 Normal 1.010-1.030 Urine pH 5.0 Normal [...] Absent Urine Hyaline Casts Present Abnormal Absent Basic Metabolic 03/23/2019 [facility] Sodium 139 mmol/L Normal 135-145 Panel [address] [place] [address] [phone] Potassium 4.8 mmol/L Normal 3.5-5.0 Chloride 108 mmol/L Normal 101-111 Co2 Carbon Dioxide 23 mmol/L Normal 22-32 Anion Gap 8 mmol/L Normal 2-11 Glucose 135 mg/dL High 70-100 Blood Urea Nitrogen 51 mg/dL High 6-24 Creatinine 2.71 mg/dL High 0.67-1.17 BUN/Creatinine Ratio 18.8 Normal 8-20 Calcium 8.3 mg/dL Low 8.6-10.3 Egfr Non- 23.0 >60 Egfr 27.8 >60 7 Protein Electrophoresis Urine 03/18/2019 N2N/CCD Import Impression See Comment Albumin/Globulin Ratio 1.10 Gamma Globulin 11 Immunofixation Urine See Comment Total Protein(Pep) Urine 57 Beta Globulin 18 Alpha-2 Globulin 14 Alpha-1 Globulin 5 Albumin 52 Protein Electrophoresis 03/16/2019 N2N/CCD Import Immunofixation See Comment Serum Impression See Comment Albumin/Globulin Ratio 1.05 Gamma Globulin 0.9 0.6-1.6 Beta Globulin 0.7 0.7-1.2 Alpha-2 Globulin 0.7 0.6-1.0 Alpha-1 Globulin 0.3 0.1-0.3 Albumin 2.8 Abnormal 3.4-4.7 Total Protein(Pep) 5.4 Abnormal 6.3 - 7.9 Anti Nuclear 03/16/2019 N2N/CCD Import Anti Nuclear 0.2 Antibody Antibody Juarez Lambda Free 03/16/2019 N2N/CCD Import Lambda Free Light 4.08 Abnormal Light Chains Chain Juarez Free Light Chain 11.4 Abnormal Juarez/Lambda Free Light Chain 2.79 Abnormal Basic Metabolic Panel 03/13/2019 N2N/CCD Import Egfr 29.1 >60 Egfr Non- 24.0 >60 Calcium 7.9 Low 8.6-10.3 BUN/Creatinine Ratio 17.6 8-20 Creatinine 2.61 High 0.67-1.17 Blood Urea Nitrogen 46 High 6-24 Glucose 153 High 70-100 Anion Gap 5 2-11 Co2 Carbon Dioxide 21 Low 22-32 Chloride 110 101-111 Potassium 4.8 3.5-5.0 Sodium 136 135-145 CBC Auto Diff 03/13/2019 N2N/CCD Import White Blood Count 6.2 3.5-10.8 Nucleated Red Blood Cells % 0.0 Basophil % 1.1 Eosinophil % 2.9 Monocyte % 10.2 Lymphocyte % 16.9 Granulocyte % 68.9 Abs Nucleated RBC 0.0 Abs Basophils 0.1 0-0.2 Abs Eosinophils 0.2 0-0.6 Abs Monocytes 0.6 0-0.8 Abs Lymphocytes 1.1 1.0-4.8 Abs Neutrophils 4.3 1.5-7.7 Mean Platelet Volume 7.4 7.4-10.4 Platelet Count 286 150-450 Red Cell Distribution Width 16 High 10-15 Mean Corpuscular HGB Conc 36 31-36 Mean Corpuscular Hemoglobin 31 27-31 Mean Corpuscular Volume 87 80-94 Hematocrit 24 Low 42-52 Hemoglobin 8.5 Low 14.0-18.0 Red Blood Count 2.75 Low 4.18-5.48 Creatinine 24HR Urine 03/12/2019 N2N/CCD Import Urine Total Volume 2750 Urine Collection Time 24 Urine Creatinine/24HR 1277.10 600-1800 Urine Creatinine Concentration 46.44 CBC Auto Diff 03/12/2019 N2N/CCD Import Nucleated Red Blood Cells % 0.0 Basophil % 0.9 Eosinophil % 2.5 Monocyte % 8.1 Lymphocyte % 11.5 Granulocyte % 77.0 Abs Nucleated RBC 0.0 Abs Basophils 0.1 0-0.2 Abs Eosinophils 0.2 0-0.6 Abs Monocytes 0.7 0-0.8 Abs Lymphocytes 0.9 Low 1.0-4.8 Abs Neutrophils 6.3 1.5-7.7 Mean Platelet Volume 6.9 Low 7.4-10.4 Platelet Count 310 150-450 Red Cell Distribution Width 16 High 10-15 Mean Corpuscular HGB Conc 35 31-36 Mean Corpuscular Hemoglobin 30 27-31 Mean Corpuscular Volume 88 80-94 Hematocrit 25 Low 42-52 Hemoglobin 8.6 Low 14.0-18.0 Red Blood Count 2.85 Low 4.18-5.48 White Blood Count 8.2 3.5-10.8 Basic Metabolic Panel 03/12/2019 N2N/CCD Import Sodium 136 135-145 Egfr Non- 26.2 >60 Calcium 8.0 Low 8.6-10.3 BUN/Creatinine Ratio 16.1 8-20 Creatinine 2.42 High 0.67-1.17 Egfr 31.7 >60 Blood Urea Nitrogen 39 High 6-24 Glucose 217 High 70-100 Anion Gap 6 2-11 Co2 Carbon Dioxide 20 Low 22-32 Chloride 110 101-111 Potassium 4.7 3.5-5.0 Total Protein 24 Hour Urine 03/12/2019 N2N/CCD Import Urine Total Volume 2750 Urine Collection Time 24 Urine Total Protein/24HR 2282 High 0-165 Urine TP Concentration 83 Ammonia 03/11/2019 N2N/CCD Import Ammonia 43 16-53 Comprehensive Metabolic 03/11/2019 N2N/CCD Import Egfr 28.5 >60 Panel Dominican Egfr Non- 23.6 >60 Ast 15 13-39 Alt 17 7-52 Alkaline Phosphatase 49 34-104 Total Bilirubin 0.40 0.2-1.0 Albumin/Globulin Ratio 1.2 1-3 Globulin 2.6 2-4 Albumin 3.1 Low 3.2-5.2 Total Protein 5.7 Low 6.4-8.9 Calcium 7.7 Low 8.6-10.3 BUN/Creatinine Ratio 13.2 8-20 Creatinine 2.65 High 0.67-1.17 Blood Urea Nitrogen 35 High 6-24 Glucose 121 High 70-100 Anion Gap 3 2-11 Co2 Carbon Dioxide 21 Low 22-32 Chloride 112 High 101-111 Potassium 4.9 3.5-5.0 Sodium 136 135-145 CBC Auto Diff 03/11/2019 [facility] Import Hemoglobin 8.3 Low 14.0-18.0 Nucleated Red Blood Cells % 0.0 Basophil % 0.6 Eosinophil % 2.6 Monocyte % 10.0 Lymphocyte % 12.9 Abs Eosinophils 0.2 0-0.6 Abs Monocytes 0.9 High 0-0.8 Abs Lymphocytes 1.2 1.0-4.8 Granulocyte % 73.9 Abs Nucleated RBC 0.0 Abs Basophils 0.1 0-0.2 Abs Neutrophils 6.8 1.5-7.7 Mean Platelet Volume 6.5 Low 7.4-10.4 Platelet Count 300 150-450 Red Cell Distribution Width 16 High 10-15 Mean Corpuscular HGB Conc 34 31-36 Mean Corpuscular Hemoglobin 30 27-31 Mean Corpuscular Volume 88 80-94 Hematocrit 25 Low 42-52 Red Blood Count 2.81 Low 4.18-5.48 White Blood Count 9.2 3.5-10.8 Urinalysis 03/11/2019 [facility] Import Urine Yeast Present Abnormal Absent Urine Squamous Epithelial Cell Present Abnormal Absent Urine Bacteria 1+ Abnormal Absent Urine Red Blood Cell 2+(6-10/hpf) Abnormal Absent Urine White Blood Cell 3+(>20/hpf) Abnormal Absent Urine Glucose Negative Negative Urine Bilirubin Negative Negative Urine Nitrite Negative Negative Urine Blood 1+ Abnormal Negative Urine Leukocytes 3+ Abnormal Negative Urine Protein 1+(30 mg/dL) Abnormal Negative Urine Ketones Negative Negative Urine Urobilinogen Negative Negative Urine PH 7.0 5-9 Urine Specific [place] 1.009 Low 1.010-1.030 Urine Appearance Cloudy Urine Color Yellow Urinalysis 03/11/2019 [facility] Import Urine Bacteria 1+ Abnormal Absent Urine Red Blood Cell 3+(>10/hpf) Abnormal Absent Urine White Blood Cell 3+(>20/hpf) Abnormal Absent Urine Glucose Negative Negative Urine Bilirubin Negative Negative Urine Nitrite Negative Negative Urine Blood 1+ Abnormal Negative Urine Leukocytes 3+ Abnormal Negative Urine Protein 1+(30 mg/dL) Abnormal Negative Urine Ketones Negative Negative Urine Urobilinogen Negative Negative Urine PH 7.0 5-9 Urine Specific [place] 1.008 Low 1.010-1.030 Urine Appearance Turbid Urine Color Yellow Urine Yeast Present Abnormal Absent Urine Squamous Epithelial Cell Present Abnormal Absent Urine Bacteria 1+ Abnormal Absent Urine Red Blood Cell 2+(6-10/hpf) Abnormal Absent Urine White Blood Cell 3+(>20/hpf) Abnormal Absent Urine Glucose Negative Negative Urine Bilirubin Negative Negative Urine Nitrite Negative Negative Urine Blood 1+ Abnormal Negative Urine Leukocytes 3+ Abnormal Negative Urine Protein 1+(30 mg/dL) Abnormal Negative Urine Ketones Negative Negative Urine Urobilinogen Negative Negative Urine PH 7.0 5-9 Urine Specific [place] 1.009 Low 1.010-1.030 Urine Appearance Cloudy Urine Color Yellow CBC Auto Diff 03/10/2019 N2N/CCD Import Abs Neutrophils 5.0 1.5-7.7 Mean Platelet Volume 7.0 Low 7.4-10.4 Platelet Count 338 150-450 Red Cell Distribution Width 16 High 10-15 Mean Corpuscular HGB Conc 34 31-36 Mean Corpuscular Hemoglobin 30 27-31 Mean Corpuscular Volume 87 80-94 Hematocrit 28 Low 42-52 Hemoglobin 9.3 Low 14.0-18.0 Red Blood Count 3.15 Low 4.18-5.48 White Blood Count 7.2 3.5-10.8 Nucleated Red Blood Cells % 0.0 Basophil % 1.1 Eosinophil % 3.2 Monocyte % 9.9 Lymphocyte % 16.8 Granulocyte % 69.0 Abs Nucleated RBC 0.0 Abs Basophils 0.1 0-0.2 Abs Eosinophils 0.2 0-0.6 Abs Monocytes 0.7 0-0.8 Abs Lymphocytes 1.2 1.0-4.8 Magnesium 03/10/2019 N2N/CCD Import Magnesium 1.6 Low 1.9-2.7 Basic Metabolic 03/10/2019 N2N/CCD Import Egfr 27.2 >60 Panel Dominican Egfr Non- 22.5 >60 Calcium 8.1 Low 8.6-10.3 BUN/Creatinine Ratio 11.2 8-20 Creatinine 2.76 High 0.67-1.17 Blood Urea Nitrogen 31 High 6-24 Glucose 102 High 70-100 Anion Gap 5 2-11 Co2 Carbon Dioxide 22 22-32 Chloride 110 101-111 Potassium 5.1 High 3.5-5.0 Sodium 137 135-145 Basic Metabolic Panel 03/09/2019 N2N/CCD Import Chloride 112 High 101- 111 Egfr 22.6 >60 Egfr Non- 18.7 >60 Calcium 7.9 Low 8.6-10.3 BUN/Creatinine Ratio 10.8 8-20 Creatinine 3.24 High 0.67-1.17 Blood Urea Nitrogen 35 High 6-24 Glucose 120 High 70-100 Anion Gap 4 2-11 Co2 Carbon Dioxide 20 Low 22-32 Potassium 5.6 High 3.5-5.0 Sodium 136 135-145 Point Of Care 02/06/2019 N2N/CCD Import Point Of Care 120 High 70-100 Glucose Glucose Point Of Care Glucose 122 High 70-100 Point Of Care 02/06/2019 N2N/CCD Import Point Of Care 122 High 70-100 Glucose Glucose Basic Metabolic 02/06/2019 N2N/CCD Import Calcium 8.3 Low 8.6-10.3 Panel Egfr 35.8 >60 Egfr Non- 29.6 >60 BUN/Creatinine Ratio 19.3 8-20 Creatinine 2.18 High 0.67-1.17 Blood Urea Nitrogen 42 High 6-24 Glucose 92 70-100 Anion Gap 6 2-11 Co2 Carbon Dioxide 18 Low 22-32 Chloride 114 High 101-111 Potassium 5.2 High 3.5-5.0 Sodium 138 135-145 Point Of Care 02/05/2019 N2N/CCD Import Point Of Care 104 High 70-100 Glucose Glucose Basic Metabolic 02/05/2019 N2N/CCD Import Egfr 29.3 >60 Panel Dominican Egfr Non- 24.2 >60 Calcium 8.3 Low 8.6-10.3 BUN/Creatinine Ratio 19.3 8-20 Creatinine 2.59 High 0.67-1.17 Blood Urea Nitrogen 50 High 6-24 Glucose 99 70-100 Anion Gap 4 2-11 Co2 Carbon Dioxide 17 Low 22-32 Chloride 115 High 101-111 Potassium 5.7 High 3.5-5.0 Sodium 136 135-145 Point Of Care 02/05/2019 N2N/CCD Import Point Of Care 104 High 70-100 Glucose Glucose Basic Metabolic 02/05/2019 N2N/CCD Import Egfr Non- 27.4 >60 Panel Dominican Egfr 33.1 >60 Calcium 8.9 8.6-10.3 BUN/Creatinine Ratio 19.7 8-20 Creatinine 2.33 High 0.67-1.17 Blood Urea Nitrogen 46 High 6-24 Glucose 78 70-100 Anion Gap 7 2-11 Co2 Carbon Dioxide 17 Low 22-32 Chloride 114 High 101-111 Potassium TNP 3.5-5.0 Sodium 138 135-145 Potassium Redraw 02/05/2019 N2N/CCD Import Potassium Redraw 5.2 High 3.5- 5.0 Point Of Care 02/05/2019 N2N/CCD Import Point Of Care 107 High 70-100 Glucose Glucose Point Of Care 02/05/2019 N2N/CCD Import Point Of Care 113 High 70-100 Glucose Glucose Point Of Care Glucose 104 High 70-100 Point Of Care 02/04/2019 [facility]N/[facility] Import Point Of Care 185 High 70-100 Glucose Glucose Point Of Care Glucose 128 High 70-100 Point Of Care 02/04/2019 N[facility] Import Point Of Care Glucose 128 High 70 -100 Glucose CBC Auto Diff 02/04/2019 N2N/CCD Import Nucleated Red Blood 0.1 Cells % Basophil % 0.6 Eosinophil % 4.1 Monocyte % 10.0 Lymphocyte % 20.6 Granulocyte % 64.7 Abs Nucleated RBC 0.0 Abs Basophils 0.0 0-0.2 Abs Eosinophils 0.2 0-0.6 Abs Monocytes 0.5 0-0.8 Abs Lymphocytes 1.1 1.0-4.8 Abs Neutrophils 3.5 1.5-7.7 Mean Platelet Volume 8.2 7.4-10.4 Platelet Count 169 150-450 Red Cell Distribution Width 16 High 10-15 Mean Corpuscular HGB Conc 35 31-36 Mean Corpuscular Hemoglobin 31 27-31 Mean Corpuscular Volume 90 80-94 Hematocrit 32 Low 42-52 Hemoglobin 11.1 Low 14.0-18.0 Red Blood Count 3.56 Low 4.18-5.48 White Blood Count 5.3 3.5-10.8 Basic Metabolic Panel 02/04/2019 [facility] Import Egfr 25.5 >60 Egfr Non- 21.1 >60 Calcium 7.7 Low 8.6-10.3 BUN/Creatinine Ratio 15.8 8-20 Creatinine 2.92 High 0.67-1.17 Blood Urea Nitrogen 46 High 6-24 Glucose 112 High 70-100 Anion Gap 4 2-11 Co2 Carbon Dioxide 17 Low 22-32 Chloride 117 High 101-111 Potassium 5.3 High 3.5-5.0 Sodium 138 135-145 Point Of Care 02/04/2019 N[facility]N/[facility] Import Point Of Care 105 High 70-100 Glucose Glucose Point Of Care Glucose 131 High 70-100 Point Of Care 02/04/2019 N2N/CCD Import Point Of Care 131 High 70-100 Glucose Glucose Basic Metabolic 02/03/2019 N2N/CCD Import Egfr 21.3 >60 Panel Dominican Egfr Non- 17.6 >60 Calcium 8.8 8.6-10.3 BUN/Creatinine Ratio 14.7 8-20 Creatinine 3.41 High 0.67-1.17 Blood Urea Nitrogen 50 High 6-24 Glucose 111 High 70-100 Anion Gap 3 2-11 Co2 Carbon Dioxide 22 22-32 Chloride 111 101-111 Potassium 6.0 High 3.5-5.0 Sodium 136 135-145 Urinalysis 02/03/2019 N2N/[facility] Import Urine Glucose Negative Negative Urine Bilirubin Negative Negative Urine Nitrite Negative Negative Urine Blood Negative Negative Urine Leukocytes Negative Negative Urine Protein Negative Negative Urine Ketones Negative Negative Urine Urobilinogen Negative Negative Urine PH 6.0 5-9 Urine Specific [place] 1.011 1.010-1.030 Urine Appearance Clear Urine Color Yellow Urine Electrolytes 02/03/2019 N[facility]N/[facility] Import Urine Random Chloride 81 Urine Random Potassium 34.1 Urine Random Sodium 81 Basic Metabolic Panel 02/03/2019 N2N/CCD Import Egfr 23.8 >60 Egfr Non- 19.7 >60 Calcium 8.3 Low 8.6-10.3 BUN/Creatinine Ratio 15.8 8-20 Creatinine 3.10 High 0.67-1.17 Blood Urea Nitrogen 49 High 6-24 Glucose 91 70-100 Anion Gap 2 2-11 Co2 Carbon Dioxide 20 Low 22-32 Chloride 113 High 101-111 Potassium 5.7 High 3.5-5.0 Sodium 135 135-145 Point Of Care 02/03/2019 N2N/[facility] Import Point Of Care Glucose 148 High 70 -100 Glucose CBC Auto Diff 02/03/2019 N2N/[facility] Import Hematocrit 34 Low 42-52 Hemoglobin 11.5 Low 14.0-18.0 Red Blood Count 3.78 Low 4.18-5.48 White Blood Count 5.8 3.5-10.8 Mean Corpuscular Volume 90 80-94 Abs Lymphocytes 1.2 1.0-4.8 Abs Neutrophils 3.8 1.5-7.7 Mean Platelet Volume 8.0 7.4-10.4 Platelet Count 183 150-450 Red Cell Distribution Width 16 High 10-15 Mean Corpuscular HGB Conc 34 31-36 Mean Corpuscular Hemoglobin 30 27-31 Nucleated Red Blood Cells % 0.0 Basophil % 0.6 Eosinophil % 3.7 Monocyte % 10.3 Lymphocyte % 19.9 Granulocyte % 65.5 Abs Nucleated RBC 0.0 Abs Basophils 0.0 0-0.2 Abs Eosinophils 0.2 0-0.6 Abs Monocytes 0.6 0-0.8 Basic Metabolic Panel 02/03/2019 N2N/CCD Import Egfr 20.2 >60 Egfr Non- 16.7 >60 Calcium 8.2 Low 8.6-10.3 BUN/Creatinine Ratio 14.8 8-20 Creatinine 3.57 High 0.67-1.17 Blood Urea Nitrogen 53 High 6-24 Glucose 92 70-100 Anion Gap 5 2-11 Co2 Carbon Dioxide 18 Low 22-32 Chloride 113 High 101-111 Potassium 6.2 Critical high 3.5-5.0 Sodium 136 135-145 Point Of Care 02/03/2019 N2N/CCD Import Point Of Care 167 High 70-100 Glucose Glucose Hemoglobin A1c 02/03/2019 N2N/CCD Import Hemoglobin A1c 5.6 4.0-5.6 1 STAT CALL RESULTS- [phone] 2 STAT CALL RESULTS- [phone] 3 Because ethnic data is not always readily [...] 15-29 5 Kidney failure <15 (or dialysis) 4 SEE RESULT BELOW Name: BHAVNA SEGURA : [address]: Joan Friend MD Acct: [id number] Unit: [id number] AGE: 79 Location: LAB Re06/24/19 SEX: M Status: REG REF SPEC: [id number] MARCE: 06/24/19-[address]: Joan Friend MD REQ: [id number] RECD: 06/24/19 STATUS: EDGAR EATON DR: Romina Bolden MD _ SOURCE: URINE SPDESC: ORDERED: Urine Culture Procedure Result Reported Site Urine Culture Final 06/26/19- 1615 ML No growth of clinically significant organisms * ML - [facility] . END OF REPORT DEPARTMENT OF PATHOLOGY, [address] [place] [address] Jurgen Mcdonnell M.D. Director [facility] # [id number] 5 Therapeutic target for the treatment of diabetes mellitus patients is <7% HBA1C, and in selective patients <6.0%. Please refer to [place] [employer] diabetic care guidelines for further information. 6 SEE RESULT BELOW Name: BHAVNA SEGURA : [address]: Joan Friend MD Acct: [id number] Unit: [id number] AGE: 78 Location: [facility] Re03/23/19 SEX: M Status: REG REF SPEC: [id number] MARCE: 03/23/19 [facility] [place] DR: Joan Friend MD REQ: [id number] RECD: 03/23/19 STATUS: EDGAR [facility] DR: Romina Bolden MD _ SOURCE: URINE SPDESC: ORDERED: Urine Culture Procedure Result Reported Site Urine Culture Final 03/24/19- 1615 ML No Growth (<1,000 CFU/mL) * ML - [facility] Lab . END OF REPORT DEPARTMENT OF PATHOLOGY, [address] [place] [address] Jurgen Mcdonnell M.D. Director [facility] # [id number] 7 Because ethnic data is not always readily [...] 15-29 5 Kidney failure <15 (or dialysis) Procedures Description No Information Available Medical Devices Description No Information Available Encounters Type Date Location Provider Dx Diagnosis Office Visit 06/11/2019 [facility] Megan Kohli, R56.9 Unspecified 10:22a john Begum M.D. convulsions Hospitalists N17.9 Acute kidney failure, unspecified N40.0 Benign prostatic hyperplasia without lower urinry tract symp I25.10 Athscl heart disease of [place] coronary artery w/o ang pctrs I50.30 Unspecified diastolic (congestive) heart failure I10 Essential (primary) hypertension Z72.0 Tobacco use Office Visit 05/04/2019 Eliazar Garcia 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, 3:30p [facility] [place] Office Visit 04/20/2019 Eliazar Garcia 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, 1:15p [facility] at [facility] [place] Office Visit 04/18/2019 Eliazar Grant, 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, 10:45a Orthopedics at [facility] right hand [place] Office Visit 03/25/2019 [facility] Joan Cruz 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 8:30a MD Ronna chronic kidney disease w stg 1-4/unsp chr kdny N18.4 Chronic kidney disease, stage 4 (severe) E87.5 Hyperkalemia D64.9 Anemia, unspecified E78.5 Hyperlipidemia, unspecified I10 Essential (primary) hypertension Office Visit 03/13/2019 9:33a [facility] Brendan Valladares, E87.5 [facility]kalemia [facility] Hospitalists B95.2 Enterococcus as the cause of diseases classified elsewhere N39.0 Urinary tract infection, site not specified N18.9 Chronic kidney disease, unspecified I25.10 Athscl heart disease of [place] coronary artery w/o ang pctrs I10 Essential (primary) hypertension E78.5 Hyperlipidemia, unspecified J44.9 Chronic obstructive pulmonary disease, unspecified D64.9 Anemia, unspecified Z86.73 Prsnl hx of TIA (TIA), and cereb infrc w/o resid deficits Office Visit 03/12/2019 9:33a [facility] E87.5 Hyperkalemia Assoc,john Baker MD Hospitalists N17.9 Acute kidney failure, unspecified N18.9 Chronic kidney disease, unspecified E87.2 Acidosis E83.42 Hypomagnesemia N40.1 Benign prostatic hyperplasia with lower urinary tract symp N39.0 Urinary tract infection, site not specified Office Visit 03/11/2019 9:28a [facility] E87.5 Hyperkalemia Assoc,john Baker MD Hospitalists N17.9 Acute kidney failure, unspecified N18.9 Chronic kidney disease, unspecified E87.2 Acidosis E83.42 Hypomagnesemia N40.1 Benign prostatic hyperplasia with lower urinary tract symp N39.0 Urinary tract infection, site not specified Office Visit 03/10/2019 9:28a [facility] E87.5 Hyperkalemia Assoc,john Baker MD Hospitalists N17.9 Acute kidney failure, unspecified N18.9 Chronic kidney disease, unspecified E87.2 Acidosis E83.42 Hypomagnesemia N40.0 Benign prostatic hyperplasia without lower urinry tract symp Office Visit 03/09/2019 9:27a [facility] E87.5 Hyperkalemia Assoc,john Baker MD Hospitalists N17.9 Acute kidney failure, unspecified N18.9 Chronic kidney disease, unspecified E87.2 Acidosis E83.42 Hypomagnesemia Office Visit 03/08/2019 9:23a [facility] Florencia Geiger, E87.5 Hyperkalemia Assoc,john Mcmahan Hospitalists N18.4 Chronic kidney disease, stage 4 (severe) R19.7 Diarrhea, unspecified R82.90 Unspecified abnormal findings in urine I10 Essential (primary) hypertension I25.10 Athscl heart disease of [place] coronary artery w/o ang pctrs N40.1 Benign prostatic hyperplasia with lower urinary tract symp Office Visit 03/07/2019 10:30a [facility] Joan Cruz N18.4 Chronic kidney MD Ronan disease, stage 4 (severe) 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 chronic kidney disease w stg 1-4/unsp chr kdny E87.5 Hyperkalemia E11.9 Type 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 complications J44.9 Chronic obstructive pulmonary disease, unspecified I50.30 Unspecified diastolic (congestive) heart failure I10 Essential (primary) hypertension Office Visit 02/27/2019 9:16a [facility] Brendan N39.0 Urinary tract Assoc,JAQUAN Hazel infection, site Hospitalists not specified E87.5 Hyperkalemia D64.9 Anemia, unspecified N17.9 Acute kidney failure, unspecified N18.9 Chronic kidney disease, unspecified N40.1 Benign prostatic hyperplasia with lower urinary tract symp I10 Essential (primary) hypertension E78.5 Hyperlipidemia, unspecified E11.9 Type 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 complications J44.9 Chronic obstructive pulmonary disease, unspecified Office Visit 02/26/2019 9:16a [facility] N39.0 Urinary tract Assoc,JAQUAN Hazel infection, site Hospitalists not specified N17.9 Acute kidney failure, unspecified N18.9 Chronic kidney disease, unspecified D64.9 Anemia, unspecified 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 I50.30 Unspecified diastolic (congestive) heart failure I10 Essential (primary) hypertension E87.5 Hyperkalemia E11.9 Type 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 complications Office Visit 02/25/2019 9:15a [facility] Brendan N39.0 Urinary tract Assoc,JAQUAN Hazel infection, site Hospitalists not specified N17.9 Acute kidney failure, unspecified N18.9 Chronic kidney disease, unspecified D64.9 Anemia, unspecified I25.10 Athscl heart disease of [place] coronary artery w/o ang pctrs J44.9 Chronic obstructive pulmonary disease, unspecified I50.30 Unspecified diastolic (congestive) heart failure I10 Essential (primary) hypertension E87.5 Hyperkalemia E11.9 Type 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 complications [facility],john Tello M.D. 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 Hospitalists N17.9 Acute kidney failure, unspecified N18.3 Chronic kidney disease, stage 3 (moderate) I10 Essential (primary) hypertension E11.9 Type 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 complications E78.5 Hyperlipidemia, unspecified N40.0 Benign prostatic hyperplasia without lower urinry tract symp Office Visit 02/04/2019 9:28a [facility], E87.5 Hyperkalemia Assocjohn M.D. Hospitalists N17.9 Acute kidney failure, unspecified N18.3 Chronic kidney disease, stage 3 (moderate) I10 Essential (primary) hypertension E11.9 Type 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 complications E78.5 Hyperlipidemia, unspecified N40.0 Benign prostatic hyperplasia without lower urinry tract symp Office Visit 02/03/2019 9:27a [facility] Megan Kohli, N18.3 Chronic kidney Assjohn burnett M.D. disease, stage 3 Hospitalists (moderate) E87.5 Hyperkalemia R19.7 Diarrhea, unspecified Z86.79 Personal history of other diseases of the circulatory system Z86.39 Personal history of endo, nutritional and metabolic disease Z87.09 Personal history of other diseases of the respiratory system Assessments Date Code Description Provider 06/27/2019 N17.9 Acute kidney failure, unspecified Joan Friend MD 06/27/2019 N18.5 Chronic kidney disease, stage 5 Joan Friend MD 06/27/2019 E87.5 Hyperkalemia Joan Friend MD 06/27/2019 E83.51 Hypocalcemia Joan Friend MD 06/27/2019 D63.1 Anemia in chronic kidney disease Joan Friend MD 06/11/2019 R56.9 Unspecified convulsions Megan Kohli M.D. 06/11/2019 N17.9 Acute kidney failure, unspecified Megan Kohli M.D. 06/11/2019 N40.0 Benign prostatic hyperplasia without lower Megan Kohli M.D. 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 failure 06/11/2019 I10 Essential (primary) hypertension Megan Kohli M.D. 06/11/2019 Z72.0 Tobacco use Megan Kohli M.D. 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 03/08/2019 I25.10 Atherosclerotic heart disease of [place] Florencia Geiger M.D. coronary artery without angina [...] 02/27/2019 N17.9 Acute kidney failure, unspecified Brendan [place], [place] 02/27/2019 N18.9 Chronic kidney disease, unspecified Brendan Blaine, [place] 02/27/2019 N40.1 Benign prostatic hyperplasia with lower Brendan Valladares, [place] urinary tract symptoms 02/27/2019 I10 Essential (primary) hypertension Brendan Valladares, [place] 02/27/2019 E78.5 Hyperlipidemia, unspecified Brendan Manciniber, [place] 02/27/2019 E11.9 Type 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 Brendan Valladares, [place] complications 02/27/2019 J44.9 Chronic obstructive pulmonary disease, Brendan Opheim, [place] unspecified 02/26/2019 N39.0 Urinary tract infection, site not specified Brendan Manciniber , [place] 02/26/2019 N17.9 Acute kidney failure, unspecified Brendan Op[place], [place] 02/26/2019 N18.9 Chronic kidney disease, unspecified Brendan [place], [place] 02/26/2019 D64.9 Anemia, unspecified Berndan Blaine, [place] 02/26/2019 I25.10 Atherosclerotic heart disease of [place] Brendan Valladares PA coronary artery without angina [...] 02/25/2019 N18.9 Chronic kidney disease, unspecified Brendan Opheim, [place] 02/25/2019 D64.9 Anemia, unspecified Brendan Blaine, [place] 02/25/2019 I25.10 Atherosclerotic heart disease of [place] Brendan Valladares PA coronary artery without angina pectoris 02/25/2019 J44.9 Chronic obstructive pulmonary disease, Brendan Valladares, [place] unspecified 02/25/2019 I50.30 Unspecified diastolic (congestive) [...] M.D. 02/24/2019 I25.10 Atherosclerotic heart disease of [place] Silverio Tello M.D. coronary artery without angina [...] Hyperkalemia Megan Kohli M.D. 02/03/2019 R19.7 Diarrhea, viniciusified Megan Kohli M.D. 02/03/2019 Z86.79 Personal history of other diseases of the Megan Kohli M.D. circulatory system 02/03/2019 Z86.39 Personal history of other endocrine, Megan Kohli M.D. nutritional and metabolic disease 02/03/2019 Z87.09 Personal history of other diseases of the Megan Kohli M.D. respiratory system Plan of Treatment Future Appointment(s):07/05/2019 2:00 pm - Joan Friend MD at [facility]/10/2020 3:20 pm - Ambika Bell M.D. at [facility] - Joan Friend MDN17.9 Acute kidney failure, [id number] Chronic kidney disease, stage 5New Medication:Calcium Acetate (Phos Binder) 667 mg - 1 capsule by mouth three times daily after mealsFollow up:1 week f/u with labsE87.5 JyznkiaovcvsZ00.51 VkiuabloyssvR66.1 Anemia in chronic kidney disease Functional Status Description No Information Available Mental Status Description No Information Available Referrals Description No Information Available
--- OUTSIDE RECORDS SUMMARY | 2019-06-30 13:55 | XMS REPORT | Summary of Care ---
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 The uucp-xn-cpnj visit must be related to the reason for which Home Health is needed. See CMS Manual System - Medicare Benefit Policy under Additional Order Details. (Routine) Status Reason Specialty Diagnoses / Procedures Referred By Contact Referred To Contact Patricia Morejon MD [address] [address] Scheduling Instructions Reason for Consult: Patient is admitted with renal failure. Has been dropping Hb. FOBT is positive. Please evaluate and give your recommendations. Patient Background: Kamar Segura is a 79-y.o. male (Routine) Status Reason Specialty Diagnoses / Procedures Referred By Contact Referred To Contact Raymundo Estrada MD [address] [address] Scheduling Instructions Reason for Consult: Patient with EDILSON and hyperkalemia. Please evaluate the patient. Patient Background: Kamar Segura is a 79-y.o. male Active Problems: * No active hospital problems. * No components found for: CREATININE CLEARANCE Reason for Visit Auth/Cert Status Reason Specialty Diagnoses / Procedures Referred By Contact Referred To Contact Encounter Details Date Type Department Care Team Description 06/11/2019 - Hospital Encounter [facility] 6 Teddy May MD [address] [id number] Inpatient 06/22/2019 1 Luna Carter MD [address] [id number] [address] [place] [id number] Carlos Alberto Colon MD [address] [id number] [phone] Patricia Morejon MD [address] [id number] Allergies Active Allergy Reactions Severity Noted Date Comments Diego Inhibitors Other 12/09/2017 Elevated potassium CKD Keflex GI Reaction 07/24/2011 Lisinopril Other 02/14/2019 Very high potassium Losartan Other 12/09/2017 Elevated potassium, chronic kidney disease Nsaids Other 04/13/2018 CKD documented as of this encounter (statuses as of 06/23/2019) Medications Medication Sig Dispensed Refills Start End Date Status Date Aspirin 81 MG Oral Tab Take 1 Tab by 0 Active EC mouth DAILY. Blood Glucose by Does not 1 Kit 0 Active Monitoring Suppl (BLOOD apply route. 5 GLUCOSE METER) Does not 1. apply Kit Brand:Freestyl e Insulinx 2. Dx:E11.9 3. Insulin dependent 4. Test Blood Glucose 4 time(s) A DAY ----before meals & at bedtime albuterol HFA Take 2 Puffs 1 Inhaler 1 Active (VENTOLIN) 108 (90 by inhalation 7 Base) MCG/ACT EVERY SIX Inhalation Aero HOURS SolnIndications: NEEDED Chronic obstructive (wheezing). pulmonary disease, unspecified COPD type (HCC) FREESTYLE INSULINX TEST USE 100 Each 11 Active In Vitro Strip DIRECTED THREE 8 TIMES A DAY Brinzolamide-Brimonidin Place 1 Drop 0 Active e (SIMBRINZA) 1-0.2 % to the 8 Ophthalmic Suspension external eye THREE TIMES DAILY. Left eye bimatoprost (LUMIGAN) Place 1 Drop 0 Active 0.03 % Ophthalmic in both eyes 8 Solution EVERY BEDTIME. 1 drop both eyes tiotropium (SPIRIVA Take 18 mcg by 0 Active HANDIHALER) 18 MCG inhalation Inhalation Cap DAILY. Cyanocobalamin (VITAMIN Place 1 Tab 30 Tab 0 Active B-12) 1000 MCG under tongue 8 Sublingual SL DAILY. TabIndications: Malaise and fatigue loratadine Take 1 Tab by 30 Tab 0 Active (CLARITIN,ALAVERT) 10 mouth EVERY 8 MG Oral TabIndications: OTHER DAY. COPD with acute bronchitis (HCC) Tiotropium Take 2 INHL by 1 Inhaler 5 Active Randolph-Olodaterol inhalation 9 (STIOLTO RESPIMAT) DAILY. 2.5-2.5 MCG/ACT Inhalation Aero Soln atorvastatin (LIPITOR) TAKE ONE 30 Tab 5 Active 80 MG Oral TABLET BY 9 TabIndications: Mixed MOUTH ONCE hyperlipidemia DAILY finasteride (PROSCAR) 5 TAKE ONE 90 Tab 1 Active MG Oral TabIndications: TABLET BY 9 Benign nodular MOUTH ONCE prostatic hyperplasia DAILY without lower urinary tract symptoms amLodipine (NORVASC) 5 Take 1 Tab by 90 Tab 1 Active MG Oral TabIndications: mouth DAILY. 9 Essential hypertension, New lower dose benign patiromer (VELTASSA) Take 8.4 g by 0 Active 8.4 g Oral Pack mouth DAILY NEEDED (hyperkalemia) . Polyethylene Glycol Take 17 g by 0 Active 3350 (MIRALAX PO) mouth DAILY NEEDED (constipation) . Magnesium 250 MG Oral Take 1 Tab by 90 Tab 3 Active TabIndications: Low mouth DAILY. 9 magnesium level Darifenacin TAKE ONE 30 Tab 3 Active Hydrobromide 15 MG Oral TABLET BY 9 TABLET SR 24 HR MOUTH ONCE DAILY sodium bicarbonate 650 Take 1,300 mg 0 Active MG Oral Tab by mouth THREE TIMES DAILY. Tamsulosin HCl (FLOMAX) Take 0.4 mg by 0 Active 0.4 MG Oral Cap mouth DAILY. fluticasone (FLONASE [place] 2 Sprays 1 Bottle 3 Active ALLERGY RELIEF) 50 in nose DAILY. 9 MCG/ACT Nasal SuspensionIndications: Allergic rhinitis, unspecified seasonality, unspecified trigger Mirabegron ER 50 MG Take 50 mg by 30 Tab 3 Active Oral TABLET SR 24 HR mouth DAILY. 9 Tizanidine 2 MG Oral Take 2 mg by 30 Tab 1 Active TabIndications: Muscle mouth EVERY 9 spasm BEDTIME NEEDED (muscle cramps). ergocalciferol Take 1 Cap by 5 Cap 0 Active (DRISDOL, CALCIFEROL, mouth EVERY 7 0 VITAMIN D) 1.25 MG DAYS. (86[address] UT) Oral Cap furosemide (LASIX) 40 Take 3 Tabs by 30 Tab 0 Active MG Oral Tab mouth TWICE 0 DAILY. guaifenesin Take 1 Tab by 84 Tab 0 Active (ORGANIDIN-NR) 200 MG mouth FOUR 0 Oral Tab TIMES DAILY. hydrALAZINE Take 1 Tab by 120 Tab 0 Active (APRESOLINE) 25 MG Oral mouth THREE 0 Tab TIMES DAILY. isosorbide MONOnitrate Take 1 Tab by 30 Tab 0 Active (IMDUR) 30 MG Oral mouth DAILY. 0 TABLET SR [address] 1 Patch 30 Patch 0 Active patch-daily (NICODERM) onto skin 0 7 MG/24HR Transdermal DAILY. PATCH 24 HR Doxercalciferol Take by 0 06/22/19 Discontinued (HECTOROL) 0.5 MCG Oral mouth. [address] to the 0 06/22/19 Discontinued Alcohol-Povidone external eye. 20 (REFRESH OP) hydrochlorothiazide Take 1 Cap by 30 Cap 3 06/22/19 Discontinued (HCTZ, ORETIC) 12.5 MG mouth DAILY. 9 20 Oral CapIndications: Essential hypertension, benign Colchicine 0.6 MG Oral Take 0.6 mg by 30 Cap 0 06/22/19 Discontinued CapIndications: Gout of mouth DAILY. 9 20 right hand, unspecified cause, unspecified chronicity documented as of this encounter (statuses as of 06/23/2019) Active Problems Problem Noted Date EDILSON (acute kidney injury) 06/11/2019 Seizure 06/11/2019 Type 2 diabetes mellitus with stage 4 chronic kidney disease, without 2018 long-term current use of insulin Trochanteric bursitis of both hips 09/17/2017 Hip pain, bilateral 08/07/2017 Coronary artery disease involving kaibab coronary artery of kaibab heart 01/15 without angina pectoris Type 2 diabetes mellitus with stage 4 chronic kidney disease 01/16/2016 Gross hematuria 08/03/2015 Elevated prostate specific antigen (PSA) 08/03/2015 CAD (coronary artery disease) 11/07/2014 Overview: CABG September 2014 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 Catrachito Casas at [facility] in [place] S/P AVR (aortic valve replacement) HTN (hypertension) Gout Sleep apnea Overview: never followed up on sleep study, agrees to set this up today 01/16/16 documented as of this encounter (statuses as of 06/23/2019) Resolved Problems Problem Noted Date Resolved Date Septicemia due to Enterobacter species 11/13/2017 07/01/2018 Type 2 diabetes mellitus with stage 4 chronic kidney 09/11/2016 03/12/2018 disease, with long-term current use of insulin Hyperkalemia 10/31/2011 07/31/2017 Overview: Due to renal disease Potassium Level 5.8-6 2011 Diabetes mellitus 03/12/2018 documented as of this encounter (statuses as of 06/23/2019) Immunizations Name Administration Dates Next Due Influenza (IM) Preservative Free 06/06/2013, 04/12/2012 Influenza Vaccine 65 Yrs + 03/28/2019 Influenza Vaccine High Dose 05/04/2018, 03/24/2017, 04/07/2016, 03/06/2014 PNEUMOCOCCAL POLYSACCHARIDE VACCINE 03/06/2014 Pneumococcal Conjugate(13 Valent) 05/19/2017 documented as of this encounter Social History Tobacco Use Types Packs/Day Years Used Date Current Some Day Smoker Cigars 2 45 Quit: 06/22/2017 Smokeless Tobacco: Never Used Tobacco Cessation: Ready to Quit: Yes Alcohol Use Drinks/Week oz/Week Comments No Social Isolation Answer Date Recorded In a typical week, how many times do you Once a week 06/13/2019 talk on the phone with family, friends, or neighbors? How often do you get together with friends Once a week 06/13/2019 or relatives? How often do you attend mandaeism or caodaism More than 4 times per year 2018 [...] Sign Reading Time Taken Comments Blood Pressure 127/60 06/22/2019 3:11 PM EST Pulse 64 06/22/2019 3:11 PM EST Temperature 37.3 06/22/2019 3:11 PM EST C (99.2 F) Respiratory Rate 18 06/22/2019 3:11 PM EST Oxygen Saturation 95% 06/22/2019 3:11 PM EST Inhaled Oxygen Concentration - - Weight 79.9 kg (176 lb 3.2 oz) 06/20/2019 5:45 AM EST Height 170.2 cm (5' 7") 06/14/2019 12:30 PM EST Body Mass Index 27.6 06/14/2019 12:30 PM EST documented in this encounter Discharge Instructions Sivan Weber, RN - 06/22/2019Patient Education Provider's Instructions Reason for Admission or Diagnosis:EDILSON (acute kidney injury) ([facility]) Goals:Patient to maintain functional ability. Activity/Restrictions: activity as tolerated Skin/Wound Care: Keep wound clean and dry Discharge Diet: Renal Diet Special Instructions: Follow up with nephrology within 1 week of discharge for renal failure. Followup with gastroenterology within biopsy report of polyps. Follow up with PCP within one week of discharge. Discharge Provider: Patricia Morejon MD Attending: Patricia Morejon MD Time: 15:09 Nurse's Instructions Problems to report to your Physician: Excessive pain or discomfort Fever > 100.5 degrees Difficulty breathing Increase or smell in wound drainage Skin/Wound Care: Skin intact on discharge:intact Medical Equipment/Supplies to help you at home:n/a Help arranged for you Home Health/Receiving Agency: n/a Acute Kidney Failure The Basics Written by the doctors and editors at [facility] What is acute kidney injury?Acute kidney injury is when the kidneys suddenly stop working. Normally, the kidneys filter the blood and remove waste and excess salt and water (figure 1). The word "acute" means sudden. Another term for acute kidney injury is "acute kidney failure." What causes acute kidney injury?Acute kidney injury can have different causes. It can happen when: Less blood than usual flows to the kidneys. Different things can cause this to happen. For example, in a condition called heart failure, the heart might not be able to pump enough blood to the kidneys. The kidneys get damaged. Some causes of kidney damage are infections, cancer, certain medicines, and some autoimmune conditions. In an autoimmune condition, a person's infection-fighting system attacks his or her body. The path the urine takes to leave the body is blocked. Some causes of blockages are prostate problems (in men) and cancer. The blockage of urine causes pressure on the kidney, which leads to damage. What are the symptoms of acute kidney injury?Some people do not have any symptoms at first. People who are in the hospital might learn that they have acute kidney injury after they have blood tests for another reason. When people do have symptoms, the symptoms can include: Urinating less, or not urinating at all Blood in the urine, or urine that is red or brown Swelling, especially in the legs or feet Vomiting, or not feeling hungry Feeling weak, or getting tired easily Acting confused, or not acting like themselves Seizures Seizures are waves of abnormal electrical activity in the brain. They can make people pass out, or move or behave strangely. Should I call my doctor or nurse?Call your doctor or nurse if you have any of the above symptoms. If you are already in the hospital, let your doctor or nurse know if you have any of these symptoms. Is there a test for acute kidney injury?Yes. Your doctor will ask about your symptoms and do an exam. To check how well your kidneys are working, he or she will do blood and urine tests. Most people will have an imaging test called an ultrasound to look for blockages in the urinary system. Imaging tests can create pictures of the inside of the body. Your doctor might do other tests to look for other causes of your acute kidney injury. These can include X-rays or other imaging tests of your belly or kidneys. If these tests don't show what's causing your acute kidney injury, your doctor might do a test called a biopsy. For a biopsy, the doctor will put a needle into your back and into your kidney. He or shewill remove a tiny sample of tissue. Then another doctor will look at the sample under a microscope. How is acute kidney injury treated?Treatment depends on what's causing your acute kidney injury and how severe the kidney injury is. If your acute kidney injury is caused by a medicine, your doctor will have you stop taking that medicine. Plus, to help your kidneys heal, he or she might also give you medicines called steroids. (These steroids are different from the ones athletes take to build muscle.) If your acute kidney injury has another cause that can be treated, your doctor will treat it. For example, doctors can treat infections with antibiotics. Most of the time, a person's kidneys will heal and work normally again. But it can take weeks to months for the kidneys to heal completely. Until your kidneys can work normally again, you might need treatments to help make sure your body has the right amount of fluid, salt, and nutrients. These treatments can include: Medicines Changes in your diet Renal replacement therapy This treatment takes over the job of your kidneys until they can heal. It involves either: ? Hemodialysis Hemodialysis is a procedure in which a machine takes over the job of the kidneys. The machine pumps blood out of the body, filters it, and returns it to the body (figure 2). People have hemodialysis at least three times a week. ? Peritoneal dialysis Peritoneal dialysis is a procedure that people do at home every day. Itinvolves piping a special fluid into the belly. This fluid collects waste and excess salt and water from the blood. Then the used fluid drains out of the belly (figure 3). All topics are updated as new evidence becomes available and our peer review process is complete. This topic retrieved from [employer] on: Apr 26, 2019. Topic 14237 Version 9.0 Release: 27.4.5 - C27.318 [employer] and/or its affiliates.All rights reserved. figure 1: Anatomy of the urinary tract Urine is made by the kidneys. It passes from the kidneys into the bladder through two tubes called the ureters. Then it leaves the bladder through another tube called the urethra. Graphic 07185 Version 7.0 figure 2: Hemodialysis This drawing shows a person getting hemodialysis. Two needles are put into an "access" in the person's arm. Blood flows from the body to the hemodialysis machine, where it is filtered. Then the blood is returned to the body. The whole process takes about 3 to 5 hours and must be repeated 3 to 7 times a week. Graphic 69298 Version 3.0 figure 3: Peritoneal dialysis This drawing shows a person having peritoneal dialysis. The dialysis fluid ( fresh dialysis solution)flows into the person's belly. It stays there for a certain amount of time, and then it drains out into the drain bag. The " transfer set" is the tubing that connects a thin tube (catheter) in the person' s belly to the dialysis equipment. Graphic 36219 Version 6.0 Consumer Information Use and Disclaimer This information [...] or not to accept your health care provider's advice, instructions or recommendations. Only your health care provider has the knowledge and training to provide advice that is right for you.The use of UpToDate content is governed by the [employer] Terms of Use. 2019 [employer]. All rights reserved. Copyright 2019[employer]. and/or its affiliates.All rights reserved. Patient Education Heart Healthy Diet General With a heart healthy food plan, you will learn to make better food choices. This diet may help you lower your blood cholesterol level, manage your blood pressure, and lower your risk for heart problems. Smaller portions may also be helpful. Sodium is a type of mineral found in many foods. It helps keep the balance of fluids in your body. Too much sodium can raise your blood pressure. It can also make you take on extra water. This is called edema. Pay careful attention to how much salt or sodium is in your food. You may need to avoid saltor eat foods with less sodium. Cholesterol is a fat-like, waxy substance in your blood. It is normal to have some cholesterol in your blood because your body makes it. You also get extra cholesterol from all animal products. These are foods like meats, eggs, and dairy products. Too much cholesterol can block or damage your blood vessels. This can lead to a heart attack or stroke. Fats in your food have calories which give energy. Not all fats are bad. Some fats are healthy, likethe fat found in fish, nuts, and olive oil. These are called unsaturated fats. They help manage bodyfunctions and lower cholesterol levels. Learn about the best fats to use in your diet and where to use them. Eating too much fat may make you more likely to weigh more than is healthy. This raises yourrisk of many heart problems. Fiber is found in plants. Meat and dairy products do not have fiber in them. Fiber can help you lower your unhealthy cholesterol level. You may need more water as you eat more fiber so you do not get hard stools. What lifestyle changes are needed? Eat a healthy diet and workout often. Try to use as many calories as you take in each day. What changes to diet are needed? Eat oily fish at least 2 times a week. These are fish like tuna, salmon, and mackerel. Limit sodium to no more than 2,300 mg of sodium per day. This is about 1 teaspoon (5 grams) of table salt. Use little or no salt when making food. Try other spices or seasoning instead. Limit how much cholesterol you eat to less than 300 mg per day. You can do this by having lean meats. Also eat lots of fruits, vegetables, and fat-free and low-fat dairy products. Limit how much trans fats you eat. Trans fats are found in many processed foods like stick margarine, shortening, and some fried foods. Also, lower how much hydrogenated fats you eat. They are used to make pastries, biscuits, cookies, crackers, chips, and many snack foods. Have no more than 1 drink per day of beer, wine, and mixed drinks (alcohol) . Who should use this diet? A heart healthy diet is good for everyone. What foods are good to eat? Grains: Try to eat 6 to 8 servings of whole grain, high fiber foods each day. These are whole grain bread, cereals, brown rice, or pasta. Fruits and vegetables: Eat 4 to 5 servings each day. Try to pick many kinds and colors. Try to eat more that are fresh or frozen. Look for low sodium or salt-free if you choose canned. Rinse canned items before cooking or eating. Dried peas, beans, and lentils are also good. Dairy: Choose low fat (1%) or fat-free milk. Eat nonfat or low-fat products. Protein: Try to eat more low fat or lean meats like chicken and turkey. Eat less red meat and eat more fish, eggs, egg whites, and beans instead. Fats: Use good fats found in fish, nuts, and avocados. Try using olive oil , canola oil, and low-sodium and low-fat salad dressing and mayonnaise. Use corn , safflower, sunflower, and soybean oils. Condiments: Use low-sodium or salt-free broths, soups, soy sauce, and condiments. Pepper, herbs, spices, vinegar, lemon or twenty-nine palms juices are great for seasoning. Sugar, cocoa powder, honey, syrup, and jams may be eaten in small amounts. Sweets: Low-fat, trans fat-free cookies, cakes, and pies; ira crackers; animal crackers; low-fat fig bars; and sisi snaps. What foods should be limited or avoided? Grains: Salted breads, rolls, crackers, quick breads, self-rising flours, biscuit mixes, regular bread crumbs, instant hot cereals, commercially-prepared rice, pasta, stuffing mixes Fruits and vegetables: Commercially-prepared potatoes and vegetable mixes, regular canned vegetables and juices, vegetables frozen with sauce or pickled vegetables, processed fruits with salt or sodium Dairy: Whole milk, malted milk, chocolate milk, buttermilk Protein: Smoked, cured, salted, or canned meat, fish, or poultry such as thornton and sausages Fats: Cut back on solid fats like butter, lard, and margarine. Condiments and snacks: Salted and canned peas, beans, and olives; salted snack foods; fried foods; soda, juices, or other sweetened drinks; commercially- softened water. Miso, salsa, ketchup, barbeque sauce, Worcestershire sauce, soy sauce, and teriyaki sauce are also high in salt. Sweets: High-fat baked goods such as muffins, donuts, pastries, commercial baked goods Helpful tips When you go to a grocery store, have a list or a meal plan. Do not shop when you are hungry to avoid cravings for foods. You need to know about the sodium and fat content of the food you eat. Read food labels with care. They will show you how much of each is in a serving. This amount is given as a percentage of the total amount you need each day. Reading the labels will help you make healthy food choices. Avoid fast foods. Watch your portions when eating out. Split an order or bring home half for another meal. Talk to a dietitian for help. Where can I learn more? [employer] https://familydoctor.org/roct-bzi-rabolpzs-gul-f-gqournp-heart/ [place] [employer] http://www.heart.org/HEARTORG/HealthyLiving/HealthyEating/Nutrition/Diet-and- Lifestyle-Recommendations_UCM_305855_Article.jsp#.Wxf_[email or web address] Last Reviewed Date 2017-12-30 Consumer Information Use and Disclaimer This information [...] advice that isright for you. Copyright Copyright 2019 [employer] and its affiliates and/or licensors. All rights reserved. documented in this encounter Progress Notes Mer Whitman MD - 06/22/2019 10:33 AM EST IP Gastroenterology Progress Note [address] [place] [address] ADMISSION DATE: 06/11/19 LOCATION: MAIN ATTENDING: PATRICIA MOREJON MD ,MD Interval Hx No acute events overnight, patient had colonoscopy completed yesterday, resting in bed comfortably today having breakfast no complaints of nausea, vomiting, diarrhea, fevers. Current Facility-Administered Medications: albuterol-ipratropium (DUO-NEB) nebulizer unit dose (RT ADMIN) 0.5-2.5 ( 3) MG/3ML, 3 mg, Inhalation-SVN, X1, Sanjay Wood MD, Stopped at 06/21/19 1420 amLodipine (NORVASC) tablet 10 mg, 10 mg, Oral, DAILY, Raymundo Estrada MD, 10 mg at 06/22/19 0931 aspirin (ECOTRIN) enteric coated tablet 81 mg, 81 mg, Oral, DAILY, Raymundo Estrada MD, 81 mg at06/22/19 09 atorvastatin (LIPITOR) tablet 80 mg, 80 mg, Oral, QHS, Raymundo Estrada MD, 80 mg at 06/21/192058 budesonide (RHINOCORT AQ) nasal spray 1 [place], 1 [place], Nasal, DAILY, Constantino Durham MD, 1 [place] at 06/20/19 09 ergocalciferol (DRISDOL, CALCIFEROL, VITAMIN D) capsule 50,000 Units, 50 ,000 Units, Oral, Q7D, Lizzie Golden MD, 50,000 Units at 06/19/19 1135 finasteride (PROSCAR) tablet 5 mg, 5 mg, Oral, DAILY, Raymundo Estrada MD, 5 mg at 06/22/19 0932 furosemide (LASIX) tablet 120 mg, 120 mg, Oral, BID DIURETIC, Patricia Morejon MD, 120 mg at 06/22/19 0931 guaifenesin (ORGANIDIN-NR) tablet 200 mg, 200 mg, Oral, QID, Justin Black MD, 200 mg at 06/22/19 0931 hydralazine (APRESOLINE) injection 10 mg, 10 mg, Intravenous Push, Q6H PRN, Constantino Durham MD, 10 mg at 06/14/19 0430 hydrALAZINE (APRESOLINE) tablet 25 mg, 25 mg, Oral, TID, Carlos Alberto Colon MD, 25 mg at06/22/19 0931 isosorbide MONOnitrate (IMDUR) 24 hour tablet 30 mg, 30 mg, Oral, DAILY , Gomez Chris MD, 30 mg at 06/22/19 0931 LISPRO insulin (RAPID-Acting) RESISTANT Correction Scale Inj, , Subcutaneous, AC/HS, Modesto Massey MD, Stopped at 06/22/19 0800 LISPRO insulin (RAPID-Acting) USUAL Correction Scale Inj, , Subcutaneous , AC/HS, Angel Morejon MD, Stopped at 06/20/19 0700 nicotine transdermal patch-daily (NICODERM) topical 7 mg/24 hr 1 Patch, 7 mg, Transdermal, DAILY, Justin Black MD, 1 Patch at 06/22/19 0930 oxymetazoline (AFRIN) nasal spray 0.05 %, 1 [place], Nasal, Q12H PRN, Thania Drummond MD, 1 [place] at 06/22/19 0931 pantoprazole (PROTONIX) injection 40 mg, 40 mg, Intravenous Push, BID, Patricia Morejon MD, 40mg at 06/22/19 0945 polyethylene glycol (MIRALAX) oral pack 17 g, 17 g, Oral, X1, Mer Whitman MD polyethylene glycol (MIRALAX) oral pack 64.005 g, 64.005 g, Oral, DAILY , Myra Steen MD, 34 g at 06/22/19 0929 saline (OCEAN) nasal spray 0.65 %, 1 [place], Nasal, Q2H PRN, Patricia Morejon MD sodium bicarbonate tablet 650 mg, 650 mg, Oral, TID, Patricia Morejon MD, 650 mg at 06/22/19 0931 Tamsulosin HCl (FLOMAX) capsule 0.4 mg, 0.4 mg, Oral, DAILY, Raymundo Estrada MD, 0.4 mg at 06/22/19 0931 BP (!) 147/67 | Pulse 69 | Temp 99 F (37.2 C) (Temporal) | Resp 20 | Ht 5' 7" (1.702 m)| Wt 176 lb 3.2 oz (79.9 kg) | SpO2 90% | BMI 27.60 kg/m Physical Exam: General appearance: aox3, no acute distress, appears stated age Eyes: conjunctivae and sclerae appear normal Throat: lips, mucosa, and tongue normal. Lungs: effort appears normal, no stridor noted Abdomen: soft, non-tender to palpation, no guarding or rebound tenderness; +BS; no masses appreciated Skin: no rashes appreciated, no jaundice. Neurologic: CNII-XII grossly intact, no acute focal deficits noted, no asterixis. Extremities: no peripheral edema, no muscle wasting appreciated. Laboratory: Recent Labs 06/20/19 0504 06/21/19 0540 06/22/19 0525 NA 138 139 137 K 3.5 3.7 3.5 CL 102 99 101 CO2 26 27 27 BUN 113* 108* 100* CREATININE 6.4* 6.3* 6.1* CALCIUM 7.1* 7.4* 6.8* ALT 55 61 56 AST 27 35 50 GLUCOSE 136* 93 121* Recent Labs 06/20/19 0504 06/21/19 0540 06/22/19 0525 WBC 16.32* 12.15* 8.86 HGB 8.2* 9.4* 9.6* HCT 24.8* 30.5* 29.6* No results for input(s): INR in the last 72 hours. A/P: 79M COPD, CVA, HTN, gout, bph, bioprosthetic AVR presented to [facility] on 06/11 for acute renal failure, GI consulted for decreasing normocytic anemia. Patient had colonoscopy completed June [id number] showed 1 nonbleeding AVM at the cecum treated with APC and 2 polyps which were removed and sent for pathology. -Patient has been stable since procedure, hemoglobin is stable, no abdominal pain or complaints -We will need repeat colonoscopy in 5 years for surveillance or earlier if any bleeding reoccurs Don't hesitate to call with any questions or concerns. Mer Whitman MD Gastroenterology & Hepatology Fellow Associated attestation - Primitivo Agrawal MD - 06/22/2019 10:[address] [facility] Supervising MD Documentation Date of Service: 06/22/2019 B# [id number] I saw and evaluated the patient. Discussed with resident and agree with the resident's findings andplan as documented in the resident's note. Primitivo Agrawal MD Supervising Patricia Hernandez MD - 06/21/2019 3:54 PM EST [facility] [place]. [id number] Hospitalist Progress Note Date of Service: 06/21/2019 Patient: Kamar Segura B #: [id number] Attending: PATRICIA MOREJON MD ,MD Subjective: No new complains were told today. S/P Endoscopy and colonoscopy Physical: Objective: Blood pressure 131/60, pulse 65, temperature 97.3 F (36.3 C) , temperature source Temporal, resp. rate 20, height 5' 7" (1.702 m), weight 176 lb 3.2 oz (79.9 kg), SpO2 100 %. General: alert, no distress Lungs: clear to auscultation Heart: S1 and S2 are regular rate and rhythm Abd: s1, s2, regular Ext: 2+ leg edema Neuro: Mental status:awake, alert and oriented Data: Lab Results Component Value Date WBC 12.15 (H) 06/21/2019 HGB 9.4 (L) 06/21/2019 HCT 30.5 (L) 06/21/2019 PLAT 220 06/21/2019 Lab Results Component Value Date NA 139 06/21/2019 K 3.7 06/21/2019 CL 99 06/21/2019 CO2 27 06/21/2019 GLUCOSE 93 06/21/2019 BUN 108 (H) 06/21/2019 CREATININE 6.3 (H) 06/21/2019 CALCIUM 7.4 (L) 06/21/2019 EGFR 10 06/21/2019 Plan/Impression: Acute kidney injury on CKD stage IV:improving Baseline CKD stage IIIb/IV, baseline creatinine 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 Cr 6.3 today. Suspect due toprolonged prerenal, may have progressed toATN. No hematuria/pyuria/significantproteinuria. CT abdomen ruled out acute obstruction Acid-base: Non-anion gap metabolic acidosis, s/p bicarb drip, sodium bicar PO started Nephrology following, no acute indications for dialysis as of now. Lasix changed to 120 mg BID. Nephrology signed off and asked to follow up as outpatient Seizure: "Initial episode of tonic-clonic seizure lasting for 40 seconds followed by a small postictal episode before admission." EEG normal Neurologyeval apprecaited No further seizures, not started on Keppra as of now. likely metabolic cause Hypertension: continue amlodipine/Imdur/hydralzine. Diarrhea: Resolved. Acute blood loss anemia HB 7.8->6.9->9 Folate/vitamin b21 WNL Ferritin 92, iron sat 31%. S/pIV iron x1 and aranesp. FOBT positive Received PRBC GI consulted: S/P Colonoscopy today and - Two 4 to 6 mm polyps in the transverse colon and in the ascending colon, removed with a cold snare. Resected and retrieved. A single non-bleeding colonic angioectasia. Treated with argon plasma coagulation (APC). Clip was placed. COPDexacerbation Decrease solumedrol to q12 Continue duonebs Incentive spirometry Improving CXR-> Bilateral patchy opacities, interlobular septal prominence, and left pleural effusion, likely acute pulmonary edema as a result of volume overload due to EDILSON on CKD IV, than a pneumonia. S/p IV lasix on 06/15. Pt sob improving , off oxygen and afebrile. Will monitor. 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 Continue Ergocalciferol 82535 unit every week for 12 weeks and then recheck Vit D 25 and PTHas outpatient Phos is improved and now 4.2. Renal diet Uncontrolled DM Worsened by Prednisone which are beng given for COPD IV insulin and ISS coverage given Disposition: DC tomorrow Author: Patricia Morejon MD Mer Xie MD - 06/21/2019 10:03 AM EST IP Gastroenterology Progress Note [address] [address] ADMISSION DATE: 06/11/19 LOCATION: 6 MAIN ATTENDING: PATRICIA MOREJON MD ,MD Interval Hx No acute events overnight, pt reports he finished his prep but RN reports of semiformed stools this AM Current Facility-Administered Medications: amLodipine (NORVASC) tablet 10 mg, 10 mg, Oral, DAILY, Raymundo Estrada MD, 10 mg at 06/21/19 0910 aspirin (ECOTRIN) enteric coated tablet 81 mg, 81 mg, Oral, DAILY, Raymundo Estrada MD, 81 mg at1 0910 atorvastatin (LIPITOR) tablet 80 mg, 80 mg, Oral, QHS, Raymundo Estrada MD, 80 mg at 06/20/19 2210 budesonide (RHINOCORT AQ) nasal spray 1 [place], 1 [place], Nasal, DAILY, Constantino Durham MD, 1 [place] at 06/20/19 0901 ergocalciferol (DRISDOL, CALCIFEROL, VITAMIN D) capsule 50,000 Units, 50 ,000 Units, Oral, Q7D, Lizzie Golden MD, 50,000 Units at 06/19/19 1135 finasteride (PROSCAR) tablet 5 mg, 5 mg, Oral, DAILY, Raymundo Estrada MD, 5 mg at 06/21/19 0910 furosemide (LASIX) tablet 120 mg, 120 mg, Oral, BID DIURETIC, Patricia Morejon MD, 120 mg at 06/21/19 0911 guaifenesin (ORGANIDIN-NR) tablet 200 mg, 200 mg, Oral, QID, Justin Black MD, 200 mg at 06/21/19 09 hydralazine (APRESOLINE) injection 10 mg, 10 mg, Intravenous Push, Q6H PRN, Constantino Durham MD, 10 mg at 06/14/19 0430 hydrALAZINE (APRESOLINE) tablet 25 mg, 25 mg, Oral, TID, Carlos Alberto Colon MD, 25 mg at1 0911 isosorbide MONOnitrate (IMDUR) 24 hour tablet 30 mg, 30 mg, Oral, DAILY , Gomez Chris MD, 30 mg at 06/21/19 09 LISPRO insulin (RAPID-Acting) RESISTANT Correction Scale Inj, , Subcutaneous, AC/HS, Modesto Massey MD, Stopped at 06/21/19 0700 LISPRO insulin (RAPID-Acting) USUAL Correction Scale Inj, , Subcutaneous , AC/HS, Angel Morejon MD, Stopped at 06/20/19 0700 nicotine transdermal patch-daily (NICODERM) topical 7 mg/24 hr 1 Patch, 7 mg, Transdermal, DAILY, Justin Black MD, 1 Patch at 06/21/19 09 oxymetazoline (AFRIN) nasal spray 0.05 %, 1 [place], Nasal, Q12H PRN, Thania Drummond MD, 1 [place] at 06/16/19 2100 pantoprazole (PROTONIX) injection 40 mg, 40 mg, Intravenous Push, BID, aPtricia oMrejon MD, 40mg at 06/21/19 0911 polyethylene glycol (MIRALAX) oral pack 64.005 g, 64.005 g, Oral, DAILY , Myra Steen MD, 64.005 g at 06/21/19 0911 saline (OCEAN) nasal spray 0.65 %, 1 [place], Nasal, Q2H PRN, Patricia Morejon MD sodium bicarbonate tablet 1,300 mg, 1,300 mg, Oral, TID, Carlos Alberto Colon MD, 1,300 mgat 06/21/19 0911 Tamsulosin HCl (FLOMAX) capsule 0.4 mg, 0.4 mg, Oral, DAILY, Raymundo Estrada MD, 0.4 mg at 06/21/19 0911 BP (!) 142/75 | Pulse 68 | Temp 98.9 F (37.2 C) (Temporal) | Resp 18 | Ht 5' 7" (1.702 m) | Wt 176 lb 3.2 oz (79.9 kg) | SpO2 95% | BMI 27.60 kg /m Physical Exam: General appearance: aox3, no acute distress, appears stated age Eyes: conjunctivae and sclerae appear normal Throat: lips, mucosa, and tongue normal. Lungs: effort appears normal, no stridor noted Abdomen: soft, non-tender to palpation, no guarding or rebound tenderness; +BS; no masses appreciated Skin: no rashes appreciated, no jaundice. Neurologic: CNII-XII grossly intact, no acute focal deficits noted, no asterixis. Extremities: no peripheral edema, no muscle wasting appreciated. Laboratory: Recent Labs 06/19/19 0457 06/19/19 1638 06/20/19 0504 06/21/19 0540 NA 136 -- 138 139 K 4.1 -- 3.5 3.7 CL 104 -- 102 99 CO2 21* -- 26 27 BUN 113* -- 113* 108* CREATININE 6.5* -- 6.4* 6.3* CALCIUM 7.0* -- 7.1* 7.4* ALT 53 -- 55 61 AST 39 -- 27 35 GLUCOSE 331* 216* 136* 93 Recent Labs 06/19/19 0457 06/20/19 0504 06/21/19 0540 WBC 12.60* 16.32* 12.15* HGB 8.7* 8.2* 9.4* HCT 26.5* 24.8* 30.5* No results for input(s): INR in the last 72 hours. A/P: 79M COPD, CVA, HTN, gout, bph, bioprosthetic AVR presented to [facility] on 06/11 for acute renal failure, GI consulted for decreasing normocytic anemia. Patient was unsure if he wanted to do procedure and talked to partner, Vaishali Watson [phone]. As of yesterday he has decided that he does want the procedures. However was unable to complete prep yesterday morning. 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 - Give Mg-Citrate now along with mirlax and tap water enemas until clear - IV PPI 40mg bid - last 1u PRBC given 06/19 - cbc q12, keep hgb>8 - tentative plan for egd/colonoscopy today if pt is clear by noon - N.p.o. besides prep Don't hesitate to call with any questions or concerns. Mer Whitman MD Gastroenterology & Hepatology Fellow Associated attestation - Primitivo Agrawal MD - 06/21/2019 1:42 PM [facility] Supervising MD Documentation Date of Service: 06/21/2019 B# [id number] I saw and evaluated the patient. Discussed with resident and agree with the resident's findings andplan as documented in the resident's note. Additional Comments: Risk, benefit, alternative options and complications was explained. He understood and agreed to have the procedures done. All questions were answered. Primitivo Agrawal MD Supervising Patricia Hernandez MD - 06/20/2019 4:32 PM EST [facility] [place]. [id number] Hospitalist Progress Note Date of Service: 06/20/2019 Patient: Kamar Segura B #: [id number] Attending: PATRICIA MOREJON MD ,MD Subjective: No new complains Physical: Objective: Blood pressure 115/70, pulse 70, temperature 98.6 F (37 C), temperature source Temporal, resp. rate 18, height 5' 7" (1.702 m), weight 176 lb 3.2 oz (79.9 kg), SpO2 94 %. General: alert, no distress Lungs: clear to auscultation Heart: S1 and S2 are regular rate and rhythm Abd: s1, s2, regular Ext: 1+ leg edema Neuro: Mental status:awake, alert and oriented Data: Lab Results Component Value Date WBC 16.32 (H) 06/20/2019 HGB 8.2 (L) 06/20/2019 HCT 24.8 (L) 06/20/2019 PLAT 281 06/20/2019 Lab Results Component Value Date NA 138 06/20/2019 K 3.5 06/20/2019 CL 102 06/20/2019 CO2 26 06/20/2019 GLUCOSE 136 (H) 06/20/2019 BUN 113 (H) 06/20/2019 CREATININE 6.4 (H) 06/20/2019 CALCIUM 7.1 (L) 06/20/2019 EGFR 10 06/20/2019 Plan/Impression: Acute kidney injury on CKD stage IV:improving Baseline CKD stage IIIb/IV, baseline creatinine around 2.4. Cr 6/8 today. Suspect due toprolonged prerenal, may have progressed toATN. No hematuria/pyuria/significantproteinuria. CT abdomen ruled out acute obstruction Acid-base: Non-anion gap metabolic acidosis, s/p bicarb drip, sodium bicar PO started Nephrology following, no acute indications for dialysis as of now. Lasix changed to 120 mg BID. Nephrology signed off and asked to follow up as outpatient Seizure: "Initial episode of tonic-clonic seizure lasting for 40 seconds followed by a small postictal episode before admission." EEG normal Neurologyeval apprecaited No further seizures, not started on Keppra as of now. likely metabolic cause Hypertension: continue amlodipine/Imdur/hydralzine. Diarrhea: Resolved. Acute blood loss anemia HB 7.8->6.9->9 Folate/vitamin b21 WNL Ferritin 92, iron sat 31%. S/pIV iron x1 and aranesp. FOBT positive Received PRBC GI consulted: Plan for EGD and colonoscopy from tomorrow COPDexacerbation Decrease solumedrol to q12 Continue duonebs Incentive spirometry Improving CXR-> Bilateral patchy opacities, interlobular septal prominence, and left pleural effusion, likely acute pulmonary edema as a result of volume overload due to EDILSON on CKD IV, than a pneumonia. S/p IV lasix on 06/15. Pt sob improving , off oxygen and afebrile. Will monitor. 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 Continue Ergocalciferol 96163 unit every week for 12 weeks and then recheck Vit D 25 and PTHas outpatient Phos is improved and now 4.2. Renal diet Uncontrolled DM Worsened by Prednisone which are beng given for COPD IV insulin and ISS coverage given Disposition: Pending progress Author: Patricia Morejon MD Mer Xie MD - 06/20/2019 9:52 AM EST Gastroenterology Progress Note [address] [address] ADMISSION DATE: 06/11/19 LOCATION: [place] ATTENDING: PATRICIA MOREJON MD ,MD Interval Hx No acute events overnight, patient has decided he does want the procedures today , has completed approximately half prep as of this morning Current Facility-Administered Medications: amLodipine (NORVASC) tablet 10 mg, 10 mg, Oral, DAILY, Raymundo Estrada MD, 10 mg at 06/20/19 0900 aspirin (ECOTRIN) enteric coated tablet 81 mg, 81 mg, Oral, DAILY, Raymundo Estrada MD, 81 mg at1 0900 atorvastatin (LIPITOR) tablet 80 mg, 80 mg, Oral, QHS, Raymundo Estrada MD, 80 mg at 06/19/19 202 budesonide (RHINOCORT AQ) nasal spray 1 [place], 1 [place], Nasal, DAILY, Constantino Durham MD, 1 [place] at 06/20/19 0901 ergocalciferol (DRISDOL, CALCIFEROL, VITAMIN D) capsule 50,000 Units, 50 ,000 Units, Oral, Q7D, Lizzie Golden MD, 50,000 Units at 06/19/19 1135 finasteride (PROSCAR) tablet 5 mg, 5 mg, Oral, DAILY, Raymundo Estrada MD, 5 mg at 06/20/19 0900 furosemide (LASIX) injection 80 mg, 80 mg, Intravenous Push, BID DIURETIC, Patricia Morejon MD, 80 mg at 06/20/19 0901 guaifenesin (ORGANIDIN-NR) tablet 200 mg, 200 mg, Oral, QID, Justin Black MD, 200 mg at 06/20/19 0900 hydralazine (APRESOLINE) injection 10 mg, 10 mg, Intravenous Push, Q6H PRN, Constantino Durham MD, 10 mg at 06/14/19 0430 hydrALAZINE (APRESOLINE) tablet 25 mg, 25 mg, Oral, TID, Carlos Albreto Colon MD, 25 mg at1 0900 isosorbide MONOnitrate (IMDUR) 24 hour tablet 30 mg, 30 mg, Oral, DAILY , Gomez Chris MD, 30 mg at 06/20/19 0900 LISPRO insulin (RAPID-Acting) RESISTANT Correction Scale Inj, , Subcutaneous, AC/HS, Modesto Massey MD, Stopped at 06/19/19 2100 LISPRO insulin (RAPID-Acting) USUAL Correction Scale Inj, , Subcutaneous , AC/HS, Angel Morejon MD, Stopped at 06/20/19 0700 magnesium sulfate IV premix 1 g, 1 g, Intravenous, Q1H, Patricia Morejon MD nicotine transdermal patch-daily (NICODERM) topical 7 mg/24 hr 1 Patch, 7 mg, Transdermal, DAILY, Justin Black MD, 1 Patch at 06/20/19 0902 normal saline IV, , Intravenous, Continuous, Harvey Alvarez MD oxymetazoline (AFRIN) nasal spray 0.05 %, 1 [place], Nasal, Q12H PRN, Thania Drummond MD, 1 [place] at 06/16/19 2100 pantoprazole (PROTONIX) injection 40 mg, 40 mg, Intravenous Push, BID, Patricia Morejon MD, 40mg at 06/20/19 0900 saline (OCEAN) nasal spray 0.65 %, 1 [place], Nasal, Q2H PRN, Patricia Morejon MD sodium bicarbonate tablet 1,300 mg, 1,300 mg, Oral, TID, Carlos Alberto Colon MD, 1,300 mgat 06/20/19 09 Tamsulosin HCl (FLOMAX) capsule 0.4 mg, 0.4 mg, Oral, DAILY, Raymundo Estrada MD, 0.4 mg at 06/20/19 0900 BP 115/70 | Pulse 70 | Temp 98.6 F (37 C) (Temporal) | Resp 18 | Ht 5' 7" (1.702 m) | Wt 176 lb 3.2 oz (79.9 kg) | SpO2 98% | BMI 27.60 kg/m Physical Exam: General appearance: aox3, no acute distress, appears stated age Eyes: conjunctivae and sclerae appear normal Throat: lips, mucosa, and tongue normal. Lungs: effort appears normal, no stridor noted Abdomen: soft, non-tender to palpation, no guarding or rebound tenderness; +BS; no masses appreciated Skin: no rashes appreciated, no jaundice. Neurologic: CNII-XII grossly intact, no acute focal deficits noted, no asterixis. Extremities: no peripheral edema, no muscle wasting appreciated. Laboratory: Recent Labs 06/18/19 0427 06/19/19 0457 06/19/19 1638 06/20/19 0504 NA 138 | 138 136 -- 138 K 4.1 | 4.1 4.1 -- 3.5 CL 105 | 105 104 -- 102 CO2 23 | 23 21* -- 26 BUN 108* | 108* 113* -- 113* CREATININE 6.2* | 6.2* 6.5* -- 6.4* CALCIUM 6.9* | 6.9* 7.0* -- 7.1* ALT 53 53 -- 55 AST 27 39 -- 27 GLUCOSE 225* | 225* 331* 216* 136* Recent Labs 06/18/19 0427 06/19/19 0457 06/20/19 0504 WBC 12.06* 12.60* 16.32* HGB 6.9* 8.7* 8.2* HCT 21.3* 26.5* 24.8* No results for input(s): INR in the last 72 hours. A/P: 79M COPD, CVA, HTN, gout, bph, bioprosthetic AVR presented to [facility] on 06/11 for acute renal failure, GI consulted for decreasing normocytic anemia. Patient was unsure if he wanted to do procedure and talked to partner, Vaishali Watson . As of today he has decided that he does want the procedures. Thus far he has completed approximately half of his prep - IV PPI 40mg bid - cbc q12, keep hgb>8 - tentative plan for egd/colonoscopy today if prep is completed prior to noon -N.p.o. besides prep Don't hesitate to call with any questions or concerns. Mer Whitman MD Gastroenterology & Hepatology Fellow Associated attestation - Primitivo Agrawal MD - 06/20/2019 2:04 PM [facility] Supervising MD Documentation Date of Service: 06/20/2019 B# [id number] I saw and evaluated the patient. Discussed with resident and agree with the resident's findings andplan as documented in the resident's note. Additional Comments: incomplete prep. EGD and colonoscope for tomorrow. Clear liquid diet today. Risk, benefit, alternative options and complications was explained. He understood and agreed to havethe procedures done. All questions were answered. Primitivo Agrawal MD Supervising PhysicianModesto Massey MD - 06/19/2019 8:56 PM ESTPt is NPO and RN suggested to dc IV insulin Will order resistant scale for now pls adjust doses in the morning Pt refused tele several times- dcd Patricia English MD - 06/19/2019 4:24 PM EST [facility] [place]. [id number] Hospitalist Progress Note Date of Service: 06/19/2019 Patient: Kamar Segura B #: [id number] Attending: PATRICIA MOREJON MD ,MD Subjective: No new complains Still complains of stuffiness of nose Physical: Objective: Blood pressure 140/55, pulse 76, temperature 98.5 F (36.9 C) , temperature source Temporal, resp. rate 20, height 5' 7" (1.702 m), weight 176 lb 9.6 oz (80.1 kg), SpO2 92 %. General: alert, no distress Lungs: clear to auscultation Heart: S1 and S2 are regular rate and rhythm Abd: s1, s2, regular Ext: 1+ leg edema Neuro: Mental status:awake, alert and oriented Data: Lab Results Component Value Date WBC 12.60 (H) 06/19/2019 HGB 8.7 (L) 06/19/2019 HCT 26.5 (L) 06/19/2019 PLAT 285 06/19/2019 Lab Results Component Value Date NA 136 06/19/2019 K 4.1 06/19/2019 CL 104 06/19/2019 CO2 21 (L) 06/19/2019 GLUCOSE 331 (H) 06/19/2019 BUN 113 (H) 06/19/2019 CREATININE 6.5 (H) 06/19/2019 CALCIUM 7.0 (L) 06/19/2019 EGFR 10 06/19/2019 Plan/Impression: Acute kidney injury on CKD stage IV:improving Baseline CKD stage IIIb/IV, baseline creatinine around 2.4. Cr 6 today. Suspect due toprolonged prerenal, may have progressed toATN. No hematuria/pyuria/significantproteinuria. CT abdomen ruled out acute obstruction Acid-base: Non-anion gap metabolic acidosis, s/p bicarb drip, sodium bicar PO started Nephrology following, no acute indications for dialysis as of now. On Lasix 80 mg BID Seizure: "Initial episode of tonic-clonic seizure lasting for 40 seconds followed by a small postictal episode before admission." EEG normal Neurologyeval apprecaited No further seizures, not started on Keppra as of now. likely metabolic cause Hypertension: continue amlodipine/Imdur/hydralzine. Diarrhea: Resolved. Acute blood loss anemia HB 7.8->6.9 Folate/vitamin b21 WNL Ferritin 92, iron sat 31%. S/pIV iron x1 and aranesp. FOBT positive Received PRBC GI consulted: Plan for EGD and colonoscopy from tomorrow COPDexacerbation Decrease solumedrol to q12 Continue duonebs Incentive spirometry Improving CXR-> Bilateral patchy opacities, interlobular septal prominence, and left pleural effusion, likely acute pulmonary edema as a result of volume overload due to EDILSON on CKD IV, than a pneumonia. S/p IV lasix on 06/15. Pt sob improving , off oxygen and afebrile. Will monitor. 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 Continue Ergocalciferol 76353 unit every week for 12 weeks and then recheck Vit D 25 and PTHas outpatient Phos is improved and now 4.2. Renal diet Uncontrolled DM Worsened by Prednisone which are beng given for COPD IV insulin and ISS coverage given Disposition: Pending progress Author: Patricia Morejon MD Harvey Truong MD - 06/19/2019 9:47 AM EST IP Gastroenterology Progress Note [address] [address] ADMISSION DATE: 06/11/19 LOCATION: [place] ATTENDING: PATRICIA MOREJON MD ,MD Interval Hx No overnight events, received blood transfusion yesterday, no bm yesterday. Patient is still unsure he wants to do the procedure Current Facility-Administered Medications: amLodipine (NORVASC) tablet 10 mg, 10 mg, Oral, DAILY, Raymundo Estrada MD, 10 mg at 06/19/19 0840 aspirin (ECOTRIN) enteric coated tablet 81 mg, 81 mg, Oral, DAILY, Raymundo Estrada MD, 81 mg at1 0840 atorvastatin (LIPITOR) tablet 80 mg, 80 mg, Oral, QHS, Raymundo Estrada MD, 80 mg at 06/18/192056 budesonide (RHINOCORT AQ) nasal spray 1 [place], 1 [place], Nasal, DAILY, Constantino Durham MD, 1 [place] at 06/17/19 0842 ergocalciferol (DRISDOL, CALCIFEROL, VITAMIN D) capsule 50,000 Units, 50 ,000 Units, Oral, Q7D, Lizzie Golden MD, 50,000 Units at 06/12/19 1104 finasteride (PROSCAR) tablet 5 mg, 5 mg, Oral, DAILY, Raymundo Estrada MD, 5 mg at 06/19/19 0841 furosemide (LASIX) injection 80 mg, 80 mg, Intravenous Push, BID DIURETIC, Patricia Morejon MD, 80 mg at 06/19/19 0840 guaifenesin (ORGANIDIN-NR) tablet 200 mg, 200 mg, Oral, QID, Justin Black MD, 200 mg at 06/19/19 0840 heparin injection 5000 UNIT/ML, 5,000 Units, Subcutaneous, Q8H (Heparin ), Raymundo Estrada MD, 5,000 Units at 06/19/19 0530 hydralazine (APRESOLINE) injection 10 mg, 10 mg, Intravenous Push, Q6H PRN, Constantino Durham MD, 10 mg at 06/14/19 0430 hydrALAZINE (APRESOLINE) tablet 25 mg, 25 mg, Oral, TID, Carlos Alberto Colon MD, 25 mg at108/19/18 2057 isosorbide MONOnitrate (IMDUR) 24 hour tablet 30 mg, 30 mg, Oral, DAILY , Gomez Chris MD, 30 mg at 06/18/19 0829 LISPRO insulin (RAPID-Acting) USUAL Correction Scale Inj, , Subcutaneous , AC/HS, Angel Morejon MD nicotine transdermal patch-daily (NICODERM) topical 7 mg/24 hr 1 Patch, 7 mg, Transdermal, DAILY, Justin Black MD, 1 Patch at 06/19/19 0840 oxymetazoline (AFRIN) nasal spray 0.05 %, 1 [place], Nasal, Q12H PRN, Thania Drummond MD, 1 [place] at 06/16/19 2100 pantoprazole (PROTONIX) injection 40 mg, 40 mg, Intravenous Push, BID, Patricia Morejon MD, 40mg at 06/19/19 0840 polyethylene glycol (MIRALAX) oral pack 17 g, 17 g, Oral, NOW, Willis Vizcaino MD predniSONE (DELTASONE) tablet 40 mg, 40 mg, Oral, DAILY, Willis Vizcaino MD, 40 mg at 06/19/19 0840 sodium bicarbonate tablet 1,300 mg, 1,300 mg, Oral, TID, Carlos Alberto Colon MD, 1,300 mgat 06/19/19 0840 Tamsulosin HCl (FLOMAX) capsule 0.4 mg, 0.4 mg, Oral, DAILY, Raymundo Estrada MD, 0.4 mg at 06/19/19 0840 BP (!) 143/56 | Pulse 74 | Temp 98.9 F (37.2 C) (Temporal) | Resp 18 | Ht 5' 7" (1.702 m) | Wt 176 lb 9.6 oz (80.1 kg) | SpO2 95% | BMI 27.66 kg /m Physical Exam: General appearance: aox3, no acute distress, appears stated age Eyes: conjunctivae and sclerae appear normal Throat: lips, mucosa, and tongue normal. Lungs: effort appears normal, no stridor noted Abdomen: soft, non-tender to palpation, no guarding or rebound tenderness; +BS; no masses appreciated Skin: no rashes appreciated, no jaundice. Neurologic: CNII-XII grossly intact, no acute focal deficits noted, no asterixis. Extremities: no peripheral edema, no muscle wasting appreciated. Laboratory: Recent Labs 06/17/19 0504 06/18/19 0427 06/19/19 0457 NA 139 138 | 138 136 K 3.9 4.1 | 4.1 4.1 CL 109* 105 | 105 104 CO2 20* 23 | 23 21* BUN 105* 108* | 108* 113* CREATININE 6.6* 6.2* | 6.2* 6.5* CALCIUM 7.1* 6.9* | 6.9* 7.0* ALT -- 53 53 AST -- 27 39 GLUCOSE 284* 225* | 225* 331* Recent Labs 06/18/19 0427 06/19/19 0457 WBC 12.06* 12.60* HGB 6.9* 8.7* HCT 21.3* 26.5* No results for input(s): INR in the last 72 hours. A/P: 79M COPD, CVA, HTN, gout, bph, bioprosthetic AVR presented to [facility] on 06/11 for acute renal failure, GI consulted for decreasing normocytic anemia. Patient unsure if he wants to do procedure and wants to talk to partner, Vaishali Watson [phone], again today prior to making decision - IV PPI 40mg bid - cbc q12, keep hgb>8 - tentative plan for egd/colonoscopy - if the patient declines procedure, would recommend continuing trending hemoglobin and pursuing as an outpatient is remains stable and without clinical signs of bleeding Don't hesitate to call with any questions or concerns. Harvey Alvarez MD PGY4 GI Fellow Associated attestation - Primitivo Agrawal MD - 06/19/2019 10:57 AM [facility] Supervising MD Documentation Date of Service: 06/19/2019 B# [id number] I saw and evaluated the patient. Discussed with resident and agree with the resident's findings andplan as documented in the resident's note. Primitivo Agrawal MD Supervising Patricia Hernandez MD - 06/18/2019 3:28 PM EST [facility] [place]. [id number] Hospitalist Progress Note Date of Service: 06/18/2019 Patient: Kamar Segura B #: [id number] Attending: PATRICIA MOREJON MD ,MD Subjective: NO new complains Had dropped Hb this AM, being transfused Physical: Objective: Blood pressure 122/46, pulse 74, temperature 99.7 F (37.6 C) , temperature source Temporal, resp. rate 19, height 5' 7" (1.702 m), weight 176 lb 9.6 oz (80.1 kg), SpO2 97 %. General: alert, no distress Lungs: clear to auscultation Heart: S1 and S2 are regular rate and rhythm Abd: s1, s2, regular Ext: 1+ leg edema Neuro: Mental status:awake, alert and oriented Data: Lab Results Component Value Date WBC 12.06 (H) 06/18/2019 HGB 6.9 (LL) 06/18/2019 HCT 21.3 (LL) 06/18/2019 PLAT 218 06/18/2019 Lab Results Component Value Date NA 138 06/18/2019 NA 138 06/18/2019 K 4.1 06/18/2019 K 4.1 06/18/2019 CL 105 06/18/2019 CL 105 06/18/2019 CO2 23 06/18/2019 CO2 23 06/18/2019 GLUCOSE 225 (H) 06/18/2019 GLUCOSE 225 (H) 06/18/2019 BUN 108 (H) 06/18/2019 BUN 108 (H) 06/18/2019 CREATININE 6.2 (H) 06/18/2019 CREATININE 6.2 (H) 06/18/2019 CALCIUM 6.9 (L) 06/18/2019 CALCIUM 6.9 (L) 06/18/2019 EGFR 11 06/18/2019 EGFR 11 06/18/2019 Plan/Impression: Acute kidney injury on CKD stage IV:improving Baseline CKD stage IIIb/IV, baseline creatinine around 2.4. Cr 6/8 today. Suspect due toprolonged prerenal, may have progressed toATN. No hematuria/pyuria/significantproteinuria. CT abdomen ruled out acute obstruction Acid-base: Non-anion gap metabolic acidosis, s/p bicarb drip, sodium bicar PO started Nephrology following, no acute indications for dialysis as of now. On Lasix 80 mg BID Seizure: "Initial episode of tonic-clonic seizure lasting for 40 seconds followed by a small postictal episode before admission." EEG normal Neurologyeval apprecaited No further seizures, not started on Keppra as of now. likely metabolic cause Hypertension: continue amlodipine/Imdur/hydralzine. Diarrhea: Resolved. Acute blood loss anemia HB 7.8->6.9 Folate/vitamin b21 WNL Ferritin 92, iron sat 31%. S/pIV iron x1 and aranesp. FOBT positive GI consulted: Plan for EGD and colonoscopy from tomorrow COPDexacerbation Decrease solumedrol to q12 Continue duonebs Incentive spirometry Improving CXR-> Bilateral patchy opacities, interlobular septal prominence, and left pleural effusion, likely acute pulmonary edema as a result of volume overload due to EDILSON on CKD IV, than a pneumonia. S/p IV lasix on 06/15. Pt sob improving , off oxygen and afebrile. Will monitor. 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 Continue Ergocalciferol 21258 unit every week for 12 weeks and then recheck Vit D 25 and PTHas outpatient Phos is improved and now 4.2. Renal diet Disposition: Pending progress Author: Patricia Morejon MD Juan Carlos Antonio MD - 06/18/2019 9:52 AM EST [address] [place] [address] Internal Medicine Progress Note Date of Service: 06/18/2019 Patient: Kamar Magana #: [id number] Attending: PATRICIA MOREJON MD ,MD Subjective: No acute event overnight Non compliant with fluid restriction. Lasix increased to 80 mg BID today Objective: Alert, oriented General: cooperative Heart: regular rate & rhythm Lungs: bilateral wheezing. Occasional crackles Abd: soft Ext: 1+ pedal edema Neuro: no focal deficits Vitals: Blood pressure 131/88, pulse 73, temperature 98.8 F (37.1 C), temperature source Temporal, resp. rate 19, height 5' 7" (1.702 m), weight 176 lb 9.6 oz (80.1 kg), SpO2 96 %. I/O: Intake/Output Summary (Last 24 hours) at 06/18/2019 0952 Last data filed at 06/18/2019 0945 Gross per 24 hour Intake 1030 ml Output 975 ml Net 55 ml Relevant labs and Radiology Results: Recent Labs 06/15/19 1134 06/16/19 0602 06/18/19 0427 WBC 7.90 9.08* 12.06* HGB 7.5* 7.8* 6.9* HCT 22.9* 23.8* 21.3* PLAT 202 229 218 Recent Labs 06/16/19 0555 06/17/19 0504 06/18/19 0427 NA 139 139 138 | 138 K 4.4 3.9 4.1 | 4.1 CL 107 109* 105 | 105 CO2 19* 20* 23 | 23 GLUCOSE 189* 284* 225* | 225* BUN 95* 105* 108* | 108* CREATININE 6.8* 6.6* 6.2* | 6.2* EGFR 10 10 11 | 11 CALCIUM 7.5* 7.1* 6.9* | 6.9* TP -- -- 5.4* ALBUMIN 3.6 3.2* 2.9* | 2.9* ALK -- -- 51 AST -- -- 27 ALT -- -- 53 TBILI -- -- 0.3 XR CHEST 1 VIEW Final Result Bilateral [...] by Akash Beach on 06/11/2019 8:26 PM Assessment/Plan: Principal Problem: EDILSON (acute kidney injury) (HCC) Active Problems: Essential hypertension, benign S/P AVR (aortic valve replacement) Seizure (HCC) 1. Acute Kidney Injury over CKD Stage 4: Patient has baseline CKD Stage 3b/4 with recent baseline Creatinine around 2.4. The likely cause of CKD is diabetes and hypertension. Suspect EDILSON due to prolonged prerenal, may have progressed to ATN. Unlikely GN/ AIN in absence of hematuria/ pyuria and significant proteinuria. Imaging negative for obstruction. -Creatinine improved to 6.2. Recommendations: -started on IV Lasix 80 mg BID today. Monitor response. If patient still gains weight, considering adding metolazone 5 mg q 72 hours. -Expect slow renal recovery considering advance CKD -No acute indication for dialysis today 2. Non anion gap Metabolic acidosis, resolved. Stop NaHCO3. 3. 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 Continue Ergocalciferol 33432 unit every week for 12 weeks and then recheck Vit D 25 and PTH as outpatient 5. Anemia: Acute drop in Hb to 6.9 from 7.8. Already received Darbe 120 mcg on 06/15/19. The acute drop can be explained by EDILSON/CKD. Consider other etiologies. Will defer work up to primary team Folic acid/B12 normal. Ferritin is 92. Iron sat is 31% Patient received 60 mcg darbe *1 on 06/15/19 and 06/16/19. Will take 1-2 weeks to respond to above treatment 7: COPD: - Management per primary team 7. Complex Renal cyst on CT scan CT abdomen and pelvis shows 4.4 cm cyst involving the right kidney. Low- intermediate density lesion arising from the upper left kidney measuring 1.7 cm. Will need outpatient follow up with Urology and further imaging. We will sign off Please call with questions Author: Juan Carlos Jeffries MD Patricia English MD - 06/17/2019 4:50 PM EST [facility] [place]. [id number] Hospitalist Progress Note Date of Service: 06/17/2019 Patient: Kamar Magana #: [id number] Attending: PATRICIA MOREJON MD , Subjective: Pt reports he feels better. Reports cough decreased, sob improving and occasional wheezing. Tolerating diet. Physical: Objective: Blood pressure (!) 149/64, pulse 87, temperature 98.1 F (36.7 C), temperature source Temporal, resp. rate 20, height 5' 7" (1.702 m), weight 174 lb 6.4 oz (79.1 kg), SpO2 96 %. General: alert, no distress Lungs: clear to auscultation Heart: S1 and S2 are regular rate and rhythm Abd: s1, s2, regular Ext: 1+ leg edema Neuro: Mental status:awake, alert and oriented Data: Lab Results Component Value Date WBC 9.08 (H) 06/16/2019 HGB 7.8 (L) 06/16/2019 HCT 23.8 (L) 06/16/2019 PLAT 229 06/16/2019 Lab Results Component Value Date NA 139 06/17/2019 K 3.9 06/17/2019 CL 109 (H) 06/17/2019 CO2 20 (L) 06/17/2019 GLUCOSE 284 (H) 06/17/2019 BUN 105 (H) 06/17/2019 CREATININE 6.6 (H) 06/17/2019 CALCIUM 7.1 (L) 06/17/2019 EGFR 10 06/17/2019 Plan/Impression: Acute kidney injury on CKD stage IV:improving Baseline CKD stage IIIb/IV, baseline creatinine around 2.4. Cr 6/8 today. Suspect due toprolonged prerenal, may have progressed toATN. No hematuria/pyuria/significantproteinuria. CT abdomen ruled out acute obstruction Acid-base: Non-anion gap metabolic acidosis, s/p bicarb drip, sodium bicar started Nephrology following, no acute indications for dialysis as of now. On Lasix 80 mg BID from today Seizure: "Initial episode of tonic-clonic seizure lasting for 40 seconds followed by a small postictal episode before admission." EEG normal Neurologyeval apprecaited No further seizures, not started on Keppra as of now. likely metabolic cause Hypertension: continue amlodipine/Imdur/hydralzine. Diarrhea: Resolved. Anemia: HB 7.8. Folate/vitamin b21 WNL Ferritin 92, iron sat 31%. S/pIV iron x1 and aranesp. Awaiting FOBT. No BM. COPDexacerbation Decrease solumedrol to q12 Continue duonebs Incentive spirometry Improving CXR-> Bilateral patchy opacities, interlobular septal prominence, and left pleural effusion, likely acute pulmonary edema as a result of volume overload due to EDILSON on CKD IV, than a pneumonia. S/p IV lasix on 06/15. Pt sob improving , off oxygen and afebrile. Will monitor. 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 Continue Ergocalciferol 15429 unit every week for 12 weeks and then recheck Vit D 25 and PTHas outpatient Phos is improved and now 4.2. Renal diet Disposition: Pending progress Author: Patricia Morejon MD Juan Carlos Antonio MD - 06/17/2019 3:23 PM EST [address] [place] [address] Internal Medicine Progress Note Date of Service: 06/17/2019 Patient: Kamar Segura B #: [id number] Attending: PATRICIA MOREJON MD ,MD Subjective: SOB has improved. Patient is non compliant with fluid restriction. BP acceptable at 149/64. Patient denies orthopnea/PND Objective: Alert, oriented General: cooperative Heart: regular rate & rhythm Lungs: decreased air entry. No wheezing today Abd: soft, nontender, nondistended, no masses or organomegaly; BS normal Ext: 1+ pedal edema Neuro: no focal deficits Vitals: Blood pressure (!) 149/64, pulse 87, temperature 98.1 F (36.7 C) , temperature sourceTemporal, resp. rate 20, height 5' 7" (1.702 m), weight 174 lb 6.4 oz (79.1 kg), SpO2 96 %. I/O: Intake/Output Summary (Last 24 hours) at 06/17/2019 1523 Last data filed at 06/17/2019 1230 Gross per 24 hour Intake 991 ml Output 510 ml Net 481 ml Relevant labs and Radiology Results: Recent Labs 06/15/19 1134 06/16/19 0602 WBC 7.90 9.08* HGB 7.5* 7.8* HCT 22.9* 23.8* PLAT 202 229 Recent Labs 06/15/19 1134 06/16/19 0555 06/17/19 0504 NA 136 139 139 K 4.6 4.4 3.9 CL 105 107 109* CO2 20* 19* 20* GLUCOSE 214* 189* 284* BUN 80* 95* 105* CREATININE 6.7* 6.8* 6.6* EGFR 10 10 10 CALCIUM 7.7* 7.5* 7.1* ALBUMIN -- 3.6 3.2* XR CHEST 1 VIEW Final Result Bilateral [...] 3. Small pleural effusions. Signed by Akash Baylee on 06/11/2019 8:26 PM Assessment/Plan: Principal Problem: EDILSON (acute kidney injury) (HCC) Active Problems: Essential hypertension, benign S/P AVR (aortic valve replacement) Seizure (HCC) 1. Acute Kidney Injury over CKD Stage 4: Patient has baseline CKD Stage 3b/4 with recent baseline Creatinine around 2.4. The likely cause of CKD is diabetes and hypertension. Suspect EDILSON due to prolonged prerenal, may have progressed to ATN. Unlikely GN/ AIN in absence of hematuria/ pyuria and significant proteinuria. Imaging negative for obstruction. -Creatinine improved to 6.6. BUN trended up likely due to steroid use. No uremic symptoms Recommendations: -Increase IV Lasix to 80 mg BID. Accurate I/O. Keep patient -1 L to -2 L/day. Fluid restrict to 1.8 l/day. Na restrict to 2 g/day -Expect slow renal recovery considering advance CKD -No acute indication for dialysis today - BMP daily - Renal diet - Dose all meds for eGFR 2. Non anion gap Metabolic acidosis: -Continue NaHCO3 1300 mg BID - daily BMP 3. 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 Continue Ergocalciferol 37927 unit every week for 12 weeks and then recheck Vit D 25 and PTH as outpatient 5. Anemia: Hb is 7.8 Folic acid/B12 normal. Ferritin is 92. Iron sat is 31% Patient received 60 mcg darbe *1 on 06/15/19 and 06/16/19. Will take 1-2 weeks to respond to above treatment 7: COPD: - Management per primary team 7. Complex Renal cyst on CT scan CT abdomen and pelvis shows 4.4 cm cyst involving the right kidney. Low- intermediate density lesion arising from the upper left kidney measuring 1.7 cm. Will need outpatient follow up with Urology and further imaging. Please call me with any questions Author: Juan Carlos Jeffries MD Juan Carlos Antonio MD - 06/16/2019 3:46 PM EST [address] [place] [address] Internal Medicine Progress Note Date of Service: 06/16/2019 Patient: Kamar Magana #: [id number] Attending: CARLOS ALBERTO COLON MD ,MD Subjective: Patient sitting in chair. He denies chest pain. UOP not accurately documents Patient started on solumedrol yesterday Objective: Alert, oriented General: cooperative Heart: regular rate & rhythm Lungs: decreased air entry. No wheezing today Abd: soft, nontender, nondistended, no masses or organomegaly; BS normal Ext: 1+ pedal edema Neuro: no focal deficits Vitals: Blood pressure (!) 157/71, pulse 85, temperature 99.3 F (37.4 C) , temperature sourceTemporal, resp. rate 20, height 5' 7" (1.702 m), weight 172 lb 6.4 oz (78.2 kg), SpO2 96 %. I/O: Intake/Output Summary (Last 24 hours) at 06/16/2019 1546 Last data filed at 06/16/2019 1515 Gross per 24 hour Intake 925 ml Output Net 925 ml Relevant labs and Radiology Results: Recent Labs 06/14/19 0512 06/15/19 1134 06/16/19 0602 WBC 5.32 7.90 9.08* HGB 8.4* 7.5* 7.8* HCT 25.6* 22.9* 23.8* PLAT 193 202 229 Recent Labs 06/14/19 0512 06/15/19 1134 06/16/19 0555 NA 139 | 141 136 139 K 4.5 | 4.5 4.6 4.4 CL 110* | 110* 105 107 CO2 17* | 21* 20* 19* GLUCOSE 107* | 118* 214* 189* BUN 80* | 80* 80* 95* CREATININE 6.8* | 6.7* 6.7* 6.8* EGFR 10 | 10 10 10 CALCIUM 7.3* | 7.4* 7.7* 7.5* ALBUMIN 3.3* -- 3.6 XR CHEST 1 VIEW Final Result Bilateral [...] by Akash Beach on 06/11/2019 8:26 PM Assessment/Plan: Principal Problem: EDILSON (acute kidney injury) (HCC) Active Problems: Essential hypertension, benign S/P AVR (aortic valve replacement) Seizure (HCC) 1. Acute Kidney Injury over CKD Stage 4: Patient has baseline CKD Stage 3b/4 with recent baseline Creatinine around 2.4. The likely cause of CKD is diabetes and hypertension. Suspect EDILSON due to prolonged prerenal, may have progressed to ATN. Unlikely GN/ AIN in absence of hematuria/ pyuria and significant proteinuria. Imaging negative for obstruction. -Creatinine stable at 6.8. BUN trended up to 95 from 80. Likely due to high dose steroids.No uremic symptoms Recommendations: -Recommend IV Lasix 40 mg BID. Accurate I/O. Keep patient -1 L to -2 L/day. Fluid restrict to 1.8 l/day. Na restrict to 2 g/day -Expect slow renal recovery considering advance CKD -No acute indication for dialysis today - BMP daily - Renal diet - Dose all meds for eGFR 2. Non anion gap Metabolic acidosis: -Continue NaHCO3 1300 mg BID - daily BMP 3. 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 Continue Ergocalciferol 09861 unit every week for 12 weeks and then recheck Vit D 25 and PTH as outpatient 5. Anemia: Hb is 7.8 Folic acid/B12 normal. Ferritin is 92. Iron sat is 31% Patient received 60 mcg darbe *1 on 06/15/19 and 12/26/19. Will take 1-2 weeks to respond to above treatment 7: COPD: - On solu medrol. - Management per primary team 7. Complex Renal cyst on CT scan CT abdomen and pelvis shows 4.4 cm cyst involving the right kidney. Low- intermediate density lesion arising from the upper left kidney measuring 1.7 cm. Will need outpatient follow up with Urology and further imaging. Please call me with any questions Author: Juan Carlos Jeffries MD Carlos Alberto Cárdenas MD - 06/16/2019 12:56 PM EST [facility] [place]. [id number] Hospitalist Progress Note Date of Service: 06/16/2019 Patient: Kamar Magana #: [id number] Attending: CARLOS ALBERTO COLON MD ,MD Subjective: Pt reports he feels better. Reports cough decreased, sob improving and occasional wheezing. Tolerating diet. Physical: Objective: Blood pressure (!) 157/71, pulse 88, temperature 99.3 F (37.4 C), temperature source Temporal, resp. rate 20, height 5' 7" (1.702 m), weight 172 lb 6.4 oz (78.2 kg), SpO2 96 %. General: alert, no distress Lungs: clear to auscultation Heart: S1 and S2 are regular rate and rhythm Abd: s1, s2, regular Ext: 1+ leg edema Neuro: Mental status:awake, alert and oriented Data: Lab Results Component Value Date WBC 9.08 (H) 06/16/2019 HGB 7.8 (L) 06/16/2019 HCT 23.8 (L) 06/16/2019 PLAT 229 06/16/2019 Lab Results Component Value Date NA 139 06/16/2019 K 4.4 06/16/2019 CL 107 06/16/2019 CO2 19 (L) 06/16/2019 GLUCOSE 189 (H) 06/16/2019 BUN 95 (H) 06/16/2019 CREATININE 6.8 (H) 06/16/2019 CALCIUM 7.5 (L) 06/16/2019 EGFR 10 06/16/2019 Plan/Impression: Acute kidney injury on CKD stage IV:improving Baseline CKD stage IIIb/IV, baseline creatinine around 2.4. Cr 6/8 today. Suspect due toprolonged prerenal, may have progressed toATN. No hematuria/pyuria/significantproteinuria. CT abdomen ruled out acute obstruction Acid-base: Non-anion gap metabolic acidosis, s/p bicarb drip, sodium bicar started Nephrology following, no acute indications for dialysis as of now. Seizure: "Initial episode of tonic-clonic seizure lasting for 40 seconds followed by a small postictal episode before admission." EEG normal Neurologyeval apprecaited No further seizures, not started on Keppra as of now. likely metabolic cause Hypertension: continue amlodipine/Imdur/hydralzine. Diarrhea: Resolved. Anemia: HB 7.8. Folate/vitamin b21 WNL Ferritin 92, iron sat 31%. S/pIV iron x1 and aranesp. Awaiting FOBT. No BM. COPDexacerbation Decrease solumedrol to q12 Continue duonebs Incentive spirometry Improving CXR-> Bilateral patchy opacities, interlobular septal prominence, and left pleural effusion, likely acute pulmonary edema as a result of volume overload due to EDILSON on CKD IV, than a pneumonia. S/p IV lasix on 06/15. Pt sob improving , off oxygen and afebrile. Will monitor. 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 Continue Ergocalciferol 77966 unit every week for 12 weeks and then recheck Vit D 25 and PTHas outpatient Phos is improved and now 4.2. Renal diet Disposition: Pending progress Author: Carlos Alberto Colon MD Wallace Crowell MD - 06/15/2019 12:37 PM EST [address] [place] [address] Internal Medicine Progress Note Date of Service: 06/15/2019 Patient: Kamar Segura B #: [id number] Attending: CARLOS ALBERTO COLON MD ,MD Subjective: No acute events overnight. Patient is seen and examined at bedside. Patient feels better. Urine output is improved. Objective: Alert, oriented General: cooperative Heart: regular rate & rhythm Lungs: Bilateral inspiratory and expiratory wheeze Abd: soft, nontender, nondistended, no masses or organomegaly; BS normal Ext: 1+ pedal edea Neuro: no focal deficits Vitals: Blood pressure 140/69, pulse 86, temperature 98.9 F (37.2 C), temperature source Temporal, resp. rate 20, height 5' 7" (1.702 m), weight 171 lb 6.4 oz (77.7 kg), SpO2 95 %. I/O: Intake/Output Summary (Last 24 hours) at 06/15/2019 1237 Last data filed at 06/15/2019 1215 Gross per 24 hour Intake 716 ml Output 850 ml Net -134 ml Relevant labs and Radiology Results: Recent Labs 06/13/19 0359 06/14/19 0512 06/15/19 1134 WBC 4.76 5.32 7.90 HGB 8.0* 8.4* 7.5* HCT 24.3* 25.6* 22.9* PLAT 180 193 202 Recent Labs 06/12/19 1601 06/13/19 0359 06/14/19 0512 06/15/19 1134 NA 139 139 139 | 141 136 K 4.9 4.4 4.5 | 4.5 4.6 CL 111* 111* 110* | 110* 105 CO2 18* 20* 17* | 21* 20* GLUCOSE 112* 114* 107* | 118* 214* BUN 80* 76* 80* | 80* 80* CREATININE 7.4* 7.0* 6.8* | 6.7* 6.7* EGFR 9 9 10 | 10 10 CALCIUM 6.9* 7.1* 7.3* | 7.4* 7.7* TP -- 5.4* -- -- ALBUMIN 3.3* 2.9* 3.3* -- ALK -- 47 -- -- AST -- 24 -- -- ALT -- 26 -- -- TBILI -- 0.4 -- -- XR CHEST 1 VIEW Final Result Bilateral patchy opacities, interlobular septal prominence, and left pleural effusion would most commonly represent pulmonary edema. Multifocal pneumonia could also appear this way in the appropriate clinical setting. Signed by Satre Stuelke, MD, MFA on 06/14/2019 10:42 AM XR [...] by Akash Beach on 06/11/2019 8:26 PM Assessment/Plan: Principal Problem: EDILSON (acute kidney injury) (HCC) Active Problems: Essential hypertension, benign S/P AVR (aortic valve replacement) Seizure (HCC) 1. Acute Kidney Injury over CKD Stage 4: Patient has baseline CKD Stage 3b/4 with recent baseline Creatinine around 2.4. The likely cause of CKD is diabetes and hypertension. Suspect EDILSON due to prolonged prerenal, may have progressed to ATN. Unlikely GN/ AIN in absence of hematuria/ pyuria and significant proteinuria. Imaging negative for obstruction. -Creatinine has improved from 7-6.7 today Recommendations: -Patient got Lasix yesterday. We will hold Lasix today. -We are hopeful of renal recovery in the next few days. Of note, patient has advanced renal disease. -No acute indication for dialysis today - BMP daily - Renal diet - Dose all meds for eGFR 2. Hyperkalemia, resolved K is now 4.4. Monitor RFT daily 3. Non anion gap Metabolic acidosis: -We will resume his sodium bicarbonate tablets from tomorrow onward 4. 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 Continue Ergocalciferol 18480 unit every week for 12 weeks and then recheck Vit D 25 and PTH as outpatient Phos is improving and now 5.8. Continue to monitor Phos daily Renal diet 5. Anemia: Hb is 7.5 Folic acid/B12 normal. Ferritin is 92. Iron sat is 31% Transfuse PRN for Hb<7. -We recommend IV iron. We will also give 1 dose of Aranesp 60 mcg today. Further evaluate per primary team 7: COPD: -Past medical history of COPD, coronary artery disease -Complaint of persistent wheeze with cough -He also needs infectious work-up to rule out the infectious cause of COPD exacerbation 7. Complex Renal cyst on CT scan CT abdomen and pelvis shows 4.4 cm cyst involving the right kidney. Low- intermediate density lesion arising from the upper left kidney measuring 1.7 cm. Will need outpatient follow up with Urology and furtherimaging. Author: Wallace Bains MD Carlos Alberto Cárdenas MD - 06/15/2019 10:38 AM EST [facility] [place]. [id number] Hospitalist Progress Note Date of Service: 06/15/2019 Patient: Kamar Segura B #: [id number] Attending: CARLOS ALBERTO COLON MD ,MD Subjective: Pt seen and examined. Off oxygen, reports he feels better. Sob improving. Continue to report cough. Afebrile. Physical: Objective: Blood pressure 140/69, pulse 86, temperature 98.9 F (37.2 C) , temperature source Temporal, resp. rate 20, height 5' 7" (1.702 m), weight 171 lb 6.4 oz (77.7 kg), SpO2 95 %. General: alert, no distress Lungs: clear to auscultation Heart: S1 and S2 are regular rate and rhythm Abd: soft, Nt, ND, +BS Ext: 1+ leg edema Neuro: Mental status:awake, alert and oriented Data: Lab Results Component Value Date WBC 5.32 06/14/2019 HGB 8.4 (L) 06/14/2019 HCT 25.6 (L) 06/14/2019 PLAT 193 06/14/2019 Lab Results Component Value Date NA 141 06/14/2019 NA 139 06/14/2019 K 4.5 06/14/2019 K 4.5 06/14/2019 CL 110 (H) 06/14/2019 CL 110 (H) 06/14/2019 CO2 21 (L) 06/14/2019 CO2 17 (L) 06/14/2019 GLUCOSE 118 (H) 06/14/2019 GLUCOSE 107 (H) 06/14/2019 BUN 80 (H) 06/14/2019 BUN 80 (H) 06/14/2019 CREATININE 6.7 (H) 06/14/2019 CREATININE 6.8 (H) 06/14/2019 CALCIUM 7.4 (L) 06/14/2019 CALCIUM 7.3 (L) 06/14/2019 EGFR 10 06/14/2019 EGFR 10 06/14/2019 Plan/Impression: Acute kidney injury on CKD stage IV:improving Baseline CKD stage IIIb/IV, baseline creatinine around 2.4. Suspect due to prolonged prerenal, may have progressed to ATN. No hematuria/ pyuria/ significant proteinuria. CT abdomen ruled out acute obstruction Acid-base: Non-anion gap metabolic acidosis, s/p bicarb drip, sodium bicar started Nephrology following, no acute indications for dialysis as of now Volume: Mild overload, lege edema/CXR likely pulmonary edema s/p IV lasix 40 mg x 1 yesterda. Will monitor BMP today. Seizure: " Initial episode of tonic-clonic seizure lasting for 40 seconds followed by a small postictal episode before admission." EEG normal Neurology eval apprecaited No further seizures, not started on Keppra as of now. likely metabolic cause Hypertension: continue amlodipine/Imdur/hydralzine. Diarrhea: Resolved. Anemia: HB 8.4. 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 The patient will need outpatient follow-up with urology and further imaging. COPD exacerbation Decrease solumedrol to q12 Continue duonebs Incentive spirometry Improving CXR likely pulmonary edema than a pneumonia. Will repeat today/tomorrow. Tobacco abuse Nicotine patch Disposition: Heparin sq Author: Carlos Alberto Colon MD Wallace Crowell MD - 06/14/2019 4:12 PM EST [address] [place] [address] Internal Medicine Progress Note Date of Service: 06/14/2019 Patient: Kamar Segura B #: [id number] Attending: CARLOS ALBERTO COLON MD ,MD Subjective: He was having shortness of breath and chest congestion but was given bronchodilators. -Patient denies any complaint of active chest pain, nausea, vomiting, diarrhea, fever associated with rigors and chills but having again bouts of cough with scanty sputum Objective: Alert, oriented General: cooperative Heart: regular rate & rhythm Lungs: Bilateral inspiratory and expiratory wheeze Abd: soft, nontender, nondistended, no masses or organomegaly; BS normal Ext: 1+ pedal edea Neuro: no focal deficits Vitals: Blood pressure (!) 146/62, pulse 85, temperature 98.9 F (37.2 C) , temperature sourceTemporal, resp. rate 24, height 5' 7" (1.702 m), weight 172 lb 12.8 oz (78.4 kg), SpO2 90 %. I/O: Intake/Output Summary (Last 24 hours) at 06/14/2019 1612 Last data filed at 06/14/2019 1230 Gross per 24 hour Intake 2944 ml Output 1600 ml Net 1344 ml Relevant labs and Radiology Results: Recent Labs 06/11/19 1836 06/13/19 0359 06/14/19 0512 WBC 5.43 4.76 5.32 HGB 8.6* 8.0* 8.4* HCT 27.6* 24.3* 25.6* PLAT 194 180 193 Recent Labs 06/11/19 1836 06/12/19 0654 06/12/19 1601 06/13/19 0359 06/14/19 0512 NA 137 < > 140 139 139 141 K 5.6* < > 5.3* 4.9 4.4 4.5 CL 111* < > 114* 111* 111* 110* CO2 15* < > 17* 18* 20* 21* GLUCOSE 116* < > 87 112* 114* 118* BUN 81* < > 84* 80* 76* 80* CREATININE 7.5* < > 7.4* 7.4* 7.0* 6.7* EGFR 9 < > 9 9 9 10 CALCIUM 6.7* < > 7.0* 6.9* 7.1* 7.4* TP 6.0* | 6.0* -- -- -- 5.4* -- ALBUMIN 3.2* | 3.2* -- 2.9* 3.3* 2.9* -- ALK 49 | 49 -- -- -- 47 -- AST 22 | 22 -- -- -- 24 -- ALT 21 | 21 -- -- -- 26 -- TBILI 0.4 | 0.4 -- -- -- 0.4 -- < > = values in this interval not displayed. XR CHEST 1 VIEW Final Result Bilateral [...] by Akash Beach on 06/11/2019 8:26 PM Assessment/Plan: Principal Problem: EDILSON (acute kidney injury) (HCC) Active Problems: Essential hypertension, benign S/P AVR (aortic valve replacement) Seizure (HCC) 1. Acute Kidney Injury over CKD Stage 4: Patient has baseline CKD Stage 3b/4 with recent baseline Creatinine around 2.4. The likely cause of CKD is diabetes and hypertension. Suspect EDILSON due to prolonged prerenal, may have progressed to ATN. Unlikely GN/ AIN in absence of hematuria/ pyuria and significant proteinuria. Imaging negative for obstruction. -Creatinine has improved from 7-6.7 today Recommendations: -Discontinue IV fluids as patient is having a history of coronary artery disease , COPD and CKD stageIV -X-ray showed signs of pulmonary edema -Needs echocardiogram -No acute indication for dialysis today - BMP daily - Renal diet - Dose all meds for eGFR 2. Hyperkalemia, resolved K is now 4.4. Monitor RFT daily 3. Non anion gap Metabolic acidosis: -We will resume his sodium bicarbonate tablets from tomorrow onward 4. 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 Continue Ergocalciferol 53572 unit every week for 12 weeks and then recheck Vit D 25 and PTH as outpatient Phos is improving and now 5.8. Continue to monitor Phos daily Renal diet 5. Blood Pressure: Continue Amlodipine 10 mg daily -And dose of hydralazine 25 mg 3 times daily has been uptitrated as patient's blood pressure has been running high 6. Anemia: Hb is 8 Folic acid/B12 normal. Ferritin is 92. Iron sat is 31% Transfuse PRN for Hb<7. -Patient can be given IV Ferrlecit or oral up to physician discretion for his low normal ferritin with normal T saturation Further evaluate per primary team 7: COPD: -Past medical history of COPD, coronary artery disease -Complaint of persistent wheeze with cough -He also needs infectious work-up to rule out the infectious cause of COPD exacerbation 7. Complex Renal cyst on CT scan CT abdomen and pelvis shows 4.4 cm cyst involving the right kidney. Low- intermediate density lesion arising from the upper left kidney measuring 1.7 cm. Will need outpatient follow up with Urology and furtherimaging. The patient was discussed with Author: Sony Medina MD [facility] Supervising MD Documentation ATTENDING ADDENDUM: Patient seen and examined on rounds with the residents. I have reviewed the above note and I agree with its findings as noted Carlos Alberto Cárdenas MD - 06/14/2019 8:38 AM EST [facility] [place] [address] Hospitalist Progress Note Date of Service: 06/14/2019 Patient: Kamar Segura [place] #: [id number] Attending: CARLOS ALBERTO COLON MD ,MD Subjective: Pt seen and examined. Pt reports wheezing and cough. Also states he feels anxious and depressed over his condition. Physical: Objective: Blood pressure (!) 176/79, pulse 91, temperature 97.9 F (36.6 C), temperature source Temporal, resp. rate 26, height 5' 7" (1.702 m), weight 165 lb (74.8 kg), SpO2 96 %. General: alert, no distress, mild respiratory distress on 3L NC Lungs: b/l diffuse wheezing. Heart: S1 and S2 are regular rate and rhythm Abd: obese, soft, NT, ND, +BS Ext: trace pretibial edema Neuro: Mental status:awake, alert and oriented Data: Lab Results Component Value Date WBC 5.32 06/14/2019 HGB 8.4 (L) 06/14/2019 HCT 25.6 (L) 06/14/2019 PLAT 193 06/14/2019 Plan/Impression: Acute kidney injury on CKD stage IV: improving Baseline CKD stage IIIb/IV, baseline creatinine around 2.4. Suspect due to prolonged prerenal, may have progressed to ATN. No hematuria/ pyuria/ significant proteinuria. CT abdomen ruled out acute obstruction Acid-base: Non-anion gap metabolic acidosis, on bicarb drip Nephrology following, no acute indications for dialysis as of now Continue half normal saline and bicarb. Seizure: " Initial episode of tonic-clonic seizure lasting for 40 seconds followed by a small postictal episode before admission." EEG pending Neurology eval No further seizures, not started on Keppra as of now. Hypertension: continue amlodipine, Imdur. BP not controlled. Increase hydralazine to 25 mg po tid Diarrhea: Resolved. Anemia: HB 8.4. Check FOBT Monitor Complex renal cyst on CT scan: CT abdomen pelvis showed 4.4 cm cyst involving the right kidney, low to intermediate density lesion arising from the upper left kidney measuring 1.7 cm. The patient will need outpatient follow-up with urology and further imaging. COPD exacerbation Start solumderol Change duonebs prn to scheduled q4 Incentive spirometry a Guaifenesin Check CXR Tobacco abuse Nicotine patch DVT Px: Heparin Disposition: Pending progress Author: Carlos Alberto Colon MD Wallace Crowell MD - 06/13/2019 4:42 PM EST [address] [place] [address] Internal Medicine Progress Note Date of Service: 06/13/2019 Patient: Kamar Segura B #: [id number] Attending: CARLOS ALBERTO COLON MD ,MD Subjective: No acute event overnight Making excellent urine. Almost 100 ml/hr Patient denies SOB/CP Objective: Alert, oriented General: cooperative Heart: regular rate & rhythm Lungs: clear to auscultation and percussion Abd: soft, nontender, nondistended, no masses or organomegaly; BS normal Ext: 1+ pedal edea Neuro: no focal deficits Vitals: Blood pressure (!) 173/78, pulse 72, temperature 99.1 F (37.3 C) , temperature sourceTemporal, resp. rate 24, height 5' 7" (1.702 m), weight 165 lb (74.8 kg), SpO2 94 %. I/O: Intake/Output Summary (Last 24 hours) at 06/13/2019 1642 Last data filed at 06/13/2019 1530 Gross per 24 hour Intake 370 ml Output 1275 ml Net -905 ml Relevant labs and Radiology Results: Recent Labs 06/11/19 1836 06/13/19 0359 WBC 5.43 4.76 HGB 8.6* 8.0* HCT 27.6* 24.3* PLAT 194 180 Recent Labs 06/11/19 1836 06/12/19 0654 06/12/19 1601 06/13/19 0359 NA 137 < > 140 139 139 K 5.6* < > 5.3* 4.9 4.4 CL 111* < > 114* 111* 111* CO2 15* < > 17* 18* 20* GLUCOSE 116* < > 87 112* 114* BUN 81* < > 84* 80* 76* CREATININE 7.5* < > 7.4* 7.4* 7.0* EGFR 9 < > 9 9 9 CALCIUM 6.7* < > 7.0* 6.9* 7.1* TP 6.0* | 6.0* -- -- -- 5.4* ALBUMIN 3.2* | 3.2* -- 2.9* 3.3* 2.9* ALK 49 | 49 -- -- -- 47 AST 22 | 22 -- -- -- 24 ALT 21 | 21 -- -- -- 26 TBILI 0.4 | 0.4 -- -- -- 0.4 < > = values in this interval not displayed. XR CHEST 1 VIEW Final Result No [...] by Akash Beach on 06/11/2019 8:26 PM Assessment/Plan: Principal Problem: EDILSON (acute kidney injury) (HCC) Active Problems: Essential hypertension, benign S/P AVR (aortic valve replacement) Seizure (HCC) 1. Acute Kidney Injury over CKD Stage 4: Patient has baseline CKD Stage 3b/4 with recent baseline Creatinine around 2.4. The likely cause of CKD is diabetes and hypertension. Suspect EDILSON due to prolonged prerenal, may have progressed to ATN. Unlikely GN/ AIN in absence of hematuria/ pyuria and significant proteinuria. Imaging negative for obstruction. Creatinine peak to 8 and now trending down. It is 7 today. Recommendations: - decrease 1/2NS with 75 meq HCO3 to 75 ml/hr till 9 pm and then further decrease it to 50 ml/hr - BMP daily - Renal diet - No acute indication for dialysis today - Dose all meds for eGFR -Recommend baseline echo . -Check urine protein and Creatinine ratio 2. Hyperkalemia, resolved K is now 4.4. Monitor RFT daily 3. Non anion gap Metabolic acidosis: HCO3 improved to 20. Continue 1/2NS with 75 meq HCO3@ 75 ml/hr till 9 pm and then further decrease it to 50 ml/hr 4. 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 Continue Ergocalciferol 19801 unit every week for 12 weeks and then recheck Vit D 25 and PTH as outpatient Phos is improving and now 5.8. Continue to monitor Phos daily Renal diet 5. Blood Pressure: Continue Amlodipine 10 mg daily At goal. 6. Anemia: Hb is 8 Folic acid/B12 normal. Ferritin is 92. Iron sat is 31% Transfuse PRN for Hb<7. Further evaluate per primary team 7. Complex Renal cyst on CT scan CT abdomen and pelvis shows 4.4 cm cyst involving the right kidney. Low- intermediate density lesion arising from the upper left kidney measuring 1.7 cm. Will need outpatient follow up with Urology and furtherimaging. Rest of management per primary team The patient was discussed with Author: Shama Diehl MD [facility] Supervising MD Documentation ATTENDING ADDENDUM: Patient seen and examined on rounds with the residents. I have reviewed the above note and I agree with its findings as noted Wallace Bains MD Laura Lazcano LPN - 06/13/2019 8:[address] ICU 1 [facility] [address] Patient: Kamar Segura Sex: male Date of : 1940 Handedness: UNKNOWN Date of test: 06/11/2019 Technologist's Notes: State: Awake Response to commands: Adequate Hyperventilation: None Photic stimulation: no Tense: no Uncooperative: no All tracings done with the International 10-20 system of electrode placement. Radiation Engineer: Laura Timmons LPN Racheal Min MD - 06/12/2019 5:17 PM EST [facility] [place]. [id number] Critical Care Medical Progress Note Date of Service: 06/12/2019 Admission Date: 06/11/19 Patient: Kamar Segura B #: [id number] Attending: TEDDY VENTURA MD ,MD Reason for ICU admission: EDILSON on CKD stage IV Subjective: Overnight events: None, no seizures reported. Symptoms: The patient reports that his cough is at baseline, he always sounds congested. Denies anyfurther shaking movements/tongue biting/urine/fecal incontinence. Reports feeling fatigued. Deniesshortness of breath/chest pain/ headache/abdominal pain. Vital Signs: Blood pressure (!) 143/67, pulse 70, temperature 98.5 F (36.9 C), temperature source Temporal, resp. rate 25, SpO2 95 %. I/O: Intake/Output Summary (Last 24 hours) at 06/12/2019 1718 Last data filed at 06/12/2019 1500 Gross per 24 hour Intake 2777 ml Output 1425 ml Net 1352 ml General:Alert, oriented, not in acute distress. Heart: RRR, normal S1, S2, no murmur, rubs or gallops. Lungs: Bilateral good air entry, clear to auscultation and percussion Abd: soft, nontender, nondistended, no masses or organomegaly; BS normal Ext: 1+ edema and distal pulses intact Neuro: no focal deficits, CN ll - Xll intact and muscle strength 5/5 bilateral Data: Recent Labs 06/11/19 1836 WBC 5.43 HGB 8.6* HCT 27.6* PLAT 194 Recent Labs 06/11/19 1836 06/12/19 0125 06/12/19 0654 06/12/19 1601 NA 137 137 140 139 K 5.6* 5.6* 5.3* 4.9 CL 111* 112* 114* 111* CO2 15* 17* 17* 18* GLUCOSE 116* 96 87 112* BUN 81* 86* 84* 80* CREATININE 7.5* 7.4* 7.4* 7.4* EGFR 9 9 9 9 CALCIUM 6.7* 7.1* 7.0* 6.9* TP 6.0* | 6.0* -- -- -- ALBUMIN 3.2* | 3.2* -- 2.9* 3.3* ALK 49 | 49 -- -- -- AST 22 | 22 -- -- -- ALT 21 | 21 -- -- -- TBILI 0.4 | 0.4 -- -- -- No results found for: INR pH Date Value Ref Range Status 06/11/2019 7.25 (L) 7.35 - 7.45 Final pCO2 Date Value Ref Range Status 06/11/2019 33 (L) 35 - 44 mmHg Final PO2 Date Value Ref Range Status 06/11/2019 70 67 - 95 mmHg Final % Saturation Date Value Ref Range Status 06/11/2019 90.2 (L) 92.0 - 98.0 % Final Base Excess Date Value Ref Range Status 06/11/2019 -12 (L) -2 - 2 mmol/L Final Assessment/Plan: 79-y.o. year old pt admitted to ICU with EDILSON on CKD Acute kidney injury on CKD stage IV: Baseline CKD stage IIIb/IV, baseline creatinine around 2.4, report of historical type IV RTA Presented with acute kidney injury, possibly prolonged prerenal EDILSON leading to ATN. No hematuria/pyuria/proteinuria. CT abdomen ruled out acute obstruction Acid-base: Non-anion gap metabolic acidosis, on bicarb drip Volume status: Hypovolemic to euvolemic Nephrology following, no acute indications for dialysis as of now We will continue with half normal saline and bicarb, BMP every 12 hours, get echo, replete electrolytes, renally dose meds Seizure: Initial episode of tonic-clonic seizure lasting for 40 seconds followed by a small postictal episodebefore admission Prolactin elevated EEG pending Neurology consult No further seizures, not started on Keppra as of now. Hypertension: We will continue amlodipine, discontinued HCTZ Diarrhea: Stool studies pending Anemia: We will check iron studies, ferritin B12 Complex renal cyst on CT scan: CT abdomen pelvis showed 4.4 cm cyst involving the right kidney, low to intermediate density lesion arising from the upper left kidney measuring 1.7 cm. The patient will need outpatient follow-up with urology and further imaging. COPD: FEV 31% Smokes cigar every day Not in exacerbation Continue duo nebs Incentive spirometry and Pep therapy. Hyperparathyroidism: Hypocalcemia, hyperphosphatemia secondary to CKD and vitamin D deficiency We will start vitamin D supplementation Repeat vitamin D and PTH as outpatient Skin Care needs: Per ICU protocol DVT Px: Heparin Disposition: Monitor in ICU. The above assessment and plan was discussed with Teddy Orozco MD Author: Racheal Herzog MD 06/12/19 17:18 documented in this encounter Plan of Treatment Date Type Specialty Care Team Description 06/27/2019 Office Visit Family Practice Garfield Bolden MD [address] [place] [address] [phone] Name Type Priority Associated Diagnoses Order Schedule REFER TO HOME HEALTH Referral Routine EDILSON (acute kidney injury) Ordered: ([facility]) Health Maintenance Due Date Last Done Comments [...] Author Type Problems Progress Blood Pressure Blood 127/60 No [place], < 140/90 Pressure (06/22/2019 Garfield Kaur, 3:11 PM EST) Note: This is an individualized treatment (blood pressure) goal for Kamar Segura: Displayed above (on the left) is your goal for blood pressure control. Your most recent blood pressure is also shown above, on the right. You should try to achieve blood pressures that are lower than your goal listed above (on the left). Smoking Cessation COPD No Garfield Bolden MD Note: This is an individualized treatment (COPD) goal for Kamar Segura: Quit smoking immediately! Your provider has information and resources that may help you to quit. Glycohemoglobin A1c < 7.0 Diabetes 5.5 (03/16/2019 11:46 No Garfield Bolden AM, MD Note: This is an individualized treatment (diabetes control, HgbA1C) goal for Kamar Segura: Displayed above is your progress towards your HgbA1C goal. Your goal is shown above (on the left); your most recent HgbA1C is shown on the right. Note that lower numbers are better. Keep immunizations current Lifestyle Garfield Smith MD Note: This is an individualized lifestyle goal for Kamar Segura: Please be sure to keep up-to-date on recommended immunizations. For example, this would include a yearly influenza vaccine. Immunization status can be seen by looking at the Health Maintenance sections of your [employer], Plan of Care, and any After Visit Summaries. Take all prescribed medications as Self-management Garfield Smith MD directed Note: This is an individualized [...] of this encounter Implants Implanted Type Area Pediatric Associate Device Shelf Model / Identifier Expiration Date Serial / Lot Resolution 350 Clip N/A: Colon 03/22/2022 [id number] / Implanted: Qty: 1 on 06/21/2019 by Primitivo Agrawal MD at [facility] / [id number] Description:Charged by GI documented as of this encounter Procedures Procedure Name Priority Date/Time Associated Comments Diagnosis HC GLUCOSE, BY Routine 06/22/2019 12:29 Results for MONITOR PM EST this procedure are in the results section. HC GLUCOSE, BY Routine 06/22/2019 8:19 Results for MONITOR AM EST this procedure are in the results section. COMPREHENSIVE Routine 06/22/2019 5:25 Results for METABOLIC PANEL AM EST this procedure W/REFLEX MAGNESIUM are in the results section. MAGNESIUM LEVEL Routine 06/22/2019 5:25 Results for AM EST this procedure are in the results section. CBC NO DIFFERENTIAL Routine 06/22/2019 5:25 Results for AM EST this procedure are in the results section. HC GLUCOSE, BY Routine 06/21/2019 9:04 Results for MONITOR PM EST this procedure are in the results section. HC GLUCOSE, BY Routine 06/21/2019 4:57 Results for MONITOR PM EST this procedure are in the results section. HC GLUCOSE, BY Routine 06/21/2019 3:27 Results for MONITOR PM EST this procedure are in the results section. TISSUE EXAM Routine 06/21/2019 1:36 Acute gastritis Results for PM EST without hemorrhage, this procedure unspecified are in the gastritis type results section. HC GLUCOSE, BY Routine 06/21/2019 1:00 Results for MONITOR PM EST this procedure are in the results section. COLONOSCOPY REPORT Routine 06/21/2019 12:45 Results for PM EST this procedure are in the results section. UPPER GI ENDOSCOPY Routine 06/21/2019 12:42 Results for REPORT PM EST this procedure are in the results section. XR RPH IMAGESTREAM Routine 06/21/2019 12:38 Results for PM EST this procedure are in the results section. ENDOSCOPY UPPER GI Planned Trip to 06/21/2019 12:37 OR PM EST COLONOSCOPY Planned Trip to 06/21/2019 12:37 OR PM EST COMPREHENSIVE Routine 06/21/2019 5:40 Results for METABOLIC PANEL AM EST this procedure W/REFLEX MAGNESIUM are in the results section. MAGNESIUM LEVEL Routine 06/21/2019 5:40 Results for AM EST this procedure are in the results section. CBC NO DIFFERENTIAL Routine 06/21/2019 5:40 Results for AM EST this procedure are in the results section. HC GLUCOSE, BY Routine 06/20/2019 10:04 Results for MONITOR PM EST this procedure are in the results section. HC GLUCOSE, BY Routine 06/20/2019 4:32 Results for MONITOR PM EST this procedure are in the results section. HC GLUCOSE, BY Routine 06/20/2019 12:01 Results for MONITOR PM EST this procedure are in the results section. COMPREHENSIVE Routine 06/20/2019 5:04 Results for METABOLIC PANEL AM EST this procedure W/REFLEX MAGNESIUM are in the results section. MAGNESIUM LEVEL Routine 06/20/2019 5:04 Results for AM EST this procedure are in the results section. CBC NO DIFFERENTIAL Routine 06/20/2019 5:04 Results for AM EST this procedure are in the results section. HC GLUCOSE, BY Routine 06/19/2019 8:32 Results for MONITOR PM EST this procedure are in the results section. HC GLUCOSE, BY Routine 06/19/2019 5:18 Results for MONITOR PM EST this procedure are in the results section. GLUCOSE, BLOOD STAT 06/19/2019 4:38 Results for PM EST this procedure are in the results section. HC GLUCOSE, BY Routine 06/19/2019 4:18 Results for MONITOR PM EST this procedure are in the results section. HC GLUCOSE, BY Routine 06/19/2019 11:34 Results for MONITOR AM EST this procedure are in the results section. COMPREHENSIVE Routine 06/19/2019 4:57 Results for METABOLIC PANEL AM EST this procedure W/REFLEX MAGNESIUM are in the results section. MAGNESIUM LEVEL Routine 06/19/2019 4:57 Results for AM EST this procedure are in the results section. CBC NO DIFFERENTIAL Routine 06/19/2019 4:57 Results for AM EST this procedure are in the results section. TRANSFUSE RED CELLS Routine 06/18/2019 1:03 PM EST TYPE AND SCREEN Routine 06/18/2019 7:18 Results for AM EST this procedure are in the results section. PREPARE RED CELLS Routine 06/18/2019 5:18 Results for LEUKOREDUCED AM EST this procedure are in the results section. CBC WITH Routine 06/18/2019 4:27 Results for DIFFERENTIAL AM EST this procedure are in the results section. COMPREHENSIVE Routine 06/18/2019 4:27 Results for METABOLIC PANEL AM EST this procedure W/REFLEX MAGNESIUM are in the results section. PATIENT TYPE Routine 06/18/2019 4:27 CONFIRMATION AM EST RENAL FUNCTION PANEL Routine 06/18/2019 4:27 Results for AM EST this procedure are in the results section. MAGNESIUM LEVEL Routine 06/18/2019 4:27 Results for AM EST this procedure are in the results section. OCCULT BLOOD STOOL Routine 06/17/2019 12:45 Results for (LAB) PM EST this procedure are in the results section. RAINBOW LAB HOLD Routine 06/17/2019 5:04 Results for TUBES AM EST this procedure are in the results section. RAINBOW DRAW Routine 06/17/2019 5:04 LAVENDER TOP AM EST RENAL FUNCTION PANEL Routine 06/17/2019 5:04 Results for AM EST this procedure are in the results section. CBC WITH Routine 06/16/2019 6:02 Results for DIFFERENTIAL AM EST this procedure are in the results section. RENAL FUNCTION PANEL Routine 06/16/2019 5:55 Results for AM EST this procedure are in the results section. BASIC METABOLIC STAT 06/15/2019 11:34 Results for PANEL AM EST this procedure are in the results section. CBC NO DIFFERENTIAL STAT 06/15/2019 11:34 Results for AM EST this procedure are in the results section. XR CHEST 1 VIEW STAT 06/14/2019 10:04 Results for AM EST this procedure are in the results section. RENAL FUNCTION PANEL Routine 06/14/2019 5:12 Results for AM EST this procedure are in the results section. BASIC METABOLIC Routine 06/14/2019 5:12 Results for PANEL AM EST this procedure are in the results section. CBC NO DIFFERENTIAL Routine 06/14/2019 5:12 Results for AM EST this procedure are in the results section. HC GLUCOSE, BY Routine 06/13/2019 8:08 Results for MONITOR PM EST this procedure are in the results section. CBC WITH Routine 06/13/2019 3:59 Results for DIFFERENTIAL AM EST this procedure are in the results section. IRON & TIBC WITH % Routine 06/13/2019 3:59 Results for SATURATION AM EST this procedure are in the results section. VITAMIN B12 / FOLATE Routine 06/13/2019 3:59 Results for AM EST this procedure are in the results section. RENAL FAILURE PANEL Routine 06/13/2019 3:59 Results for AM EST this procedure are in the results section. MAGNESIUM LEVEL Routine 06/13/2019 3:59 Results for AM EST this procedure are in the results section. FERRITIN Routine 06/13/2019 3:59 Results for AM EST this procedure are in the results section. EEG RESULT NOTE 06/13/2019 12:00 Results for AM EST this procedure are in the results section. RENAL FUNCTION PANEL STAT 06/12/2019 4:01 Results for PM EST this procedure are in the results section. MAGNESIUM LEVEL Routine 06/12/2019 4:01 Results for PM EST this procedure are in the results section. URINE PROTEIN / Routine 06/12/2019 11:10 Results for CREATININE RATIO AM EST this procedure are in the results section. URINE MICROSCOPIC STAT 06/12/2019 11:10 Results for EXAM AM EST this procedure are in the results section. RENAL FUNCTION PANEL Routine 06/12/2019 6:54 Results for AM EST this procedure are in the results section. MAGNESIUM LEVEL Routine 06/12/2019 6:54 Results for AM EST this procedure are in the results section. VITAMIN D 25 HYDROXY Routine 06/12/2019 1:25 Results for (LEAL) AM EST this procedure are in the results section. PROLACTIN Routine 06/12/2019 1:25 Results for AM EST this procedure are in the results section. BASIC METABOLIC Routine 06/12/2019 1:25 Results for PANEL AM EST this procedure are in the results section. URINE MICROSCOPIC Routine 06/11/2019 9:16 Results for WITH REFLEX CULTURE PM EST this procedure are in the results section. URINALYSIS (LAB) Routine 06/11/2019 9:16 Results for WITH REFLEX CULTURE PM EST this procedure are in the results section. SODIUM, URINE Routine 06/11/2019 9:16 Results for PM EST this procedure are in the results section. POTASSIUM, URINE Routine 06/11/2019 9:16 Results for PM EST this procedure are in the results section. ELECTROLYTES, URINE Routine 06/11/2019 9:16 Results for PM EST this procedure are in the results section. CREATININE, URINE Routine 06/11/2019 9:16 Results for PM EST this procedure are in the results section. CHLORIDE, URINE Routine 06/11/2019 9:16 Results for PM EST this procedure are in the results section. EEG Routine 06/11/2019 7:56 PM EST ABG STAT 06/11/2019 7:48 Results for PM EST this procedure are in the results section. XR CHEST 1 VIEW STAT 06/11/2019 7:40 Results for PM EST this procedure are in the results section. CT ABDOMEN PELVIS STAT 06/11/2019 7:00 Results for WITHOUT IV CONTRAST PM EST this procedure are in the results section. LACTIC ACID (LAB) Routine 06/11/2019 6:38 Results for PM EST this procedure are in the results section. CK MB FRACTION Routine 06/11/2019 6:36 Results for PM EST this procedure are in the results section. RENAL FAILURE PANEL STAT 06/11/2019 6:36 Results for PM EST this procedure are in the results section. MAGNESIUM LEVEL STAT 06/11/2019 6:36 Results for PM EST this procedure are in the results section. LIVER FUNCTION STAT 06/11/2019 6:36 Results for PROFILE PM EST this procedure are in the results section. INTACT PTH Routine 06/11/2019 6:36 Results for PM EST this procedure are in the results section. CBC NO DIFFERENTIAL STAT 06/11/2019 6:36 Results for PM EST this procedure are in the results section. IN PT/ED 12 LEAD EKG STAT 06/11/2019 6:28 Paroxysmal atrial Results for PM EST fibrillation (HCC) this procedure are in the results section. MISC SCANNED 06/11/2019 12:00 DOCUMENT PM EST CARDIOLOGY TEST 06/11/2019 12:00 RESULT PM EST documented in this encounter Results GLUCOSE (POCT) (06/22/2019 12:29 PM EST) Glucose POCT 297 (H) 70 - 99 mg/dl POINT OF CARE Result Comment: TESTING Performed at: [facility] POCT Vivek Minor MD, Laboratory Utility Lineman [address] [place] [address] Specimen Performing Organization Address [facility] Phone Number POINT OF CARE TESTING GLUCOSE (POCT) (06/22/2019 8:19 AM EST) Glucose POCT 134 (H) 70 - 99 mg/dl POINT OF CARE Result Comment: TESTING Performed at: [facility] POCT Vivek Minor MD, Laboratory Utility Lineman [address] [place] [address] Specimen Performing Organization Address [facility] Phone Number POINT OF CARE TESTING MAGNESIUM LEVEL (06/22/2019 5:25 AM EST) Magnesium 1.9 1.6 - 2.3 MG/DL [facility] Specimen Blood - Blood specimen (specimen) Performing Organization Address [facility] Phone Number [facility] [address] [place] [address] [phone] COMPREHENSIVE METABOLIC PANEL W/REFLEX MAGNESIUM (06/22/2019 5:25 AM EST) Sodium 137 134 - 145 mmol/L [facility] Potassium 3.5Comment: 3.5 - 5.1 mmol/L [facility] hemolyzed. LABORATORY Results may be affected. Chloride 101 98 - 107 mmol/L [facility] CO2 27 22 - 30 mmol/L [facility] Calcium 6.8 (L) 8.3 - 10.1 mg/dl [facility] Albumin 2.8 (L) 3.5 - 5.0 g/dl [facility] BUN 100 (H)Comment: 9 - 20 mg/dl [facility] hemolyzed. LABORATORY Results may be affected. Creatinine 6.1 (H) 0.8 - 1.5 mg/dl [facility] Glucose 121 (H) 70 - 99 mg/dl [facility] Total Protein 5.4 (L) 6.3 - 8.2 g/dl [facility] Total Bilirubin 0.7 0.0 - 1.1 MG/DL [facility] AST 50Comment: 17 - 59 U/L [facility] hemolyzed. LABORATORY Results may be affected. ALT 56Comment: 21 - 72 U/L [facility] hemolyzed. LABORATORY Results may be affected. Alkaline 42Comment: 40 - 150 U/L [facility] Phosphatase [facility] hemolyzed. LABORATORY Results may be affected. eGFR 11 See Interpretation [facility] Comment: Below ml/min/1.73ml GROUP Estimated GFR Interpretation: Sq LABORATORY Above 60ml/min/1.73m2 = Normal Renal Function 30-59 ml/min/1.73m2 = Stage 3 Chronic Kidney Disease 15-29 ml/min/1.73m2 = Stage 4 Chronic Kidney Disease Less than 15 ml/min/1.73m2 = Stage 5 Chronic Kidney Disease The GFR value is calculated using the Modification of Diet in Renal Disease ( MDRD) Study Equation which can be found at: https://www.kidney.org/content/cgql-qwyet-elrclyxo BUN/Creatinine 16 6 - 22 [facility] Ratio [facility] Anion Gap 9 3 - 11 mmol/L [facility] A/G Ratio 1.1 0.8 - 2.0 ratio [facility] Specimen Blood - Blood specimen (specimen) Performing Organization Address [facility] Phone Number [facility] [address] [place] [address] [phone] CBC NO DIFFERENTIAL (06/22/2019 5:25 AM EST) WBC Count 8.86Comment: 4.23 - 9.07 [facility] was K/uL [facility] changed 06/24/2018. Please note updated reference range and units. RBC Count 3.28 (L) 4.30 - 5.89 [facility] M/UL [facility] Hemoglobin 9.6 (L) 13.7 - 17.5 [facility] g/dL [facility] Hematocrit 29.6 (L) 40.1 - 51.0 % [facility] MCV 90.2 79.0 - 92.2 [facility] FL [facility] MCH 29.3 25.7 - 32.2 [facility] PG [facility] MCHC 32.4 32.3 - 36.5 [facility] g/dL [facility] Platelet Count 164 163 - 337 [facility] K/uL [facility] MPV 12.9 (H) 9.4 - 12.4 FL [facility] RDW 16.2 (H) 11.6 - 14.4 % [facility] Specimen Blood - Blood specimen (specimen) Performing Organization Address [facility] Phone Number [facility] [address] [place] [address] GLUCOSE (POCT) (06/21/2019 9:04 PM EST) Glucose POCT 168 (H) 70 - 99 mg/dl POINT OF CARE Result Comment: TESTING Performed at: [facility] POCT Vivek Minor MD, Laboratory Utility Lineman [address] [place] [address] Specimen Performing Organization Address [facility] Phone Number POINT OF CARE TESTING GLUCOSE (POCT) (06/21/2019 4:57 PM EST) Glucose POCT 305 (H) 70 - 99 mg/dl POINT OF CARE Result Comment: TESTING Performed at: [facility] POCT Vivek Minor MD, Laboratory Utility Lineman [address] [place] [address] Specimen Performing Organization Address [facility] Phone Number POINT OF CARE TESTING GLUCOSE (POCT) (06/21/2019 3:27 PM EST) Glucose POCT 157 (H) 70 - 99 mg/dl POINT OF CARE Result Comment: TESTING Performed at: [facility] POCT Vivek Minor MD, Laboratory Utility Lineman [address] [place] [address] Specimen Performing Organization Address [facility] Phone Number POINT OF CARE TESTING TISSUE EXAM (06/21/2019 1:36 PM EST) Case Report Surgical Pathology Case: [id number] [facility] Authorizing Provider: Primitivo Agrawal MD Collected: 06/21/2019 01:36 PM [facility] Ordering Location: [facility] Received: 06/21/2019 03:17 PM Pathologist: Neo Quezada, DO Specimens: 1) - GASTRIC BIOPSY-ANTRUM, Mild Gastritis R/O H pylori 2) - Ascending colon, polyp 3) - transverse colon, polyp Pre-Op Diagnosis No Dx found. [facility] Post-Op Diagnosis No Dx found. [facility] FINAL DIAGNOSIS 1. Stomach, biopsy: [facility] Electronically signed -Antral and fundic type gastric mucosa with reactive gastropathy. [facility] by Neo Quezada, -No Helicobacter organisms on H/E stain. DO on 06/23/2019 at -No dysplasia or malignancy. 11:47 AM 2. Colon, ascending, biopsy: -Tubular adenoma. 3. Colon, transverse, biopsy: -Hyperplastic polyp. Microscopic Microscopic [facility] Description examination is [facility] performed. Gross Description 1. The specimen is received in formalin labeled, with the patient's name, MRN, and Mild Gastritis R/O H pylori gastric biopsy-antrum and consists of multiple dorsey irregular soft tissue fragments with agg [facility] regate dimensions of 0.8 x 0.5 x 0.2 cm. The specimen is submitted in toto in cassette 1A.. [facility] 2. The specimen is received in formalin labeled, with the patient's name, MRN , and ascending colon polyp and consists of a 0.2 x 0.2 x 0.1 cm dorsey polypoid soft tissue piece. The specimen is submitted in toto in cassette 2A.. 3. The specimen is received in formalin labeled, with the patient's name, MRN , and transverse colon polyp and consists of a 0.3 x 0.2 x 0.1 cm dorsey polypoid soft tissue piece. The specimen is submitted in toto in cassette 3A. NJL. Gross description is reviewed before signout by Neo Quezada DO Disclaimer Gross description is performed at the [facility], [address] [place] [address]. [facility] All technical components are performed at the [facility], [address] [place] [address]. Specimen Tissue - Gastric biopsy sample (specimen) Tissue specimen (specimen) - Ascending colon, polyp Tissue specimen (specimen) - transverse colon, polyp Performing Organization Address City/[facility] Phone Number [facility] [address] [facility] [address] [place] [address] GLUCOSE (POCT) (06/21/2019 1:00 PM EST) Glucose POCT 142 (H) 70 - 99 mg/dl POINT OF CARE Result Comment: TESTING Performed at: [facility] POCT Vivek Minor MD, Laboratory Utility Lineman [address] [facility] [address] [place] [address] Specimen Performing Organization Address City/[facility] Phone Number POINT OF CARE TESTING COLONOSCOPY REPORT (06/21/2019 12:45 PM EST) GI Procedure [facility] __ Patient Name: Kamar Segura Procedure Date: 06/21/2019 12:45 PM Date of : 1940 Admit Type: Inpatient Age: 79 Room: OR Gender: Male Note Status: Finalized Attending MD: PRIMITIVO AGRAWAL MD Instrument Name: [id number] __ Procedure: Colonoscopy Indications: Heme positive stool, Iron deficiency anemia Providers: PRIMITIVO AGRAWAL MD, MER WHITMAN MD (Fellow), Yvette Brink (Nurse), Beverly Rodriguez RN (Nurse) Referring MD: WILLY POLK (Referring MD), TEDDY VENTURA MD (Referring MD) Medicines: General Anesthesia Complications: No immediate complications. __ Procedure: The patient's current medications and allergies were reviewed and recorded in the nurses notes. The patient was made aware of the risk of the procedure which can include: bleeding, infection, perforation, an adverse reaction to sedation, and a risk of missed lesions, among others. The patient appeared to understand. An opportunity for questions was provided, and an informed consent form was signed. The scope was passed under direct vision. Throughout the procedure, the patient's blood pressure, pulse EKG, and oxygen saturations were monitored continuously. The Colonoscope was introduced through the anus and advanced to the terminal ileum, with identification of the appendiceal orifice and IC valve. The patient tolerated the procedure well. The quality of the bowel preparation was good. The colonoscopy was performed with moderate difficulty due to a redundant colon. Successful completion of the procedure was aided by increasing the dose of sedation medication and straightening and shortening the scope to obtain bowel loop reduction. Findings: The terminal ileum appeared normal. Non-bleeding internal hemorrhoids were found during retroflexion. The hemorrhoids were Grade I (internal hemorrhoids that do not prolapse). Scattered small and large-mouthed diverticula were found in the sigmoid colon. Two sessile polyps were found in the transverse colon and ascending colon. The polyps were 4 to 6 mm in size. These polyps were removed with a cold snare. Resection and retrieval were complete. A single medium-sized localized angioectasia without bleeding was found in the cecum. Coagulation for hemostasis using argon plasma at 1 liter/minute and 20 liriano was successful. To prevent bleeding post-intervention, one hemostatic clip was successfully placed. There was no bleeding at the end of the procedure. The exam was otherwise without abnormality. Impression: - The examined portion of the ileum was normal. - Non-bleeding internal hemorrhoids. - Diverticulosis in the sigmoid colon. - Two 4 to 6 mm polyps in the transverse colon and in the ascending colon, removed with a cold snare. Resected and retrieved. - A single non-bleeding colonic angioectasia. Treated with argon plasma coagulation (APC). Clip was placed. - The examination was [...] - No MRI Studies for 30 days. - Return to referring physician as previously scheduled. - Return patient to hospital [facility] for ongoing care. Procedure Code(s): --- Professional --- 02450, 59,GC, Colonoscopy, flexible; with control of bleeding, any method 75887, GC, Colonoscopy, flexible; with removal of tumor(s), polyp(s), or other lesion(s) by snare technique Diagnosis Code(s): --- Professional --- K64.0, First degree hemorrhoids D12.3, Benign neoplasm of transverse colon (hepatic flexure or splenic flexure) D12.2, Benign neoplasm of ascending colon K55.20, Angiodysplasia of colon without hemorrhage R19.5, Other fecal abnormalities D50.9, Iron deficiency anemia, unspecified K57.30, Diverticulosis of large intestine without perforation or abscess without bleeding CPT copyright 2017 [employer]. All rights reserved. The codes documented in this report are preliminary and upon shirt finisher review may be revised to meet current compliance requirements. Attending Participation: I was present and participated during the entire procedure, including non-johnson portions. PRIMITIVO AGRAWAL MD 06/21/2019 2:38:35 PM This report has been signed electronically. MER WHITMAN MD 06/21/2019 2:38:02 PM Number of Addenda: 0 Note Initiated On: 06/21/2019 12:45 PM CC Letter to: GARFIELD BOLDEN MD (CC) Estimated Blood Loss: Estimated blood loss was minimal. Specimen Performing Organization Address City/State/Zipcode Phone Number [facility] UPPER GI ENDOSCOPY REPORT (06/21/2019 12:42 PM EST) Upper GI endoscopy [facility] __ Patient Name: Kamar Segura Procedure Date: 06/21/2019 12:42 PM Date of : 1940 Admit Type: Inpatient Age: 79 Room: 16 Gender: Male Note Status: Finalized Attending MD: PRIMITIVO AGRAWAL MD Instrument Name: [id number] __ Procedure: Upper GI endoscopy Indications: Iron deficiency anemia, Heme positive stool Providers: PRIMITIVO AGRAWAL MD, Yvette Brink (Nurse), Beverly Rodriguez RN (Nurse) Referring MD: WILLY POLK (Referring MD), TEDDY VENTURA MD (Referring MD) Medicines: Monitored Anesthesia Care Complications: No immediate complications. __ Procedure: The patient's current medications and allergies were reviewed and recorded in the nurses notes. The patient was made aware of the risk of the procedure which can include: bleeding, infection, perforation, an adverse reaction to sedation, and a risk of missed lesions, among others. The patient appeared to understand. An opportunity for questions was provided, and an informed consent form was signed. The scope was passed under direct vision. Throughout the procedure, the patient's blood pressure, pulse EKG, and oxygen saturations were monitored continuously. The Endoscope was introduced through the mouth, and advanced to the second part of duodenum. The Z-line was located at: The upper GI endoscopy was accomplished without difficulty. The patient tolerated the procedure well. Findings: The examined duodenum was normal. Patchy mild inflammation characterized by congestion (edema), erythema, friability and granularity was found in the gastric body and in the gastric antrum. Biopsies were taken with a cold forceps for histology. The cardia and gastric fundus were normal on retroflexion. The Z-line was regular and was found 40 cm from the incisors. Impression: - Normal examined duodenum. - Gastritis. Biopsied. - Z-line regular, 40 cm from the incisors. Recommendation: - Return patient to hospital [facility] for ongoing care. - Advance diet as tolerated. - Continue present medications. - Await pathology results. - No aspirin, ibuprofen, naproxen, or other non-steroidal anti-inflammatory drugs for 2 weeks. Procedure Code(s): --- Professional --- 04073, Esophagogastroduodenoscopy, flexible, transoral; with biopsy, single or multiple Diagnosis Code(s): --- Professional --- K29.70, Gastritis, unspecified, without bleeding D50.9, Iron deficiency anemia, unspecified R19.5, Other fecal abnormalities CPT copyright 2017 [employer]. All rights reserved. The codes documented in this report are preliminary and upon shirt finisher review may be revised to meet current compliance requirements. PRIMITIVO AGRAWAL MD 06/21/2019 1:40:46 PM This report has been signed electronically. Number of Addenda: 0 Note Initiated On: 06/21/2019 12:42 PM CC Letter to: GARFIELD BOLDEN MD (CC) Estimated Blood Loss: Estimated blood loss was minimal. Specimen Performing Organization Address City/[facility] Phone Number [facility] XR [facility] IMAGESTREAM (06/21/2019 12:38 PM EST) Specimen Narrative Performed At [facility] OR Imagestream. If no PACS link is available, no images were [facility] POCT taken and saved to PACS. Performing Organization Address [facility] Phone Number [facility] POCT [address] [facility] [place] [address] MAGNESIUM LEVEL (06/21/2019 5:40 AM EST) Magnesium 1.5 (L) 1.6 - 2.3 MG/DL [facility] Specimen Blood - Blood specimen (specimen) Performing Organization Address [facility] Phone Number [facility] [address] [place] [address] COMPREHENSIVE METABOLIC PANEL W/REFLEX MAGNESIUM (06/21/2019 5:40 AM EST) Sodium 139 134 - 145 mmol/L [facility] Potassium 3.7 3.5 - 5.1 mmol/L [facility] Chloride 99 98 - 107 mmol/L [facility] CO2 27 22 - 30 mmol/L [facility] Calcium 7.4 (L) 8.3 - 10.1 mg/dl [facility] Albumin 3.2 (L) 3.5 - 5.0 g/dl [facility] BUN 108 (H) 9 - 20 mg/dl [facility] Creatinine 6.3 (H) 0.8 - 1.5 mg/dl [facility] Glucose 93 70 - 99 mg/dl [facility] Total Protein 5.9 (L) 6.3 - 8.2 g/dl [facility] Total Bilirubin 0.7 0.0 - 1.1 MG/DL [facility] AST 35 17 - 59 U/L [facility] ALT 61 21 - 72 U/L [facility] Alkaline 54 40 - 150 U/L [facility] Phosphatase [facility] eGFR 10 See Interpretation [facility] Comment: Below ml/min/1.73ml GROUP Estimated GFR Interpretation: Sq LABORATORY Above 60ml/min/1.73m2 = Normal Renal Function 30-59 ml/min/1.73m2 = Stage 3 Chronic Kidney Disease 15-29 ml/min/1.73m2 = Stage 4 Chronic Kidney Disease Less than 15 ml/min/1.73m2 = Stage 5 Chronic Kidney Disease The GFR value is calculated using the Modification of Diet in Renal Disease ( MDRD) Study Equation which can be found at: https://www.kidney.org/content/jguj-yetdm-jowfrgru BUN/Creatinine 17 6 - 22 RATIO [facility] Ratio [facility] Anion Gap 13 (H) 3 - 11 mmol/L [facility] A/G Ratio 1.2 0.8 - 2.0 ratio [facility] Specimen Blood - Blood specimen (specimen) Performing Organization Address City/State/Zipcode Phone Number [facility] [address] [facility] [place] [address] [phone] CBC NO DIFFERENTIAL (06/21/2019 5:40 AM EST) WBC Count 12.15 (H)Comment: 4.23 - 9.07 [facility] Methodology was K/uL GROUP [facility] changed 06/24/2018. Please note updated reference range and units. RBC Count 3.29 (L) 4.30 - 5.89 [facility] M/UL [facility] Hemoglobin 9.4 (L) 13.7 - 17.5 [facility] g/dL [facility] Hematocrit 30.5 (L) 40.1 - 51.0 % [facility] MCV 92.7 (H) 79.0 - 92.2 [facility] FL [facility] MCH 28.6 25.7 - 32.2 [facility] PG [facility] MCHC 30.8 (L) 32.3 - 36.5 [facility] g/dL [facility] Platelet Count 220 163 - 337 [facility] K/uL [facility] MPV 11.3 9.4 - 12.4 FL [facility] RDW 16.0 (H) 11.6 - 14.4 % [facility] Specimen Blood - Blood specimen (specimen) Performing Organization Address [facility] Phone Number [facility] [address] [place] [place] [address] GLUCOSE (POCT) (06/20/2019 10:04 PM EST) Glucose POCT 160 (H) 70 - 99 mg/dl POINT OF CARE Result Comment: TESTING Performed at: [facility] POCT Vivek Minor MD, Laboratory Utility Lineman [address] [place] [place] [address] Specimen Performing Organization Address [facility] Phone Number POINT OF CARE TESTING GLUCOSE (POCT) (06/20/2019 4:32 PM EST) Glucose POCT 191 (H) 70 - 99 mg/dl POINT OF CARE Result Comment: TESTING Performed at: [facility] POCT Vivek Minor MD, Laboratory Utility Lineman [address] [place] [place] [address] Specimen Performing Organization Address [facility] Phone Number POINT OF CARE TESTING GLUCOSE (POCT) (06/20/2019 12:01 PM EST) Glucose POCT 151 (H) 70 - 99 mg/dl POINT OF CARE Result Comment: TESTING Performed at: [facility] POCT Vivek Minor MD, Laboratory Utility Lineman [address] [place] [address] Specimen Performing Organization Address [facility] Phone Number POINT OF CARE TESTING MAGNESIUM LEVEL (06/20/2019 5:04 AM EST) Magnesium 1.4 (L) 1.6 - 2.3 MG/DL [facility] Specimen Blood - Blood specimen (specimen) Performing Organization Address [facility] Phone Number [facility] [address] [place] [place] [address] COMPREHENSIVE METABOLIC PANEL W/REFLEX MAGNESIUM (06/20/2019 5:04 AM EST) Sodium 138 134 - 145 mmol/L [facility] Potassium 3.5 3.5 - 5.1 mmol/L [facility] Chloride 102 98 - 107 mmol/L [facility] CO2 26 22 - 30 mmol/L [facility] Calcium 7.1 (L) 8.3 - 10.1 mg/dl [facility] Albumin 2.9 (L) 3.5 - 5.0 g/dl [facility] BUN 113 (H) 9 - 20 mg/dl [facility] Creatinine 6.4 (H) 0.8 - 1.5 mg/dl [facility] Glucose 136 (H) 70 - 99 mg/dl [facility] Total Protein 5.4 (L) 6.3 - 8.2 g/dl [facility] Total Bilirubin 0.5 0.0 - 1.1 MG/DL [facility] AST 27 17 - 59 U/L [facility] ALT 55 21 - 72 U/L [facility] Alkaline 46 40 - 150 U/L [facility] eGFR 10 See Interpretation [facility] Comment: Below ml/min/1.73ml GROUP Estimated GFR Interpretation: Sq LABORATORY Above 60ml/min/1.73m2 = Normal Renal Function 30-59 ml/min/1.73m2 = Stage 3 Chronic Kidney Disease 15-29 ml/min/1.73m2 = Stage 4 Chronic Kidney Disease Less than 15 ml/min/1.73m2 = Stage 5 Chronic Kidney Disease The GFR value is calculated using the Modification of Diet in Renal Disease ( MDRD) Study Equation which can be found at: https://www.kidney.org/content/aewi-qwycw-thumbwxf BUN/Creatinine 18 6 - 22 [facility] Anion Gap 10 3 - 11 mmol/L [facility] A/G Ratio 1.2 0.8 - 2.0 ratio [facility] Specimen Blood - Blood specimen (specimen) Performing Organization Address City/State/Zipcode Phone Number [facility] [address] [facility] [place] [address] CBC NO DIFFERENTIAL (06/20/2019 5:04 AM EST) WBC Count 16.32 (H)Comment: 4.23 - 9.07 [facility] Methodology was K/uL [facility] changed 06/24/2018. Please note updated reference range and units. RBC Count 2.78 (L) 4.30 - 5.89 [facility] M/UL [facility] Hemoglobin 8.2 (L) 13.7 - 17.5 [facility] g/dL [facility] Hematocrit 24.8 (L) 40.1 - 51.0 % [facility] MCV 89.2 79.0 - 92.2 [facility] FL [facility] MCH 29.5 25.7 - 32.2 [facility] PG [facility] MCHC 33.1 32.3 - 36.5 [facility] g/dL [facility] Platelet Count 281 163 - 337 [facility] K/uL [facility] MPV 11.5 9.4 - 12.4 FL [facility] RDW 15.9 (H) 11.6 - 14.4 % [facility] Specimen Blood - Blood specimen (specimen) Performing Organization Address [facility] Phone Number [facility] [address] [place] [place] [address] GLUCOSE (POCT) (06/19/2019 8:32 PM EST) Glucose POCT 216 (H) 70 - 99 mg/dl POINT OF CARE Result Comment: TESTING Performed at: [facility] POCT Vivek Minor MD, Laboratory Utility Lineman [address] [place] [address] Specimen Performing Organization Address [facility] Phone Number POINT OF CARE TESTING GLUCOSE (POCT) (06/19/2019 5:18 PM EST) Glucose POCT 238 (H) 70 - 99 mg/dl POINT OF CARE Result Comment: TESTING Performed at: [facility] POCT Vivek Minor MD, Laboratory Utility Lineman 1 [place] [address] Specimen Performing Organization Address [facility] Phone Number POINT OF CARE TESTING GLUCOSE REFLEX (06/19/2019 4:38 PM EST) Glucose 216 (H) 70 - 99 mg/dl [facility] Specimen Blood - Blood specimen (specimen) Performing Organization Address [facility] Phone Number [facility] [address] [place] [address] [phone] GLUCOSE (POCT) (06/19/2019 4:18 PM EST) Glucose POCT 555 (HH) 70 - 99 mg/dl POINT OF CARE Result Comment: TESTING Performed at: [facility] POCT Vivek Minor MD, Laboratory Utility Lineman [address] [place] [address] Specimen Performing Organization Address [facility] Phone Number POINT OF CARE TESTING GLUCOSE (POCT) (06/19/2019 11:34 AM EST) Glucose POCT 422 (H) 70 - 99 mg/dl POINT OF CARE Result Comment: TESTING Performed at: [facility] POCT Vivek Minor MD, Laboratory Utility Lineman [address] [place] [address] Specimen Performing Organization Address [facility] Phone Number POINT OF CARE TESTING MAGNESIUM LEVEL (06/19/2019 4:57 AM EST) Magnesium 1.5 (L) 1.6 - 2.3 MG/DL [facility] Specimen Blood - Blood specimen (specimen) Performing Organization Address [facility] Phone Number [facility] [address] [place] [place] [address] [phone] COMPREHENSIVE METABOLIC PANEL W/REFLEX MAGNESIUM (06/19/2019 4:57 AM EST) Sodium 136 134 - 145 mmol/L [facility] Potassium 4.1 3.5 - 5.1 mmol/L [facility] Chloride 104 98 - 107 mmol/L [facility] CO2 21 (L) 22 - 30 mmol/L [facility] Calcium 7.0 (L) 8.3 - 10.1 mg/dl [facility] Albumin 3.3 (L) 3.5 - 5.0 g/dl [facility] BUN 113 (H) 9 - 20 mg/dl [facility] Creatinine 6.5 (H) 0.8 - 1.5 mg/dl [facility] Glucose 331 (H) 70 - 99 mg/dl [facility] Total Protein 6.0 (L) 6.3 - 8.2 g/dl [facility] Total Bilirubin 0.4 0.0 - 1.1 MG/DL [facility] AST 39 17 - 59 U/L [facility] ALT 53 21 - 72 U/L [facility] Alkaline 56 40 - 150 U/L [facility] Phosphatase [facility] eGFR 10 See Interpretation [facility] Comment: Below ml/min/1.73ml GROUP Estimated GFR Interpretation: Sq LABORATORY Above 60ml/min/1.73m2 = Normal Renal Function 30-59 ml/min/1.73m2 = Stage 3 Chronic Kidney Disease 15-29 ml/min/1.73m2 = Stage 4 Chronic Kidney Disease Less than 15 ml/min/1.73m2 = Stage 5 Chronic Kidney Disease The GFR value is calculated using the Modification of Diet in Renal Disease ( MDRD) Study Equation which can be found at: https://www.kidney.org/content/syul-fkfts-gzxwgdcn BUN/Creatinine 17 6 - 22 RATIO [facility] Ratio [facility] Anion Gap 11 3 - 11 mmol/L [facility] A/G Ratio 1.2 0.8 - 2.0 ratio [facility] Specimen Blood - Blood specimen (specimen) Performing Organization Address City/State/Zipcode Phone Number [facility] [address] [facility] [place] [address] CBC NO DIFFERENTIAL (06/19/2019 4:57 AM EST) WBC Count 12.60 (H)Comment: 4.23 - 9.07 [facility] Methodology was K/uL [facility] changed 06/24/2018. Please note updated reference range and units. RBC Count 2.94 (L) 4.30 - 5.89 [facility] M/UL [facility] Hemoglobin 8.7 (L) 13.7 - 17.5 [facility] g/dL [facility] Hematocrit 26.5 (L) 40.1 - 51.0 % [facility] MCV 90.1 79.0 - 92.2 [facility] FL [facility] MCH 29.6 25.7 - 32.2 [facility] PG [facility] MCHC 32.8 32.3 - 36.5 [facility] g/dL [facility] Platelet Count 285 163 - 337 [facility] K/uL [facility] MPV 11.9 9.4 - 12.4 FL [facility] RDW 15.7 (H) 11.6 - 14.4 % [facility] Specimen Blood - Blood specimen (specimen) Performing Organization Address [facility] Phone Number [facility] [address] [place] [place] [address] TRANSFUSE RED CELLS (06/18/2019 1:03 PM EST)TRANSFUSE RED CELLS (06/18/2019 1: 03 PM EST)TYPE AND SCREEN (06/18/2019 7:18 AM EST) ABO/RH Type B NEG [facility] Antibody Screen Interp NEG [facility] Specimen Blood Performing Organization Address [facility] Phone Number [facility] [place] [address] PREPARE RED CELLS LEUKOREDUCED (06/18/2019 5:18 AM EST) RED CELLS RCL4 RED CELLS LR [facility] [id number] p.Transfus compatible 06/18/19 08:58 [facility] UTYPE B NEG [facility] UNIT BLOOD RH NEG [facility] UPROD RCL4 [facility] UNIT# [id number] [facility] DISPSTATUS transfused [facility] UNIT NUMBER =[id number] [facility] PRODUCT CODE [id number] [facility] UNIT BLOOD ABO 1700 [facility] EXPIRATION DATE [id number] [facility] Specimen Performing Organization Address [facility] Phone Number [facility] [place] [address] PATIENT TYPE CONFIRMATION (06/18/2019 4:27 AM EST) Specimen Blood - Blood specimen (specimen) Performing Organization Address [facility] Phone Number [facility] [place] [address] MAGNESIUM LEVEL (06/18/2019 4:27 AM EST) Magnesium 1.5 (L) 1.6 - 2.3 MG/DL [facility] Specimen Blood - Blood specimen (specimen) Performing Organization Address [facility] Phone Number [facility] [address] [place] [address] COMPREHENSIVE METABOLIC PANEL W/REFLEX MAGNESIUM (06/18/2019 4:27 AM EST) Sodium 138 134 - 145 mmol/L [facility] Potassium 4.1 3.5 - 5.1 mmol/L [facility] Chloride 105 98 - 107 mmol/L [facility] CO2 23 22 - 30 mmol/L [facility] Calcium 6.9 (L) 8.3 - 10.1 mg/dl [facility] Albumin 2.9 (L) 3.5 - 5.0 g/dl [facility] BUN 108 (H) 9 - 20 mg/dl [facility] Creatinine 6.2 (H) 0.8 - 1.5 mg/dl [facility] Glucose 225 (H) 70 - 99 mg/dl [facility] Total Protein 5.4 (L) 6.3 - 8.2 g/dl [facility] Total Bilirubin 0.3 0.0 - 1.1 MG/DL [facility] AST 27 17 - 59 U/L [facility] ALT 53 21 - 72 U/L [facility] Alkaline 51 40 - 150 U/L [facility] Phosphatase [facility] eGFR 11 See Interpretation [facility] Comment: Below ml/min/1.73ml GROUP Estimated GFR Interpretation: Sq LABORATORY Above 60ml/min/1.73m2 = Normal Renal Function 30-59 ml/min/1.73m2 = Stage 3 Chronic Kidney Disease 15-29 ml/min/1.73m2 = Stage 4 Chronic Kidney Disease Less than 15 ml/min/1.73m2 = Stage 5 Chronic Kidney Disease The GFR value is calculated using the Modification of Diet in Renal Disease ( MDRD) Study Equation which can be found at: https://www.kidney.org/content/xlwa-wmazm-uiorvspa BUN/Creatinine 17 6 - 22 [facility] Anion Gap 10 3 - 11 mmol/L [facility] A/G Ratio 1.2 0.8 - 2.0 ratio [facility] Specimen Blood - Blood specimen (specimen) Performing Organization Address City/State/Zipcode Phone Number [facility] [address] [place] [address] RENAL FUNCTION PANEL (06/18/2019 4:27 AM EST) Sodium 138 134 - 145 mmol/L [facility] Potassium 4.1 3.5 - 5.1 mmol/L [facility] Chloride 105 98 - 107 mmol/L [facility] CO2 23 22 - 30 mmol/L [facility] Glucose 225 (H) 70 - 99 mg/dl [facility] Creatinine 6.2 (H) 0.8 - 1.5 mg/dl [facility] BUN 108 (H) 9 - 20 mg/dl [facility] Calcium 6.9 (L) 8.3 - 10.1 mg/dl [facility] Albumin 2.9 (L) 3.5 - 5.0 g/dl [facility] Phosphorus 3.7 2.5 - 4.5 MG/DL [facility] eGFR 11 See Interpretation [facility] Comment: Below ml/min/1.73ml GROUP Estimated GFR Interpretation: LABORATORY Above 60ml/min/1.73m2 = Normal Renal Function 30-59 ml/min/1.73m2 = Stage 3 Chronic Kidney Disease 15-29 ml/min/1.73m2 = Stage 4 Chronic Kidney Disease Less than 15 ml/min/1.73m2 = Stage 5 Chronic Kidney Disease The GFR value is calculated using the Modification of Diet in Renal Disease ( MDRD) Study Equation which can be found at: https://www.kidney.org/content/dyoj-arank-nqnjxfzg BUN/Creatinine 17 6 - 22 [facility] Anion Gap 10 3 - 11 mmol/L [facility] Specimen Blood - Blood specimen (specimen) Performing Organization Address City/State/Zipcode Phone Number [facility] [address] [place] [address] CBC WITH DIFFERENTIAL (06/18/2019 4:27 AM EST) WBC Count 12.06 (H) 4.23 - 9.07 K/uL [facility] RBC Count 2.34 (L) 4.30 - 5.89 M/UL [facility] Hemoglobin 6.9 (LL) 13.7 - 17.5 g/dL [facility] Hematocrit 21.3 (LL) 40.1 - 51.0 % [facility] MCV 91.0 79.0 - 92.2 FL [facility] MCH 29.5 25.7 - 32.2 PG [facility] MCHC 32.4 32.3 - 36.5 g/dL [facility] Platelet Count 218 163 - 337 K/uL [facility] MPV 11.2 9.4 - 12.4 FL [facility] RDW 16.1 (H) 11.6 - 14.4 % [facility] Neutrophil % 83.7 (H) 34.0 - 67.9 % [facility] Lymphocyte % 4.4 (L) 21.8 - 53.1 % [facility] Monocyte % 8.2 5.3 - 12.2 % [facility] Eosinophil % 0.0 (L) 0.8 - 7.0 % [facility] Basophil % 0.1 (L) 0.2 - 1.2 % [facility] nRBC % 1.6 (H) 0.0 - 0.2 % [facility] Neutrophil # 10.10 (H) 1.78 - 5.38 K/UL [facility] Lymphocyte # 0.53 (L) 1.32 - 3.57 K/UL [facility] Monocyte # 0.99 (H) 0.30 - 0.82 K/UL [facility] Eosinophil # 0.00 (L) 0.04 - 0.54 K/UL [facility] Basophil # 0.01 0.01 - 0.08 K/UL [facility] Immature Gran % 3.6 (H) 0.0 - 0.4 % [facility] Immature Gran # 0.43 (H) 0.00 - 0.03 K/uL [facility] NRBC # 0.19 (H) 0.00 - 0.12 K/uL [facility] Specimen Blood - Blood specimen (specimen) Performing Organization Address City/State/[facility] Phone Number [facility] [address] [place] [place] [address] OCCULT BLOOD STOOL (LAB) (06/17/2019 12:45 PM EST) Stool Occult Blood Positive (A) Negative [facility] Specimen Stool - Stool specimen (specimen) Performing Organization Address City/[facility] Phone Number [facility] [address] [place] [place] [address] [phone] RAINBOW DRAW LAVENDER TOP (06/17/2019 5:04 AM EST) Specimen Blood - Blood specimen (specimen) Performing Organization Address City/[facility] Phone Number [facility] [address] [place] [place] [address] RENAL FUNCTION PANEL (06/17/2019 5:04 AM EST) Sodium 139 134 - 145 mmol/L [facility] Potassium 3.9 3.5 - 5.1 mmol/L [facility] Chloride 109 (H) 98 - 107 mmol/L [facility] CO2 20 (L) 22 - 30 mmol/L [facility] Glucose 284 (H) 70 - 99 mg/dl [facility] Creatinine 6.6 (H) 0.8 - 1.5 mg/dl [facility] BUN 105 (H) 9 - 20 mg/dl [facility] Calcium 7.1 (L) 8.3 - 10.1 mg/dl [facility] Albumin 3.2 (L) 3.5 - 5.0 g/dl [facility] Phosphorus 3.6 2.5 - 4.5 MG/DL [facility] eGFR 10 See Interpretation [facility] Comment: Below ml/min/1.73ml GROUP Estimated GFR Interpretation: Sq LABORATORY Above 60ml/min/1.73m2 = Normal Renal Function 30-59 ml/min/1.73m2 = Stage 3 Chronic Kidney Disease 15-29 ml/min/1.73m2 = Stage 4 Chronic Kidney Disease Less than 15 ml/min/1.73m2 = Stage 5 Chronic Kidney Disease The GFR value is calculated using the Modification of Diet in Renal Disease ( MDRD) Study Equation which can be found at: https://www.kidney.org/content/paep-rmbon-msgqxsnv BUN/Creatinine 16 6 - 22 [facility]ORATORY Anion Gap 10 3 - 11 mmol/L [facility] Specimen Blood - Blood specimen (specimen) Performing Organization Address City/State/Zipcode Phone Number [facility] [address] [facility] [place] [address] [phone] CBC WITH DIFFERENTIAL (06/16/2019 6:02 AM EST) WBC Count 9.08 (H) 4.23 - 9.07 K/uL [facility] RBC Count 2.63 (L) 4.30 - 5.89 M/UL [facility] Hemoglobin 7.8 (L) 13.7 - 17.5 g/dL [facility] Hematocrit 23.8 (L) 40.1 - 51.0 % [facility] MCV 90.5 79.0 - 92.2 FL [facility] MCH 29.7 25.7 - 32.2 PG [facility] MCHC 32.8 32.3 - 36.5 g/dL [facility] Platelet Count 229 163 - 337 K/uL [facility] MPV 12.1 9.4 - 12.4 FL [facility] RDW 15.9 (H) 11.6 - 14.4 % [facility] Neutrophil % 92.3 (H) 34.0 - 67.9 % [facility] Lymphocyte % 3.5 (L) 21.8 - 53.1 % [facility] Monocyte % 3.1 (L) 5.3 - 12.2 % [facility] Eosinophil % 0.0 (L) 0.8 - 7.0 % [facility] Basophil % 0.0 (L) 0.2 - 1.2 % [facility] nRBC % 0.0 0.0 - 0.2 % [facility] Neutrophil # 8.38 (H) 1.78 - 5.38 K/UL [facility] Lymphocyte # 0.32 (L) 1.32 - 3.57 K/UL [facility] Monocyte # 0.28 (L) 0.30 - 0.82 K/UL [facility] Eosinophil # 0.00 (L) 0.04 - 0.54 K/UL [facility] Basophil # 0.00 (L) 0.01 - 0.08 K/UL [facility] Immature Gran % 1.1 (H) 0.0 - 0.4 % [facility] Immature Gran # 0.10 (H) 0.00 - 0.03 K/uL [facility] NRBC # 0.00 0.00 - 0.12 K/uL [facility] Specimen Blood - Blood specimen (specimen) Performing Organization Address City/State/Zipcode Phone Number [facility] [address] [place] [address] RENAL FUNCTION PANEL (06/16/2019 5:55 AM EST) Sodium 139 134 - 145 mmol/L [facility] Potassium 4.4 3.5 - 5.1 mmol/L [facility] Chloride 107 98 - 107 mmol/L [facility] CO2 19 (L) 22 - 30 mmol/L [facility] Glucose 189 (H) 70 - 99 mg/dl [facility] Creatinine 6.8 (H) 0.8 - 1.5 mg/dl [facility] BUN 95 (H) 9 - 20 mg/dl [facility] Calcium 7.5 (L) 8.3 - 10.1 mg/dl [facility] Albumin 3.6 3.5 - 5.0 g/dl [facility] Phosphorus 4.2 2.5 - 4.5 MG/DL [facility] eGFR 10 See Interpretation [facility] Comment: Below ml/min/1.73ml GROUP Estimated GFR Interpretation: LABORATORY Above 60ml/min/1.73m2 = Normal Renal Function 30-59 ml/min/1.73m2 = Stage 3 Chronic Kidney Disease 15-29 ml/min/1.73m2 = Stage 4 Chronic Kidney Disease Less than 15 ml/min/1.73m2 = Stage 5 Chronic Kidney Disease The GFR value is calculated using the Modification of Diet in Renal Disease ( MDRD) Study Equation which can be found at: https://www.kidney.org/content/rcfm-gitgd-izoqvesx BUN/Creatinine 14 6 - 22 [facility] Ratio [facility] Anion Gap 13 (H) 3 - 11 mmol/L [facility] Specimen Blood - Blood specimen (specimen) Performing Organization Address [facility] Phone Number [facility] [address] [place] [address] CBC NO DIFFERENTIAL (06/15/2019 11:34 AM EST) WBC Count 7.90Comment: 4.23 - 9.07 [facility] Methodology was K/uL [facility] changed 06/24/2018. Please note updated reference range and units. RBC Count 2.59 (L) 4.30 - 5.89 [facility] M/UL [facility] Hemoglobin 7.5 (L) 13.7 - 17.5 [facility] g/dL GROUP [facility] Hematocrit 22.9 (L) 40.1 - 51.0 % [facility] MCV 88.4 79.0 - 92.2 [facility] FL [facility] MCH 29.0 25.7 - 32.2 [facility] PG [facility] MCHC 32.8 32.3 - 36.5 [facility] g/dL [facility] Platelet Count 202 163 - 337 [facility] K/uL [facility] MPV 11.2 9.4 - 12.4 FL [facility] RDW 15.6 (H) 11.6 - 14.4 % [facility] Specimen Blood - Blood specimen (specimen) Performing Organization Address [facility] Phone Number [facility] [address] [place] [address] [phone] BASIC METABOLIC PANEL (06/15/2019 11:34 AM EST) Glucose 214 (H) 70 - 99 mg/dl [facility] BUN 80 (H) 9 - 20 mg/dl [facility] Creatinine 6.7 (H) 0.8 - 1.5 mg/dl [facility] Sodium 136 134 - 145 mmol/L [facility] Potassium 4.6 3.5 - 5.1 mmol/L [facility] Chloride 105 98 - 107 mmol/L [facility] CO2 20 (L) 22 - 30 mmol/L [facility] Calcium 7.7 (L) 8.3 - 10.1 mg/dl [facility] eGFR 10 See Interpretation [facility] Comment: Below ml/min/1.73ml GROUP Estimated GFR Interpretation: Sq LABORATORY Above 60ml/min/1.73m2 = Normal Renal Function 30-59 ml/min/1.73m2 = Stage 3 Chronic Kidney Disease 15-29 ml/min/1.73m2 = Stage 4 Chronic Kidney Disease Less than 15 ml/min/1.73m2 = Stage 5 Chronic Kidney Disease The GFR value is calculated using the Modification of Diet in Renal Disease ( MDRD) Study Equation which can be found at: https://www.kidney.org/content/rcqx-ffqhw-pmetwgit BUN/Creatinine 12 6 - 22 RATIO [facility] LAB[facility] Anion Gap 11 3 - 11 mmol/L [facility] Specimen Blood - Blood specimen (specimen) Performing Organization Address City/State/Zipcode Phone Number [facility] [address] [facility] [address] XR CHEST 1 VIEW (06/14/2019 10:04 AM EST) Specimen Impressions Performed At Bilateral patchy opacities, interlobular septal prominence, and left pleural effusion would most commonly represent pulmonary edema. Multifocal pneumonia could also appear this way in the appropriate clinical setting. Signed by Jayy Orellana MD, MFA on 06/14/2019 10:42 AM Narrative Performed At Procedure(s): XR CHEST 1 VIEW Date of service: 06/14/2019 9:28 AM Provided clinical information: 79 years, Male, "sob" Procedure and materials: 1 image of the chest was obtained. Comparison studies: 06/11/2019. Devices: Sternotomy wires. EKG leads. Prosthetic aortic valve. Procedure Note Interface, Rad Results - 06/14/2019 10:44 AM EST Procedure(s): XR CHEST 1 VIEW Date of service: 06/14/2019 9:28 AM Provided clinical information: 79 years, Male, "sob" Procedure and materials: 1 image of the chest was obtained. Comparison studies: 06/11/2019. Devices: Sternotomy wires. EKG leads. Prosthetic aortic valve. IMPRESSION Bilateral patchy opacities, interlobular septal prominence, and left pleural effusion would most commonly represent pulmonary edema. Multifocal pneumonia could also appear this way in the appropriate clinical setting. Signed by Jayy Orellana MD, MFA on 06/14/2019 10:42 AM RENAL FUNCTION PANEL (06/14/2019 5:12 AM EST) Sodium 139 134 - 145 mmol/L [facility] Potassium 4.5 3.5 - 5.1 mmol/L [facility] Chloride 110 (H) 98 - 107 mmol/L [facility] CO2 17 (L) 22 - 30 mmol/L [facility] Glucose 107 (H) 70 - 99 mg/dl [facility] Creatinine 6.8 (H) 0.8 - 1.5 mg/dl [facility] BUN 80 (H) 9 - 20 mg/dl [facility] Calcium 7.3 (L) 8.3 - 10.1 mg/dl [facility] Albumin 3.3 (L) 3.5 - 5.0 g/dl [facility] Phosphorus 4.8 (H) 2.5 - 4.5 MG/DL [facility] eGFR 10 See Interpretation [facility] Comment: Below ml/min/1.73ml GROUP Estimated GFR Interpretation: LABORATORY Above 60ml/min/1.73m2 = Normal Renal Function 30-59 ml/min/1.73m2 = Stage 3 Chronic Kidney Disease 15-29 ml/min/1.73m2 = Stage 4 Chronic Kidney Disease Less than 15 ml/min/1.73m2 = Stage 5 Chronic Kidney Disease The GFR value is calculated using the Modification of Diet in Renal Disease ( MDRD) Study Equation which can be found at: https://www.kidney.org/content/zoki-mioaa-sksnhbqg BUN/Creatinine 12 6 - 22 RATIO [facility]OR[facility]ORY Anion Gap 12 (H) 3 - 11 mmol/L [facility] Specimen Blood Performing Organization Address City/State/Zipcode Phone Number [facility] [address] [facility] [place] [address] BASIC METABOLIC PANEL (06/14/2019 5:12 AM EST) Glucose 118 (H) 70 - 99 mg/dl [facility] BUN 80 (H) 9 - 20 mg/dl [facility] Creatinine 6.7 (H) 0.8 - 1.5 mg/dl [facility] Sodium 141 134 - 145 mmol/L [facility] Potassium 4.5 3.5 - 5.1 mmol/L [facility] Chloride 110 (H) 98 - 107 mmol/L [facility] CO2 21 (L) 22 - 30 mmol/L [facility] Calcium 7.4 (L) 8.3 - 10.1 mg/dl [facility] eGFR 10 See Interpretation [facility] Comment: Below ml/min/1.73ml GROUP Estimated GFR Interpretation: LABORATORY Above 60ml/min/1.73m2 = Normal Renal Function 30-59 ml/min/1.73m2 = Stage 3 Chronic Kidney Disease 15-29 ml/min/1.73m2 = Stage 4 Chronic Kidney Disease Less than 15 ml/min/1.73m2 = Stage 5 Chronic Kidney Disease The GFR value is calculated using the Modification of Diet in Renal Disease ( MDRD) Study Equation which can be found at: https://www.kidney.org/content/myfb-khxjg-inqdmuqo BUN/Creatinine 12 6 - 22 RAT[facility]ORATORY Anion Gap 10 3 - 11 mmol/L [facility] Specimen Blood Performing Organization Address City/State/Zipcode Phone Number [facility] [address] [place] [address] CBC NO DIFFERENTIAL (06/14/2019 5:12 AM EST) WBC Count 5.32Comment: 4.23 - 9.07 [facility] Methodology was K/uL GROUP LAB[facility]ORY changed 06/24/2018. Please note updated reference range and units. RBC Count 2.85 (L) 4.30 - 5.89 [facility] M/UL [facility] Hemoglobin 8.4 (L) 13.7 - 17.5 [facility] g/dL GROUP [facility] Hematocrit 25.6 (L) 40.1 - 51.0 % [facility] MCV 89.8 79.0 - 92.2 [facility] FL [facility] MCH 29.5 25.7 - 32.2 [facility] PG [facility] MCHC 32.8 32.3 - 36.5 [facility] g/dL [facility] Platelet Count 193 163 - 337 [facility] K/uL [facility] MPV 11.8 9.4 - 12.4 FL [facility] RDW 15.6 (H) 11.6 - 14.4 % [facility] Specimen Blood Performing Organization Address [facility] Phone Number [facility] [address] [place] [address] [phone] GLUCOSE (POCT) (06/13/2019 8:08 PM EST) Glucose POCT 106 (H) 70 - 99 mg/dl POINT OF CARE Result Comment: TESTING Performed at: [facility] POCT Vivek Minor MD, Laboratory Utility Lineman [address] [place] [address] Specimen Performing Organization Address [facility] Phone Number POINT OF CARE TESTING RENAL FAILURE PANEL (06/13/2019 3:59 AM EST) Sodium 139 134 - 145 mmol/L [facility] Potassium 4.4 3.5 - 5.1 mmol/L [facility] Chloride 111 (H) 98 - 107 mmol/L [facility] CO2 20 (L) 22 - 30 mmol/L [facility] Calcium 7.1 (L) 8.3 - 10.1 mg/dl [facility] Albumin 2.9 (L) 3.5 - 5.0 g/dl [facility] BUN 76 (H) 9 - 20 mg/dl [facility] Creatinine 7.0 (H) 0.8 - 1.5 mg/dl [facility] Glucose 114 (H) 70 - 99 mg/dl [facility] Total Protein 5.4 (L) 6.3 - 8.2 g/dl [facility] Total Bilirubin 0.4 0.0 - 1.1 MG/DL [facility] AST 24 17 - 59 U/L [facility] ALT 26 21 - 72 U/L [facility] Alkaline 47 40 - 150 U/L [facility] Phosphatase [facility] Phosphorus 5.8 (H) 2.5 - 4.5 MG/DL [facility] Uric Acid 7.8 3.5 - 8.5 MG/DL [facility] eGFR 9 See Interpretation [facility] Comment: Below ml/min/1.73ml GROUP Estimated GFR Interpretation: Sq LABORATORY Above 60ml/min/1.73m2 = Normal Renal Function 30-59 ml/min/1.73m2 = Stage 3 Chronic Kidney Disease 15-29 ml/min/1.73m2 = Stage 4 Chronic Kidney Disease Less than 15 ml/min/1.73m2 = Stage 5 Chronic Kidney Disease The GFR value is calculated using the Modification of Diet in Renal Disease ( MDRD) Study Equation which can be found at: https://www.kidney.org/content/vrzu-koowu-nkuhzxhm BUN/Creatinine 11 6 - 22 RATIO [facility] LABOR[facility]ORY Anion Gap 8 3 - 11 mmol/L [facility] A/G Ratio 1.2 0.8 - 2.0 ratio [facility] Specimen Blood - Blood specimen (specimen) Performing Organization Address City/State/Zipcode Phone Number [facility] [address] [place] [address] [phone] CBC WITH DIFFERENTIAL (06/13/2019 3:59 AM EST) WBC Count 4.76 4.23 - 9.07 K/uL [facility] RBC Count 2.73 (L) 4.30 - 5.89 M/UL [facility] Hemoglobin 8.0 (L) 13.7 - 17.5 g/dL [facility] Hematocrit 24.3 (L) 40.1 - 51.0 % [facility] MCV 89.0 79.0 - 92.2 FL [facility] MCH 29.3 25.7 - 32.2 PG [facility] MCHC 32.9 32.3 - 36.5 g/dL [facility] Platelet Count 180 163 - 337 K/uL [facility] MPV 12.0 9.4 - 12.4 FL [facility] RDW 15.9 (H) 11.6 - 14.4 % [facility] Neutrophil % 71.6 (H) 34.0 - 67.9 % [facility] Lymphocyte % 12.2 (L) 21.8 - 53.1 % [facility] Monocyte % 10.3 5.3 - 12.2 % [facility] Eosinophil % 5.3 0.8 - 7.0 % [facility] Basophil % 0.4 0.2 - 1.2 % [facility] nRBC % 0.0 0.0 - 0.2 % [facility] Neutrophil # 3.41 1.78 - 5.38 K/UL [facility] Lymphocyte # 0.58 (L) 1.32 - 3.57 K/UL [facility] Monocyte # 0.49 0.30 - 0.82 K/UL [facility] Eosinophil # 0.25 0.04 - 0.54 K/UL [facility] Basophil # 0.02 0.01 - 0.08 K/UL [facility] Immature Gran % 0.2 0.0 - 0.4 % [facility] Immature Gran # 0.01 0.00 - 0.03 K/uL [facility] NRBC # 0.00 0.00 - 0.12 K/uL [facility] Specimen Blood - Blood specimen (specimen) Performing Organization Address [facility] Phone Number [facility] [address] [place] [address] IRON & TIBC WITH % SATURATION (06/13/2019 3:59 AM EST) Iron Serum 83 49 - 181 UG/DL [facility] Iron Binding Capacity 264 261 - 478 UG/DL [facility] % Saturation 31 20 - 50 % [facility] Specimen Blood - Blood specimen (specimen) Performing Organization Address [facility] Phone Number [facility] [address] [place] [address] [phone] FERRITIN (06/13/2019 3:59 AM EST) Ferritin 92.7 18.0 - 464.0 NG/ML [facility] Specimen Blood - Blood specimen (specimen) Performing Organization Address [facility] Phone Number [facility] [address] [place] [address] [phone] VITAMIN B12 / FOLATE (06/13/2019 3:59 AM EST) Vitamin B12 600 239 - 931 pg/ml [facility] Folate 7.4 2.8 - 20.0 ng/ml [facility] Specimen Blood - Blood specimen (specimen) Performing Organization Address [facility] Phone Number [facility] [address] [place] [address] MAGNESIUM LEVEL (06/13/2019 3:59 AM EST) Magnesium 1.9 1.6 - 2.3 MG/DL [facility] Specimen Blood - Blood specimen (specimen) Performing Organization Address [facility] Phone Number [facility] [address] [place] [address] [phone] EEG RESULT NOTE (06/13/2019 12:00 AM EST) Procedure Note Jurgen Don MD - 06/13/2019 12:00 AM EST EEG REPORT This is an inpatient at [facility]. I do not have referring physician. He is 79 years old. EEG DIAGNOSIS: Essentially normal awake EEG. EEG REPORT: The background activity consists of a poorly modulated alpha rhythm that is quite irregular and has an average frequency of around 8 to 9 Hz seen posteriorly that is overall symmetrical. The patient was not hyperventilated nor photic stimulated. The EKG showed a sinus rhythm at around 70 beats per minute. The patient was not drowsy. 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 It did not overall affect the interpretation of the record significantly. The patient had a fair amount of artifact that included electrode artifact and coughing artifact and some muscle artifact. CLINICAL INTERPRETATION: This is essentially normal awake EEG without evidence of focal abnormalities nor epileptogenic activity. JURGEN DON MD SECTION OF NEUROLOGY KESHIA/NOO/DUR RECEIPT ID: [id number] TID#: [id number] Performing Organization Address [facility] Phone Number [facility] [address] [place] [address] MAGNESIUM LEVEL (06/12/2019 4:01 PM EST) Magnesium 2.1 1.6 - 2.3 MG/DL [facility] Specimen Blood - Blood specimen (specimen) Performing Organization Address [facility] Phone Number [facility] [address] [place] [address] [phone] RENAL FUNCTION PANEL (06/12/2019 4:01 PM EST) Sodium 139 134 - 145 mmol/L [facility] Potassium 4.9 3.5 - 5.1 mmol/L [facility] Chloride 111 (H) 98 - 107 mmol/L [facility] CO2 18 (L) 22 - 30 mmol/L [facility] Glucose 112 (H) 70 - 99 mg/dl [facility] Creatinine 7.4 (H) 0.8 - 1.5 mg/dl [facility] BUN 80 (H) 9 - 20 mg/dl [facility] Calcium 6.9 (L) 8.3 - 10.1 mg/dl [facility] Albumin 3.3 (L) 3.5 - 5.0 g/dl [facility] Phosphorus 6.3 (H) 2.5 - 4.5 MG/DL [facility] eGFR 9 See Interpretation [facility] Comment: Below ml/min/1.73ml GROUP Estimated GFR Interpretation: LABORATORY Above 60ml/min/1.73m2 = Normal Renal Function 30-59 ml/min/1.73m2 = Stage 3 Chronic Kidney Disease 15-29 ml/min/1.73m2 = Stage 4 Chronic Kidney Disease Less than 15 ml/min/1.73m2 = Stage 5 Chronic Kidney Disease The GFR value is calculated using the Modification of Diet in Renal Disease ( MDRD) Study Equation which can be found at: https://www.kidney.org/content/qocn-odtgi-hkahupca BUN/Creatinine 11 6 - 22 [facility] Anion Gap 10 3 - 11 mmol/L [facility] Specimen Blood - Blood specimen (specimen) Performing Organization Address [facility] Phone Number [facility] [address] [place] [place] [address] URINE MICROSCOPIC EXAM (06/12/2019 11:10 AM EST) Urine Wbc FEW 0 - 5 /HPF [facility] Urine Rbc FEW 0 - 2 /HPF [facility] Urine Epithelial Few None Seen /HPF [facility] Urine Bacteria Few None Seen /HPF [facility] Amorphous Present None Seen [facility] Specimen Urine - Urine specimen obtained by clean catch procedure (specimen) Performing Organization Address [facility] Phone Number [facility] [address] [place] [place] [address] [phone] URINE PROTEIN / CREATININE RATIO (06/12/2019 11:10 AM EST) Urine Total Protein 38 (H) 0 - 12 MG/DL [facility] Urine Creatinine 72.6 20.0 - 320.0 MG/DL [facility] URINE TP CREATININE 1 No Established [facility] Reference Range GROUP [facility] mg/dl Specimen Urine - Urine specimen (specimen) Performing Organization Address [facility] Number [facility] [address] [place] [address] [phone] MAGNESIUM LEVEL (06/12/2019 6:54 AM EST) Magnesium 1.7 1.6 - 2.3 MG/DL [facility] Specimen Blood - Blood specimen (specimen) Performing Organization Address [facility] Phone Number [facility] [address] [place] [address] RENAL FUNCTION PANEL (06/12/2019 6:54 AM EST) Sodium 140 134 - 145 mmol/L [facility] Potassium 5.3 (H) 3.5 - 5.1 mmol/L [facility] Chloride 114 (H) 98 - 107 mmol/L [facility] CO2 17 (L) 22 - 30 mmol/L [facility] Glucose 87 70 - 99 mg/dl [facility] Creatinine 7.4 (H) 0.8 - 1.5 mg/dl [facility] BUN 84 (H) 9 - 20 mg/dl [facility] Calcium 7.0 (L) 8.3 - 10.1 mg/dl [facility] Albumin 2.9 (L) 3.5 - 5.0 g/dl [facility] Phosphorus 6.3 (H) 2.5 - 4.5 MG/DL [facility] eGFR 9 See Interpretation [facility] Comment: Below ml/min/1.73ml GROUP Estimated GFR Interpretation: Sq LABORATORY Above 60ml/min/1.73m2 = Normal Renal Function 30-59 ml/min/1.73m2 = Stage 3 Chronic Kidney Disease 15-29 ml/min/1.73m2 = Stage 4 Chronic Kidney Disease Less than 15 ml/min/1.73m2 = Stage 5 Chronic Kidney Disease The GFR value is calculated using the Modification of Diet in Renal Disease ( MDRD) Study Equation which can be found at: https://www.kidney.org/content/galw-euznf-hefgudae BUN/Creatinine 11 6 - 22 RATIO [facility]ORATORY Anion Gap 9 3 - 11 mmol/L [facility] Specimen Blood - Blood specimen (specimen) Performing Organization Address [facility] Phone Number [facility] [address] [place] [address] VITAMIN D 25 HYDROXY ([facility]) (06/12/2019 1:25 AM EST) Vitamin D 25 <12.8 (L) 32.0 - 100.0 [facility]DR[facility] ng/ml [facility] Specimen Blood - Blood specimen (specimen) Narrative Performed At Interpretation: [facility] <20 ng/ml Deficiency 20-<30 ng/ml Insufficiency 32-100 ng/ml Sufficiency >100 ng/ml Potential Toxicity Performing Organization Address [facility] Phone Number [facility] [address] [place] [address] [phone] BASIC METABOLIC PANEL (06/12/2019 1:25 AM EST) Glucose 96 70 - 99 mg/dl [facility] BUN 86 (H) 9 - 20 mg/dl [facility] Creatinine 7.4 (H) 0.8 - 1.5 mg/dl [facility] Sodium 137 134 - 145 mmol/L [facility] Potassium 5.6 (H) 3.5 - 5.1 mmol/L [facility] Chloride 112 (H) 98 - 107 mmol/L [facility] CO2 17 (L) 22 - 30 mmol/L [facility] Calcium 7.1 (L) 8.3 - 10.1 mg/dl [facility] eGFR 9 See Interpretation [facility] Comment: Below ml/min/1.73ml GROUP Estimated GFR Interpretation: Sq LABORATORY Above 60ml/min/1.73m2 = Normal Renal Function 30-59 ml/min/1.73m2 = Stage 3 Chronic Kidney Disease 15-29 ml/min/1.73m2 = Stage 4 Chronic Kidney Disease Less than 15 ml/min/1.73m2 = Stage 5 Chronic Kidney Disease The GFR value is calculated using the Modification of Diet in Renal Disease ( MDRD) Study Equation which can be found at: https://www.kidney.org/content/hywb-tuxyx-yfyhqaun BUN/Creatinine 12 6 - 22 RATIO [facility]ORY Anion Gap 8 3 - 11 mmol/L [facility] Specimen Blood - Blood specimen (specimen) Performing Organization Address [facility] Phone Number [facility] [address] [place] [address] [phone] PROLACTIN (06/12/2019 1:25 AM EST) Prolactin 10.7 3.7 - 17.9 ng/ml [facility] Specimen Blood - Blood specimen (specimen) Performing Organization Address [facility] Phone Number [facility] [address] [place] [address] URINE MICROSCOPIC WITH REFLEX CULTURE (06/11/2019 9:16 PM EST) Urine Wbc 0-2 0 - 5 /HPF [facility] Urine Epithelial Few None Seen /HPF [facility] Urine Bacteria Few None Seen /HPF [facility] Urine Mucus Present (A) Negative [facility] Specimen Urine - Urine specimen obtained by clean catch procedure (specimen) Performing Organization Address [facility] Phone Number [facility] [address] [address] POTASSIUM, URINE (06/11/2019 9:16 PM EST) Urine Potassium 18.3 13.0 - 101.0 [facility] MMOL/L LABORATORY Specimen Urine - Urine specimen obtained by clean catch procedure (specimen) Performing Organization Address [facility] Phone Number [facility] [address] [place] [address] CHLORIDE, URINE (06/11/2019 9:16 PM EST) Urine Chloride 79 No Established [facility] Reference Range LABORATORY Available mmol/L Specimen Urine - Urine specimen obtained by clean catch procedure (specimen) Performing Organization Address [facility] Number [facility] [address] [place] [address] [phone] SODIUM, URINE (06/11/2019 9:16 PM EST) Urine Sodium 90 30 - 90 MEQ/L [facility] Specimen Urine - Urine specimen obtained by clean catch procedure (specimen) Performing Organization Address [facility] Phone Number [facility] [address] [place] [address] CREATININE, URINE (06/11/2019 9:16 PM EST) Urine Creatinine 62.2 20.0 - 320.0 MG/DL [facility] Specimen Urine - Urine specimen obtained by clean catch procedure (specimen) Performing Organization Address [facility] Phone Number [facility] [address] [id number] URINALYSIS (LAB) WITH REFLEX CULTURE (06/11/2019 9:16 PM EST) Urine Color Yellow Yellow [facility] Urine Appearance Clear Clear [facility] Urine Glucose Negative Negative mg/dl [facility] Urine Bilirubin Negative Negative [facility] Urine Ketones Negative Negative [facility] Urine Specific 1.011 1.005 - 1.030 [facility]ORY Urine Blood Trace (A) Negative [facility] Urine Ph 5.5 5.0 - 8.0 [facility] Urine Protein 30 (A) Negative mg/dl [facility] Urine Urobilinogen 0.2 0.2 - 1.0 E.U./DL [facility] Urine Nitrite Negative Negative [facility] Urine Leukocytes Negative Negative [facility] Specimen Urine - Urine specimen obtained by clean catch procedure (specimen) Performing Organization Address City/[facility] Phone Number [facility] [address] [place] [address] [phone] ABG (06/11/2019 7:48 PM EST) pH 7.25 (L) 7.35 - 7.45 [facility] pCO2 33 (L) 35 - 44 mmHg [facility] PO2 70 67 - 95 mmHg [facility] % Saturation 90.2 (L) 92.0 - 98.0 % [facility] Base Excess -12 (L) -2 - 2 mmol/L [facility] Dario's Test Positive [facility] ABG Conditions Room Air [facility] Specimen Blood, arterial - Blood specimen (specimen) Performing Organization Address City/[facility] Phone Number [facility] [address] [place] [address] [phone] XR CHEST 1 VIEW (06/11/2019 7:40 PM EST) Specimen Impressions Performed At No definite acute findings. Signed by Akash Beach on 06/11/2019 8:19 PM Narrative Performed At Procedure(s): XR CHEST 1 VIEW Date of service: 06/11/2019 6:46 PM Provided clinical information: 79 years, Male, "Wheezing" Procedure and materials: Standard protocol. Comparison studies: 01/07/2017 Observations: Sternotomy wires are in place. The lungs are clear. There is no pneumothorax or effusion. The cardiomediastinal silhouette is remarkable only for atherosclerotic calcification of the aortic arch. There is no acute osseous abnormality. Procedure Note Interface, Rad Results - 06/11/2019 8:21 PM EST Procedure(s): XR CHEST 1 VIEW Date of service: 06/11/2019 6:46 PM Provided clinical information: 79 years, Male, "Wheezing" Procedure and materials: Standard protocol. Comparison studies: 01/07/2017 Observations: Sternotomy wires are in place. The lungs are clear. There is no pneumothorax or effusion. The cardiomediastinal silhouette is remarkable only for atherosclerotic calcification of the aortic arch. There is no acute osseous abnormality. IMPRESSION No definite acute findings. Signed by Akash Beach on 06/11/2019 8:[address] ABDOMEN PELVIS WITHOUT IV CONTRAST (06/11/2019 7:00 PM EST) Specimen Impressions Performed At 1. No evidence for acute obstructive uropathy. [...] by Akash Beach on 06/11/2019 8:26 PM Narrative Performed At Procedure(s): CT ABDOMEN PELVIS WITHOUT IV CONTRAST Date of service: 06/11/2019 6:42 PM Provided clinical information: 79 years, Male, "edilson" Procedure and materials: Axial CT images were obtained through the abdomen and pelvis. Sagittal and coronal reformatted images were provided. Contrast: None. Potential limitations: Lack of contrast limits organ evaluation. Comparison studies: None. Observations: Trace bilateral pleural effusions with dependent atelectasis in the petrous portions of the lung bases. Limited inclusion the heart shows aortic valvular prosthetic and evidence of prior coronary surgery. The noncontrast appearance of the liver, gallbladder, pancreas, spleen, and adrenal glands is negative. There is a 4.4 cm cyst involving the right kidney. Low-intermediate density lesion arising from the upper left kidney measuring 1.7 cm. There are bilateral renal vascular calcifications in the rnony, but no nephrolithiasis. No hydronephrosis. Ureters are normal. The bladder is minimally distended with diffuse wall thickening. The prostate is nodular, protruding slightly into the base the bladder. The distal esophagus, stomach, small bowel, and colon are grossly negative with no evidence of bowel inflammation or bowel obstruction. There is extensive aortoiliac atherosclerotic calcification. IVC and abdominal veins are negative. There is no abdominal free fluid, free air, or adenopathy. There are no acute osseous findings. Procedure Note Interface, Rad Results - 06/11/2019 8:28 PM EST Procedure(s): CT ABDOMEN PELVIS WITHOUT IV CONTRAST Date of service: 06/11/2019 6:42 PM Provided clinical information: 79 years, Male, "edilson" Procedure and materials: Axial CT images were obtained through the abdomen and pelvis. Sagittal and coronal reformatted images were provided. Contrast: None. Potential limitations: Lack of contrast limits organ evaluation. Comparison studies: None. Observations: Trace bilateral pleural effusions with dependent atelectasis in the petrous portions of the lung bases. Limited inclusion the heart shows aortic valvular prosthetic and evidence of prior coronary surgery. The noncontrast appearance of the liver, gallbladder, pancreas, spleen, and adrenal glands is negative. There is a 4.4 cm cyst involving the right kidney. Low-intermediate density lesion arising from the upper left kidney measuring 1.7 cm. There are bilateral renal vascular calcifications in the ronny, but no nephrolithiasis. No hydronephrosis. Ureters are normal. The bladder is minimally distended with diffuse wall thickening. The prostate is nodular, protruding slightly into the base the bladder. The distal esophagus, stomach, small bowel, and colon are grossly negative with no evidence of bowel inflammation or bowel obstruction. There is extensive aortoiliac atherosclerotic calcification. IVC and abdominal veins are negative. There is no abdominal free fluid, free air, or adenopathy. There are no acute osseous findings. IMPRESSION 1. No evidence for acute obstructive uropathy. [...] by Akash Beach on 06/11/2019 8:26 PM LACTIC ACID (LAB) (06/11/2019 6:38 PM EST) Lactic Acid 1.1 0.7 - 2.1 MMOL/L [facility] Specimen Blood - Blood specimen (specimen) Performing Organization Address [facility] Phone Number [facility] [address] [place] [address] [phone] INTACT PTH (06/11/2019 6:36 PM EST) PTH Intact 492.8 (H) 10.0 - 73.0 pg/ml [facility] Specimen Blood - Blood specimen (specimen) Performing Organization Address [facility] Phone Number [facility] [address] [place] [address] [phone] CK MB FRACTION (06/11/2019 6:36 PM EST) CK-MB 3.61 (H) 0.00 - 3.60 NG/ML [facility] Specimen Blood - Blood specimen (specimen) Performing Organization Address [facility] Phone Number [facility] [address] [facility] [place] [address] MAGNESIUM LEVEL (06/11/2019 6:36 PM EST) Magnesium 1.9 1.6 - 2.3 MG/DL [facility] Specimen Blood - Blood specimen (specimen) Performing Organization Address [facility] Number [facility] [address] [place] [address] RENAL FAILURE PANEL (06/11/2019 6:36 PM EST) Sodium 137 134 - 145 mmol/L [facility] Potassium 5.6 (H) 3.5 - 5.1 mmol/L [facility] Chloride 111 (H) 98 - 107 mmol/L [facility] CO2 15 (L) 22 - 30 mmol/L [facility] Calcium 6.7 (L) 8.3 - 10.1 mg/dl [facility] Albumin 3.2 (L) 3.5 - 5.0 g/dl [facility] BUN 81 (H) 9 - 20 mg/dl [facility] Creatinine 7.5 (H) 0.8 - 1.5 mg/dl [facility] Glucose 116 (H) 70 - 99 mg/dl [facility] Total Protein 6.0 (L) 6.3 - 8.2 g/dl [facility] Total Bilirubin 0.4 0.0 - 1.1 MG/DL [facility] AST 22 17 - 59 U/L [facility] ALT 21 21 - 72 U/L [facility] Alkaline 49 40 - 150 U/L [facility] Phosphatase [facility] Phosphorus 6.4 (H) 2.5 - 4.5 MG/DL [facility] Uric Acid 7.5 3.5 - 8.5 MG/DL [facility] eGFR 9 See Interpretation [facility] Comment: Below ml/min/1.73ml GROUP Estimated GFR Interpretation: Sq LABORATORY Above 60ml/min/1.73m2 = Normal Renal Function 30-59 ml/min/1.73m2 = Stage 3 Chronic Kidney Disease 15-29 ml/min/1.73m2 = Stage 4 Chronic Kidney Disease Less than 15 ml/min/1.73m2 = Stage 5 Chronic Kidney Disease The GFR value is calculated using the Modification of Diet in Renal Disease ( MDRD) Study Equation which can be found at: https://www.kidney.org/content/cfdf-snmrw-dmcblrsy BUN/Creatinine 11 6 - 22 RATIO [facility] Anion Gap 11 3 - 11 mmol/L [facility] A/G Ratio 1.1 0.8 - 2.0 ratio [facility] Specimen Blood - Blood specimen (specimen) Performing Organization Address City/State/[facility] Phone Number [facility] [address] [facility] [address] LIVER FUNCTION PROFILE (06/11/2019 6:36 PM EST) Total Protein 6.0 (L) 6.3 - 8.2 g/dl [facility] Albumin 3.2 (L) 3.5 - 5.0 g/dl [facility] Total Bilirubin 0.4 0.0 - 1.1 MG/DL [facility] Direct Bilirubin 0.0 0.0 - 0.3 MG/DL [facility] AST 22 17 - 59 U/L [facility] ALT 21 21 - 72 U/L [facility] Alkaline Phosphatase 49 40 - 150 U/L [facility] A/G Ratio 1.1 0.8 - 2.0 ratio [facility] Specimen Blood - Blood specimen (specimen) Performing Organization Address [facility] Phone Number [facility] [address] [place] [address] CBC NO DIFFERENTIAL (06/11/2019 6:36 PM EST) WBC Count 5.43Comment: 4.23 - 9.07 [facility] Methodology was K/uL [facility] LAB[facility]ORY changed 06/24/2018. Please note updated reference range and units. RBC Count 3.01 (L) 4.30 - 5.89 [facility] M/UL [facility] Hemoglobin 8.6 (L) 13.7 - 17.5 [facility] g/dL [facility] Hematocrit 27.6 (L) 40.1 - 51.0 % [facility] MCV 91.7 79.0 - 92.2 [facility] FL [facility] MCH 28.6 25.7 - 32.2 [facility] PG [facility] MCHC 31.2 (L) 32.3 - 36.5 [facility] g/dL [facility] Platelet Count 194 163 - 337 [facility] K/uL [facility] MPV 11.9 9.4 - 12.4 FL [facility] RDW 15.9 (H) 11.6 - 14.4 % [facility] Specimen Blood - Blood specimen (specimen) Performing Organization Address [facility] Phone Number [facility] [address] [place] [address] [phone] IN PT/ED 12 LEAD EKG (06/11/2019 6:28 PM EST) Ventricular Rate 69 BPM CARDIOLOGY DEPARTMENT Atrial rate 69 BPM CARDIOLOGY DEPARTMENT P-R Interval 216 ms CARDIOLOGY DEPARTMENT QRS Duration 100 ms CARDIOLOGY DEPARTMENT Q-T Interval 428 ms CARDIOLOGY DEPARTMENT QTC Calculation 458 ms CARDIOLOGY (Bezet) DEPARTMENT P [place] 68 degrees CARDIOLOGY DEPARTMENT R [place] 61 degrees CARDIOLOGY DEPARTMENT T [place] 48 degrees CARDIOLOGY DEPARTMENT Diagnosis Line Sinus rhythm with 1st degree A-V block CARDIOLOGY Otherwise normal ECG DEPARTMENT When compared with ECG of 11-JUN-2019 18:27, (unconfirmed) No significant change was found Confirmed by AGNIESZKA RAMSEY ([id number]) ([id number]) on 06/12/2019 8:44:20 AM Specimen Performing Organization Address City/State/Zipcode Phone Number CARDIOLOGY DEPARTMENT CARDIOLOGY TEST RESULT (06/11/2019 12:00 PM EST) Narrative Performed At documented in this encounter Visit Diagnoses Diagnosis Paroxysmal atrial fibrillation (HCC) Atrial fibrillation Acute gastritis without hemorrhage, unspecified gastritis type EDILSON (acute kidney injury) (HCC) Acute kidney failure, unspecified Essential hypertension, benign S/P AVR (aortic valve replacement) Heart valve replaced by other means Seizure (HCC) Other convulsions documented in this encounter Administered Medications Medication Order MAR Action Action Date Dose Rate Site albuterol-ipratropium (DUO-NEB) Given 06/14/2019 1:55 AM EST 3 mg nebulizer unit dose (RT ADMIN) 0.5-2.5 (3) MG/3ML 3 mg, Inhalation-SVN, Q4 HRS PRN, Starting 06/11/19 at 1953, Until Thu06/14/19 at 0832, PER RT FREQUENCY, Ordering this RT Admin Medication will automatically order the patient to be placed on the Respiratory Therapy Patient Driven Protocol RT may increase the frequency of administration to q2h, as needed, if symtoms are not controlled at current ordered frequency. If administer three times consecutively without improvement, call provider., Given 06/13/2019 6:07 PM EST 3 mg Given 06/13/2019 4:00 AM EST 3 mg albuterol-ipratropium (DUO-NEB) nebulizer unit Given 06/14/2019 7:03 PM EST 3 mg dose (RT ADMIN) 0.5-2.5 (3) MG/3ML 3 mg, Inhalation-SVN, RT Q4 HRS, Starting Thu06/14/19 at 0840, Until Thu06/14/19 at 1909, PER RT FREQUENCY, Ordering this RT Admin Medication will automatically order the patient to be placed on the Respiratory Therapy Patient Driven Protocol RT may increase the frequency of administration to q2h, as needed, if symtoms are not controlled at current ordered frequency. If administer three times consecutively without improvement, call provider., Given 06/14/2019 11:41 AM EST 3 mg Given 06/14/2019 8:59 AM EST 3 mg albuterol-ipratropium (DUO-NEB) nebulizer unit Given 06/16/2019 7:39 PM EST 3 mg dose (RT ADMIN) 0.5-2.5 (3) MG/3ML 3 mg, Inhalation-SVN, RT Q4 HRS W/A, Starting Thu06/14/19 at 1910, Until Thu06/17/19 at 0809, PER RT FREQUENCY, Ordering this RT Admin Medication will automatically order the patient to be placed on the Respiratory Therapy Patient Driven Protocol RT may increase the frequency of administration to q2h, as needed, if symtoms are not controlled at current ordered frequency. If administer three times consecutively without improvement, call provider., Given 06/16/2019 3:28 PM EST 3 mg Given 06/16/2019 1:00 PM EST 3 mg albuterol-ipratropium (DUO-NEB) nebulizer unit Given 06/21/2019 1:05 PM EST 3 mg dose (RT ADMIN) 0.5-2.5 (3) MG/3ML 3 mg, Inhalation-SVN, NOW, 1 dose, Thu06/21/19 at 1300, [facility] only: Ordering this RT Admin Medication will automatically order the patient to be placed on the Respiratory Therapy Patient Driven Protocol [id number] RT may increase the frequency of administration to q2h, as needed, if symtoms are not controlled at current ordered frequency. If administer three times consecutively without improvement, call provider., amLodipine (NORVASC) tablet 10 mg Given 06/22/2019 9:31 AM EST 10 mg 10 mg, Oral, DAILY, First dose on 06/11/19 at 1900, Until Discontinued, Hold if SBP <90 . Thank you., Given 06/21/2019 9:10 AM EST 10 mg Given 06/20/2019 9:00 AM EST 10 mg aspirin (ECOTRIN) enteric coated tablet 81 mg Given 06/22/2019 9:31 AM EST 81 mg 81 mg, Oral, DAILY, First dose on 06/12/19 at 0900, Until Discontinued Given 06/21/2019 9:10 AM EST 81 mg Given 06/20/2019 9:00 AM EST 81 mg atorvastatin (LIPITOR) tablet 80 mg Given 06/21/2019 8:59 PM EST 80 mg 80 mg, Oral, QHS, First dose on 06/11/19 at 2100, Until Discontinued Given 06/20/2019 10:10 PM EST 80 mg Given 06/19/2019 8:25 PM EST 80 mg budesonide (RHINOCORT AQ) nasal spray 1 Given 06/20/2019 9:01 AM EST 1 [place], Nasal, DAILY, First dose on Thu06/15/19 at 0900, Until Discontinued Given 06/17/2019 8:42 AM EST 1 [place] Given 06/16/2019 9:26 AM EST 1 [place] calcitriol (ROCALTROL) capsule 0.25 mcg Given 06/12/2019 8:13 AM EST 0.25 mcg 0.25 mcg, Oral, DAILY, First dose on 06/11/19 at 2010, Until Discontinued Given 06/11/2019 10:39 PM EST 0.25 mcg calcium gluconate IV mixture New Bag 06/11/2019 8:41 PM EST 4.65 mEq 300 mL/hr 4.65 mEq 4.65 mEq (1 g), Intravenous, at 300 mL/hr, X1, 1 dose, First dose (after last modification) on 06/11/19 at 2020 calcium gluconate IV mixture New Bag 06/11/2019 10:40 PM EST 4.65 mEq 300 mL/hr 4.65 mEq 4.65 mEq (1 g), Intravenous, at 300 mL/hr, X1, 1 dose, First dose on 06/11/19 at 2200 calcium gluconate IV mixture New Bag 06/12/2019 5:45 PM EST 4.65 mEq 300 mL/hr 4.65 mEq 4.65 mEq (1 g), Intravenous, at 300 mL/hr, X1, 1 dose, First dose on 06/12/19 at 1750 darbepoetin cricket (ARANESP) Given 06/15/2019 2:21 PM EST 60 mcg Abdominal Tissue syringe 60 mcg 60 mcg, Subcutaneous, X1, 1 dose, First dose on Thu06/15/19 at 1350 darbepoetin cricket (ARANESP) Given 06/15/2019 8:39 PM EST 60 mcg Abdominal Tissue syringe 60 mcg 60 mcg, Subcutaneous, X1, 1 dose, First dose on Thu06/15/19 at 2010 ergocalciferol (DRISDOL, CALCIFEROL, Given 06/19/2019 11:35 AM EST 50,000 Units VITAMIN D) capsule 50,000 Units 50,000 Units, Oral, Q7DAYS, First dose on 06/12/19 at 1030, Until Discontinued Given 06/12/2019 11:04 AM EST 50,000 Units finasteride (PROSCAR) tablet 5 mg Given 06/22/2019 9:32 AM EST 5 mg 5 mg, Oral, DAILY, First dose on 06/11/19 at 1900, Until Discontinued, This medication dosage form should NOT be crushed. Please call the inpatient Pharmacy for more information. [facility] ext. [phone] [place] ext. [phone] [facility] ext. [phone] HAZARDOUS MEDICATION. Use gloves when handling. Handle with care., Given 06/21/2019 9:10 AM EST 5 mg Given 06/20/2019 9:00 AM EST 5 mg furosemide (LASIX) injection 40 mg New Bag 06/14/2019 5:45 PM EST 40 mg 40 mg, Intravenous, NOW, 1 dose, 06/14/19 at 1730 furosemide (LASIX) injection 40 mg Given 06/17/2019 4:37 PM EST 40 mg 40 mg, Intravenous Push, BID DIURETIC, First dose on Thu06/17/19 at 0940, Until Discontinued Given 06/17/2019 10:48 AM EST 40 mg furosemide (LASIX) injection 80 mg Given 06/20/2019 9:01 AM EST 80 mg 80 mg, Intravenous Push, BID DIURETIC, First dose (after last modification) on 06/18/19 at 0900, Until Discontinued Given 06/19/2019 4:19 PM EST 80 mg Given 06/19/2019 8:40 AM EST 80 mg furosemide (LASIX) tablet 120 mg Given 06/22/2019 9:31 AM EST 120 mg 120 mg, Oral, BID DIURETIC, First dose on Thu06/20/19 at 1700, Until Discontinued Given 06/21/2019 5:25 PM EST 120 mg Given 06/21/2019 9:11 AM EST 120 mg guaifenesin (ORGANIDIN-NR) tablet 200 mg Given 06/22/2019 12:49 PM EST 200 mg 200 mg, Oral, QID, First dose on Thu06/13/19 at 1300, Until Discontinued Given 06/22/2019 9:31 AM EST 200 mg Given 06/21/2019 9:11 PM EST 200 mg heparin injection 5000 Given 06/20/2019 6:47 AM 5,000 Units Abdominal Tissue UNIT/ML EST 5,000 Units, Subcutaneous, Q8H (Heparin), 27 doses, First dose on Thu06/11/19 at 2200, Last dose on Thu06/20/19 at 1400 Given 06/19/2019 9:38 PM EST 5,000 Units Abdominal Tissue Given 06/19/2019 1:30 PM EST 5,000 Units Abdominal Tissue hydralazine (APRESOLINE) injection 10 mg Given 06/14/2019 4:30 AM EST 10 mg 10 mg, Intravenous Push, Q6 HRS PRN, 4 doses, Starting Thu06/14/19 at 0423, Until Thu06/22/19 at 1900, SBP > ___, >160/90 hydrALAZINE (APRESOLINE) tablet (1/2x10 mg) 5 Given 06/14/2019 8:45 AM EST 5 mg mg 5 mg, Oral, TID, First dose on Thu06/13/19 at 0920, Until Discontinued Given 06/13/2019 8:16 PM EST 5 mg Given 06/13/2019 4:24 PM EST 5 mg hydrALAZINE (APRESOLINE) tablet 25 mg Given 06/22/2019 9:31 AM EST 25 mg 25 mg, Oral, TID, First dose (after last modification) on Thu06/14/19 at 1600, Until Discontinued Given 06/21/2019 8:59 PM EST 25 mg Given 06/21/2019 5:25 PM EST 25 mg isosorbide MONOnitrate (IMDUR) 24 hour tablet Given 06/22/2019 9:31 AM EST 30 mg 30 mg 30 mg, Oral, DAILY, First dose on Thu06/13/19 at 0920, Until Discontinued, This medication dosage form should NOT be crushed. Please call the inpatient Pharmacy for more information. [facility] ext. [phone] [place] ext. [phone] [facility] ext. [phone] , Given 06/21/2019 9:11 AM EST 30 mg Given 06/20/2019 9:00 AM EST 30 mg LISPRO insulin (RAPID-Acting) Given 06/21/2019 9:00 PM 4 Units Arm - Upper Right RESISTANT Correction Scale Inj EST Subcutaneous, AC/HS, First dose on Thu06/19/19 at 2100, Until Discontinued, Blood Glucose RESISTANT < = 150 0 Units 151-200 4 Units 201-250 8 Units 251-300 12 Units 301-350 16 Units 351-400 20 Units >400 24 Units And Call Saturator, Given 06/21/2019 5:26 PM EST 16 Units Arm - Upper Right Given 06/20/2019 10:27 PM EST 4 Units Arm - Upper Left LISPRO insulin (RAPID-Acting) Given 06/22/2019 12:46 PM 6 Units Abdominal Tissue USUAL Correction Scale Inj EST Subcutaneous, AC/HS, First dose on Thu06/19/19 at 1100, Until Discontinued, Blood Glucose USUAL <=150 0 Units 151-200 2 Units 201-250 4 Units 251-300 6 Units 301-350 8 Units 351-400 10 Units >400 12 Units And Call Saturator Not for IV USE, Given 06/19/2019 8:33 PM EST 4 Units Abdominal Tissue Given 06/19/2019 4:18 PM EST 12 Units Abdominal Tissue magnesium citrate (CITRATE OF MAGNESIUM) Given 06/21/2019 9:34 AM EST 148 mL oral solution 1.745 GM/30ML 148 mL, Oral, X1, 1 dose, First dose on Thu06/21/19 at 0820 magnesium sulfate IV premix 1 g New Bag 06/12/2019 11:04 AM EST 1 g 1 g, Intravenous, Q1 HR, 1 dose, First dose on Thu06/12/19 at 1030 methylPREDNISolone (SOLU-MEDROL) injection 60 Given 06/15/2019 9:44 AM EST 60 mg mg 60 mg, Intravenous Push, Q8 HRS, 9 doses, First dose on Thu06/14/19 at 0940, Last dose on Thu06/17/19 at 0140 Given 06/14/2019 5:45 PM EST 60 mg Given 06/14/2019 8:41 AM EST 60 mg methylPREDNISolone (SOLU-MEDROL) injection 60 Given 06/17/2019 8:53 AM EST 60 mg mg 60 mg, Intravenous Push, Q12 HRS, 9 doses, First dose (after last modification) on Thu06/15/19 at 2150, Last dose on Thu06/19/19 at 2150 Given 06/16/2019 9:44 PM EST 60 mg Given 06/16/2019 9:23 AM EST 60 mg nicotine transdermal Patch applied 06/22/2019 9:30 AM 1 Patch Arm - Upper patch-daily (NICODERM) EST Right topical 7 mg/24 hr 1 Patch 1 Patch (7 mg), Transdermal, DAILY, First dose on Thu06/13/19 at 1300, Until Discontinued, Apply one patch in the morning on hairless skin on upper body. Rotate sites. Remove prior to MRI to avoid david. Please make sure to remove previous patch from site., Patch applied 06/21/2019 9:11 AM EST 1 Patch Arm - Upper Left Patch applied 06/20/2019 9:02 AM EST 1 Patch Arm - Upper Right normal saline bolus 500 mL New Bag 06/11/2019 6:53 PM EST 500 mL 500 mL, Intravenous, BOLUS, 1 dose, 06/11/19 at 1940 oxymetazoline (AFRIN) nasal spray 0.05 % Given 06/12/2019 4:32 AM EST 1 [place] 1 [place], Nasal, Q12 HRS PRN, Starting 06/12/19 at 0035, Until 06/13/19 at 1834, Congestion - 1st line oxymetazoline (AFRIN) nasal spray 0.05 % Given 06/22/2019 9:31 AM EST 1 [place] 1 [place], Nasal, Q12 HRS PRN, Starting 06/13/19 at 1834, Until Thu06/22/19 at 1900, Congestion - 1st line Given 06/16/2019 9:00 PM EST 1 [place] Given 06/16/2019 9:23 AM EST 1 [place] pantoprazole (PROTONIX) injection 40 mg Given 06/22/2019 9:45 AM EST 40 mg 40 mg, Intravenous Push, BID, First dose on 06/18/19 at 0900, Until Discontinued, DO NOT USE BACTERIOSTATIC SALINE FROM STOREROOM!!!! INSTRUCTIONS: Reconstitute the Protonix vial with 10 mL Sodium Chloride prefilled syringe for an approximate final concentration of 4 mg/ml. Mix prior to administration. There is a 2 hour stability once mixed. Administer over a period of 2 minutes. Administer thru a dedicated line or a Y site. Please flush before and after administration. , Given 06/21/2019 8:59 PM EST 40 mg Given 06/21/2019 9:11 AM EST 40 mg polyethylene glycol & electrolytes Given 06/19/2019 4:20 PM EST 4,000 mL (COLYTE, GOLYTELY) oral solution 4,000 mL 4,000 mL, Oral, X1, 1 dose, First dose on 06/19/19 at 1600, *Give 4000 mL of colonic lavage (Colyte) starting at 4 p.m.*Encourage to drink 8 oz every ten minutes. Continue until 4 liters have been consumed and rectal effluent is clear.*Water or clear liquids permitted after colyteNOTE: Patient must drink 2 liters minimum and should be encouraged to finish all 4 liters. IF patient does not take amount of colonic lavage required, DO NOT give enemas in a.m. until you have checked with the doctor., polyethylene glycol (MIRALAX) oral pack 64.005 Given 06/22/2019 9:29 AM EST 34 g g 64.005 g (rounded from 64 g), Oral, DAILY, First dose on Thu06/21/19 at 0900, Until Discontinued Given 06/21/2019 9:11 AM EST 64.005 g Given 06/21/2019 1:16 AM EST 64.005 g predniSONE (DELTASONE) tablet 40 mg Given 06/19/2019 8:40 AM EST 40 mg 40 mg, Oral, DAILY, 3 doses, First dose on Thu06/18/19 at 0900, Last dose on Thu06/20/19 at 0900, Take with food., Given 06/18/2019 1:36 PM EST 40 mg saline (OCEAN) nasal spray 0.65 % 1 [place], Nasal, Q2 HRS PRN, Starting 06/19/19 at 1109, Until Thu06/22/19 at 1900, dry nose, Congestion - 2nd line if no relief 4 hours after administration of 1st line agent sodium bicarbonate 8.4 % 150 mEq in Restarted 06/11/2019 7:50 PM EST 150 mL/hr dextrose 5% 1,000 mL Intravenous, at 150 mL/hr, CONTINUOUS, Starting 06/11/19 at 1950, Until 06/11/19 at 2018 sodium bicarbonate 8.4 % 75 mEq in Rate Verify 06/12/2019 8:15 AM EST 125 mL/hr 1/2 normal saline 1,000 mL Intravenous, at 125 mL/hr, CONTINUOUS, Starting 06/11/19 at 2130, Until 06/12/19 at 0939 New Bag 06/12/2019 6:08 AM EST 125 mL/hr New Bag 06/11/2019 9:12 PM EST 125 mL/hr sodium bicarbonate 8.4 % 75 mEq in Rate Verify 06/13/2019 8:30 AM EST 100 mL/hr 1/2 normal saline 1,000 mL Intravenous, at 100 mL/hr, CONTINUOUS, Starting Thu06/12/19 at 0950, Until Thu06/13/19 at 1421 New Bag 06/13/2019 4:20 AM EST 100 mL/hr New Bag 06/12/2019 5:46 PM EST 100 mL/hr sodium bicarbonate 8.4 % 75 mEq in 1/2 New Bag 06/13/2019 8:18 PM EST 75 mL/hr normal saline 1,000 mL Intravenous, at 75 mL/hr, CONTINUOUS, Starting Thu06/13/19 at 1430, Until Thu06/13/19 at 2209 Rate Change 06/13/2019 3:10 PM EST 75 mL/hr sodium bicarbonate 8.4 % 75 mEq in 1/2 New Bag 06/14/2019 8:41 AM EST 50 mL/hr normal saline 1,000 mL Intravenous, at 50 mL/hr, CONTINUOUS, Starting Thu06/13/19 at 2110, Until Thu06/14/19 at 1126 New 06/13/2019 8:19 PM EST 50 mL/hr sodium bicarbonate tablet 1,300 mg Given 06/21/2019 9:11 AM EST 1,300 mg 1,300 mg, Oral, TID, First dose (after last modification) on Thu06/15/19 at 2100, Until Discontinued Given 06/20/2019 10:10 PM EST 1,300 mg Given 06/20/2019 4:33 PM EST 1,300 mg sodium bicarbonate tablet 650 mg Given 06/15/2019 4:54 PM EST 650 mg 650 mg, Oral, TID, First dose on Thu06/15/19 at 0900, Until Discontinued Given 06/15/2019 8:32 AM EST 650 mg sodium bicarbonate tablet 650 mg Given 06/22/2019 9:31 AM EST 650 mg 650 mg, Oral, TID, First dose (after last modification) on Thu06/21/19 at 1600, Until Discontinued Given 06/21/2019 8:59 PM EST 650 mg Given 06/21/2019 5:25 PM EST 650 mg sodium ferric gluconate complex in sucrose New Bag 06/15/2019 8:39 PM EST 125 mg (FERRLECIT) IV mixture 125 mg 125 mg, Intravenous, X1, 1 dose, First dose on 06/15/19 at 2010, - Serious hypersensitivity reactions, including anaphylactic-type reactions, some of which have been life-threatening and fatal, have been reported in patients receiving parenteral iron therapy. - Have resuscitation equipment and personnel trained in the detection and treatment of anaphylactic-type reactions readily available during administration. - Monitor patients for signs and symptoms of hypersensitivity during administration and for at least 30 minutes after completion of parenteral iron infusion. - May reduce the infusion rate if patient does not tolerate the recommended default infusion rate., Tamsulosin HCl (FLOMAX) capsule 0.4 mg Given 06/22/2019 9:31 AM EST 0.4 mg 0.4 mg, Oral, DAILY, First dose on 06/11/19 at 1900, Until Discontinued, This medication dosage form should NOT be crushed. Please call the inpatient Pharmacy for more information. [facility] ext. [phone] [place] ext. [phone] [facility] ext. [phone] , Given 06/21/2019 9:11 AM EST 0.4 mg Given 06/20/2019 9:00 AM EST 0.4 mg documented in this encounter Insurance Payer Benefit Plan / Subscriber ID Effective Dates Phone Address Type Group [employer] [facility] x[facility]xxx 2016-Present [employer] Name Account Type Relation to Date of Phone Billing Patient Address Kamar Segura Personal/Family 1940 [address] (Home) [facility] [phone] [place] [address] (Work) documented as of this encounter Advance Directives Code Status Date Activated Date Inactivated Comments Full Code 06/11/2019 5:57 PM Does the patient have decision making capacity? Yes Order was discussed with: Patient I discussed all options and patient/surrogate requested and agreed to: Full Code
--- NOTE | 2019-06-30 14:36 | ED ---
Lower Extremity - HPI Summary HPI Summary: 79 male presents to the emergency department today with a CC of bilateral foot pain. Pt states he was here for the same reason yesterday and diagnosed with gout. Pt states we was told to take tylenol for pain, but says it hurts too much to ambulate, and called an ambulance. Pt endorses 10/10 foot pain with decreased range of motion. Pt is looking to be admitted. Pt feels well other smith and denies fever, chest pain, abdominal pain, SOB, rash. - History of Current Complaint Chief Complaint: EDExtremityLower Stated Complaint: FOOT PAIN PER EMS Time Seen by Provider: 06/30/19 14:33 Hx Obtained From: Patient Mechanism Of Injury: Unknown Onset of Pain: Days Onset/Duration: Days Severity Initially: Severe Severity Currently: Severe Pain Intensity: 9 Pain Scale Used: 0-10 Numeric Timing: Constant Character Of Pain: Sharp, Aching Associated Signs And Symptoms: Positive: Swelling. Negative: Redness, Fever, Weakness, Syncope, Abdominal Pain Aggravating Factor(s): Standing, Ambulation, Movement, Weight Bearing, Stairs Alleviating Factor(s): Rest Able to Bear Weight: Yes - Allergies/Home Medications Allergies/Adverse Reactions: Allergies Allergy/AdvReac Type Severity Reaction Status Date / Time cephalexin [From Keflex] AdvReac N/V Verified 06/23/19 16:09 Home Medications: Home Medications Bimatoprost 0.01% OPHTH (NF) [Lumigan 0.01% OPHTH (NF)] 1 drop BOTH EYES BEDTIME 06/30/19 [History Confirmed 06/30/19] Tamsulosin CAP* [Flomax CAP*] 0.4 mg PO DAILY 06/30/19 [History Confirmed ] PMH/Surg Hx/FS Hx/Imm Hx Endocrine/Hematology History: Reports: Hx Anticoagulant Therapy, Hx Blood Transfusions, Hx Diabetes Denies: Hx Thyroid Disease, Hx Unexplained Bleeding Cardiovascular History: Reports: Hx Angina, Hx Congestive Heart Failure, Hx Coronary Artery Disease, Hx Hypercholesterolemia, Hx Hypertension, Hx Myocardial Infarction, Hx Valvular Heart Disease - aortic valve replacement, Other Cardiovascular Problems/Disorders - AORTIC STENOSIS Denies: Hx Auto Implanted Cardiovert Defib, Hx Congenital Heart Disease, Hx Pacemaker/ICD, Hx Peripheral Vascular Disease, Hx Syncope Respiratory History: Reports: Hx Asthma, Hx Chronic Obstructive Pulmonary Disease (COPD), Hx Sleep Apnea - pt states he doesn't wear CPAP anymore Comment Only: Other Respiratory Problems/Disorders - SOB GI History: Denies: Hx Ulcer Comment Only: Other GI Disorders - HERNIA REPAIR History: Reports: Hx Benign Prostatic Hyperplasia, Hx Chronic Renal Failure - CKD stage 3, Hx Renal Disease - RENAL FUNCTION DUE TO DIABETES, Other Problems/Disorders - chronic renal insufficiency Denies: Hx Dialysis Musculoskeletal History: Reports: Hx Back Problems, Hx Gout, Other Musculoskeletal History - leg and foot cramps Denies: Hx Arthritis, Hx Osteoporosis Sensory History: Reports: Hx Contacts or Glasses Denies: Hx Cataracts, Hx Eye Injury, Hx Glaucoma, Hx Deafness, Hx Hearing Aid , Hx Hearing Problem Opthamlomology History: Reports: Hx Contacts or Glasses Denies: Hx Cataracts, Hx Eye Injury, Hx Glaucoma Neurological History: Reports: Hx Transient Ischemic Attacks (TIA) Denies: Hx Dementia, Hx Developmental Delay, Hx Headaches, Hx Migraine, Hx Seizures, Hx Spinal Cord Injury Psychiatric History: Reports: Hx Anxiety Denies: Hx Attention Deficit Hyperactivity Disorder, Hx Eating Disorder, Hx Depression, Hx Panic Disorder, Hx Post Traumatic Stress Disorder, Hx Inpatient Treatment, Hx Community Mental Health Tx, Hx Schizophrenia, Hx Bipolar Disorder , Hx Suicide Attempt, Hx of Violent Episodes Against Others, Hx Substance Abuse , Other Psychiatric Issues/Disorders - Surgical History Surgery Procedure, Year, and Place: ABDOMINAL HERNIA REPAIR, skull fracture in the . Aortic valve replacement September. heart transplant Hx Anesthesia Reactions: No - Immunization History Date of Tetanus Vaccine: unknown Date of Influenza Vaccine: None Infectious Disease History: No Infectious Disease History: Denies: Hx Clostridium Difficile, Hx Hepatitis, Hx Human Immunodeficiency Virus (HIV), Hx of Known/Suspected MRSA, Hx Shingles, Hx Tuberculosis, Hx Known/ Suspected VRE, Hx Known/Suspected VRSA, History Other Infectious Disease, Traveled Outside the [place] in Last 30 Days - Family History Known Family History: Positive: Cardiac Disease, Hypertension Negative: Diabetes - Social History Alcohol Use: None Alcohol Amount: SOCIAL Hx Substance Use: No Substance Use Type: Reports: None Substance Use Comment - Amount & Last Used: pt confused; current substance use is unknown, but no known history Hx Tobacco Use: Yes Smoking Status (MU): Light Every Day Tobacco Smoker Type: Cigars Amount Used/How Often: 1-2 CIGARS/DAY Length of Time of Smoking/Using Tobacco: 57 years Have You Smoked in the Last Year: Yes Review of Systems Constitutional: Negative Eyes: Negative ENT: Negative Cardiovascular: Negative Respiratory: Negative Gastrointestinal: Negative Genitourinary: Negative Positive: Arthralgia, Myalgia, Decreased ROM, Edema Skin: Negative Neurological: Negative Psychological: Normal All Other Systems Reviewed And Are Negative: Yes Physical Exam - Summary Physical Exam Summary: Pt is rude in conversation. Pt has no obvious deformitys or signs of trauma. There is mild swelling noted to the bilateral feet, which is chronic. No evidence of lesions or erythema to the feet. Pt states decreased range of motion due to pain. Triage Information Reviewed: Yes Vital Signs On Initial Exam: Initial Vitals Temp Pulse Resp BP Pulse Ox 98.3 F 75 18 174/67 98 06/30/19 12:41 06/30/19 12:41 06/30/19 12:41 06/30/19 12:41 06/30/19 12:41 Vital Signs Reviewed: Yes Appearance: Positive: Well-Appearing, No Pain Distress, Well-Nourished Skin: Positive: Warm, Skin Color Reflects Adequate Perfusion Eyes: Positive: EOMI, WILLY, Conjunctiva Clear ENT: Positive: Hearing grossly normal Respiratory/Lung Sounds: Positive: Clear to Auscultation, Breath Sounds Present Cardiovascular: Positive: RRR, S1, S2 Abdomen Description: Positive: Nontender, Soft Bowel Sounds: Positive: Present Musculoskeletal: Positive: Edema Left, Edema Right Neurological: Positive: Sensory/Motor Intact, Alert, Oriented to Person Place, Time, Facial Symmetry, Speech Normal Psychiatric: Positive: Normal AVPU Assessment: Alert Procedures - Sedation Patient Received Moderate/Deep Sedation with Procedure: No Diagnostics - Vital Signs Vital Signs Temp Pulse Resp BP Pulse Ox 06/30/19 12:41 98.3 F 75 18 174/67 98 - Laboratory Lab Statement: Any lab studies that have been ordered have been reviewed, and results considered in the medical decision making process. Lower Extremity Course/Dx - Course Course Of Treatment: Pt was evaluated for bilateral foot pain. vitals noted. Pt was given 5-325 percocet and 40mg of prednisone for pain and gout. Pt was able to ambulate after pain medication administered while using a walker. PT refused discharge and stated "I want to be admitted, I came to be admitted." Pt agreed to snf admission. When hospitalist came to admit the patient he refused snf admission and wanted to be discharged. 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 - Diagnoses Differential Diagnosis/HQI/PQRI: Positive: Arthritis, Gout, Sprain, Strain, Tendonitis Provider Diagnoses: Gout Discharge ED - Sign-Out/Discharge Documenting (check all that apply): Patient Departure - Discharge Plan Condition: Stable Disposition: HOME Prescriptions: predniSONE 20 mg TAB [Deltasone 20 MG TAB*] 40 mg PO DAILY #4 tab Patient Education Materials: Gout (ED) Referrals: [facility] [place] [Outside] Romina Bolden MD [Primary Care Provider] - Joan Friend MD [Medical Doctor] - 2 Days Additional Instructions: You were seen in the emergency department today due to pain caused by gout. I have prescribed for you steroids which may be taken to reduce your symptoms. You may also take Tylenol as needed for pain. 650 mg every 6 hours. Please follow-up with your sharepoint net developer for further evaluation and management. Please return to the emergency department immediately if you develop any new or worsening symptoms. We have given a prescription for a walker as this will help you ambulate at home. - Billing Disposition and Condition Condition: STABLE Disposition: Home - Attestation Statements Provider Attestation: I was available for consultation for this patient. I did not evaluate the patient or participate in any medical decision making or disposition decisions unless I am specifically named in the chart as having consulted on the patient. If I have consulted on the patient, please see my own ED note on the patient encounter. Brandy Tyson MD
[2019-06-30] MEDS ORDERED: oxyCODONE/Acetamin 5/325 MG* TAB PO ONE (14:50)
[2019-06-30 18:15] VITALS: BP 168/69
== END 2019-06-30 18:23 | disposition home or self-care (01) ==
LOC: ED 12:39
DX: M10.9 Gout, unspecified (principal); I50.9 Heart failure, unspecified; I25.10 Atherosclerotic heart disease of native coronary artery without angina pectoris; E78.00 Pure hypercholesterolemia, unspecified; I25.2 Old myocardial infarction; Z95.2 Presence of prosthetic heart valve; J44.9 Chronic obstructive pulmonary disease, unspecified; N40.0 Benign prostatic hyperplasia without lower urinary tract symptoms; E11.22 Type 2 diabetes mellitus with diabetic chronic kidney disease; I13.0 Hypertensive heart and chronic kidney disease with heart failure and stage 1 through stage 4 chronic kidney disease, or unspecified chronic kidney disease; N18.3 Chronic kidney disease, stage 3 (moderate); F41.9 Anxiety disorder, unspecified; Z86.73 Personal history of transient ischemic attack (TIA), and cerebral infarction without residual deficits; F17.290 Nicotine dependence, other tobacco product, uncomplicated; Z79.899 Other long term (current) drug therapy; Z88.1 Allergy status to other antibiotic agents
CPT/HCPCS: 99282; A9270-GY; J7512

== ENCOUNTER 2020-01-11 08:14 | Observation (INO) ==
[~2020-01-11 08:14] MED LIST changes: +Buffered Lidocaine 1% SYRIN 1 ml INTRADERM ONE; -Mouth Piece, Nicotine* 1 EACH CARTRIDGE INH ONE; +NS 0.45% 1000 ml BAG 1,000 ML IV SCH
[2020-01-11] MEDS ORDERED: Lidocaine 2% PF 5 ML VIAL ONE (08:35)
[2020-01-11] MEDS ORDERED: Propofol 10 MG/ML 20 ML BTL ONE (08:35)
[2020-01-11] MEDS ORDERED: fentaNYL 100 mcg/2 ml 50 MCG/ML VIAL ONE ×2 (08:48→09:39)
[2020-01-11] MEDS ORDERED: Midazolam 2 mg/2 ml VIAL 1 mg/ml 2 ml VIAL (2 mg) ONE (09:38)
[2020-01-11] MEDS ORDERED: Clindamycin 900 MG/D5W BAG 900 MG/50 ML BAG IVPB ONE (09:39)
[2020-01-11] MEDS ORDERED: Bupivacaine 0.5% SDV PF 30ML VIAL ONE (09:41)
[2020-01-11] MEDS ORDERED: Lidocaine 2% PF 10 ML AMP ONE (09:42)
[2020-01-11] MEDS ORDERED: Lidocaine 1% VIAL 10 MG/ML VIAL ONE ×3 (09:51→11:59)
[2020-01-11] MEDS ORDERED: Heparin 5000 UNITS/ML 1 mL VIAL ONE (09:51)
[2020-01-11] MEDS ORDERED: Bupivacaine 0.25% EPI 200,000 30 ML SDV ONE (09:52)
[2020-01-11] MEDS ORDERED: Calcium CHLORIDE 10% SYRINGE 1 GM/10 ML ONE (10:02)
[2020-01-11] MEDS ORDERED: Propofol 10 mg/ml 100 ML BTL 100 ML ONE (10:02)
[2020-01-11] MEDS ORDERED: Heparin 2 UNITS/ML 1000 mls 1,000 ML IV ONE (10:06)
[2020-01-11] MEDS ORDERED: Naloxone 0.4 mg VIAL 0.4 mg/ml 1 ml VIAL IV PRN (10:54)
[2020-01-11] MEDS ORDERED: Dextrose 50% Syringe 50 ml 25 GM/50 ML SYRINGE IV PUSH PRN ×2 (19:01→19:32)
[2020-01-12] MEDS ORDERED: oxyCODONE/Acetamin 5/325 mg TAB PO PRN (05:33)
[2020-01-12 05:34] VITALS: BP 106/48
== END 2020-01-12 06:30 | disposition home or self-care (01) ==
LOC: OR 08:14 → MED 17:23 → INTOOBSV 17:23
PROVIDERS: ADMIT Surgery; ATTEND Internal Medicine

== ENCOUNTER 2021-02-21 07:09 | Observation (INO) ==
[~2021-02-21 07:09] MED LIST changes: +Famotidine IV 10 MG/ML 2 ml VIAL (20 mg) IV ONE; -NS 0.45% 1000 ml BAG 1,000 ML IV SCH; +NS 0.9% 1000 ml BAG 1,000 ML IV SCH
[2021-02-21] MEDS ORDERED: Heparin *DIALYSIS* ONLY 1,000 UNITS/ML VIAL ONE ×2 (07:16→10:11)
[2021-02-21] MEDS ORDERED: Bupivacaine 0.25% SDV 30 ML ONE (07:17)
[2021-02-21] MEDS ORDERED: Lidocaine 1% VIAL 10 MG/ML VIAL ONE (07:17)
[2021-02-21] MEDS ORDERED: Heparin 2 UNITS/ML 1000 mls 1,000 ML IV ONE (07:17)
[2021-02-21] MEDS ORDERED: Midazolam 2 mg/2 ml VIAL 1 mg/ml 2 ml VIAL (2 mg) ONE (07:24)
[2021-02-21] MEDS ORDERED: Famotidine IV 10 MG/ML 2 ml VIAL (20 mg) ONE (07:24)
[2021-02-21] MEDS ORDERED: fentaNYL 100 mcg/2 ml 50 MCG/ML VIAL ONE (07:24)
[2021-02-21] MEDS ORDERED: ROPIVACAINE 5 MG/ML 30 ML BTL (0.5%) ONE ×2 (07:29→08:19)
[2021-02-21] MEDS ORDERED: Lidocaine 2% w/ EPI 1:200,000 MPF 20 ML SDV VIAL ONE (07:29)
[2021-02-21] MEDS ORDERED: Buffered Lidocaine 1% SYRIN 1 ml INTRADERM ONE (08:00)
[2021-02-21] MEDS ORDERED: Propofol 10 MG/ML 20 ML BTL ONE ×3 (09:28→10:39)
[2021-02-21] MEDS ORDERED: Lidocaine 2% PF 5 ML VIAL ONE (09:28)
[2021-02-21] MEDS ORDERED: Ketamine HCL 50 mg/ml 10 ml VIAL (500 MG) ONE (09:42)
[2021-02-21] MEDS ORDERED: Clindamycin 900 MG/D5W BAG 900 MG/50 ML BAG IVPB ONE (09:47)
[2021-02-21] MEDS ORDERED: Ondansetron 4 mg VIAL 2 MG/ML 2 ml VIAL IV PRN (10:20)
[2021-02-21] MEDS ORDERED: Naloxone 0.4 mg VIAL 0.4 mg/ml 1 ml VIAL IV PRN (10:20)
[2021-02-21] MEDS ORDERED: fentaNYL 100 mcg/2 ml 50 MCG/ML VIAL IV PRN (10:20)
[2021-02-21] MEDS ORDERED: Levalbuterol 0.63MG/3ML NEB UNIT OF USE INH PRN (10:20)
[2021-02-21] MEDS ORDERED: Albuterol HFA INHALER 8 gm MDI INH PRN (15:50)
[2021-02-21] MEDS ORDERED: Latanoprost 0.005% 2.5 ml BTL BOTH EYES SCH (18:00)
[2021-02-21] MEDS: BRINZOLAMID BOTH EYES SCH (20:30)
[2021-02-21] MEDS: BRIMONIDIN OPH BOTH EYES SCH (20:30)
[2021-02-22 07:18] VITALS: BP 153/54
[2021-02-22] MEDS ORDERED: SPIRIVA Respimat (tiotropium) 2.5 mcg/inh Inhaler INH SCH (09:00)
[2021-02-22] MEDS ORDERED: Fluticasone NASAL SPRAY 50MCG 16 gm SPRAY BTL INTRANASAL SCH (09:00)
[2021-02-22] MEDS ORDERED: DARIFENACIN 15 MG PO SCH (09:00)
[2021-02-22] MEDS ORDERED: Insulin GLARGINE 100 un/ml 10 ml VIAL SUBCUT SCH (09:00)
[2021-02-22] MEDS: BRIMONIDIN OPH BOTH EYES SCH (09:25)
[2021-02-22] MEDS: BRINZOLAMID BOTH EYES SCH (09:25)
== END 2021-02-22 10:30 | disposition home or self-care (01) ==
LOC: SSU 07:09 → OR 07:09
PROVIDERS: ADMIT Surgery; ATTEND Surgery
PROC: O.GEAVF (2021-02-21 07:30)

== ENCOUNTER 2021-03-11 15:28 | Observation (INO) ==
[~2021-03-11 15:28] MED LIST changes: -Buffered Lidocaine 1% SYRIN 1 ml INTRADERM ONE; -Famotidine IV 10 MG/ML 2 ml VIAL (20 mg) IV ONE; +Heparin 2 UNITS/ML 1000 mls 1,000 ML IV ONE; +Heparin 5000 UNITS/ML 1 mL VIAL ONE; +Iohexol 180 (CONTRAST) 20 ML SDV IV ONE; +Lidocaine 1% VIAL 10 MG/ML VIAL ONE; +Midazolam 2 mg/2 ml VIAL 1 mg/ml 2 ml VIAL (2 mg) ONE; -NS 0.9% 1000 ml BAG 1,000 ML IV SCH; +fentaNYL 100 mcg/2 ml 50 MCG/ML VIAL ONE
[2021-03-11] MEDS ORDERED: Buffered Lidocaine 1% SYRIN 1 ml INTRADERM ONE (16:01)
[2021-03-11] MEDS ORDERED: Clindamycin 900 MG/D5W BAG 900 MG/50 ML BAG IVPB ONE (16:30)
[2021-03-11] MEDS ORDERED: Propofol 10 MG/ML 20 ML BTL ONE (17:00)
[2021-03-11] MEDS ORDERED: Iohexol 180 (CONTRAST) 20 ML SDV IV ONE (17:24)
[2021-03-11] MEDS ORDERED: Albuterol HFA INHALER 8 gm MDI INH PRN (20:29)
[2021-03-11] MEDS ORDERED: Latanoprost 0.005% 2.5 ml BTL BOTH EYES SCH (21:00)
[2021-03-11] MEDS ORDERED: BRINZOLAMID BOTH EYES SCH (21:00)
[2021-03-11] MEDS ORDERED: BRIMONIDIN OPH BOTH EYES SCH (21:00)
[2021-03-12 08:10] VITALS: BP 150/73
[2021-03-12] MEDS ORDERED: SPIRIVA Respimat (tiotropium) 2.5 mcg/inh Inhaler INH SCH (09:00)
[2021-03-12] MEDS ORDERED: CMCS: Darifenacin 15 mg ER TAB (NF) PO SCH (09:00)
[2021-03-12] MEDS ORDERED: Fluticasone NASAL SPRAY 50MCG 16 gm SPRAY BTL INTRANASAL SCH (09:00)
[2021-03-12] MEDS ORDERED: Insulin GLARGINE 100 un/ml 10 ml VIAL SUBCUT SCH (09:00)
== END 2021-03-12 11:30 | disposition home or self-care (01) ==
LOC: SSU 15:28 → OR 15:28
PROVIDERS: ADMIT Internal Medicine; ATTEND Internal Medicine

== ENCOUNTER 2021-03-22 17:20 | Inpatient (IN) ==
[2021-03-22 20:08] LABS: ABS Basophils 0.1 10^3/ul (0-0.2); ABS Eosinophils 0.1 10^3/ul (0-0.6); ABS Lymphocytes 0.8 10^3/ul (1.0-4.8); ABS Monocytes 0.6 10^3/ul (0-0.8); ABS Neutrophils 3.7 10^3/ul (1.5-7.7); Eosinophil % 2.9 %; Hematocrit 29 % (42-52); Hemoglobin 9.7 g/dL (14.0-18.0); Lymphocyte % 14.7 %; Mean Corpuscular HGB Conc 34 g/dL (31-36); Mean Corpuscular Hemoglobin 34 pg (27-31); Mean Corpuscular Volume 100 fL (80-94); Mean Platelet Volume 8.1 fL (7.4-10.4); Platelet Count 268 10^3/uL (150-450); Red Blood Count 2.89 10^6 /uL (4.18-5.48); Red Cell Distribution Width 16 % (10-15); White Blood Count 5.2 10^3/uL (3.5-10.8)
[2021-03-22 20:54] LABS: Albumin 3.9 g/dL (3.2-5.2); Albumin/Globulin Ratio 1.4 (1-3); Calcium 8.6 mg/dL (8.6-10.3); EGFR African American 17.3 (>60); EGFR Non-African American 14.3 (>60); Globulin 2.8 g/dL (2-4); Potassium 3.9 mmol/L (3.5-5.0); Total Bilirubin 0.5 mg/dL (0.2-1.0); Total Protein 6.7 g/dL (6.4-8.9)
[2021-03-22] MEDS ORDERED: Al Hydrox/Mg Hydrox/Simet LIQ 30 ML UDC PO PRN (22:13)
[2021-03-22] MEDS ORDERED: Albuterol HFA INHALER 8 gm MDI INH PRN (22:17)
[2021-03-22 22:31] LABS: Rapid COVID-19 Molecular Undetected (Undetected)
[2021-03-22] MEDS ORDERED: Warfarin per PHARMACY **NOTE FOLLOW UP SCH (23:00)
[2021-03-22] MEDS: Enoxaparin 60 MG/0.6 ML SYR SUBCUT SCH (23:05)
[2021-03-23] MEDS ORDERED: Aspirin EC 81 mg TAB.EC (enteric coated) ONE (08:58)
[2021-03-23] MEDS: Aspirin EC 81 mg TAB.EC (enteric coated) PO SCH (09:07)
[2021-03-23 09:32] LABS: INR 1.12 (0.86-1.15)
[2021-03-23] MEDS: Fluticasone NASAL SPRAY 50MCG 16 gm SPRAY BTL INTRANASAL SCH ×2 (10:12→10:15)
[2021-03-23] MEDS: SPIRIVA Respimat (tiotropium) 2.5 mcg/inh Inhaler INH SCH (10:13)
[2021-03-23] MEDS: BRIMONIDIN OPH BOTH EYES SCH ×3 (15:19→22:42)
[2021-03-23] MEDS: BRINZOLAMID BOTH EYES SCH ×3 (15:19→22:42)
[2021-03-23] MEDS: Enoxaparin 60 MG/0.6 ML SYR SUBCUT SCH (20:59)
[2021-03-24] MEDS: Fluticasone NASAL SPRAY 50MCG 16 gm SPRAY BTL INTRANASAL SCH ×2 (04:21→21:41)
[2021-03-24] MEDS: SPIRIVA Respimat (tiotropium) 2.5 mcg/inh Inhaler INH SCH (07:51)
[2021-03-24] MEDS: BRINZOLAMID BOTH EYES SCH ×3 (08:07→21:40)
[2021-03-24] MEDS: BRIMONIDIN OPH BOTH EYES SCH ×3 (08:07→21:40)
[2021-03-24] MEDS: Aspirin EC 81 mg TAB.EC (enteric coated) PO SCH (09:26)
[2021-03-24 10:13] LABS: INR 1.05 (0.86-1.15)
[2021-03-24 15:38] LABS: ABS Basophils 0.1 10^3/ul (0-0.2); ABS Eosinophils 0.2 10^3/ul (0-0.6); ABS Lymphocytes 0.7 10^3/ul (1.0-4.8); ABS Monocytes 0.5 10^3/ul (0-0.8); ABS Neutrophils 3.3 10^3/ul (1.5-7.7); Eosinophil % 3.4 %; Hematocrit 28 % (42-52); Hemoglobin 9.4 g/dL (14.0-18.0); Lymphocyte % 15.5 %; Mean Corpuscular HGB Conc 34 g/dL (31-36); Mean Corpuscular Hemoglobin 34 pg (27-31); Mean Corpuscular Volume 100 fL (80-94); Mean Platelet Volume 7.9 fL (7.4-10.4); Nucleated Red Blood Cells % 0.1; Platelet Count 240 10^3/uL (150-450); Red Cell Distribution Width 16 % (10-15); White Blood Count 4.7 10^3/uL (3.5-10.8)
[2021-03-24 15:55] LABS: EGFR African American 8.5 (>60)
[2021-03-24] MEDS ORDERED: Warfarin DAILY REMINDER **NOTE FOLLOW UP SCH (17:00)
[2021-03-24] MEDS ORDERED: Iodixanol (CONTRAST) 320 MG/ML 100 ML SDV IV ONE (17:20)
[2021-03-24] MEDS ORDERED: Heparin DRIP 25,000 UNITS BAG 25,000 UNITS/500 ML BAG IV SCH (21:00)
[2021-03-24] MEDS ORDERED: Heparin 5000 UNITS/ML 1 mL VIAL IV SCH ×2 (21:00)
[2021-03-25 04:36] LABS: ABS Basophils 0.1 10^3/ul (0-0.2); ABS Eosinophils 0.2 10^3/ul (0-0.6); ABS Monocytes 0.5 10^3/ul (0-0.8); ABS Neutrophils 3.1 10^3/ul (1.5-7.7); Eosinophil % 4.1 %; Hematocrit 28 % (42-52); Hemoglobin 9.5 g/dL (14.0-18.0); Lymphocyte % 20.1 %; Mean Corpuscular HGB Conc 34 g/dL (31-36); Mean Corpuscular Hemoglobin 34 pg (27-31); Mean Corpuscular Volume 100 fL (80-94); Mean Platelet Volume 7.5 fL (7.4-10.4); Platelet Count 227 10^3/uL (150-450); Red Blood Count 2.78 10^6 /uL (4.18-5.48); Red Cell Distribution Width 16 % (10-15); White Blood Count 4.9 10^3/uL (3.5-10.8)
[2021-03-25 04:50] LABS: EGFR African American 10.1 (>60); EGFR Non-African American 8.4 (>60)
[2021-03-25 04:53] LABS: INR 1.12 (0.86-1.15)
[2021-03-25 05:05] LABS: Potassium 5.8 mmol/L (3.5-5.0)
[2021-03-25] MEDS: SPIRIVA Respimat (tiotropium) 2.5 mcg/inh Inhaler INH SCH (07:34)
[2021-03-25] MEDS ORDERED: PAIN RELIEVING RUB (MENTHOL/SALICYLATE) 1 APPLIC TUBE TOPICAL PRN (09:54)
[2021-03-25] MEDS: BRIMONIDIN OPH BOTH EYES SCH ×2 (14:18→20:17)
[2021-03-25] MEDS: BRINZOLAMID BOTH EYES SCH ×2 (14:18→20:17)
[2021-03-25] MEDS: Aspirin EC 81 mg TAB.EC (enteric coated) PO SCH (15:38)
[2021-03-25] MEDS: Fluticasone NASAL SPRAY 50MCG 16 gm SPRAY BTL INTRANASAL SCH ×2 (15:43→20:17)
[2021-03-25] MEDS: Nicotine GUM 4MG FRUIT FLAVOR PO PRN (22:55)
[2021-03-26 06:56] LABS: Hematocrit 25 % (42-52); Hemoglobin 8.6 g/dL (14.0-18.0); Mean Corpuscular HGB Conc 34 g/dL (31-36); Mean Corpuscular Hemoglobin 34 pg (27-31); Mean Corpuscular Volume 100 fL (80-94); Mean Platelet Volume 7.3 fL (7.4-10.4); Platelet Count 226 10^3/uL (150-450); Red Blood Count 2.54 10^6 /uL (4.18-5.48); Red Cell Distribution Width 16 % (10-15); White Blood Count 3.9 10^3/uL (3.5-10.8)
[2021-03-26 07:15] LABS: Calcium 8.8 mg/dL (8.6-10.3); Magnesium 2.1 mg/dL (1.9-2.7)
[2021-03-26] MEDS: SPIRIVA Respimat (tiotropium) 2.5 mcg/inh Inhaler INH SCH (07:26)
[2021-03-26 07:30] LABS: Potassium 5.2 mmol/L (3.5-5.0)
[2021-03-26] MEDS: Pentafluoroprop/Tetrafluoro(NF) 1 SPRAY TOP.SPRAY TOPICAL PRN (09:29)
[2021-03-26] MEDS: Heparin 1,000 UNIT/ML 10 ml (10,000 UNITS) CATHLAB/DIALYSIS DIALYSIS ONE ×3 (09:33→11:31)
[2021-03-26] MEDS: Fluticasone NASAL SPRAY 50MCG 16 gm SPRAY BTL INTRANASAL SCH ×2 (13:59→20:44)
[2021-03-26] MEDS: Aspirin EC 81 mg TAB.EC (enteric coated) PO SCH (14:02)
[2021-03-26] MEDS: BRIMONIDIN OPH BOTH EYES SCH ×2 (14:03→20:45)
[2021-03-26] MEDS: BRINZOLAMID BOTH EYES SCH ×2 (14:03→20:45)
[2021-03-27 06:37] LABS: Hematocrit 26 % (42-52); Hemoglobin 8.5 g/dL (14.0-18.0); Mean Corpuscular HGB Conc 34 g/dL (31-36); Mean Corpuscular Hemoglobin 34 pg (27-31); Mean Corpuscular Volume 102 fL (80-94); Mean Platelet Volume 8.5 fL (7.4-10.4); Platelet Count 227 10^3/uL (150-450); Red Blood Count 2.51 10^6 /uL (4.18-5.48); Red Cell Distribution Width 17 % (10-15); White Blood Count 4.2 10^3/uL (3.5-10.8)
[2021-03-27 07:12] LABS: Calcium 8.9 mg/dL (8.6-10.3); Potassium 4.5 mmol/L (3.5-5.0)
[2021-03-27] MEDS ORDERED: Heparin 1,000 UNIT/ML 10 ml (10,000 UNITS) CATHLAB/DIALYSIS DIALYSIS ONE ×2 (08:00→09:00)
[2021-03-27] MEDS: SPIRIVA Respimat (tiotropium) 2.5 mcg/inh Inhaler INH SCH (08:09)
[2021-03-27] MEDS: Pentafluoroprop/Tetrafluoro(NF) 1 SPRAY TOP.SPRAY TOPICAL PRN (09:50)
[2021-03-27] MEDS ORDERED: Heparin 1,000 UNIT/ML 10 ml (10,000 UNITS) CATHLAB/DIALYSIS DIALYSIS SCH (11:00)
[2021-03-27] MEDS: Aspirin EC 81 mg TAB.EC (enteric coated) PO SCH (11:34)
[2021-03-27] MEDS: BRIMONIDIN OPH BOTH EYES SCH ×3 (11:36→19:11)
[2021-03-27] MEDS: BRINZOLAMID BOTH EYES SCH ×3 (11:36→19:11)
[2021-03-27] MEDS: Fluticasone NASAL SPRAY 50MCG 16 gm SPRAY BTL INTRANASAL SCH ×2 (11:37→19:16)
[2021-03-27] MEDS: Polyethylene Glycol 3350 17 GM PACKET PO SCH (13:39)
[2021-03-28] MEDS: Polyethylene Glycol 3350 17 GM PACKET PO SCH (07:57)
[2021-03-28] MEDS: Aspirin EC 81 mg TAB.EC (enteric coated) PO SCH (07:58)
[2021-03-28] MEDS: SPIRIVA Respimat (tiotropium) 2.5 mcg/inh Inhaler INH SCH (08:10)
[2021-03-28] MEDS: BRINZOLAMID BOTH EYES SCH ×4 (13:34→21:27)
[2021-03-28] MEDS: BRIMONIDIN OPH BOTH EYES SCH ×4 (13:34→21:27)
[2021-03-28] MEDS: Fluticasone NASAL SPRAY 50MCG 16 gm SPRAY BTL INTRANASAL SCH ×2 (13:36→21:31)
[2021-03-29] MEDS: Heparin 1,000 UNIT/ML 10 ml (10,000 UNITS) CATHLAB/DIALYSIS DIALYSIS ONE ×3 (07:17→09:04)
[2021-03-29] MEDS: SPIRIVA Respimat (tiotropium) 2.5 mcg/inh Inhaler INH SCH (08:19)
[2021-03-29] MEDS: Fluticasone NASAL SPRAY 50MCG 16 gm SPRAY BTL INTRANASAL SCH ×2 (09:00→20:07)
[2021-03-29] MEDS: BRIMONIDIN OPH BOTH EYES SCH ×3 (11:05→19:57)
[2021-03-29] MEDS: BRINZOLAMID BOTH EYES SCH ×3 (11:05→19:57)
[2021-03-29] MEDS ORDERED: Heparin 1,000 UNIT/ML 10 ml (10,000 UNITS) CATHLAB/DIALYSIS DIALYSIS PRN (11:28)
[2021-03-29] MEDS: Polyethylene Glycol 3350 17 GM PACKET PO SCH (11:49)
[2021-03-29] MEDS: Aspirin EC 81 mg TAB.EC (enteric coated) PO SCH (11:49)
[2021-03-30] MEDS: SPIRIVA Respimat (tiotropium) 2.5 mcg/inh Inhaler INH SCH (07:38)
[2021-03-30 08:36] LABS: Hematocrit 26 % (42-52); Hemoglobin 8.7 g/dL (14.0-18.0); Mean Corpuscular HGB Conc 34 g/dL (31-36); Mean Corpuscular Hemoglobin 34 pg (27-31); Mean Corpuscular Volume 100 fL (80-94); Mean Platelet Volume 7.5 fL (7.4-10.4); Platelet Count 281 10^3/uL (150-450); Red Blood Count 2.57 10^6 /uL (4.18-5.48); Red Cell Distribution Width 16 % (10-15); White Blood Count 4.8 10^3/uL (3.5-10.8)
[2021-03-30 08:52] LABS: Calcium 9.1 mg/dL (8.6-10.3); Magnesium 2.2 mg/dL (1.9-2.7); Potassium 4.8 mmol/L (3.5-5.0)
[2021-03-30] MEDS: Aspirin EC 81 mg TAB.EC (enteric coated) PO SCH (09:48)
[2021-03-30] MEDS: BRIMONIDIN OPH BOTH EYES SCH ×3 (09:50→21:02)
[2021-03-30] MEDS: BRINZOLAMID BOTH EYES SCH ×3 (09:50→21:02)
[2021-03-30] MEDS: Fluticasone NASAL SPRAY 50MCG 16 gm SPRAY BTL INTRANASAL SCH ×2 (09:50→21:05)
[2021-03-30] MEDS: Polyethylene Glycol 3350 17 GM PACKET PO SCH (09:53)
[2021-03-30] MEDS ORDERED: Magnesium Hydroxide LIQ 30 ML UDC PO PRN (20:09)
[2021-03-30] MEDS ORDERED: Senna TAB 8.6 mg TAB PO PRN (20:09)
[2021-03-31 05:57] LABS: ABS Eosinophils 0.2 10^3/ul (0-0.6); ABS Lymphocytes 0.9 10^3/ul (1.0-4.8); ABS Monocytes 0.5 10^3/ul (0-0.8); ABS Neutrophils 3.3 10^3/ul (1.5-7.7); Eosinophil % 3.2 %; Hematocrit 24 % (42-52); Hemoglobin 8.3 g/dL (14.0-18.0); Lymphocyte % 18.6 %; Mean Corpuscular HGB Conc 34 g/dL (31-36); Mean Corpuscular Hemoglobin 35 pg (27-31); Mean Corpuscular Volume 101 fL (80-94); Mean Platelet Volume 7.7 fL (7.4-10.4); Platelet Count 276 10^3/uL (150-450); Red Blood Count 2.42 10^6 /uL (4.18-5.48); Red Cell Distribution Width 17 % (10-15); White Blood Count 4.9 10^3/uL (3.5-10.8)
[2021-03-31 06:07] LABS: Calcium 8.6 mg/dL (8.6-10.3); Magnesium 2.4 mg/dL (1.9-2.7); Phosphorus 3.4 mg/dL (2.5-5.0)
[2021-03-31 06:10] LABS: Potassium 5.9 mmol/L (3.5-5.0)
[2021-03-31] MEDS ORDERED: SODIUM ZIRCONIUM CYCLOSILICATE 10 GM PACKET PO ONE (06:13)
[2021-03-31] MEDS: SPIRIVA Respimat (tiotropium) 2.5 mcg/inh Inhaler INH SCH (07:33)
[2021-03-31] MEDS: Polyethylene Glycol 3350 17 GM PACKET PO SCH (10:28)
[2021-03-31] MEDS: Aspirin EC 81 mg TAB.EC (enteric coated) PO SCH (10:34)
[2021-03-31] MEDS: Fluticasone NASAL SPRAY 50MCG 16 gm SPRAY BTL INTRANASAL SCH ×2 (10:38→20:59)
[2021-03-31] MEDS: BRINZOLAMID BOTH EYES SCH ×3 (10:45→21:00)
[2021-03-31] MEDS: BRIMONIDIN OPH BOTH EYES SCH ×3 (10:45→21:00)
[2021-03-31 12:12] LABS: Potassium 5.1 mmol/L (3.5-5.0)
[2021-03-31] MEDS: Senna TAB 8.6 mg TAB PO SCH (20:59)
[2021-04-01 05:59] LABS: Calcium 8.8 mg/dL (8.6-10.3); Magnesium 2.4 mg/dL (1.9-2.7)
[2021-04-01 06:07] LABS: Potassium 5.7 mmol/L (3.5-5.0)
[2021-04-01] MEDS: Nicotine GUM 4MG FRUIT FLAVOR PO PRN (06:20)
[2021-04-01] MEDS ORDERED: Heparin *DIALYSIS* ONLY 1,000 UNITS/ML VIAL DIALYSIS ONE (07:14)
[2021-04-01] MEDS: SPIRIVA Respimat (tiotropium) 2.5 mcg/inh Inhaler INH SCH (07:31)
[2021-04-01] MEDS ORDERED: Heparin 1,000 UNIT/ML 10 ml (10,000 UNITS) CATHLAB/DIALYSIS DIALYSIS PRN (07:31)
[2021-04-01] MEDS ORDERED: Heparin 1,000 UNIT/ML 10 ml (10,000 UNITS) CATHLAB/DIALYSIS DIALYSIS ONE (08:00)
[2021-04-01] MEDS: Pentafluoroprop/Tetrafluoro(NF) 1 SPRAY TOP.SPRAY TOPICAL PRN (08:05)
[2021-04-01] MEDS: Heparin 1,000 UNIT/ML 10 ml (10,000 UNITS) CATHLAB/DIALYSIS DIALYSIS PRN ×2 (09:26→10:28)
[2021-04-01] MEDS: Aspirin EC 81 mg TAB.EC (enteric coated) PO SCH (13:03)
[2021-04-01] MEDS: Polyethylene Glycol 3350 17 GM PACKET PO SCH (13:07)
[2021-04-01] MEDS: BRIMONIDIN OPH BOTH EYES SCH ×2 (13:14→20:29)
[2021-04-01] MEDS: BRINZOLAMID BOTH EYES SCH ×2 (13:14→20:29)
[2021-04-01] MEDS: Fluticasone NASAL SPRAY 50MCG 16 gm SPRAY BTL INTRANASAL SCH ×2 (13:14→20:27)
[2021-04-01] MEDS: Senna TAB 8.6 mg TAB PO SCH (20:29)
[2021-04-02 06:23] LABS: Magnesium 2.2 mg/dL (1.9-2.7); Potassium 4.8 mmol/L (3.5-5.0)
[2021-04-02] MEDS: SPIRIVA Respimat (tiotropium) 2.5 mcg/inh Inhaler INH SCH (08:24)
[2021-04-02] MEDS: Aspirin EC 81 mg TAB.EC (enteric coated) PO SCH (08:32)
[2021-04-02] MEDS: Polyethylene Glycol 3350 17 GM PACKET PO SCH (08:34)
[2021-04-02] MEDS: Fluticasone NASAL SPRAY 50MCG 16 gm SPRAY BTL INTRANASAL SCH ×2 (08:51→21:25)
[2021-04-02] MEDS: BRIMONIDIN OPH BOTH EYES SCH ×3 (09:37→21:25)
[2021-04-02] MEDS: BRINZOLAMID BOTH EYES SCH ×3 (09:37→21:25)
[2021-04-02] MEDS: Senna TAB 8.6 mg TAB PO SCH (21:24)
[2021-04-03 06:04] LABS: Magnesium 2.5 mg/dL (1.9-2.7)
[2021-04-03 06:10] LABS: Potassium 5.3 mmol/L (3.5-5.0)
[2021-04-03] MEDS ORDERED: Heparin 1,000 UNIT/ML 10 ml (10,000 UNITS) CATHLAB/DIALYSIS DIALYSIS PRN ×2 (07:17→12:26)
[2021-04-03] MEDS ORDERED: Heparin 1,000 UNIT/ML 10 ml (10,000 UNITS) CATHLAB/DIALYSIS DIALYSIS ONE (08:00)
[2021-04-03] MEDS: SPIRIVA Respimat (tiotropium) 2.5 mcg/inh Inhaler INH SCH (09:29)
[2021-04-03] MEDS: Pentafluoroprop/Tetrafluoro(NF) 1 SPRAY TOP.SPRAY TOPICAL PRN (09:30)
[2021-04-03] MEDS: Aspirin EC 81 mg TAB.EC (enteric coated) PO SCH (14:39)
[2021-04-03] MEDS: Polyethylene Glycol 3350 17 GM PACKET PO SCH (14:41)
[2021-04-03] MEDS: Fluticasone NASAL SPRAY 50MCG 16 gm SPRAY BTL INTRANASAL SCH ×2 (14:41→20:28)
[2021-04-03] MEDS: BRIMONIDIN OPH BOTH EYES SCH ×3 (14:41→20:30)
[2021-04-03] MEDS: BRINZOLAMID BOTH EYES SCH ×3 (14:41→20:30)
[2021-04-03] MEDS: Senna TAB 8.6 mg TAB PO SCH (19:55)
[2021-04-04 05:48] LABS: Calcium 8.5 mg/dL (8.6-10.3); Potassium 4.4 mmol/L (3.5-5.0)
[2021-04-04] MEDS: SPIRIVA Respimat (tiotropium) 2.5 mcg/inh Inhaler INH SCH (07:29)
[2021-04-04] MEDS: Aspirin EC 81 mg TAB.EC (enteric coated) PO SCH (08:53)
[2021-04-04] MEDS: Fluticasone NASAL SPRAY 50MCG 16 gm SPRAY BTL INTRANASAL SCH (08:58)
[2021-04-04] MEDS: Polyethylene Glycol 3350 17 GM PACKET PO SCH (08:58)
[2021-04-04] MEDS: BRINZOLAMID BOTH EYES SCH ×2 (08:58→13:41)
[2021-04-04] MEDS: BRIMONIDIN OPH BOTH EYES SCH ×2 (08:58→13:41)
[2021-04-04 18:10] VITALS: BP 119/83
[2021-04-07] MEDS ORDERED: Insulin GLARGINE 100 un/ml 10 ml VIAL SUBCUT SCH (20:00)
== END 2021-04-04 19:15 | disposition home health service (06) | DRG 252 ==
LOC: ED 17:20 → EDHOLD 17:20 → SUATTDRO 22:13 → MEDTELE 03-23 13:56 → SUATTDRO 03-23 16:00
PROVIDERS: ADMIT Hospitalist; ATTEND Internal Medicine

== ENCOUNTER 2021-04-06 17:01 | Inpatient (IN) ==
[2021-04-06] MEDS ORDERED: Lactated Ringers 1000 ml BAG 1,000 ML IV ONE (17:43)
[2021-04-06 19:33] LABS: ABS Basophils 0.1 10^3/ul (0-0.2); ABS Eosinophils 0.1 10^3/ul (0-0.6); ABS Neutrophils 5.4 10^3/ul (1.5-7.7); Eosinophil % 1.2 %; Hematocrit 23 % (42-52); Hemoglobin 7.9 g/dL (14.0-18.0); Lymphocyte % 13.4 %; Mean Corpuscular HGB Conc 34 g/dL (31-36); Mean Corpuscular Hemoglobin 34 pg (27-31); Mean Corpuscular Volume 100 fL (80-94); Mean Platelet Volume 7.5 fL (7.4-10.4); Platelet Count 292 10^3/uL (150-450); Red Blood Count 2.32 10^6 /uL (4.18-5.48); Red Cell Distribution Width 17 % (10-15); White Blood Count 7.6 10^3/uL (3.5-10.8)
[2021-04-06] MEDS ORDERED: HYDROcodone/ACETAMIN 5/325 mg TAB PO ONE (19:36)
[2021-04-06 19:51] LABS: Albumin 3.9 g/dL (3.2-5.2); Albumin/Globulin Ratio 1.3 (1-3); Calcium 8.8 mg/dL (8.6-10.3); Globulin 3.1 g/dL (2-4); Magnesium 2.4 mg/dL (1.9-2.7); Phosphorus 4.7 mg/dL (2.5-5.0); Potassium 4.4 mmol/L (3.5-5.0); Total Bilirubin 0.5 mg/dL (0.2-1.0)
[2021-04-07] MEDS ORDERED: Albuterol HFA INHALER 8 gm MDI INH PRN (00:50)
[2021-04-07] MEDS ORDERED: GUAIFENESIN 1200 MG PO SCH (01:00)
[2021-04-07 01:59] LABS: Rapid COVID-19 Molecular Undetected (Undetected)
[2021-04-07] MEDS ORDERED: Heparin 5000 UNITS/ML 1 mL VIAL SUBCUT SCH (06:00)
[2021-04-07 06:54] LABS: ABS Eosinophils 0.2 10^3/ul (0-0.6); ABS Lymphocytes 0.6 10^3/ul (1.0-4.8); ABS Monocytes 0.4 10^3/ul (0-0.8); ABS Neutrophils 4.1 10^3/ul (1.5-7.7); Eosinophil % 2.8 %; Hematocrit 23 % (42-52); Hemoglobin 7.7 g/dL (14.0-18.0); Lymphocyte % 10.6 %; Mean Corpuscular HGB Conc 34 g/dL (31-36); Mean Corpuscular Hemoglobin 34 pg (27-31); Mean Corpuscular Volume 101 fL (80-94); Mean Platelet Volume 7.4 fL (7.4-10.4); Platelet Count 272 10^3/uL (150-450); Red Blood Count 2.25 10^6 /uL (4.18-5.48); Red Cell Distribution Width 16 % (10-15); White Blood Count 5.3 10^3/uL (3.5-10.8)
[2021-04-07 07:08] LABS: Calcium 8.3 mg/dL (8.6-10.3); Potassium 4.6 mmol/L (3.5-5.0)
[2021-04-07] MEDS: SPIRIVA Respimat (tiotropium) 2.5 mcg/inh Inhaler INH SCH (07:47)
[2021-04-07] MEDS: Aspirin EC 81 mg TAB.EC (enteric coated) PO SCH (12:33)
[2021-04-07] MEDS: CMC:LoraTADine 10 mg TAB (NF) PO SCH (12:34)
[2021-04-07] MEDS: DARIFENACIN 15 MG PO SCH (12:35)
[2021-04-07] MEDS: Fluticasone NASAL SPRAY 50MCG 16 gm SPRAY BTL INTRANASAL SCH (12:36)
[2021-04-07] MEDS: Insulin GLARGINE 100 un/ml 10 ml VIAL SUBCUT SCH (12:37)
[2021-04-07] MEDS: Brinzolamid/Brimonidin OPH(NF) 1 DROP BTL BOTH EYES SCH ×3 (12:41→20:19)
[2021-04-07] MEDS: Nicotine GUM 4MG FRUIT FLAVOR PO PRN (14:22)
[2021-04-07] MEDS: Latanoprost 0.005% 2.5 ml BTL BOTH EYES SCH (21:01)
[2021-04-08 05:15] LABS: Hematocrit 19 % (42-52); Hemoglobin 6.6 g/dL (14.0-18.0); Mean Corpuscular HGB Conc 34 g/dL (31-36); Mean Corpuscular Hemoglobin 34 pg (27-31); Mean Corpuscular Volume 99 fL (80-94); Mean Platelet Volume 7.6 fL (7.4-10.4); Platelet Count 255 10^3/uL (150-450); Red Blood Count 1.96 10^6 /uL (4.18-5.48); Red Cell Distribution Width 16 % (10-15); White Blood Count 5.6 10^3/uL (3.5-10.8)
[2021-04-08 05:34] LABS: Anion Gap 13 mmol/L (2-11); Blood Urea Nitrogen 75 mg/dL (6-24); CO2 Carbon Dioxide 26 mmol/L (22-32); Calcium 7.9 mg/dL (8.6-10.3); Chloride 92 mmol/L (101-111); Glucose 167 mg/dL (70-100); Magnesium 2.2 mg/dL (1.9-2.7); Potassium 4.4 mmol/L (3.5-5.0); Sodium 131 mmol/L (135-145)
[2021-04-08 05:35] LABS: % Iron Saturation 13 % (15-55); Iron 33 ug/dL (50-212); Total Iron Binding Capacity 251 mcg/dL (250-450); Transferrin 179 mg/dL (203-362); Unsaturated Iron Binding < 236 ug/dL
[2021-04-08 05:54] LABS: Ferritin 645.5 ng/mL (24-336)
[2021-04-08] MEDS: SPIRIVA Respimat (tiotropium) 2.5 mcg/inh Inhaler INH SCH (08:25)
[2021-04-08] MEDS: Fluticasone NASAL SPRAY 50MCG 16 gm SPRAY BTL INTRANASAL SCH (08:59)
[2021-04-08] MEDS: DARIFENACIN 15 MG PO SCH (08:59)
[2021-04-08] MEDS ORDERED: Heparin 1,000 UNIT/ML 10 ml (10,000 UNITS) CATHLAB/DIALYSIS DIALYSIS ONE (09:00)
[2021-04-08] MEDS: Aspirin EC 81 mg TAB.EC (enteric coated) PO SCH (09:02)
[2021-04-08] MEDS: Brinzolamid/Brimonidin OPH(NF) 1 DROP BTL BOTH EYES SCH ×3 (09:03→21:37)
[2021-04-08] MEDS: Insulin GLARGINE 100 un/ml 10 ml VIAL SUBCUT SCH (09:03)
[2021-04-08 11:12] LABS: Hepatitis B Surface Antigen Nonreactive (Nonreactive)
[2021-04-08 11:30] LABS: Hepatitis B Surface Ab Not Immune (Immune)
[2021-04-08] MEDS: Heparin 1,000 UNIT/ML 10 ml (10,000 UNITS) CATHLAB/DIALYSIS DIALYSIS PRN ×2 (14:05→15:38)
[2021-04-08] MEDS: Latanoprost 0.005% 2.5 ml BTL BOTH EYES SCH (22:18)
[2021-04-09] MEDS ORDERED: Haloperidol 5 mg/ml SDV IV/IM 5 MG/ML AMP IM ONE ×2 (02:49→06:30)
[2021-04-09] MEDS ORDERED: Haloperidol 5 mg/ml SDV IV/IM 5 MG/ML AMP ONE ×2 (02:52→06:31)
[2021-04-09] MEDS ORDERED: Lorazepam PYXIS KEY PRN (02:53)
[2021-04-09] MEDS ORDERED: LORazepam 2 mg VIAL 1 ml IM ONE (02:53)
[2021-04-09] MEDS: Nicotine GUM 4MG FRUIT FLAVOR PO PRN (06:39)
[2021-04-09] MEDS: SPIRIVA Respimat (tiotropium) 2.5 mcg/inh Inhaler INH SCH (07:29)
[2021-04-09] MEDS: Aspirin EC 81 mg TAB.EC (enteric coated) PO SCH (08:26)
[2021-04-09] MEDS: Insulin GLARGINE 100 un/ml 10 ml VIAL SUBCUT SCH (08:27)
[2021-04-09] MEDS: Brinzolamid/Brimonidin OPH(NF) 1 DROP BTL BOTH EYES SCH ×3 (08:33→22:56)
[2021-04-09 08:35] LABS: Hematocrit 26 % (42-52); Hemoglobin 8.8 g/dL (14.0-18.0); Mean Corpuscular HGB Conc 34 g/dL (31-36); Mean Corpuscular Hemoglobin 33 pg (27-31); Mean Corpuscular Volume 99 fL (80-94); Mean Platelet Volume 7.7 fL (7.4-10.4); Platelet Count 294 10^3/uL (150-450); Red Blood Count 2.64 10^6 /uL (4.18-5.48); Red Cell Distribution Width 17 % (10-15); White Blood Count 5.3 10^3/uL (3.5-10.8)
[2021-04-09 08:57] LABS: Calcium 8.7 mg/dL (8.6-10.3); Magnesium 2.2 mg/dL (1.9-2.7); Potassium 4.5 mmol/L (3.5-5.0)
[2021-04-09] MEDS: DARIFENACIN 15 MG PO SCH (11:43)
[2021-04-09] MEDS: CMC:LoraTADine 10 mg TAB (NF) PO SCH (11:43)
[2021-04-09] MEDS: Fluticasone NASAL SPRAY 50MCG 16 gm SPRAY BTL INTRANASAL SCH (11:43)
[2021-04-09] MEDS ORDERED: Haloperidol 5 mg/ml SDV IV/IM 5 MG/ML AMP IV SLOW PU ONE ×2 (13:24→13:33)
[2021-04-09] MEDS ORDERED: Haloperidol 5 mg/ml SDV IV/IM 5 MG/ML AMP IV SLOW PU PRN (13:32)
[2021-04-09] MEDS: Latanoprost 0.005% 2.5 ml BTL BOTH EYES SCH (17:51)
[2021-04-10] MEDS: SPIRIVA Respimat (tiotropium) 2.5 mcg/inh Inhaler INH SCH (07:21)
[2021-04-10] MEDS: Brinzolamid/Brimonidin OPH(NF) 1 DROP BTL BOTH EYES SCH ×3 (10:12→20:30)
[2021-04-10] MEDS: DARIFENACIN 15 MG PO SCH (10:23)
[2021-04-10] MEDS: Aspirin EC 81 mg TAB.EC (enteric coated) PO SCH (10:23)
[2021-04-10] MEDS: Fluticasone NASAL SPRAY 50MCG 16 gm SPRAY BTL INTRANASAL SCH (10:32)
[2021-04-10] MEDS: Insulin GLARGINE 100 un/ml 10 ml VIAL SUBCUT SCH (10:34)
[2021-04-10] MEDS: Heparin 1,000 UNIT/ML 10 ml (10,000 UNITS) CATHLAB/DIALYSIS DIALYSIS SCH ×3 (12:20→14:28)
[2021-04-10] MEDS ORDERED: Pentafluoroprop/Tetrafluoro(NF) 1 SPRAY TOP.SPRAY TOPICAL SCH (13:00)
[2021-04-10] MEDS ORDERED: Lactated Ringers 500 ml BAG 500 ML IV ONE (17:34)
[2021-04-10] MEDS: Latanoprost 0.005% 2.5 ml BTL BOTH EYES SCH (18:30)
[2021-04-11] MEDS: Aspirin EC 81 mg TAB.EC (enteric coated) PO SCH (10:04)
[2021-04-11] MEDS: Insulin GLARGINE 100 un/ml 10 ml VIAL SUBCUT SCH (10:07)
[2021-04-11] MEDS: DARIFENACIN 15 MG PO SCH (11:22)
[2021-04-11] MEDS: Fluticasone NASAL SPRAY 50MCG 16 gm SPRAY BTL INTRANASAL SCH (11:22)
[2021-04-11] MEDS: SPIRIVA Respimat (tiotropium) 2.5 mcg/inh Inhaler INH SCH (11:23)
[2021-04-11] MEDS: Brinzolamid/Brimonidin OPH(NF) 1 DROP BTL BOTH EYES SCH ×2 (11:25→14:41)
[2021-04-11] MEDS: CMC:LoraTADine 10 mg TAB (NF) PO SCH (11:31)
[2021-04-11] MEDS: Nicotine GUM 4MG FRUIT FLAVOR PO PRN (14:40)
[2021-04-11 17:07] VITALS: BP 117/43
== END 2021-04-11 18:58 | disposition swing bed (61) | DRG 884 ==
LOC: MEDTELE 17:01 → ED 17:01 → SUATTDRO 04-07 00:38 → MEDTELE 04-07 03:27
PROVIDERS: ADMIT Internal Medicine; ATTEND Internal Medicine

== ENCOUNTER 2021-04-11 18:58 | Inpatient (IN) ==
[2021-04-11] MEDS ORDERED: Haloperidol 5 mg/ml SDV IV/IM 5 MG/ML AMP IV SLOW PU PRN (20:50)
[2021-04-11] MEDS ORDERED: Nicotine GUM 4MG FRUIT FLAVOR PO PRN (20:50)
[2021-04-11] MEDS ORDERED: Albuterol HFA INHALER 8 gm MDI INH PRN (20:50)
[2021-04-11] MEDS: NF: Brinzolamid/Brimonidin OPH(NF) 1 DROP BTL BOTH EYES SCH (23:19)
[2021-04-12] MEDS: Aspirin EC 81 mg TAB.EC (enteric coated) PO SCH (07:29)
[2021-04-12] MEDS: CMCS: Darifenacin 15 mg ER TAB (NF) PO SCH (07:31)
[2021-04-12] MEDS: NF: Brinzolamid/Brimonidin OPH(NF) 1 DROP BTL BOTH EYES SCH ×3 (07:33→22:40)
[2021-04-12] MEDS: SPIRIVA Respimat (tiotropium) 2.5 mcg/inh Inhaler INH SCH (07:50)
[2021-04-12] MEDS: Insulin GLARGINE 100 un/ml 10 ml VIAL SUBCUT SCH (12:18)
[2021-04-12] MEDS: Fluticasone NASAL SPRAY 50MCG 16 gm SPRAY BTL INTRANASAL SCH (12:18)
[2021-04-12] MEDS: Heparin 1,000 UNIT/ML 10 ml (10,000 UNITS) CATHLAB/DIALYSIS DIALYSIS SCH ×3 (14:10→16:20)
[2021-04-12] MEDS: Latanoprost 0.005% 2.5 ml BTL BOTH EYES SCH (22:40)
[2021-04-13] MEDS: SPIRIVA Respimat (tiotropium) 2.5 mcg/inh Inhaler INH SCH (07:40)
[2021-04-13] MEDS: CMCS: LoraTADine 10 mg TAB (NF) PO SCH (10:43)
[2021-04-13] MEDS: CMCS: Darifenacin 15 mg ER TAB (NF) PO SCH (10:44)
[2021-04-13] MEDS: Aspirin EC 81 mg TAB.EC (enteric coated) PO SCH (10:45)
[2021-04-13] MEDS: Insulin GLARGINE 100 un/ml 10 ml VIAL SUBCUT SCH (10:51)
[2021-04-13] MEDS: Fluticasone NASAL SPRAY 50MCG 16 gm SPRAY BTL INTRANASAL SCH (10:55)
[2021-04-13] MEDS: NF: Brinzolamid/Brimonidin OPH(NF) 1 DROP BTL BOTH EYES SCH ×2 (11:07→13:26)
[2021-04-14] MEDS: Latanoprost 0.005% 2.5 ml BTL BOTH EYES SCH ×2 (04:34→21:16)
[2021-04-14] MEDS: NF: Brinzolamid/Brimonidin OPH(NF) 1 DROP BTL BOTH EYES SCH ×4 (04:34→21:15)
[2021-04-14] MEDS: SPIRIVA Respimat (tiotropium) 2.5 mcg/inh Inhaler INH SCH (07:12)
[2021-04-14] MEDS: Fluticasone NASAL SPRAY 50MCG 16 gm SPRAY BTL INTRANASAL SCH (09:00)
[2021-04-14] MEDS: Aspirin EC 81 mg TAB.EC (enteric coated) PO SCH (09:07)
[2021-04-14] MEDS: CMCS: Darifenacin 15 mg ER TAB (NF) PO SCH (09:08)
[2021-04-14] MEDS: Insulin GLARGINE 100 un/ml 10 ml VIAL SUBCUT SCH (09:16)
[2021-04-15] MEDS: SPIRIVA Respimat (tiotropium) 2.5 mcg/inh Inhaler INH SCH (08:52)
[2021-04-15] MEDS: Insulin GLARGINE 100 un/ml 10 ml VIAL SUBCUT SCH (09:19)
[2021-04-15] MEDS: Aspirin EC 81 mg TAB.EC (enteric coated) PO SCH (09:21)
[2021-04-15] MEDS: Fluticasone NASAL SPRAY 50MCG 16 gm SPRAY BTL INTRANASAL SCH (09:23)
[2021-04-15] MEDS: CMCS: Darifenacin 15 mg ER TAB (NF) PO SCH (09:23)
[2021-04-15] MEDS: CMCS: LoraTADine 10 mg TAB (NF) PO SCH (09:27)
[2021-04-15] MEDS: NF: Brinzolamid/Brimonidin OPH(NF) 1 DROP BTL BOTH EYES SCH ×3 (09:27→20:43)
[2021-04-15] MEDS: Heparin 1,000 UNIT/ML 10 ml (10,000 UNITS) CATHLAB/DIALYSIS DIALYSIS SCH ×3 (15:00→17:20)
[2021-04-15 19:32] LABS: Hematocrit 22 % (42-52); Hemoglobin 7.5 g/dL (14.0-18.0); Mean Corpuscular HGB Conc 34 g/dL (31-36); Mean Corpuscular Hemoglobin 33 pg (27-31); Mean Corpuscular Volume 98 fL (80-94); Mean Platelet Volume 7.6 fL (7.4-10.4); Platelet Count 253 10^3/uL (150-450); Red Blood Count 2.28 10^6 /uL (4.18-5.48); Red Cell Distribution Width 17 % (10-15); White Blood Count 6.2 10^3/uL (3.5-10.8)
[2021-04-15] MEDS: Latanoprost 0.005% 2.5 ml BTL BOTH EYES SCH ×2 (20:44→21:50)
[2021-04-15 20:58] LABS: Calcium (PTH Intact) 9.1 mg/dL (8.6-10.3)
[2021-04-15 21:33] LABS: Calcium 9.4 mg/dL (8.6-10.3); Phosphorus 1.6 mg/dL (2.5-5.0); Potassium 3.9 mmol/L (3.5-5.0)
[2021-04-16] MEDS: SPIRIVA Respimat (tiotropium) 2.5 mcg/inh Inhaler INH SCH (07:05)
[2021-04-16] MEDS: Fluticasone NASAL SPRAY 50MCG 16 gm SPRAY BTL INTRANASAL SCH (07:53)
[2021-04-16] MEDS: Insulin GLARGINE 100 un/ml 10 ml VIAL SUBCUT SCH (07:53)
[2021-04-16] MEDS: CMCS: Darifenacin 15 mg ER TAB (NF) PO SCH (07:53)
[2021-04-16] MEDS: Aspirin EC 81 mg TAB.EC (enteric coated) PO SCH (07:54)
[2021-04-16] MEDS: NF: Brinzolamid/Brimonidin OPH(NF) 1 DROP BTL BOTH EYES SCH ×3 (07:55→19:10)
[2021-04-16] MEDS: Latanoprost 0.005% 2.5 ml BTL BOTH EYES SCH (19:17)
[2021-04-17] MEDS: Aspirin EC 81 mg TAB.EC (enteric coated) PO SCH (09:06)
[2021-04-17] MEDS: CMCS: Darifenacin 15 mg ER TAB (NF) PO SCH (09:07)
[2021-04-17] MEDS: CMCS: LoraTADine 10 mg TAB (NF) PO SCH (09:08)
[2021-04-17] MEDS: Fluticasone NASAL SPRAY 50MCG 16 gm SPRAY BTL INTRANASAL SCH (09:09)
[2021-04-17] MEDS: Insulin GLARGINE 100 un/ml 10 ml VIAL SUBCUT SCH (09:15)
[2021-04-17] MEDS: SPIRIVA Respimat (tiotropium) 2.5 mcg/inh Inhaler INH SCH (09:16)
[2021-04-17] MEDS: NF: Brinzolamid/Brimonidin OPH(NF) 1 DROP BTL BOTH EYES SCH ×4 (09:16→20:59)
[2021-04-17] MEDS: Heparin 1,000 UNIT/ML 10 ml (10,000 UNITS) CATHLAB/DIALYSIS DIALYSIS SCH ×3 (13:00→15:29)
[2021-04-17] MEDS: [UNRECOGNIZED DRUG - OTHER] TOPICAL SCH (16:49)
[2021-04-17] MEDS: Latanoprost 0.005% 2.5 ml BTL BOTH EYES SCH ×2 (19:55→21:44)
[2021-04-18 06:32] LABS: Hematocrit 19 % (42-52); Hemoglobin 6.5 g/dL (14.0-18.0)
[2021-04-18] MEDS: SPIRIVA Respimat (tiotropium) 2.5 mcg/inh Inhaler INH SCH (06:59)
[2021-04-18] MEDS: NF: Brinzolamid/Brimonidin OPH(NF) 1 DROP BTL BOTH EYES SCH ×2 (09:21→14:53)
[2021-04-18] MEDS: CMCS: Darifenacin 15 mg ER TAB (NF) PO SCH (09:25)
[2021-04-18] MEDS: Aspirin EC 81 mg TAB.EC (enteric coated) PO SCH (09:28)
[2021-04-18] MEDS: Insulin GLARGINE 100 un/ml 10 ml VIAL SUBCUT SCH (09:30)
[2021-04-18] MEDS: Fluticasone NASAL SPRAY 50MCG 16 gm SPRAY BTL INTRANASAL SCH (11:22)
[2021-04-18] MEDS: Latanoprost 0.005% 2.5 ml BTL BOTH EYES SCH (20:31)
[2021-04-19] MEDS: NF: Brinzolamid/Brimonidin OPH(NF) 1 DROP BTL BOTH EYES SCH ×4 (01:07→21:17)
[2021-04-19] MEDS: Magnesium Hydroxide LIQ 30 ML UDC PO PRN (05:57)
[2021-04-19] MEDS: SPIRIVA Respimat (tiotropium) 2.5 mcg/inh Inhaler INH SCH (07:41)
[2021-04-19 09:48] LABS: Hematocrit 22 % (42-52); Hemoglobin 7.2 g/dL (14.0-18.0)
[2021-04-19] MEDS: Insulin GLARGINE 100 un/ml 10 ml VIAL SUBCUT SCH (10:57)
[2021-04-19] MEDS: Aspirin EC 81 mg TAB.EC (enteric coated) PO SCH (10:58)
[2021-04-19] MEDS: Fluticasone NASAL SPRAY 50MCG 16 gm SPRAY BTL INTRANASAL SCH (12:43)
[2021-04-19] MEDS: CMCS: LoraTADine 10 mg TAB (NF) PO SCH (12:43)
[2021-04-19] MEDS: CMCS: Darifenacin 15 mg ER TAB (NF) PO SCH (12:43)
[2021-04-19] MEDS: Heparin 1,000 UNIT/ML 10 ml (10,000 UNITS) CATHLAB/DIALYSIS DIALYSIS SCH ×3 (12:55→15:05)
[2021-04-19] MEDS: [UNRECOGNIZED DRUG - OTHER] TOPICAL SCH (17:15)
[2021-04-19] MEDS: Latanoprost 0.005% 2.5 ml BTL BOTH EYES SCH (21:12)
[2021-04-20] MEDS: CMCS: Darifenacin 15 mg ER TAB (NF) PO SCH (07:54)
[2021-04-20] MEDS: Aspirin EC 81 mg TAB.EC (enteric coated) PO SCH (07:56)
[2021-04-20] MEDS: Fluticasone NASAL SPRAY 50MCG 16 gm SPRAY BTL INTRANASAL SCH (08:02)
[2021-04-20] MEDS: Insulin GLARGINE 100 un/ml 10 ml VIAL SUBCUT SCH (08:02)
[2021-04-20] MEDS: NF: Brinzolamid/Brimonidin OPH(NF) 1 DROP BTL BOTH EYES SCH ×3 (08:14→20:16)
[2021-04-20] MEDS: SPIRIVA Respimat (tiotropium) 2.5 mcg/inh Inhaler INH SCH (08:28)
[2021-04-20] MEDS: Latanoprost 0.005% 2.5 ml BTL BOTH EYES SCH (20:14)
[2021-04-21] MEDS: SPIRIVA Respimat (tiotropium) 2.5 mcg/inh Inhaler INH SCH (07:18)
[2021-04-21] MEDS: NF: Brinzolamid/Brimonidin OPH(NF) 1 DROP BTL BOTH EYES SCH ×3 (10:12→19:33)
[2021-04-21] MEDS: CMCS: Darifenacin 15 mg ER TAB (NF) PO SCH (10:52)
[2021-04-21] MEDS: Aspirin EC 81 mg TAB.EC (enteric coated) PO SCH (10:53)
[2021-04-21] MEDS: CMCS: LoraTADine 10 mg TAB (NF) PO SCH (10:53)
[2021-04-21] MEDS: Fluticasone NASAL SPRAY 50MCG 16 gm SPRAY BTL INTRANASAL SCH (10:54)
[2021-04-21] MEDS: Insulin GLARGINE 100 un/ml 10 ml VIAL SUBCUT SCH (11:09)
[2021-04-21] MEDS: Magnesium Hydroxide LIQ 30 ML UDC PO PRN (19:29)
[2021-04-21] MEDS: Latanoprost 0.005% 2.5 ml BTL BOTH EYES SCH (19:30)
[2021-04-22] MEDS: SPIRIVA Respimat (tiotropium) 2.5 mcg/inh Inhaler INH SCH (07:21)
[2021-04-22] MEDS: Insulin GLARGINE 100 un/ml 10 ml VIAL SUBCUT SCH (08:34)
[2021-04-22] MEDS: Fluticasone NASAL SPRAY 50MCG 16 gm SPRAY BTL INTRANASAL SCH (08:34)
[2021-04-22] MEDS: NF: Brinzolamid/Brimonidin OPH(NF) 1 DROP BTL BOTH EYES SCH ×3 (08:41→20:27)
[2021-04-22] MEDS: [UNRECOGNIZED DRUG - OTHER] TOPICAL SCH (11:40)
[2021-04-22] MEDS: Heparin 1,000 UNIT/ML 10 ml (10,000 UNITS) CATHLAB/DIALYSIS DIALYSIS SCH ×3 (11:40→13:45)
[2021-04-22] MEDS: Aspirin EC 81 mg TAB.EC (enteric coated) PO SCH (16:14)
[2021-04-22] MEDS: CMCS: Darifenacin 15 mg ER TAB (NF) PO SCH (16:16)
[2021-04-22] MEDS: Latanoprost 0.005% 2.5 ml BTL BOTH EYES SCH (20:36)
[2021-04-23] MEDS: Aspirin EC 81 mg TAB.EC (enteric coated) PO SCH (10:48)
[2021-04-23] MEDS: Fluticasone NASAL SPRAY 50MCG 16 gm SPRAY BTL INTRANASAL SCH (10:51)
[2021-04-23] MEDS: SPIRIVA Respimat (tiotropium) 2.5 mcg/inh Inhaler INH SCH (10:52)
[2021-04-23] MEDS: Insulin GLARGINE 100 un/ml 10 ml VIAL SUBCUT SCH (11:34)
[2021-04-23] MEDS: NF: Brinzolamid/Brimonidin OPH(NF) 1 DROP BTL BOTH EYES SCH ×3 (11:37→21:11)
[2021-04-23] MEDS: CMCS: LoraTADine 10 mg TAB (NF) PO SCH (11:45)
[2021-04-23] MEDS: CMCS: Darifenacin 15 mg ER TAB (NF) PO SCH (11:45)
[2021-04-23 15:59] LABS: Hematocrit 23 % (42-52); Hemoglobin 7.7 g/dL (14.0-18.0); Mean Corpuscular HGB Conc 33 g/dL (31-36); Mean Corpuscular Hemoglobin 33 pg (27-31); Mean Corpuscular Volume 99 fL (80-94); Mean Platelet Volume 7.6 fL (7.4-10.4); Platelet Count 218 10^3/uL (150-450); Red Blood Count 2.34 10^6 /uL (4.18-5.48); Red Cell Distribution Width 16 % (10-15); White Blood Count 9.3 10^3/uL (3.5-10.8)
[2021-04-23 16:34] LABS: ABS Basophils 0.1 10^3/ul (0-0.2); ABS Eosinophils 0.1 10^3/ul (0-0.6); ABS Lymphocytes 0.7 10^3/ul (1.0-4.8); ABS Monocytes 1.8 10^3/ul (0-0.8); ABS Neutrophils 6.6 10^3/ul (1.5-7.7); Lymphocyte % 7.7 %
[2021-04-23 16:36] LABS: Albumin 3.8 g/dL (3.2-5.2); Albumin/Globulin Ratio 1.1 (1-3); Calcium 9.2 mg/dL (8.6-10.3); Globulin 3.4 g/dL (2-4); Total Bilirubin 0.4 mg/dL (0.2-1.0); Total Protein 7.2 g/dL (6.4-8.9)
[2021-04-23 16:37] LABS: Potassium 5.5 mmol/L (3.5-5.0)
[2021-04-23] MEDS: Magnesium Hydroxide LIQ 30 ML UDC PO PRN (17:19)
[2021-04-23] MEDS: Latanoprost 0.005% 2.5 ml BTL BOTH EYES SCH (21:51)
[2021-04-24] MEDS: Aspirin EC 81 mg TAB.EC (enteric coated) PO SCH (10:57)
[2021-04-24] MEDS: CMCS: Darifenacin 15 mg ER TAB (NF) PO SCH (10:58)
[2021-04-24] MEDS: Fluticasone NASAL SPRAY 50MCG 16 gm SPRAY BTL INTRANASAL SCH (10:58)
[2021-04-24] MEDS: Insulin GLARGINE 100 un/ml 10 ml VIAL SUBCUT SCH (11:34)
[2021-04-24] MEDS: [UNRECOGNIZED DRUG - OTHER] TOPICAL SCH (12:45)
[2021-04-24] MEDS: SPIRIVA Respimat (tiotropium) 2.5 mcg/inh Inhaler INH SCH (13:06)
[2021-04-24] MEDS: NF: Brinzolamid/Brimonidin OPH(NF) 1 DROP BTL BOTH EYES SCH ×3 (13:06→19:58)
[2021-04-24] MEDS: Heparin 1,000 UNIT/ML 10 ml (10,000 UNITS) CATHLAB/DIALYSIS DIALYSIS SCH (14:41)
[2021-04-24] MEDS: Latanoprost 0.005% 2.5 ml BTL BOTH EYES SCH (19:58)
[2021-04-25] MEDS: Aspirin EC 81 mg TAB.EC (enteric coated) PO SCH (09:11)
[2021-04-25] MEDS: NF: Brinzolamid/Brimonidin OPH(NF) 1 DROP BTL BOTH EYES SCH ×3 (09:12→20:10)
[2021-04-25] MEDS: CMCS: Darifenacin 15 mg ER TAB (NF) PO SCH (09:12)
[2021-04-25] MEDS: Fluticasone NASAL SPRAY 50MCG 16 gm SPRAY BTL INTRANASAL SCH (09:12)
[2021-04-25] MEDS: Insulin GLARGINE 100 un/ml 10 ml VIAL SUBCUT SCH (09:13)
[2021-04-25] MEDS: CMCS: LoraTADine 10 mg TAB (NF) PO SCH (09:13)
[2021-04-25] MEDS: SPIRIVA Respimat (tiotropium) 2.5 mcg/inh Inhaler INH SCH (09:13)
[2021-04-25 12:17] LABS: ABS Basophils 0.1 10^3/ul (0-0.2); ABS Eosinophils 0.1 10^3/ul (0-0.6); ABS Lymphocytes 0.7 10^3/ul (1.0-4.8); ABS Monocytes 1.5 10^3/ul (0-0.8); Eosinophil % 0.8 %; Hematocrit 21 % (42-52); Hemoglobin 6.7 g/dL (14.0-18.0); Lymphocyte % 7.7 %; Mean Corpuscular HGB Conc 33 g/dL (31-36); Mean Corpuscular Hemoglobin 32 pg (27-31); Mean Corpuscular Volume 97 fL (80-94); Mean Platelet Volume 7.8 fL (7.4-10.4); Platelet Count 237 10^3/uL (150-450); Red Blood Count 2.13 10^6 /uL (4.18-5.48); Red Cell Distribution Width 16 % (10-15); White Blood Count 9.3 10^3/uL (3.5-10.8)
[2021-04-25] MEDS: Latanoprost 0.005% 2.5 ml BTL BOTH EYES SCH (20:10)
[2021-04-25 20:50] LABS: Calcium 8.8 mg/dL (8.6-10.3); Magnesium 2.4 mg/dL (1.9-2.7)
[2021-04-25 21:06] LABS: Potassium 5.2 mmol/L (3.5-5.0)
[2021-04-26] MEDS: SPIRIVA Respimat (tiotropium) 2.5 mcg/inh Inhaler INH SCH (09:51)
[2021-04-26] MEDS: Heparin 1,000 UNIT/ML 10 ml (10,000 UNITS) CATHLAB/DIALYSIS DIALYSIS SCH (11:22)
[2021-04-26] MEDS: [UNRECOGNIZED DRUG - OTHER] TOPICAL SCH (11:23)
[2021-04-26 13:27] LABS: Hematocrit 24 % (42-52); Hemoglobin 7.9 g/dL (14.0-18.0); Mean Corpuscular HGB Conc 33 g/dL (31-36); Mean Corpuscular Hemoglobin 31 pg (27-31); Mean Corpuscular Volume 94 fL (80-94); Mean Platelet Volume 7.1 fL (7.4-10.4); Platelet Count 238 10^3/uL (150-450); Red Blood Count 2.54 10^6 /uL (4.18-5.48); Red Cell Distribution Width 16 % (10-15); White Blood Count 11.1 10^3/uL (3.5-10.8)
[2021-04-26 13:34] LABS: ABS Basophils 0.1 10^3/ul (0-0.2); ABS Eosinophils 0.1 10^3/ul (0-0.6); ABS Lymphocytes 0.8 10^3/ul (1.0-4.8); ABS Monocytes 1.7 10^3/ul (0-0.8); ABS Neutrophils 8.4 10^3/ul (1.5-7.7); Eosinophil % 0.7 %; Lymphocyte % 7.6 %
[2021-04-26] MEDS: Aspirin EC 81 mg TAB.EC (enteric coated) PO SCH (14:37)
[2021-04-26] MEDS: CMCS: Darifenacin 15 mg ER TAB (NF) PO SCH (14:39)
[2021-04-26] MEDS: Insulin GLARGINE 100 un/ml 10 ml VIAL SUBCUT SCH (14:40)
[2021-04-26] MEDS: Fluticasone NASAL SPRAY 50MCG 16 gm SPRAY BTL INTRANASAL SCH (14:40)
[2021-04-26] MEDS: NF: Brinzolamid/Brimonidin OPH(NF) 1 DROP BTL BOTH EYES SCH ×3 (14:44→19:55)
[2021-04-26] MEDS: Latanoprost 0.005% 2.5 ml BTL BOTH EYES SCH (20:01)
[2021-04-27] MEDS: Aspirin EC 81 mg TAB.EC (enteric coated) PO SCH (08:03)
[2021-04-27] MEDS: CMCS: LoraTADine 10 mg TAB (NF) PO SCH (08:07)
[2021-04-27] MEDS: CMCS: Darifenacin 15 mg ER TAB (NF) PO SCH (08:12)
[2021-04-27] MEDS: Insulin GLARGINE 100 un/ml 10 ml VIAL SUBCUT SCH (08:13)
[2021-04-27] MEDS: SPIRIVA Respimat (tiotropium) 2.5 mcg/inh Inhaler INH SCH (08:13)
[2021-04-27] MEDS: Fluticasone NASAL SPRAY 50MCG 16 gm SPRAY BTL INTRANASAL SCH (08:14)
[2021-04-27] MEDS: NF: Brinzolamid/Brimonidin OPH(NF) 1 DROP BTL BOTH EYES SCH ×3 (11:40→19:45)
[2021-04-27] MEDS: Latanoprost 0.005% 2.5 ml BTL BOTH EYES SCH (19:37)
[2021-04-28 06:25] LABS: Hematocrit 24 % (42-52); Hemoglobin 7.9 g/dL (14.0-18.0); Mean Corpuscular HGB Conc 33 g/dL (31-36); Mean Corpuscular Hemoglobin 32 pg (27-31); Mean Corpuscular Volume 96 fL (80-94); Mean Platelet Volume 7.3 fL (7.4-10.4); Platelet Count 279 10^3/uL (150-450); Red Blood Count 2.51 10^6 /uL (4.18-5.48); Red Cell Distribution Width 16 % (10-15); White Blood Count 11.1 10^3/uL (3.5-10.8)
[2021-04-28 06:45] LABS: Anion Gap 12 mmol/L (2-11); Blood Urea Nitrogen 52 mg/dL (6-24); CO2 Carbon Dioxide 26 mmol/L (22-32); Calcium 9.1 mg/dL (8.6-10.3); Chloride 95 mmol/L (101-111); Glucose 108 mg/dL (70-100); Sodium 133 mmol/L (135-145)
[2021-04-28 07:03] LABS: Troponin I 0.04 ng/mL (<0.03)
[2021-04-28] MEDS: NF: Brinzolamid/Brimonidin OPH(NF) 1 DROP BTL BOTH EYES SCH ×3 (10:06→21:08)
[2021-04-28] MEDS: Insulin GLARGINE 100 un/ml 10 ml VIAL SUBCUT SCH (10:08)
[2021-04-28] MEDS: Aspirin EC 81 mg TAB.EC (enteric coated) PO SCH (10:13)
[2021-04-28] MEDS: CMCS: Darifenacin 15 mg ER TAB (NF) PO SCH (10:14)
[2021-04-28] MEDS: Fluticasone NASAL SPRAY 50MCG 16 gm SPRAY BTL INTRANASAL SCH (10:28)
[2021-04-28] MEDS: SPIRIVA Respimat (tiotropium) 2.5 mcg/inh Inhaler INH SCH (10:48)
[2021-04-28 11:34] LABS: Troponin I 0.04 ng/mL (<0.03)
[2021-04-28 20:15] LABS: ALT 10 U/L (7-52); AST 12 U/L (13-39); Albumin 3.3 g/dL (3.2-5.2); Albumin/Globulin Ratio 0.9 (1-3); Alkaline Phosphatase 52 U/L (35-149); Globulin 3.8 g/dL (2-4); Indirect Bilirubin 0.3 mg/dL (0.3-1.0); Total Protein 7.1 g/dL (6.4-8.9)
[2021-04-28] MEDS: Latanoprost 0.005% 2.5 ml BTL BOTH EYES SCH (21:32)
[2021-04-29] MEDS: SPIRIVA Respimat (tiotropium) 2.5 mcg/inh Inhaler INH SCH (10:33)
[2021-04-29] MEDS ORDERED: Iodixanol (CONTRAST) 320 MG/ML 100 ML SDV IV ONE (11:29)
[2021-04-29] MEDS: Aspirin EC 81 mg TAB.EC (enteric coated) PO SCH (13:50)
[2021-04-29] MEDS: NF: Brinzolamid/Brimonidin OPH(NF) 1 DROP BTL BOTH EYES SCH ×2 (13:51→16:06)
[2021-04-29] MEDS: CMCS: Darifenacin 15 mg ER TAB (NF) PO SCH (13:51)
[2021-04-29] MEDS: Fluticasone NASAL SPRAY 50MCG 16 gm SPRAY BTL INTRANASAL SCH (13:51)
[2021-04-29] MEDS: CMCS: LoraTADine 10 mg TAB (NF) PO SCH (13:52)
[2021-04-29] MEDS: Insulin GLARGINE 100 un/ml 10 ml VIAL SUBCUT SCH (13:52)
[2021-04-29] MEDS: [UNRECOGNIZED DRUG - OTHER] TOPICAL SCH (13:53)
[2021-04-29] MEDS ORDERED: HYDROmorphone 1 MG/1 ML SYRINGE ONE (15:52)
[2021-04-29] MEDS ORDERED: Albumin Human 25% 25 GM/100 ML IV ONE (16:00)
[2021-04-29] MEDS ORDERED: HYDROmorphone 1 MG/1 ML SYRINGE IV ONE (16:00)
[2021-04-29 17:51] VITALS: BP 122/52
[2021-04-29 18:32] LABS: Phosphorus 2.3 mg/dL (2.5-5.0)
[2021-04-29 22:51] LABS: Total Iron Binding Capacity 216 mcg/dL (250-450); Transferrin 154 mg/dL (203-362)
[2021-04-29 22:52] LABS: % Iron Saturation 9 % (15-55); Iron < 20 ug/dL (50-212); Unsaturated Iron Binding < 201 ug/dL
[2021-04-29 23:09] LABS: Ferritin 1117.5 ng/mL (24-336)
== END 2021-04-29 18:28 | disposition short-term general hospital (02) | DRG 682 ==
LOC: MEDTELE 18:58 → SUATTDRO 18:58 → MCHPEDS 04-12 15:14 → MED 04-18 15:51 → PMRU 04-22 16:53
PROVIDERS: ADMIT Internal Medicine; ATTEND Internal Medicine

== ENCOUNTER 2021-04-29 17:24 | Inpatient (IN) ==
[2021-04-29] MEDS ORDERED: Heparin DRIP 25,000 UNITS BAG 25,000 UNITS/500 ML BAG IV SCH (19:30)
[2021-04-29] MEDS ORDERED: Albuterol HFA INHALER 8 gm MDI INH PRN (19:34)
[2021-04-29] MEDS ORDERED: Nicotine GUM 4MG FRUIT FLAVOR PO PRN (19:54)
[2021-04-29] MEDS ORDERED: Heparin 5000 UNITS/ML 1 mL VIAL IV SCH (20:00)
[2021-04-29 20:08] LABS: ABS Basophils 0.1 10^3/ul (0-0.2); ABS Lymphocytes 0.4 10^3/ul (1.0-4.8); ABS Monocytes 1.1 10^3/ul (0-0.8); Eosinophil % 0.2 %; Hematocrit 21 % (42-52); Hemoglobin 6.9 g/dL (14.0-18.0); Lymphocyte % 3.8 %; Mean Corpuscular HGB Conc 34 g/dL (31-36); Mean Corpuscular Hemoglobin 32 pg (27-31); Mean Corpuscular Volume 95 fL (80-94); Mean Platelet Volume 7.5 fL (7.4-10.4); Platelet Count 249 10^3/uL (150-450); Red Blood Count 2.16 10^6 /uL (4.18-5.48); Red Cell Distribution Width 16 % (10-15); White Blood Count 10.6 10^3/uL (3.5-10.8)
[2021-04-29] MEDS: PTO: Brinzolamid/Brimonidin OPH(NF) 1 DROP BTL BOTH EYES SCH (22:41)
[2021-04-30 00:52] LABS: Hematocrit 21 % (42-52); Hemoglobin 6.9 g/dL (14.0-18.0)
[2021-04-30 05:58] LABS: Hematocrit 20 % (42-52); Hemoglobin 6.7 g/dL (14.0-18.0); Mean Corpuscular HGB Conc 33 g/dL (31-36); Mean Corpuscular Hemoglobin 31 pg (27-31); Mean Corpuscular Volume 95 fL (80-94); Mean Platelet Volume 7.9 fL (7.4-10.4); Platelet Count 262 10^3/uL (150-450); Red Blood Count 2.15 10^6 /uL (4.18-5.48); Red Cell Distribution Width 16 % (10-15); White Blood Count 13.5 10^3/uL (3.5-10.8)
[2021-04-30 06:14] LABS: Albumin 3.3 g/dL (3.2-5.2); Albumin/Globulin Ratio 0.9 (1-3); Calcium 8.6 mg/dL (8.6-10.3); Globulin 3.7 g/dL (2-4); Potassium 4.5 mmol/L (3.5-5.0); Total Bilirubin 0.4 mg/dL (0.2-1.0)
[2021-04-30 07:13] LABS: ABS Lymphocytes 0.4 10^3/ul (1.0-4.8); ABS Neutrophils 10.9 10^3/ul (1.5-7.7); Eosinophil % 0.1 %; Lymphocyte % 3.2 %; Nucleated Red Blood Cells % 0.1
[2021-04-30] MEDS: CMCS:Darifenacin 15 mg ER TAB (NF) PO SCH (08:21)
[2021-04-30] MEDS: Fluticasone NASAL SPRAY 50MCG 16 gm SPRAY BTL INTRANASAL SCH (08:22)
[2021-04-30] MEDS: Insulin GLARGINE 100 un/ml 10 ml VIAL SUBCUT SCH (08:23)
[2021-04-30] MEDS: Aspirin EC 81 mg TAB.EC (enteric coated) PO SCH (08:23)
[2021-04-30] MEDS: PTO: Brinzolamid/Brimonidin OPH(NF) 1 DROP BTL BOTH EYES SCH ×3 (08:25→20:10)
[2021-04-30] MEDS ORDERED: Magnesium Hydroxide LIQ 30 ML UDC PO PRN (09:04)
[2021-04-30] MEDS: SPIRIVA Respimat (tiotropium) 2.5 mcg/inh Inhaler INH SCH (09:23)
[2021-04-30 12:41] LABS: Hematocrit 22 % (42-52); Hemoglobin 7.1 g/dL (14.0-18.0)
[2021-04-30 19:23] LABS: Hematocrit 23 % (42-52); Hemoglobin 7.7 g/dL (14.0-18.0)
[2021-04-30] MEDS: Latanoprost 0.005% 2.5 ml BTL BOTH EYES SCH (20:27)
[2021-05-01 06:22] LABS: ABS Eosinophils 0.1 10^3/ul (0-0.6); ABS Lymphocytes 0.4 10^3/ul (1.0-4.8); ABS Monocytes 1.3 10^3/ul (0-0.8); ABS Neutrophils 9.5 10^3/ul (1.5-7.7); Eosinophil % 0.6 %; Hematocrit 24 % (42-52); Hemoglobin 7.6 g/dL (14.0-18.0); Lymphocyte % 3.5 %; Mean Corpuscular HGB Conc 32 g/dL (31-36); Mean Corpuscular Hemoglobin 30 pg (27-31); Mean Corpuscular Volume 92 fL (80-94); Mean Platelet Volume 7.8 fL (7.4-10.4); Platelet Count 251 10^3/uL (150-450); Red Blood Count 2.55 10^6 /uL (4.18-5.48); Red Cell Distribution Width 16 % (10-15); White Blood Count 11.2 10^3/uL (3.5-10.8)
[2021-05-01 06:36] LABS: Calcium 8.7 mg/dL (8.6-10.3); Potassium 4.5 mmol/L (3.5-5.0)
[2021-05-01] MEDS: SPIRIVA Respimat (tiotropium) 2.5 mcg/inh Inhaler INH SCH (08:34)
[2021-05-01] MEDS: Insulin GLARGINE 100 un/ml 10 ml VIAL SUBCUT SCH (09:00)
[2021-05-01] MEDS ORDERED: Midazolam 10 mg/10 ml VIAL 1 mg/ml 10 ml VIAL (10 mg) ONE (13:47)
[2021-05-01] MEDS ORDERED: fentaNYL 100 mcg/2 ml 50 MCG/ML VIAL ONE (13:48)
[2021-05-01] MEDS: [UNRECOGNIZED DRUG - OTHER] TOPICAL SCH (15:52)
[2021-05-01] MEDS: PTO: Brinzolamid/Brimonidin OPH(NF) 1 DROP BTL BOTH EYES SCH ×2 (15:53→19:43)
[2021-05-01] MEDS: Aspirin EC 81 mg TAB.EC (enteric coated) PO SCH (17:31)
[2021-05-01] MEDS: CMCS:Darifenacin 15 mg ER TAB (NF) PO SCH (17:33)
[2021-05-01] MEDS: Fluticasone NASAL SPRAY 50MCG 16 gm SPRAY BTL INTRANASAL SCH (17:34)
[2021-05-01] MEDS: CMCS:LoraTADine 10 mg TAB (NF) PO SCH (17:34)
[2021-05-01] MEDS: Pantoprazole VIAL 40 MG VIAL IV SCH (19:44)
[2021-05-01] MEDS: Latanoprost 0.005% 2.5 ml BTL BOTH EYES SCH (19:48)
[2021-05-02] MEDS: SPIRIVA Respimat (tiotropium) 2.5 mcg/inh Inhaler INH SCH (09:13)
[2021-05-02] MEDS ORDERED: Ketamine HCL 50 mg/ml 10 ml VIAL (500 MG) ONE (12:43)
[2021-05-02] MEDS ORDERED: Propofol 10 MG/ML 20 ML BTL ONE (12:43)
[2021-05-02] MEDS ORDERED: fentaNYL 100 mcg/2 ml 50 MCG/ML VIAL ONE (12:44)
[2021-05-02] MEDS ORDERED: Lidocaine 2% PF 5 ML VIAL ONE (12:44)
[2021-05-02] MEDS ORDERED: Midazolam 5 mg/5 ml VIAL 1 mg/ml 5 ml VIAL (5 mg) ONE (12:45)
[2021-05-02] MEDS ORDERED: Naloxone 0.4 mg VIAL 0.4 mg/ml 1 ml VIAL IV PRN (13:26)
[2021-05-02 15:00] LABS: Hematocrit 25 % (42-52); Hemoglobin 8.1 g/dL (14.0-18.0); Mean Corpuscular HGB Conc 32 g/dL (31-36); Mean Corpuscular Hemoglobin 30 pg (27-31); Mean Corpuscular Volume 95 fL (80-94); Mean Platelet Volume 8.1 fL (7.4-10.4); Platelet Count 262 10^3/uL (150-450); Red Blood Count 2.67 10^6 /uL (4.18-5.48); Red Cell Distribution Width 16 % (10-15); White Blood Count 12.7 10^3/uL (3.5-10.8)
[2021-05-02] MEDS: PTO: Brinzolamid/Brimonidin OPH(NF) 1 DROP BTL BOTH EYES SCH ×2 (15:32→20:09)
[2021-05-02] MEDS: Heparin DRIP 25,000 UNITS BAG 25,000 UNITS/500 ML BAG IV SCH (15:38)
[2021-05-02] MEDS: Heparin 5000 UNITS/ML 1 mL VIAL IV SCH ×2 (15:39→22:59)
[2021-05-02] MEDS: Aspirin EC 81 mg TAB.EC (enteric coated) PO SCH (15:44)
[2021-05-02] MEDS: CMCS:Darifenacin 15 mg ER TAB (NF) PO SCH (15:46)
[2021-05-02] MEDS: Insulin GLARGINE 100 un/ml 10 ml VIAL SUBCUT SCH (15:47)
[2021-05-02] MEDS: Fluticasone NASAL SPRAY 50MCG 16 gm SPRAY BTL INTRANASAL SCH (15:47)
[2021-05-02 16:06] LABS: ABS Eosinophils 0.1 10^3/ul (0-0.6); ABS Lymphocytes 0.6 10^3/ul (1.0-4.8); Eosinophil % 0.8 %; Lymphocyte % 4.8 %
[2021-05-02] MEDS: Pantoprazole VIAL 40 MG VIAL IV SCH ×2 (17:20→20:05)
[2021-05-02] MEDS: Latanoprost 0.005% 2.5 ml BTL BOTH EYES SCH (20:05)
[2021-05-03 06:02] LABS: Hematocrit 23 % (42-52); Hemoglobin 7.3 g/dL (14.0-18.0); Mean Corpuscular HGB Conc 32 g/dL (31-36); Mean Corpuscular Hemoglobin 30 pg (27-31); Mean Corpuscular Volume 93 fL (80-94); Mean Platelet Volume 7.9 fL (7.4-10.4); Platelet Count 277 10^3/uL (150-450); Red Blood Count 2.47 10^6 /uL (4.18-5.48); Red Cell Distribution Width 16 % (10-15); White Blood Count 14.4 10^3/uL (3.5-10.8)
[2021-05-03 06:04] LABS: ABS Eosinophils 0.1 10^3/ul (0-0.6); ABS Lymphocytes 0.7 10^3/ul (1.0-4.8); ABS Monocytes 2.1 10^3/ul (0-0.8); ABS Neutrophils 11.6 10^3/ul (1.5-7.7); Eosinophil % 0.6 %; Lymphocyte % 4.6 %; Nucleated Red Blood Cells % 0.1
[2021-05-03 06:26] LABS: Calcium 8.2 mg/dL (8.6-10.3); Potassium 4.1 mmol/L (3.5-5.0)
[2021-05-03] MEDS: SPIRIVA Respimat (tiotropium) 2.5 mcg/inh Inhaler INH SCH (08:16)
[2021-05-03] MEDS: PTO: Brinzolamid/Brimonidin OPH(NF) 1 DROP BTL BOTH EYES SCH ×3 (09:09→20:32)
[2021-05-03] MEDS: Pantoprazole VIAL 40 MG VIAL IV SCH ×2 (09:57→20:22)
[2021-05-03] MEDS: CMCS:Darifenacin 15 mg ER TAB (NF) PO SCH (09:57)
[2021-05-03] MEDS: Aspirin EC 81 mg TAB.EC (enteric coated) PO SCH (09:57)
[2021-05-03] MEDS: CMCS:LoraTADine 10 mg TAB (NF) PO SCH (09:57)
[2021-05-03] MEDS: Fluticasone NASAL SPRAY 50MCG 16 gm SPRAY BTL INTRANASAL SCH (09:58)
[2021-05-03] MEDS: Insulin GLARGINE 100 un/ml 10 ml VIAL SUBCUT SCH (10:01)
[2021-05-03] MEDS: [UNRECOGNIZED DRUG - OTHER] TOPICAL SCH (10:03)
[2021-05-03 13:08] LABS: Hematocrit 24 % (42-52); Hemoglobin 7.7 g/dL (14.0-18.0)
[2021-05-03] MEDS: Heparin DRIP 25,000 UNITS BAG 25,000 UNITS/500 ML BAG IV SCH (13:27)
[2021-05-03] MEDS ORDERED: Warfarin per PHARMACY **NOTE FOLLOW UP SCH (17:00)
[2021-05-03] MEDS: Warfarin DAILY REMINDER **NOTE FOLLOW UP SCH (17:12)
[2021-05-03] MEDS: Latanoprost 0.005% 2.5 ml BTL BOTH EYES SCH (20:22)
[2021-05-04 05:59] LABS: INR 1.43 (0.86-1.15)
[2021-05-04] MEDS ORDERED: Dextrose 50% Syringe 50 ml 25 GM/50 ML SYRINGE IV PUSH PRN (08:48)
[2021-05-04] MEDS: Aspirin EC 81 mg TAB.EC (enteric coated) PO SCH (09:01)
[2021-05-04] MEDS: Pantoprazole VIAL 40 MG VIAL IV SCH ×2 (09:01→20:09)
[2021-05-04] MEDS: Insulin GLARGINE 100 un/ml 10 ml VIAL SUBCUT SCH (09:02)
[2021-05-04] MEDS: PTO: Brinzolamid/Brimonidin OPH(NF) 1 DROP BTL BOTH EYES SCH ×3 (09:02→20:08)
[2021-05-04] MEDS: CMCS:Darifenacin 15 mg ER TAB (NF) PO SCH (09:02)
[2021-05-04] MEDS: Fluticasone NASAL SPRAY 50MCG 16 gm SPRAY BTL INTRANASAL SCH (09:04)
[2021-05-04] MEDS: SPIRIVA Respimat (tiotropium) 2.5 mcg/inh Inhaler INH SCH (09:13)
[2021-05-04] MEDS: Heparin DRIP 25,000 UNITS BAG 25,000 UNITS/500 ML BAG IV SCH (10:45)
[2021-05-04] MEDS ORDERED: NS 0.9% 250 ml 250 ML IV ONE (11:22)
[2021-05-04] MEDS: Warfarin DAILY REMINDER **NOTE FOLLOW UP SCH (18:03)
[2021-05-04] MEDS: Latanoprost 0.005% 2.5 ml BTL BOTH EYES SCH (20:17)
[2021-05-05 06:24] LABS: INR 1.87 (0.86-1.15)
[2021-05-05] MEDS ORDERED: Iodixanol (CONTRAST) 320 MG/ML 100 ML SDV IV ONE (07:04)
[2021-05-05] MEDS: Insulin GLARGINE 100 un/ml 10 ml VIAL SUBCUT SCH (08:06)
[2021-05-05] MEDS: Fluticasone NASAL SPRAY 50MCG 16 gm SPRAY BTL INTRANASAL SCH (08:08)
[2021-05-05] MEDS: Aspirin EC 81 mg TAB.EC (enteric coated) PO SCH (08:08)
[2021-05-05] MEDS: CMCS:Darifenacin 15 mg ER TAB (NF) PO SCH (08:09)
[2021-05-05] MEDS: CMCS:LoraTADine 10 mg TAB (NF) PO SCH (08:11)
[2021-05-05] MEDS: PTO: Brinzolamid/Brimonidin OPH(NF) 1 DROP BTL BOTH EYES SCH ×3 (08:19→22:37)
[2021-05-05] MEDS: SPIRIVA Respimat (tiotropium) 2.5 mcg/inh Inhaler INH SCH (09:10)
[2021-05-05] MEDS: Heparin DRIP 25,000 UNITS BAG 25,000 UNITS/500 ML BAG IV SCH (09:22)
[2021-05-05] MEDS: Warfarin DAILY REMINDER **NOTE FOLLOW UP SCH (16:28)
[2021-05-05] MEDS: Latanoprost 0.005% 2.5 ml BTL BOTH EYES SCH (22:37)
[2021-05-06 04:55] LABS: ABS Basophils 0.1 10^3/ul (0-0.2); ABS Eosinophils 0.1 10^3/ul (0-0.6); ABS Lymphocytes 0.6 10^3/ul (1.0-4.8); ABS Neutrophils 12.8 10^3/ul (1.5-7.7); Eosinophil % 0.8 %; Hematocrit 19 % (42-52); Hemoglobin 6.3 g/dL (14.0-18.0); Lymphocyte % 3.8 %; Mean Corpuscular HGB Conc 32 g/dL (31-36); Mean Corpuscular Hemoglobin 30 pg (27-31); Mean Corpuscular Volume 92 fL (80-94); Mean Platelet Volume 7.4 fL (7.4-10.4); Platelet Count 294 10^3/uL (150-450); Red Blood Count 2.09 10^6 /uL (4.18-5.48); Red Cell Distribution Width 16 % (10-15); White Blood Count 15.6 10^3/uL (3.5-10.8)
[2021-05-06 05:02] LABS: Activated Partial Thrombo Time 85.5 seconds (26.0-38.0); INR 3.75 (0.86-1.15)
[2021-05-06 05:12] LABS: C Reactive Protein 349.66 mg/L (<8.01); Calcium 8.1 mg/dL (8.6-10.3); Potassium 4.7 mmol/L (3.5-5.0)
[2021-05-06] MEDS: SPIRIVA Respimat (tiotropium) 2.5 mcg/inh Inhaler INH SCH (08:08)
[2021-05-06] MEDS: Norepinephrine 16MCG/ML IVPRE 4,000 MCG/250 ML BAG IV SCH ×2 (10:09→23:56)
[2021-05-06] MEDS: Insulin GLARGINE 100 un/ml 10 ml VIAL SUBCUT SCH (10:10)
[2021-05-06] MEDS: Aspirin EC 81 mg TAB.EC (enteric coated) PO SCH (10:10)
[2021-05-06] MEDS: Fluticasone NASAL SPRAY 50MCG 16 gm SPRAY BTL INTRANASAL SCH (10:10)
[2021-05-06] MEDS: PTO: Brinzolamid/Brimonidin OPH(NF) 1 DROP BTL BOTH EYES SCH ×3 (10:10→21:42)
[2021-05-06] MEDS: CMCS:Darifenacin 15 mg ER TAB (NF) PO SCH (10:10)
[2021-05-06] MEDS: [UNRECOGNIZED DRUG - OTHER] TOPICAL SCH (10:11)
[2021-05-06] MEDS ORDERED: fentaNYL 100 mcg/2 ml 50 MCG/ML VIAL IV SLOW PU PRN (10:57)
[2021-05-06] MEDS ORDERED: Lorazepam PYXIS KEY PRN (12:46)
[2021-05-06] MEDS: LORazepam 2 mg VIAL 1 ml IV PUSH PRN ×2 (13:02→21:58)
[2021-05-06] MEDS: fentaNYL 100 mcg/2 ml 50 MCG/ML VIAL IV SLOW PU PRN ×3 (13:13→20:35)
[2021-05-06 14:21] LABS: Hepatitis B Surface Antigen Nonreactive (Nonreactive)
[2021-05-06 14:38] LABS: Hepatitis B Surface Ab Not Immune (Immune)
[2021-05-06 15:07] LABS: PCO2 Arterial 34 mmHg (35-45); PO2 Arterial 96 mmHg (80-100)
[2021-05-06] MEDS: Warfarin DAILY REMINDER **NOTE FOLLOW UP SCH (15:19)
[2021-05-06] MEDS ORDERED: Zosyn per Pharmacy NOTE FOLLOW UP SCH (16:00)
[2021-05-06 16:09] LABS: Anion Gap 11 mmol/L (2-11); Blood Urea Nitrogen 25 mg/dL (6-24); CO2 Carbon Dioxide 25 mmol/L (22-32); Calcium 8.6 mg/dL (8.6-10.3); Chloride 100 mmol/L (101-111); Glucose 113 mg/dL (70-100); Sodium 136 mmol/L (135-145)
[2021-05-06] MEDS ORDERED: Piperacillin/Tazobac ADVAN 3.375 GM in NS 0.9% 100 ml BAG 100 ML IV ONE (16:30)
[2021-05-06] MEDS ORDERED: Warfarin - No Order Today **NOTE FOLLOW UP ONE (17:00)
[2021-05-06 17:18] LABS: Troponin I 0.75 ng/mL (<0.03)
[2021-05-06] MEDS: ZOSYN 3.375 GM Q12H per EXTENDED INFUSION IV SCH (22:18)
[2021-05-06] MEDS: Latanoprost 0.005% 2.5 ml BTL BOTH EYES SCH (22:26)
[2021-05-06] MEDS ORDERED: Norepinephrine 16MCG/ML IVPRE 4,000 MCG/250 ML BAG IV SCH (23:49)
[2021-05-07] MEDS: SPIRIVA Respimat (tiotropium) 2.5 mcg/inh Inhaler INH SCH (07:18)
[2021-05-07] MEDS: fentaNYL 100 mcg/2 ml 50 MCG/ML VIAL IV SLOW PU PRN ×3 (08:36→23:09)
[2021-05-07] MEDS: ZOSYN 3.375 GM Q12H per EXTENDED INFUSION IV SCH ×2 (08:42→21:11)
[2021-05-07 08:50] LABS: Hematocrit 32 % (42-52); Hemoglobin 9.5 g/dL (14.0-18.0); Mean Corpuscular HGB Conc 30 g/dL (31-36); Mean Corpuscular Hemoglobin 30 pg (27-31); Mean Corpuscular Volume 101 fL (80-94); Mean Platelet Volume 7.7 fL (7.4-10.4); Platelet Count 299 10^3/uL (150-450); Red Blood Count 3.19 10^6 /uL (4.18-5.48); Red Cell Distribution Width 18 % (10-15); White Blood Count 15.3 10^3/uL (3.5-10.8)
[2021-05-07] MEDS: Aspirin EC 81 mg TAB.EC (enteric coated) PO SCH (08:50)
[2021-05-07] MEDS: CMCS:Darifenacin 15 mg ER TAB (NF) PO SCH (08:52)
[2021-05-07 09:00] LABS: CO2 Carbon Dioxide 20 mmol/L (22-32); Calcium 8.6 mg/dL (8.6-10.3); Chloride 100 mmol/L (101-111); Sodium 134 mmol/L (135-145)
[2021-05-07 09:06] LABS: Blood Urea Nitrogen 41 mg/dL (6-24); Glucose 122 mg/dL (70-100)
[2021-05-07] MEDS: Fluticasone NASAL SPRAY 50MCG 16 gm SPRAY BTL INTRANASAL SCH (09:32)
[2021-05-07] MEDS: Insulin GLARGINE 100 un/ml 10 ml VIAL SUBCUT SCH (09:32)
[2021-05-07] MEDS: CMCS:LoraTADine 10 mg TAB (NF) PO SCH (09:32)
[2021-05-07 09:37] LABS: ABS Lymphocytes 0.9 10^3/ul (1.0-4.8); ABS Neutrophils 11.3 10^3/ul (1.5-7.7); Eosinophil % 0.2 %; Lymphocyte % 6.1 %; Nucleated Red Blood Cells % 0.1
[2021-05-07] MEDS: PTO: Brinzolamid/Brimonidin OPH(NF) 1 DROP BTL BOTH EYES SCH ×3 (09:56→21:10)
[2021-05-07 12:08] LABS: Anion Gap 14 mmol/L (2-11)
[2021-05-07] MEDS: LORazepam 2 mg VIAL 1 ml IV PUSH PRN ×2 (14:11→23:08)
[2021-05-07] MEDS: Warfarin DAILY REMINDER **NOTE FOLLOW UP SCH (16:28)
[2021-05-07] MEDS ORDERED: Warfarin - No Order Today **NOTE FOLLOW UP ONE (17:00)
[2021-05-07] MEDS ORDERED: NS 0.9% 100 ml BAG 100 ML ONE (20:44)
[2021-05-07] MEDS: Latanoprost 0.005% 2.5 ml BTL BOTH EYES SCH (21:10)
[2021-05-08] MEDS: fentaNYL 100 mcg/2 ml 50 MCG/ML VIAL IV SLOW PU PRN ×7 (05:04→22:58)
[2021-05-08] MEDS: SPIRIVA Respimat (tiotropium) 2.5 mcg/inh Inhaler INH SCH (07:00)
[2021-05-08] MEDS: Fluticasone NASAL SPRAY 50MCG 16 gm SPRAY BTL INTRANASAL SCH (08:21)
[2021-05-08] MEDS: [UNRECOGNIZED DRUG - OTHER] TOPICAL SCH (08:21)
[2021-05-08] MEDS: PTO: Brinzolamid/Brimonidin OPH(NF) 1 DROP BTL BOTH EYES SCH ×2 (08:21→15:10)
[2021-05-08] MEDS: Insulin GLARGINE 100 un/ml 10 ml VIAL SUBCUT SCH (08:21)
[2021-05-08] MEDS: LORazepam 2 mg VIAL 1 ml IV PUSH PRN ×5 (08:30→20:23)
[2021-05-08] MEDS: ZOSYN 3.375 GM Q12H per EXTENDED INFUSION IV SCH (10:16)
[2021-05-08] MEDS: Warfarin DAILY REMINDER **NOTE FOLLOW UP SCH (16:14)
[2021-05-08] MEDS ORDERED: Warfarin - No Order Today **NOTE FOLLOW UP ONE (17:00)
[2021-05-08] MEDS ORDERED: fentaNYL 100 mcg/2 ml 50 MCG/ML VIAL IV SLOW PU PRN ×2 (17:12→17:58)
[2021-05-08] MEDS ORDERED: LORazepam 2 mg VIAL 1 ml ONE (17:58)
[2021-05-08] MEDS ORDERED: Lorazepam PYXIS KEY ONE (17:58)
[2021-05-08 20:36] VITALS: BP 79/50
== END 2021-05-08 23:45 | disposition expired | DRG 175 ==
LOC: SUATTDRO 18:28 → MEDTELE 18:28 → ICU 05-06 10:00
PROVIDERS: ADMIT Internal Medicine; ATTEND Internal Medicine
PROC: O.GIEGD (2021-05-02 12:40)